=== PATIENT | female | born 1950 | race Caucasian/White ===

== ENCOUNTER → 2023-12-13 | Emergency (ER) | payer OTHER ==
[~2023-12-13] MED LIST: HYDROMORPHONE HCL 0.5 MG/0.5 ML INJ ONE; HYDROMORPHONE HCL 1 MG/ML INJ ONE; KETOROLAC 30 MG/ML INJ ONE; ONDANSETRON 4 MG/2 ML VIAL ONE
[2023-12-13 13:24] LABS: Absolute Eosinophils 0.1 K/uL (0-0.5); Absolute Monocytes 0.4 K/uL (0.1-1.3); Absolute Neutrophil 4.4 K/uL (1.8-8.0); Basophils % 0.6 % (0-1.3); Eosinophils % 1.5 % (0-4.4); Hematocrit 38.2 % (36.0-45.0); Lymphocytes % 17.2 % (15.3-44.8); MCH 30.2 pg (27.0-35.0); MCHC 33.9 g/dL (32.0-36.0); MPV 9.2 fL (7.6-11.3); Monocytes % 6.1 % (3.3-12.3); Neutrophils % 74.6 % (41.7-73.7); Platelets 170 thou/uL (152-406); Red Cell Distribution Width 15.4 % (12.1-15.2)
[2023-12-13 13:25] LABS: PT Prothrombin Time 13.9 SECONDS (9.5-12.5); Protime INR 1.27
[2023-12-13 13:34] LABS: Albumin 3.9 g/dL (3.4-5.0); Anion Gap 10.5 mEq/L (5.0-15.0); Bilirubin Direct 0.3 mg/dL (0-0.2); Bilirubin Indirect, Calculated 0.9 mg/dL (0.2-0.8); Bilirubin Total 1.2 mg/dL (0.2-1.0); Globulin 3.9 g/dL (2.3-3.5); Magnesium 1.9 mg/dL (1.6-2.4); Potassium 3.5 mEq/L (3.5-5.1); Protein, Total 7.8 g/dL (6.4-8.2); Troponin High Sensitivity 26.3 pg/mL (<58.9)
--- NOTE | 2023-12-13 14:37 | RAD REPORT ---
EXAM DESCRIPTION: USExtrem Venous W Compress Bil12/13/2023 1:42 pm CLINICAL HISTORY: Leg pain and swelling COMPARISON: none FINDINGS: The common femoral, superficial femoral, greater saphenous, popliteal and posterior tibial veins bilaterally are compressible and demonstrate augmentation. Doppler demonstrates good flow. Grayscale, color and spectral analysis performed on all vessels A 4.3 x 1.8 x 2.5 centimeter fluid collection right groin does not contain vascularity IMPRESSION: No evidence of deep venous thrombosis involving either lower extremity. 4.3 centimeter fluid collection right groin. A this may represent a subacute hematoma
--- NOTE | 2023-12-13 14:39 | RAD REPORT ---
EXAM DESCRIPTION: Teddy Single View12/13/2023 2:03 pm CLINICAL HISTORY: Chest pain COMPARISON: None FINDINGS: The lungs appear clear of acute infiltrate. The heart is mildly enlarged. Postsurgical changes involve the chest. IMPRESSION: No acute abnormalities displayed
--- NOTE | 2023-12-13 14:42 | RAD REPORT ---
EXAM DESCRIPTION: RAD - Hip Right 2 View - 12/13/2023 2:03 pm CLINICAL HISTORY: Right hip pain FINDINGS: A subcapital fracture right femur with moderate displacement. Lucencies throughout the right ischium and right pubic bone with surrounding sclerosis is of uncertai n etiology. No dislocation noted Osteoporosis
--- NOTE | 2023-12-13 14:44 | RAD REPORT ---
EXAM DESCRIPTION: RAD - Knee Right 2 View - 12/13/2023 2:03 pm CLINICAL HISTORY: Knee pain FINDINGS: No fracture or dislocation Mild to moderate joint space narrowing medial compartment. Diffuse edema within the subcutaneous tissues A small joint effusion
--- NOTE | 2023-12-13 15:03 | EDPHYS ---
Physician Documentation [facility] Name: Amy Gaming Age: 73 yrs Sex: Female : 1950 Arrival Date: 12/13/2023 Time: 12:41 Bed 4 Private MD: ED Physician Alie Rubio HPI: 12/12 13:13 This 73 yrs old Female presents to ER via EMS with complaints of leg pain and swelling. sp3 13:13 73-year-old female with history of hypertension, hypothyroidism with prior right hip sp3 flexors injury last fall for which she received physical therapy for now presents to the ED with a 9-day history of recurrent right flexor and upper leg musculature pain coupled with bilateral lower extremity swelling and calf pain. Patient denies any injury, prolonged immobilization, long travel, prior DVT or PE, chest pain, shortness of breath, back pain, fever, URI symptoms, or any other signs or symptoms on ROS at this time. Patient states that she is not having to use a cane and walker to ambulate again for the last several days. She presents to the ED for further evaluation.. Historical: - Allergies: 12:45 No Known Allergies; ko1 - PMHx: 12:45 Hypertensive disorder; Hypothyroidism; ko1 - Immunization history:: Adult Immunizations up to date. - Social history:: Smoking status: Patient denies any tobacco usage or history of. ROS: 13:15 Constitutional: Negative for fever, chills, and weight loss, Eyes: Negative for injury, sp3 pain, redness, and discharge, ENT: Negative for injury, pain, and discharge, Neck: Negative for injury, pain, and swelling, Cardiovascular: Negative for chest pain, palpitations, and edema, Respiratory: Negative for shortness of breath, cough, wheezing, and pleuritic chest pain, Abdomen/GI: Negative for abdominal pain, nausea, vomiting, diarrhea, and constipation, Back: Negative for injury and pain, : Negative for injury, bleeding, discharge, and swelling, Skin: Negative for injury, rash, and discoloration, Psych: Negative for depression, anxiety, suicide ideation, homicidal ideation, and hallucinations, Allergy/Immunology: Negative for hives, rash, and allergies, Endocrine: Negative for neck swelling, polydipsia, polyuria, polyphagia, and marked weight changes, Hematologic/Lymphatic: Negative for swollen nodes, abnormal bleeding, and unusual bruising, 13:15 All other systems are negative, Exam: 13:15 Constitutional: This is a well developed, well nourished patient who is awake, alert, sp3 and in no acute distress. Head/Face: Normocephalic, atraumatic. Eyes: Pupils equal round and reactive to light, extra-ocular motions intact. Lids and lashes normal. Conjunctiva and sclera are non-icteric and not injected. Cornea within normal limits. Periorbital areas with no swelling, redness, or edema. ENT: Nares patent. No nasal discharge, no septal abnormalities noted. External auditory canals are clear. Oropharynx with no redness, swelling, or masses, exudates, or evidence of obstruction, uvula midline. Mucous membranes moist. Neck: Trachea midline, no thyromegaly or masses palpated, and no cervical lymphadenopathy. Supple, full range of motion without nuchal rigidity, or vertebral point tenderness. No Meningismus. Chest/axilla: Normal chest wall appearance and motion. Nontender with no deformity. No lesions are appreciated. Cardiovascular: Regular rate and rhythm with a normal S1 and S2. No gallops, murmurs, or rubs. Normal PMI, no JVD. No pulse deficits. Respiratory: Lungs have equal breath sounds bilaterally, clear to auscultation and percussion. No rales, rhonchi or wheezes noted. No increased work of breathing, no retractions or nasal flaring. Abdomen/GI: Soft, non-tender, with normal bowel sounds. No distension or tympany. No guarding or rebound. No evidence of tenderness throughout. Skin: Warm, dry with normal turgor. Normal color with no rashes, no lesions, and no evidence of cellulitis. Psych: Awake, alert, with orientation to person, place and time. Behavior, mood, and affect are within normal limits. 13:15 Musculoskeletal/extremity: Patient has pain to palpation of musculature of the anterior thigh and also lateral collateral ligament extending into the calf on the right side. Patient also has pain on the left calf without upper extremity pain. Distal neurovascular exam is normal patient does have 3+ pitting edema.. 14:21 ECG was reviewed by the Attending Physician. EKG demonstrates normal sinus rhythm at 66 sp3 bpm with marked sinus arrhythmia, slightly leftward axis and nonspecific diffuse ST/T changes without evidence of acute ischemia. Vital Signs: 12:42 BP 148 / 115; Pulse 50; Resp 17; Temp 97; Pulse Ox 98% on R/A; ko1 13:24 BP 129 / 103; Pulse 49; Resp 15; Pulse Ox 100% ; ko1 13:30 BP 156 / 94; Pulse 50; Resp 16; Pulse Ox 99% ; ko1 14:21 BP 204 / 91; Pulse 48; Resp 15; Pulse Ox 97% ; ko1 15:50 Weight 84.82 kg (M); aa5 16:09 BP 193 / 58; Pulse 75; Resp 15; Pulse Ox 99% ; ko1 17:28 BP 158 / 63; Pulse 49; Resp 15; Temp 98; Pulse Ox 94% ; ko1 18:41 BP 184 / 61; Pulse 64; Resp 16; Pulse Ox 93% ; bp MDM: 12:42 Patient medically screened. sp3 13:19 Data reviewed: vital signs, nurses notes, EMS record, lab test result(s), EKG, sp3 radiologic studies. ED course: 73-year-old female with right leg pain and bilateral lower extremity swelling. Official diagnosis includes recurrence of muscular strain, peripheral edema, CHF, DVT, electrolyte abnormality, among others. Workup will include cardiac workup EKG, chest x-ray and labs along with x-rays of the right hip and right knee and bilateral ultrasound lower extremity assessing for venous clot. Disposition pending workup and patient course.. 15:00 ED course: Patient has a subcapital femoral neck fracture with displacement and sp3 hematoma on ultrasound. Also has a right knee effusion. Patient insist that she had no trauma. There is no orthopedic coverage today so we will transfer patient to patient's desired hospital of the [facility] system preferably in [place]. Patient's creatinine mildly elevated and alk phos elevated as well. I am concerned that this may be a pathologic fracture due to some other malignancy or other process. Further workup per inpatient team.. 12/12 12:45 Order name: Basic Metabolic Panel; Complete Time: 13:46 sp3 12/12 12:45 Order name: CBC with Diff; Complete Time: 13:46 sp3 12/12 12:45 Order name: LFT's; Complete Time: 13:46 sp3 12/12 12:45 Order name: Magnesium; Complete Time: 13:46 12/12 12:45 Order name: NT PRO-BNP; Complete Time: 13:46 12/12 12:45 Order name: PT-INR; Complete Time: 13:46 12/12 12:45 Order name: Troponin HS; Complete Time: 13:46 12/12 12:45 Order name: XRAY Chest (1 view); Complete Time: 14:50 12/12 12:45 Order name: Hip Right 2 View XRAY; Complete Time: 14:50 12/12 12:45 Order name: Knee Right 2 View XRAY; Complete Time: 14:50 12/12 12:45 Order name: US Extremity Venous W Compression Matheus; Complete Time: 14:50 12/12 12:45 Order name: EKG; Complete Time: 12:46 12/12 12:45 Order name: Cardiac monitoring; Complete Time: 12:48 12/12 12:45 Order name: EKG - Nurse/Tech; Complete Time: 12:54 12/12 12:45 Order name: IV Saline Lock; Complete Time: 13:10 12/12 12:45 Order name: Labs collected and sent; Complete Time: 13:11 12/12 12:45 Order name: O2 Per Protocol; Complete Time: 12:48 12/12 12:45 Order name: O2 Sat Monitoring; Complete Time: 12:48 12/12 13:23 Order name: Recheck Vital Signs; Complete Time: 13:24 3 Administered Medications: 13:24 Drug: Ketorolac IVP 15 mg IVP once Route: IVP; Site: right hand; ko1 13:40 Follow up: Response: No adverse reaction ko1 14:45 Drug: Ondansetron IVP 4 mg IVP once; over 2 minutes Route: IVP; Site: right hand; ko1 16:21 Follow up: Response: No adverse reaction bp 14:48 Drug: HYDROmorphone IVP 0.5 mg IVP once Route: IVP; Site: right hand; ko1 16:21 Follow up: Response: No adverse reaction bp 18:41 Drug: HYDROmorphone IVP 1 mg IVP once Route: IVP; Site: right hand; bp 18:41 Follow up: Response: No adverse reaction bp 18:41 Drug: Ondansetron IVP 4 mg IVP once; over 2 minutes Route: IVP; Site: right hand; bp 18:41 Follow up: Response: No adverse reaction bp Disposition Summary: 12/13/23 15:12 Transfer Ordered Notes: Transfer Location: [facility] sp3 Reason: Higher level of care sp3 Condition: Stable(12/13/23 15:12) sp3 Problem: new sp3 Symptoms: have worsened sp3 Accepting Physician: VAIBHAV hospitalist and orthopedist at [facility](12/13/23 18:42) bp Diagnosis - Right hip femoral neck fracture, right knee effusion, hypertension, possible sp3 pathologic fracture Forms: - Medication Reconciliation Form sp3 - SBAR form sp3 Signatures: Dispatcher [employer] EDMS Robert Bhandari RN RN Alie Alejo MD MD sp3 Becky Draper RN RN ko1 Corrections: (The following items were deleted from the chart) 14:22 14:21 ECG was reviewed by the Attending Physician. EKG demonstrates atrial fibrillation sp3 at 66 bpm with nonspecific diffuse ST's ST changes without evidence of acute ischemia, leftward axis. sp3 15:09 15:02 Home sp3 sp3 15:09 15:02 Stable sp3 sp3 15:09 15:02 Right knee effusion, right lower extremity pain sp3 sp3 15:11 15:00 ED course: Patient has right knee effusion. Otherwise negative workup including sp3 x-rays and ultrasounds. Patient has mild elevation in creatinine and continued high blood pressure. Upon further history she has not taken any of her blood pressure medications and has not seen her doctor since moving here 2 years ago due to not having a PCP. I have counseled her on importance of seeing a doctor. I will start her on HCTZ and discharge her home on p.o. pain meds and orthopedic follow-up.. sp3 15:29 15:00 Knee Immobilizer ordered. sp3 bp 15:29 15:00 Crutches ordered. sp3 bp 18:42 15:12 TBD hospitalist and orthopedist at [facility] sp3 bp
--- NOTE | 2023-12-13 15:03 | ER ---
Nurse's Notes [facility] Name: Amy Gaming Age: 73 yrs Sex: Female : 1950 Arrival Date: 12/13/2023 Time: 12:41 Bed 4 Private MD: Diagnosis: Right hip femoral neck fracture, right knee effusion, hypertension, possible pathologic fracture Presentation: 12/12 12:42 Chief complaint: EMS states: patient has been having pain in right leg for over a week, ko1 unable to walk today due to the pain. Coronavirus screen: At this time, the client does not indicate any symptoms associated with coronavirus-19. Ebola Screen: No symptoms or risks identified at this time. Initial Sepsis Screen: Does the patient meet any 2 criteria? No. Patient's initial sepsis screen is negative. Does the patient have a suspected source of infection? No. Patient's initial sepsis screen is negative. Risk Assessment: Do you want to hurt yourself or someone else? Patient reports no desire to harm self or others. Onset of symptoms is unknown. 12:42 Method Of Arrival: EMS: [facility] ko1 12:42 Acuity: NAM 3 ko1 Triage Assessment: 12:45 General: Appears in no apparent distress. Behavior is calm, cooperative, appropriate ko1 for age. Pain: Complains of pain in right leg. Historical: - Allergies: 12:45 No Known Allergies; ko1 - PMHx: 12:45 Hypertensive disorder; Hypothyroidism; ko1 - Immunization history:: Adult Immunizations up to date. - Social history:: Smoking status: Patient denies any tobacco usage or history of. Screenin:10 [facility] ED Fall Risk Assessment (Adult) History of falling in the last 3 months, ko1 including since admission Yes- single mechanical fall (1 pt) Confusion or Disorientation No (0 pts) Intoxicated or Sedated No (0 pts) Impaired Gait Yes (1 pt) Mobility Assist Device Used Yes (1 pt) Altered Elimination No (0 pt) Score/Fall Risk Level 3 or more points = High Risk Oriented to surroundings, Maintained a safe environment, Educated pt \T\ family on fall prevention, incl call for assistance when getting out of bed, Assessed \T\ reinforced patient's understanding of fall precautions, Provided non-skid footwear, Hourly rounding (assess needs \T\ fall precautionary measures) done, Used ambulatory aids as needed (educated on \T\ assisted with), Used gait belt as appropriate Implemented a Fall Risk Plan of Care, Apply high fall risk patient identification: yellow non skid footwear/ fall signage, Remained w/in arm's length of patient and in sight while toileting, Offered frequent toileting (1:1 observation), Remained with patient while ambulating, Utilized family, sitter, or virtual diagnostic assistant as indicated. Abuse screen: Denies threats or abuse. Denies injuries from another. Nutritional screening: No deficits noted. Tuberculosis screening: No symptoms or risk factors identified. Assessment: 13:13 General: Appears in no apparent distress. uncomfortable, Behavior is calm, cooperative, ko1 appropriate for age. Pain: Complains of pain in right leg. Neuro: No deficits noted. Cardiovascular: No deficits noted. Respiratory: No deficits noted. GI: No signs and/or symptoms were reported involving the gastrointestinal system. : No deficits noted. EENT: No deficits noted. Derm: No deficits noted. Musculoskeletal: Reports pain in right leg. 14:30 Reassessment: No changes from previously documented assessment. Patient is alert, bp oriented x 3, equal unlabored respirations, skin warm/dry/pink. 15:30 Reassessment: DISCHARGE CANCELLED 2/2 XRAY FINDINGS. bp 16:17 Reassessment: REPORT TO [facility] FOR TRANSFER. bp 18:41 Reassessment: PT LENA WITH EMS. bp Vital Signs: 12:42 BP 148 / 115; Pulse 50; Resp 17; Temp 97; Pulse Ox 98% on R/A; ko1 13:24 BP 129 / 103; Pulse 49; Resp 15; Pulse Ox 100% ; ko1 13:30 BP 156 / 94; Pulse 50; Resp 16; Pulse Ox 99% ; ko1 14:21 BP 204 / 91; Pulse 48; Resp 15; Pulse Ox 97% ; ko1 15:50 Weight 84.82 kg (M); aa5 16:09 BP 193 / 58; Pulse 75; Resp 15; Pulse Ox 99% ; ko1 17:28 BP 158 / 63; Pulse 49; Resp 15; Temp 98; Pulse Ox 94% ; ko1 18:41 BP 184 / 61; Pulse 64; Resp 16; Pulse Ox 93% ; bp ED Course: 12:42 Patient arrived in ED. ko1 12:42 Alie Rubio MD is Attending Physician. sp3 12:42 Becky Draper, RN is Primary Nurse. ko1 12:45 Triage completed. ko1 12:45 Arm band placed on right wrist. Patient placed in an exam room, on a stretcher, on ko1 gambling monitor, on pulse oximetry, Patient notified of wait time. 13:10 Inserted saline lock: 20 gauge in right hand, using aseptic technique. Blood collected. ko1 13:11 Patient has correct armband on for positive identification. Fall risk band placed. Bed ko1 in low position. Call light in reach. Side rails up X2. Client placed on continuous cardiac and pulse oximetry monitoring. NIBP monitoring applied. surveillance monitor on. Door closed. Noise minimized. Lights dimmed. Warm blanket given. Pillow given. 13:11 Basic Metabolic Panel Sent. ko1 13:11 CBC with Diff Sent. ko1 13:11 LFT's Sent. ko1 13:11 Magnesium Sent. ko1 13:11 NT PRO-BNP Sent. ko1 13:11 PT-INR Sent. ko1 13:11 Troponin HS Sent. ko1 13:44 US Extremity Venous W Compression Matheus In Process Unspecified. EDMS 14:05 XRAY Chest (1 view) In Process Unspecified. EDMS 14:05 Hip Right 2 View XRAY In Process Unspecified. EDMS 14:05 Knee Right 2 View XRAY In Process Unspecified. EDMS 15:00 Assisted with bedpan. ko1 15:02 Chris Gilbert MD is Referral Physician. sp3 15:41 initiated transfer to [facility]. bd 15:43 pt denied at [facility] due to all campus' being on saturation,per elana. bd 15:58 initiated transfer to [facility], pt accepted in transfer to [facility] er by leonel Amin admin approval given by Conchita Natarajan RN. 16:17 No provider procedures requiring assistance completed. Patient transferred, IV remains bp in place. 16:42 Provided Education on: transfer. Assisted with bedpan. Cleaned of incontinence. ko1 Administered Medications: 13:24 Drug: Ketorolac IVP 15 mg IVP once Route: IVP; Site: right hand; ko1 13:40 Follow up: Response: No adverse reaction ko1 14:45 Drug: Ondansetron IVP 4 mg IVP once; over 2 minutes Route: IVP; Site: right hand; ko1 16:21 Follow up: Response: No adverse reaction bp 14:48 Drug: HYDROmorphone IVP 0.5 mg IVP once Route: IVP; Site: right hand; ko1 16:21 Follow up: Response: No adverse reaction bp 18:41 Drug: HYDROmorphone IVP 1 mg IVP once Route: IVP; Site: right hand; bp 18:41 Follow up: Response: No adverse reaction bp 18:41 Drug: Ondansetron IVP 4 mg IVP once; over 2 minutes Route: IVP; Site: right hand; bp 18:41 Follow up: Response: No adverse reaction bp Medication: 16:42 VIS not applicable for this client. ko1 Outcome: 15:02 Discharge ordered by . sp3 15:12 ER care complete, transfer ordered by sp3 18:42 Transferred by ground EMS Note: [facility] bp 18:42 Condition: stable 18:42 Instructed on the need for transfer, 18:42 Patient left the ED. bp Signatures: Dispatcher [employer] EDMS Joleen Rios Audri RN RN aa5 Robert Bhandari RN RN bp Alie Rubio MD MD sp3 Becky Draper RN RN ko1
[2023-12-13 20:09] VITALS: BP 184/61; TEMP 98; O2SAT 93
--- NOTE | 2023-12-14 17:04 | EKG ---
Test Date: 2023-12-13 Test Time: 12:41:02 Building Pressure Washer: CARMELA MEASUREMENT RESULTS: Intervals: Rate: 66 SC: 172 QRSD: 86 QT: 416 QTc: 436 [place]: P: 81 SC: 172 QRS: -25 T: 85 INTERPRETIVE STATEMENTS: Sinus rhythm with marked sinus arrhythmia Nonspecific ST and T wave abnormality Abnormal ECG No previous ECG available for comparison Electronically Signed On 12-14-23 17:00:59 CDT by Yoan Andrews
== END ==
LOC: ER 12:41
DX: S72.001A Fracture of unspecified part of neck of right femur, initial encounter for closed fracture (principal); M25.461 Effusion, right knee; I10 Essential (primary) hypertension
CPT/HCPCS: 93005; 85025; 80048; 36415; 83735; 85610; 80076; 84484; 83880; 71045; 73502; 73560; 93970; J1170 ×2; J2405 ×2; 96374; 96375; 99285

== ENCOUNTER 2024-01-09 13:28 | Inpatient (IN) | payer OTHER ==
--- OUTSIDE RECORDS SUMMARY | 2024-01-09 13:31 | XMS REPORT | Continuity of Care Document ---
Author Name Unknown Address [address] [facility]. 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 Role Phone ALYSSA KUNZ Primary Care Physician DANIELA Hernandez Attending Clinician Unavail able ALISTAIR GARNER Attending Clinician Donna Fern Bills Attending Clinician UnaRah Castillo Attending Clinician Unavailable ADDIE AGUILERA Attending Clinician UnavailADDIE Morgan Attending Clinician UnavailHafsa Angel PTA Attending Clinician Unavail able Addie Aguilera MD Attending Clinician [phone] Po Manzanares PA-C Attending Clinician [phone] Irais Das PTA Attending Clinician Samara Coulter PT Attending Clinician UnavailPO Muhammad Attending Clinician Unavailable Unknown, Attending Attending Clinician Unavailab shahana Doctor Unassigned, [place] Attending Clinician U Daniela Naqvi MD Attending Clinician [phone] Alyssa Kunz MD Attending Clinician [phone] Pepe BERTRAND, Kailyn Shields Attending Clinician Unavailab le Nurse, [facility] Pcp Assessment Clinic Attending [place] glover Unavailable Rah Jiang MD Attending Clinician [phone] RAH JIANG Attending Clinician Unavailable Scooby Austin Attending Clinician Unavailable Pcp, Medicare Wellness [facility] Fm Attending Clinicia n Unavailable ALYSSA KUNZ Attending Clinician Unavailable Pcp-Lab Attending Clinician Unavailable Srikanth Rogers DO Attending Clinician [phone] DAYNA SINGLETON Attending Clinician Unavailable Alfonso Lucia DO Attending Clinician [phone] Dayna Singleton MD Attending Clinician [phone] Thea Unger MD Attending Clinician + [phone] Tremayne Miller MD Attending Clinician [phone] Fern Mata Admitting Clinician Rah Toney Admitting Clinician Unavailable DANIELA MCQUEEN Admitting Clinician Unavail able Payers Payer Name Policy Type Policy Number Effective Date Expirati on Date Source MEDICARE PART A \T\ B [id number] 2014 00:00:00 PHYSICIAN CAROLINE [id number] 2017 00:00:00 Problems Condition Name Condition Details Condition Category Status Onset Date Resolution Date Last Treatment Date Treating Clinician Comments Source Skin lesion of face Skin lesion of face Disease Active 05-01 00:00: 00 [facility] Liver cyst Liver cyst Disease Active 02-06 00:00: 00 [facility] Hyperbilir ubinemia Hyperbilir ubinemia Disease Active 02-06 00:00: 00 [facility] Invasive ductal carcinoma of breast, stage I, right Invasive ductal carcinoma of breast, stage I, right Disease Active 2017-09 00:00: 00 [facility] Vitamin D deficiency Vitamin D deficiency Disease Active 01-04 00:00: 00 [facility] Essential hypertensi on Essential hypertensi on Disease Active 06-10 00:00: 00 [facility] Acquired hypothyroi dism Acquired hypothyroi dism Disease Active 06-10 00:00: 00 [facility] History of condyloma acuminatum History of condyloma acuminatum Disease Active 09-25 00:00: 00 [facility] History of cervical dysplasia History of cervical dysplasia Disease Active 09-25 00:00: 00 [facility] Urinary incontinen ce, unspecifie d incontinen ce type Urinary incontinen ce, unspecifie d incontinen ce type Disease Active 09-24 00:00: 00 [facility] Cystocele, midline Cystocele, midline Disease Active 09-24 00:00: 00 [facility] Invasive ductal carcinoma of breast, stage IIIA, left Invasive ductal carcinoma of breast, stage IIIA, left Disease Active 2014-09 00:00: 00 Overview: Formattin g of this note might be different from the original. Cancer type: Breast cancer, bilateral Date of diagnosis : January 2014.Age when diagnosed : 64Patholo gy report: Invasive ductal carcinoma of left breast, invasive ductal carcinoma of right breastSta ge: Right Breast Stage I: T1, N0, M0Left Breast Stage IIIA: T2, N2, M0 Surgery: Yes. Surgery: Double partial mastectom y Surgery Date: 11/04/2015 Radiation :Radiatio n to chestLast day of radiation : 04/24/2016 (L), 04/16/2016 (R)Chemot herapy: Yes. Completed chemo?: yes.Last date of chemother apy: 02/10/2016 Chemother apy agent: [id number] tor Therapy: Anastrazo le, letrozole . Currently taking exemestan e. [facility] Allergies, Adverse Reactions, Alerts Allergy Name Allergy Type Status Severity Reaction(s) Onset Date Inactive Date Treating Clinician Comments Source codeine DA Active U NAUSEA 12-13 00:00: 00 [facility] aspirin DA Active U NAUSEA 12-13 00:00: 00 [facility] cefdinir DA Active U NAUSEA 12-13 00:00: 00 [facility] morphine DA Active U NAUSEA 12-13 00:00: 00 [facility] No Known Allergie s DA Active U 12-12 00:00: 00 [facility] MORPHINE DRUG INGREDI Active N/V 04-11 00:00: 00 [facility] Morphine Propensi ty to adverse reaction s Active Nausea and/or Vomiting 04-11 00:00: 00 [facility] ASPIRIN DRUG INGREDI Active Other-Cmnt 2016-09 00:00: 00 [facility] Aspirin Propensi ty to adverse reaction s Active Other - See comments 2016-09 00:00: 00 [facility] Iodine And Iodide Containi ng Products Propensi ty to adverse reaction s Active Unknown - See comments 05-01 00:00: 00 Upsets her stomach [facility] CEFDINIR DRUG INGREDI Active Hives 05-01 00:00: 00 [facility] CODEINE DRUG INGREDI Active Unknown-Cmnt 05-01 00:00: 00 [facility] IODINE AND IODIDE CONTAINI NG PRODUCTS Drug Class Active Unknown-Cmnt 05-01 00:00: 00 [facility] Cefdinir Propensi ty to adverse reaction s Active Hives 05-01 00:00: 00 [facility] Iodine And Iodide Containi ng Products Propensi ty to adverse reaction s Active Unknown - See comments 05-01 00:00: 00 Upsets her stomach [facility] Codeine Propensi ty to adverse reaction s Active Unknown - See comments 05-01 00:00: 00 [facility] Social History Social Habit Start Date Stop Date Quantity Comments Source History SDOH Alcohol Frequency [facility] History SDOH Alcohol Std Drinks [facility] History SDOH Alcohol Binge [facility] Gender identity [facility] Sexual orientation [facility] Alcohol intake 2023-04-30 00:00:00 2023-04-30 00:00:00 0 /d [facility] Exposure to SARS-CoV-2 (event) 2022-05-24 00:00:00 2022-06-03 13:15:00 Not sure [facility] Tobacco use and exposure 2022-04-24 00:00:00 2022-04-24 00:00:00 Smokeless tobacco non-user [facility] History of Social function 2022-04-24 00:00:00 2022-04-24 00:00:00 [facility] Alcohol Comment 2015-05-07 00:00:00 2015-05-07 00:00:00 drank for 4-5 years, quit 1987 [facility] Sex Assigned At 1950 00:00:00 1950 00:00:00 [facility] Smoking Status Start Date Stop Date Source Never smoked tobacco [facility] Medications Ordered Medication Name Filled Medication Name Start Date Stop Date Current Medication? Ordering Clinician Indication Dosage Frequency Signature (SIG) Comments Components Source albuterol (VENTOLIN) inhaler 2 Puff 2022-09 20:00: 00 07-20 19:17 :00 No [id number] 2{puff} [facility] albuterol 90 mcg/actuati on inhaler 2022-09 00:00: 00 Yes [id number] 2{puff} Inhale 2 Puffs every 6 (six) hours as needed for Shortness of Breath. [facility] HYDROCHLORO THIAZIDE 25 mg tablet 01-30 00:00: 00 Yes [id number] TAKE 1 TABLET BY MOUTH EVERY DAY [facility] LEVOTHYROXI NE 50 mcg tablet 01-30 00:00: 00 Yes [id number] 50ug TAKE 1 TABLET BY MOUTH EVERY MORNING. ON EMPTY STOMACH. [facility] multivit with iron,minera ls (MULTIVITAM IN AND MINERALS ORAL) 01-03 11:29: 15 Yes Take by mouth daily. [facility] levothyroxi ne 50 mcg tablet 12-20 00:00: 00 01-30 00:00 :00 No [id number] 50ug Take 1 tablet by mouth every morning. On empty stomach. [facility] hydroCHLORO thiazide 25 mg tablet 12-20 00:00: 00 01-30 00:00 :00 No [id number] 25mg Take 1 tablet by mouth daily. [facility] HYDROCHLORO THIAZIDE 25 mg tablet 3- 00:00: 00 12-20 00:00 :00 No [id number] TAKE 1 TABLET BY MOUTH EVERY DAY [facility] levothyroxi ne 50 mcg tablet 2019-09 2- 00:00: 00 12-11 00:00 :00 No [id number] 50ug Take 1 tablet by mouth every morning. On empty stomach. [facility] albuterol (PROAIR HFA) 90 mcg/actuati on inhaler 2019-09 00:00: 00 Yes [id number] 2{puff} Inhale 2 Puffs every 6 (six) hours as needed for Wheezing or Shortness of Breath. [facility] Cholecalcif sly, Vitamin D3, (VITAMIN D3) 2,000 unit capsule 2016-09 00:00: 00 Yes [id number] Take 1 capsule by mouth daily. [facility] Vital Signs Vital Name Observation Time Observation Value Comments S ource Systolic blood pressure 2023-07-20 19:21:00 146 mm[Hg] [facility] Diastolic blood pressure 2023-07-20 19:21:00 85 mm[Hg] [facility] Heart rate 2023-07-20 19:01:00 60 /min [facility] Body temperature 2023-07-20 19:01:00 36.72 [place] [facility] Respiratory rate 2023-07-20 19:01:00 18 /min [facility] Body height 2023-07-20 19:01:00 160 cm [facility] Body weight 2023-07-20 19:01:00 91.581 kg [facility] BMI 2023-07-20 19:01:00 35.76 kg/m2 [facility] Oxygen saturation in Arterial blood by Pulse oximetry 2023-07-20 19:01:00 95 /min [facility] Systolic blood pressure 2023-04-30 18:03:00 163 mm[Hg] [facility] Diastolic blood pressure 2023-04-30 18:03:00 79 mm[Hg] [facility] Heart rate 2023-04-30 18:03:00 61 /min [facility] Respiratory rate 2023-04-30 18:03:00 18 /min [facility] Body height 2023-04-30 18:03:00 160 cm [facility] Body weight 2023-04-30 18:03:00 92.035 kg [facility] BMI 2023-04-30 18:03:00 35.94 kg/m2 [facility] Oxygen saturation in Arterial blood by Pulse oximetry 2023-04-30 18:03:00 97 /min [facility] Systolic blood pressure 2022-04-24 19:04:00 157 mm[Hg] [facility] Diastolic blood pressure 2022-04-24 19:04:00 93 mm[Hg] [facility] Heart rate 2022-04-24 19:04:00 87 /min Unive [facility] Body temperature 2022-04-24 19:04:00 36.94 [place] [facility] Body height 2022-04-24 19:04:00 162.6 cm [facility] Body weight 2022-04-24 19:04:00 92.806 kg [facility] BMI 2022-04-24 19:04:00 35.12 kg/m2 [facility] Oxygen saturation in Arterial blood by Pulse oximetry 2022-04-24 19:04:00 95 /min [facility] Procedures Procedure Date / Time Performed Performing Clinician Source [id number] 2023-12-17 00:00:00 ROSMI [facility] [id number] 2023-12-17 00:00:00 ROSMI [facility] [id number] 2023-12-15 00:00:00 SHAJA02 [facility] XR HIPS 2 VW BILATERAL 2023-07-20 19:48:44 Janee Manzanares [facility] ASSIGNMENT OF BENEFITS 2023-07-20 18:47:56 Docto r Unassigned, [place] [facility] BI SCREENING TOMOSYNTHESIS BILATERAL 2023-04-30 17:23:27 Daniela Mcqueen [facility] Encounters Start Date/Time End Date/Time Encounter Type Admission Type Attending [facility] Facility Care Department Encounter ID Source 2023-12-16 17:55:00 2023-12-24 12:35:00 Inpatient Fern Tovar [facility] [id number] [facility] 2023-12-13 22:03:00 2023-12-16 18:08:00 Inpatient Rah Ramirez [facility] MED[facility].01 [id number] [facility] 2023-09-09 09:30:00 2023-09-09 10:14:38 Outpatient R ADDIE AGUILERA CRAIG [facility] [id number] [facility] 2023-09-09 09:30:00 2023-09-09 10:14:38 Ancillary Visit Hafsa Villa Craig L [facility] 1.2.840.114 350.1.13.10 4.2.7.2.686 [id number] [facility] 2023-09-08 11:00:00 2023-09-08 11:45:00 Ancillary Visit Hafsa Villa Craig L [facility] 1.2.840.114 350.1.13.10 4.2.7.2.686 [id number] [facility] 2023-09-02 11:00:00 2023-09-02 11:45:00 Ancillary Visit Hafsa Villa Craig L Vanaphan, Nancy [facility] 1.2.840.114 350.1.13.10 4.2.7.2.686 [id number] [facility] 2023-08-31 10:15:00 2023-08-31 11:00:00 [facility]illary [facility] 1.2.840.114 350.1.13.10 4.2.7.2.686 [id number] [facility] 2023-08-24 16:00:00 2023-08-24 16:33:59 Ancillary Visit Samara Can[facility] 1.2.840.114 350.1.13.10 4.2.7.2.686 [id number] [facility] 2023-08-20 10:15:00 2023-08-20 11:06:21 Ancillary Visit Hafsa Villa Craig L Vanaphan, [facility] BUILDING 1.2.840.114 350.1.13.10 4.2.7.2.686 [id number] [facility] 2023-08-18 11:00:00 2023-08-18 11:45:00 Ancillary [facility]sa [facility] 1.2.840.114 350.1.13.10 4.2.7.2.686 [id number] [facility] 2023-08-18 11:00:00 2023-08-18 11:00:00 Outpatient R ADDIE AGUILERA CRAIG [facility] [id number] [facility] 2023-08-16 11:00:00 2023-08-16 11:00:00 Outpatient R [facility] [id number] [facility] 2023-08-10 09:30:00 2023-08-10 10:23:34 Ancillary Visit Hafsa Villa Craig L [facility] 1.2840.114 350.1.13.10 4.2.7.2.686 [id number] [facility] 2023-08-04 09:30:00 2023-08-04 10:15:00 Ancillary Visit Allen [facility] 1.2840.114 350.1.13.10 4.2.7.2.686 [id number] [facility] 2023-07-30 10:15:00 2023-07-30 11:03:11 Ancillary Visit Samara Cano Craig L [facility] 1.2.114 350.1.13.10 4.2.7.2.686 [id number] [facility] 2023-07-20 14:12:34 2023-07-20 23:59:00 Outpatient R BILLY PO [facility] [id number] [facility] 2023-07-20 14:12:34 2023-07-20 23:59:00 Hospital Encounter Billy Po [facility] 1.2840.114 350.1.13.10 4.2.7.2.686 [id number] [facility] 2023-07-20 13:40:00 2023-07-20 15:17:33 Urgent Care Po Manzanares Unknown, Attending [facility] 1.2840.114 350.1.13.10 4.2.7.2.686 [id number] [facility] 2023-07-20 00:00:00 2023-07-20 00:00:00 Orders Only Doctor Unassigned, [place] [facility] 1.2840.114 350.1.13.10 4.2.7.2.686 [id number] [facility] 2023-04-30 11:47:52 2023-04-30 23:59:00 Hospital Encounter Daniela Mcqueen [facility] 1.2.840.114 350.1.13.10 4.2.7.2.686 [id number] [facility] 2023-04-30 13:00:00 2023-04-30 13:15:00 Office Visit Daniela Mcqueen [facility] 1.2.840.114 350.1.13.10 4.2.7.2.686 [id number] [facility] 2023-04-30 13:00:00 2023-04-30 13:00:00 Outpatient R CHARISSE DANIELA [facility] [id number] [facility] 2023-01-29 00:00:00 2023-01-29 00:00:00 Patient Secure Msg KunzAlyssa [facility] 1.2.840.114 350.1.13.10 4.2.7.2.686 [id number] [facility] 2022-06-29 00:00:00 2022-06-29 00:00:00 Patient Secure Msg Doctor Unassigned, [place] [facility] 1.2.840.114 350.1.13.10 4.2.7.2.686 [id number] [facility] 2022-04-25 00:00:00 2022-04-25 00:00:00 Patient Secure Msg Doctor Unassigned, [place] [facility] 1.2.840.114 350.1.13.10 4.2.7.2.686 [id number] [facility] 2022-04-24 13:03:42 2022-04-24 23:59:00 Outpatient R DANIELA MCQUEEN [facility] [id number] [facility] 2022-04-24 13:03:42 2022-04-24 23:59:00 Hospital Encounter Daniela Mcqueen [facility] 1.2.840.114 350.1.13.10 4.2.7.2.686 [id number] [facility] 2022-04-24 14:15:00 2022-04-24 14:30:00 [facility] 1.2.840.114 350.1.13.10 4.2.7.2.686 [id number] [facility] 2022-04-24 14:15:00 2022-04-24 14:15:00 Outpatient R DANIELA MCQUEEN [facility] [id number] [facility] 2022-03-20 00:00:00 2022-03-20 00:00:00 Refill Alyssa Kunz [facility] 1.2.840.114 350.1.13.10 4.2.7.2.686 [id number] [facility] 2022-01-30 00:00:00 2022-01-30 00:00:00 Refill Alyssa Kunz [facility] 1.2.840.114 350.1.13.10 4.2.7.2.686 [id number] [facility] 2021-05-09 00:00:00 2021-05-09 00:00:00 Patient Secure Msg Alyssa Kunz [facility] 1.2.840.114 350.1.13.10 4.2.7.2.686 [id number] [facility] 2021-05-07 00:00:00 2021-05-07 00:00:00 Patient Secure Msg Doctor Unassigned, [place] [facility] 1.2.840.114 350.1.13.10 4.2.7.2.686 [id number] [facility] 2021-04-30 00:00:00 2021-04-30 00:00:00 Letter (Out) Kailyn Cantu [facility] 1.0.114 350.1.13.10 4.2.7.2.686 [id number] [facility] 2021-04-30 00:00:00 2021-04-30 00:00:00 Telephone Alyssa Kunz [facility] 1.0.114 350.1.13.10 4.2.7.2.686 [id number] [facility] 2021-04-30 00:00:00 2021-04-30 00:00:00 Patient Secure Msg Doctor Unassigned, [place] [facility] 1.0.114 350.1.13.10 4.2.7.2.686 [id number] [facility] 2021-04-29 18:30:33 2021-04-29 18:45:33 Laboratory Only Nurse, Gal Pcp Assessment Clinic Rah Jiang [facility] 1.840.114 350.1.13.10 4.2.7.2.686 [id number] [facility] 2021-04-29 18:30:00 2021-04-29 18:30:00 Outpatient RAH CREWS [facility] [id number] [facility] 2021-04-08 13:00:00 2021-04-08 13:00:00 Outpatient DANIELA NORMAN [facility] [id number] [facility] 2021-04-01 09:17:33 2021-04-01 23:59:00 Hospital Encounter Daniela Mcqueen [facility] 1.840.114 350.1.13.10 4.2.7.2.686 [id number] [facility] 2021-04-01 00:00:00 2021-04-01 00:00:00 Outpatient DANIELA NORMAN [facility] [id number] [facility] 2021-01-18 00:00:00 2021-01-18 00:00:00 Patient Secure Msg Doctor Unassigned, [place] [facility]. 1..114 350.1.13.10 4.2.7.2.686 [id number] [facility] 2021-01-14 00:00:00 2021-01-14 00:00:00 Pre Visit Outreach Scooby Austin [facility] 1.114 350.1.13.10 4.2.7.2.686 [id number] [facility] 2021-01-03 10:55:07 2021-01-03 11:46:59 Nurse Visit Pcp, Medicare Wellness Gal Alyssa Kunz [facility] 1..114 350.1.13.10 4.2.7.2.686 [id number] [facility] 2021-01-03 11:00:00 2021-01-03 11:00:00 Outpatient R ALYSSA KUNZ [facility] [id number] [facility] 2020-12-24 00:00:00 2020-12-24 00:00:00 Pre Visit Outreach Alyssa Kunz [facility] 1..114 350.1.13.10 4.2.7.2.686 [id number] [facility] 2020-12-20 12:38:06 2020-12-20 12:53:06 Auto Service Station Attendant Visit Pcp-Lab Alyssa Kunz [facility] 1.20.114 350.1.13.10 4.2.7.2.686 [id number] [facility] 2020-12-20 11:16:56 2020-12-20 12:40:04 Office Visit Alyssa Kunz [facility] 1.2.840.114 350.1.13.10 4.2.7.2.686 [id number] [facility] 2020-12-20 11:00:00 2020-12-20 11:00:00 Outpatient R ALYSSA KUNZ [facility] [id number] [facility] 2020-12-20 00:00:00 2020-12-20 00:00:00 Orders Only Doctor Unassigned, [place] [facility] 1.2.840.114 350.1.13.10 4.2.7.2.686 [id number] [facility] 2020-12-11 00:00:00 2020-12-11 00:00:00 Refill Alyssa Kunz [facility] 1.2.840.114 350.1.13.10 4.2.7.2.686 [id number] [facility] 2020-11-27 00:00:00 2020-11-27 00:00:00 Patient Secure Msg Alyssa Kunz [facility] 1.2.840.114 350.1.13.10 4.2.7.2.686 [id number] [facility] 2020-11-25 00:00:00 2020-11-25 00:00:00 Patient Outreach Srikanth Rogers [facility] 1.2.840.114 350.1.13.10 4.2.7.2.686 [id number] [facility] 2020-11-21 00:00:00 2020-11-21 00:00:00 Refill Alyssa Kunz [facility] 1.2.840.114 350.1.13.10 4.2.7.2.686 [id number] [facility] 2020-08-27 00:00:00 2020-08-27 00:00:00 Refill Alyssa Kunz [facility] 1.2.840.114 350.1.13.10 4.2.7.2.686 [id number] [facility] 2020-08-19 00:00:00 2020-08-19 00:00:00 Refill Alyssa Kunz [facility] 1.2.840.114 350.1.13.10 4.2.7.2.686 [id number] [facility] 2020-07-23 00:00:00 2020-07-23 00:00:00 Refill Alyssa Kunz [facility] 1.2.840.114 350.1.13.10 4.2.7.2.686 [id number] [facility] 2020-07-15 00:00:00 2020-07-15 00:00:00 Refill Alyssa Kunz [facility] 1.2.840.114 350.1.13.10 4.2.7.2.686 [id number] [facility] 2020-06-21 12:08:08 2020-06-21 12:41:20 Auto Service Station Attendant Visit Pcp-Lab Alyssa Kunz [facility] 1.2.840.114 350.1.13.10 4.2.7.2.686 [id number] [facility] 2020-06-21 10:56:02 2020-06-21 12:09:31 Office Visit Alyssa Kunz [facility] 1.2.840.114 350.1.13.10 4.2.7.2.686 [id number] [facility] 2020-06-21 11:00:00 2020-06-21 11:00:00 Outpatient R ALYSSA KUNZ [facility] [id number] [facility] 2020-04-10 09:11:00 2020-04-10 23:59:00 Hospital Encounter [facility] 1.0.114 350.1.13.10 4.2.7.2.686 [id number] [facility] 2020-04-10 09:10:59 2020-04-10 09:10:59 Outpatient R [facility] [id number] [facility] 2020-04-10 09:10:00 2020-04-10 09:10:00 Hospital Encounter [facility] 1.0.114 350.1.13.10 4.2.7.2.686 [id number] [facility] 2020-03-26 09:48:37 2020-03-26 10:03:37 Office Visit Charisse Daniela [facility] 1.0.114 350.1.13.10 4.2.7.2.686 [id number] [facility] 2020-03-26 10:00:00 2020-03-26 10:00:00 Outpatient R CHARISSE DANIELA [facility] [id number] [facility] 2020-03-25 15:00:00 2020-03-25 15:00:00 Outpatient DAYNA MCCANN [facility] [id number] [facility] 2020-03-25 11:47:14 2020-03-25 12:07:14 Telemedici ne Visit Alfonso Lucia Madiha A [facility] 1..114 350.1.13.10 4.2.7.2.686 [id number] [facility] 2020-03-25 00:00:00 2020-03-25 00:00:00 Refill UngerThea [facility] 1.2.840.114 350.1.13.10 4.2.7.2.686 [id number] [facility] 2020-03-08 13:41:32 2020-03-08 23:59:00 Outpatient DANIELA NORMAN [facility] [id number] [facility] 2020-03-08 13:41:00 2020-03-08 23:59:00 Hospital Encounter Daniela Mcqueen [facility] 1.2.840.114 350.1.13.10 4.2.7.2.686 [id number] [facility] 2020-03-08 14:00:00 2020-03-08 14:00:00 Outpatient DANIELA NORMAN [facility] [id number] [facility] 2019-12-14 00:00:00 2019-12-14 00:00:00 Refpro UngerThea [facility] 1.2.840.114 350.1.13.10 4.2.7.2.686 [id number] [facility] 2019-06-09 00:00:00 2019-06-09 00:00:00 Aleah UngerThea [facility] 1.2.840.114 350.1.13.10 4.2.7.2.686 [id number] [facility] 2019-06-06 00:00:00 2019-06-06 00:00:00 Aleah UngerThea sargent Jo [facility] 1.2.840.114 350.1.13.10 4.2.7.2.686 [id number] [facility] 2019-05-29 00:00:00 2019-05-29 00:00:00 Aleah UngerRobertThea [facility] 1.2.840.114 350.1.13.10 4.2.7.2.686 [id number] [facility] 2019-05-27 00:00:00 2019-05-27 00:00:00 Tremayne Verma [facility] 1.2.840.114 350.1.13.10 4.2.7.2.686 [id number] [facility] Results Test Description Test Time Test Comments Results Result Co mments Source COMPREHENSIVE METABOLIC [id number] 06:52:00* Test Item Value Reference Range Interpretation Comme nts SODIUM (test code = NA) 133 mEq/L 134-147 L POTASSIUM (test code = K) 3.9 mEq/L 3.4-5.0 N CHLORIDE (test code = CL) 100 mEq/L 100-108 N CARBON DIOXIDE (test code = CO2) 26 mEq/l 21-33 N ANION GAP (test code = GAP) 11 0-20 N GLUCOSE (test code = GLU) 129 mg/dL 77-141 N BLOOD UREA NITROGEN (test code = BUN) 41 mg/dL 7-25 H GLOMERULAR FILTRATION RATE (test code = GFR) 59.1 70-80 L The Glomerular Filtration Rate is a calculated parameterbased on serum Creatinine, patient age and sex. GFR valuesless than 60 mL/min/1.73 square meters are indicative ofChronic Kidney Disease. Values less than 15 mL/min/1.73square meters indicate Kidney failure. The calculation forGFR is based on the CKD-EPI (202) calculation. This formulais race indifferent and is the recommended formula for GFRby the National Kidney Foundation for Adults.The GFR will not calculate if the sex is unknown or if thepatient's age is <18 years. CREATININE (test code = CREAT) 1.0 mg/dL 0.6-1.3 N TOTAL PROTEIN (test code = PROT) 5.8 g/dL 6.4-8.2 L ALBUMIN (test code = ALB) 3.00 g/dL 3.4-5.0 L CALCIUM (test code = CA) 7.6 mg/dL 8.0-10.5 L BILIRUBIN TOTAL (test code = BILT) 1.10 mg/dL 0.0-1.0 H SGOT/AST (test code = AST) 68 IUnit/L 8-34 H SGPT/ALT (test code = ALT) 80 IUnit/L 10-49 H ALKALINE PHOSPHATASE TOTAL (test code = ALKP) 157 IUnit/L 20-125 H CBC W/AUTO [id number] 06:41:00* Test Item Value Reference Range Interpretation Comme nts WHITE BLOOD CELL (test code = WBC) 10.9 x10 3/uL 4.5-11.0 N RED BLOOD CELL (test code = RBC) 3.78 x10 6/uL 3.54-5.02 N HEMOGLOBIN (test code = HGB) 11.5 g/dL 11.0-15.0 N HEMATOCRIT (test code = HCT) 33.9 % 33.0-45.0 N MEAN CELL VOLUME (test code = MCV) 89.7 fL 81.0-99.0 N MEAN CELL HGB (test code = MCH) 30.4 pg 27.0-33.0 N MEAN CELL HGB CONCETRATION (test code = MCHC) 33.9 g/dL 33.0-37.0 N RED CELL DISTRIBUTION WIDTH CV (test code = RDW) 14.3 % 11.5-14.5 N RED CELL DISTRIBUTION WIDTH SD (test code = RDW-SD) 46.6 fL 37.0-54.0 N PLATELET COUNT (test code = PLT) 245 x10 3/uL 150-400 N MEAN PLATELET VOLUME (test c ode = MPV) 11.3 fL 7.0-9.0 H NEUTROPHIL % (test code = NT%) 84.6 % 56.0-77.0 H IMMATURE GRANULOCYTE % (test code = IG%) 2.8 % 0.0-2.0 H LYMPHOCYTE % (test code = LY%) 8.0 % 14.0-32.0 L MONOCYTE % (test code = MO%) 4.3 % 4.8-9.0 L EOSINOPHIL % (test code = EO%) 0.0 % 0.3-3.7 L BASOPHIL % (test code = BA%) 0.3 % 0.0-2.0 N NUCLEATED RBC % (test code = NRBC%) 0.0 % 0-0 N NEUTROPHIL # (test code = NT#) 9.20 x10 3/uL 2.0-7.6 H IMMATURE GRANULOCYTE # (test code = IG#) 0.31 x10 3/uL 0.00-0.03 H LYMPHOCYTE # (test code = LY#) 0.87 x10 3/uL 1.0-3.8 L MONOCYTE # (test code = MO#) 0.47 x10 3/uL 0.1-0.8 N EOSINOPHIL # (test code = EO#) 0.00 x10 3/uL 0.0-0.2 N BASOPHIL # (test code = BA#) 0.03 x10 3/uL 0.0-0.2 N NUCLEATED RBC # (test code = NRBC#) 0.00 x10 3/uL 0.0-0.1 N COMPREHENSIVE METABOLIC [id number] 05:13:00* Test Item Value Reference Range Interpretation Comme nts SODIUM (test code = NA) 136 mEq/L 134-147 N POTASSIUM (test code = K) 3.7 mEq/L 3.4-5.0 N CHLORIDE (test code = CL) 104 mEq/L 100-108 N CARBON DIOXIDE (test code = CO2) 26 mEq/l 21-33 N ANION GAP (test code = GAP) 10 0-20 N GLUCOSE (test code = GLU) 117 mg/dL 77-141 N BLOOD UREA NITROGEN (test code = BUN) 38 mg/dL 7-25 H GLOMERULAR FILTRATION RATE (test code = GFR) 67.1 70-80 L The Glomerular Filtration Rate is a calculated parameterbased on serum Creatinine, patient age and sex. GFR valuesless than 60 mL/min/1.73 square meters are indicative ofChronic Kidney Disease. Values less than 15 mL/min/1.73square meters indicate Kidney failure. The calculation forGFR is based on the CKD-EPI (202) calculation. This formulais race indifferent and is the recommended formula for GFRby the National Kidney Foundation for Adults.The GFR will not calculate if the sex is unknown or if thepatient's age is <18 years. CREATININE (test code = CREAT) 0.9 mg/dL 0.6-1.3 N TOTAL PROTEIN (test code = PROT) 5.7 g/dL 6.4-8.2 L ALBUMIN (test code = ALB) 2.90 g/dL 3.4-5.0 L CALCIUM (test code = CA) 7.5 mg/dL 8.0-10.5 L BILIRUBIN TOTAL (test code = BILT) 0.90 mg/dL 0.0-1.0 N SGOT/AST (test code = AST) 73 IUnit/L 8-34 H SGPT/ALT (test code = ALT) 42 IUnit/L 10-49 N ALKALINE PHOSPHATASE TOTAL (test code = ALKP) 159 IUnit/L 20-125 H CA27-29, [id number] 05:13:00* Test Item Value Reference Range Interpretation Comme nts CA27-29, BIOMIRA (test code = QU2085) 51.4 U/mL 0.0-38.6 A Siemens Practice IgnitionauCyphoma Immunochemiluminometric Methodology (ICMA)Values obtained with different assay methods or kits cannotbe used interchangeably. Results cannot be interpreted asabsolute evidence of the presence or absence of malignantdisease.Performed At: [facility] [address] [id number] Faria MD Ph:[phone] [id number] 10:08:00* Test Item Value Reference Range Interpretation Comme [facility] CA 15-3 (test code = CA15) 35.8 U/mL 0.0-25.0 H [facility] Electrochemiluminescence Immunoassay(ECLIA)Values obtained with different assay methods or kits cannotbe used interchangeably. Results cannot be interpreted asabsolute evidence of the presence or absence of malignantdisease.Performed At: [facility] [id number] Faria MD Ph:[phone] CBC W/AUTO [id number] 07:04:00* Test Item Value Reference Range Interpretation Comme nts WHITE BLOOD CELL (test code = WBC) 9.3 x10 3/uL 4.5-11.0 N RED BLOOD CELL (test code = RBC) 3.63 x10 6/uL 3.54-5.02 N HEMOGLOBIN (test code = HGB) 11.0 g/dL 11.0-15.0 N HEMATOCRIT (test code = HCT) 32.1 % 33.0-45.0 L MEAN CELL VOLUME (test code = MCV) 88.4 fL 81.0-99.0 N MEAN CELL HGB (test code = MCH) 30.3 pg 27.0-33.0 N MEAN CELL HGB CONCETRATION (test code = MCHC) 34.3 g/dL 33.0-37.0 N RED CELL DISTRIBUTION WIDTH CV (test code = RDW) 14.3 % 11.5-14.5 N RED CELL DISTRIBUTION WIDTH SD (test code = RDW-SD) 46.5 fL 37.0-54.0 N PLATELET COUNT (test code = PLT) 192 x10 3/uL 150-400 N MEAN PLATELET VOLUME (test c ode = MPV) 11.2 fL 7.0-9.0 H NEUTROPHIL % (test code = NT%) 85.8 % 56.0-77.0 H IMMATURE GRANULOCYTE % (test code = IG%) 1.6 % 0.0-2.0 N LYMPHOCYTE % (test code = LY%) 7.0 % 14.0-32.0 L MONOCYTE % (test code = MO%) 5.4 % 4.8-9.0 N EOSINOPHIL % (test code = EO%) 0.0 % 0.3-3.7 L BASOPHIL % (test code = BA%) 0.2 % 0.0-2.0 N NUCLEATED RBC % (test code = NRBC%) 0.0 % 0-0 N NEUTROPHIL # (test code = NT#) 7.98 x10 3/uL 2.0-7.6 H IMMATURE GRANULOCYTE # (test code = IG#) 0.15 x10 3/uL 0.00-0.03 H LYMPHOCYTE # (test code = LY#) 0.65 x10 3/uL 1.0-3.8 L MONOCYTE # (test code = MO#) 0.50 x10 3/uL 0.1-0.8 N EOSINOPHIL # (test code = EO#) 0.00 x10 3/uL 0.0-0.2 N BASOPHIL # (test code = BA#) 0.02 x10 3/uL 0.0-0.2 N NUCLEATED RBC # (test code = NRBC#) 0.00 x10 3/uL 0.0-0.1 N VITAMIN [id number] 07:04:00* Test Item Value Reference Range Interpretation Comme nts VITAMIN B12 (test code = VITB12) 899 pg/mL 193-986 N Indication for Test: Osteopenia/Bone Dis RiskFOLIC [id number] 07:04:00* Test Item Value Reference Range Interpretation Comme nts FOLIC ACID (test code = FOL) 8.2 ng/mL 3.1-17.5 N Indication for Test: Osteopenia/Bone Dis RiskVITAMIN D [id number] 07:04:00* Test Item Value Reference Range Interpretation Comme nts VITAMIN D 25-HYDROXY (test c ode = VITD25) 37.7 ng/mL 30-100 N Indication for Test: Osteopenia/Bone Dis RiskTHYROID STIMULATING HORMONE 2023-12-17 07:03:00* Test Item Value Reference Range Interpretation Comme nts THYROID STIMULATING HORMONE (test code = TSH) 4.79 0.42-5.47 N Result s in sunli-International Units/mL COVID 19 Asymptomatic IH [id number] 12:47:00* Test Item Value Reference Range Interpretation Comme nts COVID 19 Asymptomatic IH AG (test code = COVNONPUIAG) Negative Negative A negative resul t is presumptive and should be confirmedwith an FDA authorized molecular assay, if necessary forpatient management.A positive result does not rule out co-infections withother pathogens.This test detects both viable (live) and non-viable,SARS-CoV, and SARS-CoV-2. Test performance depends on theamount of virus (antigen) in the sample.This test has not been FDA cleared or approved; the test hasbeen authorized by FDA under an Emergency Use Authorization(EUA) for use by laboratories certified under the CLIA thatmeet the requirements to perform moderate, high or waivedcomplexity tests. BASIC METABOLIC [id number] 07:18:00* Test Item Value Reference Range Interpretation Comme nts SODIUM (test code = NA) 137 mEq/L 134-147 N POTASSIUM (test code = K) 4.0 mEq/L 3.4-5.0 N CHLORIDE (test code = CL) 104 mEq/L 100-108 N CARBON DIOXIDE (test code = CO2) 24 mEq/l 21-33 N ANION GAP (test code = GAP) 13 0-20 N GLUCOSE (test code = GLU) 105 mg/dL 77-141 N BLOOD UREA NITROGEN (test code = BUN) 41 mg/dL 7-25 H GLOMERULAR FILTRATION RATE (test code = GFR) 39.5 70-80 L The Glomerular Filtration Rate is a calculated parameterbased on serum Creatinine, patient age and sex. GFR valuesless than 60 mL/min/1.73 square meters are indicative ofChronic Kidney Disease. Values less than 15 mL/min/1.73square meters indicate Kidney failure. The calculation forGFR is based on the CKD-EPI (202) calculation. This formulais race indifferent and is the recommended formula for GFRby the National Kidney Foundation for Adults.The GFR will not calculate if the sex is unknown or if thepatient's age is <18 years. CREATININE (test code = CREAT) 1.4 mg/dL 0.6-1.3 H CALCIUM (test code = CA) 8.3 mg/dL 8.0-10.5 N CBC W/AUTO [id number] 06:57:00* Test Item Value Reference Range Interpretation Comme nts WHITE BLOOD CELL (test code = WBC) 11.0 x10 3/uL 4.5-11.0 RED BLOOD CELL (test code = RBC) 3.43 x10 6/uL 3.54-5.02 L HEMOGLOBIN (test code = HGB) 10.4 g/dL 11.0-15.0 L HEMATOCRIT (test code = HCT) 31.2 % 33.0-45.0 L MEAN CELL VOLUME (test code = MCV) 91.0 fL 81.0-99.0 N MEAN CELL HGB (test code = MCH) 30.3 pg 27.0-33.0 N MEAN CELL HGB CONCETRATION (test code = MCHC) 33.3 g/dL 33.0-37.0 N RED CELL DISTRIBUTION WIDTH CV (test code = RDW) 14.2 % 11.5-14.5 N RED CELL DISTRIBUTION WIDTH SD (test code = RDW-SD) 47.4 fL 37.0-54.0 N PLATELET COUNT (test code = PLT) 180 x10 3/uL 150-400 N MEAN PLATELET VOLUME (test c ode = MPV) 11.2 fL 7.0-9.0 H NEUTROPHIL % (test code = NT%) 86.4 % 56.0-77.0 H IMMATURE GRANULOCYTE % (test code = IG%) 0.6 % 0.0-2.0 N LYMPHOCYTE % (test code = LY%) 5.9 % 14.0-32.0 L MONOCYTE % (test code = MO%) 7.0 % 4.8-9.0 N EOSINOPHIL % (test code = EO%) 0.0 % 0.3-3.7 L BASOPHIL % (test code = BA%) 0.1 % 0.0-2.0 N NUCLEATED RBC % (test code = NRBC%) 0.0 % 0-0 N NEUTROPHIL # (test code = NT#) 9.46 x10 3/uL 2.0-7.6 H IMMATURE GRANULOCYTE # (test code = IG#) 0.07 x10 3/uL 0.00-0.03 H LYMPHOCYTE # (test code = LY#) 0.65 x10 3/uL 1.0-3.8 L MONOCYTE # (test code = MO#) 0.77 x10 3/uL 0.1-0.8 N EOSINOPHIL # (test code = EO#) 0.00 x10 3/uL 0.0-0.2 N BASOPHIL # (test code = BA#) 0.01 x10 3/uL 0.0-0.2 N NUCLEATED RBC # (test code = NRBC#) 0.00 x10 3/uL 0.0-0.1 N COMPREHENSIVE METABOLIC [id number] 07:25:00* Test Item Value Reference Range Interpretation Comme nts SODIUM (test code = NA) 139 mEq/L 134-147 N POTASSIUM (test code = K) 3.8 mEq/L 3.4-5.0 N CHLORIDE (test code = CL) 106 mEq/L 100-108 N CARBON DIOXIDE (test code = CO2) 24 mEq/l 21-33 N ANION GAP (test code = GAP) 13 0-20 N GLUCOSE (test code = GLU) 123 mg/dL 77-141 N BLOOD UREA NITROGEN (test code = BUN) 29 mg/dL 7-25 H GLOMERULAR FILTRATION RATE (test code = GFR) 52.7 70-80 L The Glomerular Filtration Rate is a calculated parameterbased on serum Creatinine, patient age and sex. GFR valuesless than 60 mL/min/1.73 square meters are indicative ofChronic Kidney Disease. Values less than 15 mL/min/1.73square meters indicate Kidney failure. The calculation forGFR is based on the CKD-EPI (202) calculation. This formulais race indifferent and is the recommended formula for GFRby the National Kidney Foundation for Adults.The GFR will not calculate if the sex is unknown or if thepatient's age is <18 years. CREATININE (test code = CREAT) 1.1 mg/dL 0.6-1.3 N TOTAL PROTEIN (test code = PROT) 6.2 g/dL 6.4-8.2 L ALBUMIN (test code = ALB) 3.20 g/dL 3.4-5.0 L CALCIUM (test code = CA) 9.9 mg/dL 8.0-10.5 N BILIRUBIN TOTAL (test code = BILT) 1.00 mg/dL 0.0-1.0 N SGOT/AST (test code = AST) 47 IUnit/L 8-34 H SGPT/ALT (test code = ALT) 28 IUnit/L 10-49 N ALKALINE PHOSPHATASE TOTAL (test code = ALKP) 158 IUnit/L 20-125 H CBC W/AUTO [id number] 06:14:00* Test Item Value Reference Range Interpretation Comme nts WHITE BLOOD CELL (test code = WBC) 7.6 x10 3/uL 4.5-11.0 N RED BLOOD CELL (test code = RBC) 3.91 x10 6/uL 3.54-5.02 N HEMOGLOBIN (test code = HGB) 11.7 g/dL 11.0-15.0 N HEMATOCRIT (test code = HCT) 34.6 % 33.0-45.0 N MEAN CELL VOLUME (test code = MCV) 88.5 fL 81.0-99.0 N MEAN CELL HGB (test code = MCH) 29.9 pg 27.0-33.0 N MEAN CELL HGB CONCETRATION (test code = MCHC) 33.8 g/dL 33.0-37.0 N RED CELL DISTRIBUTION WIDTH CV (test code = RDW) 14.0 % 11.5-14.5 N RED CELL DISTRIBUTION WIDTH SD (test code = RDW-SD) 44.9 fL 37.0-54.0 N PLATELET COUNT (test code = PLT) 179 x10 3/uL 150-400 N MEAN PLATELET VOLUME (test c ode = MPV) 11.0 fL 7.0-9.0 H NEUTROPHIL % (test code = NT%) 87.1 % 56.0-77.0 H IMMATURE GRANULOCYTE % (test code = IG%) 1.2 % 0.0-2.0 N LYMPHOCYTE % (test code = LY%) 9.6 % 14.0-32.0 L MONOCYTE % (test code = MO%) 1.8 % 4.8-9.0 L EOSINOPHIL % (test code = EO%) 0.0 % 0.3-3.7 L BASOPHIL % (test code = BA%) 0.3 % 0.0-2.0 N NUCLEATED RBC % (test code = NRBC%) 0.0 % 0-0 N NEUTROPHIL # (test code = NT#) 6.64 x10 3/uL 2.0-7.6 N IMMATURE GRANULOCYTE # (test code = IG#) 0.09 x10 3/uL 0.00-0.03 H LYMPHOCYTE # (test code = LY#) 0.73 x10 3/uL 1.0-3.8 L MONOCYTE # (test code = MO#) 0.14 x10 3/uL 0.1-0.8 N EOSINOPHIL # (test code = EO#) 0.00 x10 3/uL 0.0-0.2 N BASOPHIL # (test code = BA#) 0.02 x10 3/uL 0.0-0.2 N NUCLEATED RBC # (test code = NRBC#) 0.00 x10 3/uL 0.0-0.1 N [id number] 14:50:00* Test Item Value Reference Range Interpretation Comme nts CREATININE (test code = CREAT) 1.2 mg/dL 0.6-1.3 N COMMENTS: Stat creatinine if not already performedPTH INTACT [id number] 04:32:00* Test Item Value Reference Range Interpretation Comme nts PARATHYROID HORMONE INTACT ( test code = PARAI) 11.5 pg/mL 14.0-72.0 L PROTHROMBIN [id number] 23:39:00* Test Item Value Reference Range Interpretation Comme nts PROTHROMBIN TIME PATIENT (test code = PTP) 13.3 SECONDS 9.3-12.9 H INTERNATIONAL NORMAL RATIO (test code = INR) 1.2 0.8-1.2 N TARGET INR BY INDICATION Indication INR1. Prophylaxis of venous thrombosis 2.0 - 3.0 (orthopedic surgery), Prophylaxis of venous thrombosis (other than high-risk surgery), Treatment of Deep Vein Thrombosis/Pulmonary Embolism, Prevention of systemic embolism - Tissue heart valves, Acute Myocardial Infarction (to prevent systemic embolism), Valvular heart disease, Atrial Fibrillation, Bileaflet mechanical valve in aortic position.2. Mechanical prosthetic valves (high risk), 2.5 - 3.5 Presence of Lupus Anticoagulant or Antiphospholipid Antibodies, Prevention of systemic embolism - Acute Myocardial Infarction (to prevent recurrent infarct). COMPREHENSIVE METABOLIC [id number] 23:38:00* Test Item Value Reference Range Interpretation Comme nts SODIUM (test code = NA) 139 mEq/L 134-147 N POTASSIUM (test code = K) 3.8 mEq/L 3.4-5.0 N CHLORIDE (test code = CL) 107 mEq/L 100-108 N CARBON DIOXIDE (test code = CO2) 24 mEq/l 21-33 N ANION GAP (test code = GAP) 12 0-20 N GLUCOSE (test code = GLU) 124 mg/dL 77-141 N BLOOD UREA NITROGEN (test code = BUN) 35 mg/dL 7-25 H GLOMERULAR FILTRATION RATE (test code = GFR) 47.5 70-80 L The Glomerular Filtration Rate is a calculated parameterbased on serum Creatinine, patient age and sex. GFR valuesless than 60 mL/min/1.73 square meters are indicative ofChronic Kidney Disease. Values less than 15 mL/min/1.73square meters indicate Kidney failure. The calculation forGFR is based on the CKD-EPI (202) calculation. This formulais race indifferent and is the recommended formula for GFRby the National Kidney Foundation for Adults.The GFR will not calculate if the sex is unknown or if thepatient's age is <18 years. CREATININE (test code = CREAT) 1.2 mg/dL 0.6-1.3 N TOTAL PROTEIN (test code = PROT) 6.5 g/dL 6.4-8.2 N ALBUMIN (test code = ALB) 3.50 g/dL 3.4-5.0 N CALCIUM (test code = CA) 11.0 mg/dL 8.0-10.5 H BILIRUBIN TOTAL (test code = BILT) 1.20 mg/dL 0.0-1.0 H SGOT/AST (test code = AST) 44 IUnit/L 8-34 H SGPT/ALT (test code = ALT) 30 IUnit/L 10-49 N ALKALINE PHOSPHATASE TOTAL (test code = ALKP) 167 IUnit/L 20-125 H CBC W/AUTO [id number] 23:15:00* Test Item Value Reference Range Interpretation Comme nts WHITE BLOOD CELL (test code = WBC) 6.0 x10 3/uL 4.5-11.0 N RED BLOOD CELL (test code = RBC) 3.76 x10 6/uL 3.54-5.02 N HEMOGLOBIN (test code = HGB) 11.3 g/dL 11.0-15.0 N HEMATOCRIT (test code = HCT) 33.3 % 33.0-45.0 N MEAN CELL VOLUME (test code = MCV) 88.6 fL 81.0-99.0 N MEAN CELL HGB (test code = MCH) 30.1 pg 27.0-33.0 N MEAN CELL HGB CONCETRATION (test code = MCHC) 33.9 g/dL 33.0-37.0 N RED CELL DISTRIBUTION WIDTH CV (test code = RDW) 14.0 % 11.5-14.5 N RED CELL DISTRIBUTION WIDTH SD (test code = RDW-SD) 45.4 fL 37.0-54.0 N PLATELET COUNT (test code = PLT) 150 x10 3/uL 150-400 N MEAN PLATELET VOLUME (test c ode = MPV) 10.5 fL 7.0-9.0 H NEUTROPHIL % (test code = NT%) 83.0 % 56.0-77.0 H IMMATURE GRANULOCYTE % (test code = IG%) 0.5 % 0.0-2.0 N LYMPHOCYTE % (test code = LY%) 10.1 % 14.0-32.0 L MONOCYTE % (test code = MO%) 5.8 % 4.8-9.0 N EOSINOPHIL % (test code = EO%) 0.3 % 0.3-3.7 N BASOPHIL % (test code = BA%) 0.3 % 0.0-2.0 N NUCLEATED RBC % (test code = NRBC%) 0.0 % 0-0 N NEUTROPHIL # (test code = NT#) 4.98 x10 3/uL 2.0-7.6 N IMMATURE GRANULOCYTE # (test code = IG#) 0.03 x10 3/uL 0.00-0.03 N LYMPHOCYTE # (test code = LY#) 0.61 x10 3/uL 1.0-3.8 L MONOCYTE # (test code = MO#) 0.35 x10 3/uL 0.1-0.8 N EOSINOPHIL # (test code = EO#) 0.02 x10 3/uL 0.0-0.2 N BASOPHIL # (test code = BA#) 0.02 x10 3/uL 0.0-0.2 N NUCLEATED RBC # (test code = NRBC#) 0.00 x10 3/uL 0.0-0.1 N Notes Date/Time Note Provider Source 2023-12-23 20:46:00 [id number] [facility]/[id number]:00 [facility])Tevin/Oncology Progress NoteREPORT#:[id number] REPORT STATUS: SignedREPORT INITIALIZATION DATE:12/23/23 TIME: 2045 PATIENT: JUSTYNA GAMING UNIT #: [id number]#: [id number] [address] [birth year] AGE: 73 SEX: F ATTEND: Fern Mata MDADM AUTHOR: Leanna Villatoro MDREPT SERVICE DT/TIME: 12/23/232045* ALL edits or amendments must be made on the electronic/computer document * SubjectiveChief Complaint:fu met breast cancer and path hip fracture transferred to rehab.doing ok.RI brain is negative.started on letrozole.path from hip fracture d/w Dr Cordero - notes ER + and consistent with breast primary Objective Physical ExamVS:Vital SignsDate Temp Pulse Resp B/P B/P Mean Pulse Ox RjQ008/03-04/04 36.5-36.9 52-84 16-18 142-169/65-76 92.5-106.4 92-97 Last Documented: Result Date Time Pulse Ox 96 12/22 1921 B/P 142/69 12/22 1921 B/P Mean 93.3 12/22 1921 O2 Delivery Room air 12/22 1921 Temp 36.8 12/22 1921 Pulse 84 12/22 1921 Resp 16 12/22 1921 General appearance: awakeHEENT: pupils reactive to lightCardiovascular: regular rate and rhythm, normal heart soundsRespiratory: aerating well, symmetric expansion, no distressAbdomen: non-tender, soft, no mass/organomegalyExtremities: moves allNeuro/PRODUCT SAFETY LEAD: alert, oriented X 3, no motor deficits, no sensory deficits Current MedicationsMedications:Active Meds + DC'd Last 24 HrsCarvedilol (COREG) 6.25 MG BID PO Amlodipine Besylate (NORVASC) 10 MG BEDTIME PO Tramadol HCl (ULTRAM) 50 MG Q4H PRN PRN PO Alprazolam (XANAX 0.25) 0.5 MG ONCE PRN PO Letrozole (FEMARA) 2.5 MG DAILY PO Losartan Potassium (COZAAR) 50 MG BID PC PO Clonidine HCl (CATAPRES) 0.1 MG BID PRN PRN PO Amlodipine Besylate (NORVASC) 5 MG BEDTIME PO (DC) Hydrochlorothiazide (hydroCHLOROthiazide) 12.5 MG DAILY PO Dexamethasone (DECADRON) 6 MG TID PO Acetaminophen (TYLENOL) 650 MG Q4H PRN PRN PO Albuterol Sulfate (ALBUTEROL SULFATE) 2.5 MG RTQ4H PRN PRN NEB Docusate Sodium (COLACE) 100 MG BID PRN PRN PO Acetaminophen (TYLENOL) 650 MG Q4H PRN PRN PO Enoxaparin Sodium (lovENOX) 30 MG Q12H SUBQ Ondansetron HCl (ZOFRAN ODT) 4 MG Q6H PRN PRN PO Polyethylene Glycol (MIRALAX) 17 GM BID PRN PRN PO Diagnosis, Assessment Plan Free Text DxA P NotesFree Text DxA P Notes:1. Breast cancer 2. Metastatic malignancy likely recurrent breast 3. Spinal stenosis due to metastaic disease 4. pathological hip fracture 5. Hypercalcemia of maligancy PLanrecommend MRI brain if not already doen due to extensive metastatic disease.s/p right hip surgery on 12/14tissue sent for path results pending for confirmation and molecular tumor profilingspoke with DR Hurtado and Dr Worrell and DR Payne to coordinate care. continue dex 4mg q 8 and will slowly taper after competion of xrt.Plan is short course of IP rehab and OP XRT as she does not have any impending neurological dysfunction and insurance not able to provide ambulance rides for XRT.s/p zometa on 12/14 - monitor calciummonitor creatinine.IVF hydraionpending ca - and path 12/19ill awaiting pathwill start letrozole whicle awaiting path from 12/15 based on prior ER positive disease. cotinue rehabneeds MRI brain to complete staging w/ucontinue dex TIDOP XRT planned for spinal epidural mass. 4/2letrozole startedMRI brain negativepath still pending. reached out to pathology today. awaiting on IHC stainscan change dex to 4mg po bid if stable. 4/4continue letrozolemay give 1 month supply at discharge 2.5 mg po daily.ok to dc home when ready from rehab from onc stand point.will start XRT to spine as soon as discharged from hospital.dex decreased to 4 mg po bid x 1 week and then will taper off once started on XRT. pepcid po daily while on dex I spoke with DR Cordero pathologist who notes consistent with ER + breast primary. DR Campos covering me this wekend. please call if questions. at 2050 RPT #:[id number] OF REPORTPRProgress [id number]:46:00G.[id number] for patient aydnXDXWRVOMJSOUTU8530-54-47P84:50:20 [facility] 2023-12-23 15:53:00 [id number] S5WmFlY3wkV5kJCKo n61ChvjhQ3jgPX6awMt7292-84-37X82:53:00 [facility] ([facility])Rehab Progress NoteREPORT#:[id number] REPORT STATUS: SignedREPORT INITIALIZATION DATE:12/23/23 TIME: 1552 PATIENT: JUSTYNA GAMING UNIT #: [id number]#: [id number] [address] [birth year] AGE: 73 SEX: F ATTEND: Fern Mata MDADM AUTHOR: Fern Mata MDREPT SERVICE DT/TIME: 12/23/23 155* ALL edits or amendments must be made on the electronic/computer document * SubjectiveChief complaint:Seen bedside. Doing well from a rehab standpoint. She is due to go home tomorrow. Blood pressure still poorly controlled. Internal medicine has been increasing her medicines. She is maxed out on losartan and Norvasc. She is also on low-dose hydrochlorothiazide. Will start Coreg. Review of SystemsConstitutional:Denies: chills, generalized weakness. Respiratory:Denies: DOBSON (dyspnea on exertion), SOB. Cardiovascular:Denies: chest pain, palpitations. GI:Denies: abdominal pain. :Denies: dysuria. Objective GeneralVS:Vital Signs: Date Time Temp Pulse Resp B/P B/P Pulse O2 O2 Flow FiO2 Mean Ox Delivery Rate 12/22 1525 98.4 62 17 162/65 97.1 96 12/22 0621 97.7 52 18 147/65 92.5 97 12/22 0005 97.9 54 17 147/76 99.7 92 12/21 2145 59 169/75 106.4 96 12/21 2046 98.4 61 18 181/72 108.6 95 PATIENT WEIGHT: Weight (lb): 187Weight (oz): 6.29Weight (kg): 85.000 Medications:Active Meds + DC'd Last 24 HrsCarvedilol (COREG) 6.25 MG BID PO Amlodipine Besylate (NORVASC) 10 MG BEDTIME PO Tramadol HCl (ULTRAM) 50 MG Q4H PRN PRN PO Alprazolam (XANAX 0.25) 0.5 MG ONCE PRN PO Letrozole (FEMARA) 2.5 MG DAILY PO Losartan Potassium (COZAAR) 50 MG BID PC PO Clonidine HCl (CATAPRES) 0.1 MG BID PRN PRN PO Amlodipine Besylate (NORVASC) 5 MG BEDTIME PO (DC) Hydrochlorothiazide (hydroCHLOROthiazide) 12.5 MG DAILY PO Dexamethasone (DECADRON) 6 MG TID PO Acetaminophen (TYLENOL) 650 MG Q4H PRN PRN PO Albuterol Sulfate (ALBUTEROL SULFATE) 2.5 MG RTQ4H PRN PRN NEB Docusate Sodium (COLACE) 100 MG BID PRN PRN PO Acetaminophen (TYLENOL) 650 MG Q4H PRN PRN PO Enoxaparin Sodium (lovENOX) 30 MG Q12H SUBQ Ondansetron HCl (ZOFRAN ODT) 4 MG Q6H PRN PRN PO Polyethylene Glycol (MIRALAX) 17 GM BID PRN PRN PO Functional ProgressFunctional progress:The data set between the solid lines has been imported from multidisciplinary team documentation. FUNCTIONAL ACTIVITY ADMISSION STATUS INTERIM STATUS Toilet hygiene Supervision/touch (4) Supervision/touch (4) Toilet transfer Supervision/touch (4) Supervision/touch (4) Eating Independent (6) Independent (6) Shower/bathing Substantial/max (2) Independent (6) Dressing upper body Partial/moderate (3) Independent (6) Dressing lower body Dependent (1) Independent (6) Transfer to/from bed to chair Supervision/touch (4) Supervision/touch (4) Wheel 50ft w/ 2 turns Supervision/touch (4) Supervision/touch (4) Wheel 150 ft Supervision/touch (4) Supervision/touch (4) Walk 50 ft w/ 2 turns Supervision/touch (4) Supervision/touch (4) Walk 150 ft Not attempted (88) Supervision/touch (4) Four steps Supervision/touch (4) Functional Assessment/ExamExtremities: edema Physical ExamGeneral appearance: alert, awake, orientedHEENT: mucosal membranes moist, pupils reactive to lightNeck: suppleCardiovascular: regular rate rhythmRespiratory: clear bilaterallyAbdomen: obese, soft, non-tenderSkin: incision, (COVERED WITH AQUACEL), dry, intactMusculoskeletal - general: Musculoskeletal - general: normal muscle mass, normal tone, range of motion normalNeuro/PRODUCT SAFETY LEAD: alert, oriented X 3, CNII-XII intact, no motor deficits, no sensory deficits Diagnosis, Assessment PlanProblem List/A P: 1. Cancer of left breast, stage 4 2. HTN (hypertension) 3. Pathologic fracture of neck of right femur Free Text A P:Advanced Care Plan for patients age > 65 *Advanced Care Plan Discussed: [ X]Yes who, living will, POA, and code status FULL[ ] No explain why] *Surrogate Decision Maker: [ ]Yes who [ ] No explain why 73-year-old female with metastatic breast cancer. She has a pathological fracture of the right femoral neck status post right hip hemiarthroplasty for which she is weightbearing as tolerated. She also has some metastatic lesions in the spine not currently causing spinal cord compromise. She is to follow-up with Dr. Worrell in 6 weeks. She has a surgical oncologist that she has been seenat [facility] in [place]. She will need to follow with Dr. Villatoro or another oncologist after discharge. Plan comprehensive rehab with PT and OT. Will manage her pain and follow incision for signs and symptoms of infection drainage or breakdown. Continue DVT prophylaxis. Will handle medical problems as they arise throughout her hospital course 12/19: Hip incision looks good. She has minimal pain. Team conference the day after tomorrow. Will try to discharge her soon as possible if she needs to get on with any treatment for her cancer. Hip incision looks good. Continue rehab.12/20: Pt seen. Making progress with therapy. Pain controlled. MRI of the brain shows skull lesion to the posterior right skull. No intracranial masses. Team Conference tomorrow.12/21: See team conference note. She is 1 week postop. MRI of the head negative thoracic MRI shows metastatic involvement throughout the thoracic spine. We aregoing to try to get her home on Wednesday the . She will need home health, rolling walker, bedside commode, and a tub transfer bench. She will follow-up with Dr. Villatoro of oncology. Continue rehab.12/22: Patient to go home tomorrow. She will follow-up with orthopedics in oncology. She does not have a primary care physician but she knows she has to get 1. Blood pressure poorly controlled we will add Coreg. Prepare discharge for tomorrow. Due to [pathological femur fracture] the patient is confined to a single room inthe home. ORDue to [] the patient is confined to one level of the home and there is not a toilet on that level. ORDue to [] the patient is confined to the home and there are no toilet facilitiesin the home. Due to [pathological femur fracture] patient has a mobility limitation that prevents him/her from performing MRADLS in the home such as [toileting]. The patient requires a walker to safely perform MRADLS in the home and a cane will not resolve the issue. The patients mobility imitations are [pain]. Rehab attestation:Face to face exam completed. Treatment plan discussed with patient. Meets continued stay criteria. Agree with interdisciplinary treatment plan. at 1555 [facility] #:[id number] OF REPORTPRProgress [id number]:53:00G.[id number] for patient zzmvFXFDTIXZDYFIDB6575-12-47L68:55:46 [facility] 2023-12-22 21:21:00 [id number] /gFzfxRLnksT5y8cx 7WI9C4iswqe24pbWV3E3187-78-52J27:21:00 [facility])Hospitalist Progress NoteREPORT#:[id number] REPORT STATUS: SignedREPORT INITIALIZATION DATE:12/22/23 TIME: 2120 PATIENT: JUSTYNA GAMING UNIT #: [id number]#: [id number] ROOM[facility]BED: [facility]DOB: [birth year] AGE: 73 SEX: F ATTEND: Fern Mata MDADM AUTHOR: Alex Grove MDREPT SERVICE DT/TIME: 12/22/232120* ALL edits or amendments must be made on the electronic/computer document * SubjectiveChief complaint:Patient feeling well today.HPI:3 WF WITH HTN, BREAST CANCER, S/P CHEMO/XRT IN 2013, NOW ADMITTED FOR RIGHT HIP PAIN, FOUND TO HAVE PATHOLOGIC FRACTURE, AND NEW DIFFUSE VERTEBRAL METS WITH EPIDURAL MASS AND PARTIAL CORD COMPRESSION. SEEN ORTHO/ONC/NS/REHAB, AND PLAN FOR IRF COURSE AND XRT DURING IRF, AND OUTPATIENT CHEMO. Orthopedics consulted, patient taken to the OR for right hemiarthroplasty on 12/15/2023. PMR was consulted and patient was transferred to rehab unit for inpatient rehab. Objective GeneralVS/I O:Vital Signs: Date Time Temp Pulse Resp B/P B/P Pulse O2 O2 Flow FiO2 Mean Ox Delivery Rate 12/21 2045 98.4 61 18 181/72 108.6 95 12/21 1539 97.7 57 16 150/69 96.4 96 Room air 12/21 1213 64 15 136/61 86.1 97 12/21 0617 97.7 56 15 161/78 105.3 96 Room air 12/20 2329 97.5 58 18 148/70 96.1 94 Room air 24 hour I O ending at 0700: 12/21 0700 12/20 1900 Intake Total 240 1130 Output Total Balance 240 1130 Intake, Oral 240 1130 Number 0 Bowel Movements Number 0 0 Incontinent Voids Number Voids 1 2 PATIENT WEIGHT: Weight (lb): 187Weight (oz): 6.29Weight (kg): 85.000 Free Text Obj NotesFree Text Obj Notes:General appearance: chronically ill appearing, obese, alert, awakeHead/Eyes: Atraumatic, normocephalicNeck: no JVDCardiovascular: normal heart sounds, regular rate rhythmRespiratory: aerating well, clear to auscultation, symmetric expansionAbdomen: obese, non-tender, normal bowel sounds, softExtremities: TRACE PRETIBIAL EDEMAMusculoskeletal: decreased ROMNeuro/PRODUCT SAFETY LEAD: alert, oriented X 3Skin: normal colorPsychiatry: normal affect Diagnosis, Assessment Plan Free Text DxA P NotesFree text DxA P notes:Right femoral PATHOLOGIC Fracture/Right hip fracture, S/P HEMIARTHROPLASTY -- ORTHO SEEN -12/15: transferred to inpatient rehab unit MET VERTEBRAL METS/Multiple lytic bone lesions/PARTIAL CORD COMPRESSION DUE TO EPIDURAL MASS - NS/ONC SEEN, PLAN FOR XRT I/P WHILE IN REHAB-Dexamethasone 6 mg 3 times daily Hypercalcemia OF MALIGNANCY - RESOLVED WITH ZOMETA X1 AND IVF BY ONC Hypertension -Likely exacerbated by steroids, consider weaning down when no longer needed-Continue home hydrochlorothiazide-Losartan increased to 50 mg twice daily Amlodipine 5 mg at bedtime-Clonidine 0.1 mg twice daily as needed for systolic blood pressure greater [id number] Asthma/pneumonia - DONE WITH ABX History of breast cancer WITN BONY METS - NEEDS O/P CHEMO BY ONC Constipation aggressive bowel regimen DVT PX - LOVENOX 30 BID PlansReviewed imaging reports, concerning for metastatic processOrthopedic consulted in the ERConsider oncology consult in the morningAnalgesia as toleratedIv zithromaxDuoneb breathing treatment q4h prnSupp O2 as neededIV fluid, monitor serum calcium. IV prn hydralazine for elevated blood pressure Further care per clinical courseCODE STATUS: full code. 12/14- s/p right hip arthroplasty for pathologic hip fracture. Multiple mets of the spine. XRT plans on going emergency radiation treatment ROSA while in the hospital for 5 treatments. 12/17 -losartan increased to 25 mg twice daily. Add amlodipine 5 mg at bedtime for hypertension. 12/18-blood pressure still elevated 170 systolic, increase losartan to 50 mg twice daily. 12/19-blood pressure is elevated 160s this morning, will need to recheck this afternoon and adjust medication accordingly 12/21 BP still elevated, Will adjust medication. at 2122 RPT #:[id number] OF REPORTPRProgress [id number]:21:00G.[id number] for patient whzvVXCWSFYQHSEMXE6560-14-99U21:27:33 [facility] 2023-12-22 14:40:00 [id number]/UL67s JwCd7F5g+0auTECUI pjskKV34nzWEQRXc/UU6024-62-61E20:40:00 [facility] ([facility])Rehab Team ConferenceREPORT#:[id number] REPORT STATUS: SignedREPORT INITIALIZATION DATE:12/22/23 TIME: 144 PATIENT: JUSTYNA GAMING UNIT #: [id number]#: [id number] [address] [birth year] AGE: 73 SEX: F ATTEND: Fern Mata MDADM AUTHOR: Fern Mata MDREPT SERVICE DT/TIME: 12/22/23 1440* ALL edits or amendments must be made on the electronic/computer document * Rehabilitation Team Conference Weekly Team ConferenceTeam conf information:Date of conference: 12/22/23Conference type: InitialConference scribe: Donna Tolbert PTA INTERDISCIPLINARY TEAM MEETING PARTICIPANTS: TITLE NAME MD ELZA Vanegas, ELZA Copeland, PT SHERRI Hopkins OT CM/SHANE Saba NO ATTENDEE [facility] Marina Clark, ARMINDA Staff (8) SNEHAL Motley Staff (9) NO ATTENDEE OTHER NAME CREDENTIALS 1 2 FUNCTIONAL CHANGE: TYPE ADMISSION TOTAL INTERIM TOTAL CHANGE Self care 19 31 12 Transfer 19 24 5 Mobility 14 26 12 Wheelchair distance: Mobility description: BOWEL AND BLADDER STATUS: Bowel continence admission rating: Bladder continence admission rating: Bowel and bladder team conference update: Pt is continent of bowel and bladder. LBM 12/19/23. INTERDISCIPLINARY TEAM UPDATES: OWEN team conference update: Pt is alert and oriented x 4, able to make needs known to staff. Appetite is fair to good, sleeps well through the night. Pt transfers with stand by assist to walker. Pain controlled by PRN Tramadol and PRN APAP.PT team conference update: PROGRESS; GOOD, TRANSFERS SBA. GAIT 200' W/ RW AND SBA. AMB UP/DOWN 8 STEPS W/ RAILS AND SBA/CUES. OT team conference update: PROGRESS- GOOD, LIMITED BY HIP PRECAUTIONS, PAIN, ANDLOW ENDURANCE ADLS ARE INDEPENDENT TO MOD A HHOTST team conference update: CM or SW team conference update: PATIENT LIVES AT HOME ALONE IN AN APARTMENT IN [place]. SHE WOULD LIKE TO MOVE TO THE FIRST FLOOR THE ELEVATOR IS FREQUENTLY OUT. SHE HAS AN ADULT DAUGHTER WHO PROVIDES COMMUNITY SUPPORT.Other discipline update 1: P.O INTAKE: 75% OF A REGULAR DIET WITH ENSURE MAX HP BID.Other discipline update 2: Other discipline update 3: REHAB DC GOALS: Patient's identified discharge goal: I WOULD LIKE TO BE ABLE TO DRESS MYSELF . PT: BE ABLE TO GET UP A FEW STEPS, GET IN/OUT OF BED ON OWN Eating discharge goal: Independent (6) Shower/bathe self discharge goal: Independent (6) Upper body dressing discharge goal: Independent (6) Lower body dressing discharge goal: Independent (6) Chair/bed to chair transfer discharge goal: Independent (6) Transfer on/off toilet or commode discharge goal: Independent (6) Walking 50 feet with two turns discharge goal: Independent (6) Walking 150 feet discharge goal: Independent (6) Four steps discharge goal: Independent (6) Twelve steps discharge goal: Partial/moderate asst (3) Harman 150 feet discharge goal: Independent (6) Goal 1 - Bowel function: NO INCONTINENT EPISODES WHILE ON REAHB UNITGoal 2 - Bladder function: NO INCONTINENT EPISODES WHILE ON REHAB UNITNursing goal 3: NO FALLS WHILE ON REHAB UNITNursing goal 4: NO PRESSURE ULCERS DEVELOPMENT WHILE REAHB UNITNursing goal 5: PAIN 0/10 WITH CURRENT PAIN MEDS. DISCHARGE PLANNING: Barriers to discharge: Endurance, Fall risk, Caregiver, PAIN, IMPAIRED SELF CARESKILLSStrategies for D/C barriers: Fall recovery training, Home evaluation, Evaluate pain control, ADL RETRAININGEstimated length of stay in days: 14Anticipated discharge date: 12/24/23Discharge date adjustment comment: Identified financial and/or community resource needs: Family/Caregiver training days: PATIENT AND FAMILY WILL BE EDUCATD ON USE OF GAIT BELT TO LOWER PT TO THE FLOOR IN THE EVENT OF LOSS OF BALANCE TO PREVENT FALL EMMY NJURY. FAMILY TRAININGSCHEDULED FOR 12/24/23Independence day (DATE): 12/23/23Expected discharge destination: HomeAnticipated services upon discharge: Home health, Occupational therapy, Physicaltherapy, NursingAnticipated discharge equipment: Tub bench, Bedside commode, RW Impairment group: orthopedic disorders NOTE Document ONLY ONE Impairment Group Orthopedic disorders: unilateral hip fractureEtiologic diagnosis:Pathological right femoral neck fractureReview of comorbidities:Hypertension, metastatic breast cancer Review/RecommendationsAttestation:This interdisciplinary team conference was led by me and I concur with all decisions made during the team conference and revisions to the individualized overall plan of care. IRF cont stay criteriaD/C HOME 12/23 at 1441 RPT #:[id number] OF REPORTCLClinical [id number]:40:00G.[id number] for patient drdxFBRYNWGUYBKJLB4664-93-68D29:41:29 [facility] 2023-12-22 13:23:00 [id number]+[id number] Qc+Tislm1kGe2FmnG XCOOWltotsAeZUdDQEx3760-01-63Q24:23:00 [facility] ([facility])Rehab Progress NoteREPORT#:[id number] REPORT STATUS: SignedREPORT INITIALIZATION DATE:12/22/23 TIME: 1322 PATIENT: JUSTYNA GAMING UNIT #: [id number]#: [id number] [facility]OM[facility]BED[facility]DOB: [birth year] AGE: 73 SEX: F ATTEND: Fern Mata MDADM AUTHOR: Fern Mata MDREPT SERVICE DT/TIME: 12/22/23 1323* ALL edits or amendments must be made on the electronic/computer document * SubjectiveChief complaint:Staffed in IDT meeting. Seen bedside. Doing fairly well. MRI of the head and T-spine noted. Review of SystemsConstitutional:Denies: chills, generalized weakness. Respiratory:Denies: SOB. Cardiovascular:Denies: chest pain, palpitations. GI:Denies: abdominal pain. :Denies: dysuria. Objective GeneralVS:Vital Signs: Date Time Temp Pulse Resp B/P B/P Pulse O2 O2 Flow FiO2 Mean Ox Delivery Rate 12/21 1213 64 15 136/61 86.1 97 12/21 0617 97.7 56 15 161/78 105.3 96 Room air 12/20 2329 97.5 58 18 148/70 96.1 94 Room air 12/20 1907 98.1 53 17 154/90 111.3 96 Room air / 1600 98.1 59 16 151/70 97.4 96 Room air PATIENT WEIGHT: Weight (lb): 187Weight (oz): 6.29Weight (kg): 85.000 Medications:Active Meds + DC'd Last 24 HrsTramadol HCl (ULTRAM) 50 MG Q4H PRN PRN PO (UNV) Alprazolam (XANAX 0.25) 0.5 MG ONCE PRN PO Letrozole (FEMARA) 2.5 MG DAILY PO Losartan Potassium (COZAAR) 50 MG BID PC PO Clonidine HCl (CATAPRES) 0.1 MG BID PRN PRN PO Amlodipine Besylate (NORVASC) 5 MG BEDTIME PO Hydrochlorothiazide (hydroCHLOROthiazide) 12.5 MG DAILY PO Dexamethasone (DECADRON) 6 MG TID PO Acetaminophen (TYLENOL) 650 MG Q4H PRN PRN PO Albuterol Sulfate (ALBUTEROL SULFATE) 2.5 MG RTQ4H PRN PRN NEB Docusate Sodium (COLACE) 100 MG BID PRN PRN PO Acetaminophen (TYLENOL) 650 MG Q4H PRN PRN PO Enoxaparin Sodium (lovENOX) 30 MG Q12H SUBQ Ondansetron HCl (ZOFRAN ODT) 4 MG Q6H PRN PRN PO Polyethylene Glycol (MIRALAX) 17 GM BID PRN PRN PO Functional ProgressFunctional progress:The data set between the solid lines has been imported from multidisciplinary team documentation. FUNCTIONAL ACTIVITY ADMISSION STATUS INTERIM STATUS Toilet hygiene Supervision/touch (4) Partial/moderate (3) Toilet transfer Supervision/touch (4) Partial/moderate (3) Eating Independent (6) Independent (6) Shower/bathing Substantial/max (2) Supervision/touch (4) Dressing upper body Partial/moderate (3) Setup or cleanup (5) Dressing lower body Dependent (1) Supervision/touch (4) Transfer to/from bed to chair Supervision/touch (4) Supervision/touch (4) Wheel 50ft w/ 2 turns Supervision/touch (4) Supervision/touch (4) Wheel 150 ft Supervision/touch (4) Supervision/touch (4) Walk 50 ft w/ 2 turns Supervision/touch (4) Supervision/touch (4) Walk 150 ft Not attempted (88) Supervision/touch (4) Four steps Supervision/touch (4) Physical ExamGeneral appearance: alert, awake, orientedHEENT: mucosal membranes moist, pupils reactive to lightNeck: suppleCardiovascular: regular rate rhythmRespiratory: clear bilaterallyAbdomen: obese, soft, non-tenderSkin: incision, (COVERED WITH AQUACEL), dry, intactMusculoskeletal - general: Musculoskeletal - general: normal muscle mass, normal tone, range of motion normalNeuro/PRODUCT SAFETY LEAD: alert, oriented X 3, CNII-XII intact, no motor deficits, no sensory deficits ResultsRadiology data:MRI of the thoracic spine and shows extensive metastatic involvement seen throughout the thoracic spine. There is significant epidural component at T8 seen left ventral to the thecal sac and left laterally with perhaps minimal cordcompression and there is a left paracentral ventral epidural component identified at T7 without definite cord compression. Multilevel spondylosis alsoseen resulting in compromise of the canal at T9-T11. Diagnosis, Assessment PlanProblem List/A P: 1. Cancer of left breast, stage 4 2. HTN (hypertension) 3. Pathologic fracture of neck of right femur Free Text A P:Advanced Care Plan for patients age > 65 *Advanced Care Plan Discussed: [ X]Yes who, living will, POA, and code status FULL[ ] No explain why] *Surrogate Decision Maker: [ ]Yes who [ ] No explain why 73-year-old female with metastatic breast cancer. She has a pathological fracture of the right femoral neck status post right hip hemiarthroplasty for which she is weightbearing as tolerated. She also has some metastatic lesions in the spine not currently causing spinal cord compromise. She is to follow-up with Dr. Worrell in 6 weeks. She has a surgical onc[facility] that [facility] been seen[facility] in [place]. She will need to follow with Dr. Villatoro or another oncologist after discharge. Plan comprehensive rehab with PT and OT. Will manage her pain and follow incision for signs and symptoms of infection drainage or breakdown. Continue DVT prophylaxis. Will handle medical problems as they arise throughout her hospital course 12/19: Hip incision looks good. She has minimal pain. Team conference the day after tomorrow. Will try to discharge her soon as possible if she needs to get on with any treatment for her cancer. Hip incision looks good. Continue rehab.12/20: Pt seen. Making progress with therapy. Pain controlled. MRI of the brain shows skull lesion to the posterior right skull. No intracranial masses. Team Conference tomorrow.12/21: See team conference note. She is 1 week postop. MRI of the head negative thoracic MRI shows metastatic involvement throughout the thoracic spine. We aregoing to try to get her home on Wednesday the . She will need home health, rolling walker, bedside commode, and a tub transfer bench. She will follow-up with Dr. Villatoro of oncology. Continue rehab. Due to [pathological femur fracture] the patient is confined to a single room inthe home. ORDue to [] the patient is confined to one level of the home and there is not a toilet on that level. ORDue to [] the patient is confined to the home and there are no toilet facilitiesin the home. Due to [pathological femur fracture] patient has a mobility limitation that prevents him/her from performing MRADLS in the home such as [toileting]. The patient requires a walker to safely perform MRADLS in the home and a cane will not resolve the issue. The patients mobility imitations are [pain]. Rehab attestation:Face to face exam completed. Treatment plan discussed with patient. Meets continued stay criteria. Agree with interdisciplinary treatment plan. at 1636 RPT #:[id number] OF REPORTPRProgress [id number]:23:00G.[id number] for patient jofcROCPTERPIXQRRE9484-11-04B85:37:02 [facility] 2023-12-21 18:35:00 [id number] V/FY5KUZVAax6azA9 n0HXY3I9eIVczyWYX7x0136-71-44P04:35:00 [facility] Progress NoteREPORT#:[id number] REPORT STATUS: SignedREPORT INITIALIZATION DATE:12/21/23 TIME: 1834 PATIENT: JUSTYNA GAMING UNIT #: [id number]#: [id number] [address] [birth year] AGE: 73 SEX: F ATTEND: Fern Mata AUTHOR: Leanna Villatoro MDREPT SERVICE DT/TIME: 12/21/231834* ALL edits or amendments must be made on the electronic/computer document * SubjectiveChief Complaint:fu met breast cancer and path hip fracture transferred to rehab.doing ok.RI brain is negative.started on letrozole.path from hip fracture still pending. Objective Physical ExamVS:Vital Signs Date Temp Pulse Resp B/P B/P Mean Pulse Ox FiO2 04/01-/ 36.7 59-62 15-17 151-159/65-74 96.6-101.6 94-97 Last Documented: Result Date Time Pulse Ox 96 04/ 1600 B/P 151/70 04/ 1600 B/P Mean 97.4 / 1600 O2 Delivery Room air 12/21 1599 Temp 36.7 12/20 1600 Pulse 59 12/20 1600 Resp 16 12/20 1600 General appearance: awakeHEENT: pupils reactive to lightCardiovascular: regular rate and rhythm, normal heart soundsRespiratory: aerating well, symmetric expansion, no distressAbdomen: non-tender, soft, no mass/organomegalyExtremities: moves allNeuro/PRODUCT SAFETY LEAD: alert, oriented X 3, no motor deficits, no sensory deficits Current MedicationsMedications:Active Meds + DC'd Last 24 HrsGadoterate Meglumine (DOTAREM) 17 ML ONCE PRN IV (DC) Alprazolam (XANAX 0.25) 0.5 MG ONCE PRN PO Letrozole (FEMARA) 2.5 MG DAILY PO Losartan Potassium (COZAAR) 50 MG BID PC PO Clonidine HCl (CATAPRES) 0.1 MG BID PRN PRN PO Amlodipine Besylate (NORVASC) 5 MG BEDTIME PO Hydrochlorothiazide (hydroCHLOROthiazide) 12.5 MG DAILY PO Bisacodyl (DULCOLAX) 10 MG BEDTIME PO (DC) Polyethylene Glycol (MIRALAX) 17 GM BID PO (DC) Dexamethasone (DECADRON) 6 MG TID PO Acetaminophen (TYLENOL) 650 MG Q4H PRN PRN PO Albuterol Sulfate (ALBUTEROL SULFATE) 2.5 MG RTQ4H PRN PRN NEB Docusate Sodium (COLACE) 100 MG BID PRN PRN PO Hydrocodone Bitart/Acetaminophen (NORCO 5/325) 1 TAB Q4H PRN PRN PO (DC) Tramadol HCl (ULTRAM) 50 MG Q4H PRN PRN PO (DC) Acetaminophen (TYLENOL) 650 MG Q4H PRN PRN PO Enoxaparin Sodium (lovENOX) 30 MG Q12H SUBQ Ondansetron HCl (ZOFRAN ODT) 4 MG Q6H PRN PRN PO Polyethylene Glycol (MIRALAX) 17 GM BID PRN PRN PO ResultsFindings/Data:Laboratory Tests 12/21/23 0511:[Embedded Image Not Available]Laboratory Tests 12/20 510 Chemistry Sodium (134 - 147 mEq/L) 133 L Potassium (3.4 - 5.0 mEq/L) 3.9 Chloride (100 - 108 mEq/L) 100 Carbon Dioxide (21 - 33 mEq/l) 26 Anion Gap (0 - 20) 11 BUN (7 - 25 mg/dL) 41 H Creatinine (0.6 - 1.3 mg/dL) 1.0 Glomerular Filtr Rate (70 - 80) 59.1 L Glucose (77 - 141 mg/dL) 129 Calcium (8.0 - 10.5 mg/dL) 7.6 L Total Bilirubin (0.0 - 1.0 mg/dL) 1.10 H AST (8 - 34 IUnit/L) 68 H ALT (10 - 49 IUnit/L) 80 H Total Alk Phosphatase (20 - 125 IUnit/L) 157 H Total Protein (6.4 - 8.2 g/dL) 5.8 L Albumin (3.4 - 5.0 g/dL) 3.00 L Laboratory Tests 12/20 510 Hematology WBC (4.5 - 11.0 x10 3/uL) 10.9 RBC (3.54 - 5.02 x10 6/uL) 3.78 Hgb (11.0 - 15.0 g/dL) 11.5 Hct (33.0 - 45.0 %) 33.9 MCV (81.0 - 99.0 fL) 89.7 MCH (27.0 - 33.0 pg) 30.4 MCHC (33.0 - 37.0 g/dL) 33.9 RDW (11.5 - 14.5 %) 14.3 Plt Count (150 - 400 x10 3/uL) 245 MPV (7.0 - 9.0 fL) 11.3 H Neut % (Auto) (56.0 - 77.0 %) 84.6 H Lymph % (Auto) (14.0 - 32.0 %) 8.0 L Barrow % (Auto) (4.8 - 9.0 %) 4.3 L Eos % (Auto) (0.3 - 3.7 %) 0.0 L Baso % (Auto) (0.0 - 2.0 %) 0.3 Neut # (Auto) (2.0 - 7.6 x10 3/uL) 9.20 H Lymph # (Auto) (1.0 - 3.8 x10 3/uL) 0.87 L Barrow # (Auto) (0.1 - 0.8 x10 3/uL) 0.47 Eos # (Auto) (0.0 - 0.2 x10 3/uL) 0.00 Baso # (Auto) (0.0 - 0.2 x10 3/uL) 0.03 Abs Immat Gran (auto) (0.00 - 0.03 x10 3/uL) 0.31 H Immature Gran % (0.0 - 2.0 %) 2.8 H Nucleated RBC % (0 - 0 %) 0.0 Nucleated RBCs # (Man) (0.0 - 0.1 x10 3/uL) 0.00 Radiology data:Recent Impressions:MAGNETIC RESONANCE IMAGING - MRI BRAIN WO/W CONT 12/20 1217 Report Impression - Status: SIGNED Entered: 12/21/2023 1307 IMPRESSION: 1. Unremarkable brain.2. Abnormal enhancement at the high right posterior skull is notedconcerning for metastatic diseaseImpression By: StephanieRRNavjot Duque M.D. Diagnosis, Assessment Plan Free Text DxA P NotesFree Text DxA P Notes:1. Breast cancer 2. Metastatic malignancy likely recurrent breast 3. Spinal stenosis due to metastaic disease 4. pathological hip fracture 5. Hypercalcemia of maligancy PLanrecommend MRI brain if not already doen due to extensive metastatic disease.s/p right hip surgery on 12/14tissue sent for path results pending for confirmation and molecular tumor profilingspoke with DR Hurtado and Dr Worrell and DR Payne to coordinate care. continue dex 4mg q 8 and will slowly taper after competion of xrt.Plan is short course of IP rehab and OP XRT as she does not have any impending neurological dysfunction and insurance not able to provide ambulance rides for XRT.s/p zometa on 12/14 - monitor calciummonitor creatinine.IVF hydraionpending ca - and path 4/1still awaiting pathwill start letrozole whicle awaiting path from 12/15 based on prior ER positive disease. cotinue rehabneeds MRI brain to complete staging w/ucontinue dex TIDOP XRT planned for spinal epidural mass. 4/2letrozole startedMRI brain negativepath still pending. reached out to pathology today. awaiting on IHC stainscan change dex to 4mg po bid if stable. at 1837 RPT #:[id number] OF REPORTPRProgress [id number]:35:00G.[id number] for patient twiqVHLPXOTJVNDMGC2477-92-66T57:37:57 [facility] 2023-12-21 13:03:00 [id number] xDWGIcscRNroKmOF5 stS+eJA+L5mqz+KnSp04985-93-04G97:03:00 [facility] ([facility])Rehab Progress NoteREPORT#:[id number] REPORT STATUS: SignedREPORT INITIALIZATION DATE:12/21/23 TIME: 1302 PATIENT: JUSTYNA GAMING UNIT #: [id number]#: [id number] [address] [birth year] AGE: 73 SEX: F ATTEND: Fern Mata [facility] AUTHOR: Haylee Hamilton-CREPT SERVICE DT/TIME: 12/21/23 1303* ALL edits or amendments must be made on the electronic/computer document * SubjectiveChief complaint:Pt seen and examined. No acute distress. SHe is seen in the bedside chair eatinglunch after coming back from a MRI. Objective GeneralVS:Vital Signs: Date Time Temp Pulse Resp B/P B/P Pulse O2 O2 Flow FiO2 Mean Ox Delivery Rate 12/20 0601 98.1 62 15 159/65 96.6 97 Room air 12/19 2318 61 17 156/74 101.6 94 Room air 12/19 1825 98.2 64 17 162/70 100.5 95 Room air 12/19 1610 98.4 56 16 145/69 94.2 94 PATIENT WEIGHT: Weight (lb): 187Weight (oz): 6.29Weight (kg): 85.000 Medications:Active Meds + DC'd Last 24 HrsGadoterate Meglumine (DOTAREM) 17 ML ONCE PRN IV (DC) Alprazolam (XANAX 0.25) 0.5 MG ONCE PRN PO Letrozole (FEMARA) 2.5 MG DAILY PO Losartan Potassium (COZAAR) 50 MG BID PC PO Clonidine HCl (CATAPRES) 0.1 MG BID PRN PRN PO Amlodipine Besylate (NORVASC) 5 MG BEDTIME PO Hydrochlorothiazide (hydroCHLOROthiazide) 12.5 MG DAILY PO Bisacodyl (DULCOLAX) 10 MG BEDTIME PO (DC) Polyethylene Glycol (MIRALAX) 17 GM BID PO (DC) Dexamethasone (DECADRON) 6 MG TID PO Acetaminophen (TYLENOL) 650 MG Q4H PRN PRN PO Albuterol Sulfate (ALBUTEROL SULFATE) 2.5 MG RTQ4H PRN PRN NEB Docusate Sodium (COLACE) 100 MG BID PRN PRN PO Hydrocodone Bitart/Acetaminophen (NORCO 5/325) 1 TAB Q4H PRN PRN PO Tramadol HCl (ULTRAM) 50 MG Q4H PRN PRN PO Acetaminophen (TYLENOL) 650 MG Q4H PRN PRN PO Enoxaparin Sodium (lovENOX) 30 MG Q12H SUBQ Ondansetron HCl (ZOFRAN ODT) 4 MG Q6H PRN PRN PO Polyethylene Glycol (MIRALAX) 17 GM BID PRN PRN PO Functional ProgressFunctional progress:The data set between the solid lines has been imported from multidisciplinary team documentation. FUNCTIONAL ACTIVITY ADMISSION STATUS INTERIM STATUS Toilet hygiene Supervision/touch (4) Partial/moderate (3) Toilet transfer Supervision/touch (4) Supervision/touch (4) Eating Independent (6) Independent (6) Shower/bathing Substantial/max (2) Supervision/touch (4) Dressing upper body Partial/moderate (3) Setup or cleanup (5) Dressing lower body Dependent (1) Supervision/touch (4) Transfer to/from bed to chair Supervision/touch (4) Supervision/touch (4) Wheel 50ft w/ 2 turns Supervision/touch (4) Supervision/touch (4) Wheel 150 ft Supervision/touch (4) Supervision/touch (4) Walk 50 ft w/ 2 turns Supervision/touch (4) Supervision/touch (4) Walk 150 ft Not attempted (88) Supervision/touch (4) Four steps - - PT DAILY NOTE - - PT daily note comment: S: PT SITTING IN W/C UPON ARRIVAL AND AGREEABLE TO 30 MIN PT TX SESSION. O: PT WAS EDUCATED ON SAFETY AWARENESS, HIP PRECAUTIONS, FALL PRECAUTION AND ENERGY CONSERVATION SKILLS. PT DEMO SIT TO STAND X SUP. PT AMB 180 FT USING RW X SUP WITH ANTALGIC GAIT PATTERN NOTED ON R LE, VAULTING NOTED A FEW TIMES. PT COMPLETED SEATED AROM ON L LE, AAROM ON R LE IN ALL PLANES. PT C/O PAIN ON R HIP PS 3/10. ASSISTED PT BACK TO ROOM AND LEFT PT SITTING IN W/C WITH ALL NEEDS MET AND WITHIN REACH. RN HAWA WAS MADE AWARE AND NOTIFIED. A: PT TOLERATED TX WELL. PT INSTRUCTED TO UTILIZEREST BREAKS AND PACING DURING ACTIVITIES TO INCREASE ENERGY CONSERVATION. P: CONTINUE POC. - - OT DAILY NOTE - - Range of motion and strength: BUE STRENGTHENING WITH 3 # DOWEL 10 X 20 YELLOW T-BAND 10 X 12 Transfers: SUPERVISION W/ TOILET TRANSFERS AND SHOWER TRANSFERS USING GRAB BAR ONTO SHOWER BENCH. Activities of daily living: COMPLETED FULL SHOWER INCLUDING SHAMPOO. PATIENTREPORTED FEELING BETTER. SHE WAS ABLE TO USE LONG HANDLE SPONGE AND WASH HER LOWER LEGS. PLEASE SEE ICT FOR UPDATED ADL LEVELS. Cognition: REPORTED HAVING PAIN OF 2/10 IN THE HIP. OT daily note comment: PATIENT WAS SEEN FOR 90 MINUTES OF SKILLED OT WITH FOCUS ON ADL RETRAINING, TRANSFER TRAINING, AND BUE STRENGTHENING. PATIENT IMPROVED ON ADLS WITH USE OF ADAPTIVE EQUIPMENT AND WAS ABLE TO OBSERVE HIP PRECAUTIONS. PATIENT HADAM TX FOR PRE BUE IN THE GYM. SHE HAD A SHOWER IN THE PM. SHE REMAINED SEATED IN W/C AFTER TX. CALL LIGHT WITHIN REACH. SHE WAS INSTRUCTED TO CALL FOR ASSIST W/ ALL TRANSFERS. PATIENT VERBALIZED UNDERSTANDING. Physical ExamGeneral appearance: , alert, awakeHEENT: mucosal membranes moist, pupils reactive to lightNeck: suppleCardiovascular: regular rate rhythmRespiratory: clear bilaterallyAbdomen: obese, soft, non-tenderSkin: incision, (COVERED WITH AQUACEL), dry, intactMusculoskeletal - general: Musculoskeletal - general: normal muscle mass, normal tone, range of motion normalNeuro/PRODUCT SAFETY LEAD: alert, oriented X 3, CNII-XII intact, no motor deficits, no sensory deficits ResultsFindings/Data:Laboratory Tests: 12/20 0511 Chemistry Sodium (134 - 147 mEq/L) 133 L Potassium (3.4 - 5.0 mEq/L) 3.9 Chloride (100 - 108 mEq/L) 100 Carbon Dioxide (21 - 33 mEq/l) 26 Anion Gap (0 - 20) 11 BUN (7 - 25 mg/dL) 41 H Creatinine (0.6 - 1.3 mg/dL) 1.0 Glomerular Filtr Rate (70 - 80) 59.1 L Glucose (77 - 141 mg/dL) 129 Calcium (8.0 - 10.5 mg/dL) 7.6 L Total Bilirubin (0.0 - 1.0 mg/dL) 1.10 H AST (8 - 34 IUnit/L) 68 H ALT (10 - 49 IUnit/L) 80 H Total Alk Phosphatase (20 - 125 IUnit/L) 157 H Total Protein (6.4 - 8.2 g/dL) 5.8 L Albumin (3.4 - 5.0 g/dL) 3.00 L Hematology WBC (4.5 - 11.0 x10 3/uL) 10.9 RBC (3.54 - 5.02 x10 6/uL) 3.78 Hgb (11.0 - 15.0 g/dL) 11.5 Hct (33.0 - 45.0 %) 33.9 MCV (81.0 - 99.0 fL) 89.7 MCH (27.0 - 33.0 pg) 30.4 MCHC (33.0 - 37.0 g/dL) 33.9 RDW (11.5 - 14.5 %) 14.3 Plt Count (150 - 400 x10 3/uL) 245 MPV (7.0 - 9.0 fL) 11.3 H Neut % (Auto) (56.0 - 77.0 %) 84.6 H Lymph % (Auto) (14.0 - 32.0 %) 8.0 L Barrow % (Auto) (4.8 - 9.0 %) 4.3 L Eos % (Auto) (0.3 - 3.7 %) 0.0 L Baso % (Auto) (0.0 - 2.0 %) 0.3 Neut # (Auto) (2.0 - 7.6 x10 3/uL) 9.20 H Lymph # (Auto) (1.0 - 3.8 x10 3/uL) 0.87 L Barrow # (Auto) (0.1 - 0.8 x10 3/uL) 0.47 Eos # (Auto) (0.0 - 0.2 x10 3/uL) 0.00 Baso # (Auto) (0.0 - 0.2 x10 3/uL) 0.03 Abs Immat Gran (auto) (0.00 - 0.03 x10 3/uL) 0.31 H Immature Gran % (0.0 - 2.0 %) 2.8 H Nucleated RBC % (0 - 0 %) 0.0 Nucleated RBCs # (Man) (0.0 - 0.1 x10 3/uL) 0.00 Radiology data:Recent Impressions:MAGNETIC RESONANCE IMAGING - MRI BRAIN WO/W CONT 12/20 1217 Report Impression - Status: SIGNED Entered: 12/21/2023 1307 IMPRESSION: 1. Unremarkable brain.2. Abnormal enhancement at the high right posterior skull is notedconcerning for metastatic diseaseImpression By: StephanieRR16 Alfredo Duque M.D. Diagnosis, Assessment PlanFree Text A P:Advanced Care Plan for patients age > 65 *Advanced Care Plan Discussed: [ X]Yes who, living will, POA, and code status FULL[ ] No explain why] *Surrogate Decision Maker: [ ]Yes who [ ] No explain why 73-year-old female with metastatic breast cancer. She has a pathological fracture of the right femoral neck status post right hip hemiarthroplasty for which she is weightbearing as tolerated. She also has some metastatic lesions in the spine not currently causing spinal cord compromise. She is to follow-up with Dr. Worrell in 6 weeks. She has [facility] [place]. She will need to follow with Dr. Villatoro or another oncologist after discharge. Plan comprehensive rehab with PT and OT. Will manage her pain and follow incision for signs and symptoms of infection drainage or breakdown. Continue DVT prophylaxis. Will handle medical problems as they arise throughout her hospital course 12/19: Hip incision looks good. She has minimal pain. Team conference the day after tomorrow. Will try to discharge her soon as possible if she needs to get on with any treatment for her cancer. Hip incision looks good. Continue rehab.12/20: Pt seen. Making progress with therapy. Pain controlled. MRI of the brain shows skull lesion to the posterior right skull. No intracranial masses. Team Conference tomorrow. Rehab attestation:Face to face exam completed. Treatment plan discussed with patient. Meets continued stay criteria. Agree with interdisciplinary treatment plan. at 1552 RPT #:[id number] OF REPORTPRProgress [id number]:03:00G.[id number] for patient bynwHYWMYIBVWPOEQU7003-89-61M91:53:07 [facility] 2023-12-20 20:36:00 [id number] Vd5ulGh7kaD/DSKcR 7ettW6OwoFpguvuGsfd9880-50-74D91:36:00 [facility] ([facility])Tevin/Oncology Progress NoteREPORT#:[id number] REPORT STATUS: SignedREPORT INITIALIZATION DATE:12/20/23 TIME: 2035 PATIENT: JUSTYNA GAMING UNIT #: [id number]#: [id number] [address] [birth year] AGE: 73 SEX: F ATTEND: Fern Mata MDADM AUTHOR: Leanna Villatoro MDREPT SERVICE DT/TIME: 12/20/232035* ALL edits or amendments must be made on the electronic/computer document * SubjectiveChief Complaint:fu met breast cancer and path hip fracture transferred to rehab Objective Physical ExamVS:Vital Signs Date Temp Pulse Resp B/P B/P Mean Pulse Ox FiO2 12/19 36.5-36.9 49-64 16-17 136-164/69-73 93.7-102.1 94-96 Last Documented: Result Date Time Pulse Ox 95 12/19 1825 B/P 162/70 12/19 1825 B/P Mean 100.5 12/19 1825 O2 Delivery Room air 12/19 1824 Temp 36.8 12/19 182 Pulse 64 12/19 1825 Resp 17 12/19 1825 General appearance: awakeHEENT: pupils reactive to lightCardiovascular: regular rate and rhythm, normal heart soundsRespiratory: aerating well, symmetric expansion, no distressAbdomen: non-tender, soft, no mass/organomegalyExtremities: moves allNeuro/PRODUCT SAFETY LEAD: alert, oriented X 3, no motor deficits, no sensory deficits Current MedicationsMedications:Active Meds + DC'd Last 24 HrsLosartan Potassium (COZAAR) 50 MG BID PC PO Clonidine HCl (CATAPRES) 0.1 MG BID PRN PRN PO Amlodipine Besylate (NORVASC) 5 MG BEDTIME PO Hydrochlorothiazide (hydroCHLOROthiazide) 12.5 MG DAILY PO Bisacodyl (DULCOLAX) 10 MG BEDTIME PO Polyethylene Glycol (MIRALAX) 17 GM BID PO Dexamethasone (DECADRON) 6 MG TID PO Acetaminophen (TYLENOL) 650 MG Q4H PRN PRN PO Albuterol Sulfate (ALBUTEROL SULFATE) 2.5 MG RTQ4H PRN PRN NEB Docusate Sodium (COLACE) 100 MG BID PRN PRN PO Hydrocodone Bitart/Acetaminophen (NORCO 5/325) 1 TAB Q4H PRN PRN PO Tramadol HCl (ULTRAM) 50 MG Q4H PRN PRN PO Acetaminophen (TYLENOL) 650 MG Q4H PRN PRN PO Enoxaparin Sodium (lovENOX) 30 MG Q12H SUBQ Ondansetron HCl (ZOFRAN ODT) 4 MG Q6H PRN PRN PO Polyethylene Glycol (MIRALAX) 17 GM BID PRN PRN PO ResultsFindings/Data:Laboratory Tests Test Result Date Time Chemistry Sodium (134 - 147 mEq/L) 136 12/17 0609 Potassium (3.4 - 5.0 mEq/L) 3.7 12/17 0609 Chloride (100 - 108 mEq/L) 104 12/17 0609 Carbon Dioxide (21 - 33 mEq/l) 26 12/17 0609 Anion Gap (0 - 20) 10 12/17 0609 BUN (7 - 25 mg/dL) 38 H 12/17 0609 Creatinine (0.6 - 1.3 mg/dL) 0.9 12/17 0609 Glomerular Filtr Rate (70 - 80) 67.1 L 12/17 0609 Glucose (77 - 141 mg/dL) 117 12/17 0609 Calcium (8.0 - 10.5 mg/dL) 7.5 L 12/17 0609 Total Bilirubin (0.0 - 1.0 mg/dL) 0.90 12/17 0609 AST (8 - 34 IUnit/L) 73 H 12/17 0609 ALT (10 - 49 IUnit/L) 42 12/17 0609 Total Alk Phosphatase (20 - 125 IUnit/L) 159 H 12/17 0609 Total Protein (6.4 - 8.2 g/dL) 5.7 L 12/17 0609 Albumin (3.4 - 5.0 g/dL) 2.90 L 12/17 0609 CA 15-3 Antigen (0.0 - 25.0 U/mL) 35.8 H 12/17 0609 Vitamin B12 (193 - 986 pg/mL) 899 12/16 0500 Vitamin D 25-Hydroxy (30 - 100 ng/mL) 37.7 12/16 0500 Folate (3.1 - 17.5 ng/mL) 8.2 12/16 0500 TSH (0.42 - 5.47) 4.79 12/160 Hematology WBC (4.5 - 11.0 x10 3/uL) 9.3 12/17 608 RBC (3.54 - 5.02 x10 6/uL) 3.63 12/17 608 Hgb (11.0 - 15.0 g/dL) 11.0 12/17 608 Hct (33.0 - 45.0 %) 32.1 L 12/17 608 MCV (81.0 - 99.0 fL) 88.4 12/17 608 MCH (27.0 - 33.0 pg) 30.3 12/17 608 MCHC (33.0 - 37.0 g/dL) 34.3 12/17 608 RDW (11.5 - 14.5 %) 14.3 12/17 608 Plt Count (150 - 400 x10 3/uL) 192 12/17 608 MPV (7.0 - 9.0 fL) 11.2 H 12/17 608 Neut % (Auto) (56.0 - 77.0 %) 85.8 H 12/17 608 Lymph % (Auto) (14.0 - 32.0 %) 7.0 L 12/17 608 Barrow % (Auto) (4.8 - 9.0 %) 5.4 12/17 608 Eos % (Auto) (0.3 - 3.7 %) 0.0 L 12/17 608 Baso % (Auto) (0.0 - 2.0 %) 0.2 12/17 608 Neut # (Auto) (2.0 - 7.6 x10 3/uL) 7.98 H 12/17 608 Lymph # (Auto) (1.0 - 3.8 x10 3/uL) 0.65 L 12/17 608 Barrow # (Auto) (0.1 - 0.8 x10 3/uL) 0.50 12/17 608 Eos # (Auto) (0.0 - 0.2 x10 3/uL) 0.00 12/17 0609 Baso # (Auto) (0.0 - 0.2 x10 3/uL) 0.02 12/17 0609 Abs Immat Gran (auto) (0.00 - 0.03 x10 3/uL) 0.15 H 12/17 0609 Immature Gran % (0.0 - 2.0 %) 1.6 12/17 0609 Nucleated RBC % (0 - 0 %) 0.0 12/17 0609 Nucleated RBCs # (Man) (0.0 - 0.1 x10 3/uL) 0.00 12/17 0609 Current Medications Sig/Fozia Start time Last Medication Dose Route Stop Time Status Admin Losartan Potassium 50 MG BID PC 12/18 1800 AC 12/19 PO 03/16 1759 1742 Clonidine HCl 0.1 MG BID PRN PRN 12/18 1630 AC 12/18 PO 03/18 1629 1650 Amlodipine Besylate 5 MG BEDTIME 12/17 2100 AC 12/18 PO 03/17 2059 2106 Hydrochlorothiazide 12.5 MG DAILY 12/16 0900 AC 12/19 PO 03/16 0859 0830 Bisacodyl 10 MG BEDTIME 12/15 2100 AC 12/18 PO 12/19 2101 2106 Polyethylene Glycol 17 GM BID 12/15 2100 AC 12/18 PO 12/20 0901 2107 Dexamethasone 6 MG TID 12/15 1500 AC 12/19 PO 03/15 1459 1600 Acetaminophen 650 MG Q4H PRN PRN 12/15 1415 AC PO 03/15 1414 Albuterol Sulfate 2.5 MG RTQ4H PRN PRN 12/15 1415 AC NEB 03/15 1414 Docusate Sodium 100 MG BID PRN PRN 12/15 1415 AC PO 03/15 1414 Hydrocodone Bitart/ 1 TAB Q4H PRN PRN 12/15 1415 AC Acetaminophen PO 12/20 1414 Tramadol HCl 50 MG Q4H PRN PRN 12/15 1415 AC 12/19 PO 12/20 1414 1336 Acetaminophen 650 MG Q4H PRN PRN 12/15 1400 AC PO 03/15 1359 Enoxaparin Sodium 30 MG Q12H 12/15 1400 AC 12/19 SUBQ 03/15 1359 1045 Ondansetron HCl 4 MG Q6H PRN PRN 12/15 1400 AC PO 03/15 1359 Polyethylene Glycol 17 GM BID PRN PRN 12/15 1400 AC PO 03/15 1359 Diagnosis, Assessment Plan Free Text DxA P NotesFree Text DxA P Notes:1. Breast cancer 2. Metastatic malignancy likely recurrent breast 3. Spinal stenosis due to metastaic disease 4. pathological hip fracture 5. Hypercalcemia of maligancy PLanrecommend MRI brain if not already doen due to extensive metastatic disease.s/p right hip surgery on 12/14tissue sent for path results pending for confirmation and molecular tumor profilingspoke with DR Hurtado and Dr Worrell and DR Payne to coordinate care. continue dex 4mg q 8 and will slowly taper after competion of xrt.Plan is short course of IP rehab and OP XRT as she does not have any impending neurological dysfunction and insurance not able to provide ambulance rides for XRT.s/p zometa on 12/14 - monitor calciummonitor creatinine.IVF hydraionpending ca and path /ill awaiting pathwill start letrozole whicle awaiting path from 12/15 based on prior ER positive disease. cotinue rehabneeds MRI brain to complete staging w/ucontinue dex TIDOP XRT planned for spinal epidural mass. at 2039 RPT #:[id number] OF REPORTPRProgress [id number]:36:00G.[id number] for patient rqxuSHFMQMTWJKPUUZ0894-27-81G53:39:39 [facility] 2023-12-20 16:05:00 [id number]+mLr5LyoTLuHzBWOgpcQh JyL/YF8UAWpxMilz/ 5SDVdtEJRUI2kI8gyHo5770-48-07C33:05:00 [facility] ([facility])Rehab Progress NoteREPORT#:[id number] REPORT STATUS: SignedREPORT INITIALIZATION DATE:12/20/23 TIME: 1605 PATIENT: CONSTANTINO GAMINGN UNIT #: [id number]#: [id number] [facility]DOB: [birth year] AGE: 73 SEX: F ATTEND: Fern Mata MDA AUTHOR: Fern Mata MDREPT SERVICE DT/TIME: 12/20/23 5681* ALL edits or amendments must be made on the electronic/computer document * SubjectiveChief complaint:Seen working with OT. She was in the shower. Hip incision is covered. There is no drainage noted. Pain okay. Review of SystemsConstitutional:Denies: chills, generalized weakness. Respiratory:Denies: DOBSON (dyspnea on exertion), SOB. Cardiovascular:Denies: chest pain, palpitations. GI:Denies: abdominal pain. :Denies: dysuria. Objective GeneralVS:Vital Signs: Date Time Temp Pulse Resp B/P B/P Pulse O2 O2 Flow FiO2 Mean Ox Delivery Rate 12/19 0627 97.7 49 16 164/71 102.1 96 12/19 0003 97.9 58 17 136/73 93.7 95 12/18 1928 98.1 61 17 151/71 98.0 94 PATIENT WEIGHT: Weight (lb): 187Weight (oz): 6.29Weight (kg): 85.000 Medications:Active Meds + DC'd Last 24 HrsLosartan Potassium (COZAAR) 50 MG BID PC PO Clonidine HCl (CATAPRES) 0.1 MG BID PRN PRN PO Amlodipine Besylate (NORVASC) 5 MG BEDTIME PO Hydrochlorothiazide (hydroCHLOROthiazide) 12.5 MG DAILY PO Bisacodyl (DULCOLAX) 10 MG BEDTIME PO Polyethylene Glycol (MIRALAX) 17 GM BID PO Dexamethasone (DECADRON) 6 MG TID PO Acetaminophen (TYLENOL) 650 MG Q4H PRN PRN PO Albuterol Sulfate (ALBUTEROL SULFATE) 2.5 MG RTQ4H PRN PRN NEB Docusate Sodium (COLACE) 100 MG BID PRN PRN PO Hydrocodone Bitart/Acetaminophen (NORCO 5/325) 1 TAB Q4H PRN PRN PO Tramadol HCl (ULTRAM) 50 MG Q4H PRN PRN PO Acetaminophen (TYLENOL) 650 MG Q4H PRN PRN PO Enoxaparin Sodium (lovENOX) 30 MG Q12H SUBQ Ondansetron HCl (ZOFRAN ODT) 4 MG Q6H PRN PRN PO Polyethylene Glycol (MIRALAX) 17 GM BID PRN PRN PO Functional ProgressFunctional progress:The data set between the solid lines has been imported from multidisciplinary team documentation. FUNCTIONAL ACTIVITY ADMISSION STATUS INTERIM STATUS Toilet hygiene Supervision/touch (4) Supervision/touch (4) Toilet transfer Supervision/touch (4) Supervision/touch (4) Eating Independent (6) Independent (6) Shower/bathing Substantial/max (2) Partial/moderate (3) Dressing upper body Partial/moderate (3) Setup or cleanup (5) Dressing lower body Dependent (1) Partial/moderate (3) Transfer to/from bed to chair Supervision/touch (4) Wheel 50ft w/ 2 turns Supervision/touch (4) Wheel 150 ft Supervision/touch (4) Walk 50 ft w/ 2 turns Supervision/touch (4) Walk 150 ft Not attempted (88) Four steps Physical ExamGeneral appearance: alert, awake, orientedHEENT: mucosal membranes moist, pupils reactive to lightNeck: suppleCardiovascular: regular rate rhythmRespiratory: clear bilaterallyAbdomen: obese, soft, non-tenderSkin: incision, (COVERED WITH AQUACEL), dry, intactMusculoskeletal - general: Musculoskeletal - general: normal muscle mass, normal tone, range of motion normalNeuro/PRODUCT SAFETY LEAD: alert, oriented X 3, CNII-XII intact, no motor deficits, no sensory deficits Diagnosis, Assessment PlanProblem List/A P: 1. Cancer of left breast, stage 4 2. HTN (hypertension) 3. Pathologic fracture of neck of right femur Free Text A P:Advanced Care Plan for patients age > 65 *Advanced Care Plan Discussed: [ X]Yes who, living will, POA, and code status FULL[ ] No explain why] *Surrogate Decision Maker: [ ]Yes who [ ] No explain why 73-year-old female with metastatic breast cancer. She has a pathological fracture of the right femoral neck status post right hip hemiarthroplasty for which she is weightbearing as tolerated. She also has some metastatic lesions in the spine not currently causing spinal cord compromise. She is to follow-up with Dr. Worrell in 6 weeks. She has a surgical oncologist that she has been seen[facility] in [place]. She will need to follow with Dr. Villatoro or another oncologist after discharge. Plan comprehensive rehab with PT and OT. Will manage her pain and follow incision for signs and symptoms of infection drainage or breakdown. Continue DVT prophylaxis. Will handle medical problems as they arise throughout her hospital course 12/19: Hip incision looks good. She has minimal pain. Team conference the day after tomorrow. Will try to discharge her soon as possible if she needs to get on with any treatment for her cancer. Hip incision looks good. Continue rehab.Rehab attestation:Face to face exam completed. Treatment plan discussed with patient. Meets continued stay criteria. Agree with interdisciplinary treatment plan. at 1607 [facility] #:[id number] OF REPORTPRProgress [id number]:05:00G.[id number] for patient nuibGUCASCCUBPFRPX7162-38-76P56:08:17 [facility] 2023-12-20 15:03:00 [id number] efkOpHM7r6UbpOaiL WaODG+XtgeR5PlBXGKP5409-33-65U28:03:00 [facility] ([facility])Hospitalist Progress NoteREPORT#:[id number] REPORT STATUS: SignedREPORT INITIALIZATION DATE:12/20/23 TIME: 150 PATIENT: JUSTYNA GAMING UNIT #: [id number]#: [id number] ROOM/BED: [facility]2DOB: [birth year] AGE: 73 SEX: F ATTEND: Fern Mata [facility] AUTHOR: Travis Chavez DOREPT SERVICE DT/TIME: 12/20/23 1503* ALL edits or amendments must be made on the electronic/computer document * SubjectiveChief complaint:Patient feeling well today, however blood pressure persistently elevatedHPI:4 WF WITH HTN, BREAST CANCER, S/P CHEMO/XRT IN 2013, NOW ADMITTED FOR RIGHT HIP PAIN, FOUND TO HAVE PATHOLOGIC FRACTURE, AND NEW DIFFUSE VERTEBRAL METS WITH EPIDURAL MASS AND PARTIAL CORD COMPRESSION. SEEN ORTHO/ONC/NS/REHAB, AND PLAN FOR IRF COURSE AND XRT DURING IRF, AND OUTPATIENT CHEMO. Orthopedics consulted, patient taken to the OR for right hemiarthroplasty on 12/15/2023. PMR was consulted and patient was transferred to rehab unit for inpatient rehab. Objective GeneralVS/I O:Vital Signs: Date Time Temp Pulse Resp B/P B/P Pulse O2 O2 Flow FiO2 Mean Ox Delivery Rate 12/19 0627 97.7 49 16 164/71 102.1 96 12/19 0003 97.9 58 17 136/73 93.7 95 12/18 1928 98.1 61 17 151/71 98.0 94 12/18 1551 98.2 58 17 186/84 118.2 91 Room air 24 hour I O ending at 0700: 12/19 0700 12/18 1900 Intake Total 240 1050 Output Total Balance 240 1050 Intake, Oral 240 814 Intake, Oral 236 Supplement Number 0 Incontinent Voids Number Voids 3 PATIENT WEIGHT: Weight (lb): 187Weight (oz): 6.29Weight (kg): 85.000 ResultsResults: labs reviewed, vital signs reviewed Free Text Obj NotesFree Text Obj Notes:General appearance: chronically ill appearing, obese, alert, awakeHead/Eyes: Atraumatic, normocephalicNeck: no JVDCardiovascular: normal heart sounds, regular rate rhythmRespiratory: aerating well, clear to auscultation, symmetric expansionAbdomen: obese, non-tender, normal bowel sounds, softExtremities: TRACE PRETIBIAL EDEMAMusculoskeletal: decreased ROMNeuro/PRODUCT SAFETY LEAD: alert, oriented X 3Skin: normal colorPsychiatry: normal affect Diagnosis, Assessment Plan Free Text DxA P NotesFree text DxA P notes:Right femoral PATHOLOGIC Fracture/Right hip fracture, S/P HEMIARTHROPLASTY -- ORTHO SEEN -12/15: transferred to inpatient rehab unit MET VERTEBRAL METS/Multiple lytic bone lesions/PARTIAL CORD COMPRESSION DUE TO EPIDURAL MASS - NS/ONC SEEN, PLAN FOR XRT I/P WHILE IN REHAB-Dexamethasone 6 mg 3 times daily Hypercalcemia OF MALIGNANCY - RESOLVED WITH ZOMETA X1 AND IVF BY ONC Hypertension -Likely exacerbated by steroids, consider weaning down when no longer needed-Continue home hydrochlorothiazide-Losartan increased to 50 mg twice daily Amlodipine 5 mg at bedtime-Clonidine 0.1 mg twice daily as needed for systolic blood pressure greater [id number] Asthma/pneumonia - DONE WITH ABX History of breast cancer WITN BONY METS - NEEDS O/P CHEMO BY ONC Constipation aggressive bowel regimen DVT PX - LOVENOX 30 BID PlansReviewed imaging reports, concerning for metastatic processOrthopedic consulted in the ERConsider oncology consult in the morningAnalgesia as toleratedIv zithromaxDuoneb breathing treatment q4h prnSupp O2 as neededIV fluid, monitor serum calcium. IV prn hydralazine for elevated blood pressure Further care per clinical courseCODE STATUS: full code. 12/14- s/p right hip arthroplasty for pathologic hip fracture. Multiple mets of the spine. XRT plans on going emergency radiation treatment ROSA while in the hospital for 5 treatments. 12/17 -losartan increased to 25 mg twice daily. Add amlodipine 5 mg at bedtime for hypertension. 12/18-blood pressure still elevated 170 systolic, increase losartan to 50 mg twice daily. 12/19-blood pressure is elevated 160s this morning, will need to recheck this afternoon and adjust medication accordingly at 1505 RPT #:[id number] OF REPORTPRProgress [id number]:03:00G.[id number] for patient xtrxCZCNYHSMZKFWME3853-82-94N20:06:09 [facility] 2023-12-19 13:31:00 [id number] HUlsigj8dvbrKNYBI Q06bAznt9PSgRhVKj/X3736-48-91Z87:31:00 [facility]Hospital[facility] Progress NoteREPORT#:[id number] REPORT STATUS: SignedREPORT INITIALIZATION DATE:12/19/23 TIME: 1330 PATIENT: JUSTYNA GAMING UNIT #: [id number]#: [id number] [address] AGE: 73 SEX: F ATTEND: Fern Mata [facility] AUTHOR: Travis Chavez SERVICE DT/TIME: 12/19/23 1331* ALL edits or amendments must be made on the electronic/computer document * SubjectiveChief complaint:Patient feeling well today, however blood pressure persistently elevatedHPI:4 WF WITH HTN, BREAST CANCER, S/P CHEMO/XRT IN 2013, NOW ADMITTED FOR RIGHT HIP PAIN, FOUND TO HAVE PATHOLOGIC FRACTURE, AND NEW DIFFUSE VERTEBRAL METS WITH EPIDURAL MASS AND PARTIAL CORD COMPRESSION. SEEN ORTHO/ONC/NS/REHAB, AND PLAN FOR IRF COURSE AND XRT DURING IRF, AND OUTPATIENT CHEMO. Orthopedics consulted, patient taken to the OR for right hemiarthroplasty on 12/15/2023. PMR was consulted and patient was transferred to rehab unit for inpatient rehab. Objective GeneralVS/I O:Vital Signs: Date Time Temp Pulse Resp B/P B/P Pulse O2 O2 Flow FiO2 Mean Ox Delivery Rate 12/18 626 97.7 61 17 173/71 105.4 97 Room air 12/17 2307 97.7 64 18 170/70 103.2 97 Room air 12/17 2126 98.4 58 17 186/77 113.7 98 Room air 12/17 1517 97.9 48 15 176/76 109.5 94 Room air 24 hour I O ending at 0700: 12/18 0700 12/17 1900 Intake Total 240 680 Output Total Balance 240 680 Intake, Oral 240 680 Number 2 Incontinent Voids Number Voids 2 PATIENT WEIGHT: Weight (lb): 187Weight (oz): 6.29Weight (kg): 85.000 ResultsResults: labs reviewed, vital signs reviewed Free Text Obj NotesFree Text Obj Notes:General appearance: chronically ill appearing, obese, alert, awakeHead/Eyes: Atraumatic, normocephalicNeck: no JVDCardiovascular: normal heart sounds, regular rate rhythmRespiratory: aerating well, clear to auscultation, symmetric expansionAbdomen: obese, non-tender, normal bowel sounds, softExtremities: TRACE PRETIBIAL EDEMAMusculoskeletal: decreased ROMNeuro/PRODUCT SAFETY LEAD: alert, oriented X 3Skin: normal colorPsychiatry: normal affect Diagnosis, Assessment Plan Free Text DxA P NotesFree text DxA P notes:Right femoral PATHOLOGIC Fracture/Right hip fracture, S/P HEMIARTHROPLASTY -- ORTHO SEEN -12/15: transferred to inpatient rehab unit MET VERTEBRAL METS/Multiple lytic bone lesions/PARTIAL CORD COMPRESSION DUE TO EPIDURAL MASS - NS/ONC SEEN, PLAN FOR XRT I/P WHILE IN REHAB-Dexamethasone 6 mg 3 times daily Hypercalcemia OF MALIGNANCY - RESOLVED WITH ZOMETA X1 AND IVF BY ONC Hypertension -Continue home hydrochlorothiazide-Losartan increased to 25 mg twice daily Amlodipine 5 mg at bedtime Asthma/pneumonia - DONE WITH ABX History of breast cancer WITN BONY METS - NEEDS O/P CHEMO BY ONC Constipation aggressive bowel regimen DVT PX - LOVENOX 30 BID PlansReviewed imaging reports, concerning for metastatic processOrthopedic consulted in the ERConsider oncology consult in the morningAnalgesia as toleratedIv zithromaxDuoneb breathing treatment q4h prnSupp O2 as neededIV fluid, monitor serum calcium. IV prn hydralazine for elevated blood pressure Further care per clinical courseCODE STATUS: full code. 12/14- s/p right hip arthroplasty for pathologic hip fracture. Multiple mets of the spine. XRT plans on going emergency radiation treatment ROSA while in the hospital for 5 treatments. 12/17 -losartan increased to 25 mg twice daily. Add amlodipine 5 mg at bedtime for hypertension. 3/31-blood pressure still elevated 170 systolic, increase losartan to 50 mg twice daily. at 1333 [facility] #:[id number] OF REPORTPRProgress [id number]:31:00G.[id number] for patient hmveNPIQKGKFTZAVIC0622-37-96R76:34:10 [facility] 2023-12-18 15:48:00 [id number]/6hzW4Mxp8B3SLs5ufK +6nldXm026OBCXHOL VeqSVGLgLeQwHqZHRte3372-44-49Q23:48:00 [facility] HospitalHospitalist Progress NoteREPORT#:[id number] REPORT STATUS: SignedREPORT INITIALIZATION DATE:12/18/23 TIME: 1547 PATIENT: JUSTYNA GAMING UNIT #: [id number]#: [id number] [address] [birth year] AGE: 73 SEX: F ATTEND: Fern Mata [facility] AUTHOR: Travis Chavez DOREPT SERVICE DT/TIME: 12/18/23 1548* ALL edits or amendments must be made on the electronic/computer document * SubjectiveChief complaint:Patient feeling well today, however blood pressure persistently elevatedHPI:4 WF WITH HTN, BREAST CANCER, S/P CHEMO/XRT IN 2013, NOW ADMITTED FOR RIGHT HIP PAIN, FOUND TO HAVE PATHOLOGIC FRACTURE, AND NEW DIFFUSE VERTEBRAL METS WITH EPIDURAL MASS AND PARTIAL CORD COMPRESSION. SEEN ORTHO/ONC/NS/REHAB, AND PLAN FOR IRF COURSE AND XRT DURING IRF, AND OUTPATIENT CHEMO. Orthopedics consulted, patient taken to the OR for right hemiarthroplasty on 12/15/2023. PMR was consulted and patient was transferred to rehab unit for inpatient rehab. Objective GeneralVS/I O:Vital Signs: Date Time Temp Pulse Resp B/P B/P Pulse O2 O2 Flow FiO2 Mean Ox Delivery Rate 12/17 1517 97.9 48 15 176/76 109.5 94 Room air 12/17 0858 57 135/61 85.8 94 12/17 0613 97.9 66 15 164/75 104.4 95 Room air 12/16 2330 97.7 62 18 177/72 106.7 94 Room air 12/16 1908 97.3 55 18 171/78 109.0 97 Room air 12/16 1648 63 16 153/74 100.2 96 12/16 1552 97.7 58 20 186/75 112.5 98 24 hour I O ending at 0700: 12/17 0700 12/16 1900 Intake Total 240 250 Output Total Balance 240 250 Intake, Oral 240 250 Number 0 Incontinent Voids Number Voids 2 PATIENT WEIGHT: Weight (lb): 187Weight (oz): 6.29Weight (kg): 85.000 ResultsFindings/Data:Laboratory Tests 12/17 608 Chemistry Sodium (134 - 147 mEq/L) 136 Potassium (3.4 - 5.0 mEq/L) 3.7 Chloride (100 - 108 mEq/L) 104 Carbon Dioxide (21 - 33 mEq/l) 26 Anion Gap (0 - 20) 10 BUN (7 - 25 mg/dL) 38 H Creatinine (0.6 - 1.3 mg/dL) 0.9 Glomerular Filtr Rate (70 - 80) 67.1 L Glucose (77 - 141 mg/dL) 117 Calcium (8.0 - 10.5 mg/dL) 7.5 L Total Bilirubin (0.0 - 1.0 mg/dL) 0.90 AST (8 - 34 IUnit/L) 73 H ALT (10 - 49 IUnit/L) 42 Total Alk Phosphatase (20 - 125 IUnit/L) 159 H Total Protein (6.4 - 8.2 g/dL) 5.7 L Albumin (3.4 - 5.0 g/dL) 2.90 L Laboratory Tests 12/17 608 Hematology WBC (4.5 - 11.0 x10 3/uL) 9.3 RBC (3.54 - 5.02 x10 6/uL) 3.63 Hgb (11.0 - 15.0 g/dL) 11.0 Hct (33.0 - 45.0 %) 32.1 L MCV (81.0 - 99.0 fL) 88.4 MCH (27.0 - 33.0 pg) 30.3 MCHC (33.0 - 37.0 g/dL) 34.3 RDW (11.5 - 14.5 %) 14.3 Plt Count (150 - 400 x10 3/uL) 192 MPV (7.0 - 9.0 fL) 11.2 H Neut % (Auto) (56.0 - 77.0 %) 85.8 H Lymph % (Auto) (14.0 - 32.0 %) 7.0 L Barrow % (Auto) (4.8 - 9.0 %) 5.4 Eos % (Auto) (0.3 - 3.7 %) 0.0 L Baso % (Auto) (0.0 - 2.0 %) 0.2 Neut # (Auto) (2.0 - 7.6 x10 3/uL) 7.98 H Lymph # (Auto) (1.0 - 3.8 x10 3/uL) 0.65 L Barrow # (Auto) (0.1 - 0.8 x10 3/uL) 0.50 Eos # (Auto) (0.0 - 0.2 x10 3/uL) 0.00 Baso # (Auto) (0.0 - 0.2 x10 3/uL) 0.02 Abs Immat Gran (auto) (0.00 - 0.03 x10 3/uL) 0.15 H Immature Gran % (0.0 - 2.0 %) 1.6 Nucleated RBC % (0 - 0 %) 0.0 Nucleated RBCs # (Man) (0.0 - 0.1 x10 3/uL) 0.00 Results: labs reviewed, vital signs reviewed Free Text Obj NotesFree Text Obj Notes:General appearance: chronically ill appearing, obese, alert, awakeHead/Eyes: Atraumatic, normocephalicNeck: no JVDCardiovascular: normal heart sounds, regular rate rhythmRespiratory: aerating well, clear to auscultation, symmetric expansionAbdomen: obese, non-tender, normal bowel sounds, softExtremities: TRACE PRETIBIAL EDEMAMusculoskeletal: decreased ROMNeuro/PRODUCT SAFETY LEAD: alert, oriented X 3Skin: normal colorPsychiatry: normal affect Diagnosis, Assessment Plan Free Text DxA P NotesFree text DxA P notes:Right femoral PATHOLOGIC Fracture/Right hip fracture, S/P HEMIARTHROPLASTY -- ORTHO SEEN -12/15: transferred to inpatient rehab unit MET VERTEBRAL METS/Multiple lytic bone lesions/PARTIAL CORD COMPRESSION DUE TO EPIDURAL MASS - NS/ONC SEEN, PLAN FOR XRT I/P WHILE IN REHAB-Dexamethasone 6 mg 3 times daily Hypercalcemia OF MALIGNANCY - RESOLVED WITH ZOMETA X1 AND IVF BY ONC Hypertension -Continue home hydrochlorothiazide-Losartan increased to 25 mg twice daily Amlodipine 5 mg at bedtime Asthma/pneumonia - DONE WITH ABX History of breast cancer WITN BNY METS - NEEDS O/P CHEMO BY ONC, PATH PENDING Constipation aggressive bowel regimen DVT PX - LOVENOX 30 BID PlansReviewed imaging reports, concerning for metastatic processOrthopedic consulted in the ERConsider oncology consult in the morningAnalgesia as toleratedIv zithromaxDuoneb breathing treatment q4h prnSupp O2 as neededIV fluid, monitor serum calcium. IV prn hydralazine for elevated blood pressure Further care per clinical courseCODE STATUS: full code. 12/14- s/p right hip arthroplasty for pathologic hip fracture. Multiple mets of the spine. XRT plans on going emergency radiation treatment ROSA while in the hospital for 5 treatments. 12/17 -losartan increased to 25 mg twice daily. Add amlodipine 5 mg at bedtime for hypertension. at 1549 RPT #:[id number] OF REPORTPRProgress [id number]:48:00G.[id number] for patient ipoyMYMMJCMJBTGMVQ2530-72-21M02:50:17 [facility] 2023-12-17 22:10:00 [id number]//umEVXM5l5/Xr4Rq +z54h58N1CJRMTh56 juToEiqLwl5vi1g3l9c7099-57-16N37:10:00 [facility] ([facility] Overall POCREPORT#:[id number] REPORT STATUS: SignedREPORT INITIALIZATION DATE:12/17/23 TIME: 2209 PATIENT: CONSTANTINO GAMINGN UNIT #: [id number]#: [id number] ROOM[facility]BED: [facility]DOB: [birth year] AGE: 73 SEX: F ATTEND: Fern Mata AUTHOR: Fern Mata MDREPT SERVICE DT/TIME: 12/17/23 2920* ALL edits or amendments must be made on the electronic/computer document * Individualized Overall POC HPIImpairment group: orthopedic disorders NOTE Document ONLY ONE Impairment Group Orthopedic disorders: unilateral hip fractureEtiologic diagnosis:Pathological right femoral neck fracture Medical Expected CourseExpected DC destination:Expected DC destination: Home Problem List/A P: 1. Cancer of left breast, stage 4 2. HTN (hypertension) 3. Pathologic fracture of neck of right femur Medical prognosis: fairMedical prognosis details: endurance, D/C plan, financial resourcesExpected course of Tx:COMPREHENSIVE REHAB. Functional Expected CourseFunctional expected course:The data set between the solid lines has been imported from multidisciplinary team documentation: ANTICIPATED SERVICES IN ACUTE INPATIENT REHAB: DISCIPLINE Physical Therapy Occupational Therapy Speech TherapyINTENSITY (minutes/day) 90 90FREQUENCY (days/week) 5 6DURATION (# of days) 15 15 EXPECTED FUNCTIONAL OUTCOMES: CARE Rolling left and Independent (6) right discharge goal: CARE Sitting to Independent (6) lying discharge goal: CARE Lying to sitting Independent (6) on side of bed discharge goal: CARE Sitting to Independent (6) standing discharge goal: CARE Chair/bed to Independent (6) chair transfer discharge goal: CARE Car transfer Independent (6) discharge goal: CARE Walking 10 Independent (6) feet discharge goal: CARE Walking 50 feet Independent (6) with two turns discharge goal: CARE Walking 150 Independent (6) feet discharge goal: CARE Walking 10 feet on Independent (6) uneven surface discharge goal: CARE 1 step (curb) Independent (6) discharge goal: CARE 4 steps Independent (6) discharge goal: CARE 12 steps Partial/moderate asst (3) discharge goal: CARE Picking up Setup/clean-up only (5) object discharge goal: CARE Harman 50 feet Independent (6) with two turns discharge goal: CARE Harman 150 Independent (6) feet discharge goal: CARE Toileting hygiene Independent (6) discharge goal: CARE Transfer on/off toilet Independent (6) or commode discharge goal: CARE Eating discharge goal: Independent (6) CARE Oral hygiene Independent (6) discharge goal: CARE Shower/bathe Independent (6) self discharge goal: CARE Upper body Independent (6) dressing discharge goal: CARE Lower body Independent (6) dressing discharge goal: CARE Putting on/taking Independent (6) off footwear discharge goal: Bowel function goal: NO INCONTINENT EPISODES WHILE ON REAHB UNITBladder function goal: NO INCONTINENT EPISODES WHILE ON REHAB UNIT ELOS Attestation:Based upon the review of clinical staff recommendations of frequency, duration and intensity and individual assessment of this patient, I estimate the following:PT/OT 3 HOURS/ DAY X 5-6 DAYS/WEEK X 2 WEEKSEstimated length of stay:2 WEEKS MD Review/RecommendationAttestation:Based upon my physical evaluation of the patient and input from the interdisciplinary team members I have developed this interdisciplinary overall plan of care and determined the admission to the IRF is reasonable and necessary.The IOPOC will be updated weekly and modified under my direction. Patient can be expected to actively participate in, and benefit from, an intensive rehab therapy program whose intensity is not provided in lower levels of care. Complex acute rehab needs: Custom therapy tx plan, Mgt of complex Co-morb, Multiple consulting MDs, New medical diagnosis, Live alone/prev independ, Postsurgery req mgt/care, Complex pain management at 4620 RPT #:[id number] OF REPORTCLClinical [id number]:10:00G.[id number] for patient tbqkFTRFWZZWAOCHBZ0033-19-88B47:11:08 [facility] 2023-12-17 15:10:00 [id number]+KqFXhtCvA gosV3vz3M81Aa0rcT 9l3WA4UK0EAJcNeRtKV7951-78-81M99:10:00 [facility] ([facility])Rehab History PhysicalREPORT#:[id number] REPORT STATUS: SignedREPORT INITIALIZATION DATE:12/17/23 TIME: 1509 PATIENT: JUSTYNA GAMING UNIT #: [id number]#: [id number] [address] [birth year] AGE: 73 SEX: F ATTEND: Fern Mata [facility] AUTHOR: Fern Mata MDREPT SERVICE DT/TIME: 12/17/231509* ALL edits or amendments must be made on the electronic/computer document * HPI HPIChief complaint:PainPCP:PCP: No Primary or Family Physician Referring physician:Referring physician: RAH MORENO-HOSPITALIST HPI:73 years old F, admitted emergently due to sudden increased right hip and leg pain for the past 10 days, no h/o fall, patient has been ambulatory with a walker and/or cane in her house for the past 3 months but could not walk in the last 10 days due to this severe hip pain which was diagnosed as a pathological hip fracture in our hospital. She has h/o breast cancer diagnosed and treated since 2013 with lumpectomy, local XRT and chempotherapy. She has been followed (last in ) at [facility] by Dr. Mcqueen (breast surgeon) since then. Patient is lying in bed with daughter by her bedside and cannot move her right hip due to severe pain but can move her distal RLE (foot) quite well. She does mention radiating pain down her leg (RLE) and is not sure about the numbness in legs. Bladder and bowel habits are normal by history. She was taken to the OR by Dr. Alirio Hurtado and for a right pathological femoral neck fracture she underwent a right hip hemiarthroplasty. She is weightbearing as tolerated. She is to be onDVT prophylaxis with Lovenox or 1 adult aspirin twice daily. Our service was consulted on her and referred her to the rehab unit she was admitted yesterday. Of note oncology is planning radiation treatment soon as possible. Dr. [facility]ne[facility]surver[facility] wants to see her in his clinic in 6 weeks to undergo thoracic x-rays to ensure no further collapse of the T7 and T9 vertebral bodies as she has extensive bony and some epidural component of the tumor from T5-T9 levels but there was minimal cord compression and no immediate neurosurgical intervention was deemed necessary at this time.Impairment group: orthopedic disorders NOTE Document ONLY ONE Impairment Group Orthopedic disorders: unilateral hip fractureEtiologic diagnosis:Pathological right femoral neck fracture HistoryPreadmit diagnostic/labs: Date: 12/16/23 12/15/23 WBC: 11.0 HGB: 10.4 HCT: 31.2 Ca: 8.3 Na: 137 K+: 4.0 Glu: 105 Mg: BUN: 41 Creat: 1.4 Tot protein: 6.2 Alb: 3.20 PTT: PT: INR: PLT: 180 Additional labs: Cultures: Imagin/27 RT HIP XR: A hip prosthesis is identified. No new fracture is identified. There is air in the soft tissues, consistent with recent surgery. Metastatic disease to the bones is again demonstrated. 12/13 MRIT-SPINE: Findings consistent with extensive metastatic involvement seen throughout the thoracic spine. There is significant epidural component at T8 seen left ventral to the thecal sac and left laterally with perhaps minimal cord compression and there is a left paracentral ventral epidural component identified at T7 without definite cord compression. Multilevel spondylosis is also seen resulting compromise of the canal at T9-T10 and jlT91-W69 12/13 CT RT LOWER EXTR: Extensive lytic osseous metastatic disease. Acute pathologic subcapital right femoral neck fracture. Subacute appearing right superior and inferior pubic rami fractures. 12/12 CT CHEST: Markedly severe diffuse predominantly lytic osseous metastatic disease. At T7-T9, there is associated mass within spinal canal resulting in severe spinal canal stenosis. Acute pathologic subcapital right femoral neck fracture. Acute appearing fracture of coracoid process of right scapula. Subacute appearing right superior and inferior pubic rami fractures. Mediastinal and right hilar lymphadenopathy. Findings consistent with mild pulmonary edema and air trapping. Atelectasis and/or pneumonia in right lower lobe. Indeterminate liver lesion suspicious for metastasis. Enhancing right renal lesion suspicious for renal cell carcinoma. Left renal lesion does not meet criteria for enhancement suggesting hyperdense cyst 12/12 XR HIP/PELVIS: Subcapital right femoral fracture.Other supporting diagnostics: Past medical history:Reports: Hypertension, Thyroid disorder. Denies: Alcoholism/subst abuse, Anemia, Arthritis, Asthma, Atrial fibrillation, Cancer, Congestive heart failure, COPD, Coronary artery disease, Dementia, Depression/mood disorder, Diabetes mellitus, GERD/gastritis, Kidney disease/stones, Seizure disorder, Transient ischemic attack, , Abdominal aortic aneurysm, ADD/ADHD, AIDS, Angina pectoris, Anticoagulant therapy, Atrial flutter, Bleeding disorder, BPH, C diff colitis, Cardiac dysrhythmias, Chronic pain, Cirrhosis, Congenital anomalies, Dyslipidemia, Gallbladder dis/stones, GI bleed, Glaucoma, Headache disorder, Hepatitis, HIV, Intracranial hemorrhage, Ischemic stroke, Motor dysfunction, Pancreatitis, Peptic ulcer disease, Periph arterial disease, Pressure ulcer, Prior OR, Schizophrenia, Sickle cell disease, Steroid use, Transfusion history, Tuberculosis, Urinary tract infection, Venous thromboembolism. Additional medical history:Matheus breast cancer. Hypertension, hypothyroidismPast surgical history:Reports: Breast biopsy/procedure. 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 Additional surgical history:Bilateral Breast lumpectomy for bilateral breast can cerFamily history:Denies: Abdominal aortic aneurysm, Anemia, Asthma, CAD < 40 yrs old, Cancer, Coagulopathy, Dementia/Alzheimer's dis, Depression/mood disorder, Diabetes, Heart disease, Hypertension, Kidney disease/stones, Seizure disorder, Stroke/TIA, Subarachnoid hemorrhage, Sudden cardiac , Thyroid disorder, , Connective tissue dis, Gallbladder disease, Hyperlipidemia, Neurofibromatosis, Sickle cell disease. Alcohol use: Denies EtOH useDrug use: Denies recreational drugsSmoking status for patients 13 years old or older: Never SmokerOther social history: Primary family support, , retired, lives alone and daughter lives 1/2 hr away and involved in her careAdditional social history:Primary family support, , retired, lives alone and daughter lives 1/2 hr away and involved in her care. She lives in a third floor apartment but the elevator is broken. Her daughter is an occupational therapist. She has a rollator which is borrowed from a friend. She has a single-point cane. She hasno PCP. She has a tub shower combination and her daughter will get her a tub transfer bench. Medications:Home Medications:ALBUTEROL (ALBUTEROL HFA 90 MCG/ACT) (Unknown Dose) ENOXAPARIN (LOVENOX) 30 MG SUBQ Q12HR LOSARTAN (COZAAR) 25 MG PO DAILY ACETAMINOPHEN (TYLENOL) 650 MG PO Q4H PRN PRN PAIN SCALE 1-3/TEMP ABOVE 100F Hydrocodone/Acetaminophen (HYDROcodone/APAP 5/325) 1 TAB PO Q4H PRN PRN PAIN SCALE 4-6, SECOND LINE traMADol (ULTRAM) 50 MG PO Q4H PRN PRN PAIN SCALE 4-6 HYDROCHLOROTHIAZIDE (HCTZ) 12.5 MG PO DAILY DOCUSATE SODIUM (COLACE) 100 MG PO BID PRN PRN CONSTIPATION dexAMETHasone 6 MG PO TID Allergies:Coded Allergies:aspirin (NAUSEA 12/14/23)cefdinir (NAUSEA 12/14/23)codeine (NAUSEA 12/14/23)morphine (NAUSEA 12/14/23) ROS ROSConstitutional:Denies: chills, generalized weakness. Respiratory:Denies: DOBSON, productive cough (sputum), SOB. Cardiovascular:Denies: chest pain, palpitations. GI:Denies: abdominal pain. :Denies: dysuria. Objective Functional Assessment/ExamExtremities: edema Physical ExamVS:Last Documented: Result Date Time Pulse Ox 98 12/16 155 B/P 186/75 12/16 1552 B/P Mean 112.5 12/16 1552 Temp 97.7 12/16 1552 Pulse 58 12/16 1552 Resp 20 12/16 1552 O2 Delivery Room air 12/16 928 PATIENT WEIGHT: Weight (lb): 187Weight (oz): 6.29Weight (kg): 85.000 General appearance: alert, awake, orientedHEENT: mucosal membranes moist, pupils reactive to lightNeck: suppleCardiovascular: regular rate rhythmRespiratory: clear bilaterallyAbdomen: obese, soft, non-tenderSkin: incision, (COVERED WITH AQUACEL), dry, intactMusculoskeletal - general: Musculoskeletal - general: normal muscle mass, normal tone, range of motion normalNeuro/PRODUCT SAFETY LEAD: alert, oriented X 3, CNII-XII intact, no motor deficits, no sensory deficits ResultsFindings/Data:Laboratory Tests: 12/16 12/16 0500 0500 Chemistry Vitamin B12 (193 - 986 pg/mL) 899 Vitamin D 25-Hydroxy (30 - 100 ng/mL) 37.7 Folate (3.1 - 17.5 ng/mL) 8.2 TSH (0.42 - 5.47) 4.79 Microbiology:12/16 0400 NASAL: MRSA DNA Surveillance Screen - RECD Diagnosis, Assessment Plan Diagnosis, Assessment PlanProblem List/A P: 1. Cancer of left breast, stage 4 2. HTN (hypertension) 3. Pathologic fracture of neck of right femur Free Text A P:Advanced Care Plan for patients age > 65 *Advanced Care Plan Discussed: [ X]Yes who, living will, POA, and code status FULL[ ] No explain why] *Surrogate Decision Maker: [ ]Yes who [ ] No explain why 73-year-old female with metastatic breast cancer. She has a pathological fracture of the right femoral neck status post right hip hemiarthroplasty for which she is weightbearing as tolerated. She also has some metastatic lesions in the spine not currently causing spinal cord compromise. She is to follow-up with Dr. Worrell in 6 weeks. She has a surgical onc[facility] that [facility] in [place]. She will need to follow with Dr. Villatoro or another oncologist after discharge. Plan comprehensive rehab with PT and OT. Will manage her pain and follow incision for signs and symptoms of infection drainage or breakdown. Continue DVT prophylaxis. Will handle medical problems as they arise throughout her hospital courseReview of comorbidities:Hypertension, metastatic breast cancerCompare to PAS:No changeEstimated length of stay:2 WEEKS Acute Rehab Attestation NOTE Attestation is for MD onlyComplex acute rehab needs: Custom therapy tx plan, Mgt of complex Co-morb, Multiple consulting MDs, New medical diagnosis, Live alone/prev independ, Postsurgery req mgt/care, Complex pain management at 1616 RPT #:[id number] OF REPORTHPHistory and physical ojywqqfwcxd2530-40-57J99:10:00G.[id number] ble for patient spjdIYULRGRLGPJNPZ4395-28-80I12:16:53 [facility] 2023-12-17 12:35:00 [id number]/4 eZ+XdSRXW1hcgp+VA sKxgHY2HjfeRYbTZOgJ5933-43-82G99:35:00 [facility]Hospital[facility] Progress NoteREPORT#:[id number] REPORT STATUS: SignedREPORT INITIALIZATION DATE:12/17/23 TIME: 1234 PATIENT: JUSTYNA GAMING UNIT #: [id number]#: [id number] [address] AGE: 73 SEX: F ATTEND: Fern Mata [facility] AUTHOR: Travis Chavez SERVICE DT/TIME: 12/17/23 1235* ALL edits or amendments must be made on the electronic/computer document * SubjectiveChief complaint:Patient complains of constipationHPI:3 WF WITH HTN, BREAST CANCER, S/P CHEMO/XRT IN 2013, NOW ADMITTED FOR RIGHT HIP PAIN, FOUND TO HAVE PATHOLOGIC FRACTURE, AND NEW DIFFUSE VERTEBRAL METS WITH EPIDURAL MASS AND PARTIAL CORD COMPRESSION. SEEN ORTHO/ONC/NS/REHAB, AND PLAN FOR IRF COURSE AND XRT DURING IRF, AND OUTPATIENT CHEMO. Orthopedics consulted, patient taken to the OR for right hemiarthroplasty on 12/15/2023. PMR was consulted and patient was transferred to rehab unit for inpatient rehab. Review of SystemsGI:Reports: constipation. All systems rev neg: except as noted Objective GeneralVS/I O:Vital Signs: Date Time Temp Pulse Resp B/P B/P Pulse O2 O2 Flow FiO2 Mean Ox Delivery Rate 12/16 0929 95 Room air 12/16 0629 97.9 56 16 155/72 99.5 95 12/16 0016 98.1 58 18 158/77 104.1 95 12/15 1956 98.1 58 18 151/68 95.7 94 24 hour I O ending at 0700: 12/16 0700 12/15 1900 Intake Total 240 Output Total Balance 240 Intake, Oral 240 Patient 85 kg Weight Weight Bed scale Measurement Method PATIENT WEIGHT: Weight (lb): 187Weight (oz): 6.29Weight (kg): 85.000 ResultsFindings/Data:Laboratory Tests 12/16 12/16 0500 0500 Chemistry Vitamin B12 (193 - 986 pg/mL) 899 Vitamin D 25-Hydroxy (30 - 100 ng/mL) 37.7 Folate (3.1 - 17.5 ng/mL) 8.2 TSH (0.42 - 5.47) 4.79 Results: labs reviewed, vital signs reviewed Free Text Obj NotesFree Text Obj Notes:General appearance: chronically ill appearing, obese, alert, awakeHead/Eyes: Atraumatic, normocephalicNeck: no JVDCardiovascular: normal heart sounds, regular rate rhythmRespiratory: aerating well, clear to auscultation, symmetric expansionAbdomen: obese, non-tender, normal bowel sounds, softExtremities: TRACE PRETIBIAL EDEMAMusculoskeletal: decreased ROMNeuro/PRODUCT SAFETY LEAD: alert, oriented X 3Skin: normal colorPsychiatry: normal affect Diagnosis, Assessment Plan Free Text DxA P NotesFree text DxA P notes:Right femoral PATHOLOGIC Fracture/Right hip fracture, S/P HEMIARTHROPLASTY -- ORTHO SEEN -3/28: transferred to inpatient rehab unit MET VERTEBRAL METS/Multiple lytic bone lesions/PARTIAL CORD COMPRESSION DUE TO EPIDURAL MASS - NS/ONC SEEN, PLAN FOR XRT I/P WHILE IN REHAB-Dexamethasone 6 mg 3 times daily Hypercalcemia OF MALIGNANCY - RESOLVED WITH ZOMETA X1 AND IVF BY ONC Hypertension - STABLE, CONT HOME MEDS (COZAAR/HCTZ) Asthma/pneumonia - DONE WITH ABX History of breast cancer WITN BNY METS - NEEDS O/P CHEMO BY ONC, PATH PENDING Constipation aggressive bowel regimen DVT PX - LOVENOX 30 BID PlansReviewed imaging reports, concerning for metastatic processOrthopedic consulted in the ERConsider oncology consult in the morningAnalgesia as toleratedIv zithromaxDuoneb breathing treatment q4h prnSupp O2 as neededIV fluid, monitor serum calcium. IV prn hydralazine for elevated blood pressure Further care per clinical courseCODE STATUS: full code. 12/14- s/p right hip arthroplasty for pathologic hip fracture. Multiple mets of the spine. XRT plans on going emergency radiation treatment ROSA while in the hospital for 5 treatments. at 1239 RPT #:[id number] OF REPORTPRProgress [id number]:35:00G.[id number] for patient gbdgECZIGMKOMXHCQB4243-70-18P21:40:15 [facility] 2023-12-17 08:57:00 [id number] xoUS151xqEjqu/A3G AxLFcxgnsiMIp5R8x2x3488-05-10Q33:57:00 [facility] ([facility])Tevin/Oncology Progress NoteREPORT#:[id number] REPORT STATUS: SignedREPORT INITIALIZATION DATE:12/17/23 TIME: 856 PATIENT: JUSTYNA GAMING UNIT #: [id number]#: [id number] [address] [birth year] AGE: 73 SEX: F ATTEND: Fern Mata [facility] AUTHOR: Leanna Villatoro MDREPT SERVICE DT/TIME: 12/17/23 0857* ALL edits or amendments must be made on the electronic/computer document * SubjectiveChief Complaint:fu met breast cancer and path hip fracture transferred to rehab Objective Physical ExamVS:Vital SignsDate Temp Pulse Resp B/P B/P Mean Pulse Ox RlJ858/-12/16 36.6-36.7 56-58 16-18 151-158/68-77 95.7-104.1 94-95 Last Documented: Result Date Time Pulse Ox 95 12/16 628 B/P 155/72 12/16 628 B/P Mean 99.5 12/16 628 Temp 36.6 12/16 628 Pulse 56 12/16 628 Resp 16 12/16 628 General appearance: alert, awake, orientedHEENT: pupils reactive to lightCardiovascular: regular rate and rhythm, normal heart soundsRespiratory: aerating well, symmetric expansion, no distressAbdomen: non-tender, soft, no mass/organomegalyExtremities: moves allNeuro/PRODUCT SAFETY LEAD: alert, oriented X 3, no motor deficits, no sensory deficits Current MedicationsMedications:Active Meds + DC'd Last 24 HrsHydrochlorothiazide (hydroCHLOROthiazide) 12.5 MG DAILY PO Losartan Potassium (COZAAR) 25 MG DAILY PO Bisacodyl (DULCOLAX) 10 MG BEDTIME PO Polyethylene Glycol (MIRALAX) 17 GM BID PO Dexamethasone (DECADRON) 6 MG TID PO Acetaminophen (TYLENOL) 650 MG Q4H PRN PRN PO Albuterol Sulfate (ALBUTEROL SULFATE) 2.5 MG RTQ4H PRN PRN NEB Docusate Sodium (COLACE) 100 MG BID PRN PRN PO Hydrocodone Bitart/Acetaminophen (NORCO 5/325) 1 TAB Q4H PRN PRN PO Tramadol HCl (ULTRAM) 50 MG Q4H PRN PRN PO Acetaminophen (TYLENOL) 650 MG Q4H PRN PRN PO Enoxaparin Sodium (lovENOX) 30 MG Q12H SUBQ Ondansetron HCl (ZOFRAN ODT) 4 MG Q6H PRN PRN PO Polyethylene Glycol (MIRALAX) 17 GM BID PRN PRN PO ResultsFindings/Data:Laboratory Tests Test Result Date Time Chemistry Vitamin B12 (193 - 986 pg/mL) 899 12/16 0500 Vitamin D 25-Hydroxy (30 - 100 ng/mL) 37.7 12/16 0500 Folate (3.1 - 17.5 ng/mL) 8.2 12/16 0500 TSH (0.42 - 5.47) 4.79 12/16 0500 Current Medications Sig/Fozia Start time Last Medication Dose Route Stop Time Status Admin Hydrochlorothiazide 12.5 MG DAILY 12/16 09 AC PO 03/16 0859 Losartan Potassium 25 MG DAILY 12/16 0900 AC PO 03/16 0859 Bisacodyl 10 MG BEDTIME 12/15 2100 AC 12/15 PO 12/19 2101 2201 Polyethylene Glycol 17 GM BID 12/15 2100 AC 12/15 PO 12/20 0901 2202 Dexamethasone 6 MG TID 12/15 1500 AC 12/15 PO 03/15 1459 2236 Acetaminophen 650 MG Q4H PRN PRN 12/15 1415 AC PO 03/15 1414 Albuterol Sulfate 2.5 MG RTQ4H PRN PRN 12/15 1415 AC NEB 03/15 1414 Docusate Sodium 100 MG BID PRN PRN 12/15 1415 AC PO 03/15 1414 Hydrocodone Bitart/ 1 TAB Q4H PRN PRN 12/15 1415 AC Acetaminophen PO 12/20 1414 Tramadol HCl 50 MG Q4H PRN PRN 12/15 1415 AC 12/15 PO 12/20 1414 2201 Acetaminophen 650 MG Q4H PRN PRN 12/15 1400 AC PO 03/15 1359 Enoxaparin Sodium 30 MG Q12H 12/15 1400 AC 12/15 SUBQ 03/15 1359 2202 Ondansetron HCl 4 MG Q6H PRN PRN 12/15 1400 AC PO 03/15 1359 Polyethylene Glycol 17 GM BID PRN PRN 12/15 1400 AC PO 03/15 1359 Laboratory Tests 12/16 12/16 0500 0500 Chemistry Vitamin B12 (193 - 986 pg/mL) 899 Vitamin D 25-Hydroxy (30 - 100 ng/mL) 37.7 Folate (3.1 - 17.5 ng/mL) 8.2 TSH (0.42 - 5.47) 4.79 Diagnosis, Assessment Plan Free Text DxA P NotesFree Text DxA P Notes:1. Breast cancer 2. Metastatic malignancy likely recurrent breast 3. Spinal stenosis due to metastaic disease 4. pathological hip fracture 5. Hypercalcemia of maligancy PLanrecommend MRI brain if not already doen due to extensive metastatic disease.s/p right hip surgery on 12/14tissue sent for path results pending for confirmation and molecular tumor profilingspoke with DR Hurtado and Dr Worrell and DR Payne to coordinate care. continue dex 4mg q 8 and will slowly taper after competion of xrt.Plan is short course of IP rehab and OP XRT as she does not have any impending neurological dysfunction and insurance not able to provide ambulance rides for XRT.s/p zometa on 12/14 - monitor calciummonitor creatinine.IVF hydraionpending ca and path at 0905 RPT #:[id number] OF REPORTPRProgress ktkw0325-87-09Y45:57:00G.[id number] for patient vpypUCEPRUEEBBXRKF4798-35-97O04:06:22 [facility] 2023-12-16 14:14:00 [id number] DbnoKLElutVXnHGlU cSphgA6+wmar71yLegm6771-84-95B03:14:00 [facility] ([facility])Orthopaedic Progress NoteREPORT#:[id number] REPORT STATUS: SignedREPORT INITIALIZATION DATE:12/16/23 TIME: 1413 PATIENT: JUSTYNA GAMING UNIT #: [id number]#: [id number] ROOM[facility]BED[facility]DOB: [birth year] AGE: 73 SEX: F ATTEND: Rah Guzman AUTHOR: Josephine Cedillo FNPREPT SERVICE DT/TIME: 03/28/24 1414* ALL edits or amendments must be made on the electronic/computer document * SubjectiveHPI:patient motivated and sitting in bedside chair visiting with daughter, all questions answered and the patient states her pain in controlled; denies SOB andCP and noted to not be wearing oxygen today. Looking to be DC to IPR today ObjectiveVS:Last Documented: Result Date Time Pulse Ox 95 12/15 09 O2 Delivery Room air 12/15 0908 B/P 127/63 12/15 0734 B/P Mean 84.1 12/15 733 Temp 36.6 12/15 07 Pulse 68 12/15 07 Resp 16 12/15 07 O2 Flow Rate 2 12/14 1604 PATIENT WEIGHT: Weight (lb): Weight (oz): Weight (kg): 85.000 Medications:Active Meds + DC'd Last 24 HrsHydrocodone Bitart/Acetaminophen (NORCO 5/325) 1 TAB Q4H PRN PRN PO Tramadol HCl (ULTRAM) 50 MG Q4H PRN PRN PO Enoxaparin Sodium (lovENOX) 30 MG Q12HR SUBQ Cefazolin Sodium (KEFZOL OR ANCEF) 1 GM Q8H IV (DC) Sodium Chloride (SODIUM CHLORIDE) 10 MLMiscellaneous Information (LOVENOX PHARMACY TO DOSE) 1 EACH ASDIR SUBQ (CKD) Diphenhydramine HCl (BENADRYL) 12.5 MG PACU ONCE PRN IV (DC) Fentanyl Citrate (SUBLIMAZE) 100 MCG PACU Q10MIN PRN PRN IV (DC) Fentanyl Citrate (SUBLIMAZE) 50 MCG PACU Q10MIN PRN PRN IV (DC) Hydralazine HCl (APRESOLINE) 5 MG PACU Q10MIN PRN PRN IV (DC) Hydromorphone HCl (DILAUDID) 1 MG PACU Q10MIN PRN PRN IV (DC) Hydromorphone HCl (DILAUDID) 0.5 MG PACU Q5MIN PRN PRN IV (DC) Labetalol HCl (labetalol) 5 MG PACU Q10MIN PRN PRN IV (DC) Lactated Ringer's (LACTATED RINGERS) 1,000 ML .Q24H IV (DC) Meperidine HCl (MEPERIDINE HCL/PF) 12.5 MG PACU ONCE PRN IV (DC) Ondansetron HCl (ZOFRAN) 4 MG PACU ONCE PRN IV (DC) Promethazine HCl (PHENERGAN) 25 MG PACU ONCE PRN PO (DC) Ropivacaine (NAROPIN 0.5% 150 MG/30mL) 150 MG ASDIR PRN LOCAL (DC) Tramadol HCl (ULTRAM) 50 MG PACU ONCE PO (DC) Vancomycin HCl (VANCOMYCIN HCL) 1,000 MG PREOP ONCALL IV (DC) Sodium Chloride (SODIUM CHLORIDE 0.9%) 250 MLMupirocin (BACTROBAN 2% 22 GM OINTMENT) 1 APPLIC BID NASAL Hydrochlorothiazide (hydroCHLOROthiazide) 12.5 MG DAILY PO Losartan Potassium (COZAAR) 25 MG DAILY PO Dexamethasone Sodium Phosphate (DECADRON) 4 MG Q6H IV Hydromorphone HCl (DILAUDID) 0.5 MG Q3H PRN PRN IV Acetaminophen (TYLENOL EXTRA STRENGTH) 1,000 MG PREOP ONCALL PO (CKD) Celecoxib (CeleBREX) 200 MG PREOP ONCALL PO (CKD) Gabapentin (NEURONTIN) 200 MG PREOP ONCALL PO (CKD) Lactated Ringer's (LACTATED RINGERS) 1,000 ML PREOP ONCALL IV Sodium Chloride (SODIUM CHLORIDE) 20 ML ASDIR IV (DC) Albuterol/Ipratropium (DUONEB) 3 ML RTQ4H PRN PRN NEB Azithromycin (ZITHROMAX) 500 MG Q24H IV Sodium Chloride (SODIUM CHLORIDE 0.9%) 250 MLHydralazine HCl (APRESOLINE) 10 MG Q6H PRN PRN IV Acetaminophen (TYLENOL) 650 MG Q4H PRN PRN PO Al Hydrox/Mg Hydrox/Simethicone (MYLANTA) 30 ML Q4H PRN PRN PO Docusate Sodium (COLACE) 100 MG BID PRN PRN PO Sodium Chloride (SODIUM CHLORIDE 0.9%) 1,000 ML .[id number] IV (DC) Free Text Obj NotesFree Text Obj Notes:The patient is alert and oriented All 4 extremities are warm and well-perfused The patient is taking bilateral equal breath efforts No petechiae, rashes, or adenopathy Right Lower extremity: Mepilex AG incisional dressing is clean, dry, and intact Patient is mildly tender to palpation around the incisions Sensation is intact to light touch throughout extremity Neurovascular intact There is a 2+ DP pulse Diagnosis, Assessment PlanFree text A P:Start date: 12/15/23 Dr. Hurtado Post-procedure diagnosis:right pathologic femoral neck fracture Procedures performed:Right hip hemiarthroplasty Post op course:-WBAT operative right lower extremity with posterior hip precautions-DVT ppx - per primary, recommend Lovenox or ASA 325mg BID-Antibiotics - SCIP-OK to d/c when cleared from PT at 1419 at 2207 RPT #:[id number] OF REPORTPRProgress oban1315-05-22Q93:14:00G.[id number] for patient hucxMXTRTRSUAYZWNW2575-64-42S83:20:11 [facility] 2023-12-16 13:53:00 [id number]+PKBaK OnsA6PitW5u0iNUHx Ur1ZqR+al69aiEPmrzH9623-37-40L67:53:00 [facility] Preadmission ScreenREPORT#: REPORT STATUS:DATE:12/16/23 TIME: 135 PATIENT: JUSTYNA GAMING UNIT #: ROOM: BED:: 49 AGE: 73 SEX: F ATTEND: Fern Mata MDPROJECTED ADM AUTHOR: Fern Mata MDREP SRV REP SRV TM: 1353* ALL edits or amendments must be made on the electronic/computer document * IRF Preadmission Screen Information From [facility] PASS PAS documentation:The data set between the solid lines has been imported from [facility] PAS documentation. PREADMISSION INFORMATION: DEMOGRAPHICS: Assessment date: 12/16/23Assessment time: 1120Patient has an Advanced Directive: NoContent of advance directive/living will/plan of care: Copy of advance directive on chart: Referring physician: [facility] provider: Consulting physician(s): FERN VARGAS-PMR LEANNA FRAZIER-TEVIN.ONC. ,BLANCO-NEUROSURGERY ALIRIO DU-ORTHOPEDICReferral contact name: KATLYN Enamorado contact number: Referring setting: Acute hospitalRoom number: 434 IMPAIRMENT GROUP: Impairment group: Unilateral hip fracture Etiologic diagnosis: SUBCAPITAL RIGHT FEMORAL FRACTURE WITH SUPERIOR DISPLACEMENT REVIEW OF MED CONDITIONS: Date of onset: 12/15/23Current surgery date and type: 12/14 Right hip hemiarthroplastyActive comorbid conditions: METASTATIC VERTEBRAL METS, PARTIAL CORD COMPRESSION,HYPERCALCEMIA, HTN, ASTHMA, PNEUMONIA, BREAST CANCER, SPINAL STENOSISPast medical and surgical history: hypertension, hypothyroidism, asthma, spinal stenosis and breast cancerHad major surgery within 100 days of admission: YesRisk for medical/clinical complications: Anemia, BP fluctuation, Cardiac instability, Constipation, DVT, Depression, Incisional dehiscence, Infection, Injury d/t falls, Nutritional compromise, Pain, Skin breakdownAcute hospital stay summary: Justyna Gaming is a 73-year-old female patient that presented to [facility] ED on 12/12 with a past medical history of hypertension, hypothyroidism, asthma, spinal stenosis and breast cancer with complaint of inability to walk of about 90 days duration with sudden episode of right hip pain. Imaging demonstrated right hip fracture and also right femoral fracture. She is now s/p right hemiarthroplasty and also with vertebral mets with multiple bone lesions, partial cord compression due to epidural mass with plan for outpatient XRT to be started post needing acute IRF recovery. She also has hypercalcemia, HTN, asthma, pneumonia pain. Patient is improving but stillneeding close medical management to monitor vital signs, labs, DVT prophylaxis, pain management, wound care, and to maintain bowel and bladder continence. She is receiving IV Decadron q 6H IV Zithromax daily. She lives home alone and prior to hospitalization was modified independent using a cane or rollator and performing all self-care. Due to onset of weakness and acute functional decline,PT, OT, and Rehab were consulted. She is currently needing minimal to moderate assistance for function mobility and ADLs. Patient will require IRF admission aswell as continued medical management by a multidisciplinary team. Patient is motivated, willing and able to participate in 3 hours of therapy per day, 5 daysper week with the goal of regaining functional independence and returning home with family. Patient's current functional status has been impacted by weakness and decreased functional mobility. The functional limitations and decline, as described above, increase burden of care for the family and raise the risk of potential falls at home, resulting in injury and subsequent re-hospitalization. PREADMIT VITALS: Date/Time 12/16/23 0734 Temp F 97.9 Temp C Pulse 68 RR 16 BP 127/63 SPO2% 95 Ht ft 5 Ht in 3 Wt lbs 187.000 BMI 33.1 SUPPORTING DIAGNOSTICS/LABS/RADIOLOGY/CARDIOLOGY: Date: 12/16/23 12/15/23 WBC: 11.0 HGB: 10.4 HCT: 31.2 Ca: 8.3 Na: 137 K+: 4.0 Glu: 105 Mg: BUN: 41 Creat: 1.4 Tot protein: 6.2 Alb: 3.20 PTT: PT: INR: PLT: 180 Additional labs: Cultures: Imagin/27 RT HIP XR: A hip prosthesis is identified. No new fracture is identified. There is air in the soft tissues, consistent with recent surgery. Metastatic disease to the bones is again demonstrated. 12/13 MRIT-SPINE: Findings consistent with extensive metastatic involvement seen throughout the thoracic spine. There is significant epidural component at T8 seen left ventral to the thecal sac and left laterally with perhaps minimal cord compression and there is a left paracentral ventral epidural component identified at T7 without definite cord compression. Multilevel spondylosis is also seen resulting compromise of the canal at T9-T10 and nfR61-A83 12/13 CT RT LOWER EXTR: Extensive lytic osseous metastatic disease. Acute pathologic subcapital right femoral neck fracture. Subacute appearing right superior and inferior pubic rami fractures. 12/12 CT CHEST: Markedly severe diffuse predominantly lytic osseous metastatic disease. At T7-T9, there is associated mass within spinal canal resulting in severe spinal canal stenosis. Acute pathologic subcapital right femoral neck fracture. Acute appearing fracture of coracoid process of right scapula. Subacute appearing right superior and inferior pubic rami fractures. Mediastinal and right hilar lymphadenopathy. Findings consistent with mild pulmonary edema and air trapping. Atelectasis and/or pneumonia in right lower lobe. Indeterminate liver lesion suspicious for metastasis. Enhancing right renal lesion suspicious for renal cell carcinoma. Left renal lesion does not meet criteria for enhancement suggesting hyperdense cyst 12/12 XR HIP/PELVIS: Subcapital right femoral fracture.Other supporting diagnostics: RESPIRATORY STATUS: Respiratory treatments: O2 liters per minute: Respiratory status: NEUROLOGIC STATUS: Neurologic status: Alert, Oriented to person, Oriented to place, Oriented to time, Oriented to situation, Follows simple commands, Follows complex commandsPatient's mood and behavior: AppropriateHand dominance: Right BOWEL/BLADDER: Continent of bladder for developmental age: YesNumber of bladder accidents in last 48 hours: Catheter type: Insertion date: Bladder aids: Bladder comment: Continent of bowel for developmental age: YesNumber of bowel accidents in last 48 hours: Date of last BM: Colostomy: NoIleostomy: NoBowel aids: Bowel comment: SKIN: Skin alteration: Present/Exists SKIN ALTERATION 1: Type: Surgical woundLocation: Hip rightStage: Description: Instance list status: Active Skin alteration details: wound base not visible Wound surrounding tissue appearance: [place] Wound surrounding tissue temperature: Warm Wound closure: Intact Wound drainage amount: None Dressing status: Intact Dressing type: silver mepilex Packing removed: No Alteration photographed: No Wound dressing change date: 12/15/23 SKIN ALTERATION 2: Type: Location: Stage: Description: SKIN ALTERATION 3: Type: Location: Stage: Description: SKIN ALTERATION 4: Type: Location: Stage: Description: EATING/NUTRITIONAL: Nutritional intake: PO regular foodEating compensatory strategies: Medication administration: IV, Subcutaneous, Topicals, Medications whole REHAB NEEDS: Special rehabilitation needs: IV/PICC/CVC, Intravenous therapy, Respiratory therapySpecial rehabilitation precautions: Hip, Safety/fallRehabilitation precaution detail: WEAKNESS FUNCTIONAL ASSESSMENT: FUNC. TASK PRIOR LOF CURRENT LOF EXPECTED LOF Bathing Independent Total assistance Setup/cleanup ONLY U.B. Dressing Independent Supervise/touch asst Independent L.B. Dressing Independent Total assistance Setup/cleanup ONLY Bed/Ch Transf. Independent Partial/moderate asst Independent Toilet Transfer Independent Partial/moderate asst Independent Stairs Independent Total assistance Setup/cleanup ONLY Locomotion Independent Partial/moderate asst Independent Locomotion prior device use: RollatorDescription of prior level of locomotion: USED ROLLATOR OR CANELocomotion current device: Standard walkerLocomotion current distance traveled without a rest break: 3 STEPSDescription of current level of locomotion: PATIENT STOOD FROM EOB WITH MIN A WITH RW AND TOOK 2-3 LATERAL STEPS WITH RW TO HEAD OF BED. Description of expected level of locomotion: Language and Cognition: Add'l functional comment: Bed Mobility: Moderate Assistance Scooting in Bed, Up: Moderate Assistance Scooting in Bed, Down: Minimal Assistance Scooting to edge of bed, Right: Minimal Assistance Supine to Sit: Moderate Assistance Sit to Supine: Moderate Assistance Sit to Stand: Minimal Assistance Prior device use: SP canePrior device use additional information: PRE-HOSPITAL: Pre-hospital services utilized: NoneOccupation/Profession: RetiredEducation history: Return to work/school plan: Marital status: WidowedHobbies/leisure activities: BOOKKEEPERPrior living situation: HomeLiving with: AloneLiving with comment: ANTICIPATED DC PLAN/POST IRF: Primary support contact: KATIUSKA GAMINGRelationship to patient: ALEXzoiemarcus number 1: [phone] number 2: Caregiver availability: 24 hours a dayCaregiver can provide: Physical assistancePatient/caregiver goals/preferences: TO DO REHAB THEN OUTPATIENT XRTExpected discharge destination: HomeExpected discharge physical layout: 3RD FLOOR APARTMENTNumber of external stairs: Number of internal stairs: Railing details: Grab bars location: Barriers to discharge: NoneOptions discussed with patient: YesOptions discussed with caregiver: YesPatient agrees with program requirements: Yes ACTIVITY TOLERANCE: Current treatment interventions: Occupational therapy, Physical therapy, Respiratory therapyPatient able to tolerate 3 hours of therapy a day: YesPatient able to tolerate 15 hours of therapy a week: Altered therapy schedule comment: ACUTE INPATIENT REHAB PLAN: Estimated length of stay in days: 15Anticipated services in acute inpatient rehab: Rehab nursing 12/04, cooperative manager,Occupational therapy, Physical therapy, Dietitian, Respiratory therapyJfk [facility] documents reviewed prior to admission decision: Acute History/Physical, Consult notes, Operative reports, Progress notes, Lab/diagnostics, Therapy notes, Vital signs, Other ancillary notes CRS ELECTRONIC SIGNATURE: CRS #1 electronic signature: BI VALDIVIA credentials: LINDARNDate: 12/16/23Time: 1158 CRS #2 electronic signature: CRS credentials: Date: Time: CRS #3 electronic signature: CRS credentials: Date: Time: Provider Pre-Admit SummaryAcute IP rehab admit: criteria metMD determinationBased upon my evaluation and review of the supporting assessment documentation and consultation with the preadmission solar site assessment specialist, I have determined, prior to admitting this patient, that there is reasonable expectation that at the time of admission to the IRF, the patient's medical management and rehabilitation needs require an inpatient stay and close physician involvement. Patient can be expected to actively participate in, and benefit from, and intensive rehab therapy program whose intensity is not provided in lower levels of care. Significant barriers that can only be addressed in an acute inpatient rehab program, including, but not limited to: Complex acute rehab needs: Custom therapy tx plan, Mgt of complex Co-morb, Multiple consulting MDs, New medical diagnosis, Live alone/prev independ, Postsurgery req mgt/care, Complex pain management at 1355 RPT #:[id number] OF REPORTCLClinical amfi5131-94-09K23:53:00G.[id number] for patient pvcdEBFRTCIGODZBQB4265-74-24Z13:55:44 [facility] 2023-12-16 11:36:00 [id number]/L+Hqq/ibuyiOpw6x+pEiYLWxvpT TMZZeyyLQPe0doCyZ J3K5cPbXFSC0sZ9Qvai5640-02-85H25:36:00 [facility] ([facility])Hospitalist Discharge SummaryREPORT#:[id number] REPORT STATUS: SignedREPORT INITIALIZATION DATE:12/16/23 TIME: 1135 PATIENT: JUSTYNA GAMING UNIT #: [id number]#: [id number] [place] [facility] [place] [birth year] AGE: 73 SEX: F ATTEND: Rah Guzman MDADM AUTHOR: Rah Guzman MDREPT SERVICE DT/TIME: 12/16/23 113* ALL edits or amendments must be made on the electronic/computer document * General Information Free Text General NotesFree Text General Notes:NO COMPLAINTS, AWAITS TRANSFER TO IRF ONCE ACCEPTED. Date of admission:Observation Start Date: Date of admission: 12/13/23 Discharge date: 12/16/23Discharge diagnosis:SEE BELOW. Hospital course:73 WF WITH HTN, BREAST CANCER, S/P CHEMO/XRT IN 2013, NOW ADMITTED FOR RIGHT HIPPAIN, FOUND TO HAVE PATHOLOGIC FRACTURE, AND NEW DIFFUSE VERTEBRAL METS WITH EPIDURAL MASS AND PARTIAL CORD COMPRESSION. SEEN ORTHO/ONC/NS/REHAB, AND PLAN FOR IRF COURSE AND XRT DURING IRF, AND OUTPATIENT CHEMO. PATH REPORT IS PENDINGAT THIS TIME BUT SUSTECTED METS FROM BREAST CANCER.Pt. condition on discharge: improved, stable Free Text DxA P NotesFree text DxA P notes:Right femoral PATHOLOGIC Fracture/Right hip fracture, S/P HEMIARTHROPLASTY - ORTHO SEEN, ASK REHAB/CM TO EVAL FOR IRF MET VERTEBRAL METS/Multiple lytic bone lesions/PARTIAL CORD COMPRESSION DUE TO EPIDURAL MASS - NS/ONC SEEN, PLAN FOR XRT I/P WHILE IN REHAB Hypercalcemia OF MALIGNANCY - RESOLVED WITH ZOMETA X1 AND IVF BY ONC Hypertension - STABLE, CONT HOME MEDS (COZAAR/HCTZ) Asthma/pneumonia - DONE WITH ABX History of breast cancer WITN BNY METS - NEEDS O/P CHEMO BY ONC, PATH PENDING DVT PX - LOVENOX 30 BID PlansReviewed imaging reports, concerning for metastatic processOrthopedic consulted in the ERConsider oncology consult in the morningAnalgesia as toleratedIv zithromaxDuoneb breathing treatment q4h prnSupp O2 as neededIV fluid, monitor serum calcium. PTH orderedIV prn hydralazine for elevated blood pressure, resume home medications when updated Further care per clinical courseCODE STATUS: full code. 12/14- s/p right hip arthroplasty for pathologic hip fracture. Multiple mets of the spine. XRT plans on going emergency radiation treatment ROSA while in the hospital for 5 treatments. Med Rec Med RecDischarge meds:Continue taking these medications:ALBUTEROL (ALBUTEROL HFA 90 MCG/ACT) (Unknown Strength) INHALER Unknown Dose Start taking the following new medications:ENOXAPARIN (LOVENOX) 30 MG/0.3 ML DISP.SYRIN 30 MILLIGRAM SUBCUTANEOUS EVERY 12 HOURS. Days = 30 No Refills LOSARTAN (COZAAR) 25 MG TAB 25 MILLIGRAM ORAL DAILY. Days = 30 Qty = 30 No Refills ACETAMINOPHEN (TYLENOL) 325 MG TAB 650 MILLIGRAM ORAL EVERY 4 HOURS NEEDED. as needed for PAIN SCALE 1-3/TEMP ABOVE 100F Days = 30 No Refills Hydrocodone/Acetaminophen (HYDROcodone/APAP 5/325) 5 MG-325 MG TAB 1 TABLET ORAL EVERY 4 HOURS NEEDED. as needed for PAIN SCALE 4-6, SECOND LINE Days = 14 No Refills traMADol (ULTRAM) 50 MG TAB 50 MILLIGRAM ORAL EVERY 4 HOURS NEEDED. as needed for PAIN SCALE 4-6 Days = 30 No Refills HYDROCHLOROTHIAZIDE (HCTZ) 12.5 MG CAP 12.5 MILLIGRAM ORAL DAILY. Days = 30 Qty = 30 No Refills DOCUSATE SODIUM (COLACE) 100 MG CAP 100 MILLIGRAM ORAL TWICE DAILY NEEDED. as needed for CONSTIPATION Days = 30 No Refills dexAMETHasone (dexAMETHasone) 6 MG TAB 6 MILLIGRAM ORAL THREE TIMES A DAY. Days = 14 Qty = 42 No Refills ObjectiveVS/I OLast Documented: Result Date Time Pulse Ox 95 12/15 733 B/P 127/63 12/15 733 B/P Mean 84.1 12/15 0634 Temp 97.9 12/15 733 Pulse 68 12/15 0734 Resp 16 12/15 07 O2 Delivery Room air 12/15 0432 O2 Flow Rate 2 12/14 1604 General appearance: chronically ill appearing, obese, alert, awakeHead/Eyes: WEARING EYEGLASSESNeck: no JVDCardiovascular: normal heart sounds, regular rate rhythmRespiratory: aerating well, clear to auscultation, symmetric expansionAbdomen: obese, non-tender, normal bowel sounds, softExtremities: TRACE PRETIBIAL EDEMAMusculoskeletal: decreased ROMNeuro/PRODUCT SAFETY LEAD: alert, oriented X 3Skin: normal colorPsychiatry: normal affect ResultsFindings/Data:Laboratory Tests: 12/15 0539 Chemistry Sodium (134 - 147 mEq/L) 137 Potassium (3.4 - 5.0 mEq/L) 4.0 Chloride (100 - 108 mEq/L) 104 Carbon Dioxide (21 - 33 mEq/l) 24 Anion Gap (0 - 20) 13 BUN (7 - 25 mg/dL) 41 H Creatinine (0.6 - 1.3 mg/dL) 1.4 H Glomerular Filtr Rate (70 - 80) 39.5 L Glucose (77 - 141 mg/dL) 105 Calcium (8.0 - 10.5 mg/dL) 8.3 Hematology WBC (4.5 - 11.0 x10 3/uL) 11.0 RBC (3.54 - 5.02 x10 6/uL) 3.43 L Hgb (11.0 - 15.0 g/dL) 10.4 L Hct (33.0 - 45.0 %) 31.2 L MCV (81.0 - 99.0 fL) 91.0 MCH (27.0 - 33.0 pg) 30.3 MCHC (33.0 - 37.0 g/dL) 33.3 RDW (11.5 - 14.5 %) 14.2 Plt Count (150 - 400 x10 3/uL) 180 MPV (7.0 - 9.0 fL) 11.2 H Neut % (Auto) (56.0 - 77.0 %) 86.4 H Lymph % (Auto) (14.0 - 32.0 %) 5.9 L B[place] % (Auto) (4.8 - 9.0 %) 7.0 Eos % (Auto) (0.3 - 3.7 %) 0.0 L Baso % (Auto) (0.0 - 2.0 %) 0.1 Neut # (Auto) (2.0 - 7.6 x10 3/uL) 9.46 H Lymph # (Auto) (1.0 - 3.8 x10 3/uL) 0.65 L [place] # (Auto) (0.1 - 0.8 x10 3/uL) 0.77 Eos # (Auto) (0.0 - 0.2 x10 3/uL) 0.00 Baso # (Auto) (0.0 - 0.2 x10 3/uL) 0.01 Abs Immat Gran (auto) (0.00 - 0.03 x10 3/uL) 0.07 H Immature Gran % (0.0 - 2.0 %) 0.6 Nucleated RBC % (0 - 0 %) 0.0 Nucleated RBCs # (Man) (0.0 - 0.1 x10 3/uL) 0.00 Free Text Obj NotesFree Text Obj Notes:General/Const Awake, Alert, orientedHENT Head atraumatic, normocephalic, ears/nose/throat airway patent, TMs clear bilaterallyMS Neck Neck Supple, no swelling, no tenderness to palpationResp/Chest CTAB, No respiratory distress, no rales, no rhonchi, no wheezingCardiovascular Normal rate, regular rhythm, heart sounds. No rubs murmurs gallopsAbdomen/GI Normal bowel sounds, soft, nontender, nondistended. No rebound or guardingMSNo bony deformity, 2+ DP pulses bilaterally. Some mild swelling to the right lower extremitySkin Skin Warm, Dry, no abrasions, rashes, lacerationsNeurologic Neurologic Oriented X3, Speech NL, no focal neuro deficits, CN 2-12 intact, 5/5 strength, sensation intact Discharge Instructions PCPPCP follow-up:PCP: No Primary or Family Physician Discharge to: Inpatient Rehab FacilityAdditional Discharge Routines: PCP Follow-UpDiet: Low SodiumActivity: As Tolerated Follow-up AppointmentsPCP follow-up: PCP: No Primary or Family Physician PCP follow up timeframe: In 2-3 weeks Special instructions:PLEASE NOTIFY THE ATTENDING ON ARRIVAL TO THE REHAB UNIT.Consulting provider 1: Provider 1: Leanna Villatoro MD Specialty: Hematology and Oncology Consult follow up timeframe: In 2-3 weeks Quality: Discharge Advanced Care Plan 65 or OlderDiscussed with: patient, HER NURSE at 1142 RPT #:[id number] OF REPORTDSDischarge geycbws2298-86-59Y37:36:00G.[id number] for patient qidyHWSVSWPMUMLPZJ0520-77-22P68:42:43 [facility] 2023-12-16 10:11:00 [id number]+kP/dx6xkTiqf8rJZflFRmlwWi YHTmfH4EKkVQS6CMi FpThWw6ij+8RFSUWrwT1536-17-76I60:11:00 [facility] ([facility])Hospitalist Progress NoteREPORT#:[id number] REPORT STATUS: SignedREPORT INITIALIZATION DATE:12/16/23 TIME: 101 PATIENT: JUSTYNA GAMING UNIT #: [id number]#: [id number] [address] [birth year] AGE: 73 SEX: F ATTEND: Rah Guzman MDADM AUTHOR: Rah Guzman MDREPT SERVICE DT/TIME: 12/16/23 1011* ALL edits or amendments must be made on the electronic/computer document * SubjectiveChief complaint:NO COMPLAINTS, SITTING IN CHAIR, LIVES ALONE, AND HAS SOME STRENGTH IN LEGS, INFORMED OF IRF EVAL, AND XRT BEFORE D/C WHILE IN REHAB.HPI:Patient is a 73 years old lady with past medical history of hypertension, hypothyroidism, asthma, spinal stenosis and breast cancer. [facility] of inability to walk of about 90 days duration. She also noted sudden episode of right hip pain. This pain is worse with walking. Pain became unbearable and it was difficult for patient to ambulate. She deniesany history of fall. Imaging demonstrated right hip fracture and also right femoral fracture. Orthopedic unit has been consulted. Patient is being admitted for further evaluation of suspected pathological fracture. She has a history of breast cancer. Her last visit to her doctor was in April 2023. Objective GeneralMedications:Active Meds + DC'd Last 24 HrsEnoxaparin Sodium (lovENOX) 30 MG Q12HR SUBQ Cefazolin Sodium (KEFZOL OR ANCEF) 1 GM Q8H IV (DC) Sodium Chloride (SODIUM CHLORIDE) 10 MLMiscellaneous Information ([facility] TO DOSE) 1 EACH ASDIR SUBQ (CKD) Sodium Chloride (SODIUM CHLORIDE 0.9%) 1,000 ML .[id number] IV (DC) Diphenhydramine HCl (BENADRYL) 12.5 MG PACU ONCE PRN IV (DC) Fentanyl Citrate (SUBLIMAZE) 100 MCG PACU Q10MIN PRN PRN IV (DC) Fentanyl Citrate (SUBLIMAZE) 50 MCG PACU Q10MIN PRN PRN IV (DC) Hydralazine HCl (APRESOLINE) 5 MG PACU Q10MIN PRN PRN IV (DC) Hydromorphone HCl (DILAUDID) 1 MG PACU Q10MIN PRN PRN IV (DC) Hydromorphone HCl (DILAUDID) 0.5 MG PACU Q5MIN PRN PRN IV (DC) Labetalol HCl (labetalol) 5 MG PACU Q10MIN PRN PRN IV (DC) Lactated Ringer's (LACTATED RINGERS) 1,000 ML .Q24H IV (DC) Meperidine HCl (MEPERIDINE HCL/PF) 12.5 MG PACU ONCE PRN IV (DC) Ondansetron HCl (ZOFRAN) 4 MG PACU ONCE PRN IV (DC) Promethazine HCl (PHENERGAN) 25 MG PACU ONCE PRN PO (DC) Ropivacaine (NAROPIN 0.5% 150 MG/30mL) 150 MG ASDIR PRN LOCAL (DC) Tramadol HCl (ULTRAM) 50 MG PACU ONCE PO (DC) Vancomycin HCl (VANCOMYCIN HCL) 1,000 MG PREOP ONCALL IV (DC) Sodium Chloride (SODIUM CHLORIDE 0.9%) 250 MLMupirocin (BACTROBAN 2% 22 GM OINTMENT) 1 APPLIC BID NASAL Cefazolin Sodium (KEFZOL OR ANCEF) 2 GM PREOP ONCALL IV (DC) Hydrochlorothiazide (hydroCHLOROthiazide) 12.5 MG DAILY PO Losartan Potassium (COZAAR) 25 MG DAILY PO Dexamethasone Sodium Phosphate (DECADRON) 4 MG Q6H IV Hydromorphone HCl (DILAUDID) 0.5 MG Q3H PRN PRN IV Acetaminophen (TYLENOL EXTRA STRENGTH) 1,000 MG PREOP ONCALL PO (CKD) Celecoxib (CeleBREX) 200 MG PREOP ONCALL PO (CKD) Gabapentin (NEURONTIN) 200 MG PREOP ONCALL PO (CKD) Lactated Ringer's (LACTATED RINGERS) 1,000 ML PREOP ONCALL IV Sodium Chloride (SODIUM CHLORIDE) 20 ML ASDIR IV (DC) Albuterol/Ipratropium (DUONEB) 3 ML RTQ4H PRN PRN NEB Azithromycin (ZITHROMAX) 500 MG Q24H IV Sodium Chloride (SODIUM CHLORIDE 0.9%) 250 MLHydralazine HCl (APRESOLINE) 10 MG Q6H PRN PRN IV Acetaminophen (TYLENOL) 650 MG Q4H PRN PRN PO Al Hydrox/Mg Hydrox/Simethicone (MYLANTA) 30 ML Q4H PRN PRN PO Docusate Sodium (COLACE) 100 MG BID PRN PRN PO Sodium Chloride (SODIUM CHLORIDE 0.9%) 1,000 ML .[id number] IV Physical ExamGeneral appearance: chronically ill appearing, obese, alert, awakeHead/Eyes: WEARING EYEGLASSESNeck: no JVDCardiovascular: regular rate rhythmRespiratory: aerating well, clear to auscultation, symmetric expansionAbdomen: obese, non-tender, normal bowel sounds, softExtremities: TRACE PRETIBIAL EDEMAMusculoskeletal: decreased ROMNeuro/PRODUCT SAFETY LEAD: alert, oriented X 3Skin: normal colorPsychiatry: normal affect ResultsFindings/Data:Laboratory Tests 12/15 0539 Chemistry Sodium (134 - 147 mEq/L) 137 Potassium (3.4 - 5.0 mEq/L) 4.0 Chloride (100 - 108 mEq/L) 104 Carbon Dioxide (21 - 33 mEq/l) 24 Anion Gap (0 - 20) 13 BUN (7 - 25 mg/dL) 41 H Creatinine (0.6 - 1.3 mg/dL) 1.4 H Glomerular Filtr Rate (70 - 80) 39.5 L Glucose (77 - 141 mg/dL) 105 Calcium (8.0 - 10.5 mg/dL) 8.3 Laboratory Tests 12/15 0539 Hematology WBC (4.5 - 11.0 x10 3/uL) 11.0 RBC (3.54 - 5.02 x10 6/uL) 3.43 L Hgb (11.0 - 15.0 g/dL) 10.4 L Hct (33.0 - 45.0 %) 31.2 L MCV (81.0 - 99.0 fL) 91.0 MCH (27.0 - 33.0 pg) 30.3 MCHC (33.0 - 37.0 g/dL) 33.3 RDW (11.5 - 14.5 %) 14.2 Plt Count (150 - 400 x10 3/uL) 180 MPV (7.0 - 9.0 fL) 11.2 H Neut % (Auto) (56.0 - 77.0 %) 86.4 H Lymph % (Auto) (14.0 - 32.0 %) 5.9 L Barrow % (Auto) (4.8 - 9.0 %) 7.0 Eos % (Auto) (0.3 - 3.7 %) 0.0 L Baso % (Auto) (0.0 - 2.0 %) 0.1 Neut # (Auto) (2.0 - 7.6 x10 3/uL) 9.46 H Lymph # (Auto) (1.0 - 3.8 x10 3/uL) 0.65 L Barrow # (Auto) (0.1 - 0.8 x10 3/uL) 0.77 Eos # (Auto) (0.0 - 0.2 x10 3/uL) 0.00 Baso # (Auto) (0.0 - 0.2 x10 3/uL) 0.01 Abs Immat Gran (auto) (0.00 - 0.03 x10 3/uL) 0.07 H Immature Gran % (0.0 - 2.0 %) 0.6 Nucleated RBC % (0 - 0 %) 0.0 Nucleated RBCs # (Man) (0.0 - 0.1 x10 3/uL) 0.00 Radiology data:Recent Impressions:RADIOLOGY - XR HIP W/PEL UNI 2+V RT 12/14 1104 Report Impression - Status: SIGNED Entered: 12/15/2023 1300 IMPRESSION: A hip prosthesis is identified. No new fracture is identified. Thereis air in the soft tissues, consistent with recent surgery. Metastatic disease to the bones is again demonstrated. Impression By: StephaniePMT - Timothy Grissom M.D. Free Text Obj NotesFree Text Obj Notes:General/Const Awake, Alert, orientedHENT Head atraumatic, normocephalic, ears/nose/throat airway patent, TMs clear bilaterallyMS Neck Neck Supple, no swelling, no tenderness to palpationResp/Chest CTAB, No respiratory distress, no rales, no rhonchi, no wheezingCardiovascular Normal rate, regular rhythm, heart sounds. No rubs murmurs gallopsAbdomen/GI Normal bowel sounds, soft, nontender, nondistended. No rebound or guardingMSNo bony deformity, 2+ DP pulses bilaterally. Some mild swelling to the right lower extremitySkin Skin Warm, Dry, no abrasions, rashes, lacerationsNeurologic Neurologic Oriented X3, Speech NL, no focal neuro deficits, CN 2-12 intact, 5/5 strength, sensation intact Diagnosis, Assessment Plan Free Text DxA P NotesFree text DxA P notes:Right femoral PATHOLOGIC Fracture/Right hip fracture, S/P HEMIARTHROPLASTY - ORTHO SEEN, ASK REHAB/CM TO EVAL FOR IRF MET VERTEBRAL METS/Multiple lytic bone lesions/PARTIAL CORD COMPRESSION DUE TO EPIDURAL MASS - NS/ONC SEEN, PLAN FOR XRT I/P WHILE IN REHAB Hypercalcemia OF MALIGNANCY - RESOLVED WITH TRT X1 BY ONC Hypertension - STABLE Asthma/pneumonia - ON ABX History of breast cancer WITN BNY METS - PATH PENDING DVT PX - LOVENOX 30 BID PlansReviewed imaging reports, concerning for metastatic processOrthopedic consulted in the ERConsider oncology consult in the morningAnalgesia as toleratedIv zithromaxDuoneb breathing treatment q4h prnSupp O2 as neededIV fluid, monitor serum calcium. PTH orderedIV prn hydralazine for elevated blood pressure, resume home medications when updated Further care per clinical courseCODE STATUS: full code. 12/14- s/p right hip arthroplasty for pathologic hip fracture. Multiple mets of the spine. XRT plans on going emergency radiation treatment ROSA while in the hospital for 5 treatments. at 1016 [facility] #:[id number] OF REPORTPRProgress vefi8816-97-59J09:11:00G.[id number] for patient suihCSLLOEMRPOSMJK1272-69-56T85:17:42 [facility] 2023-12-15 22:49:00 [id number]mKWO 94HPYdo7UBvYRvWwp sVSWoXo/3sKGhQsPylb9732-29-94O21:49:00 [facility])Tevin/Oncology Progress NoteREPORT#:[id number] REPORT STATUS: SignedREPORT INITIALIZATION DATE:12/15/23 TIME: 2248 PATIENT: JUSTYNA GAMING UNIT #: [id number]#: [id number] [address] [birth year] AGE: 73 SEX: F ATTEND: Mirna Delcid DOADM AUTHOR: Leanna Villatoro MDREPT SERVICE DT/TIME: 12/15/232248* ALL edits or amendments must be made on the electronic/computer document * See AddendumSubjectiveChief Complaint:metastatic malignancy pathological hip fracturespinal cord compression from epidural mass Objective Physical ExamVS:Vital Signs Date Temp Pulse Resp B/P B/P Mean Pulse Ox FiO2 12/14 36.3-36.9 54-85 8-20 129-213/57-88 83.5-101.9 90-100 Last Documented: Result Date Time Pulse Ox 97 12/14 2156 O2 Delivery Room air 12/14 2156 B/P 144/62 12/15 2023 B/P Mean 89.2 12/15 2023 Temp 36.6 12/15 2023 Pulse 58 12/15 2023 Resp 12 12/15 2023 O2 Flow Rate 2 12/14 1604 General appearance: alert, awake, orientedHEENT: pupils reactive to lightCardiovascular: regular rate and rhythm, normal heart sounds, normal S1/I6Dwbudadvxtv: aerating well, symmetric expansion, no distressAbdomen: non-tender, softExtremities: post right hip surgeryNeuro/PRODUCT SAFETY LEAD: alert, normal speech, no motor deficits Current MedicationsMedications:Active Meds + DC'd Last 24 HrsEnoxaparin Sodium (lovENOX) 30 MG Q12HR SUBQ Cefazolin Sodium (KEFZOL OR ANCEF) 1 GM Q8H IV Sodium Chloride (SODIUM CHLORIDE) 10 MLMiscellaneous Information ([facility]Y TO DOSE) 1 EACH ASDIR SUBQ (CKD) Sodium Chloride (SODIUM CHLORIDE 0.9%) 1,000 ML .A40V73I IV (DC) Phenylephrine HCl (Phenylephrine PF 500 mcg/5 mL Inj) 0 .STK-MED ONE .ROUTE (DC) Glycopyrrolate (GLYCOPYRROLATE) 0 .STK-MED ONE .ROUTE (DC) Diphenhydramine HCl (BENADRYL) 12.5 MG PACU ONCE PRN IV (DC) Fentanyl Citrate (SUBLIMAZE) 100 MCG PACU Q10MIN PRN PRN IV (DC) Fentanyl Citrate (SUBLIMAZE) 50 MCG PACU Q10MIN PRN PRN IV (DC) Hydralazine HCl (APRESOLINE) 5 MG PACU Q10MIN PRN PRN IV (DC) Hydromorphone HCl (DILAUDID) 1 MG PACU Q10MIN PRN PRN IV (DC) Hydromorphone HCl (DILAUDID) 0.5 MG PACU Q5MIN PRN PRN IV (DC) Labetalol HCl (labetalol) 5 MG PACU Q10MIN PRN PRN IV (DC) Lactated Ringer's (LACTATED RINGERS) 1,000 ML .Q24H IV (DC) Meperidine HCl (MEPERIDINE HCL/PF) 12.5 MG PACU ONCE PRN IV (DC) Ondansetron HCl (ZOFRAN) 4 MG PACU ONCE PRN IV (DC) Promethazine HCl (PHENERGAN) 25 MG PACU ONCE PRN PO (DC) Ropivacaine (NAROPIN 0.5% 150 MG/30mL) 150 MG ASDIR PRN LOCAL (DC) Tramadol HCl (ULTRAM) 50 MG PACU ONCE PO (DC) Hydromorphone HCl (DILAUDID) 0 .STK-MED ONE .ROUTE (DC) Fentanyl Citrate (SUBLIMAZE) 0 .STK-MED ONE .ROUTE (DC) Lidocaine HCl (XYLOCAINE) 0 .STK-MED ONE .ROUTE (DC) Propofol (DIPRIVAN 200MG/20ML INJECTION) 20 ML .STK-MED ONE IV (DC) Rocuronium [place] (ZEMURON) 0 .STK-MED ONE IV (DC) Propofol (DIPRIVAN 1,000MG/100ML) 100 ML .STK-MED ONE IV (DC) Clonidine HCl (CLONIDINE 1000 MCG/10 ML VIAL) 0 .STK-MED ONE .ROUTE (DC) Epinephrine (ADRENALIN CHLORIDE) 0 .STK-MED ONE .ROUTE (DC) Ropivacaine (NAROPIN 0.5% 150 MG/30mL) 0 .STK-MED ONE .ROUTE (DC) Tobramycin Sulfate (NEBCIN 1.2 GM POWDER) 0 .STK-MED ONE .ROUTE (DC) Tranexamic Acid (Cyklokapron) 0 .STK-MED ONE .ROUTE (DC) Vancomycin HCl (VANCOMYCIN HCL) 0 .STK-MED ONE .ROUTE (DC) Ketorolac Tromethamine (TORADOL 30 MG) 0 .STK-MED ONE .ROUTE (DC) Vancomycin HCl (VANCOMYCIN HCL) 1,000 MG PREOP ONCALL IV (CKD) Sodium Chloride (SODIUM CHLORIDE 0.9%) 250 MLAcetaminophen (TYLENOL EXTRA STRENGTH) 0 .STK-MED ONE PO (DC) Cefazolin Sodium (KEFZOL OR ANCEF) 0 .STK-MED ONE IV (DC) Celecoxib (CeleBREX) 0 .STK-MED ONE PO (DC) Gabapentin (NEURONTIN) 0 .STK-MED ONE PO (DC) Sodium Chloride (SODIUM CHLORIDE 0.9%) 250 ML .STK-MED ONE IV (DC) Vancomycin HCl (VANCOMYCIN HCL) 0 .STK-MED ONE IV (DC) Mupirocin (BACTROBAN 2% 22 GM OINTMENT) 0 .STK-MED ONE NASAL (DC) Mupirocin (BACTROBAN 2% 22 GM OINTMENT) 1 APPLIC BID NASAL Cefazolin Sodium (KEFZOL OR ANCEF) 2 GM PREOP ONCALL IV (DC) Hydrochlorothiazide (hydroCHLOROthiazide) 12.5 MG DAILY PO Losartan Potassium (COZAAR) 25 MG DAILY PO Dexamethasone Sodium Phosphate (DECADRON) 4 MG Q6H IV Hydromorphone HCl (DILAUDID) 0.5 MG Q3H PRN PRN IV Acetaminophen (TYLENOL EXTRA STRENGTH) 1,000 MG PREOP ONCALL PO (CKD) Celecoxib (CeleBREX) 200 MG PREOP ONCALL PO (CKD) Gabapentin (NEURONTIN) 200 MG PREOP ONCALL PO (CKD) Lactated Ringer's (LACTATED RINGERS) 1,000 ML PREOP ONCALL IV Sodium Chloride (SODIUM CHLORIDE) 20 ML ASDIR IV Albuterol/Ipratropium (DUONEB) 3 ML RTQ4H PRN PRN NEB Azithromycin (ZITHROMAX) 500 MG Q24H IV Sodium Chloride (SODIUM CHLORIDE 0.9%) 250 MLHydralazine HCl (APRESOLINE) 10 MG Q6H PRN PRN IV Acetaminophen (TYLENOL) 650 MG Q4H PRN PRN PO Al Hydrox/Mg Hydrox/Simethicone (MYLANTA) 30 ML Q4H PRN PRN PO Docusate Sodium (COLACE) 100 MG BID PRN PRN PO Sodium Chloride (SODIUM CHLORIDE 0.9%) 1,000 ML .[id number] IV ResultsFindings/Data:Laboratory Tests 12/15/23 0500:[Embedded Image Not Available] 12/15/23 0017:[Embedded Image Not Available]Laboratory Tests 12/14 0500 Chemistry Sodium (134 - 147 mEq/L) 139 Potassium (3.4 - 5.0 mEq/L) 3.8 Chloride (100 - 108 mEq/L) 106 Carbon Dioxide (21 - 33 mEq/l) 24 Anion Gap (0 - 20) 13 BUN (7 - 25 mg/dL) 29 H Creatinine (0.6 - 1.3 mg/dL) 1.1 Glomerular Filtr Rate (70 - 80) 52.7 L Glucose (77 - 141 mg/dL) 123 Calcium (8.0 - 10.5 mg/dL) 9.9 Total Bilirubin (0.0 - 1.0 mg/dL) 1.00 AST (8 - 34 IUnit/L) 47 H ALT (10 - 49 IUnit/L) 28 Total Alk Phosphatase (20 - 125 IUnit/L) 158 H Total Protein (6.4 - 8.2 g/dL) 6.2 L Albumin (3.4 - 5.0 g/dL) 3.20 L Laboratory Tests 03/27 0017 Hematology WBC (4.5 - 11.0 x10 3/uL) 7.6 RBC (3.54 - 5.02 x10 6/uL) 3.91 Hgb (11.0 - 15.0 g/dL) 11.7 Hct (33.0 - 45.0 %) 34.6 MCV (81.0 - 99.0 fL) 88.5 MCH (27.0 - 33.0 pg) 29.9 MCHC (33.0 - 37.0 g/dL) 33.8 RDW (11.5 - 14.5 %) 14.0 Plt Count (150 - 400 x10 3/uL) 179 MPV (7.0 - 9.0 fL) 11.0 H Neut % (Auto) (56.0 - 77.0 %) 87.1 H Lymph % (Auto) (14.0 - 32.0 %) 9.6 L Barrow % (Auto) (4.8 - 9.0 %) 1.8 L Eos % (Auto) (0.3 - 3.7 %) 0.0 L Baso % (Auto) (0.0 - 2.0 %) 0.3 Neut # (Auto) (2.0 - 7.6 x10 3/uL) 6.64 Lymph # (Auto) (1.0 - 3.8 x10 3/uL) 0.73 L Barrow # (Auto) (0.1 - 0.8 x10 3/uL) 0.14 Eos # (Auto) (0.0 - 0.2 x10 3/uL) 0.00 Baso # (Auto) (0.0 - 0.2 x10 3/uL) 0.02 Abs Immat Gran (auto) (0.00 - 0.03 x10 3/uL) 0.09 H Immature Gran % (0.0 - 2.0 %) 1.2 Nucleated RBC % (0 - 0 %) 0.0 Nucleated RBCs # (Man) (0.0 - 0.1 x10 3/uL) 0.00 Microbiology Date/Time Procedure - Status Source Growth 12/14 528 [facility] Surveillance Screen - COMP NASAL Radiology data:Recent Impressions:RADIOLOGY - XR PELVIS 1/2 VIEWS 12/14 0833 Report Impression - Status: SIGNED Entered: 12/15/2023 1153 IMPRESSION: Femoral component right hip replacement appearssatisfactory.Impression By: StephanieAGV - Quentin Soto M.D.RADIOLOGY - XR HIP W/PEL UNI 2+V RT 12/14 1104 Report Impression - Status: SIGNED Entered: 12/15/2023 1300 IMPRESSION: A hip prosthesis is identified. No new fracture is identified. Thereis air in the soft tissues, consistent with recent surgery. Metastatic disease to the bones is again demonstrated. Impression By: Lindsey - Timothy Grissom M.D. Diagnosis, Assessment Plan Free Text DxA P NotesFree Text DxA P Notes:1. Breast cancer 2. Metastatic malignancy likely recurrent breast 3. Spinal stenosis due to metastaic disease 4. pathological hip fracture I d/w patient, daughter and son at bedside.she has extensive disease I agree with initial management of her hip to help with her fracture.request tissue for path confirmationa nd molecular tumor profiling.I will obtain and review her [facility] records for initial cancer history.start dex 4mg TID IVspoke to neurosurgery DR Worrell.she has rather extensive area which will require a long surgery and recovery andpost op management will be challenging.requested MRI spineI will also d/w XRT oncology once MRI spine available to see if XRT to spine will help with disease control. I did inform patient and family prognosis with out treatment is few months. If this is breast cancer and ER / Her 2 positive she has several good treatment options that can prolong her survival in the order of years. will need to wait on path and see how her performance status is. also recommend MRI brain if not already doen due to extensive metastatic disease. 12/14s/p right hip surgerytissue sent for path results pending for confirmation and molecular tumor profilingspoke with XRT oncology and plan is to initiate inpatient XRT for spinal cord compression x [address] Gardner and Dr Worrell and DR Payne to coordinate care. continue dex4mg q 8 and will slowly taper after competion of xrt. all questions answered. at 2254 Addendum 1: 12/15/23 2255 by Leanna Villatoro MD hypercalcemi s/p zometa x 1 on 12/13calcium normalaggresive DVT prophylaxis starte don lovenox 30mg q 12. at 2256 RPT #:[id number] OF REPORTPRProgress [id number]:49:00G.[id number] for patient gegjLPXQXXHQQFJANK0085-79-69E87:54:37 [facility] 2023-12-15 14:21:00 [id number]/ [id number] /4kHDEatmwQRHGayc1j4302-91-01F01:21:00 [facility]Hospital[facility] Progress NoteREPORT#:[id number] REPORT STATUS: SignedREPORT INITIALIZATION DATE:12/15/23 TIME: 1420 PATIENT: JUSTYNA GAMING UNIT #: [id number]#: [id number] [address] [birth year] AGE: 73 SEX: F ATTEND: Mirna Delcid DOADM AUTHOR: Yoseph Floyd MDREPT SERVICE DT/TIME: 12/15/231420* ALL edits or amendments must be made on the electronic/computer document * SubjectiveChief complaint:Right hip painHPI:Patient is a 73 years old lady with past medical history of hypertension, hypothyroidism, asthma, spinal stenosis and breast cancer. [facility] on account of inability to walk of about 90 days duration. She also noted sudden episode of right hip pain. This pain is worse with walking. Pain became unbearable and it was difficult for patient to ambulate. She deniesany history of fall. Imaging demonstrated right hip fracture and also right femoral fracture. Orthopedic unit has been consulted. Patient is being admitted for further evaluation of suspected pathological fracture. She has a history of breast cancer. Her last visit to her doctor was in April 2023. Objective GeneralVS/I O:Vital Signs: Date Time Temp Pulse Resp B/P B/P Pulse O2 O2 Flow FiO2 Mean Ox Delivery Rate 12/14 1120 97.4 57 11 165/68 100 Nasal 3 cannula 12/14 1115 56 8 170/74 100 12/14 1110 57 16 177/77 100 12/14 1105 61 15 175/63 98 12/14 1100 56 10 187/79 98 12/14 1055 57 9 174/73 99 12/14 1050 56 11 185/78 97 12/14 1045 55 17 202/85 100 12/14 1040 54 9 198/73 100 12/14 1035 60 13 197/86 96 Nasal 3 cannula 12/14 1034 Nasal 3 cannula 12/14 1030 68 18 184/78 94 12/14 1025 85 18 213/88 97 12/14 1020 77 8 202/83 100 12/14 1015 77 9 182/57 100 12/14 1010 76 13 183/74 100 12/14 1005 73 11 181/77 100 12/14 1000 72 11 157/67 100 12/14 0955 62 12 142/63 100 12/14 0952 Simple 8 mask 12/14 0950 64 12 139/65 100 12/14 0948 97.5 54 13 134/63 100 Simple 8 mask 12/14 0627 97.8 57 20 181/88 98 Nasal 3 cannula 12/14 0408 98.2 73 17 174/66 101.9 97 12/14 0014 98.4 64 17 168/66 100.1 96 12/13 1529 98.4 65 17 176/69 104.7 97 PATIENT WEIGHT: Weight (lb): Weight (oz): Weight (kg): 85.000 Physical ExamGeneral appearance: alert, awakeHead/Eyes: atraumatic, normocephalicENT: normal ear left, normal ear right, normal noseNeck: full range of motion, no JVDCardiovascular: regular rate rhythmRespiratory: aerating well, clear to auscultation, symmetric expansionAbdomen: non-tender, normal bowel sounds, softExtremities: no clubbing, no cyanosis, no edemaNeuro/PRODUCT SAFETY LEAD: alert, oriented X 3 ResultsRadiology data:Laboratory Tests 12/15/23 0500:[Embedded Image Not Available] 12/15/23 0017:[Embedded Image Not Available] 12/14/23 1313:[Embedded Image Not Available] 12/13/23 2254:[Embedded Image Not Available] Current Medications Sig/Fozia Start time LastMedication Dose Route Stop Time Status AdminEnoxaparin Sodium 30 MG Q12HR 12/14 2100 AC SUBQ 03/14 2059Cefazolin Sodium 1 GM Q8H 12/14 1600 ACSodium Chloride 10 ML IV 12/15 0002Miscellaneous 1 EACH ASDIR 12/14 1015 CKDInformation SUBQ 12/21 1014Sodium Chloride 1,000 ML .[id number] 12/14 1015 DC IV 03/14 1014Phenylephrine HCl 0 .STK-MED ONE 12/14 0840 DC .ROUTEGlycopyrrolate 0 .STK-MED ONE 12/14 0820 DC .ROUTEDiphenhydramine HCl 12.5 MG PACU ONCE PRN 12/14 0815 AC IV 12/14 1803Fentanyl Citrate 100 MCG PACU Q10MIN PRN PRN 12/14 0815 AC IV 12/14 1803Fentanyl Citrate 50 MCG PACU Q10MIN PRN PRN 12/14 0815 AC IV 12/14 1803Hydralazine HCl 5 MG PACU Q10MIN PRN PRN 12/14 0815 AC 12/14 IV 12/14 1803 1039Hydromorphone HCl 1 MG PACU Q10MIN PRN PRN 12/14 0815 AC IV 12/14 1803Hydromorphone HCl 0.5 MG PACU Q5MIN PRN PRN 12/14 0815 AC IV 12/14 1803Labetalol HCl 5 MG PACU Q10MIN PRN PRN 12/14 0815 AC 12/14 IV 12/14 1803 1027Lactated Ringer's 1,000 ML .Q24H 12/14 0815 AC IV 12/14 1803Meperidine HCl 12.5 MG PACU ONCE PRN 12/14 0815 AC IV 12/14 1804Ondansetron HCl 4 MG PACU ONCE PRN 12/14 0815 AC 12/14 IV 12/14 1803 1352Promethazine HCl 25 MG PACU ONCE PRN 12/14 0815 AC PO 12/14 1803Ropivacaine 150 MG ASDIR PRN 12/14 0815 AC LOCAL 12/14 1804Tramadol HCl 50 MG PACU ONCE 12/14 0815 CKD PO 12/14 1804Hydromorphone HCl 0 .STK-MED ONE 12/14 0802 DC .ROUTEFentanyl Citrate 0 .STK-MED ONE 12/14 0703 DC .ROUTELidocaine HCl 0 .STK-MED ONE 12/14 07 DC .ROUTEPropofol 20 ML .STK-MED ONE 12/14 0702 DC IVRocuronium [place] 0 .STK-MED ONE 12/14 07 DC IVPropofol 100 ML .STK-MED ONE 12/14 0656 DC IVClonidine HCl 0 .STK-MED ONE 12/14 06 DC .ROUTEEpinephrine 0 .STK-MED ONE 12/14 06 DC .ROUTERopivacaine 0 .STK-MED ONE 12/14 630 DC .ROUTETobramycin Sulfate 0 .STK-MED ONE 12/14 630 DC .ROUTETranexamic Acid 0 .STK-MED ONE 12/14 630 DC .ROUTEVancomycin HCl 0 .STK-MED ONE 12/14 06 DC .ROUTEKetorolac 0 .STK-MED ONE 12/14 629 DCTromethamine .ROUTEVancomycin HCl 1,000 MG PREOP ONCALL 12/14 06 CKD 12/14Sodium Chloride 250 ML IV 12/14 2359 0626Acetaminophen 0 .STK-MED ONE 12/14 0532 DC POCefazolin Sodium 0 .STK-MED ONE 12/14 0532 DC IVCelecoxib 0 .STK-MED ONE 12/14 0532 DC POGabapentin 0 .STK-MED ONE 12/14 0532 DC POSodium Chloride 250 ML .STK-MED ONE 12/14 0532 DC IVVancomycin HCl 0 .STK-MED ONE 12/14 0532 DC IVMupirocin 0 .STK-MED ONE 12/14 0531 DC NASALMupirocin 1 APPLIC BID 12/14 0530 AC 12/14 NASAL 12/18 0901 0603Cefazolin Sodium 2 GM PREOP ONCALL 12/14 0500 DC IV 12/14 2359Gadoterate Meglumine 17 ML ONCE PRN 12/13 1830 DC 12/13 IV 1938Zoledronic Acid 4 MG ONCE ONE 12/13 1639 DC odium Chloride 100 ML IV 12/13 1708 2208Hydrochlorothiazide 12.5 MG DAILY 12/13 1615 AC 12/13 PO 03/13 1614 1659Losartan Potassium 25 MG DAILY 12/13 1603 AC 12/13 PO 03/14 0859 1700Dexamethasone Sodium 4 MG Q6H 12/13 1600 AC 12/14Phosphate IV 03/13 1559 0328Hydromorphone HCl 0.5 MG Q3H PRN PRN 12/13 1315 AC IV 12/18 1314Acetaminophen 1,000 MG PREOP ONCALL 12/13 1245 CKD 12/14 PO 03/13 1244 0602Celecoxib 200 MG PREOP ONCALL 12/13 1245 CKD PO 01/12 2359Gabapentin 200 MG PREOP ONCALL 12/13 1245 CKD 12/14 PO 01/12 2359 0602Lactated Ringer's 1,000 ML PREOP ONCALL 12/13 1245 AC IV 03/13 1244Sodium Chloride 20 ML ASDIR 12/13 1245 AC IV 12/14 2359Albuterol/Ipratropium 3 ML RTQ4H PRN PRN 12/13 0300 AC NEB 03/13 0259Azithromycin 500 MG Q24H 12/13 0300 AC 12/14Sodium Chloride 250 ML IV 12/16 0259 0328Hydralazine HCl 10 MG Q6H PRN PRN 12/13 0300 AC IV 03/13 0259Acetaminophen 650 MG Q4H PRN PRN 12/13 0230 AC 12/13 PO 03/13 0229 1217Al Hydrox/Mg Hydrox/ 30 ML Q4H PRN PRN 12/13 0230 ACSimethicone PO 03/13 0229Docusate Sodium 100 MG BID PRN PRN 12/13 0230 AC PO 03/13 0229Sodium Chloride 1,000 ML .[id number] 12/13 0230 AC 12/13 IV 03/13 0229 1659 Laboratory Tests: 12/14 12/14 0500 0017 Chemistry Sodium (134 - 147 mEq/L) 139 Potassium (3.4 - 5.0 mEq/L) 3.8 Chloride (100 - 108 mEq/L) 106 Carbon Dioxide (21 - 33 mEq/l) 24 Anion Gap (0 - 20) 13 BUN (7 - 25 mg/dL) 29 H Creatinine (0.6 - 1.3 mg/dL) 1.1 Glomerular Filtr Rate (70 - 80) 52.7 L Glucose (77 - 141 mg/dL) 123 Calcium (8.0 - 10.5 mg/dL) 9.9 Total Bilirubin (0.0 - 1.0 mg/dL) 1.00 AST (8 - 34 IUnit/L) 47 H ALT (10 - 49 IUnit/L) 28 Total Alk Phosphatase (20 - 125 IUnit/L) 158 H Total Protein (6.4 - 8.2 g/dL) 6.2 L Albumin (3.4 - 5.0 g/dL) 3.20 L Hematology WBC (4.5 - 11.0 x10 3/uL) 7.6 RBC (3.54 - 5.02 x10 6/uL) 3.91 Hgb (11.0 - 15.0 g/dL) 11.7 Hct (33.0 - 45.0 %) 34.6 MCV (81.0 - 99.0 fL) 88.5 MCH (27.0 - 33.0 pg) 29.9 MCHC (33.0 - 37.0 g/dL) 33.8 RDW (11.5 - 14.5 %) 14.0 Plt Count (150 - 400 x10 3/uL) 179 MPV (7.0 - 9.0 fL) 11.0 H Neut % (Auto) (56.0 - 77.0 %) 87.1 H Lymph % (Auto) (14.0 - 32.0 %) 9.6 L Barrow % (Auto) (4.8 - 9.0 %) 1.8 L Eos % (Auto) (0.3 - 3.7 %) 0.0 L Baso % (Auto) (0.0 - 2.0 %) 0.3 Neut # (Auto) (2.0 - 7.6 x10 3/uL) 6.64 Lymph # (Auto) (1.0 - 3.8 x10 3/uL) 0.73 L Barrow # (Auto) (0.1 - 0.8 x10 3/uL) 0.14 Eos # (Auto) (0.0 - 0.2 x10 3/uL) 0.00 Baso # (Auto) (0.0 - 0.2 x10 3/uL) 0.02 Abs Immat Gran (auto) (0.00 - 0.03 x10 3/uL) 0.09 H Immature Gran % (0.0 - 2.0 %) 1.2 Nucleated RBC % (0 - 0 %) 0.0 Nucleated RBCs # (Man) (0.0 - 0.1 x10 3/uL) 0.00 Microbiology:12/14 0529 NASAL: MSSA Surveillance Screen - RECD12/13 1608 NASAL: MRSA DNA Surveillance Screen - COMP Recent Impressions:MAGNETIC RESONANCE IMAGING - MRI THORACIC SPINE WO/W CON 12/13 1939 Report Impression - Status: SIGNED Entered: 12/14/20232021 IMPRESSION: Findings consistent with extensive metastatic involvement seenthroughout the thoracic spine. There is significant epiduralcomponent at T8 seen left ventral to the thecal sac and left laterallywith perhaps minimal cord compression and there is a left paracentralventral epidural component identified at T7 without definite cordcompression. Multilevel spondylosis is also seen resulting compromiseof the canal at T9-T10 and at T10-T11 Impression By: Delfina Oneill M.D.RADIOLOGY - XR PELVIS 1/2 VIEWS 12/14 0833 Report Impression - Status: SIGNED Entered: 12/15/2023 1153 IMPRESSION: Femoral component right hip replacement appearssatisfactory.Impression By: Haylee Soto M.D.RADIOLOGY - XR HIP W/PEL UNI 2+V RT 12/14 1104 Report Impression - Status: SIGNED Entered: 12/15/2023 1300 IMPRESSION: A hip prosthesis is identified. No new fracture is identified. Thereis air in the soft tissues, consistent with recent surgery. Metastatic disease to the bones is again demonstrated. Impression By: Lindsey Grissom M.D. Free Text Obj NotesFree Text Obj Notes:General/Const Awake, Alert, orientedHENT Head atraumatic, normocephalic, ears/nose/throat airway patent, TMs clear bilaterallyMS Neck Neck Supple, no swelling, no tenderness to palpationResp/Chest CTAB, No respiratory distress, no rales, no rhonchi, no wheezingCardiovascular Normal rate, regular rhythm, heart sounds. No rubs murmurs gallopsAbdomen/GI Normal bowel sounds, soft, nontender, nondistended. No rebound or guardingMSNo bony deformity, 2+ DP pulses bilaterally. Some mild swelling to the right lower extremitySkin Skin Warm, Dry, no abrasions, rashes, lacerationsNeurologic Neurologic Oriented X3, Speech NL, no focal neuro deficits, CN 2-12 intact, 5/5 strength, sensation intact Diagnosis, Assessment Plan Free Text DxA P NotesFree text DxA P notes:AssessmentRight femoral fractureRight hip fractureMultiple lytic bone lesionsHypercalcemiaHypertensionAsthmapneumoniaHistory of breast cancer PlansReviewed imaging reports, concerning for metastatic processOrthopedic consulted in the ERConsider oncology consult in the morningAnalgesia as toleratedIv zithromaxDuoneb breathing treatment q4h prnSupp O2 as neededIV fluid, monitor serum calcium. PTH orderedIV prn hydralazine for elevated blood pressure, resume home medications when updated Further care per clinical courseCODE STATUS: full code. 12/14- s/p right hip arthroplasty for pathologic hip fracture. Multiple mets of the spine. XRT plans on going emergency radiation treatment ROSA while in the hospital for 5 treatments. at 1423 RPT #:[id number] OF REPORTPRProgress [id number]:21:00G.[id number] for patient smzbNPPBUJFCSNVWVG3149-97-76A91:23:51 [facility] 2023-12-15 11:25:00 [id number]+KFcKBSGG1 URQ/kHQ6TiKvG/lFT huHXFiC4HKxz0nupoyg4263-10-06Y97:25:00 [facility] ([facility])Operative Note - FullREPORT#:[id number] REPORT STATUS: SignedREPORT INITIALIZATION DATE:12/15/23 TIME: 1125 PATIENT: JUSTYNA GAMING UNIT #: [id number]#: [id number] [place] [facility] [place]: [birth year] AGE: 73 SEX: F ATTEND: Mirna Delcid DOADM AUTHOR: Alirio Hurtado MDREPT SERVICE DT/TIME: 12/15/23 1125* ALL edits or amendments must be made on the electronic/computer document * Operative ReportORM Surgeries: Surgery Date and Time: 12/15/2023 0700 Proposed Primary Procedure: RIGHT HEMIARTHROPLASTY HIP Start date: 12/15/23Start time: 744Pre-procedure diagnosis:right pathologic femoral neck fracture S72.799VX17.451Post-procedure diagnosis:right pathologic femoral neck fracture S72.264JA04.451Procedures performed:Right hip hemiarthroplasty [id number]/Procedure:See free textPrimary Surgeon: Alirio Armendarizistant(s): Raghavendra JiangAnesthesia: general anesthesiaIndications:see free textOperative findings:Pathologic right femoral neck fractureComplications: noneEstimated blood loss in ml's: 300ccsSpecimens removed/altered: femoral head and neck sent to pathologyImplant(s): [place] Accolade C Size 3 stem, bipolar 47mm OD headFluids:See anesthesia recordsDisposition: MEDSURGCounts: Sponge count: correct Instrument count: correct Needle count: correctWound class: clean-contaminated Free Text Op NotesFree Text Op Notes: INDICATIONS:The patient is a 73-year-old female with past medical history of breast cancer who sustained a pathologic fracture of the right hip resulting in a femoral neckfracture. The patient was made aware of the risks, benefits and alternatives to the procedure. All of the patient's questions were answered to their satisfaction and informed consent was obtained. PROCEDURE IN DETAIL:The patient was met in the preoperative holding area where the informed consent was reviewed and the operative site marked. The patient was then taken back to the operating room. After induction of anesthesia, the patient was carefully placed in the lateral decubitus position with the operative extremity facing up.A bledsoe bag was used to support the patient in this position and all bony prominences were well-padded with an axillary roll placed. The operative extremity was prepped and draped in usual sterile fashion. A surgical timeout was performed where the correct patient, planned operative procedure, correct operative site was reviewed and agreed upon by all operating room staff. It was also confirmed the patient had received a dose of intravenous prophylactic antibiotics as well as tranexamic acid. The planned incision was marked along the posterolateral aspect of the hip directly over the greater trochanter. A standard posterolateral approach was used for this procedure. After the incision was made, the subcutaneous adipose tissue was dissected down sharply to the level of fascia. Ledesma elevator was usedto better visualize the fascial layer directly over the greater trochanter. Electrocautery was used to incise the fascia in line with the overlying incision. Ledesma elevator was then placed under the gluteus aram, and electrocautery was used to dissect through this tissue. The Charnley retractor was then put into place. The extremity was placed in internally rotated positionto better facilitate access to the posterior aspect of the hip. Bursa was dissected off the posterior portion of the greater trochanter using electrocautery. The external rotators and posterior capsular structures were dissected off of the base of the femoral neck. The capsular tissue was tagged with two #5 FiberWires. The hip was gently placed into a dislocated position andthe planned femoral cut was marked on the posterior aspect of the femoral neck. The femoral neck was then cut with a reciprocating saw, and the femoral head andfractured neck were extracted. The specimen was sent to pathology A series of retractors were then placed about the acetabulum to better visualize this structure. Using a pituitary rongeur and electrocautery, the ligamentum teres was resected. After adequate visualization of the acetabulum was obtained, the acetabulum was sized with the appropriate trial head component. Attention was then addressed to the femur. The piriformis fossa was cleaned of soft tissue. Rongeur was used to remove the bony prominence about the posterolateral corner of the femoral neck. Box osteotome was then used to createa bony canal at the lateral aspect of the base of the femoral neck. A canal finder was then placed down the femoral canal. A lateralizing broach was used toream the proximal femur. The femoral canal was then prepared with a series of sequential broaches. A size 3 broach appeared to have good fit. A trial neck andhead were placed atop the broach, and the hip was reduced. Leg lengths were checked and range of motion and stability tested. With the hip in full extension, there was no anterior dislocation with 45 degrees of external rotation. With the hip extended and knee flexed, the hip could be easily rotated internally to 70 degrees. With the hip flexed to 90 degrees, the hip could be internally rotated approximately 70 degrees before impingement. It was stable in this position as well as the position of sleep. Intraoperative x-rays were then takenverifying component positioning and sizing as well as leg lengths. The hip was then dislocated and the trials were removed. The wound was copiously irrigated. We then dried the canal and applied a cement plug. We then pressurized cement into the canal.A size 3 femoral stem implant was then placed onto the prepared canal and gentlyimpacted in until fully seated. The cement was then allowed to harden. A bipolar femoral head size 47 was assembled and impacted onto the taper. It was confirmed the head had been securely fit onto the stem. The hip was then reduced. After reduction of the hip, range of motion and stability were once again verified and found to be satisfactory. The posterior capsule was then re-approximated to itself with #5 FiberWire giving us a good, stable soft-tissue sling. The wound was then thoroughly irrigated with normal saline pulse lavage. Then the wound was infiltrated with multimodal anesthetic. The fascial layer was closed with Quill in a running fashion Subcutaneous adipose tissue was closed with 0-Vicryl and 2-0 Vicryl in interrupted fashion. The skin was then addressed with skin jones. A sterile dressing was then applied. The drapes were taken down. The patient tolerated theprocedure well and was transferred to the hospital bed. Patient was transported to recovery room in comfortable and stable condition. All counts were correct atthe completion of the case. ATTESTATION:I was present for the entirety of the procedure. Post op course:-WBAT operative right lower extremity with posterior hip precautions-DVT ppx - per primary, recommend Lovenox or ASA 325mg BID-Antibiotics - SCIP-OK to d/c when cleared from PT Alirio Hurtado MD at 1131 [facility] #:[id number] OF REPORTOPOperative ooqtca7034-51-36P48:25:00G.[id number] for patient ogwsVFJNZTZSIBNMKW6567-73-92A53:31:39 [facility] [facility] 2023-12-15 11:08:00 [id number]:08:00 [facility] ([facility])Clinical NoteREPORT#:[id number] REPORT STATUS: SignedREPORT INITIALIZATION DATE:12/15/23 TIME: 1107 PATIENT: JUSTYNA GAMING UNIT #: [id number]#: [id number] [address] [birth year] AGE: 73 SEX: F ATTEND: Mirna Delcid DOADM AUTHOR: Blanco Worrell MDREPT SERVICE DT/TIME: 12/15/23 1108* ALL edits or amendments must be made on the electronic/computer document * Clinical NoteNote:Patient is in OR for hip procedure during my visit, plan discussed with the daughter in the room and with RN and Dr. Villatoro. MRI reveals extensive bony and some epidural component of the tumor from T5 to T9 levels, but there is minimal spinal cord compression. No immediate neurosurgical intervention would be necessary at this time. Recommend to start XRT rosa and any other adjuvant treatment as per Dr. Villatoro. Patient should follow up with me in office in 6 weeks with plain thoracic spine X-rays to ensure no further collapse of T7/9 vertebral bodies. I have given my office info to the daughter. Will standby for now, please call prn. at 1111 RPT #:[id number] OF REPORTCLClinical [id number]:08:00G.[id number] for patient [id number]:12:02 [facility] 2023-12-15 10:15:00 [id number]/[id number]:15:00 [facility] ([facility])Orthopaedic Consult NoteREPORT#:[id number] REPORT STATUS: SignedREPORT INITIALIZATION DATE:12/15/23 TIME: 1015 PATIENT: JUSTYNA GAMING UNIT #: [id number]#: [id number] [address] [birth year] AGE: 73 SEX: F ATTEND: Mirna Delcid DOADM AUTHOR: Alirio Hurtado MDREPT SERVICE DT/TIME: 12/15/23 1015* ALL edits or amendments must be made on the electronic/computer document * History of Present IllnessRequesting clinician: Tyler for consult: fracture closed, painChief complaint:Right hip painPCP:PCP: No Primary or Family Physician HPI:Patient is a 73-year-old female with hypertension, hypothyroid who presents to the hospital with 9 days of right hip pain. She was unable to ambulate for the entire duration. She was brought to the hospital via EMS where workup revealed a right pathologic femoral neck fracture with evidence of mixed lesions throughout her pelvis and proximal femur. She was admitted to the hospitalist. Of note, the patient has had a diagnosis of breast cancer, stage III dating backto 2013. She lost her oncologist and did not find another. She was however following up with her surgeon. She was told based off mammograms that she was cancer free. She has never undergone a PET scan in the past.Hx Obtained From Patient, Daughter History - Adult longitudinalPast medical history:Reports: Hypertension, Thyroid disorder. Denies: Alcoholism/subst abuse, Anemia, Arthritis, Asthma, Atrial fibrillation, Cancer, Congestive heart failure, COPD, Coronary artery disease, Dementia, Depression/mood disorder, Diabetes mellitus, GERD/gastritis, Kidney disease/stones, Seizure disorder, Transient ischemic attack, , Abdominal aortic aneurysm, ADD/ADHD, AIDS, Angina pectoris, Anticoagulant therapy, Atrial flutter, Bleeding disorder, BPH, C diff colitis, Cardiac dysrhythmias, Chronic pain, Cirrhosis, Congenital anomalies, Dyslipidemia, Gallbladder dis/stones, GI bleed, Glaucoma, Headache disorder, Hepatitis, HIV, Intracranial hemorrhage, Ischemic stroke, Motor dysfunction, Pancreatitis, Peptic ulcer disease, Periph arterial disease, Pressure ulcer, Prior OR, Schizophrenia, Sickle cell disease, Steroid use, Transfusion history, Tuberculosis, Urinary tract infection, Venous thromboembolism. Additional medical history:Matheus breast cancer.Past surgical history:Reports: Breast biopsy/procedure. 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 Additional surgical history:Bilateral Breast lumpectomy for bilateral breast can cerFamily history:Denies: Abdominal aortic aneurysm, Anemia, Asthma, CAD < 40 yrs old, Cancer, Coagulopathy, Dementia/Alzheimer's dis, Depression/mood disorder, Diabetes, Heart disease, Hypertension, Kidney disease/stones, Seizure disorder, Stroke/TIA, Subarachnoid hemorrhage, Sudden cardiac , Thyroid disorder, , Connective tissue dis, Gallbladder disease, Hyperlipidemia, Neurofibromatosis, Sickle cell disease. Alcohol use: Denies EtOH useDrug use: Denies recreational drugsSmoking status for patients 13 years old or older: Never SmokerOther social history: Primary family support, , retired, lives alone and daughter lives 1/2 hr away and involved in her careMedications:Home Medications:Medication Dose/Rte/Freq Days Qty Entered Last Max Daily Dose Reviewed ALBUTEROL (Unknown Dose) 12/14/23 12/14/23 (ALBUTEROL HFA 90 0355 0356 MCG/ACT)Strength: (UnknownStrength) INHALER Current Hospital Medications:Anti-Infective Agents Sig/Fozia Start time Last Medication Dose Route Stop Time Status Admin Cefazolin Sodium 1 GM Q8H 12/14 1600 AC (KEFZOL OR ANCEF) IV 12/15 0002 Sodium Chloride 10 ML (SODIUM CHLORIDE) Tobramycin Sulfate 0 .STK-MED ONE 12/14 0631 DC (NEBCIN 1.2 GM .ROUTE POWDER) Vancomycin HCl 0 .STK-MED ONE 12/14 0631 DC (VANCOMYCIN HCL) .ROUTE Vancomycin HCl 1,000 MG PREOP ONCALL 12/14 0630 CKD 12/14 (VANCOMYCIN HCL) IV 12/14 2359 0626 Sodium Chloride 250 ML (SODIUM CHLORIDE 0.9%) Cefazolin Sodium 0 .STK-MED ONE 12/14 0532 DC (KEFZOL OR ANCEF) IV Vancomycin HCl 0 .STK-MED ONE 12/14 0532 DC (VANCOMYCIN HCL) IV Cefazolin Sodium 2 GM PREOP ONCALL 12/14 0500 DC (KEFZOL OR ANCEF) IV 12/14 2359 Azithromycin 500 MG Q24H 12/13 0300 AC 12/14 (ZITHROMAX) IV 12/16 0259 0328 Sodium Chloride 250 ML (SODIUM CHLORIDE 0.9%) Antihistamine Drugs Sig/Fozia Start time Last Medication Dose Route Stop Time Status Admin Diphenhydramine HCl 12.5 MG PACU ONCE PRN 12/14 0815 AC (BENADRYL) IV 12/14 1803 Promethazine HCl 25 MG PACU ONCE PRN 12/14 0815 AC (PHENERGAN) PO 12/14 1803 Autonomic Drugs Sig/Fozia Start time Last Medication Dose Route Stop Time Status Admin Phenylephrine HCl 0 .STK-MED ONE 12/14 0840 DC (Phenylephrine PF .ROUTE 500 mcg/5 mL Inj) Glycopyrrolate 0 .STK-MED ONE 12/14 0820 DC (GLYCOPYRROLATE) .ROUTE Rocuronium [place] 0 .STK-MED ONE 12/14 0702 DC (ZEMURON) IV Epinephrine 0 .STK-MED ONE 12/14 0631 DC (ADRENALIN CHLORIDE) .ROUTE Albuterol/Ipratropium 3 ML RTQ4H PRN PRN 12/13 0300 AC (DUONEB) NEB 03/13 0259 Blood Formation,Coagulation Sig/Fozia Start time Last Medication Dose Route Stop Time Status Admin Tranexamic Acid 0 .STK-MED ONE 12/14 0631 DC (Cyklokapron) .ROUTE Cardiovascular Drugs Sig/Fozia Start time Last Medication Dose Route Stop Time Status Admin Hydralazine HCl 5 MG PACU Q10MIN PRN PRN 12/14 0815 AC 12/14 (APRESOLINE) IV 12/14 1803 1039 Labetalol HCl 5 MG PACU Q10MIN PRN PRN 12/14 0815 AC 12/14 (labetalol) IV 12/14 1803 1027 Lidocaine HCl 0 .STK-MED ONE 12/14 07 DC (XYLOCAINE) .ROUTE Losartan Potassium 25 MG DAILY 12/13 1603 AC 12/13 (COZAAR) PO 03/14 0859 1700 Hydralazine HCl 10 MG Q6H PRN PRN 12/13 0300 AC (APRESOLINE) IV 03/13 0259 Central Nervous System Agents Sig/Fozia Start time LastMedication Dose Route Stop Time Status AdminFentanyl Citrate 100 MCG PACU Q10MIN PRN PRN 12/14 0815 AC (SUBLIMAZE) IV 12/14 1803Fentanyl Citrate 50 MCG PACU Q10MIN PRN PRN 12/14 0815 AC (SUBLIMAZE) IV 12/14 1803Hydromorphone HCl 1 MG PACU Q10MIN PRN PRN 12/14 0815 AC (DILAUDID) IV 12/14 1803Hydromorphone HCl 0.5 MG PACU Q5MIN PRN PRN 12/14 0815 AC (DILAUDID) IV 12/14 1803Meperidine HCl 12.5 MG PACU ONCE PRN 12/14 0815 AC (MEPERIDINE HCL/PF) IV 12/14 1804Tramadol HCl 50 MG PACU ONCE 12/14 0815 CKD (ULTRAM) PO 12/14 1804Hydromorphone HCl 0 .STK-MED ONE 12/14 0802 DC (DILAUDID) .ROUTEFentanyl Citrate 0 .STK-MED ONE 12/14 0703 DC (SUBLIMAZE) .ROUTEPropofol 20 ML .STK-MED ONE 12/14 0702 DC(DIPRIVAN 200MG/20ML IVINJECTION)Propofol 100 ML .STK-MED ONE 12/14 0656 DC (DIPRIVAN 1,000MG/ IV 100ML)Clonidine HCl 0 .STK-MED ONE 12/14 0631 DC (CLONIDINE 1000 MCG/ .ROUTE 10 ML VIAL)Ketorolac 0 .STK-MED ONE 12/14 0630 DCTromethamine .ROUTE (TORADOL 30 MG)Acetaminophen 0 .STK-MED ONE 12/14 0532 DC (TYLENOL EXTRA POSTRENGTH)Celecoxib 0 .STK-MED ONE 12/14 0532 DC (CeleBREX) POGabapentin 0 .STK-MED ONE 12/14 05 DC (NEURONTIN) POHydromorphone HCl 0.5 MG Q3H PRN PRN 12/13 1315 AC (DILAUDID) IV 12/18 1314Acetaminophen 1,000 MG PREOP ONCALL 12/13 1245 CKD 12/14 (TYLENOL EXTRA PO 03/13 1244 0602STRENGTH)Celecoxib 200 MG PREOP ONCALL 12/13 1245 CKD (CeleBREX) PO 01/12 2359Gabapentin 200 MG PREOP ONCALL 12/13 1245 CKD 12/14 (NEURONTIN) PO 01/12 2359 0602Acetaminophen 650 MG Q4H PRN PRN 12/13 0230 AC 12/13 (TYLENOL) PO 03/13 0229 1217 Diagnostic Agents Sig/Fozia Start time Last Medication Dose Route Stop Time Status Admin Gadoterate Meglumine 17 ML ONCE PRN 12/13 1830 DC 12/13 (DOTAREM) IV 1938 Electrolytic, Caloric, And Dionisio Sig/Fozia Start time Last Medication Dose Route Stop Time Status Admin Sodium Chloride 1,000 ML .[id number] 12/14 1015 DC (SODIUM CHLORIDE IV 03/14 1014 0.9%) Lactated Ringer's 1,000 ML .Q24H 12/14 0815 AC (LACTATED RINGERS) IV 12/14 1803 Sodium Chloride 250 ML .STK-MED ONE 12/14 0532 DC (SODIUM CHLORIDE IV 0.9%) Hydrochlorothiazide 12.5 MG DAILY 12/13 1615 AC 12/13 (hydroCHLOROthiazide) PO 03/13 1614 1659 Lactated Ringer's 1,000 ML PREOP ONCALL 12/13 1245 AC (LACTATED RINGERS) IV 03/13 1244 Sodium Chloride 20 ML ASDIR 12/13 1245 AC (SODIUM CHLORIDE) IV 12/14 2359 Sodium Chloride 1,000 ML .[id number] 12/13 0230 AC 12/13 (SODIUM CHLORIDE IV 03/13 0229 1659 0.9%) Eye, Ear, Nose And Throat (Een Sig/Fozia Start time Last Medication Dose Route Stop Time Status Admin Dexamethasone Sodium 4 MG Q6H 12/13 1600 AC 12/14 Phosphate IV 03/13 1559 0328 (DECADRON) Gastrointestinal Drugs Sig/Fozia Start time Last Medication Dose Route Stop Time Status Admin Ondansetron HCl 4 MG PACU ONCE PRN 12/14 0815 AC (ZOFRAN) IV 12/14 1803 Al Hydrox/Mg Hydrox/ 30 ML Q4H PRN PRN 12/13 0230 AC Simethicone PO 03/13 0229 (MYLANTA) Docusate Sodium 100 MG BID PRN PRN 12/13 0230 AC (COLACE) PO 03/13 0229 Local Anesthetics (Parenteral) Sig/Fozia Start time Last Medication Dose Route Stop Time Status Admin Ropivacaine 150 MG ASDIR PRN 12/14 0815 AC (NAROPIN 0.5% 150 MG/ LOCAL 12/14 1804 30mL) Ropivacaine 0 .STK-MED ONE 12/14 0631 DC (NAROPIN 0.5% 150 MG/ .ROUTE 30mL) Miscellaneous Therapeutic Agen Sig/Fozia Start time Last Medication Dose Route Stop Time Status Admin Zoledronic Acid 4 MG ONCE ONE 12/13 1639 DC 12/13 (Zoledronic Acid) IV 12/13 1708 2208 Sodium Chloride 100 ML (SODIUM CHLORIDE 0.9%) Skin And Mucous Membrane Agent Sig/Fozia Start time Last Medication Dose Route Stop Time Status Admin Mupirocin 0 .STK-MED ONE 12/14 0531 DC (BACTROBAN 2% 22 GM NASAL OINTMENT) Mupirocin 1 APPLIC BID 12/14 0530 AC 12/14 (BACTROBAN 2% 22 GM NASAL 12/18 0901 0603 OINTMENT) Other Sig/Fozia Start time Last Medication Dose Route Stop Time Status Admin Miscellaneous 1 EACH ASDIR 12/14 1015 PEND Information SUBQ 12/21 1014 ([facility] TO [facility]) Allergies:Coded Allergies:aspirin (NAUSEA 12/14/23)cefdinir (NAUSEA 12/14/23)codeine (NAUSEA 12/14/23)morphine (NAUSEA 12/14/23) Review of SystemsConstitutional:Denies: chills, fatigue, fever, generalized weakness, lethargy, malaise, recent wt loss, other. All systems rev neg: except as marked ObjectiveVS:Last Documented: Result Date Time Pulse Ox 100 12/14 1040 B/P 198/73 12/14 1040 Pulse 54 12/14 1040 Resp 9 12/14 1040 O2 Delivery Nasal cannula 12/14 1035 O2 Flow Rate 3 12/14 1035 Temp 97.5 12/14 0948 B/P Mean 101.9 12/14 0408 PATIENT WEIGHT: Weight (lb): Weight (oz): Weight (kg): 85.000 Medications:Active Meds + DC'd Last 24 HrsCefazolin Sodium (KEFZOL OR ANCEF) 1 GM Q8H IV Sodium Chloride (SODIUM CHLORIDE) 10 MLMiscellaneous Information ([email or web address]) 1 EACH ASDIR SUBQ (PEND) Sodium Chloride (SODIUM CHLORIDE 0.9%) 1,000 ML .[id number] IV (DC) Phenylephrine HCl (Phenylephrine PF 500 mcg/5 mL Inj) 0 .STK-MED ONE .ROUTE (DC) Glycopyrrolate (GLYCOPYRROLATE) 0 .STK-MED ONE .ROUTE (DC) Diphenhydramine HCl (BENADRYL) 12.5 MG PACU ONCE PRN IV Fentanyl Citrate (SUBLIMAZE) 100 MCG PACU Q10MIN PRN PRN IV Fentanyl Citrate (SUBLIMAZE) 50 MCG PACU Q10MIN PRN PRN IV Hydralazine HCl (APRESOLINE) 5 MG PACU Q10MIN PRN PRN IV Hydromorphone HCl (DILAUDID) 1 MG PACU Q10MIN PRN PRN IV Hydromorphone HCl (DILAUDID) 0.5 MG PACU Q5MIN PRN PRN IV Labetalol HCl (labetalol) 5 MG PACU Q10MIN PRN PRN IV Lactated Ringer's (LACTATED RINGERS) 1,000 ML .Q24H IV Meperidine HCl (MEPERIDINE HCL/PF) 12.5 MG PACU ONCE PRN IV Ondansetron HCl (ZOFRAN) 4 MG PACU ONCE PRN IV Promethazine HCl (PHENERGAN) 25 MG PACU ONCE PRN PO Ropivacaine (NAROPIN 0.5% 150 MG/30mL) 150 MG ASDIR PRN LOCAL Tramadol HCl (ULTRAM) 50 MG PACU ONCE PO (CKD) Hydromorphone HCl (DILAUDID) 0 .STK-MED ONE .ROUTE (DC) Fentanyl Citrate (SUBLIMAZE) 0 .STK-MED ONE .ROUTE (DC) Lidocaine HCl (XYLOCAINE) 0 .STK-MED ONE .ROUTE (DC) Propofol (DIPRIVAN 200MG/20ML INJECTION) 20 ML .STK-MED ONE IV (DC) Rocuronium [place] (ZEMURON) 0 .STK-MED ONE IV (DC) Propofol (DIPRIVAN 1,000MG/100ML) 100 ML .STK-MED ONE IV (DC) Clonidine HCl (CLONIDINE 1000 MCG/10 ML VIAL) 0 .STK-MED ONE .ROUTE (DC) Epinephrine (ADRENALIN CHLORIDE) 0 .STK-MED ONE .ROUTE (DC) Ropivacaine (NAROPIN 0.5% 150 MG/30mL) 0 .STK-MED ONE .ROUTE (DC) Tobramycin Sulfate (NEBCIN 1.2 GM POWDER) 0 .STK-MED ONE .ROUTE (DC) Tranexamic Acid (Cyklokapron) 0 .STK-MED ONE .ROUTE (DC) Vancomycin HCl (VANCOMYCIN HCL) 0 .STK-MED ONE .ROUTE (DC) Ketorolac Tromethamine (TORADOL 30 MG) 0 .STK-MED ONE .ROUTE (DC) Vancomycin HCl (VANCOMYCIN HCL) 1,000 MG PREOP ONCALL IV (CKD) Sodium Chloride (SODIUM CHLORIDE 0.9%) 250 MLAcetaminophen (TYLENOL EXTRA STRENGTH) 0 .STK-MED ONE PO (DC) Cefazolin Sodium (KEFZOL OR ANCEF) 0 .STK-MED ONE IV (DC) Celecoxib (CeleBREX) 0 .STK-MED ONE PO (DC) Gabapentin (NEURONTIN) 0 .STK-MED ONE PO (DC) Sodium Chloride (SODIUM CHLORIDE 0.9%) 250 ML .STK-MED ONE IV (DC) Vancomycin HCl (VANCOMYCIN HCL) 0 .STK-MED ONE IV (DC) Mupirocin (BACTROBAN 2% 22 GM OINTMENT) 0 .STK-MED ONE NASAL (DC) Mupirocin (BACTROBAN 2% 22 GM OINTMENT) 1 APPLIC BID NASAL Cefazolin Sodium (KEFZOL OR ANCEF) 2 GM PREOP ONCALL IV (DC) Gadoterate Meglumine (DOTAREM) 17 ML ONCE PRN IV (DC) Zoledronic Acid (Zoledronic Acid) 4 MG ONCE ONE IV (DC) Sodium Chloride (SODIUM CHLORIDE 0.9%) 100 MLHydrochlorothiazide (hydroCHLOROthiazide) 12.5 MG DAILY PO Losartan Potassium (COZAAR) 25 MG DAILY PO Dexamethasone Sodium Phosphate (DECADRON) 4 MG Q6H IV Hydromorphone HCl (DILAUDID) 0.5 MG Q3H PRN PRN IV Acetaminophen (TYLENOL EXTRA STRENGTH) 1,000 MG PREOP ONCALL PO (CKD) Celecoxib (CeleBREX) 200 MG PREOP ONCALL PO (CKD) Gabapentin (NEURONTIN) 200 MG PREOP ONCALL PO (CKD) Lactated Ringer's (LACTATED RINGERS) 1,000 ML PREOP ONCALL IV Sodium Chloride (SODIUM CHLORIDE) 20 ML ASDIR IV Albuterol/Ipratropium (DUONEB) 3 ML RTQ4H PRN PRN NEB Azithromycin (ZITHROMAX) 500 MG Q24H IV Sodium Chloride (SODIUM CHLORIDE 0.9%) 250 MLHydralazine HCl (APRESOLINE) 10 MG Q6H PRN PRN IV Acetaminophen (TYLENOL) 650 MG Q4H PRN PRN PO Al Hydrox/Mg Hydrox/Simethicone (MYLANTA) 30 ML Q4H PRN PRN PO Docusate Sodium (COLACE) 100 MG BID PRN PRN PO Sodium Chloride (SODIUM CHLORIDE 0.9%) 1,000 ML .[id number] IV Physical ExamGeneral appearance: alert, awake, orientedFoot-left: neurovascular intact, non-tender, normal inspection, palpable pulsesFoot-right: neurovascular intact, non-tender, normal inspection, palpable pulsesHip/thigh-right: pain with ROM, tenderness, neurovascular intactHEENT: atraumatic, normocephalicNeck: full range of motion, non-tenderCardiovascular: pedal pulses present, regular rate rhythmRespiratory: no distressAbdomen: non-tender, softNeuro/PRODUCT SAFETY LEAD: alert, oriented X 3, normal speechSkin: dry, intactLymphatics: no lymphadenopathyPsychiatry: normal affect, normal judgment/insight, normal mood ResultsFindings/data:Laboratory Tests 12/14 12/13 0500 1313 Chemistry Sodium (134 - 147 mEq/L) 139 Potassium (3.4 - 5.0 mEq/L) 3.8 Chloride (100 - 108 mEq/L) 106 Carbon Dioxide (21 - 33 mEq/l) 24 Anion Gap (0 - 20) 13 BUN (7 - 25 mg/dL) 29 H Creatinine (0.6 - 1.3 mg/dL) 1.1 1.2 Glomerular Filtr Rate (70 - 80) 52.7 L Glucose (77 - 141 mg/dL) 123 Calcium (8.0 - 10.5 mg/dL) 9.9 Total Bilirubin (0.0 - 1.0 mg/dL) 1.00 AST (8 - 34 IUnit/L) 47 H ALT (10 - 49 IUnit/L) 28 Total Alk Phosphatase (20 - 125 IUnit/L) 158 H Total Protein (6.4 - 8.2 g/dL) 6.2 L Albumin (3.4 - 5.0 g/dL) 3.20 L Laboratory Tests 12/14 0017 Hematology WBC (4.5 - 11.0 x10 3/uL) 7.6 RBC (3.54 - 5.02 x10 6/uL) 3.91 Hgb (11.0 - 15.0 g/dL) 11.7 Hct (33.0 - 45.0 %) 34.6 MCV (81.0 - 99.0 fL) 88.5 MCH (27.0 - 33.0 pg) 29.9 MCHC (33.0 - 37.0 g/dL) 33.8 RDW (11.5 - 14.5 %) 14.0 Plt Count (150 - 400 x10 3/uL) 179 MPV (7.0 - 9.0 fL) 11.0 H Neut % (Auto) (56.0 - 77.0 %) 87.1 H Lymph % (Auto) (14.0 - 32.0 %) 9.6 L Barrow % (Auto) (4.8 - 9.0 %) 1.8 L Eos % (Auto) (0.3 - 3.7 %) 0.0 L Baso % (Auto) (0.0 - 2.0 %) 0.3 Neut # (Auto) (2.0 - 7.6 x10 3/uL) 6.64 Lymph # (Auto) (1.0 - 3.8 x10 3/uL) 0.73 L Barrow # (Auto) (0.1 - 0.8 x10 3/uL) 0.14 Eos # (Auto) (0.0 - 0.2 x10 3/uL) 0.00 Baso # (Auto) (0.0 - 0.2 x10 3/uL) 0.02 Abs Immat Gran (auto) (0.00 - 0.03 x10 3/uL) 0.09 H Immature Gran % (0.0 - 2.0 %) 1.2 Nucleated RBC % (0 - 0 %) 0.0 Nucleated RBCs # (Man) (0.0 - 0.1 x10 3/uL) 0.00 Radiology data:Recent Impressions:[facility] IM[facility]ING - MRI THORACIC SPINE WO/W CON 12/13 1938 Report Impression - Status: SIGNED Entered: 12/14/20232021 IMPRESSION: Findings consistent with extensive metastatic involvement seenthroughout the thoracic spine. There is significant epiduralcomponent at T8 seen left ventral to the thecal sac and left laterallywith perhaps minimal cord compression and there is a left paracentralventral epidural component identified at T7 without definite cordcompression. Multilevel spondylosis is also seen resulting compromiseof the canal at T9-T10 and at T10-T11 Impression By: Delfina - Ann Oneill M.D. X-ray interpretation:Right pathologic femoral neck fracture with mixed lesions about the bilateral proximal femur and pelvic ring as well as thoracic spine Diagnosis, Assessment PlanProblem List/A P: 1. Right femoral fracture Free Text A P:The patient is a 73-year-old female with a complex problem. It appears that shehas metastatic disease likely from continued breast cancer. Per the patient, she has not been following up with her oncologist and no PET scans were ever obtained. She was only getting mammograms. Speaking with oncology here, and her clinical history as well as radiologic findings, it is nearly certain that she has a right pathologic femoral neck fracture from metastatic breast disease. The plan is I explained to the patient will be to proceed with right hip cemented hemiarthroplasty. We will send the tissues to the pathologist for review and for analysis for markers. Speaking with oncology, she does have a poor prognosis. Risk and benefits of operative versus nonoperative management were discussed with the patient. Risk of surgery include pain, bleeding, infection, damage to any structures, loss of function, stroke, heart attack and . Without surgical intervention, she will be bedbound. She will likely have complications associated with recumbency such as blood clots, bedsores, pneumonia, urinary tract infections, etc. With surgery she may be fully weightbearing. She has a high risk of mortality without surgery. This plan hasbeen communicated to the primary team and the patient. Plan to proceed with right hip hemiarthroplasty. NPO. at 1124 RPT #:[id number] OF [id number]:15:00G.[id number] 0528AVAvailable for patient [id number]:24:56 [facility] 2023-12-14 17:05:00 [id number] [id number] [id number]:05:00 [facility]Ne[facility] ConsultationREPORT#:[id number] REPORT STATUS: SignedREPORT INITIALIZATION DATE:12/14/23 TIME: 1704 PATIENT: JUSTYNA GAMING UNIT #: [id number]#: [id number] ROOM[facility]BED[facility] [place]DOB: [birth year] AGE: 73 SEX: F ATTEND: Mirna Delcid DOADM AUTHOR: Blanco Worrell MDREPT SERVICE DT/TIME: 12/14/231704* ALL edits or amendments must be made on the electronic/computer document * History of Present IllnessHPI:73 years old RHWF, admitted emergently due to sudden increased right hip and legpain for the past 10 days, no h/o fall, patient has been ambulatory with a walker and/or cane in her house for the past 3 months but could not walk in the last 10 days due to this severe hip pain which was diagnosed as a pathological hip fracture in our hospital. Tabitha has h/o breast cancer diagnosed and treated since 2013 with lumpectomy, local XRT and chempotherapy. She has been followed (last in ) at [facility] by Dr. Mcqueen (breast surgeon) since then. Patient is lying in bed with daughter by her bedside and cannot move her right hip due to severe pain but can move her distal RLE (foot) quite well. She does mention radiating pain down her leg (RLE) and is not sure about the numbness in legs. Bladder and bowel habits are normal by history. History - Adult longitudinalPast medical history:Reports: Hypertension, Thyroid disorder. Denies: Alcoholism/subst abuse, Anemia, Arthritis, Asthma, Atrial fibrillation, Cancer, Congestive heart failure, COPD, Coronary artery disease, Dementia, Depression/mood disorder, Diabetes mellitus, GERD/gastritis, Kidney disease/stones, Seizure disorder, Transient ischemic attack, , Abdominal aortic aneurysm, ADD/ADHD, AIDS, Angina pectoris, Anticoagulant therapy, Atrial flutter, Bleeding disorder, BPH, C diff colitis, Cardiac dysrhythmias, Chronic pain, Cirrhosis, Congenital anomalies, Dyslipidemia, Gallbladder dis/stones, GI bleed, Glaucoma, Headache disorder, Hepatitis, HIV, Intracranial hemorrhage, Ischemic stroke, Motor dysfunction, Pancreatitis, Peptic ulcer disease, Periph arterial disease, Pressure ulcer, Prior OR, Schizophrenia, Sickle cell disease, Steroid use, Transfusion history, Tuberculosis, Urinary tract infection, Venous thromboembolism. Past surgical history:Reports: Breast biopsy/procedure. 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 Additional surgical history:Bilateral Breast lumpectomy for bilateral breast can cerFamily history:Denies: Abdominal aortic aneurysm, Anemia, Asthma, CAD < 40 yrs old, Cancer, Coagulopathy, Dementia/Alzheimer's dis, Depression/mood disorder, Diabetes, Heart disease, Hypertension, Kidney disease/stones, Seizure disorder, Stroke/TIA, Subarachnoid hemorrhage, Sudden cardiac , Thyroid disorder, , Connective tissue dis, Gallbladder disease, Hyperlipidemia, Neurofibromatosis, Sickle cell disease. Alcohol use: Denies EtOH useDrug use: Denies recreational drugsSmoking status for patients 13 years old or older: Never SmokerOther social history: Primary family support, , retired, lives alone and daughter lives 1/2 hr away and involved in her careAllergies:Coded Allergies:aspirin (NAUSEA 12/14/23)cefdinir (NAUSEA 12/14/23)codeine (NAUSEA 12/14/23)morphine (NAUSEA 12/14/23) Review of Systems ROSConstitutional:Reports other (hip leg pain), Denies chills, Denies fatigue, Denies fever, Denies generalized weakness, Denies lethargy, Denies malaise, Denies recent wt loss ObjectiveVS/I O:Last Documented: Result Date Time Pulse Ox 97 12/13 152 B/P 176/69 12/13 1529 B/P Mean 104.7 12/13 1529 Temp 36.9 12/13 1529 Pulse 65 12/13 1529 Resp 17 12/13 1529 O2 Delivery Nasal cannula 12/13 0330 O2 Flow Rate 2 12/13 0058 24 hour I O ending at 0700: 12/13 0700 12/12 1900 Intake Total Output Total Balance Patient 85 kg Weight Weight Bed scale Measurement Method PATIENT WEIGHT: Weight (lb): Weight (oz): Weight (kg): 85.000 General appearance: alert, awake, pleasant, conversational, mental status normal, appear well nourished and not cachecticNeuro/PRODUCT SAFETY LEAD: alert, oriented X 3, CN II-XII intact, EOMI, PERRL, normal speech, LLE 5/5, RLE 2/5 proximally and 4+/5 distally, questionable sensory level on theright at T8/9 level with slightly decreased touch sensation. Diagnosis, Assessment PlanFree Text A P:73 years old lady with recently diagnosed (in this admission) widespread metastatic disease from breast cancer diagnosed and managed for the past 10 years. Patient has several osteolytic lesions leading to pathological fractures.As far as her spine is concerned, she has multilevel osteolytic lesions with significant epidural component but no gross collase of vertebral bodies. There is severe cord compression even seen in CT scan which greatly increases her riskof impending paraplegia.Once the MRI is performed, I shall have a much better sense about the risk-benefit ratio of palliative spinal surgical procedure (thoracic laminectomy, with or without instrumented stabilization) with the main goal of preventing dev. of paraplegia which may be important for her quality of life, unless life expectancy is less than 2 months, soecially since she still has relatively good BLE motor function. Discussed with patient, her daughter, Dr. Villatoro and RN. We shall await MRI, hopefully done by today, as per my discussion with the vibration technician. If she gets her hip fracture addressed surgically by [place] (Dr. Hurtado), it is imperative that adequate spinal precautions are being taken during positioning in the OR for her hip surgery. at 1733 [facility] #:[id number] OF REPORTUVMsysebuvmkln6976-41-69U02:05:00G.[id number] [id number] for patient bbpiVOFKJZUDZURWCX3489-18-23A30:33:53 [facility] 2023-12-14 16:36:00 [id number] wjoLyYm9MEgwSMOKl f0Gm6dLME77hGNXlkCt7914-80-27W82:36:[id number] [address] PATIENT NAME: JUSTYNA GAMING ADMIT DATE: 12/13/23ACCOUNT NO: [id number] ROOM NO: [facility] AGE: 73 REPORT TYPE: eELECTROCARDIOGRAM REPORT SEX: F ADMITTING PHYSICIAN:Marques Lim MD ATTENDING PHYSICIAN:Mirna Delcid DO Order:[id number] Reason : PRE OP PROTOCOL Test Date/Time Stamp:WedDec 14 2023 16:36:41Blood Pressure : / mmHGVent. Rate : 067 BPM Atrial Rate : 067 BPM P-R Int : 156 ms QRS Dur : 084 ms QT Int : 412 ms P-R-T Axes : 071 -31 077 degrees QTc Int : 435 ms Sinus rhythm with marked sinus arrhythmiaLeft axis deviationNonspecific ST and T wave abnormalityAbnormal ECGNo previous ECGs availableConfirmed by WILLIAM GARCIA MD ([id number]) on 12/14/2023 6:35:48 PM Referred By: Mirna Delcid Confirmed by:WILLIAM GARCIA MD at 1835 PATIENT NAME: JUSTYNA GAMING .[id number] ble for patient olfnVVSUWKVBQBKRRI2267-30-43J66:36:09 [facility] 2023-12-14 16:27:00 [id number] dlbpRjfVn7VXFUSq3 dcOhh5UHee126fnMIb62121-41-88V20:27:00 [facility] ([facility])Tevin/Oncology Consult NoteREPORT#:[id number] REPORT STATUS: SignedREPORT INITIALIZATION DATE:12/14/23 TIME: 1627 PATIENT: JUSTYNA GAMING UNIT #: [id number]#: [id number] [address] [birth year] AGE: 73 SEX: F ATTEND: Mirna Delcid DOADM AUTHOR: Leanna Villatoro MDREPT SERVICE DT/TIME: 12/14/23 4426* ALL edits or amendments must be made on the electronic/computer document * See AddendumHistory of Present IllnessRequesting clinician: Dr Schrader for consult:metastatic malignancyChief complaint:weakness and fall with pathological fracture.PCP:PCP: No Primary or Family Physician HPI:This vanita pelasant 73 yo woman with h/o bilateral breast cancer HR positive ? Her [address] positive high risk disease at presentation diagnosed in 2013. He was under care of DR Mcqueen at [facility]. she has not been on endocrine therapy due to poor tolerance. She presnets to hospital with fall and right hip pathological fracture. CT cap shows extensive lytic bone disease, renal mass, mediastinal adenopathy, spinal stenosis in T 7-10 area. She reports some back pain. unable to move her LE now due to hip fracture and prior to this was able to walk using walker. History - Adult longitudinalPast medical history:Reports: Cancer, Hypertension, Thyroid disorder. Additional medical history:Matheus breast cancer.Smoking status for patients 13 years old or older: Never SmokerMedications:Home Medications:Medication Dose/Rte/Freq Days Qty Entered Last Max Daily Dose Reviewed ALBUTEROL (Unknown Dose) 12/14/23 12/14/23 (ALBUTEROL HFA 90 0355 0356 MCG/ACT)Strength: (UnknownStrength) INHALER Current Hospital Medications:Anti-Infective Agents Sig/Fozia Start time Last Medication Dose Route Stop Time Status Admin Cefazolin Sodium 2 GM PREOP ONCALL 12/14 0500 CKD (KEFZOL OR ANCEF) IV 12/14 2359 Azithromycin 500 MG Q24H 12/13 0300 AC 12/13 (ZITHROMAX) IV 12/16 0259 0353 Sodium Chloride 250 ML (SODIUM CHLORIDE 0.9%) Autonomic Drugs Sig/Fozia Start time Last Medication Dose Route Stop Time Status Admin Albuterol/Ipratropium 3 ML RTQ4H PRN PRN 12/13 0300 AC (DUONEB) NEB 03/13 0259 Cardiovascular Drugs Sig/Fozia Start time Last Medication Dose Route Stop Time Status Admin Losartan Potassium 25 MG DAILY 12/13 1603 AC (COZAAR) PO 03/14 0859 Hydralazine HCl 10 MG Q6H PRN PRN 12/13 0300 AC (APRESOLINE) IV 03/13 0259 Hydralazine HCl 10 MG X1ED STA 12/12 2201 DC 12/12 (APRESOLINE) IV 12/12 220 2230 Central Nervous System Agents Sig/Fozia Start time Last Medication Dose Route Stop Time Status Admin Hydromorphone HCl 0.5 MG Q3H PRN PRN 12/13 1315 AC (DILAUDID) IV 12/18 1314 Acetaminophen 1,000 MG PREOP ONCALL 12/13 1245 CKD (TYLENOL EXTRA PO 03/13 1244 STRENGTH) Celecoxib 200 MG PREOP ONCALL 12/13 1245 CKD (CeleBREX) PO 01/12 2359 Gabapentin 200 MG PREOP ONCALL 12/13 1245 CKD (NEURONTIN) PO 01/12 2359 Acetaminophen 650 MG Q4H PRN PRN 12/13 0230 AC 12/13 (TYLENOL) PO 03/13 0229 1217 Hydromorphone HCl 1 MG X1ED STA 12/12 2201 DC 12/12 (DILAUDID) IV 12/12 2202 2231 Diagnostic Agents Sig/Fozia Start time Last Medication Dose Route Stop Time Status Admin Iopamidol 150 ML .STK-MED ONE 12/12 2338 DC 12/12 (ISOVUE-300 100ML) IV 12/12 2339 2338 Electrolytic, Caloric, And Dionisio Sig/Fozia Start time Last Medication Dose Route Stop Time Status Admin Hydrochlorothiazide 12.5 MG DAILY 12/13 1615 AC (hydroCHLOROthiazide) PO 03/13 1614 Lactated Ringer's 1,000 ML PREOP ONCALL 12/13 1245 AC (LACTATED RINGERS) IV 03/13 1244 Sodium Chloride 20 ML ASDIR 12/13 1245 AC (SODIUM CHLORIDE) IV 12/14 2359 Sodium Chloride 1,000 ML .[id number] 12/13 0230 AC 12/13 (SODIUM CHLORIDE IV 03/13 0229 0353 0.9%) Eye, Ear, Nose And Throat (Een Sig/Fozia Start time Last Medication Dose Route Stop Time Status Admin Dexamethasone Sodium 4 MG Q6H 12/13 1600 AC Phosphate IV 03/13 1559 (DECADRON) Dexamethasone Sodium 8 MG ONCE ONE 12/13 1045 DC 12/13 Phosphate IV 12/13 1046 1216 (DECADRON) Gastrointestinal Drugs Sig/Fozia Start time Last Medication Dose Route Stop Time Status Admin Al Hydrox/Mg Hydrox/ 30 ML Q4H PRN PRN 12/13 0230 AC Simethicone PO 03/13 229 (MYLANTA) Docusate Sodium 100 MG BID PRN PRN 12/13 023 AC (COLACE) PO 03/13 229 Ondansetron HCl 4 MG X1ED STA 12/12 2201 DC 12/12 (ZOFRAN) IV 12/12 Allergies:Coded Allergies:aspirin (NAUSEA 12/14/23)cefdinir (NAUSEA 12/14/23)codeine (NAUSEA 12/14/23)morphine (NAUSEA 12/14/23) Objective Physical ExamVS:Vital Signs Date Temp Pulse Resp B/P B/P Mean Pulse Ox FiO2 12/12-12/13 36.3-36.9 55-66 15-18 161-198/53-71 0.0-110 90-100 Last Documented: Result Date Time Pulse Ox 97 12/13 1529 B/P 176/69 12/13 1529 B/P Mean 104.7 12/13 1529 Temp 36.9 12/13 1529 Pulse 65 12/13 1529 Resp 17 12/13 1529 O2 Delivery Nasal cannula 12/13 0330 O2 Flow Rate 2 12/13 0058 PATIENT WEIGHT: Weight (lb): Weight (oz): Weight (kg): 85.000 General appearance: alert, awake, orientedHEENT: pupils reactive to lightCardiovascular: regular rate and rhythm, normal heart soundsRespiratory: aerating well, symmetric expansionAbdomen: non-tender, softExtremities: limited exam . limited movement due to paina nd fracture ResultsFindings/Data:Laboratory Tests 12/14/23 1313:[Embedded Image Not Available] 12/13/23 2254:[Embedded Image Not Available]Laboratory Tests 12/13 12/13 12/12 1313 0259 2254 Chemistry Sodium (134 - 147 mEq/L) 139 Potassium (3.4 - 5.0 mEq/L) 3.8 Chloride (100 - 108 mEq/L) 107 Carbon Dioxide (21 - 33 mEq/l) 24 Anion Gap (0 - 20) 12 BUN (7 - 25 mg/dL) 35 H Creatinine (0.6 - 1.3 mg/dL) 1.2 1.2 Glomerular Filtr Rate (70 - 80) 47.5 L Glucose (77 - 141 mg/dL) 124 Calcium (8.0 - 10.5 mg/dL) 11.0 H Total Bilirubin (0.0 - 1.0 mg/dL) 1.20 H AST (8 - 34 IUnit/L) 44 H ALT (10 - 49 IUnit/L) 30 Total Alk Phosphatase (20 - 125 IUnit/L) 167 H Total Protein (6.4 - 8.2 g/dL) 6.5 Albumin (3.4 - 5.0 g/dL) 3.50 PTH Intact (14.0 - 72.0 pg/mL) 11.5 L Laboratory Tests 12/12 2254 Coagulation INR (0.8 - 1.2) 1.2 PT Patient/Control Mix (9.3 - 12.9 SECONDS) 13.3 H Laboratory Tests 12/12 2254 Hematology WBC (4.5 - 11.0 x10 3/uL) 6.0 RBC (3.54 - 5.02 x10 6/uL) 3.76 Hgb (11.0 - 15.0 g/dL) 11.3 Hct (33.0 - 45.0 %) 33.3 MCV (81.0 - 99.0 fL) 88.6 MCH (27.0 - 33.0 pg) 30.1 MCHC (33.0 - 37.0 g/dL) 33.9 RDW (11.5 - 14.5 %) 14.0 Plt Count (150 - 400 x10 3/uL) 150 MPV (7.0 - 9.0 fL) 10.5 H Neut % (Auto) (56.0 - 77.0 %) 83.0 H Lymph % (Auto) (14.0 - 32.0 %) 10.1 L Barrow % (Auto) (4.8 - 9.0 %) 5.8 Eos % (Auto) (0.3 - 3.7 %) 0.3 Baso % (Auto) (0.0 - 2.0 %) 0.3 Neut # (Auto) (2.0 - 7.6 x10 3/uL) 4.98 Lymph # (Auto) (1.0 - 3.8 x10 3/uL) 0.61 L Barrow # (Auto) (0.1 - 0.8 x10 3/uL) 0.35 Eos # (Auto) (0.0 - 0.2 x10 3/uL) 0.02 Baso # (Auto) (0.0 - 0.2 x10 3/uL) 0.02 Abs Immat Gran (auto) (0.00 - 0.03 x10 3/uL) 0.03 Immature Gran % (0.0 - 2.0 %) 0.5 Nucleated RBC % (0 - 0 %) 0.0 Nucleated RBCs # (Man) (0.0 - 0.1 x10 3/uL) 0.00 Radiology data:Recent Impressions:RADIOLOGY - XR HIP MATHEUS W/PELVIS 2-3 VIEWS 12/12 2209 Report Impression - Status: SIGNED Entered: 12/13/20232245 IMPRESSION:Subcapital right femoral fracture.Impression By: Elizabeth Chu M.D.RADIOLOGY - XR FEMUR 2 VIEWS BI 12/12 2209 Report Impression - Status: SIGNED Entered: 12/13/20232245 IMPRESSION:Subcapital right femoral fracture.Impression By: Elizabeth Chu M.D.CAT SCAN - CT LOWER EXTRM W/CON RT 12/12 2333 Report Impression - Status: SIGNED Entered: 12/14/2023 0035 IMPRESSION: Extensive lytic osseous metastatic disease. Acute pathologic subcapital right femoral neck fracture. Subacute appearing right superior and inferior pubic rami fractures.Impression By: Leonela White M.D.CAT SCAN - CT ABD PELVIS W WO CONT 12/12 2333 Report Impression - Status: SIGNED Entered: 12/14/2023 0027 IMPRESSION: Markedly severe diffuse predominantly lytic osseous metastaticdisease. At T7-T9, there is associated mass within spinal canalresulting in severe spinal canal stenosis. Acute pathologic subcapital right femoral neck fracture. Acute appearing fracture of coracoid process of right scapula. Subacute appearing right superior and inferior pubic rami fractures. Mediastinal and right hilar lymphadenopathy. Findings consistent with mild pulmonary edema and air trapping. Atelectasis and/or pneumonia in right lower lobe. Indeterminate liver lesion suspicious for metastasis. Enhancing right renal lesion suspicious for renal cell carcinoma. Leftrenal lesion does not meet criteria for enhancement suggestinghyperdense cyst. Impression By: Leonela White M.D.CAT SCAN - CT CHEST W W/O CONT 12/124 Report Impression - Status: SIGNED Entered: 12/14/2023 0027 IMPRESSION: Markedly severe diffuse predominantly lytic osseous metastaticdisease. At T7-T9, there is associated mass within spinal canalresulting in severe spinal canal stenosis. Acute pathologic subcapital right femoral neck fracture. Acute appearing fracture of coracoid process of right scapula. Subacute appearing right superior and inferior pubic rami fractures. Mediastinal and right hilar lymphadenopathy. Findings consistent with mild pulmonary edema and air trapping. Atelectasis and/or pneumonia in right lower lobe. Indeterminate liver lesion suspicious for metastasis. Enhancing right renal lesion suspicious for renal cell carcinoma. Leftrenal lesion does not meet criteria for enhancement suggestinghyperdense cyst. Impression By: Leonela White M.D.CAT SCAN - CT LOWER EXTRM W/O C RT 12/125 Report Impression - Status: SIGNED Entered: 12/14/2023 0036 IMPRESSION: Extensive lytic osseous metastatic disease. Acute pathologic subcapital right femoral neck fracture. Subacute appearing right superior and inferior pubic rami fractures.Impression By: Leonela White M.D. Diagnosis, Assessment Plan Free Text DxA P NotesFree Text DxA P Notes:1. Breast cancer 2. Metastatic malignancy likely recurrent breast 3. Spinal stenosis due to metastaic disease 4. pathological hip fracture I d/w patient, daughter and son at bedside.she has extensive disease I agree with initial management of her hip to help with her fracture.request tissue for path confirmationa nd molecular tumor profiling.I will obtaina nd review her [facility] records for initial cancer history.start dex 4mg TID IVspoke to neurosurgery DR Worrell.she has rather extensive area which will require a long surgery and recovery andpost op management will be challenging.requested MRI spineI will also d/w XRT oncology once MRI spine available to see if XRT to spine will help with disease control. I did inform patient and family prognosis with out treatment is few months. If this is breast cancer and ER / Her 2 positive she has several good treatment options that can prolong her survival in the order of years. will need to wait on path and see how her performance status is. also recommend MRI brain if not already doen due to extensive metastatic disease. at 1638 Addendum 1: 12/14/23 1640 by Leanna Villatoro MD hypercalcemia:ordered zometa 4mg iv x 1 monitor calcium. at 1640 RPT #:[id number] OF REPORTKYFfcicaefkecm1760-92-22P01:27:00G.[id number]- 1359AVAvailable for patient fzwiKGVVASZZQXOHVF1837-53-77R33:39:13 [facility] 2023-12-14 15:57:00 [id number]//ZmwhoH7 OZDkxXcbtvvn3pQ76 wczhbtAnasraK9bijJB2910-83-04B59:57:00 [facility] ([facility])Clinical NoteREPORT#:[id number] REPORT STATUS: SignedREPORT INITIALIZATION DATE:12/14/23 TIME: 1556 PATIENT: JUSTYNA GAMING UNIT #: [id number]#: [id number] [address] [birth year] AGE: 73 SEX: F ATTEND: Mirna Delcid DOADM AUTHOR: Mirna Delcid DOREPT SERVICE DT/TIME: 12/14/231556* ALL edits or amendments must be made on the electronic/computer document * Clinical NoteNote:Patient seen and evaluated by admitting physician this AM. Radiology findings including extensive metastaic bone disease, R RCC and liver lesion discussed with patient and oncology. Ortho planning for R hip arthroplasty in AM. Neurosurgery consulted for spinal mass with severe thoracic spinal stenosis. Patient reports known severe stenosis in cervical and lumbar spine. Patient ableto move lower extremities but states she has not been walking secondary to pain.She denies bladder and bowel incontinence. Decadron started. MRI ordered per neurosurgery. Pain medication increased and Blood pressure medication added. at 1604 RPT #:[id number] OF REPORTCLClinical lanc3907-91-69J36:57:00G.[id number] for patient bjjbATHENPJSNPMWJX0896-56-92C17:06:44 [facility] 2023-12-14 02:24:00 [id number]+q O37LtDP3ZCUXfupi+ HA41XYf0X8+JA+UMVWA4299-59-63A21:24:00 [facility] PhysicalREPORT#:[id number] REPORT STATUS: SignedREPORT INITIALIZATION DATE:12/14/23 TIME: 223 PATIENT: JUSTYNA GAMING UNIT #: [id number]#: [id number] [address] [birth year] AGE: 73 SEX: F ATTEND: Maruqes Lim MDADM AUTHOR: Marques Lim MDREPT SERVICE DT/TIME: 12/14/23223* ALL edits or amendments must be made on the electronic/computer document * History of Present Illness HPIChief complaint:Right hip painHPI:Patient is a 73 years old lady with past medical history of hypertension, hypothyroidism, asthma, spinal stenosis and breast cancer. [facility] account of inability to walk of about 90 days duration. She also noted sudden episode of right hip pain. This pain is worse with walking. Pain became unbearable and it was difficult for patient to ambulate. She deniesany history of fall. Imaging demonstrated right hip fracture and also right femoral fracture. Orthopedic unit has been consulted. Patient is being admitted for further evaluation of suspected pathological fracture. She has a history of breast cancer. Her last visit to her doctor was in April 2023.Hx Obtained From Patient History Past Medical Surgical HxPatient History: 1. Right femoral fracture Social HistorySmoking status for patients 13 years old or older: Never Smoker Medication/Allergy-Vaccine HxAllergies:Coded Allergies:aspirin (NAUSEA 12/14/23)cefdinir (NAUSEA 12/14/23)codeine (NAUSEA 12/14/23)morphine (NAUSEA 12/14/23) Review of SystemsConstitutional:Reports: fatigue. Denies: chills, fever, recent wt loss. Eyes:Denies: redness, discharge, itching. Respiratory:Denies: hemoptysis, pleurisy, wheezing. Cardiovascular:Denies: chest pain, palpitations. GI:Denies: constipation, diarrhea, nausea, vomiting. Musculoskeletal:Reports: joint pain, neck pain. Neuro:Reports: dizziness, gait problem. Denies: confusion, seizure. All systems rev neg: except as noted OBJECTIVEMedications:Active Meds + DC'd Last 24 HrsAcetaminophen (TYLENOL) 650 MG Q4H PRN PRN PO Al Hydrox/Mg Hydrox/Simethicone (MYLANTA) 30 ML Q4H PRN PRN PO Docusate Sodium (COLACE) 100 MG BID PRN PRN PO Sodium Chloride (SODIUM CHLORIDE 0.9%) 1,000 ML .[id number] IV Iopamidol (ISOVUE-300 100ML) 150 ML .STK-MED ONE IV (DC) Hydralazine HCl (APRESOLINE) 10 MG X1ED STA IV (DC) Hydromorphone HCl (DILAUDID) 1 MG X1ED STA IV (DC) Ondansetron HCl (ZOFRAN) 4 MG X1ED STA IV (DC) ResultsFindings/Data:Laboratory Tests: 12/124 Chemistry Sodium (134 - 147 mEq/L) 139 Potassium (3.4 - 5.0 mEq/L) 3.8 Chloride (100 - 108 mEq/L) 107 Carbon Dioxide (21 - 33 mEq/l) 24 Anion Gap (0 - 20) 12 BUN (7 - 25 mg/dL) 35 H Creatinine (0.6 - 1.3 mg/dL) 1.2 Glomerular Filtr Rate (70 - 80) 47.5 L Glucose (77 - 141 mg/dL) 124 Calcium (8.0 - 10.5 mg/dL) 11.0 H Total Bilirubin (0.0 - 1.0 mg/dL) 1.20 H AST (8 - 34 IUnit/L) 44 H ALT (10 - 49 IUnit/L) 30 Total Alk Phosphatase (20 - 125 IUnit/L) 167 H Total Protein (6.4 - 8.2 g/dL) 6.5 Albumin (3.4 - 5.0 g/dL) 3.50 Coagulation INR (0.8 - 1.2) 1.2 PT Patient/Control Mix (9.3 - 12.9 SECONDS) 13.3 H Hematology WBC (4.5 - 11.0 x10 3/uL) 6.0 RBC (3.54 - 5.02 x10 6/uL) 3.76 Hgb (11.0 - 15.0 g/dL) 11.3 Hct (33.0 - 45.0 %) 33.3 MCV (81.0 - 99.0 fL) 88.6 MCH (27.0 - 33.0 pg) 30.1 MCHC (33.0 - 37.0 g/dL) 33.9 RDW (11.5 - 14.5 %) 14.0 Plt Count (150 - 400 x10 3/uL) 150 MPV (7.0 - 9.0 fL) 10.5 H Neut % (Auto) (56.0 - 77.0 %) 83.0 H Lymph % (Auto) (14.0 - 32.0 %) 10.1 L Barrow % (Auto) (4.8 - 9.0 %) 5.8 Eos % (Auto) (0.3 - 3.7 %) 0.3 Baso % (Auto) (0.0 - 2.0 %) 0.3 Neut # (Auto) (2.0 - 7.6 x10 3/uL) 4.98 Lymph # (Auto) (1.0 - 3.8 x10 3/uL) 0.61 L Barrow # (Auto) (0.1 - 0.8 x10 3/uL) 0.35 Eos # (Auto) (0.0 - 0.2 x10 3/uL) 0.02 Baso # (Auto) (0.0 - 0.2 x10 3/uL) 0.02 Abs Immat Gran (auto) (0.00 - 0.03 x10 3/uL) 0.03 Immature Gran % (0.0 - 2.0 %) 0.5 Nucleated RBC % (0 - 0 %) 0.0 Nucleated RBCs # (Man) (0.0 - 0.1 x10 3/uL) 0.00 Laboratory Tests 12/13/234:[Embedded Image Not Available] Radiology data:Recent Impressions:RADIOLOGY - XR HIP MATHEUS W/PELVIS 2-3 VIEWS 12/12 2209 Report Impression - Status: SIGNED Entered: 12/13/20232245 IMPRESSION:Subcapital right femoral fracture.Impression By: Elizabeth Chu M.D.RADIOLOGY - XR FEMUR 2 VIEWS BI 12/12 2209 Report Impression - Status: SIGNED Entered: 12/13/20232245 IMPRESSION:Subcapital right femoral fracture.Impression By: Elizabeth Chu M.D.CAT SCAN - CT LOWER EXTRM W/CON RT 12/12 2333 Report Impression - Status: SIGNED Entered: 12/14/2023 0035 IMPRESSION: Extensive lytic osseous metastatic disease. Acute pathologic subcapital right femoral neck fracture. Subacute appearing right superior and inferior pubic rami fractures.Impression By: Leonela White M.D.CAT SCAN - CT ABD PELVIS W WO CONT 12/12 2333 Report Impression - Status: SIGNED Entered: 12/14/2023 0027 IMPRESSION: Markedly severe diffuse predominantly lytic osseous metastaticdisease. At T7-T9, there is associated mass within spinal canalresulting in severe spinal canal stenosis. Acute pathologic subcapital right femoral neck fracture. Acute appearing fracture of coracoid process of right scapula. Subacute appearing right superior and inferior pubic rami fractures. Mediastinal and right hilar lymphadenopathy. Findings consistent with mild pulmonary edema and air trapping. Atelectasis and/or pneumonia in right lower lobe. Indeterminate liver lesion suspicious for metastasis. Enhancing right renal lesion suspicious for renal cell carcinoma. Leftrenal lesion does not meet criteria for enhancement suggestinghyperdense cyst. Impression By: Leonela White M.D.CAT SCAN - CT CHEST W W/O CONT 12/12 2333 Report Impression - Status: SIGNED Entered: 12/14/2023 0027 IMPRESSION: Markedly severe diffuse predominantly lytic osseous metastaticdisease. At T7-T9, there is associated mass within spinal canalresulting in severe spinal canal stenosis. Acute pathologic subcapital right femoral neck fracture. Acute appearing fracture of coracoid process of right scapula. Subacute appearing right superior and inferior pubic rami fractures. Mediastinal and right hilar lymphadenopathy. Findings consistent with mild pulmonary edema and air trapping. Atelectasis and/or pneumonia in right lower lobe. Indeterminate liver lesion suspicious for metastasis. Enhancing right renal lesion suspicious for renal cell carcinoma. Leftrenal lesion does not meet criteria for enhancement suggestinghyperdense cyst. Impression By: Leonela White M.D.CAT SCAN - CT LOWER EXTRM W/O C RT 12/12 2334 Report Impression - Status: SIGNED Entered: 12/14/2023 0036 IMPRESSION: Extensive lytic osseous metastatic disease. Acute pathologic subcapital right femoral neck fracture. Subacute appearing right superior and inferior pubic rami fractures.Impression By: Leonela White M.D. Free Text PE NotesFree Text PE Notes:General/Const Awake, Alert, orientedHENT Head atraumatic, normocephalic, ears/nose/throat airway patent, TMs clear bilaterallyMS Neck Neck Supple, no swelling, no tenderness to palpationResp/Chest CTAB, No respiratory distress, no rales, no rhonchi, no wheezingCardiovascular Normal rate, regular rhythm, heart sounds. No rubs murmurs gallopsAbdomen/GI Normal bowel sounds, soft, nontender, nondistended. No rebound or guardingMSNo bony deformity, 2+ DP pulses bilaterally. Some mild swelling to the right lower extremitySkin Skin Warm, Dry, no abrasions, rashes, lacerationsNeurologic Neurologic Oriented X3, Speech NL, no focal neuro deficits, CN 2-12 intact, 5/5 strength, sensation intact Diagnosis, Assessment PlanProblem List/A P: 1. Right femoral fracture Free Text A P:AssessmentRight femoral fractureRight hip fractureMultiple lytic bone lesionsHypercalcemiaHypertensionAsthmapneumoniaHistory of breast cancer PlansReviewed imaging reports, concerning for metastatic processOrthopedic consulted in the ERConsider oncology consult in the morningAnalgesia as toleratedIv zithromaxDuoneb breathing treatment q4h prnSupp O2 as neededIV fluid, monitor serum calcium. PTH orderedIV prn hydralazine for elevated blood pressure, resume home medications when updated Further care per clinical courseCODE STATUS: full code. at 0621 RPT #:[id number] OF REPORTHPHistory and physical [id number]:24:00G.[id number] ble for patient [id number]:21:56 [facility] 2023-12-13 21:43:00 [id number] +[id number]:43:00 [facility] ([facility])EMERGENCY PROVIDER REPORTREPORT#:[id number] REPORT STATUS: SignedDATE:12/13/23 TIME: 2142 PATIENT: JUSTYNA GAMING UNIT #: [id number]#: [id number] ROOM/BED: [place] [id number]: 73 SEX: F PCP PHYS: No Primary or Family PhysicianSERVICE AUTHOR: Randee Joe MD * ALL edits or amendments must be made on the electronic/computer document * HPI-Extremity Prob Lower GeneralInitial Greet Date/Time 12/13/232057 PresentationChief Complaint Hip problem R, Thigh problem R Free Text HPI NotesFree Text HPI [id number] female with a history of hypertension, hypothyroidism, breast cancercurrently in remission who presents to the emergency department with 9-day history of right leg pain. She woke up and was unable to bear weight however her daughter was out of town so she waited until today to presents to the outside facility where she was found to have a subcapital femoral neck fracture with displacement and hematoma. Prior to arrival she was given Dilaudid, Zofranand Toradol. Patient denies any trauma. Review of Systems ROS StatementsAll systems rev neg except as marked. Focused Review of SystemsMusculoskeletalReports: Extremity pain. Past Medical History - AdultStated Complaint RIGHT HIP FXAllergiesCoded Allergies:No Known Allergies (12/13/23) Past Medical History:Reports: Cancer, Hypertension, Thyroid disorder. Physical Exam Vital SignsVital SignsFirst Documented: Result Date Time Pulse Ox 93 12/12 2054 B/P 198/66 12/12 2054 B/P Mean 110 12/12 2054 O2 Delivery Room air 12/12 2054 Temp 36.3 12/12 2054 Pulse 61 12/12 2054 Resp 18 12/12 2054 Last Documented: Result Date Time Pulse Ox 93 12/12 2054 B/P 198/66 12/12 2054 B/P Mean 110 12/12 2054 O2 Delivery Room air 12/12 2054 Temp 36.3 12/12 2054 Pulse 61 12/12 2054 Resp 18 12/12 2054 Review of Vital Signs Reviewed, Vital signs normal Free Text PE NotesFree Text PE NotesGeneral/Const Awake, AlertHENT Head atraumatic, normocephalic, ears/nose/throat airway patent, TMs clear bilaterallyMS Neck Neck Supple, no swelling, no tenderness to palpationResp/Chest CTAB, No respiratory distress, no rales, no rhonchi, no wheezingCardiovascular Normal rate, regular rhythm, heart sounds. No rubs murmurs gallopsAbdomen/GI Normal bowel sounds, soft, nontender, nondistended. No rebound or guardingMSNo bony deformity, 2+ DP pulses bilaterally. Some mild swelling to the right lower extremitySkin Skin Warm, Dry, no abrasions, rashes, lacerationsNeurologic Neurologic Oriented X3, Speech NL, no focal neuro deficits, CN 2-12 intact, 5/5 strength, sensation intact Re-Evaluation MDM ED CourseMedication(s) OrderedMedication(s) Ordered:Cardiovascular Drugs Sig/Fozia Start time Last Medication Dose Route Stop Time Status Admin Hydralazine HCl 10 MG X1ED STA 12/12 2201 DC 12/12 IV 12/12 Central Nervous System Agents Sig/Fozia Start time Last Medication Dose Route Stop Time Status Admin Hydromorphone HCl 1 MG X1ED STA 12/12 2201 DC 12/12 IV 12/12 Gastrointestinal Drugs Sig/Fozia Start time Last Medication Dose Route Stop Time Status Admin Ondansetron HCl 4 MG X1ED STA 12/12 2201 DC 12/12 IV 12/12 ConsultationConsultation Referral/Consult Name Alirio Hurtado MD Requested Call Time 2199 Requested Call Date 12/13/23 Call Returned Call returned Free Text Consult NotesRecommended getting a CT with and without of the chest, abdomen, pelvis, x-ray of the femur bilateral and hip bilateral Free Text MDM NotesFree Text MDM [id number] female with a history of hypertension, hypothyroidism, breast cancercurrently in remission who presents to the emergency department with 9-day history of right leg pain. She woke up and was unable to bear weight however her daughter was out of town so she waited until today to presents to the outside facility where she was found to have a subcapital femoral neck fracture with displacement and hematoma. Prior to arrival she was given Dilaudid, Zofranand Toradol. Patient denies any trauma. Vital signs stable. No bony deformity,2+ DP pulses bilaterally. Some mild swelling to the right lower extremity. No further workup needed at this time in the emergency department will admit to hospital medicine and place a consult for orthopedic surgery who recommended getting CT imaging with and without of the chest, abdomen, pelvis, x-rays of thefemur and bilateral hips to rule out metastatic cancer. Inpatient team will follow-up on results. Patient will be admitted at this time. Will also place hematology oncology consult. Patient Discharge Departure Vital Signs/ConditionVital SignsFirst Documented: Result Date Time Pulse Ox 93 12/12 2054 B/P 198/66 12/12 2054 B/P Mean 110 12/12 2054 O2 Delivery Room air 12/12 2054 Temp 36.3 12/12 2054 Pulse 61 12/12 2054 Resp 18 12/12 2054 Last Documented: Result Date Time Pulse Ox 93 12/12 2054 B/P 198/66 12/12 2054 B/P Mean 110 12/12 2054 O2 Delivery Room air 12/12 2054 Temp 36.3 12/12 2054 Pulse 61 12/12 2054 Resp 18 12/12 2054 All vital signs available at the time of this entry have been reviewed. Condition Stable Clinical ImpressionClinical ImpressionPrimary Impression: Right femoral fracture Disposition DecisionHospitalize Hosp Physician Name Marques Lim MD )( Accepts Hospitalization Yes )( Reason for HospitalizationFEMUR FRACTURE, NO TRAUMA )( Accepted Time 2200 )( Accepted Date 12/13/23 Call Information will see patient at 0133RPT #:[id number] OF REPORTEDEmeradvanced care [facility] department [id number]:43:00G.[id number] for patient [id number]:33:38 [facility]
[2024-01-09] MEDS ORDERED: ONDANSETRON 4 MG/2 ML VIAL ONE ×2 (13:59→19:58)
[2024-01-09] MEDS ORDERED: NA CHLORIDE 0.9% 1,000 ML ONE ×2 (14:00→23:24)
[2024-01-09 14:40] LABS: Absolute Lymphocytes (CBC) 0.2 K/uL (0.7-4.9); Absolute Monocytes 0.2 K/uL (0.1-1.3); Absolute Neutrophil 7.3 K/uL (1.8-8.0); Basophils % 0.4 % (0-1.3); Hematocrit 41.2 % (36.0-45.0); Hemoglobin 13.6 g/dL (12.0-15.0); Lymphocytes % 2.9 % (15.3-44.8); MCH 30.4 pg (27.0-35.0); MCHC 33.1 g/dL (32.0-36.0); MCV 91.8 fL (80-100); Monocytes % 2.3 % (3.3-12.3); Neutrophils % 94.4 % (41.7-73.7); Platelets 84 thou/uL (152-406); RBC Red Blood Cell Count 4.48 M/uL (3.86-4.86)
[2024-01-09 14:50] LABS: Albumin 2.9 g/dL (3.4-5.0); Anion Gap 9.9 mEq/L (5.0-15.0); Bilirubin Total 1.2 mg/dL (0.2-1.0); Globulin 2.9 g/dL (2.3-3.5); Potassium 4.9 mEq/L (3.5-5.1); Protein, Total 5.8 g/dL (6.4-8.2)
[2024-01-09] MEDS ORDERED: FENTANYL CITR 100 MCG/2 ML ONE ×2 (15:38→18:41)
--- NOTE | 2024-01-09 15:40 | RAD REPORT ---
EXAM DESCRIPTION: CTAbdomen Pelvis W Contrast - 01/09/2024 3:24 pm CLINICAL HISTORY: ABD PAIN COMPARISON: No comparisons TECHNIQUE: CT of the abdomen and pelvis was performed with IV contrast. All CT scans are performed using dose optimization technique as appropriate and may include automated exposure control or mA/KV adjustment according to patient size. FINDINGS: Lower chest: Small right pleural effusion. Liver: Indeterminate lesion in the right hepatic lobe along the capsule measuring 2.1 cm Biliary: No biliary ductal dilatation. Stomach: No significant focal abnormality. Duodenum: No significant focal abnormality. Pancreas: No significant abnormality. Spleen: No significant abnormality. Adrenal: No suspicious lesions. Kidney/ureter: No hydronephrosis. No renal calculi. 18 mm indeterminate right renal mass suspicious f or neoplasm. Other lesions are likely benign. Retroperitoneum: No retroperitoneal adenopathy. Vascular: No aneurysm. Bowel: Moderate colonic stool.. There is some gas localized to the proximal sigmoid Peritoneum: Moderate free fluid as well as moderate free air. Bladder: Grossly unremarkable. Reproductive: No adnexal masses. Bones: Widespread osseous metastatic disease. Right hip arthroplasty. Remote right obturator ring fra cture. Other: n/a IMPRESSION: 1. Pneumoperitoneum consistent with perforation of a hollow viscus. Though the source is not entirely certain, some gas is localized in the region of the proximal sigmoid which could be the source. 2. Widespread osseous metastatic disease . Reportedly, the patient has a history breast cancer. 3. Small solid-appearing right renal mass concerning for a renal cell carcinoma. Nonemergent urologic referral suggested. 4. Indeterminate liver lesion. This can be further assessed with nonemergent MRI if clinically indica danielle. Regarding #1, conveyed to Charlotte Mcleod by Dr. Pearce at 1530 on 01/09/24
[2024-01-09] MEDS ORDERED: NA CHLORIDE 0.9% 100 ML ONE (15:48)
[2024-01-09] MEDS ORDERED: PIPERACIL/TAZO 3.375 GM VIAL IV ONE (15:49)
[2024-01-09] MEDS ORDERED: MORPHINE 2 MG/ML SYR ONE (17:00)
[2024-01-09] MEDS ORDERED: PROMETHAZINE INJ 25 MG/ML AMP ONE (17:00)
--- NOTE | 2024-01-09 17:12 | EDPHYS ---
Physician Documentation [facility] Name: Amy Gaming Age: 73 yrs Sex: Female : 1950 Arrival Date: 01/09/2024 Time: 13:28 Bed 15 Private MD: ED Physician Sourav Mcguire HPI: 01/08 13:43 This 73 yrs old Female presents to ER via EMS with complaints of Abdominal Pain. [facility] 13:43 The patient presents with abdominal pain right lower quadrant. Onset: The jh7 symptoms/episode began/occurred 3 day(s) ago. The symptoms do not radiate. 77-year-old female with a past medical history of hypertension and breast cancer with mets to the bone, liver, and kidneys presents to the ER for severe lower abdominal pain for the past 3 days. She denies vomiting, but reports that she has not had a bowel movement in 3 days. She reports that she took an entire bottle of mag citrate 2 hours ago with no relief. Denies chest pain, fever, and shortness of breath.. Historical: - PMHx: 13:49 Hypertensive disorder; Hypothyroidism; ph - Immunization history:: Adult Immunizations unknown. - Infectious Disease History:: Denies. - Social history:: Smoking status: Patient denies any tobacco usage or history of. ROS: 13:43 Constitutional: Per HPI jh7 Exam: 13:43 Head/Face: Normocephalic, atraumatic. Cardiovascular: Regular rate and rhythm with a jh7 normal S1 and S2. No gallops, murmurs, or rubs. Normal PMI, no JVD. No pulse deficits. Respiratory: Lungs have equal breath sounds bilaterally, clear to auscultation and percussion. No rales, rhonchi or wheezes noted. No increased work of breathing, no retractions or nasal flaring. Back: No spinal tenderness. No costovertebral tenderness. Full range of motion. Skin: Warm, dry with normal turgor. Normal color with no rashes, no lesions, and no evidence of cellulitis. MS/ Extremity: Pulses equal, no cyanosis. Neurovascular intact. Full, normal range of motion. Neuro: Awake and alert, GCS 15, oriented to person, place, time, and situation. Motor strength 5/5 in all extremities. Sensory grossly intact. Normal gait. 13:43 Constitutional: The patient appears lethargic, obviously ill, in obvious pain, 13:43 Abdomen/GI: Inspection: abdomen appears normal, Palpation: severe abdominal tenderness, in all quadrants, involuntary guarding, is elicited in the right upper quadrant and left upper quadrant, Vital Signs: 13:43 BP 146 / 52; Pulse 42; Resp 24; Temp 97.1(TE); Pulse Ox 96% on R/A; Weight 81.65 kg; ph Height 5 ft. 3 in. ; 13:57 BP 146 / 78; Pulse 41; Resp 16; Pulse Ox 100% on R/A; Pain 8/10; ld2 14:39 BP 167 / 61; Pulse 39; Resp 18; Pulse Ox 97% ; cp4 15:30 BP 188 / 68; Pulse 38; Resp 18; Pulse Ox 96% ; cp4 16:30 BP 159 / 58; Pulse 37; Resp 18; Pulse Ox 95% ; cp4 17:30 BP 146 / 59; Pulse 38; Resp 18; Pulse Ox 95% ; cp4 13:43 Body Mass Index 31.89 (81.65 kg, 160.02 cm) ph 13:57 Pain Scale: Adult ld2 MDM: 13:29 Patient medically screened. [facility] 15:40 Management of patient was discussed with the following: Disease Education Specialist: Dr. Winn, [facility] surgery. He stated that he was on the way to the hospital and would see the patient and reviewed the CT.. 16:20 Differential diagnosis: bowel obstruction, cholecystitis, Cholelithiasis, [facility] diverticulitis, Mesenteric ischemia or infarction, Peritonitis. Data reviewed: vital signs, nurses notes, lab test result(s), radiologic studies, CT scan. Consideration of Admission/Observation Patient was admitted/placed on observation. I considered the following discharge prescriptions or medication management in the emergency department Medications were administered in the Emergency Department. See MAR. Historians other than the Patient: Daughter/Son: daughter. Counseling: I had a detailed discussion with the patient and/or guardian regarding the historical points, exam findings, and any diagnostic results supporting the discharge/admit diagnosis, the need for further work-up and treatment in the hospital. Response to treatment: the patient's symptoms have mildly improved after treatment. ED course: Dr. Winn requested admission to medicine and to consult him. The patient will be transported to the OR shortly.. 01/08 13:30 Order name: CBC with Diff [facility] 01/08 13:30 Order name: CMP; Complete Time: 14:54 [facility] 01/08 13:30 Order name: Lipase; Complete Time: 14:54 [facility] 01/08 17:40 Order name: Basic Metabolic Panel EDMS 01/08 17:40 Order name: Basic Metabolic Panel EDMS 01/08 17:40 Order name: Basic Metabolic Panel EDMS 01/08 17:40 Order name: Basic Metabolic Panel EDMS 01/08 17:40 Order name: Basic Metabolic Panel EDMS 01/08 17:40 Order name: Basic Metabolic Panel EDMS 01/08 17:40 Order name: Comprehensive Metabolic Panel EDMS 01/08 17:40 Order name: Comprehensive Metabolic Panel EDMS 01/08 17:40 Order name: Comprehensive Metabolic Panel EDMS 01/08 17:40 Order name: Comprehensive Metabolic Panel EDMS 01/08 17:40 Order name: Comprehensive Metabolic Panel EDMS 01/08 17:40 Order name: Comprehensive Metabolic Panel EDMS 01/08 17:40 Order name: Magnesium EDMS 01/08 17:40 Order name: Magnesium EDMS 01/08 17:40 Order name: Magnesium EDMS 01/08 17:40 Order name: Magnesium EDMS 01/08 17:40 Order name: Magnesium EDMS 01/08 17:40 Order name: Magnesium EDMS 01/08 17:40 Order name: Phosphorus EDMS 01/08 17:40 Order name: Phosphorus EDMS 01/08 17:40 Order name: Phosphorus EDMS 01/08 17:40 Order name: Phosphorus EDMS 01/08 17:40 Order name: Phosphorus EDMS 01/08 17:40 Order name: Phosphorus EDMS 01/08 13:30 Order name: CT Abd/Pelvis - IV Contrast Only; Complete Time: 15:42 [facility] 01/08 17:39 Order name: CONS Physician Consult [facility] 01/08 13:30 Order name: IV Saline Lock; Complete Time: 13:57 [facility] 01/08 13:30 Order name: Labs collected and sent; Complete Time: 13:57 [facility] 01/08 14:03 Order name: Labs - recollect needed: recollect all the blood hemolyzed per Chantelle; eb Complete Time: 14:17 01/08 15:54 Order name: EKG - Nurse/Tech; Complete Time: 16:05 jh7 EC:48 Rate is 37 beats/min. Rhythm is regular. Left axis deviation noted. NE interval is jh7 normal at 144 msec. QRS interval is normal. QT interval is prolonged at 510 msec. No Q waves. T waves are Normal. Clinical impression: Sinus bradycardia. Administered Medications: 14:03 Drug: NS 0.9% IV 1000 ml IV at 1 bolus Per protocol; 1000 mL bolus Route: IV; Rate: 1 ld2 bolus; Infused Over: 1 hrs; Site: right forearm; Delivery: Primary tubing; 18:09 Follow up: Response: No adverse reaction; IV Status: Completed infusion cp4 14:03 Drug: Ondansetron IVP 4 mg IVP once; over 2 minutes Route: IVP; Infused Over: 2 mins; ld2 Site: right forearm; 16:12 Follow up: Response: No adverse reaction cp4 14:15 Not Given (Hemodynamic Parameters; Pt's HR is 40. Denies need for further pain meds at ld2 this time.): fentanyl (pf)50 mcg IVP once 15:47 Drug: fentaNYL (PF) IVP 50 mcg IVP once Route: IVP; Site: right antecubital; cp4 16:12 Follow up: Response: No adverse reaction; Pain is decreased cp4 16:11 Drug: Piperacillin-Tazobactam IVPB 3.375 grams IVPB once over 60 mins; (mix in NS 100 cp4 mL) Route: IVPB; Infused Over: 60 mins; Site: right antecubital; 17:15 Follow up: Response: No adverse reaction; IV Status: Completed infusion cp4 17:03 Drug: Promethazine IVP 12.5 mg IVP once Route: IVP; Site: right antecubital; cp4 18:08 Follow up: Response: No adverse reaction cp4 17:03 Drug: morphine IVP or IV 2 mg IVP once over 4 mins Route: IVP; Infused Over: 4 mins; cp4 Site: right antecubital; 18:08 Follow up: Response: No adverse reaction cp4 Disposition: 19:39 Co-signature as Attending Physician, Sourav Mcguire MD I reviewed the patient's care rt provided by the Advanced Practice Provider and agree with the diagnosis and treatment plan. Disposition Summary: 01/09/24 17:12 Hospitalization Ordered Notes: Hospitalization Status: Inpatient Admission [facility] Provider: Aj Bliss [facility] Location: Telemetry/MedSurg (Inpatient) [facility] Condition: Serious [facility] Problem: new [facility] Symptoms: have worsened [facility] Bed/Room Type: [place] [id number] Room Assignment: [facility] Diagnosis - Pneumoperitoneum with peritonitis [facility] Forms: - Medication Reconciliation Form [facility] - SBAR form [facility] - Leadership Thank You Letter [facility] Signatures: Dispatcher [employer] Suze Chris, RN RN Daniella, Conchita Alba, WEIGHT TESTER WEIGHT TESTER [facility] Sourav Mcguire MD MD rt Potter, Christina cp4 Mackenzie Madison RN RN ld2
--- NOTE | 2024-01-09 17:12 | ER ---
Nurse's Notes [facility] Name: Amy Gaming Age: 73 yrs Sex: Female : 1950 Arrival Date: 01/09/2024 Time: 13:28 Bed 15 Private MD: Diagnosis: Pneumoperitoneum with peritonitis Presentation: 01/08 13:43 Chief complaint: EMS states: RLQ pain x a few days, no BM for 3 days, low blood ph pressure at home, did not take BP medication today, did take magnesium citrate for constipation but has not had a bowel movement. Coronavirus screen: Vaccine status: Patient reports receiving the 2nd dose of the covid vaccine. Ebola Screen: No symptoms or risks identified at this time. Initial Sepsis Screen: Does the patient meet any 2 criteria? No. Patient's initial sepsis screen is negative. Does the patient have a suspected source of infection? No. Patient's initial sepsis screen is negative. Risk Assessment: Do you want to hurt yourself or someone else? Patient reports no desire to harm self or others. Onset of symptoms was January 09, 2024. 13:43 Method Of Arrival: EMS: [facility] 13:43 Acuity: NAM 2 ph Triage Assessment: 18:09 General: Appears distressed, Behavior is calm, cooperative, appropriate for age. GI: cp4 Reports Pain is 10 out of 10 on a pain scale. Historical: - PMHx: 13:49 Hypertensive disorder; Hypothyroidism; ph - Immunization history:: Adult Immunizations unknown. - Infectious Disease History:: Denies. - Social history:: Smoking status: Patient denies any tobacco usage or history of. Screenin:38 [facility] ED Fall Risk Assessment (Adult) History of falling in the last 3 months, ph including since admission No falls in past 3 months (0 pts) Confusion or Disorientation No (0 pts) Intoxicated or Sedated No (0 pts) Impaired Gait No (0 pts) Mobility Assist Device Used No (0 pt) Altered Elimination No (0 pt) Score/Fall Risk Level 0 - 2 = Low Risk Oriented to surroundings, Maintained a safe environment, Hourly rounding (assess needs \T\ fall precautionary measures) done. Abuse screen: Denies threats or abuse. Denies injuries from another. Abuse screen: Denies threats or abuse. Nutritional screening: No deficits noted. Tuberculosis screening: No symptoms or risk factors identified. Assessment: 13:53 Pain: Complains of pain in abdomen Pain currently is 9 out of 10 on a pain scale. ld2 Quality of pain is described as crampy, Is continuous. Neuro: No deficits noted. Level of Consciousness is awake, alert, obeys commands, Oriented to person, place, time, situation. Cardiovascular: Reports fatigue, Heart tones S1 S2 present Capillary refill < 3 seconds in bilateral fingers Rhythm is sinus bradycardia Chest pain is denied. Respiratory: Reports shortness of breath at rest on exertion Airway is patent is compromised Trachea midline Respiratory effort is even, unlabored, Respiratory pattern is regular, symmetrical. GI: Abdomen is flat, non-distended, Last BM was January 03, 2024. Last meal Bowel sounds present X 4 quads. Abdomen is tender to palpation X 4 quads. Abd is rigid X 4 quads. Reports lower abdominal pain, upper abdominal pain, constipation, cramping, Pt states having constipation x6 days, taking magnesium citrate this AM without a BM present. +abdominal cramping on all 4 quadrants. Pt denies nausea, vomiting, diarrhea, or fever. : No deficits noted. No signs and/or symptoms were reported regarding the genitourinary system. Musculoskeletal: No deficits noted. No signs and/or symptoms reported regarding the musculoskeletal system. 14:07 Reassessment: Report given to Nicole BERTRAND. ld2 17:12 Reassessment: Dr. Alba at bedside. cp4 Vital Signs: 13:43 BP 146 / 52; Pulse 42; Resp 24; Temp 97.1(TE); Pulse Ox 96% on R/A; Weight 81.65 kg; ph Height 5 ft. 3 in. ; 13:57 BP 146 / 78; Pulse 41; Resp 16; Pulse Ox 100% on R/A; Pain 8/10; ld2 14:39 BP 167 / 61; Pulse 39; Resp 18; Pulse Ox 97% ; cp4 15:30 BP 188 / 68; Pulse 38; Resp 18; Pulse Ox 96% ; cp4 16:30 BP 159 / 58; Pulse 37; Resp 18; Pulse Ox 95% ; cp4 17:30 BP 146 / 59; Pulse 38; Resp 18; Pulse Ox 95% ; cp4 13:43 Body Mass Index 31.89 (81.65 kg, 160.02 cm) ph 13:57 Pain Scale: Adult ld2 ED Course: 13:29 Patient arrived in ED. 7 13:29 [facility]ita Carias [facility] jh7 13:29 Sourav Mcguire MD is Attending Physician. jh7 13:35 Mackenzie Madison, RN is Primary Nurse. ld2 13:49 Triage completed. ph 13:56 No apparent distress. Resting quietly. Awaiting ED provider evaluation. ld2 13:56 Patient has correct armband on for positive identification. Allergy band placed. Fall ld2 risk band placed. Placed in gown. Bed in low position. Call light in reach. Side rails up X 1. Door closed. Warm blanket given. Verbal reassurance given. 13:56 Inserted saline lock: 20 gauge in right antecubital area, using aseptic technique. ld2 Blood collected. 13:57 CBC with Diff Sent. ld2 13:57 CMP Sent. ld2 13:57 Lipase Sent. ld2 15:26 CT Abd/Pelvis - IV Contrast Only In Process Unspecified. EDAL 17:11 Aj Bliss is Hospitalizing Provider. [facility] 18:07 Provided Education on: admission. 4 18:07 No provider procedures requiring assistance completed. Patient admitted, IV remains in cp4 place. Administered Medications: 14:03 Drug: NS 0.9% IV 1000 ml IV at 1 bolus Per protocol; 1000 mL bolus Route: IV; Rate: 1 ld2 bolus; Infused Over: 1 hrs; Site: right forearm; Delivery: Primary tubing; 18:09 Follow up: Response: No adverse reaction; IV Status: Completed infusion cp4 14:03 Drug: Ondansetron IVP 4 mg IVP once; over 2 minutes Route: IVP; Infused Over: 2 mins; ld2 Site: right forearm; 16:12 Follow up: Response: No adverse reaction cp4 14:15 Not Given (Hemodynamic Parameters; Pt's HR is 40. Denies need for further pain meds at ld2 this time.): fentanyl (pf)50 mcg IVP once 15:47 Drug: fentaNYL (PF) IVP 50 mcg IVP once Route: IVP; Site: right antecubital; cp4 16:12 Follow up: Response: No adverse reaction; Pain is decreased cp4 16:11 Drug: Piperacillin-Tazobactam IVPB 3.375 grams IVPB once over 60 mins; (mix in NS 100 cp4 mL) Route: IVPB; Infused Over: 60 mins; Site: right antecubital; 17:15 Follow up: Response: No adverse reaction; IV Status: Completed infusion cp4 17:03 Drug: Promethazine IVP 12.5 mg IVP once Route: IVP; Site: right antecubital; cp4 18:08 Follow up: Response: No adverse reaction cp4 17:03 Drug: morphine IVP or IV 2 mg IVP once over 4 mins Route: IVP; Infused Over: 4 mins; cp4 Site: right antecubital; 18:08 Follow up: Response: No adverse reaction cp4 Medication: 18:10 VIS not applicable for this client. cp4 Outcome: 17:12 Decision to Hospitalize by Provider. [facility] 18:07 Admitted to ICU accompanied by nurse, via stretcher, 4 18:07 Condition: stable 18:07 Instructed on the need for admit, Demonstrated understanding of instructions, follow-up care, 18:10 Patient left the ED. cp4 Signatures: Dispatcher [employer] Suze Chris, RN RN ph Conchita Carias, MILLER FIRST MILLER FIRST Nicole Rivera cp4 Mackenzie Madison, RN RN ld2 Corrections: (The following items were deleted from the chart) 18:00 16:30 BP 112 / 65; Pulse 45bpm; Resp 18bpm; Pulse Ox 95%; cp4 cp4
--- NOTE | 2024-01-09 17:38 | P.HP ---
Certification for Inpatient Patient admitted to: Inpatient With expected LOS: >2 Midnights Patient will require the following post-hospital care: None Practitioner: I am a practitioner with admitting privileges, knowledge of patient current condition, hospital course, and medical plan of care. Services: Services provided to patient in accordance with Admission requirements found in Title 42 Section 412.3 of the Code of Federal Regulations Patient History Date of Service: 01/09/24 Reason for admission: Acute abdomen History of Present Illness: Amy Gaming is a 73 year old female with Pmhx hypertension, hypothyroidism, breast cancer with mets to bones, kidneys, and liver who presents to the ED chief complaint of severe lower abdominal pain that began 3 days ago. Family reports her taking mag citrate 2 hours prior to arrival due to not having a bowel movement for 3 days. Upon arrival to the ED CT scan was performed revealing pneumoperitoneum. Dr. Winn consulted and decided on surgery immediately. On examination, Amy reports no relief to the severe lower abdominal pain, skin is hewitt in color, dry mucous membranes, expiratory wheezes to bilateral lung rosas. Family reports a recent bipolar hip surgery which required her to go to the inpatient rehab and then returned home where she was independent. Initial vitals BP 146 / 52; Pulse 42; Resp 24; Temp 97.1(TE); Pulse Ox 96% on R/A; Laboratory evaluation platelets 84, BUN/creatinine 95/1.26, GFR 45, serum glucose 207, lipase 324, ALT 166. CT abdomen pelvis reports "1. Pneumoperitoneum consistent with perforation of a hollow viscus. Though the source is not entirely certain, some gas is localized in the region of the proximal sigmoid which could be the source. 2. Widespread osseous metastatic disease . Reportedly, the patient has a history breast cancer. 3. Small solid-appearing right renal mass concerning for a renal cell carcinoma. Nonemergent urologic referral suggested." Amy will be admitted to hospitalist service for further treatment status post exploratory laparotomy. Allergies aspirin Allergy (Verified 01/09/24 18:35) unsure, just told to not take banana Allergy (Verified 01/09/24 18:35) Itching of throat melon Allergy (Verified 01/09/24 18:35) Itching of throat shellfish derived Allergy (Verified 01/09/24 18:35) Itching/Hives/Rash - Past Medical/Surgical History -: Hypertension -: Hypothyroidism -: Breast cancer with mets to kidney liver and bone -: Bipolar hip surgery - Family History Family History: Reviewed- Non-Contributory - Social History Smoking Status: Never smoker Alcohol use: No CD- Drugs: No Review of Systems Gastrointestinal: Nausea, Vomiting, Abdominal Pain, Constipation Physical Examination - Physical Exam General: Alert, Oriented x3, Mild distress, Other (hewitt skin color) HEENT: Atraumatic, Normocephalic Neck: Supple, 2+ carotid pulse no bruit Respiratory: Normal air movement, Expiratory wheezes Cardiovascular: Normal pulses, Regular rate/rhythm, Normal S1 S2 Capillary refill: <2 Seconds Gastrointestinal: Hypoactive, Rigidity, Distended, Tenderness Musculoskeletal: No swelling Neurological: Normal speech - Studies Laboratory Data (last 24 hrs) 01/09/24 01/09/24 14:20 14:20 WBC 7.80 Hgb 13.6 Hct 41.2 Plt Count 84 L Sodium 136 Potassium 4.9 BUN 95 H Creatinine 1.26 H Glucose 207 H Total Bilirubin 1.2 H AST 28 ALT 166 H Alkaline Phosphatase 93 Lipase 324 H Assessment and Plan - Plan Assessment and plan Acute abdomen s/s Pneumoperitoneum -CT abdomen pelvis reports "1. Pneumoperitoneum consistent with perforation of a hollow viscus. Though the source is not entirely certain, some gas is localized in the region of the proximal sigmoid which could be the source. 2. Widespread osseous metastatic disease . Reportedly, the patient has a history breast cancer. 3. Small solid-appearing right renal mass concerning for a renal cell carcinoma. Nonemergent urologic referral suggested." -Dr. Winn consulted, immediate surgery -Admit to ICU -Pain control -Gentle IV fluid -Zosyn -Protonix Thrombocytopenia -Platelets 84 -Was taking Lovenox at home status post bipolar hip Hyperglycemic -serum glucose 204 -monitor in AM labs History of breast cancer with metastasis to liver, kidneys, bones -Chemo medication will be provided by family in the morning History of hypertension History of hypothyroidism -Continue home medication when appropriate MOISE -BUN/creatinine 95/1.26, GFR 45 -IVF DVT PPx SCDs Full code LOS 3 days Discharge Plan: Home Plan to discharge in: 72 Hours - Advance Directives Does patient have a Living Will: No Does patient have a Durable POA for Healthcare: No
--- NOTE | 2024-01-09 18:26 | P.HP ---
Date of Service: 01/09/24 PC: This patient presented the emergency room with severe abdominal pain for diagnosis and treatment. HPC: This patient, who has metastatic breast carcinoma, has been having abdominal pain for about the last 4 to 5 days. Has not felt well. Pain is intensified today, and now she could hardly move. PSHx: Hysterectomy and oophorectomy, bilateral breast cancer surgery with reconstruction. Arthroplasty for her hip. Was scheduled for radiation therapy tomorrow or the next day due to back pain and metastatic disease PMHx: Hypertension, history of bradycardia, is supposed to be on blood pressure medication, but has been noncompliant for the last 2 years. Takes Lovenox Social Hx: No known allergies Sys R: No cough, wheeze, shortness of breath. Has been having a lot of pain in her hip, for which she recently had an arthroplasty O/E: Awake alert very uncomfortable at the moment HEENT: Not jaundiced Chest: Chest movement equal bilaterally Abd: Tenderness with guarding and rebound all over the abdomen Foster: Intact Data: CT scan demonstrates free air seen on the CT scan, consistent with perforated viscus Impression: Perforated bowel. Acute abdomen. Plan: I will take this lady to the operating room for exploratory laparotomy and repair of perforated viscus. The risks of this procedure have been discussed wi th the patient and her family. She has numerous medical issues however due to the severity of her clinical status at the moment, I feel she needs to go to the operating room. The high risk of this procedure has been explained both to the patient and her daughter. They understand and want to proceed.
[2024-01-09] MEDS ORDERED: SODIUM CHLORIDE 0.9% 10ML INJ IV PRN (18:28)
[2024-01-09 18:37] LABS: Blood Morphology Comment NOT SEEN (NOT SEEN); Platelet Estimate DECR; White Blood Cell Scan OK (OK)
[2024-01-09] MEDS: SUCCINYLCHOLINE 20 MG/ML (10 ML) IV ONE (18:38)
[2024-01-09] MEDS ORDERED: ROCURONIUM 50 MG/5 ML VIAL IV ONE (18:41)
[2024-01-09] MEDS ORDERED: propofoL 200 MG/20 ML VIAL IV ONE (18:41)
[2024-01-09] MEDS: Ringers Lactate 1,000 ML IV ONE ×2 (18:50→21:27)
[2024-01-09] MEDS ORDERED: dexAMETHasone 4 MG/ML VIAL ONE (19:59)
[2024-01-09] MEDS: INSULIN REGULAR (HUMAN) 100 UNIT/ML SQ SCH (21:00)
--- NOTE | 2024-01-09 21:04 | P.OP ---
Preoperative diagnosis: Perforated viscus Postoperative diagnosis: Perforated gastric ulcer Primary procedure: Exploratory laparotomy Secondary procedure: Ted patch perforated gastric ulcer Other procedure(s): Lysis of adhesions Anesthesia: General Estimated blood loss: Less than 20 cc Specimen: None was sent Operative Technique: The patient brought the operating room and placed supine on the table. After the induction of adequate general endotracheal anesthesia, a Lambert catheter was placed. The abdomen was then prepped with a Betadine solution, and she was draped in the usual aseptic manner. Attention was turned towards the abdomen. A incision was made in the supraumbilical area. This is brought down through the skin and subcutaneous tissue. The fascia was opened in the midline. Our incision was now extended both superiorly and inferiorly to allow us asked to do the peritoneal cavity. On entering the peritoneal cavity, we did have a small gush of air. There was less fluid than I expected to see. I hand out of the pelvis just reviewed a small amount. There were some adhesions of the omentum to the anterior abdominal wall. Attention was turned towards the upper abdomen. We could see that there was greenish-black fluid coming from just underneath the liver. Gentle traction on the stomach allowed us to expose the gastroduode nal junction. In this area we found a ulceration that was actively leaking. The area was irrigated with a copious amount of a saline solution until the effluent was clear. Attention was turned count now turned towards the perforation. After mobilizing a piece of omentum that would easily extend up and cover over this area, for 2-0 silk sutures were placed. The mesh was laid down and the omentum was tied over this hole to effectively complete a Ted patch. The tip of the omentum was also tacked superiorly with a chromic suture. At this point the abdomen was irrigated with a copious amount of a saline solution. The nasogastric tube was checked for positioning. The rest of the abdomen was now run from the ligament of Treitz down to the pelvis. Marked amount of adhesions to the posterior portion of the bladder which were freed up. The rest of the bowel was essentially loose apart from some mild tacks attachments to the previous hysterectomy the patient has had in the past. Ot herwise no other gross pathology was noted, but she is so full of stool it is difficult to specifically tell. However we could establish that there was continuity of the bowel from the stomach down to the rectum. No other holes or perforations were noted. At this point the abdomen was once again irrigated with a copious amount of a saline solution. A Iron-Morales drain was placed up in Morison's pouch and along the right Colic gutter. It was brought out through a right-sided separate stab wound incision. The midline incision was now closed with a running suture of 2 oh looped nylon. The subcutaneous tissue was irrigated with a saline solution and loosely approximated with jones. At the end of the procedure anesthesia kindly placed a right IJ line for us so the patient has IV access during the postoperative period and any medication she may require due to her bradycardia can easily be given. Estimated blood loss was approximately 20 cc. 1 GERALDO drain was placed. She was stable was sent to the recovery room. Complications: None Drain(s): GERALDO drain Transferred to: Recovery Room
--- NOTE | 2024-01-09 21:59 | RAD REPORT ---
EXAM DESCRIPTION: RAD - Abdomen 1 View (KUB) - 01/09/2024 9:50 pm CLINICAL HISTORY: Placement of NGT and CENTRAL LINE COMPARISON: No comparisons FINDINGS: Nonobstructive bowel gas pattern. No acute osseous abnormality. NG tube overlies the stomach in satisfactory position.No abnormal calcifications. Right IJ approach central line with tip overlying the expected location of the right innominate vein/ proximal SVC. No pneumothorax. Likely basilar atelectasis. Surgical drains in the right upper quadrant. IMPRESSION: 1. NG tube tip in the stomach in satisfactory position. 2. Right IJ approach central line overlying the distal right innominate vein/proximal SVC. No pneumot horax.
[2024-01-09 23:22] VITALS: BMI 31.0
[2024-01-09] MEDS ORDERED: PANTOPRAZOLE 40 MG INJ ONE (23:24)
[2024-01-09] MEDS: PANTOPRAZOLE 40 MG INJ IVP SCH (23:39)
[2024-01-09] MEDS: NA CHLORIDE 0.9% 1,000 ML IV SCH (23:39)
[2024-01-10] MEDS: PIPER TAZO 3.375 GM in NA CHLORIDE 0.9% 100 ML IV SCH (01:05)
[2024-01-10 05:05] LABS: Absolute Lymphocytes (CBC) 0.2 K/uL (0.7-4.9); Absolute Monocytes 0.1 K/uL (0.1-1.3); Absolute Neutrophil 4.9 K/uL (1.8-8.0); Basophils % 0.1 % (0-1.3); Hematocrit 35.3 % (36.0-45.0); Hemoglobin 11.6 g/dL (12.0-15.0); Lymphocytes % 3.2 % (15.3-44.8); MCH 30.8 pg (27.0-35.0); MCV 93.2 fL (80-100); MPV 9.8 fL (7.6-11.3); Monocytes % 1.9 % (3.3-12.3); Platelets 53 thou/uL (152-406); RBC Red Blood Cell Count 3.79 M/uL (3.86-4.86)
[2024-01-10 05:06] LABS: Neutrophils % 94.8 % (41.7-73.7)
[2024-01-10 05:18] LABS: Albumin 2.2 g/dL (3.4-5.0); Albumin/Globulin Ratio 0.9 (1.1-1.8); Bilirubin Total 1.2 mg/dL (0.2-1.0); Globulin 2.5 g/dL (2.3-3.5); Magnesium 4.2 mg/dL (1.6-2.4); Phosphorus 3.9 mg/dL (2.5-4.9); Protein, Total 4.7 g/dL (6.4-8.2)
[2024-01-10] MEDS ORDERED: D50W 25 GM/50 ML SYRINGE IV PRN (07:10)
[2024-01-10] MEDS ORDERED: GLUCAGON 1 MG/VIAL IM PRN (07:10)
[2024-01-10] MEDS ORDERED: D10W 125 ML IV PRN (07:15)
[2024-01-10] MEDS ORDERED: PIPERACIL/TAZO 3.375 GM VIAL IV ONE (07:55)
[2024-01-10] MEDS ORDERED: NA CHLORIDE 0.9% 100 ML ONE (07:55)
[2024-01-10] MEDS ORDERED: NA CHLORIDE 0.9% 1,000 ML ONE (07:55)
[2024-01-10] MEDS ORDERED: PANTOPRAZOLE 40 MG INJ ONE (07:55)
[2024-01-10] MEDS: INSULIN REGULAR (HUMAN) 100 UNIT/ML SQ SCH (12:00)
[2024-01-10] MEDS ORDERED: MORPHINE 4 MG/ML SYR ONE (12:19)
[2024-01-10] MEDS: MORPHINE 4 MG/ML SYR IV PRN (12:28)
[2024-01-10] MEDS ORDERED: ONDANSETRON 4 MG/2 ML VIAL ONE (12:32)
[2024-01-10] MEDS: ONDANSETRON 4 MG/2 ML VIAL IV PRN (12:35)
--- NOTE | 2024-01-10 13:37 | P.PN ---
Date of Service: 01/10/24 Subjective Feeling better this morning Reports pain is much better She has been chronically bradycardic ROS 10 point ROS as noted above, otherwise negative Physical Exam General: Awake, alert, Oriented x3,comfortable HEENT: Atraumatic, Normocephalic Neck: Supple, 2+ carotid pulse no bruit Respiratory: symmetrical chest wall movement, nonlabored breathing, on room air Cardiovascular: Normal pulses, Regular rhythm, bradycardic, Normal S1 S2 Capillary refill: <2 Seconds Gastrointestinal: Hypoactive, Tenderness, GERALDO drain Musculoskeletal: No swelling Neurological: Normal speech Vitals Reviewed Problem list Acute abdomen 2/2 Pneumoperitoneum Gastroduodenal junction ulcer Thrombocytopenia Hyperglycemic History of breast cancer with metastasis to liver, kidneys, bones History of hypertension History of hypothyroidism MOISE Assessment and Plan Acute abdomen 2/2 Pneumoperitoneum Gastroduodenal junction ulcer Left shift -CT abdomen pelvis reports "1. Pneumoperitoneum consistent with perforation of a hollow viscus. Though the source is not entirely certain, some gas is localized in the region of the proximal sigmoid which could be the source. 2. Widespread osseous metastatic disease . Reportedly, the patient has a history breast cancer. 3. Small solid-appearing right renal mass concerning for a renal cell carcinoma. Nonemergent urologic referral suggested." -Dr. Winn consulted, immediate surgery -Lipase 324, neutrophils 94.8 -Admit to ICU -Pain control -Gentle IV fluid -Zosyn -Protonix Thrombocytopenia -Platelets 53 -Was taking Lovenox at home status post bipolar hip -SCD Hyperglycemic -serum glucose 171 -Accu-Chek with sliding scale insulin -monitor in AM labs -A1C pending History of breast cancer with metastasis to liver, kidneys, bones -Chemo medication will be provided by family in the morning History of hypertension History of hypothyroidism -Continue home medication when appropriate MOISE -BUN/creatinine 73/1.10, GFR 53- improved -IVF DVT PPx SCDs Full code LOS 3 days <Maris Mckoy - Last Filed: 01/10/24 16:54> Patient seen and examined. Plan of care discussed with Ms. Mckoy Gastric perforation History of breast cancer with distant metastasis. Plan: IV Protonix Empiric IV Zosyn Start PPN General surgery Dr. Winn is following <swapnil miller - Last Filed: 01/10/24 20:14>
--- NOTE | 2024-01-10 18:53 | P.PN ---
Date of Service: 01/10/24 S: Patient feels 100% better today she states. Still having some abdominal discomfort, but nothing like it was yesterday. O: Awake alert vital signs are stable, adequate urine output. Incisions are clean. Labs and vital signs are stable. A: Surgically stable status post exploratory laparotomy and Ted patch for perforated gastric ulcer. P: Continue current therapy, if still stable tomorrow, may be transferred to the floor.
[2024-01-11 05:32] LABS: Hematocrit 28.3 % (36.0-45.0); Hemoglobin 9.1 g/dL (12.0-15.0); MCH 30.3 pg (27.0-35.0); MCV 94.4 fL (80-100); MPV 9.1 fL (7.6-11.3); Platelets 41 thou/uL (152-406); RBC Red Blood Cell Count 2.99 M/uL (3.86-4.86); Red Cell Distribution Width 16.5 % (12.1-15.2)
[2024-01-11 05:55] LABS: Albumin 1.8 g/dL (3.4-5.0); Albumin/Globulin Ratio 0.7 (1.1-1.8); Anion Gap 6.4 mEq/L (5.0-15.0); Globulin 2.6 g/dL (2.3-3.5); Magnesium 3.6 mg/dL (1.6-2.4); Phosphorus 2.4 mg/dL (2.5-4.9); Potassium 4.4 mEq/L (3.5-5.1); Protein, Total 4.4 g/dL (6.4-8.2)
[2024-01-11] MEDS: AMINO ACIDS 4.25 %/DEXTROSE 5% 2,000 ML IV SCH (08:19)
[2024-01-11] MEDS ORDERED: AA 4.25 %/D5W/ELECTROLYTES 2,000 ML, Lipids 20% 250 ML with MULTIVITAMINS INJ 10 ML IV SCH (09:00)
--- NOTE | 2024-01-11 11:40 | P.PN ---
Date of Service: 01/11/24 Subjective Abdominal pain improving Denies flatus or BM yet ROS 10 point ROS as noted above, otherwise negative Physical Exam General: Awake, alert, Oriented x3,comfortable HEENT: Atraumatic, Normocephalic Neck: Supple, 2+ carotid pulse no bruit Respiratory: symmetrical chest wall movement, nonlabored breathing, on room air Cardiovascular: Normal pulses, Regular rhythm, bradycardic, Normal S1 S2 Capillary refill: <2 Seconds Gastrointestinal: Hypoactive, minimal tenderness, GERALDO drain in place, abd binder in place Musculoskeletal: No swelling Neurological: Normal speech Vitals Reviewed Problem list Perforated gastric ulcer S/P repair with Ted patch 01/08 Gastroduodenal ulceration Thrombocytopenia History of breast cancer with metastasis to liver, kidneys, bones History of hypertension History of hypothyroidism MOISE Assessment and Plan Perforated gastric ulcer S/P repair with Ted patch 01/08 Gastroduodenal ulceration Had surgery with Ted patch repair 01/08 N.p.o., NGT still in place Initiated nutrition with PPN 01/[address] in [address] Likely downgrade to floor today Continue PPI Continue empiric Zosyn Thrombocytopenia Platelets trending down Hold Lovenox, continue with SCDs Patient recently on outpatient Lovenox after hip surgery as well as oral chemotherapy which may be contributing Monitor platelet count daily History of breast cancer with metastasis to liver, kidneys, bones Hold oral chemotherapy History of hypertension History of hypothyroidism Continue medications when tolerating p.o./cleared by surgery MOISE Improved, continue gentle IVF DVT PPx SCDs Full code LOS 3 days <Alfonso Higuera - Last Filed: 01/11/24 11:43> Patient seen and examined on rounds this morning with RETAIL SHIFT MANAGER Davida. I performed a substantial part of the MDM during this patient's care today as noted above in the plan of care. I agree with plan of care as noted above with the following additions / corrections: Improving no new/worsening symptoms plt downtrending - started low to begin with suspect secondary to bone marrow suppression from acute illness and chemo hold lovenox, monitor for signs of bleeding hold PO chemo in immediate post-op period <Juan Olmedo - Last Filed: 01/11/24 19:49>
--- NOTE | 2024-01-11 17:15 | P.PN ---
Date of Service: 01/11/24 S: Patient feels well, getting more comfortable. Asking better NG tube. No rumblings yet, no gas per rectum. O: Minimal out through the nasogastric tube. Vital signs remained stable. A: Surgically stable P: Anticipate removing nasogastric tube tomorrow. Will give full liquids tonight however despite NG tube. Patient may require rehab to get back to independent living. Will have her discussed with social sciences professor.
[2024-01-12 05:34] LABS: Hematocrit 25.9 % (36.0-45.0); Hemoglobin 8.7 g/dL (12.0-15.0); MCH 31.1 pg (27.0-35.0); MCHC 33.7 g/dL (32.0-36.0); MCV 92.4 fL (80-100); MPV 8.2 fL (7.6-11.3); Platelets 37 thou/uL (152-406); RBC Red Blood Cell Count 2.81 M/uL (3.86-4.86); Red Cell Distribution Width 16.1 % (12.1-15.2)
[2024-01-12 05:50] LABS: Albumin 1.8 g/dL (3.4-5.0); Albumin/Globulin Ratio 0.6 (1.1-1.8); Anion Gap 6.7 mEq/L (5.0-15.0); Bilirubin Total 0.9 mg/dL (0.2-1.0); Globulin 2.8 g/dL (2.3-3.5); Potassium 3.7 mEq/L (3.5-5.1); Prealbumin 13.7 mg/dL (20-40); Protein, Total 4.6 g/dL (6.4-8.2)
[2024-01-12 06:01] LABS: Phosphorus 1.1 mg/dL (2.5-4.9)
[2024-01-12] MEDS: POTASSIUM PHOS IN 0.9 % NACL 15 MMOL/250 ML BAG IV ONE (06:30)
--- NOTE | 2024-01-12 15:52 | P.PN ---
Date of Service: 01/12/24 S: Patient feels a whole lot better today, no specific complaints. O: Minimal through the nasogastric tube. Dressing taken down, surgical incision is clean. Minimal out through the GERALDO drain. A: Surgically stable status post exploratory laparotomy with Ted patch for perforated gastric ulcer. P: I will DC the NG tube. Started on some clear liquids. Anticipate removal of GERALDO drain in the a.m.
[2024-01-12] MEDS: MINERAL OIL 30 ML UCUP PO ONE (16:10)
[2024-01-12] MEDS: MINERAL OIL 30 ML UCUP FT ONE (16:13)
--- NOTE | 2024-01-12 16:27 | P.PN ---
Date of Service: 01/12/24 Subjective Abdominal pain improving Denies flatus or BM yet no acute events overnight working with PT ROS 10 point ROS as noted above, otherwise negative Physical Exam General: Awake, alert, Oriented x3,comfortable HEENT: Atraumatic, Normocephalic Neck: Supple, 2+ carotid pulse no bruit Respiratory: symmetrical chest wall movement, nonlabored breathing, on room air Cardiovascular: Normal pulses, Regular rhythm, bradycardic, Normal S1 S2 Capillary refill: <2 Seconds Gastrointestinal: Hypoactive, minimal tenderness, GERALDO drain in place, abd binder in place Musculoskeletal: No swelling Neurological: Normal speech Vitals Reviewed Problem list Perforated gastric ulcer S/P repair with Ted patch 01/08 Gastroduodenal ulceration Thrombocytopenia Sinus bradycardia History of breast cancer with metastasis to liver, kidneys, bones History of hypertension History of hypothyroidism MOISE Assessment and Plan Perforated gastric ulcer S/P repair with Ted patch 01/08 Gastroduodenal ulceration Had surgery with Ted patch repair 01/[address], plan for DC today and starting clear liquids per general surgeon Initiated nutrition with PPN 01/[address]-possible discontinuation of GERALDO drain tomorrow Continue PPI Continue empiric Zosyn Thrombocytopenia Platelets trending down Hold Lovenox, continue with SCDs Patient recently on outpatient Lovenox after hip surgery as well as oral caryn motherapy which may be contributing Monitor platelet count daily Sinus bradycardia Reports her heart rate is been low since initiating 3 new blood pressure medications a few weeks ago EKG shows sinus bradycardia Asymptomatic currently Heart rate persistently in the high 30s to low 40s-will consult cardiology History of breast cancer with metastasis to liver, kidneys, bones Hold oral chemotherapy History of hypertension History of hypothyroidism Continue medications when tolerating p.o./cleared by surgery MOISE Improved, continue gentle IVF DVT PPx SCDs Full code LOS 3 days <Alfonso Higuera - Last Filed: 01/12/24 16:25> Patient seen and examined on rounds this morning with DIE STAMPING PRESS OPERATOR Davida. I performed a substantial part of the MDM during this patient's care today as noted above in the plan of care. I agree with plan of care as noted above with the following additions / corrections: improving, no new/worsening symptoms tolerated ice chips/sips bradycardia - cardio consulted plts remain low, no bleeding noted NGT to be removed per surgery today GERALDO drain remains overall improving <Juan Olmedo - Last Filed: 01/12/24 21:07>
[2024-01-12] MEDS ORDERED: AA 4.25 %/D5W/ELECTROLYTES 2,000 ML, Lipids 20% 250 ML with MULTIVITAMINS INJ 10 ML IV SCH (17:00)
[2024-01-12] MEDS: AMINO ACIDS 4.25 %/DEXTROSE 5% 2,000 ML, Lipids 20% 250 ML with MULTIVITAMINS INJ 10 ML IV SCH (19:21)
[2024-01-13 05:23] LABS: Hematocrit 24.8 % (36.0-45.0); Hemoglobin 8.5 g/dL (12.0-15.0); MCH 31.1 pg (27.0-35.0); MCHC 34.1 g/dL (32.0-36.0); MCV 91.1 fL (80-100); MPV 8.3 fL (7.6-11.3); Platelets 36 thou/uL (152-406); RBC Red Blood Cell Count 2.72 M/uL (3.86-4.86); Red Cell Distribution Width 15.8 % (12.1-15.2)
[2024-01-13 05:34] LABS: Albumin 1.7 g/dL (3.4-5.0); Albumin/Globulin Ratio 0.6 (1.1-1.8); Anion Gap 7.4 mEq/L (5.0-15.0); Bilirubin Total 0.9 mg/dL (0.2-1.0); Globulin 2.7 g/dL (2.3-3.5); Magnesium 2.3 mg/dL (1.6-2.4); Potassium 3.4 mEq/L (3.5-5.1); Protein, Total 4.4 g/dL (6.4-8.2)
[2024-01-13 05:35] LABS: Phosphorus 1.1 mg/dL (2.5-4.9)
[2024-01-13] MEDS ORDERED: AA 4.25 %/D5W/ELECTROLYTES 2,000 ML IV SCH (09:00)
[2024-01-13] MEDS: POTASS/SODIUM PHOSPHATE 1 PKT POWD.PACK PO SCH (10:53)
[2024-01-13] MEDS: POTASSIUM 25 MEQ EFFERV TAB PO ONE (10:53)
--- NOTE | 2024-01-13 14:19 | P.PN ---
Date of Service: 01/13/24 Subjective NGT removed Tolerating clears Denies abd pain no acute events overnight ROS 10 point ROS as noted above, otherwise negative Physical Exam General: Awake, alert, Oriented x3,comfortable HEENT: Atraumatic, Normocephalic Neck: Supple, 2+ carotid pulse no bruit Respiratory: symmetrical chest wall movement, nonlabored breathing, on room air Cardiovascular: Normal pulses, Regular rhythm, bradycardic, Normal S1 S2 Capillary refill: <2 Seconds Gastrointestinal: Hypoactive, minimal tenderness, GERALDO drain in place, abd binder in place Musculoskeletal: No swelling Neurological: Normal speech Vitals Reviewed Problem list Perforated gastric ulcer S/P repair with Ted patch 01/08 Gastroduodenal ulceration Thrombocytopenia Sinus bradycardia History of breast cancer with metastasis to liver, kidneys, bones History of hypertension History of hypothyroidism MOISE Assessment and Plan Perforated gastric ulcer S/P repair with Ted patch 01/08 Gastroduodenal ulceration Had surgery with Ted patch repair 01/08 NGT DC'd 01/11 Initiated nutrition with PPN 01/[address]-possible discontinuation of GERALDO drain later today Continue PPI Continue empiric Zosyn Still no flatus or BM given mineral oil PO by general surgery Thrombocytopenia Platelets trending down but slowing Hold Lovenox, continue with SCDs Patient recently on outpatient Lovenox after hip surgery as well as oral chemotherapy which may be contributing Monitor platelet count daily Sinus bradycardia Reports her heart rate is been low since initiating 3 new blood pressure medications a few weeks ago EKG shows sinus bradycardia Asymptomatic currently Heart rate persistently in the high 30s to low 40s-will consult cardiology History of breast cancer with metastasis to liver, kidneys, bones Hold oral chemotherapy History of hypertension History of hypothyroidism Continue medications when tolerating p.o./cleared by surgery MOISE Improved, continue gentle IVF DVT PPx SCDs Full code LOS 2-3 days
--- NOTE | 2024-01-13 15:17 | P.PN ---
Date of Service: 01/13/24 S: Patient has no specific complaints today, feels a whole lot better than when she was admitted. Glad that the tube is out of her nares. O: Abdomen is soft, wounds are clean, still has some drainage in the GERALDO drain. A: Surgically stable P: GERALDO drain can be removed tomorrow. Advance diet as tolerated. She is going to be going to rehab apparently for recuperation. She can follow-up with me in my office next Wednesday or . If she is still inpatient please consult me and I will see her in the hospital for possible staple removal.
--- NOTE | 2024-01-13 16:24 | P.CNS ---
Date of Consult: 01/13/24 Chief Complaint: Bradycardia History of Present Illness: Patient with PMH og hypertension, presented with perfoerated gastric ulcer s/p surgery, cardiology was consulted for bradycardia, patient denies having any history of bradycardia, no dizzy spells, no syncope, no chest pain, no SOB, no history of CAD. Allergies aspirin Allergy (Verified 01/09/24 18:35) unsure, just told to not take banana Allergy (Verified 01/09/24 18:35) Itching of throat melon Allergy (Verified 01/09/24 18:35) Itching of throat shellfish derived Allergy (Verified 01/09/24 18:35) Itching/Hives/Rash Home Medications: Amlodipine [Norvasc] 10 mg PO BEDTIME 01/09/24 Carvedilol [Coreg] 6.25 mg PO BIDWM 01/09/24 Enoxaparin Sodium [Lovenox 30 MG INJ] 30 mg SQ BID 01/09/24 Letrozole [Femara] 2.5 mg PO DAILY 01/09/24 Losartan Potassium [Cozaar] 50 mg PO BID 01/09/24 dexAMETHasone [Dexamethasone] 6 mg PO TID 01/09/24 hydroCHLOROthiazide [Hydrochlorothiazide*] 12.5 mg PO DAILY 01/09/24 - Past Medical/Surgical History Diabetic: No -: HTN -: Hypothyroid -: Breast cancer with mets to kidney liver and bone -: R Bipolar hip -: Breast CA with mets to bone, kidney, liver -: Bilateral breast lumpectomy -: Hyst - Family History Father Medical History: Heart disease Mother Notes: on HD Sister Notes: Cirrhosis - Social History Alcohol use: No CD- Drugs: No Caffeine use: No Place of Residence: Home Review of Systems 10-point ROS is otherwise unremarkable Physical Examination Temp Pulse Resp BP Pulse Ox 97.0 F 51 16 133/60 96 01/13/24 12:00 01/13/24 12:00 01/13/24 12:00 01/13/24 12:00 01/13/24 12:00 General: Alert, Oriented x3 HEENT: Atraumatic Neck: Supple Respiratory: Clear to auscultation bilaterally Cardiovascular: No edema, Normal S1 S2 Gastrointestinal: Normal bowel sounds - Problems (1) Bradycardia Current Visit: Yes Status: Acute Plan: Patient Telemtery was reviewed and it is all sinus bradycardia with no signs of advanced heart block. Continue to monitor on tele avoid AV marco antonio blocking agents. Get Echo (2) HTN (hypertension) Current Visit: Yes Status: Acute Plan: Continue Norvasc and losartan.
--- NOTE | 2024-01-13 17:02 | EKG ---
Test Date: 2024-01-09 Test Time: 15:48:31 [place]: ARLET MEASUREMENT RESULTS: Intervals: Rate: 37 VA: 144 QRSD: 94 QT: 510 QTc: 400 [place]: P: 55 VA: 144 QRS: -31 T: 61 INTERPRETIVE STATEMENTS: Marked sinus bradycardia Left axis deviation Left ventricular hypertrophy with repolarization abnormality Abnormal ECG Compared to ECG 12/13/2023 12:41:02 Left-axis deviation now present Left ventricular hypertrophy now present Early repolarization now present Sinus rhythm no longer present Sinus arrhythmia no longer present ST (T wave) deviation no longer present Electronically Signed On 01-13-24 16:47:15 CDT by Yoan Andrews
[2024-01-13] MEDS: AMINO ACIDS 4.25 %/DEXTROSE 5% 2,000 ML IV SCH (17:52)
[2024-01-14 04:46] LABS: Hematocrit 24.4 % (36.0-45.0); Hemoglobin 8.2 g/dL (12.0-15.0); MCH 30.3 pg (27.0-35.0); MCHC 33.7 g/dL (32.0-36.0); MCV 90.1 fL (80-100); MPV 8.2 fL (7.6-11.3); Platelets 32 thou/uL (152-406); RBC Red Blood Cell Count 2.71 M/uL (3.86-4.86); Red Cell Distribution Width 15.9 % (12.1-15.2)
[2024-01-14 05:05] LABS: Albumin 1.7 g/dL (3.4-5.0); Albumin/Globulin Ratio 0.6 (1.1-1.8); Anion Gap 7.8 mEq/L (5.0-15.0); Globulin 2.7 g/dL (2.3-3.5); Magnesium 1.9 mg/dL (1.6-2.4); Potassium 3.8 mEq/L (3.5-5.1); Protein, Total 4.4 g/dL (6.4-8.2)
[2024-01-14 05:32] LABS: Phosphorus 1.1 mg/dL (2.5-4.9)
[2024-01-14] MEDS: POTASSIUM 25 MEQ EFFERV TAB PO ONE (09:10)
[2024-01-14] MEDS: POTASS/SODIUM PHOSPHATE 1 PKT POWD.PACK PO SCH (09:10)
--- NOTE | 2024-01-14 14:03 | ECHO ---
HEIGHT: 5 ft 3 in WEIGHT: 175 lb 4.8 oz DATE OF STUDY: 01/14/[address]: Juan Olmedo MD 2-DIMENSIONAL: YES M.MODE: YES DOPPLER: YES COLOR FLOW: YES TDS: PORTABLE: DEFINITY: BUBBLE STUDY: DIAGNOSIS: BRADYCARDIA CARDIAC HISTORY: CATHERIZATION: SURGERY: PROSTHETIC VALVE: PACEMAKER: MEASUREMENTS (cm) DIASTOLIC (NORMALS) SYSTOLIC (NORMALS) IVSd 1.0 (0.6-1.2) LA Diam 3.5 (1.9-4.0) LVEF 77% LVIDd 4.3 (3.5-5.7) LVIDs 2.3 (2.0-3.5) %FS 46% LVPWd 1.1 (0.6-1.2) Ao Diam 2.7 (2.0-3.7) 2 DIMENSIONAL ASSESSMENT: RIGHT ATRIUM: NORMAL LEFT ATRIUM: NORMAL RIGHT VENTRICLE: NORMAL LEFT VENTRICLE: NORMAL TRICUSPID VALVE: TRACE TRICUSPID REGURGITATION MITRAL VALVE: TRACE MITRAL REGURGITATION PULMONIC VALVE: NORMAL AORTIC VALVE: NORMAL PERICARDIAL EFFUSION: NONE AORTIC ROOT: NORMAL LEFT VENTRICULAR WALL MOTION: NORMAL DOPPLER/COLOR FLOW: NORMAL COMMENTS: 1. NORMAL LEFT VENTRICULAR SYSTOLIC FUNCTION, EJECTION FRACTION 55-60%, NORMAL WALL MOTION TECHNOLOGIST: MIRIAM GRANDE
--- NOTE | 2024-01-15 00:51 | P.PN ---
Date of Service: 01/14/24 Subjective: In no apparent distress. GERALDO drain removed today (01/13) No new/worsening complaints at this time. Plan of care discussed with patient and daughter at bedside. ROS 10 point ROS as noted above, otherwise negative Physical Exam General: Awake, alert, Oriented x3. in no apparent distress. HEENT: Atraumatic, Normocephalic. neck supple Respiratory: unlabored respirations on room air. Cardiovascular: Normal pulses, Regular rhythm, bradycardic. No edema. Gastrointestinal: Hypoactive, minimal tenderness. GERALDO drain noted with minimal serosanguinous output. Musculoskeletal: No swelling Neurological: Normal speech Vitals Reviewed labs reviewed Assessment and Plan Problem List Perforated gastric ulcer S/P repair with Ted patch 01/08 Gastroduodenal ulceration Thrombocytopenia Sinus bradycardia History of hypertension History of hypothyroidism History of breast cancer with metastasis to liver, kidneys, bones Perforated gastric ulcer S/P repair with Ted patch 01/08 Gastroduodenal ulceration - Had surgery with Ted patch repair 01/08 - NGT Discontinued 01/11 - Initiated nutrition with PPN 01/10. Discontinued 01/13 - GERALDO drain discontinued 01/13 Continue PPI Continue empiric Zosyn - no BM. + passing flatus. Thrombocytopenia Platelets trending down but slowing Hold Lovenox, continue with SCDs Patient recently on outpatient Lovenox after hip surgery as well as oral chemotherapy which may be contributing Monitor platelet count daily Sinus bradycardia Reports her heart rate has been low since initiating 3 new blood pressure medications a few weeks ago EKG shows sinus bradycardia Asymptomatic currently. Heart rate persistently in the high 30s to low 40s - cardiology consulted; avoid AV marco antonio blocking agents; continue norvasc and losartan. - echo 01/13: normal LV systolic function, EF 55-60%; normal wall motion. History of breast cancer with metastasis to liver, kidneys, bones - Hold oral chemotherapy History of hypertension History of hypothyroidism Continue medications when tolerating p.o./cleared by surgery MOISE Improved, continue gentle IVF DVT PPx SCDs Full code Dispo: inpatient rehab
[2024-01-15] MEDS: IPRATROPIUM BROM 0.5MG/2.5ML NEB PRN (01:45)
[2024-01-15] MEDS: ALBUTEROL 2.5 MG/3 ML NEB SOL NEB PRN (01:45)
[2024-01-15 05:56] LABS: Anion Gap 6.8 mEq/L (5.0-15.0); Magnesium 1.8 mg/dL (1.6-2.4); Phosphorus 1.7 mg/dL (2.5-4.9); Potassium 3.8 mEq/L (3.5-5.1)
[2024-01-15 09:36] VITALS: O2SAT 97
[2024-01-15] MEDS: POTASS/SODIUM PHOSPHATE 1 PKT POWD.PACK PO SCH (10:32)
[2024-01-15] MEDS: MAGNESIUM SULFATE 1 gm IVPB 1 GM/100 ML BAG IV ONE (10:33)
[2024-01-15] MEDS: POTASSIUM CL SA 10 MEQ TAB PO ONE (10:33)
--- NOTE | 2024-01-15 18:57 | P.PN ---
Date of Service: 01/15/24 Subjective: In no apparent distress. No new/worsening complaints at this time. Tolerating diet. Physical Exam General: Awake, alert, Oriented x3. in no apparent distress. HEENT: Atraumatic, Normocephalic. neck supple. Respiratory: unlabored respirations on room air. Cardiovascular: Normal pulses. Regular rhythm. No edema. Gastrointestinal: Normoactive. Mild tenderness on palpation. Musculoskeletal/Skin: right hip/thigh surgical incision site. Abdominal incision site with staple intact. No rashes. Neurological: Normal speech Vitals Reviewed Assessment and Plan Problem List Perforated gastric ulcer S/P repair with Ted patch 01/08 Gastroduodenal ulceration Thrombocytopenia Sinus bradycardia History of hypertension History of hypothyroidism History of breast cancer with metastasis to liver, kidneys, bones Perforated gastric ulcer S/P repair with Ted patch 01/08 Gastroduodenal ulceration - Had surgery with Ted patch repair 01/08 - NGT Discontinued 01/11 - Initiated nutrition with PPN 01/10; Discontinued 01/13 - GERALDO drain discontinued 01/13 Continue PPI Continue zosyn - BM reported 01/14. Thrombocytopenia Platelets trending down Hold Lovenox, continue with SCDs Patient recently on outpatient Lovenox after hip surgery as well as oral chemotherapy which may be contributing Monitor platelet count daily Sinus bradycardia Reports her heart rate has been low since initiating 3 new blood pressure medications a few weeks ago EKG shows sinus bradycardia Asymptomatic currently. Heart rate in the high 40s to low 50s - cardiology consulted; avoid AV marco antonio blocking agents; continue norvasc and losartan. - echo 01/13: normal LV systolic function, EF 55-60%; normal wall motion. Hypertension - Continue home norvasc and losartan per cardiology recommendations - monitor vitals History of breast cancer with metastasis to liver, kidneys, bones - Hold oral chemotherapy DVT PPx SCDs; lovenox on hold given thrombocytopenia Full code Dispo: inpatient rehab
[2024-01-15] MEDS: AMLODIPINE 10 MG TAB PO SCH (21:00)
[2024-01-15] MEDS: LOSARTAN POTASSIUM 50 MG TABLET PO SCH (21:01)
[2024-01-16 06:54] LABS: Hematocrit 25.6 % (36.0-45.0); Hemoglobin 8.8 g/dL (12.0-15.0); MCH 30.7 pg (27.0-35.0); MCHC 34.5 g/dL (32.0-36.0); Platelets 36 thou/uL (152-406); RBC Red Blood Cell Count 2.87 M/uL (3.86-4.86); Red Cell Distribution Width 15.8 % (12.1-15.2)
[2024-01-16 06:56] VITALS: BP 126/54; TEMP 97.2
[2024-01-16 07:02] LABS: Anion Gap 5.8 mEq/L (5.0-15.0); Potassium 3.8 mEq/L (3.5-5.1)
[2024-01-16 08:13] LABS: Blood Morphology Comment NOT SEEN (NOT SEEN); Platelet Estimate DECR; White Blood Cell Scan OK (OK)
--- NOTE | 2024-01-16 09:01 | P.DS ---
Admission Date: 01/09/24 Discharge Date: 01/16/24 Disposition: TRANSFER TO INPATIENT REHAB Discharge Condition: GOOD Reason for Admission: Bradycardia Brief History of Present Illness: 73 yo F with Pmhx hypertension, hypothyroidism, breast cancer with mets to bones, kidneys, and liver who presented to the ED 01/09/24 with complaint of severe lower abdominal pain that began 3 days prior. Upon arrival to the ED, patient reports no relief to the severe lower abdominal pain, skin [place] in color, dry mucous membranes, expiratory wheezes to bilateral lung rosas. Family reports a recent right hip surgery which required her to go to inpatient rehab and then returned home thereafter. CT scan revealing pneumoperitoneum. Surgery Dr. Winn consulted and took patient to OR for exploratory laparotomy. Hospital Course: Problem List Perforated gastric ulcer S/P repair with Ted patch 01/08 Gastroduodenal ulceration Thrombocytopenia Sinus bradycardia History of hypertension History of hypothyroidism History of breast cancer with metastasis to liver, kidneys, bones Presented with severe abdominal pain which began 3 days prior to ED arrival. Found to have perforated gastric ulcer, underwent exploratory laparotomy with Ted patch perforated gastric ulcer and lysis of adhesions on 01/09/[address] Winn. PPN was initiated on 01/10, discontinued on 01/13. Tolerating soft diet, bowel movement 01/14. Completed 7 days of Zosyn postoperatively (01/08- 01/15). Patient with new onset bradycardia, asymptomatic; cardiology was consulted, sinus bradycardia with no signs of advanced heart block. She denies any pain or abdominal tenderness, no chest pain, no nausea/vomiting. Deemed stable for inpatient rehab. Continue Protonix. Nebulizer treatments as needed Advance diet as tolerated Incentive spirometry Follow-ups: - Dr. Winn within 1 week. If still in inpatient rehab, consult Dr. Winn to have jones removed. Consults: - Cardiology: Dr. Fairchild - Surgery: Dr. Winn Physical Exam General: Awake, alert, Oriented x3. in no apparent distress. HEENT: Atraumatic, Normocephalic. neck supple. Respiratory: unlabored respirations on room air. Cardiovascular: Normal pulses. Regular rhythm. No edema. Abdomen: Normoactive bowel sounds. Soft, nontender. Surgical incision sites without surrounding erythema or purulent drainage. Musculoskeletal/Skin: right hip/thigh surgical incision site without surrounding erythema or abnormal drainage.. Abdominal incision site with staple intact. No rashes. Skin warm and dry. Neurological: Normal speech Vital Signs/Physical Exam: Temp Pulse Resp BP Pulse Ox 97.2 F 51 16 126/54 L 94 01/16/24 04:00 01/16/24 04:00 01/16/24 04:00 01/16/24 04:00 01/16/24 04:00 Laboratory Data at Discharge: WBC 1.80 thou/uL (4.3-10.9) L 01/16/24 06:00 Hgb 8.8 g/dL (12.0-15.0) L 01/16/24 06:00 Hct 25.6 % (36.0-45.0) L 01/16/24 06:00 Plt Count 36 thou/uL (152-406) L 01/16/24 06:00 Sodium 136 mEq/L (136-145) 01/16/24 06:00 Potassium 3.8 mEq/L (3.5-5.1) 01/16/24 06:00 BUN 26 mg/dL (7-18) H 01/16/24 06:00 Creatinine 0.62 mg/dL (0.55-1.02) 01/16/24 06:00 Glucose 84 mg/dL (74-106) 01/16/24 06:00 Phosphorus 2.0 mg/dL (2.5-4.9) L 01/16/24 06:00 Magnesium 2.0 mg/dL (1.6-2.4) 01/16/24 06:00 Total Bilirubin 1.0 mg/dL (0.2-1.0) 01/14/24 04:32 AST 23 U/L (15-37) 01/14/24 04:32 ALT 67 U/L (13-56) H 01/14/24 04:32 Alkaline Phosphatase 82 U/L (45-117) 01/14/24 04:32 Triglycerides 111 mg/dL (<150) 01/12/24 05:00 Triglycerides 113 mg/dL (<150) 01/12/24 05:00 Cholesterol 144 mg/dL (<200) 01/12/24 05:00 HDL Cholesterol 44 mg/dL (40-60) 01/12/24 05:00 Cholesterol/HDL Ratio 3.27 01/12/24 05:00 Lipase 324 U/L (13-75) H 01/09/24 14:20 Home Medications: Amlodipine [Norvasc] 10 mg PO BEDTIME 01/09/24 Carvedilol [Coreg] 6.25 mg PO BIDWM 01/09/24 Enoxaparin Sodium [Lovenox 30 MG INJ] 30 mg SQ BID 01/09/24 Letrozole [Femara] 2.5 mg PO DAILY 01/09/24 Losartan Potassium [Cozaar] 50 mg PO BID 01/09/24 dexAMETHasone [Dexamethasone] 6 mg PO TID 01/09/24 hydroCHLOROthiazide [Hydrochlorothiazide*] 12.5 mg PO DAILY 01/09/24 Physician Discharge Instructions: PROBLEM: Gastric Ulcer, Pneumoperitoneum GOAL: Clear understanding of disease process INSTRUCTIONS: Presented with severe abdominal pain which began 3 days prior to ED arrival. Found to have perforated gastric ulcer, underwent exploratory laparotomy with G raham patch perforated gastric ulcer and lysis of adhesions on 01/09/[address] Winn. PPN was initiated on 01/10, discontinued on 01/13. Tolerating soft diet, bowel movement 01/14. Completed 7 days of Zosyn postoperatively (01/08- 01/15). Patient with new onset bradycardia, asymptomatic; cardiology was consulted, sinus bradycardia with no signs of advanced heart block. She denies any pain or abdominal tenderness, no chest pain, no nausea/vomiting. Deemed stable for inpatient rehab. Continue Protonix. Nebulizer treatments as needed Advance diet as tolerated Incentive spirometry Follow-ups: - Dr. Winn within 1 week. If still in inpatient rehab, consult Dr. Winn to have jones removed. Consults: - Cardiology: Dr. Fairchild Diet: Regular Activity: Fall precautions [facility]ITY [facility] Services Needed: Name of Company: [facility] Date or Referral: 01/14/24 Diet: Regular Activity: Fall precautions Followup: Carter Winn MD [ACTIVE - CAN ADMIT] - Pina Franklin MD [Primary Care Provider] -
== END 2024-01-16 10:40 | DRG 326 ==
LOC: ER 13:28 → ERHOLD 17:33 → 3RD-ICU 17:55 → 4TH 01-12 08:51
PROVIDERS: ADMIT Internal Medicine; ATTEND Hospitalist
PROC: 0DNU0ZZ Release Omentum, Open Approach (ICD-10-PCS; 2024-01-09)
PROC: 0DH67UZ Insertion of Feeding Device into Stomach, Via Natural or Artificial Opening (ICD-10-PCS; 2024-01-09)
PROC: 02HV33Z Insertion of Infusion Device into Superior Vena Cava, Percutaneous Approach (ICD-10-PCS; 2024-01-09)
PROC: 0DU607Z Supplement Stomach with Autologous Tissue Substitute, Open Approach (ICD-10-PCS; principal; 2024-01-09 18:30)
DX: K25.5 Chronic or unspecified gastric ulcer with perforation (principal); K65.9 Peritonitis, unspecified; C78.7 Secondary malignant neoplasm of liver and intrahepatic bile duct; C79.51 Secondary malignant neoplasm of bone; C79.00 Secondary malignant neoplasm of unspecified kidney and renal pelvis; N17.9 Acute kidney failure, unspecified; I10 Essential (primary) hypertension; E03.9 Hypothyroidism, unspecified; K59.00 Constipation, unspecified; N28.89 Other specified disorders of kidney and ureter; D69.6 Thrombocytopenia, unspecified; R00.1 Bradycardia, unspecified; R73.9 Hyperglycemia, unspecified; Z85.3 Personal history of malignant neoplasm of breast; Z79.02 Long term (current) use of antithrombotics/antiplatelets; Z96.641 Presence of right artificial hip joint; Z90.710 Acquired absence of both cervix and uterus; Z79.899 Other long term (current) drug therapy
CPT/HCPCS: 36415; 74018; 74177; 80048; 80053; 80061; 82947; 83036; 83690; 83735; 84100; 84132; 84134; 84478; 85025; 85027; 93005; 93306; 94010; 94640; 97110; 97116; 97161; 97530; 99285; C9113; J1100; J2270; J2405; J2543; J2550; J2704; J3010; J3475; J7030; J7120; Q9967

== ENCOUNTER 2024-01-16 10:44 | Inpatient (IN) | payer OTHER ==
--- OUTSIDE RECORDS SUMMARY | 2024-01-16 10:47 | XMS REPORT | Continuity of Care Document ---
Author Name Unknown Address [address] [facility] [place] [address] [facility] Address [address] [facility] [address] [place] [address] Care Team Providers Care Change Coordinator Name Role Phone ALYSSA KUNZ Primary Care Physician DANIELA Hernandez Attending Clinician Unavail able ALISTAIR GARNER Attending Clinician Donna Fern Bills Attending Clinician UnaRah Castillo Attending Clinician Unavailable ADDIE AGUILERA Attending Clinician UnavailADDIE Morgan Attending Clinician UnavailHafsa Angel PTA Attending Clinician Unavail able Addie Aguilera MD Attending Clinician [phone] Po Manzanares PA-C Attending Clinician [phone] Irais Das PTA Attending Clinician Samara Coulter PT Attending Clinician UnavailPO Muhammad Attending Clinician Unavailable Unknown, Attending Attending Clinician Unavailab shahana Doctor Unassigned, [place] Attending Clinician U Daniela Naqvi MD Attending Clinician Alyssa Kunz MD Attending Clinician [phone] Pepe BERTRAND, Kailyn Shields Attending Clinician Unavailab le Nurse, [facility] Pcp Assessment Clinic Attending Aston glover Unavailable Rah Jiang MD Attending Clinician [phone] RAH JIANG Attending Clinician Unavailable Scooby Austin Attending Clinician Unavailable Pcp, Medicare Wellness [facility] Fm Attending Clinicia n Unavailable ALYSSA KUNZ Attending Clinician Unavailable Pcp-Lab Attending Clinician Unavailable Srikanth Rogers DO Attending Clinician [phone] DAYNA SINGLETON Attending Clinician Unavailable Alfonso Lucia DO Attending Clinician [phone] Dayna Singleton MD Attending Clinician [phone] Thea Unger MD Attending Clinician [phone] Tremayne Miller MD Attending Clinician [phone] Fern Mata Admitting Clinician Rah Toney Admitting Clinician Unavailable DANIELA MCQUEEN Admitting Clinician Unavail able Payers Payer Name Policy Type Policy Number Effective Date Expirati on Date Source MEDICARE PART A \T\ B [id number] 2014 00:00:00 PHYSICIAN CAROLINE [id number] 2017 00:00:00 Problems Condition Name Condition Details Condition Category Status Onset Date Resolution Date Last Treatment Date Treating Clinician Comments Source Skin lesion of face Skin lesion of face Disease Active 05-01 00:00: 00 [facility] Liver cyst Liver cyst Disease Active 02-06 00:00: 00 [facility] Hyperbilir ubinemia Hyperbilir ubinemia Disease Active 02-06 00:00: 00 [facility] Invasive ductal carcinoma of breast, stage I, right Invasive ductal carcinoma of breast, stage I, right Disease Active 2017-09 00:00: 00 [facility] Vitamin D deficiency Vitamin D deficiency Disease Active 01-04 00:00: 00 [facility] Essential hypertensi on Essential hypertensi on Disease Active 06-10 00:00: 00 [facility] Acquired hypothyroi dism Acquired hypothyroi dism Disease Active 06-10 00:00: 00 [facility] History of condyloma acuminatum History of condyloma acuminatum Disease Active 09-25 00:00: 00 [facility] History of cervical dysplasia History of cervical dysplasia Disease Active 09-25 00:00: 00 [facility] Urinary incontinen ce, unspecifie d incontinen ce type Urinary incontinen ce, unspecifie d incontinen ce type Disease Active 09-24 00:00: 00 [facility] Cystocele, midline Cystocele, midline Disease Active 09-24 00:00: 00 [facility] Invasive ductal carcinoma of breast, stage [...] of chemother apy: 02/10/2016 Chemother apy agent: [id number] tor Therapy: Anastrazo le, letrozole . Currently taking exemestan e. [facility] Allergies, Adverse Reactions, Alerts Allergy Name Allergy Type Status Severity Reaction(s) Onset Date Inactive Date Treating Clinician Comments Source codeine DA Active U NAUSEA 12-13 00:00: 00 [facility] aspirin DA Active U NAUSEA 12-13 00:00: 00 [facility] cefdinir DA Active U NAUSEA 12-13 00:00: 00 [facility] morphine DA Active U NAUSEA 12-13 00:00: 00 [facility] No Known Allergie s DA Active U 12-12 00:00: 00 [facility] MORPHINE DRUG INGREDI Active N/V 04-11 00:00: 00 [facility] Morphine Propensi ty to adverse reaction s Active Nausea and/or Vomiting 04-11 00:00: 00 [facility] ASPIRIN DRUG INGREDI Active Other-Cmnt 2016-09 00:00: 00 [facility] Aspirin Propensi ty to adverse reaction s Active Other - See comments 2016-09 00:00: 00 [facility] Iodine And Iodide Containi ng Products Propensi ty to adverse reaction s Active Unknown - See comments 05-01 00:00: 00 Upsets her stomach [facility] CEFDINIR DRUG INGREDI Active Hives 05-01 00:00: 00 [facility] CODEINE DRUG INGREDI Active Unknown-Cmnt 05-01 00:00: 00 [facility] IODINE AND IODIDE CONTAINI NG PRODUCTS Drug Class Active Unknown-Cmnt 05-01 00:00: 00 [facility] Cefdinir Propensi ty to adverse reaction s Active Hives 05-01 00:00: 00 [facility] Iodine And Iodide Containi ng Products Propensi ty to adverse reaction s Active Unknown - See comments 05-01 00:00: 00 Upsets her stomach [facility] Codeine Propensi ty to adverse reaction s Active Unknown - See comments 05-01 00:00: 00 [facility] Social History Social Habit Start Date Stop Date Quantity Comments Source History SDOH Alcohol Frequency [facility] History SDOH Alcohol Std Drinks [facility] History SDOH Alcohol Binge [facility] Gender identity [facility] Sexual orientation [facility] Alcohol intake 2023-04-30 00:00:00 2023-04-30 00:00:00 0 /d [facility] Exposure to SARS-CoV-2 (event) 2022-05-24 00:00:00 2022-06-03 13:15:00 Not sure [facility] Tobacco use and exposure 2022-04-24 00:00:00 2022-04-24 00:00:00 Smokeless tobacco non-user [facility] History of Social function 2022-04-24 00:00:00 2022-04-24 00:00:00 [facility] Alcohol Comment 2015-05-07 00:00:00 2015-05-07 00:00:00 drank for 4-5 years, quit 1987 [facility] Sex Assigned At 1950 00:00:00 1950 00:00:00 [facility] Smoking Status Start Date Stop Date Source Never smoked tobacco [facility] Medications Ordered Medication Name Filled Medication Name Start Date Stop Date Current Medication? Ordering Clinician Indication Dosage Frequency Signature (SIG) Comments Components Source albuterol (VENTOLIN) inhaler 2 Puff 2022-09 20:00: 00 07-20 19:17 :00 No [id number] 2{puff} [facility] albuterol 90 mcg/actuati on inhaler 2022-09 00:00: 00 Yes [id number] 2{puff} Inhale 2 Puffs every 6 (six) hours as needed for Shortness of Breath. [facility] HYDROCHLORO THIAZIDE 25 mg tablet 01-30 00:00: 00 Yes [id number] TAKE 1 TABLET BY MOUTH EVERY DAY [facility] LEVOTHYROXI NE 50 mcg tablet 01-30 00:00: 00 Yes [id number] 50ug TAKE 1 TABLET BY MOUTH EVERY MORNING. ON EMPTY STOMACH. [facility] multivit with iron,minera ls (MULTIVITAM IN AND MINERALS ORAL) 01-03 11:29: 15 Yes Take by mouth daily. [facility] levothyroxi ne 50 mcg tablet 12-20 00:00: 00 01-30 00:00 :00 No [id number] 50ug Take 1 tablet by mouth every morning. On empty stomach. [facility] hydroCHLORO thiazide 25 mg tablet 12-20 00:00: 00 01-30 00:00 :00 No [id number] 25mg Take 1 tablet by mouth daily. [facility] HYDROCHLORO THIAZIDE 25 mg tablet 3- 00:00: 00 12-20 00:00 :00 No [id number] TAKE 1 TABLET BY MOUTH EVERY DAY [facility] levothyroxi ne 50 mcg tablet 2019-09 2- 00:00: 00 12-11 00:00 :00 No [id number] 50ug Take 1 tablet by mouth every morning. On empty stomach. [facility] albuterol (PROAIR HFA) 90 mcg/actuati on inhaler 2019-09 00:00: 00 Yes [id number] 2{puff} Inhale 2 Puffs every 6 (six) hours as needed for Wheezing or Shortness of Breath. [facility] Cholecalcif sly, Vitamin D3, (VITAMIN D3) 2,000 unit capsule 2016-09 00:00: 00 Yes [id number] 1999U Take 1 capsule by mouth daily. [facility] Vital Signs Vital Name Observation Time Observation Value Comments S ource Systolic blood pressure 2023-07-20 19:21:00 146 mm[Hg] [facility] Diastolic blood pressure 2023-07-20 19:21:00 85 mm[Hg] [facility] Heart rate 2023-07-20 19:01:00 60 /min [facility] Body temperature 2023-07-20 19:01:00 36.72 [place] [facility] Respiratory rate 2023-07-20 19:01:00 18 /min [facility] Body height 2023-07-20 19:01:00 160 cm [facility] Body weight 2023-07-20 19:01:00 91.581 kg [facility] BMI 2023-07-20 19:01:00 35.76 kg/m2 [facility] Oxygen saturation in Arterial blood by Pulse oximetry 2023-07-20 19:01:00 95 /min [facility] Systolic blood pressure 2023-04-30 18:03:00 163 mm[Hg] [facility] Diastolic blood pressure 2023-04-30 18:03:00 79 mm[Hg] [facility] Heart rate 2023-04-30 18:03:00 61 /min [facility] Respiratory rate 2023-04-30 18:03:00 18 /min [facility] Body height 2023-04-30 18:03:00 160 cm [facility] Body weight 2023-04-30 18:03:00 92.035 kg [facility] BMI 2023-04-30 18:03:00 35.94 kg/m2 [facility] Oxygen saturation in Arterial blood by Pulse oximetry 2023-04-30 18:03:00 97 /min [facility] Systolic blood pressure 2022-04-24 19:04:00 157 mm[Hg] [facility] Diastolic blood pressure 2022-04-24 19:04:00 93 mm[Hg] [facility] Heart rate 2022-04-24 19:04:00 87 /min [facility] Body temperature 2022-04-24 19:04:00 36.94 [place] [facility] Body height 2022-04-24 19:04:00 162.6 cm [facility] Body weight 2022-04-24 19:04:00 92.806 kg [facility] BMI 2022-04-24 19:04:00 35.12 kg/m2 [facility] Oxygen saturation in Arterial blood by Pulse oximetry 2022-04-24 19:04:00 95 /min [facility] Procedures Procedure Date / Time Performed Performing Clinician Source [id number] 2023-12-17 00:00:00 ROSMI [facility] [id number] 2023-12-17 00:00:00 ROSMI [facility] [id number] 2023-12-15 00:00:00 SHAJA02 [facility] XR HIPS 2 VW BILATERAL 2023-07-20 19:48:44 Janee Manzanares [facility] ASSIGNMENT OF BENEFITS 2023-07-20 18:47:56 Docto r Unassigned, [place] [facility] BI SCREENING TOMOSYNTHESIS BILATERAL 2023-04-30 17:23:27 Daniela Mcqueen [facility] Encounters Start Date/Time End Date/Time Encounter Type Admission Type Attending [facility] Facility Care Department Encounter ID Source 2023-12-16 17:55:00 2023-12-24 12:35:00 Inpatient Fern Tovar [facility] REHA [id number] [facility] 2023-12-13 22:03:00 2023-12-16 18:08:00 Inpatient Rah Ramirez [facility] MEDI.01 [id number] 91 [facility] 2023-09-09 09:30:00 2023-09-09 10:14:38 Outpatient R ADDIE AGUILERA CRAIG [facility] [id number] [facility] 2023-09-09 09:30:00 2023-09-09 10:14:38 Ancillary Visit Hafsa Villa Craig L [facility] 1.2.840.114 350.1.13.10 4.2.7.2.686 [id number] [facility] 2023-09-08 11:00:00 2023-09-08 11:45:00 Ancillary Visit Hafsa Villa Craig L [facility] 1.2.840.114 350.1.13.10 4.2.7.2.686 [id number] [facility] 2023-09-02 11:00:00 2023-09-02 11:45:00 Ancillary Visit Hafsa Villa Craig L Vanaphan, Nancy [facility] 1.2.840.114 350.1.13.10 4.2.7.2.686 [id number] [facility] 2023-08-31 10:15:00 2023-08-31 11:00:00 Ancillary Visit Irais Das [facility] 1.2.840.114 350.1.13.10 4.2.7.2.686 [id number] [facility] 2023-08-24 16:00:00 2023-08-24 16:33:59 Ancillary Visit Samara Cano [facility] L [facility] 1.2.840.114 350.1.13.10 4.2.7.2.686 [id number] [facility] 2023-08-20 10:15:00 2023-08-20 11:06:21 Ancillary Visit Hafsa Villa Craig L Vanaphan, [facility] BUILDING 1.2.840.114 350.1.13.10 4.2.7.2.686 [id number] [facility] 2023-08-18 11:00:00 2023-08-18 11:45:00 [facility]illary [facility] 1.2.840.114 350.1.13.10 4.2.7.2.686 [id number] [facility] 2023-08-18 11:00:00 2023-08-18 11:00:00 Outpatient R ADDIE AGUILERA [facility]IG [facility] [id number] [facility] 2023-08-16 11:00:00 2023-08-16 11:00:00 Outpatient R [facility] [id number] [facility] 2023-08-10 09:30:00 2023-08-10 10:23:34 Ancillary Visit Hafsa Villa Craig L [facility] 1.2840.114 350.1.13.10 4.2.7.2.686 [id number] [facility] 2023-08-04 09:30:00 2023-08-04 10:15:00 Ancillary Visit Allen Hafsa Addie Ver[facility] 1.2840.114 350.1.13.10 4.2.7.2.686 [id number] [facility] 2023-07-30 10:15:00 2023-07-30 11:03:11 Ancillary Visit Samara Cano Craig L [facility] 1.2.114 350.1.13.10 4.2.7.2.686 [id number] [facility] 2023-07-20 14:12:34 2023-07-20 23:59:00 Outpatient R BILLY PO [facility] [id number] [facility] 2023-07-20 14:12:34 2023-07-20 23:59:00 Hospital Encounter Billy Po [facility] 1.2840.114 350.1.13.10 4.2.7.2.686 [id number] [facility] 2023-07-20 13:40:00 2023-07-20 15:17:33 Urgent Care Po Manzanares Unknown, Attending [facility] 1.2840.114 350.1.13.10 4.2.7.2.686 [id number] [facility] 2023-07-20 00:00:00 2023-07-20 00:00:00 Orders Only Doctor Unassigned, [place] [facility] 1.2840.114 350.1.13.10 4.2.7.2.686 [id number] [facility] 2023-04-30 11:47:52 2023-04-30 23:59:00 Hospital Encounter Daniela Mcqueen [facility] 1.2.840.114 350.1.13.10 4.2.7.2.686 [id number] [facility] 2023-04-30 13:00:00 2023-04-30 13:15:00 Office Visit Daniela Mcqueen [facility] 1.2.840.114 350.1.13.10 4.2.7.2.686 [id number] [facility] 2023-04-30 13:00:00 2023-04-30 13:00:00 Outpatient R CHARISSE DANIELA [facility] [id number] [facility] 2023-01-29 00:00:00 2023-01-29 00:00:00 Patient Secure Msg KunzAlyssa [facility] 1.2.840.114 350.1.13.10 4.2.7.2.686 [id number] [facility] 2022-06-29 00:00:00 2022-06-29 00:00:00 Patient Secure Msg Doctor Unassigned, [place] [facility] 1.2.840.114 350.1.13.10 4.2.7.2.686 [id number] [facility] 2022-04-25 00:00:00 2022-04-25 00:00:00 Patient Secure Msg Doctor Unassigned, [place] [facility] 1.2.840.114 350.1.13.10 4.2.7.2.686 [id number] [facility] 2022-04-24 13:03:42 2022-04-24 23:59:00 Outpatient R DANIELA MCQUEEN [facility] [id number] [facility] 2022-04-24 13:03:42 2022-04-24 23:59:00 Hospital Encounter Daniela Mcqueen [facility] 1.2.840.114 350.1.13.10 4.2.7.2.686 [id number] [facility] 2022-04-24 14:15:00 2022-04-24 14:30:00 [facility] 1.2.840.114 350.1.13.10 4.2.7.2.686 [id number] [facility] 2022-04-24 14:15:00 2022-04-24 14:15:00 Outpatient R DANIELA MCQUEEN [facility] [id number] [facility] 2022-03-20 00:00:00 2022-03-20 00:00:00 Refill Alyssa Kunz [facility] 1.2.840.114 350.1.13.10 4.2.7.2.686 [id number] [facility] 2022-01-30 00:00:00 2022-01-30 00:00:00 Refill Alyssa Kunz [facility] 1.2.840.114 350.1.13.10 4.2.7.2.686 [id number] [facility] 2021-05-09 00:00:00 2021-05-09 00:00:00 Patient Secure Msg Alyssa Kunz [facility] 1.2.840.114 350.1.13.10 4.2.7.2.686 [id number] [facility] 2021-05-07 00:00:00 2021-05-07 00:00:00 Patient Secure Msg Doctor Unassigned, [place] [facility] 1.2.840.114 350.1.13.10 4.2.7.2.686 [id number] [facility] 2021-04-30 00:00:00 2021-04-30 00:00:00 Letter (Out) Kailyn Cantu [facility] 1.0.114 350.1.13.10 4.2.7.2.686 [id number] [facility] 2021-04-30 00:00:00 2021-04-30 00:00:00 Telephone Alyssa Kunz [facility] 1.0.114 350.1.13.10 4.2.7.2.686 [id number] [facility] 2021-04-30 00:00:00 2021-04-30 00:00:00 Patient Secure Msg Doctor Unassigned, [place] [facility] 1.0.114 350.1.13.10 4.2.7.2.686 [id number] [facility] 2021-04-29 18:30:33 2021-04-29 18:45:33 Laboratory Only Nurse, Gal Pcp Assessment Clinic Rah Jiang [facility] 1.840.114 350.1.13.10 4.2.7.2.686 [id number] [facility] 2021-04-29 18:30:00 2021-04-29 18:30:00 Outpatient RAH CREWS [facility] [id number] [facility] 2021-04-08 13:00:00 2021-04-08 13:00:00 Outpatient DANIELA NORMAN [facility] [id number] [facility] 2021-04-01 09:17:33 2021-04-01 23:59:00 Hospital Encounter Daniela Mcqueen [facility] 1.840.114 350.1.13.10 4.2.7.2.686 [id number] [facility] 2021-04-01 00:00:00 2021-04-01 00:00:00 Outpatient DANIELA NORMAN [facility] [id number] [facility] 2021-01-18 00:00:00 2021-01-18 00:00:00 Patient Secure Msg Doctor Unassigned, [place] [facility] 1..114 350.1.13.10 4.2.7.2.686 [id number] [facility] 2021-01-14 00:00:00 2021-01-14 00:00:00 Pre Visit Outreach Scooby Austin [facility] 1.114 350.1.13.10 4.2.7.2.686 [id number] [facility] 2021-01-03 10:55:07 2021-01-03 11:46:59 Nurse Visit Pcp, Medicare Wellness Gal Alyssa Kunz [facility] 1..114 350.1.13.10 4.2.7.2.686 [id number] [facility] 2021-01-03 11:00:00 2021-01-03 11:00:00 Outpatient R ALYSSA KUNZ [facility] [id number] [facility] 2020-12-24 00:00:00 2020-12-24 00:00:00 Pre Visit Outreach Alyssa Kunz [facility] 1..114 350.1.13.10 4.2.7.2.686 [id number] [facility] 2020-12-20 12:38:06 2020-12-20 12:53:06 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 Alyssa Kunz [facility] 1.20.114 350.1.13.10 4.2.7.2.686 [id number] [facility] 2020-12-20 11:16:56 2020-12-20 12:40:04 Office Visit Alyssa Kunz [facility] 1.2.840.114 350.1.13.10 4.2.7.2.686 [id number] [facility] 2020-12-20 11:00:00 2020-12-20 11:00:00 Outpatient R ALYSSA KUNZ [facility] [id number] [facility] 2020-12-20 00:00:00 2020-12-20 00:00:00 Orders Only Doctor Unassigned, [place] [facility] 1.2.840.114 350.1.13.10 4.2.7.2.686 [id number] [facility] 2020-12-11 00:00:00 2020-12-11 00:00:00 Refill Alyssa Kunz [facility] 1.2.840.114 350.1.13.10 4.2.7.2.686 [id number] [facility] 2020-11-27 00:00:00 2020-11-27 00:00:00 Patient Secure Msg Alyssa Kunz [facility] 1.2.840.114 350.1.13.10 4.2.7.2.686 [id number] [facility] 2020-11-25 00:00:00 2020-11-25 00:00:00 Patient Outreach Srikanth Rogers [facility] 1.2.840.114 350.1.13.10 4.2.7.2.686 [id number] [facility] 2020-11-21 00:00:00 2020-11-21 00:00:00 Refill Alyssa Kunz [facility] 1.2.840.114 350.1.13.10 4.2.7.2.686 [id number] [facility] 2020-08-27 00:00:00 2020-08-27 00:00:00 Refill Alyssa Kunz [facility] 1.2.840.114 350.1.13.10 4.2.7.2.686 [id number] [facility] 2020-08-19 00:00:00 2020-08-19 00:00:00 Refill Alyssa Kunz [facility] 1.2.840.114 350.1.13.10 4.2.7.2.686 [id number] [facility] 2020-07-23 00:00:00 2020-07-23 00:00:00 Refill Alyssa Kunz [facility] 1.2.840.114 350.1.13.10 4.2.7.2.686 [id number] [facility] 2020-07-15 00:00:00 2020-07-15 00:00:00 Refill Alyssa Kunz [facility] 1.2.840.114 350.1.13.10 4.2.7.2.686 [id number] [facility] 2020-06-21 12:08:08 2020-06-21 12:41:20 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 Alyssa Kunz [facility] 1.2.840.114 350.1.13.10 4.2.7.2.686 [id number] [facility] 2020-06-21 10:56:02 2020-06-21 12:09:31 Office Visit Alyssa Kunz [facility] 1.2.840.114 350.1.13.10 4.2.7.2.686 [id number] [facility] 2020-06-21 11:00:00 2020-06-21 11:00:00 Outpatient R ALYSSA KUNZ [facility] [id number] [facility] 2020-04-10 09:11:00 2020-04-10 23:59:00 Hospital Encounter [facility] 1.0.114 350.1.13.10 4.2.7.2.686 [id number] [facility] 2020-04-10 09:10:59 2020-04-10 09:10:59 Outpatient R [facility] [id number] [facility] 2020-04-10 09:10:00 2020-04-10 09:10:00 Hospital Encounter [facility] 1.0.114 350.1.13.10 4.2.7.2.686 [id number] [facility] 2020-03-26 09:48:37 2020-03-26 10:03:37 Office Visit Charisse Daniela [facility] [facility] 1.0.114 350.1.13.10 4.2.7.2.686 [id number] [facility] 2020-03-26 10:00:00 2020-03-26 10:00:00 Outpatient R CHARISSE DANIELA [facility] [id number] [facility] 2020-03-25 15:00:00 2020-03-25 15:00:00 Outpatient DAYNA MCCANN [facility] [id number] [facility] 2020-03-25 11:47:14 2020-03-25 12:07:14 Telemedici ne Visit Alfonso Lucia Madiha A [facility] 1..114 350.1.13.10 4.2.7.2.686 [id number] [facility] 2020-03-25 00:00:00 2020-03-25 00:00:00 Refill UngerThea [facility] 1.2.840.114 350.1.13.10 4.2.7.2.686 [id number] [facility] 2020-03-08 13:41:32 2020-03-08 23:59:00 Outpatient DANIELA NORMAN [facility] [id number] [facility] 2020-03-08 13:41:00 2020-03-08 23:59:00 Hospital Encounter Daniela Mcqueen [facility] 1.2.840.114 350.1.13.10 4.2.7.2.686 [id number] [facility] 2020-03-08 14:00:00 2020-03-08 14:00:00 Outpatient DANIELA NORMAN [facility] [id number] [facility] 2019-12-14 00:00:00 2019-12-14 00:00:00 Refpro UngerThea [facility] 1.2.840.114 350.1.13.10 4.2.7.2.686 [id number] [facility] 2019-06-09 00:00:00 2019-06-09 00:00:00 Aleah [facility] 1.2.840.114 350.1.13.10 4.2.7.2.686 [id number] [facility] 2019-06-06 00:00:00 2019-06-06 00:00:00 Aleah UngerThea sargent Jo [facility] 1.2.840.114 350.1.13.10 4.2.7.2.686 [id number] [facility] 2019-05-29 00:00:00 2019-05-29 00:00:00 Aleah UngerRobertThea [facility] 1.2.840.114 350.1.13.10 4.2.7.2.686 [id number] [facility] 2019-05-27 00:00:00 2019-05-27 00:00:00 Tremayne Verma [facility] 1.2.840.114 350.1.13.10 4.2.7.2.686 [id number] [facility] Results Test Description Test Time Test Comments Results Result Co mments Source COMPREHENSIVE METABOLIC KNMLX0396-43-58 06:52:00* Test Item Value Reference Range Interpretation [...] ALKP) 157 IUnit/L 20-125 H CBC W/AUTO DRWG8366-11-57 06:41:00* Test Item Value Reference Range Interpretation [...] 0.00 x10 3/uL 0.0-0.1 N COMPREHENSIVE METABOLIC YDGIL5041-37-37 05:13:00* Test Item Value Reference Range Interpretation [...] = ALKP) 159 IUnit/L 20-125 H CA27-29, AMRMSET2319-22-04 05:13:00* Test Item Value Reference Range Interpretation Comme nts CA27-29, BIOMIRA (test code = PK3676) 51.4 U/mL 0.0-38.6 A Siemens HudlauOcean Seed Immunochemiluminometric Methodology (ICMA)Values obtained with different assay methods or kits cannotbe used interchangeably. Results cannot be interpreted asabsolute evidence of the presence or absence of malignantdisease.Performed At: [facility] [address] [id number] Faria MD Ph:[phone] CA 28-15923-91-31 10:08:00* Test Item Value Reference Range Interpretation Comme [facility] CA 15-3 (test code = CA15) 35.8 U/mL 0.0-25.0 H [facility] Electrochemiluminescence Immunoassay(ECLIA)Values obtained with different assay methods or kits cannotbe used interchangeably. Results cannot be interpreted asabsolute evidence of the presence or absence of malignantdisease.Performed At: [facility] [id number] Faria MD Ph:[phone] CBC W/AUTO GDHV9467-41-22 07:04:00* Test Item Value Reference Range Interpretation [...] NRBC#) 0.00 x10 3/uL 0.0-0.1 N VITAMIN [id number] 07:04:00* Test Item Value Reference Range Interpretation Comme nts VITAMIN B12 (test code = VITB12) 899 pg/mL 193-986 N Indication for Test: Osteopenia/Bone Dis RiskFOLIC QQBZ1148-24-39 07:04:00* Test Item Value Reference Range Interpretation Comme nts FOLIC ACID (test code = FOL) 8.2 ng/mL 3.1-17.5 N Indication for Test: Osteopenia/Bone Dis RiskVITAMIN D 13-KLDPEDB9667-42-29 07:04:00* Test Item Value Reference Range Interpretation Comme nts VITAMIN D 25-HYDROXY (test c ode = VITD25) 37.7 ng/mL 30-100 N Indication for Test: Osteopenia/Bone Dis RiskTHYROID STIMULATING HORMONE 2023-12-17 07:03:00* Test Item Value Reference Range Interpretation Comme nts THYROID STIMULATING HORMONE (test code = TSH) 4.79 0.42-5.47 N Result s in sunil-International Units/mL COVID 19 Asymptomatic IH AZ5014-28-46 12:47:00* Test Item Value Reference Range Interpretation [...] moderate, high or waivedcomplexity tests. BASIC METABOLIC MKXTV5754-76-79 07:18:00* Test Item Value Reference Range Interpretation [...] CA) 8.3 mg/dL 8.0-10.5 N CBC W/AUTO UBLV6708-27-65 06:57:00* Test Item Value Reference Range Interpretation [...] 0.00 x10 3/uL 0.0-0.1 N COMPREHENSIVE METABOLIC QEKMN9197-89-50 07:25:00* Test Item Value Reference Range Interpretation [...] ALKP) 158 IUnit/L 20-125 H CBC W/AUTO NJKJ0039-29-81 06:14:00* Test Item Value Reference Range Interpretation [...] = NRBC#) 0.00 x10 3/uL 0.0-0.1 N TOJUSFJIJX1406-32-74 14:50:00* Test Item Value Reference Range Interpretation Comme nts CREATININE (test code = CREAT) 1.2 mg/dL 0.6-1.3 N COMMENTS: Stat creatinine if not already performedPTH INTACT QZHWYCH1969-57-12 04:32:00* Test Item Value Reference Range Interpretation Comme nts PARATHYROID HORMONE INTACT ( test code = PARAI) 11.5 pg/mL 14.0-72.0 L PROTHROMBIN QJCG7329-79-42 23:39:00* Test Item Value Reference Range Interpretation [...] Infarction (to prevent recurrent infarct). COMPREHENSIVE METABOLIC IHKMZ0771-10-20 23:38:00* Test Item Value Reference Range Interpretation [...] ALKP) 167 IUnit/L 20-125 H CBC W/AUTO PAVC5737-90-67 23:15:00* Test Item Value Reference Range Interpretation [...] Notes Date/Time Note Provider Source 2023-12-23 20:46:00 [id number]+ynw 9Zo3gk2x4ogjX8cS1 [facility]/u16270-73-39Z35:46:00 [facility])Tevin/Oncology Progress NoteREPORT#:[id number] REPORT STATUS: SignedREPORT INITIALIZATION DATE:12/23/23 TIME: 2045 PATIENT: JUSTYNA GAMING UNIT #: [id number]#: [id number] [address] [birth year] AGE: 73 SEX: F ATTEND: [...] Pulse Resp B/P B/P Mean Pulse Ox GvS499/03-04/04 36.5-36.9 52-84 16-18 142-169/65-76 92.5-106.4 92-97 Last [...] no distressAbdomen: non-tender, soft, no mass/organomegalyExtremities: moves allNeuro/PROMOTIONS SPECIALIST: alert, oriented X 3, no motor deficits, [...] please call if questions. at 2050 RPT #:[id number] OF REPORTPRProgress gmrj2423-94-32P59:46:00G.LMIH55944465-4808IXYkeutvkdm for patient shodTXNUFQNQANBXQN9329-50-32C79:50:20 [facility]-23 15:53:00 [id number]Sh3a M0VyDkH7stK2pXIQq g21EkykcA0qeDV4odBu8545-02-97L16:53:00 [facility] ([facility])Rehab Progress NoteREPORT#:[id number] REPORT STATUS: SignedREPORT INITIALIZATION DATE:12/23/23 TIME: 1552 PATIENT: JUSTYNA GAMING UNIT #: [id number]#: [id number] [address] [birth year] AGE: 73 SEX: F ATTEND: [...] muscle mass, normal tone, range of motion normalNeuro/PROMOTIONS SPECIALIST: alert, oriented X 3, CNII-XII intact, no [...] surgical oncologist that she has been seen[facility] in [place]. She will need to follow with Dr. [...] Agree with interdisciplinary treatment plan. at 1555 [facility] #:[id number] OF REPORTPRProgress xxxs8675-95-91Y78:53:00G.CECD16589049-8319TXJlrjcnemq for patient lyrdQKUVSHFNHKQWRP6348-35-03V47:55:46 [facility] 2023-12-22 21:21:00 [id number]+cIRuG6oBQBZGsNAB9dodFgx /nUhhdQElfcR1y2aa 8NI9Q0iucwk15htXD8S9356-37-88U80:21:00 [facility])Hospitalist Progress NoteREPORT#:[id number] REPORT STATUS: SignedREPORT INITIALIZATION DATE:12/22/23 TIME: 2120 PATIENT: JUSTYNA GAMING UNIT #: [id number]#: [id number] ROOM/BED: [facility]-2DOB: [birth year] AGE: 73 SEX: F ATTEND: Fern [...] bowel sounds, softExtremities: TRACE PRETIBIAL EDEMAMusculoskeletal: decreased ROMNeuro/PROMOTIONS SPECIALIST: alert, oriented X 3Skin: normal colorPsychiatry: normal [...] as needed for systolic blood pressure greater pitb934 Asthma/pneumonia - DONE WITH ABX History of [...] elevated, Will adjust medication. at 2122 RPT #:[id number] OF REPORTPRProgress rvrl6836-72-51W20:21:00G.RBES47706128-8258ELZqlshdggi for patient srcpOQGRXFKTWDTBRA1903-08-47C32:27:33 [facility] 2023-12-22 14:40:00 [id number]4g/UL67s NsSe5R7w+0auTECUI yifgPW33edSGPBKq/LS0424-02-18K97:40:00 [facility] ([facility])Rehab Team ConferenceREPORT#:[id number] REPORT STATUS: SignedREPORT INITIALIZATION DATE:12/22/23 TIME: 144 PATIENT: JUSTYNA GAMING UNIT #: [id number]#: [id number] [address] [birth year] AGE: 73 SEX: F ATTEND: [...] SHERRI Hopkins OT CM/SHANE Saba NO [facility] Marina Clark, ARMINDA Staff (8) SNEHAL [...] AT HOME ALONE IN AN APARTMENT IN [place]. SHE WOULD LIKE TO MOVE TO [...] Twelve steps discharge goal: Partial/moderate asst (3) [place] 150 feet discharge goal: Independent (6) Goal [...] stay criteriaD/C HOME 12/23 at 1441 RPT #:[id number] OF REPORTCLClinical hzse1350-39-37Z87:40:00G.GQLJ71956467-6446SQNytyxifor for patient pausYPXNIIWTLAJNCH0370-19-08X47:41:29 [facility] 2023-12-22 13:23:00 [id number]+Rdjsp9X1J5j Qc+Vpggf8gGz4DguG YHQZWqkezoZtGHbXCId5988-15-50V87:23:00 [facility] ([facility])Rehab Progress NoteREPORT#:[id number] REPORT STATUS: SignedREPORT INITIALIZATION DATE:12/22/23 TIME: 1322 PATIENT: JUSTYNA GAMING UNIT #: [id number]#: [id number] ROOM/BED: [facility]2DOB: [birth year] AGE: 73 SEX: F ATTEND: [...] muscle mass, normal tone, range of motion normalNeuro/PROMOTIONS SPECIALIST: alert, oriented X 3, CNII-XII intact, no [...] surgical oncologist that she has been seenat [facility] in [place]. She will need to follow with Dr. [...] with interdisciplinary treatment plan. at 1636 RPT #:[id number] OF REPORTPRProgress vcdz1902-41-23B06:23:00G.BXND99004367-9278KNJdmmzfvqo for patient jbelWAZBSXORVDPQAN1580-80-76Q65:37:02 [facility] 2023-12-21 18:35:00 [id number]LyU V/UA7UIQNAqz7xhK3 k0LMM7M1qECvwcZFK6g6196-07-42P72:35:00 [facility] Progress NoteREPORT#:[id number] REPORT STATUS: SignedREPORT INITIALIZATION DATE:12/21/23 TIME: 1834 PATIENT: JUSTYNA GAMING UNIT #: [id number]#: [id number] [address] [birth year] AGE: 73 SEX: F ATTEND: [...] no distressAbdomen: non-tender, soft, no mass/organomegalyExtremities: moves allNeuro/PROMOTIONS SPECIALIST: alert, oriented X 3, no motor deficits, [...] (Auto) (14.0 - 32.0 %) 8.0 L [place] % (Auto) (4.8 - 9.0 %) 4.3 L Eos % (Auto) (0.3 - 3.7 %) 0.0 L Baso % (Auto) (0.0 - 2.0 %) 0.3 Neut # (Auto) (2.0 - 7.6 x10 3/uL) 9.20 H Lymph # (Auto) (1.0 - 3.8 x10 3/uL) 0.87 L [place] # (Auto) (0.1 - 0.8 x10 3/uL) [...] po bid if stable. at 1837 RPT #:[id number] OF REPORTPRProgress vxqk4138-82-79X24:35:00G.PGND33293923-3583SZVacwgjafs for patient gfuiZRORVXDQJDIVFE2060-07-49B07:37:57 [facility] 2023-12-21 13:03:00 [id number]/5/Uz4I8zOSx5RzH9Y9Axdb1ei xDWGIcscRNroKmOF5 stS+eJA+L5mqz+CiNc95325-88-26Q37:03:00 [facility] ([facility])Rehab Progress NoteREPORT#:[id number] REPORT STATUS: SignedREPORT INITIALIZATION DATE:12/21/23 TIME: 1302 PATIENT: JUSTYNA GAMING UNIT #: [id number]#: [id number] [address] [birth year] AGE: 73 SEX: F ATTEND: Fern Mata [facility] AUTHOR: Haylee Hamilton-CREPT SERVICE DT/TIME: 12/21/23 [...] muscle mass, normal tone, range of motion normalNeuro/PROMOTIONS SPECIALIST: alert, oriented X 3, CNII-XII intact, no [...] (Auto) (14.0 - 32.0 %) 8.0 L [place] % (Auto) (4.8 - 9.0 %) 4.3 L Eos % (Auto) (0.3 - 3.7 %) 0.0 L Baso % (Auto) (0.0 - 2.0 %) 0.3 Neut # (Auto) (2.0 - 7.6 x10 3/uL) 9.20 H Lymph # (Auto) (1.0 - 3.8 x10 3/uL) 0.87 L [place] # (Auto) (0.1 - 0.8 x10 3/uL) [...] surgical oncologist that she has been seenat [facility] in [place]. She will need to follow with Dr. [...] with interdisciplinary treatment plan. at 1552 RPT #:[id number] OF REPORTPRProgress wkvz1158-71-99R53:03:00G.PZII59264804-6933ESUdzggmxzp for patient mxotUYNFIESOMINFXE2368-04-84H15:53:07 [facility] 2023-12-20 20:36:00 [id number]NCM9 Cz2yzIc8weF/DSKcR 7wmdW9AgdCuefeoKroq7647-85-08Q00:36:00 [facility] ([facility])Tevin/Oncology Progress NoteREPORT#:[id number] REPORT STATUS: SignedREPORT INITIALIZATION DATE:12/20/23 TIME: 2035 PATIENT: JUSTYNA GAMING UNIT #: [id number]#: [id number] [address] [birth year] AGE: 73 SEX: F ATTEND: [...] no distressAbdomen: non-tender, soft, no mass/organomegalyExtremities: moves allNeuro/PROMOTIONS SPECIALIST: alert, oriented X 3, no motor deficits, [...] - 32.0 %) 7.0 L 12/17 608 [place] % (Auto) (4.8 - 9.0 %) 5.4 12/17 608 Eos % (Auto) (0.3 - 3.7 %) 0.0 L 12/17 608 Baso % (Auto) (0.0 - 2.0 %) 0.2 12/17 608 Neut # (Auto) (2.0 - 7.6 x10 3/uL) 7.98 H 12/17 608 Lymph # (Auto) (1.0 - 3.8 x10 3/uL) 0.65 L 12/17 608 [place] # (Auto) (0.1 - 0.8 x10 3/uL) [...] for spinal epidural mass. at 2039 RPT #:[id number] OF REPORTPRProgress pyje9158-51-54L13:36:00G.JGNY62989108-3408BXLxokzrkqr for patient cxeiVLTCYPYYEOLGRJ1103-69-76I51:39:39 [facility] 2023-12-20 16:05:00 [id number]+qcUQJA+yHe0MmjZYrRkGMYxuyXg JyL/FN1YPEhxNnpy/ 2ZCJetTEAIH4jU6zuUu2733-51-91R51:05:00 [facility] ([facility])Rehab Progress NoteREPORT#:[id number] REPORT STATUS: SignedREPORT INITIALIZATION DATE:12/20/23 TIME: 1605 PATIENT: CONSTANTINO GAMINGN UNIT #: [id number]#: [id number] ROOM/BED: [facility]2DOB: [birth year] AGE: 73 SEX: F ATTEND: Fern Mata MDA AUTHOR: Fern Mata MDREPT SERVICE DT/TIME: 12/20/23 1528* ALL edits or amendments must be made [...] muscle mass, normal tone, range of motion normalNeuro/PROMOTIONS SPECIALIST: alert, oriented X 3, CNII-XII intact, no [...] surgical oncologist that she has been seen[facility] in [place]. She will need to follow with Dr. [...] Agree with interdisciplinary treatment plan. at 1607 [facility] #:[id number] OF REPORTPRProgress qgfa9611-68-93P80:05:00G.FJWU21824963-3381EUVxopcpwgw for patient zvvnNXJWQDJYIXKEWL3839-04-96D97:08:17 [facility] 2023-12-20 15:03:00 [id number]J4VgyEKQ djnKxCV9y9IfcKgwC WaODG+UlsrP3IgLHXGW5098-98-98J65:03:00 [facility] ([facility])Hospitalist Progress NoteREPORT#:[id number] REPORT STATUS: SignedREPORT INITIALIZATION DATE:12/20/23 TIME: 150 PATIENT: JUSTYNA GAMING UNIT #: [id number]#: [id number] ROOM/BED: [facility]2DOB: [birth year] AGE: 73 SEX: F ATTEND: Fern Mata [facility] AUTHOR: Travis Chavez DOREPT SERVICE DT/TIME: [...] bowel sounds, softExtremities: TRACE PRETIBIAL EDEMAMusculoskeletal: decreased ROMNeuro/PROMOTIONS SPECIALIST: alert, oriented X 3Skin: normal colorPsychiatry: normal [...] as needed for systolic blood pressure greater uhwi966 Asthma/pneumonia - DONE WITH ABX History of [...] and adjust medication accordingly at 1505 RPT #:[id number] OF REPORTPRProgress fyso5826-96-03N92:03:00G.ZCOT63298330-0088GRTwmzswero for patient gtrsQUPPMNLCPRWIRL0307-65-96U48:06:09 [facility] 2023-12-19 13:31:00 [id number]JBUBv1uo OJgmemc4wsidGJDNL E86zWijk5CDwAmHNy/J4045-13-52T80:31:00 [facility]Hospital[facility] Progress NoteREPORT#:[id number] REPORT STATUS: SignedREPORT INITIALIZATION DATE:12/19/23 TIME: 1330 PATIENT: JUSTYNA GAMING UNIT #: [id number]#: [id number] [address] [birth year] AGE: 73 SEX: F ATTEND: Fern Mata [facility] AUTHOR: Travis Chavez SERVICE DT/TIME: 12/19/23 [...] bowel sounds, softExtremities: TRACE PRETIBIAL EDEMAMusculoskeletal: decreased ROMNeuro/PROMOTIONS SPECIALIST: alert, oriented X 3Skin: normal colorPsychiatry: normal [...] to 50 mg twice daily. at 1333 [facility] #:[id number] OF REPORTPRProgress ipcx8581-04-40G44:31:00G.YOAZ88087728-6894TXYcaqttbkz for patient ngcjTKAJHIZCCZPIUZ6889-96-10K78:34:10 [facility] 2023-12-18 15:48:00 [id number]+WIs/3sdV5Ddi6Y3EDv0xcV +8azrOj631KWBWPFO YsyGXHIhGjSyIqNPUmr2989-73-30J02:48:00 [facility] HospitalHospitalist Progress NoteREPORT#:[id number] REPORT STATUS: SignedREPORT INITIALIZATION DATE:12/18/23 TIME: 1547 PATIENT: JUSTYNA GAMING UNIT #: [id number]#: [id number] [address] [birth year] AGE: 73 SEX: F ATTEND: Fern Mata [facility] AUTHOR: Travis Chavez DOREPT SERVICE DT/TIME: [...] (Auto) (14.0 - 32.0 %) 7.0 L Haywood % (Auto) (4.8 - 9.0 %) 5.4 Eos % (Auto) (0.3 - 3.7 %) 0.0 L Baso % (Auto) (0.0 - 2.0 %) 0.2 Neut # (Auto) (2.0 - 7.6 x10 3/uL) 7.98 H Lymph # (Auto) (1.0 - 3.8 x10 3/uL) 0.65 L [place] # (Auto) (0.1 - 0.8 x10 3/uL) [...] bowel sounds, softExtremities: TRACE PRETIBIAL EDEMAMusculoskeletal: decreased ROMNeuro/PROMOTIONS SPECIALIST: alert, oriented X 3Skin: normal colorPsychiatry: normal [...] at bedtime for hypertension. at 1549 RPT #:[id number] OF REPORTPRProgress fvtl8712-14-85C16:48:00G.PZHB49022274-6921EESykcbzgnd for patient kpoxBHTDUJGYBGFTJN3284-03-95W24:50:17 [facility] 2023-12-17 22:10:00 [id number]//sfJPRA9x5/Xr4Rq +x81n57D4LNHPTi29 uwAwUqxNzm9ye4t3e6f6623-43-50O83:10:00 [facility] ([facility] Indiv Overall POCREPORT#:[id number] REPORT STATUS: SignedREPORT INITIALIZATION DATE:12/17/23 TIME: 2209 PATIENT: CONSTANTINO GAMINGN UNIT #: [id number]#: [id number] ROOM/BED: [facility]2DOB: [birth year] AGE: 73 SEX: F ATTEND: Fern Mata AUTHOR: Fern Mata MDREPT SERVICE DT/TIME: 12/17/23 0427* ALL edits or amendments must be made [...] Setup/clean-up only (5) object discharge goal: CARE [place] 50 feet Independent (6) with two turns discharge goal: CARE [place] 150 Independent (6) feet discharge goal: CARE [...] Postsurgery req mgt/care, Complex pain management at 7760 RPT #:[id number] OF REPORTCLClinical leea8912-95-63S23:10:00G.LOHJ69530446-2574WZObofyrnkj for patient kihnZGJWNUIMYQFHCA7794-03-08G21:11:08 [facility] 2023-12-17 15:10:00 [id number]+KqFXhtCvA dsiK8qb4D17Hn6zkQ 3c5GK4JK9BLFaBvPcQG1717-36-43H35:10:00 [facility] ([facility])Rehab History PhysicalREPORT#:[id number] REPORT STATUS: SignedREPORT INITIALIZATION DATE:12/17/23 TIME: 1509 PATIENT: JUSTYNA GAMING UNIT #: [id number]#: [id number] [address] [birth year] AGE: 73 SEX: F ATTEND: [...] has been followed (last in ) at [facility] by Dr. Mcqueen (breast surgeon) since then. [...] planning radiation treatment soon as possible. Dr. 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 Additional surgical history:Bilateral Breast lumpectomy for [...] muscle mass, normal tone, range of motion normalNeuro/PROMOTIONS SPECIALIST: alert, oriented X 3, CNII-XII intact, no [...] surgical oncologist that [facility] been [facility] in [place]. She will need to follow with Dr. [...] mgt/care, Complex pain management at 1616 RPT #:[id number] OF REPORTHPHistory and physical smwfgigaudx6049-41-34Q45:10:00G.RWUP34816249-1855ESPmwdjj ble for patient lxdgBADCHJRXFINJOF3261-97-93U58:16:53 [facility] 2023-12-17 12:35:00 [id number]bZ/4 eZ+RmROQS5uqga+VA eYekPA7VlcyZKsSMXwF0704-55-58V23:35:00 [facility] HospitalHospital[facility] Progress NoteREPORT#:[id number] REPORT STATUS: SignedREPORT INITIALIZATION DATE:12/17/23 TIME: 1234 PATIENT: JUSTYNA GAMING UNIT #: [id number]#: [id number] [address] [birth year] AGE: 73 SEX: F ATTEND: Fern Mata [facility] AUTHOR: Travis Chavez SERVICE DT/TIME: 12/17/23 [...] bowel sounds, softExtremities: TRACE PRETIBIAL EDEMAMusculoskeletal: decreased ROMNeuro/PROMOTIONS SPECIALIST: alert, oriented X 3Skin: normal colorPsychiatry: normal [...] hospital for 5 treatments. at 1239 RPT #:[id number] OF REPORTPRProgress zfir3289-34-70N86:35:00G.ZPLD82325490-2878JMMgnffnnqg for patient sxevNMVLHPFQWUABWV7990-98-92S38:40:15 [facility] 2023-12-17 08:57:00 [id number]4jwj baYP199zlEqpc/A3G UdPBmgqhofXTg1G3i2b3541-96-47Q06:57:00 [facility] ([facility])Tevin/Oncology Progress NoteREPORT#:[id number] REPORT STATUS: SignedREPORT INITIALIZATION DATE:12/17/23 TIME: 856 PATIENT: JUSTYNA GAMING UNIT #: [id number]#: [id number] [address] [birth year] AGE: 73 SEX: F ATTEND: Fern Mata [facility] AUTHOR: Leanna Villatoro MDREPT SERVICE DT/TIME: 12/17/23 0857* ALL edits or amendments must be made on the electronic/computer document * SubjectiveChief Complaint:fu met breast cancer and path hip fracture transferred to rehab Objective Physical ExamVS:Vital SignsDate Temp Pulse Resp B/P B/P Mean Pulse Ox JaG546/-12/16 36.6-36.7 56-58 16-18 151-158/68-77 95.7-104.1 94-95 Last [...] no distressAbdomen: non-tender, soft, no mass/organomegalyExtremities: moves allNeuro/PROMOTIONS SPECIALIST: alert, oriented X 3, no motor deficits, [...] hydraionpending ca and path at 0905 RPT #:[id number] OF REPORTPRProgress yiwn7419-25-75Y26:57:00G.IRYY81248933-0370ILNudmsneyp for patient qjhlRSINPEBDLLMXSJ1917-66-34W99:06:22 [facility] 2023-12-16 14:14:00 [id number]BNzr DbnoKLElutVXnHGlU cSphgA6+lwqm09vCczp4920-54-22X11:14:00 [facility] ([facility])Orthopaedic Progress NoteREPORT#:[id number] REPORT STATUS: SignedREPORT INITIALIZATION DATE:12/16/23 TIME: 1413 PATIENT: JUSTYNA GAMING UNIT #: [id number]#: [id number] ROOM/BED: [facility]DOB: [birth year] AGE: 73 SEX: F ATTEND: Rah [...] Sodium Chloride (SODIUM CHLORIDE 0.9%) 1,000 ML .K66S08M IV (DC) Free Text Obj NotesFree Text [...] from PT at 1419 at 2207 RPT #:[id number] OF REPORTPRProgress nqiq2269-50-89M39:14:00G.ORUL87282493-0793RGXenpwzmrk for patient jgkrTVAVPDKNVOXPMA6203-10-28E26:20:11 [facility] 2023-12-16 13:53:00 [id number]+PKBaK FkaV0XzkZ4g1wFHHa Ur1ZqR+ej24bqAFevzQ2657-50-64W74:53:00 [facility]Re[facility] Preadmission ScreenREPORT#: REPORT STATUS:DATE:12/16/23 TIME: 135 PATIENT: JUSTYNA GAMING UNIT #: ROOM: BED:: 49 AGE: 73 SEX: F ATTEND: Fern Mata MDPROJECTED ADM AUTHOR: Fern Mata MDREP SRV REP SRV TM: 1353* ALL edits or amendments must be made on the electronic/computer document * IRF Preadmission Screen Information From [facility] [[email or web address]] PASS PAS documentation:The data set between the solid lines has been imported from [facility] [[email or web address]] PAS documentation. 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 and bjN94-D70 12/13 CT RT LOWER EXTR: Extensive lytic [...] base not visible Wound surrounding tissue appearance: [place] Wound surrounding tissue temperature: Warm Wound closure: [...] KATIUSKA GAMINGRelationship to patient: ALEXzoiemarcus number 1: [id number] number 2: Caregiver availability: 24 hours a [...] in acute inpatient rehab: Rehab nursing 12/04, manager quality,Occupational therapy, Physical therapy, Dietitian, [facility] reviewed prior to admission decision: [...] assessment documentation and consultation with the preadmission urologic nurse, I have determined, prior to admitting this [...] mgt/care, Complex pain management at 1355 RPT #:[id number] OF REPORTCLClinical kzkn6896-16-24K18:53:00G.IXGH94043340-9027WXJkrbvgxgh for patient liquYUJDLCMKGRQHMI9823-20-41C67:55:44 [facility] 2023-12-16 11:36:00 [id number]/L+Hqq/egqhhCuu4x+pEiYLWxvpT ZWIGvpgWGFx8mvHtC Y9O5cRuCVCQ0iG8Sxdy7019-24-09S39:36:00 [facility] ([facility])Hospitalist Discharge SummaryREPORT#:[id number] REPORT STATUS: SignedREPORT INITIALIZATION DATE:12/16/23 TIME: 1135 PATIENT: JUSTYNA GAMING UNIT #: [id number]#: [id number] [facility]DOB: [birth year] AGE: 73 SEX: F ATTEND: Rah [...] bowel sounds, softExtremities: TRACE PRETIBIAL EDEMAMusculoskeletal: decreased ROMNeuro/PROMOTIONS SPECIALIST: alert, oriented X 3Skin: normal colorPsychiatry: normal [...] (Auto) (14.0 - 32.0 %) 5.9 L Haywood % (Auto) (4.8 - 9.0 %) 7.0 Eos % (Auto) (0.3 - 3.7 %) 0.0 L Baso % (Auto) (0.0 - 2.0 %) 0.1 Neut # (Auto) (2.0 - 7.6 x10 3/uL) 9.46 H Lymph # (Auto) (1.0 - 3.8 x10 3/uL) 0.65 L Haywood # (Auto) (0.1 - 0.8 x10 3/uL) [...] with: patient, HER NURSE at 1142 RPT #:[id number] OF REPORTDSDischarge gmnlvep1474-48-04V58:36:00G.GODN69617600-7542MMOwpautteu for patient vnkjHAQPVKUUNMVHMQ0633-53-44T70:42:43 [facility] 2023-12-16 10:11:00 [id number]+kP/az0tgUeva5iIMaqTCxaxOz HFBjiE9UKyUHB9GAp MnPsPu0go+9GPIOTobP1816-79-27E64:11:00 [facility] ([facility])Hospitalist Progress NoteREPORT#:[id number] REPORT STATUS: SignedREPORT INITIALIZATION DATE:12/16/23 TIME: 101 PATIENT: JUSTYNA GAMING UNIT #: [id number]#: [id number] [address] [birth year] AGE: 73 SEX: F ATTEND: [...] stenosis and breast cancer. [facility] on account of inability to walk [...] Sodium Chloride (SODIUM CHLORIDE) 10 MLMiscellaneous Information ([facility] TO DOSE) 1 EACH ASDIR SUBQ (CKD) Sodium Chloride (SODIUM CHLORIDE 0.9%) 1,000 ML .Z42C43E IV (DC) Diphenhydramine HCl (BENADRYL) 12.5 MG [...] Sodium Chloride (SODIUM CHLORIDE 0.9%) 1,000 ML .U55N68T IV Physical ExamGeneral appearance: chronically ill appearing, obese, alert, awakeHead/Eyes: WEARING EYEGLASSESNeck: no JVDCardiovascular: regular rate rhythmRespiratory: aerating well, clear to auscultation, symmetric expansionAbdomen: obese, non-tender, normal bowel sounds, softExtremities: TRACE PRETIBIAL EDEMAMusculoskeletal: decreased ROMNeuro/PROMOTIONS SPECIALIST: alert, oriented X 3Skin: normal colorPsychiatry: normal [...] (Auto) (14.0 - 32.0 %) 5.9 L Haywood % (Auto) (4.8 - 9.0 %) 7.0 Eos % (Auto) (0.3 - 3.7 %) 0.0 L Baso % (Auto) (0.0 - 2.0 %) 0.1 Neut # (Auto) (2.0 - 7.6 x10 3/uL) 9.46 H Lymph # (Auto) (1.0 - 3.8 x10 3/uL) 0.65 L Haywood # (Auto) (0.1 - 0.8 x10 3/uL) [...] the hospital for 5 treatments. at 1016 [facility] #:[id number] OF REPORTPRProgress awwl5819-79-27V45:11:00G.VAWZ25373913-0560IYAotmyjeax for patient esmhPGNNADFUQKCEEX2622-93-33Y49:17:42 [facility] 2023-12-15 22:49:00 [id number]uLbMNH 24POTil5YZeTExNit sVSWoXo/0pQIbMrCkyt4581-65-36V36:49:00 [facility])Tevin/Oncology Progress NoteREPORT#:[id number] REPORT STATUS: SignedREPORT INITIALIZATION DATE:12/15/23 TIME: 2248 PATIENT: JUSTYNA GAMING UNIT #: [id number]#: [id number] [address] [birth year] AGE: 73 SEX: F ATTEND: [...] rate and rhythm, normal heart sounds, normal S1/K0Ougwddkowaz: aerating well, symmetric expansion, no distressAbdomen: non-tender, softExtremities: post right hip surgeryNeuro/PROMOTIONS SPECIALIST: alert, normal speech, no motor deficits Current MedicationsMedications:Active Meds + DC'd Last 24 HrsEnoxaparin Sodium (lovENOX) 30 MG Q12HR SUBQ Cefazolin Sodium (KEFZOL OR ANCEF) 1 GM Q8H IV Sodium Chloride (SODIUM CHLORIDE) 10 MLMiscellaneous Information ([facility] TO DOSE) 1 EACH ASDIR SUBQ (CKD) Sodium Chloride (SODIUM CHLORIDE 0.9%) 1,000 ML .R50L89M IV (DC) Phenylephrine HCl (Phenylephrine PF 500 [...] 20 ML .STK-MED ONE IV (DC) Rocuronium [place] (ZEMURON) 0 .STK-MED ONE IV (DC) Propofol [...] Sodium Chloride (SODIUM CHLORIDE 0.9%) 1,000 ML .R92T94I IV ResultsFindings/Data:Laboratory Tests 12/15/23 0500:[Embedded Image Not [...] (Auto) (14.0 - 32.0 %) 9.6 L [place]wood % (Auto) (4.8 - 9.0 %) 1.8 L Eos % (Auto) (0.3 - 3.7 %) 0.0 L Baso % (Auto) (0.0 - 2.0 %) 0.3 Neut # (Auto) (2.0 - 7.6 x10 3/uL) 6.64 Lymph # (Auto) (1.0 - 3.8 x10 3/uL) 0.73 L [place] # (Auto) (0.1 - 0.8 x10 3/uL) [...] Procedure - Status Source Growth 12/14 528 [facility] Surveillance Screen - COMP NASAL Radiology data:Recent [...] tumor profiling.I will obtain and review her [facility] records for initial cancer history.start dex 4mg [...] lovenox 30mg q 12. at 2256 RPT #:[id number] OF REPORTPRProgress vcqu9503-90-55D11:49:00G.SBPB75913398-6055XNSmjzwicee for patient hkykCJCQUFXYANAUBQ2294-26-84U76:54:37 [facility] 2023-12-15 14:21:00 L67687508539rU6HRfvh+Gc14W8ARC2dkR81VFl/ 1rATnQqSjkKP709SX /8kGHZscqiNPFLnrl3u2010-86-27X97:21:00 [facility]Hospital[facility] Progress NoteREPORT#:[id number] REPORT STATUS: SignedREPORT INITIALIZATION DATE:12/15/23 TIME: 1420 PATIENT: JUSTYNA GAMING UNIT #: [id number]#: [id number] [address] [birth year] AGE: 73 SEX: F ATTEND: Mirna Delcid DOADM AUTHOR: Yoseph Floyd MDREPT SERVICE DT/TIME: 12/15/231420* ALL edits or amendments must be made on the electronic/computer document * SubjectiveChief complaint:Right hip painHPI:Patient is a 73 years old lady with past medical history of hypertension, hypothyroidism, asthma, spinal stenosis and breast cancer. [facility] on [facility] of [facility] to [...] sounds, softExtremities: no clubbing, no cyanosis, no edemaNeuro/PROMOTIONS SPECIALIST: alert, oriented X 3 ResultsRadiology data:Laboratory Tests [...] CKDInformation SUBQ 12/21 1014Sodium Chloride 1,000 ML .L48F62J 12/14 1015 DC IV 03/14 1014Phenylephrine HCl [...] ML .STK-MED ONE 12/14 0702 DC IVRocuronium [place] 0 .STK-MED ONE 12/14 07 DC IVPropofol [...] AC PO 03/13 0229Sodium Chloride 1,000 ML .A95V45U 12/13 0230 AC 12/13 IV 03/13 0229 [...] (Auto) (14.0 - 32.0 %) 9.6 L [place] % (Auto) (4.8 - 9.0 %) 1.8 L Eos % (Auto) (0.3 - 3.7 %) 0.0 L Baso % (Auto) (0.0 - 2.0 %) 0.3 Neut # (Auto) (2.0 - 7.6 x10 3/uL) 6.64 Lymph # (Auto) (1.0 - 3.8 x10 3/uL) 0.73 L [place] # (Auto) (0.1 - 0.8 x10 3/uL) [...] hospital for 5 treatments. at 1423 RPT #:[id number] OF REPORTPRProgress oxva2787-42-66Q53:21:00G.DYBO35930428-8627SGFyzitskhq for patient xpbzHCSTFKQMAIBNDB0189-67-60V67:23:51 [facility] 2023-12-15 11:25:00 [id number]+KFcKBSGG1 URQ/jBB9RyFlF/lFT suWOUmC6AGow6vdcmhh8973-70-52S42:25:00 [facility] ([facility])Operative Note - FullREPORT#:[id number] REPORT STATUS: SignedREPORT INITIALIZATION DATE:12/15/23 TIME: 1125 PATIENT: JUSTYNA GAMING UNIT #: [id number]#: [id number] [facility]OM[facility]ED[facility] [place]DOB: [birth year] AGE: 73 SEX: F ATTEND: Mirna Delcid DOADM AUTHOR: Alirio Hurtado MDREPT SERVICE DT/TIME: 12/15/23 1125* ALL edits or amendments must be made on the electronic/computer document * Operative ReportORM Surgeries: Surgery Date and Time: 12/15/2023 0700 Proposed Primary Procedure: RIGHT HEMIARTHROPLASTY HIP Start date: 12/15/23Start time: 744Pre-procedure diagnosis:right pathologic femoral neck fracture S72.449YI23.451Post-procedure diagnosis:right pathologic femoral neck fracture S72.436ST34.451Procedures performed:Right hip hemiarthroplasty 75117Vosnpxvbo/Procedure:See free textPrimary Surgeon: Alirio Armendarizistant(s): Raghavendra JiangAnesthesia: general anesthesiaIndications:see free textOperative findings:Pathologic right femoral neck fractureComplications: noneEstimated blood loss in ml's: 300ccsSpecimens removed/altered: femoral head and neck sent to pathologyImplant(s): Alvord Accolade C Size 3 stem, bipolar 47mm [...] from PT Alirio Hurtado MD at 1131 [facility] #:[id number] OF REPORTOPOperative hnywae0390-78-81L85:25:00G.FNOT28501137-2540IKTlfqbsazf for patient kkzfQIRDCGNGGMDSRM6421-89-48N84:31:39 [facility] 2023-12-15 11:08:00 [id number]5SlLmdtSWFa zRTBjAjJ3iTudX2fx tn350QDaBhM34Qp0h452949-47-21J90:08:00 [facility] ([facility])Clinical NoteREPORT#:[id number] REPORT STATUS: SignedREPORT INITIALIZATION DATE:12/15/23 TIME: 1107 PATIENT: JUSTYNA GAMING UNIT #: [id number]#: [id number] [address] [birth year] AGE: 73 SEX: F ATTEND: [...] now, please call prn. at 1111 RPT #:[id number] OF REPORTCLClinical ieqa1281-28-48M26:08:00G.EXPD19470937-2948ATBkomwsenk for patient phslZCUCGZIGNKEBBG6870-61-55Z72:12:02 [facility] 2023-12-15 10:15:00 [id number]+AeE74wfHas3N8h 9Azhe2hg1MUCrZS/9 a5Qpf6zFaGp/dZzTz6b8196-79-36E20:15:00 [facility] ([facility])Orthopaedic Consult NoteREPORT#:[id number] REPORT STATUS: SignedREPORT INITIALIZATION DATE:12/15/23 TIME: 1015 PATIENT: JUSTYNA GAMING UNIT #: [id number]#: [id number] [address] [birth year] AGE: 73 SEX: F ATTEND: [...] disease, Periph arterial disease, Pressure ulcer, Prior [place], Schizophrenia, Sickle cell disease, Steroid use, Transfusion [...] surgery, Nephrectomy, PCI, Prostate surgery, Thyroidectomy, Tracheotomy, SOUS CHEF KITCHEN MANAGER shunt. Additional surgical history:Bilateral Breast lumpectomy for [...] ONE 12/14 0820 DC (GLYCOPYRROLATE) .ROUTE Rocuronium [place] 0 .STK-MED ONE 12/14 0702 DC (ZEMURON) [...] Time Status Admin Sodium Chloride 1,000 ML .E20U37I 12/14 1015 DC (SODIUM CHLORIDE IV 03/14 [...] IV 12/14 2359 Sodium Chloride 1,000 ML .E14G28N 12/13 0230 AC 12/13 (SODIUM CHLORIDE IV [...] Sodium Chloride (SODIUM CHLORIDE) 10 MLMiscellaneous Information ([facility]) 1 EACH ASDIR SUBQ (PEND) Sodium Chloride (SODIUM CHLORIDE 0.9%) 1,000 ML .R91V92A IV (DC) Phenylephrine HCl (Phenylephrine PF 500 [...] 20 ML .STK-MED ONE IV (DC) Rocuronium [place] (ZEMURON) 0 .STK-MED ONE IV (DC) Propofol [...] Sodium Chloride (SODIUM CHLORIDE 0.9%) 1,000 ML .W79H07A IV Physical ExamGeneral appearance: alert, awake, orientedFoot-left: neurovascular intact, non-tender, normal inspection, palpable pulsesFoot-right: neurovascular intact, non-tender, normal inspection, palpable pulsesHip/thigh-right: pain with ROM, tenderness, neurovascular intactHEENT: atraumatic, normocephalicNeck: full range of motion, non-tenderCardiovascular: pedal pulses present, regular rate rhythmRespiratory: no distressAbdomen: non-tender, softNeuro/PROMOTIONS SPECIALIST: alert, oriented X 3, normal speechSkin: dry, [...] (Auto) (14.0 - 32.0 %) 9.6 L [place] % (Auto) (4.8 - 9.0 %) 1.8 L Eos % (Auto) (0.3 - 3.7 %) 0.0 L Baso % (Auto) (0.0 - 2.0 %) 0.3 Neut # (Auto) (2.0 - 7.6 x10 3/uL) 6.64 Lymph # (Auto) (1.0 - 3.8 x10 3/uL) 0.73 L [place] # (Auto) (0.1 - 0.8 x10 3/uL) [...] right hip hemiarthroplasty. NPO. at 1124 RPT #:[id number] OF REPORTXIIhmeyareybna0066-86-95K67:15:00G.DMIO08202967- 0528AVAvailable for patient sjnnTLZVVVDABYQVYS1815-60-57H75:24:56 [facility] 2023-12-14 17:05:00 [id number]+H5ZYUS+7QWPsQ WBCN1ypOa27qt0Gtq qcX3jlwAf8f9QcRRqTt1441-37-97N82:05:00 [facility] HospitalNeurosurgical ConsultationREPORT#:[id number] REPORT STATUS: SignedREPORT INITIALIZATION DATE:12/14/23 TIME: 1704 PATIENT: JUSTYNA GAMING UNIT #: [id number]#: [id number] ROOM[facility]BED: [facility]DOB: [birth year] AGE: 73 SEX: F ATTEND: Mirna [...] has been followed (last in ) at [facility] by Dr. Mcqueen (breast surgeon) since then. [...] disease, Periph arterial disease, Pressure ulcer, Prior [place], Schizophrenia, Sickle cell disease, Steroid use, Transfusion [...] surgery, Nephrectomy, PCI, Prostate surgery, Thyroidectomy, Tracheotomy, SOUS CHEF KITCHEN MANAGER shunt. Additional surgical history:Bilateral Breast lumpectomy for [...] status normal, appear well nourished and not cachecticNeuro/PROMOTIONS SPECIALIST: alert, oriented X 3, CN II-XII intact, [...] today, as per my discussion with the cytotechnologist. If she gets her hip fracture addressed surgically by [place] (Dr. Hurtado), it is imperative that adequate spinal precautions are being taken during positioning in the OR for her hip surgery. at 1733 [facility] #:[id number] OF REPORTVSPjsgckkbpobv0460-31-73J16:05:00G.HKZN87874736- 1436AVAvailable for patient aikxRRTHVDQMQWDEHM6619-90-88D30:33:53 [facility] 2023-12-14 16:36:00 [id number]qTGh yftKjQm9DDkrIWVTx x8Bk7iMSM63oOAWgtIw6274-02-21B94:36:947968-[address] [address] PATIENT NAME: JUSTYNA GAMING ADMIT DATE: 12/13/23ACCOUNT NO: [id number] ROOM NO: [facility] AGE: 73 REPORT TYPE: eELECTROCARDIOGRAM REPORT SEX: F ADMITTING PHYSICIAN:Marques Lim MD ATTENDING PHYSICIAN:Mirna Delcid DO Order:[id number] Reason : PRE OP PROTOCOL Test Date/Time [...] MD at 1835 PATIENT NAME: JUSTYNA GAMING .[id number] ble for patient ermtCYDGVGULCVKMSZ5601-87-36N82:36:09 [facility] 2023-12-14 16:27:00 [id number]HOrMk fbzyCuxUk1FFYMIp2 utJao1ERuk358ppRGg39680-06-14V39:27:00 [facility])Tevin/Oncology Consult NoteREPORT#:[id number] REPORT STATUS: SignedREPORT INITIALIZATION DATE:12/14/23 TIME: 1627 PATIENT: JUSTYNA GAMING UNIT #: [id number]#: [id number] [address] [birth year] AGE: 73 SEX: F ATTEND: Mirna Delcid DOADM AUTHOR: Leanna Villatoro MDREPT SERVICE DT/TIME: 12/14/23 4346* ALL edits or amendments must be made [...] was under care of DR Mcqueen at [facility]. she has not been on endocrine therapy [...] IV 12/14 2359 Sodium Chloride 1,000 ML .U54C72E 12/13 0230 AC 12/13 (SODIUM CHLORIDE IV [...] (Auto) (14.0 - 32.0 %) 10.1 L [place] % (Auto) (4.8 - 9.0 %) 5.8 Eos % (Auto) (0.3 - 3.7 %) 0.3 Baso % (Auto) (0.0 - 2.0 %) 0.3 Neut # (Auto) (2.0 - 7.6 x10 3/uL) 4.98 Lymph # (Auto) (1.0 - 3.8 x10 3/uL) 0.61 L [place] # (Auto) (0.1 - 0.8 x10 3/uL) [...] tumor profiling.I will obtaina nd review her [facility] records for initial cancer history.start dex 4mg [...] x 1 monitor calcium. at 1640 RPT #:[id number] OF REPORTFZQasohfxktkft6585-36-66Q29:27:00G.EJHO68801874- 1359AVAvailable for patient nyuxLXPNVXHKZDMWQB4968-24-69V15:39:13 [facility] 2023-12-14 15:57:00 [id number]//ZmwhoH7 VHGtgKqyljpv0mP16 odxwzsPlonjoQ3rogBN9737-06-22C34:57:00 [facility] ([facility])Clinical NoteREPORT#:[id number] REPORT STATUS: SignedREPORT INITIALIZATION DATE:12/14/23 TIME: 1556 PATIENT: JUSTYNA GAMING UNIT #: [id number]#: [id number] [address] [birth year] AGE: 73 SEX: F ATTEND: [...] Blood pressure medication added. at 1604 RPT #:[id number] OF REPORTCLClinical adrz8692-19-00M27:57:00G.OIJA00836166-7900CFZdederock for patient pncjSRMNSWSOWZTFXY1630-53-02O93:06:44 [facility] 2023-12-14 02:24:00 [id number]r2+q M40NeZB9EWBRklyl+ UB81CVl8Q5+JA+YNFYF0449-45-57Q54:24:00 [facility] HospitalHospitalist History PhysicalREPORT#:[id number] REPORT STATUS: SignedREPORT INITIALIZATION DATE:12/14/23 TIME: 223 PATIENT: JUSTYNA GAMING UNIT #: [id number]#: [id number] [address] [birth year] AGE: 73 SEX: F ATTEND: Marques Lim MDADM AUTHOR: Marques Lim MDREPT SERVICE DT/TIME: 12/14/23223* ALL edits or amendments must be made on the electronic/computer document * History of Present Illness HPIChief complaint:Right hip painHPI:Patient is a 73 years old lady with past medical history of hypertension, hypothyroidism, asthma, spinal stenosis and breast cancer. [facility] to [facility] [...] Sodium Chloride (SODIUM CHLORIDE 0.9%) 1,000 ML .K97W53V IV Iopamidol (ISOVUE-300 100ML) 150 ML .STK-MED [...] (Auto) (14.0 - 32.0 %) 10.1 L [place] % (Auto) (4.8 - 9.0 %) 5.8 Eos % (Auto) (0.3 - 3.7 %) 0.3 Baso % (Auto) (0.0 - 2.0 %) 0.3 Neut # (Auto) (2.0 - 7.6 x10 3/uL) 4.98 Lymph # (Auto) (1.0 - 3.8 x10 3/uL) 0.61 L [place] # (Auto) (0.1 - 0.8 x10 3/uL) [...] courseCODE STATUS: full code. at 0621 RPT #:[id number] OF REPORTHPHistory and physical yylrvncnssk4283-63-85V73:24:00G.RXOG97273376-3477CWCyjkci ble for patient ajtaENWYPYLECIURKE8950-27-66F77:21:56 [facility] 2023-12-13 21:43:00 [id number]jRa3 OyESrCuzVODXvGqHw +w5ZkFsBUM7nuRH+rq97996-87-13G40:43:00 [facility] ([facility])EMERGENCY PROVIDER REPORTREPORT#:[id number] REPORT STATUS: SignedDATE:12/13/23 TIME: 2142 PATIENT: JUSTYNA GAMING UNIT #: [id number]#: [id number] ROOM/BED: [place] [address]AGE: 73 SEX: F PCP PHYS: No Primary or Family PhysicianSERVICE AUTHOR: Randee Joe MD * ALL edits or amendments must be made on the electronic/computer document * HPI-Extremity Prob Lower GeneralInitial Greet Date/Time 12/13/232057 PresentationChief Complaint Hip problem R, Thigh problem R Free Text HPI NotesFree Text HPI Dxojl08-rmxa-ujx female with a history of hypertension, hypothyroidism, [...] bilateral Free Text MDM NotesFree Text MDM Gopbr79-ussq-zlj female with a history of hypertension, hypothyroidism, [...] Call Information will see patient at 0133RPT #:[id number] OF REPORTEDEmerpinnacle pointe [facility] department wzjwjk3548-20-98M92:43:00G.XGGT17483614-2174SVZgifkhkmu for patient ppglMBNDWPVUEJBKTI1445-78-39V72:33:38 [facility] L
[2024-01-16] MEDS: dexAMETHasone 4 MG TAB PO SCH (13:15)
[2024-01-16 13:39] VITALS: BMI 31.8
[2024-01-16] MEDS ORDERED: carvediloL 6.25 MG TAB PO SCH (17:00)
[2024-01-16] MEDS ORDERED: LOSARTAN POTASSIUM 50 MG TABLET PO SCH (20:00)
[2024-01-16] MEDS ORDERED: ENOXAPARIN 30 MG/0.3 ML SQ SCH (20:00)
[2024-01-16] MEDS: APIXABAN 2.5 MG TABLET PO SCH (20:57)
[2024-01-16] MEDS ORDERED: AMLODIPINE 10 MG TAB PO SCH (21:00)
[2024-01-16 23:39] LABS: Specific Gravity 1.019 (1.005-1.030); Sqamous Epithelial <5 /HPF (None Seen); Urine Bacteria 20-50 /HPF (<20); Urine Bilirubin NEGATIVE (Negative); Urine Blood 3+ (Negative); Urine Clarity Extremely Turbid (Clear); Urine Color Yellow (Yellow); Urine Culture Reflex Order REFLEXED; Urine Glucose NEGATIVE (Negative); Urine Ketones NEGATIVE (Negative); Urine Micro Reflex YN NO BILL MICROSCOPIC; Urine Mucus Slight /HPF (None Seen); Urine Nitrite NEGATIVE (Negative); Urine Protein TRACE (Negative); Urine Urobilinogen Normal (Normal); Urine WBC 20-50 /HPF (<5); Urine WBC Clump Rare /HPF (None Seen); Urine Yeast (Budding) Occasional /HPF (None Seen); Urine Yeast with Hyphae Trace /HPF (None Seen); Urine pH 5.5 (5.0-7.0)
[2024-01-17 07:44] LABS: Albumin 1.8 g/dL (3.4-5.0); Anion Gap 5.2 mEq/L (5.0-15.0); Prealbumin 13.8 mg/dL (20-40)
[2024-01-17 07:45] LABS: Potassium 4.2 mEq/L (3.5-5.1)
[2024-01-17] MEDS ORDERED: LETROZOLE 2.5 MG TAB PO SCH (08:00)
[2024-01-17] MEDS: CRANBERRY FRUIT EXTRACT 200 MG CAP PO SCH ×2 (08:00→11:15)
[2024-01-17] MEDS ORDERED: hydroCHLOROthiazide 25 MG TAB PO SCH (08:00)
[2024-01-17] MEDS ORDERED: AMLODIPINE 10 MG TAB PO SCH (08:00)
[2024-01-17 09:39] LABS: Absolute Lymphocytes (CBC) 0.4 K/uL (0.7-4.9); Absolute Monocytes 0.1 K/uL (0.1-1.3); Basophils % 0.9 % (0-1.3); Hematocrit 27.7 % (36.0-45.0); Hemoglobin 9.3 g/dL (12.0-15.0); Lymphocytes % 14.5 % (15.3-44.8); MCH 30.2 pg (27.0-35.0); MCHC 33.7 g/dL (32.0-36.0); MCV 89.7 fL (80-100); MPV 9.2 fL (7.6-11.3); Monocytes % 4.8 % (3.3-12.3); Neutrophils % 78.8 % (41.7-73.7); Nucleated Red Blood Cells % 0.4 % (0-0); Platelets 49 thou/uL (152-406); RBC Red Blood Cell Count 3.08 M/uL (3.86-4.86); Red Cell Distribution Width 15.7 % (12.1-15.2)
[2024-01-17] MEDS ORDERED: MELATONIN 3 MG TABLET PO PRN (09:43)
[2024-01-17] MEDS ORDERED: ACETAMINOPHEN 500 MG TAB PO PRN (09:44)
[2024-01-17 10:45] LABS: Blood Morphology Comment NOT SEEN (NOT SEEN); Platelet Estimate DECR; White Blood Cell Scan OK (OK)
[2024-01-17] MEDS: APIXABAN 2.5 MG TABLET PO SCH (11:16)
[2024-01-17] MEDS: ENSURE MAX PROTEIN 330 ML LIQUID PO SCH (15:00)
--- NOTE | 2024-01-17 20:50 | HP ---
Date of Admission: 01/16/2024 Time Of Service: 9 a.m. Chief Complaint: "I have stomach surgery and here for therapy." History Of Present Illness: Ms. Gaming is a 73-year-old patient with hypertension, bradycardia, hyp othyroidism, breast cancer with mets to the bone and stage IV including in addition to bones, kidneys , and liver, who is awaiting radiation and chemo. She came to [facility] on 01/11 with severe lower abdominal pain that began 3 days prior to coming to the hospital. She had taken magnesium citrate 2 hours prior to the emergency department and had not had a bowel movement in over [address] scan rev ealed pneumoperitoneum with perforated gastric ulcer and General Surgery was consulted, Dr. Winn. She was immediately taken to surgery and had a Ted patch placed during exploratory laparotomy. S he was admitted to the ICU following surgery, had NG tube placed, and GERALDO drain in position. She did receive parenteral nutrition on 12/21 and Zosyn to cover antibiotic need. Course of hospitalization was complicated by thrombocytopenia, sinus bradycardia, and Cardiology was involved. Echocardiogram showed ejection fraction 60% with normal wall motion and Cardiology recommended avoiding AV marco antonio blo cking agents, continuing Norvasc and losartan for hypertension. She was given gentle IV fluids for a cute renal insufficiency. Her chemotherapy and radiation are to begin by a physician in [place] and he will be contacted to determine the next course of treatment as she is now ready for inpatient reha bilitation to get stronger and to have chemo done. In terms of her diet, she is on bite size diet an d being advanced as tolerated. She recently had a right total hip arthroplasty that requires a rolli ng walker for ambulation, but she was independent at home prior to her bowel issues. She has her son with her, who is here to assist after surgery. However, the plan is for her to go back and live [place] ne. At this point, she requires moderate assistance for bed mobilization, [id number] and transfers . She ambulated 160 feet on the with minimum assistance, but she did fall according to the nurs ing staff and very apprehensive to ambulate when she tried on January 13. She is motivated to become s tronger and go back home, and as noted, she is supposed to start radiation therapy for her cancer as soon as possible. However, due to her having a broken hip, the radiation was pushed back as it is jordan garcia to interrupt healing. She is now in the inpatient unit for physical and occupational therapy. Past Medical History: Hypertension, hypothyroidism, breast cancer with mets to kidney, liver, and berna ne, stage IV. She has right bipolar hip arthroplasty, bilateral breast lumpectomy, and hysterectomy. Allergies: ASPIRIN, BANANA, MELON, SHELLFISH. Current Medications: She is taking Eliquis 2.5 mg twice daily, melatonin 3 at bedtime, extra-strengt h Tylenol 500 mg every 4 hours as needed, hydrochlorothiazide 12.5 mg daily, dexamethasone 6 mg 3 josé es daily, Cozaar 50 mg twice daily, Femara 2.5 mg daily, Coreg 6.25 mg twice daily, Norvasc 10 mg at bedtime. Family History: Noncontributory. Social History: No alcohol, tobacco, or drug use. Laboratory Studies: White blood cell count is down to 2.5, hemoglobin 9.3. Platelets are low at 49 as she has a thrombocytopenia. Sodium low at 134, potassium 4.2, chloride 110, carbon dioxide 23, BU N 24, creatinine 0.64, glucose 94, calcium 7.9, magnesium 2.0, albumin 1.9, prealbumin 13.8. Urinaly sis; extreme turbidity, 3+ blood, 500 esterase, 11-20 red blood cells, white blood cells 20-50, bacte marcell 20-50, trace hyphae and yeast, occasional budding yeast, and trace total protein. X-ray/imaging: She has a CT of abdomen and pelvis with contrast on 01/08, showing pneumoperitoneum c onsistent with perforation of a hollow viscus. Though the source is not entirely certain, some gas i s localized to the region of the proximal sigmoid, which could be the source. Also, there is widespr ead osseous metastatic disease with likely breast cancer. Small solid-appearing right renal mass con cerning for renal cell carcinoma present. Nonemergent urological referral is suggested. There is an indeterminate liver lesion noted. Further assessment with MRI was recommended. On 01/08/2023, an E KG shows marked sinus bradycardia, left axis deviation, left ventricular hypertrophy with repolarizat ion abnormality. KUB on 01/08 shows NG tube tip in the stomach in satisfactory position. Right IJ a pproach central line overlying the distal right innominate vein and proximal superior vena cava. The re is no pneumothorax. Echo from 01/09/2024 showed normal left ventricular systolic function. Eject ion fraction 55%. Normal wall motion. Current Level Of Functioning: Supervision for eating, oral hygiene. Moderate assistance for toilet hygiene. Maximal assistance for showering. Moderate assist for upper body dressing. Maximal assist for lower body dressing. Moderate assistance for donning and doffing footwear, rolling left to righ t, and sit to stand and lying to sitting in a sliding board, all moderate assistance. Transfers from bed to chair to wheelchair to shower, moderate assistance. Ambulation, moderate assistance, covered 2 feet with a rolling walker. Physical Examination: Vital Signs: Blood pressure 118/50, pulse 54, respiratory rate 18, temperature 97.4, oxygen saturati on 96%. General: Ms. Gaming is lying in the bed, getting ready for therapy sessions. HEENT: She is normocephalic, atraumatic. Sclerae are anicteric. Oropharynx is pink and moist. Neck: Supple. Chest: Clear. Heart: Regular. Extremities: No significant edema, cyanosis, or clubbing. Neurological: Alert and oriented to person, place, situation, time. In terms of strength; in upper extremities, at least 4/5. Lower extremity on the left 5/5, on the right 4/5 proximally and distally . Sensation mild stocking glove loss to light touch, temperature. Reflexes symmetric. Coordination intact and she will be ambulated with the therapist. Rehabilitation And Medial Assessment And Plan: Ms. Gaming is admitted to the inpatient rehabilitati on unit with impairment category 20 miscellaneous. Her impairment group code is 16, debility, noncar diac, nonpulmonary. Etiologic diagnosis, perforated gastric ulcer. Comorbidities are renal insuffic iency, bradycardia, decreased mobility, decreased physical function, diabetes mellitus, multiple fall s, hypertension, hypocalcemia, hypotension, hypothyroidism, thrombocytopenia, anemia, stage IV metast atic breast cancer to the liver, kidney, bones. Plan: 1.She will have physical and occupational therapy for 3 hours a day, 5 of 7 days. 2.She will continue Eliquis for DVT prophylaxis, melatonin for insomnia, Tylenol for pain, Norvasc f or hypertension, Coreg as well for hypertension. We will have hydrochlorothiazide for fluid manageme nt and may replace potassium and sodium as appropriate. Comorbidities That Are Impacting Rehabilitation: Currently, she has stage IV breast cancer and is sl ated to start chemotherapy and radiation. The radiation oncologist in [place] will be contacted to joana vuong if a delay is required as she had surgery on the and today is the and that may ret viraj healing, but stage IV cancer does mean aggressive treatment is required, so he will be contacted for recommendation and means of administering the chemotherapy which if possible, we will get started . Rehab Specific Plan: Ms. Gaming will have physical and occupational therapy for 3 hours a day, 5 of 7 days to improve her ability to transfer from bed to shower chair to toilet and to be able to dress upper and lower body, to ambulate 250 feet with modified independence, up and down 10 steps with mod ified independence, and propel a wheelchair 250 feet with modified independence. Ms. Gaming has a good understanding of the process of admission to the inpatient [facility] and how she will benefit from physical and occupational therapy. If need be, additional service s from the orthopedic service, infectious disease service, the renal service and hospitalist service will be contacted. She will have [facility] 24 hours day, a 7 days a week, physician evaluation and management on a daily basis. Business Analysis Specialist are planning for discharging home equipment and co ntinuing therapy. Given her complex medical condition and risk of further complications, rehabilitat ion cannot be safely or affectively performed at a lower level facility such as [facility]. Barriers To Discharge: At this point given the stage IV cancer, she may pose a challenge if there ar e broken bones, if she has metastatic cancer to the bone, so precautions at all times in terms of the risk of falling and broken bones, which will be high. She is also at risk of clots given the hyperc oagulable state of her cancer and she will have the Eliquis continued and she is to be discharged rubén e with family. Length Of Stay: About 10 days. Disposition: Home with family and continue Home Health and to continue chemo. Prognosis: Fair. Rehab Goals: 1.Become independent with upper and lower body dressing, donning and doffing footwear, independent w ith transferring bed to chair to toilet, independent with showering and toileting. 2.Independently ambulate 250 feet with a rolling walker. 3.Independently propel a wheelchair 250 feet. 4.Independently go up and down 10 steps with bilateral handrails. 5.Independently perform all cognitive functioning. The goals were reviewed with Ms. Gaming and she is in agreement. By signing this document, I acknowledge that I personally performed a full physical examination on Ms Willian Gaming no later than 24 hours after her admission to the inpatient rehabilitation facility and det ermined that she is able to tolerate the above course of treatment at an intensive level for reasonab le period of time. A detailed individualized plan of care for her will be completed by hospital day 4 based on the preadmission screen, history and physical, and therapy evaluations. ISAIAS Voice ID: [id number]
--- NOTE | 2024-01-18 11:57 | RAD REPORT ---
EXAM DESCRIPTION: Teddy Single View01/18/2024 11:44 am CLINICAL HISTORY: Shortness of breath COMPARISON: January 09, 2024 FINDINGS: Elevation right hemidiaphragm is again demonstrated Small right pleural effusion Lungs appear clear of acute infiltrate. The heart is mildly enlarged
[2024-01-18] MEDS ORDERED: LOPERAMIDE HCL 2 MG CAPSULE PO PRN (18:23)
[2024-01-18] MEDS: MELATONIN 3 MG TABLET PO SCH (18:52)
[2024-01-18] MEDS ORDERED: ALBUTEROL 2.5 MG/3 ML NEB SOL NEB SCH (19:00)
--- NOTE | 2024-01-18 23:45 | PN ---
Date of Progress Note: 01/18/2024 Time Of Service: 1:35 p.m. Subjective: Ms. Gaming is doing well. There are some issues of ongoing loose stools, which she yuli d does not slow down significantly since her abdominal surgery. Otherwise, she denies any new compla ints. Objective: Again, mild abdominal pain. No fevers or chills. Mild myalgias, arthralgias. No rash. No psychiatric complaints. No other positives on the systems review. Physical Examination: Vital Signs: Blood pressure 122/59, pulse 58, respiratory rate 20, temperature 97.0, oxygen saturati on 96%. General: Ms. Gaming is again lying in bed in between therapy sessions. HEENT: She is normocephalic, atraumatic. Sclerae anicteric. Oropharynx pink and moist. Neck: Supple. Chest: Clear. Extremities: No significant edema in the lower extremities. Abdomen: Nondistended. Laboratory Studies: White blood cell count 2.5, hemoglobin 9.3, platelets 49. Sodium 134, potassium 4.2, chloride 110, carbon dioxide 23, BUN 24, creatinine 0.64, glucose 94, calcium 7.9, magnesium 2. 0, albumin 1.8, prealbumin 13.8. X-ray/imaging: Today, chest x-ray was done. The study showed no evidence of pneumonia. Lungs were clear of acute infiltrate. However, there was elevation of the right hemidiaphragm. Again demonstra danielle, there was a small right pleural effusion noted. It is noted she is on incentive spirometry. Medications: Tylenol 500 mg every 4 hours as needed, Eliquis 2.5 mg twice daily, melatonin 3 mg at b edtime, Ensure Max 330 mL daily. Progress Made With Physical And Occupational Therapy: Today with physical therapy, she was able to p erform [id number] transfers with minimum assistance, [id number] transfer with minimum assistance , ubfey-or-musvv transfer with minimum assistance. She ambulated with a rolling walker 50 feet twice , 120 feet once with contact guard assistance. Emphasis placed on upright posture. Mobilized a whee lchair 175 feet with standby assistance and verbal cues. With occupational therapy, she did attempt to stand for toileting and showering, but was too fatigued and weak to perform those tasks. She will do the shower in the morning. Ms. Gaming showed a fair progress with physical and occupational therapy so far and her pain is ther e. She does have the loose stools as noted. Assessment: Ms. Gaming is a 73-year-old patient in the rehabilitation unit with debility, noncardia c, nonpulmonary. She has a perforated gastric ulcer, status post surgical treatment. She has renal insufficiency, bradycardia, decreased mobility, decreased physical functioning, diabetes mellitus, hy pocalcemia, hypotension, hypothyroidism, thrombocytopenia, stage IV metastatic breast cancer to the l iver, kidney, and bone. Plan: 1.She will continue with physical, occupational, and if need be speech therapy with 3 becky rs a day, 5 of 7 days a week. 2.She will continue with management for DVT prophylaxis, for insomnia, for her pain, for her loose s tools with Imodium, hydrochlorothiazide for fluid management. Electrolytes will be replaced as appro priate. Her fall risk adhered to at all times and electrolyte abnormalities again addressed. Comorbidities That Are Impacting Rehabilitation: As noted, she does have stage IV breast cancer and is set to begin treatment with radiation and chemotherapy in [place]. She will have that followup on ce she leaves the rehabilitation unit. YUSUF/BENI Voice ID: [id number] Report ID: [id number]
[2024-01-19] MEDS: LETROZOLE 2.5 MG TAB PO SCH (08:44)
[2024-01-19] MEDS: ALBUTEROL 2.5 MG/3 ML NEB SOL NEB PRN (10:14)
--- NOTE | 2024-01-19 13:28 | P.RH.PN ---
Estimated Length of Stay: 13 Expected Discharge Date: 01/28/24 Discharge Disposition Plan: Home Family Support: Yes [facility] Goal: Mobility, Transfers, Self Care Vital Signs: Last Vital Signs Temp 97.7 F 01/19/24 06:30 Pulse 61 01/19/24 06:30 Resp 17 01/19/24 06:30 BP 120/58 L 01/19/24 06:30 Pulse Ox 96 01/19/24 06:30 Laboratory: Laboratory Last Values WBC 2.50 thou/uL (4.3-10.9) L 01/17/24 09:25 RBC 3.08 M/uL (3.86-4.86) L 01/17/24 09:25 Hgb 9.3 g/dL (12.0-15.0) L 01/17/24 09:25 Hct 27.7 % (36.0-45.0) L 01/17/24 09:25 MCV 89.7 fL (80-100) 01/17/24 09:25 MCH 30.2 pg (27.0-35.0) 01/17/24 09:25 MCHC 33.7 g/dL (32.0-36.0) 01/17/24 09:25 RDW 15.7 % (12.1-15.2) H 01/17/24 09:25 Plt Count 49 thou/uL (152-406) L D 01/17/24 09:25 MPV 9.2 fL (7.6-11.3) 01/17/24 09:25 Neutrophils % 78.8 % (41.7-73.7) H 01/17/24 09:25 Lymphocytes % 14.5 % (15.3-44.8) L 01/17/24 09:25 Monocytes % 4.8 % (3.3-12.3) 01/17/24 09:25 Eosinophils % 1.0 % (0-4.4) 01/17/24 09:25 Basophils % 0.9 % (0-1.3) 01/17/24 09:25 Absolute Neutrophils 2.0 K/uL (1.8-8.0) 01/17/24 09:25 Absolute Lymphocytes 0.4 K/uL (0.7-4.9) L 01/17/24 09:25 Absolute Monocytes 0.1 K/uL (0.1-1.3) 01/17/24 09:25 Absolute Eosinophils 0.0 K/uL (0-0.5) 01/17/24 09:25 Absolute Basophils 0.0 K/uL (0-0.5) 01/17/24 09:25 Platelet Estimate Decr 01/17/24 09:25 Morphology Comment Not seen (NOT SEEN) 01/17/24 09:25 Sodium 134 mEq/L (136-145) L 01/17/24 06:46 Potassium 4.2 mEq/L (3.5-5.1) 01/17/24 06:46 Chloride 110 mEq/L (98-107) H 01/17/24 06:46 Carbon Dioxide 23 mEq/L (21-32) 01/17/24 06:46 Anion Gap 5.2 mEq/L (5.0-15.0) 01/17/24 06:46 BUN 24 mg/dL (7-18) H 01/17/24 06:46 Creatinine 0.64 mg/dL (0.55-1.02) 01/17/24 06:46 Est GFR (CKD-EPI) 93 ml/min (=/>90) 01/17/24 06:46 Glucose 94 mg/dL (74-106) 01/17/24 06:46 Calcium 7.9 mg/dL (8.5-10.1) L 01/17/24 06:46 Magnesium 2.0 mg/dL (1.6-2.4) 01/17/24 06:46 Albumin 1.8 g/dL (3.4-5.0) L 01/17/24 06:46 Prealbumin 13.8 mg/dL (20-40) L 01/17/24 06:46 Urine Color Yellow (Yellow) 01/16/24 23:00 Urine Clarity Extremely turbid (Clear) H 01/16/24 23:00 Urine pH 5.5 (5.0-7.0) 01/16/24 23:00 Ur Specific Yoder 1.019 (1.005-1.030) 01/16/24 23:00 Glucose (UA)(Auto) Negative (Negative) 01/16/24 23:00 Urine Ketones Negative (Negative) 01/16/24 23:00 Urine Blood 3+ (Negative) H 01/16/24 23:00 Urine Nitrite Negative (Negative) 01/16/24 23:00 Urine Bilirubin Negative (Negative) 01/16/24 23:00 Urine Urobilinogen Normal (Normal) 01/16/24 23:00 Ur Leukocyte Esterase 500 Alicia/uL (Negative) H 01/16/24 23:00 Urine RBC 11-20 /HPF (None Seen) H 01/16/24 23:00 Urine WBC 20-50 /HPF (<5) H 01/16/24 23:00 Urine WBC Clumps Rare /HPF (None Seen) 01/16/24 23:00 Ur Squamous Epith Cells <5 /HPF (None Seen) 01/16/24 23:00 U Non-Squamous Epi Cells <5 /HPF (None Seen) 01/16/24 23:00 Urine Bacteria 20-50 /HPF (<20) H 01/16/24 23:00 Urine Mucus Slight /HPF (None Seen) 01/16/24 23:00 Ur Yeast w Hyphae Trace /HPF (None Seen) H 01/16/24 23:00 Urine Yeast (Budding) Occasional /HPF (None Seen) H 01/16/24 23:00 Urine Culture Reflexed Reflexed 01/16/24 23:00 Urine Total Protein Trace (Negative) H 01/16/24 23:00 Smear Scan Ok (OK) 01/17/24 09:25 Weight: 180 lb Wound Present: No Closed Surgical Incision Present: Yes Negative Pressure Wound Therapy Present: No Physician Update: Labs reviewed and she is mildy anemic. BIMS 15. Mild fatigue. 4/4 STG, 120' with CGA, WC 175' with SBA. Poor ADLs. Mild difficulty with ADLs. Summary: Patient's care plan and alf goals have been reviewed and revised as necessary. Please see the Rehabilitation Signature page for all necessary signatures.
[2024-01-19] MEDS ORDERED: ONDANSETRON 4 MG (ODT) TAB PO PRN (14:41)
--- NOTE | 2024-01-19 15:14 | P.PN ---
Date of Service: 01/19/24 S: Patient has a specific complaints, was having some diarrhea, says her HR was going to come out. Has been sleeping well. Appetite she says is okay. Not getting too depressed, but would like to be out of the hospital soon. O: Clinically patient looks surprisingly well. Vital signs are stable. Moderate effort on incentive spirometry. Wounds are clean, but slow to heal. Jones intact. Minimal out through the drain site. A: Surgically stable, tolerating rehab P: Stable status post exploratory laparotomy for perforated gastric ulcer. Will leave the jones in probably for another week. Patient encouraged as far as incentive spirometry, appetite, and to exercise.
[2024-01-19] MEDS: NA CHLORIDE 0.9% 1,000 ML IV SCH (15:22)
[2024-01-19] MEDS: SIMETHICONE 80 MG CHEWABLE TAB PO SCH (17:03)
[2024-01-19] MEDS: CYANOCOBALAMIN 1000MCG/ML INJ SQ ONE (18:00)
[2024-01-19] MEDS ORDERED: ALBUTEROL 2.5 MG/3 ML NEB SOL NEB SCH (19:00)
[2024-01-19] MEDS: DULOXETINE 20 MG CAP PO SCH (20:08)
[2024-01-19] MEDS: CYANOCOBALAMIN 1000MCG/ML INJ IM ONE (20:08)
[2024-01-20] MEDS: ALBUTEROL 2.5 MG/3 ML NEB SOL NEB PRN (04:45)
[2024-01-20] MEDS: FERROUS SULFATE 325 MG TAB PO SCH (08:12)
--- NOTE | 2024-01-20 16:15 | P.PN ---
Subjective Date of Service: 01/20/24 Patient reports intermittent shortness of breath and wheeze She is tolerating diet. Physical Examination - Vital Signs Temperature: 97.3 F Blood Pressure: 116/58 Pulse: 51 Respirations: 17 Pulse Ox (%): 96 Assessment And Plan - Plan Physical examination General: Alert and oriented x3, NAD, HEENT: Anicteric sclera Neck: Supple, no elevated JVD Heart: Heart sounds 1 and 2 normal, regular rhythm, normal rate, no pedal edema Lungs: Clear to auscultation bilaterally, adequate breath sounds bilaterally, no rhonchi or crackles. Abdomen: Soft, nondistended, nontender, normal bowel sounds. Extremities: No tenderness, no deformity Skin: Normal skin turgor, no rash. Neuro: No focal motor deficit. Normal speech. Psychiatry: Normal mood, no agitation. X-ray/imaging: No new imaging studies. Medications: Her medications have been reviewed today. Progress Made With Physical And Occupational Therapy: Today with her physical therapy: Supine to sit:Patient completed multiple sit<>stand transfers with CGA. Sit to stand: Patient completed multiple sit<>stand transfers with minimal assist. Ambulation: Patient completed gait training for 20 with Min A Wheelchair mobility: Patient propelled her wheelchair for 50 with CGA to Min A. Assessment: Diagnosis: History of perforated peptic ulcer status post Ted patch Diabetes mellitus type 2 Hypothyroidism Thrombocytopenia Stage IV metastatic breast cancer Metastasis to the liver, kidney and bone Decreased performance status with decreased mobility Plan: 1. Continue with physical, occupational, and speech therapy for 3.5 hours, 5 of 7 days. 2. Comorbidities: History of perforated peptic ulcer Surgery Dr. Winn input appreciated Leave sutures in for another [address] Winn. Continue Protonix. Diabetes mellitus type 2 Accu-Cheks and insulin sliding scale. Hypothyroidism Continue home dose Synthroid Acute bronchitis Bronchodilators as needed. Metastatic breast cancer Continue letrozole Comorbidities That Are Impacting Her Rehabilitation: Patient has stage IV metastatic breast cancer with decreased performance status and fatigue which is limiting her mobility.
[2024-01-21] MEDS: NA CHLORIDE 0.9% 1,000 ML IV ONE (14:45)
[2024-01-21] MEDS: NA CHLORIDE 0.9% 1,000 ML IV SCH (15:00)
--- NOTE | 2024-01-21 19:22 | P.PN ---
Subjective Date of Service: 01/21/24 Patient reports fatigue, no other complaint. She is tolerating diet. Physical Examination - Vital Signs Temperature: 97.3 F Blood Pressure: 116/58 Pulse: 51 Respirations: 17 Pulse Ox (%): 96 Assessment And Plan - Plan Physical examination General: Alert and oriented x3, NAD, Heart: Heart sounds 1 and 2 normal, regular rhythm, normal rate, no pedal edema Lungs: Clear to auscultation bilaterally, adequate breath sounds bilaterally, no rhonchi or crackles. Abdomen: Soft, nondistended, nontender, normal bowel sounds. Extremities: No deformity Skin: Normal skin turgor, no rash. Neuro: No focal motor deficit. Psychiatry: Normal mood, no agitation. X-ray/imaging: No new imaging studies. Medications: Her medications have been reviewed today. Progress Made With Physical And Occupational Therapy: Today with her physical therapy: Supine to sit:Patient completed multiple sit<>stand transfers with CGA. Sit to stand: Patient completed multiple sit<>stand transfers with minimal assist. Ambulation: Patient completed gait training for 20 with Min A Wheelchair mobility: Patient propelled her wheelchair for 50 with CGA to Min A. Assessment: Diagnosis: History of perforated peptic ulcer status post Ted patch Diabetes mellitus type 2 Hypothyroidism Thrombocytopenia Stage IV metastatic breast cancer Metastasis to the liver, kidney and bone Decreased performance status with decreased mobility Plan: 1. Continue with physical, occupational, and speech therapy for 3.5 hours, 5 of 7 days. 2. Comorbidities: History of perforated peptic ulcer Surgery Dr. Winn is following. Sutures removal per Dr. Winn. Continue Protonix. Diabetes mellitus type 2 Accu-Cheks and insulin sliding scale. Hypothyroidism Continue home dose Synthroid Acute bronchitis Bronchodilators as needed. Metastatic breast cancer Continue letrozole Comorbidities That Are Impacting Her Rehabilitation: Patient has stage IV metastatic breast cancer with decreased performance status and fatigue which is limiting her mobility. She is progressing slowly with therapy.
[2024-01-23 07:52] LABS: Absolute Lymphocytes (CBC) 0.6 K/uL (0.7-4.9); Absolute Monocytes 0.2 K/uL (0.1-1.3); Absolute Neutrophil 1.6 K/uL (1.8-8.0); Basophils % 0.7 % (0-1.3); Eosinophils % 0.7 % (0-4.4); Hematocrit 22.5 % (36.0-45.0); Hemoglobin 7.7 g/dL (12.0-15.0); Lymphocytes % 26.4 % (15.3-44.8); MCH 30.9 pg (27.0-35.0); MCHC 34.1 g/dL (32.0-36.0); MCV 90.7 fL (80-100); MPV 7.8 fL (7.6-11.3); Monocytes % 8.3 % (3.3-12.3); Neutrophils % 63.9 % (41.7-73.7); Nucleated Red Blood Cells % 0.8 % (0-0); Platelets 187 thou/uL (152-406); RBC Red Blood Cell Count 2.49 M/uL (3.86-4.86); Red Cell Distribution Width 17.2 % (12.1-15.2)
[2024-01-23 07:57] LABS: Anion Gap 7.3 mEq/L (5.0-15.0); Potassium 3.3 mEq/L (3.5-5.1)
[2024-01-23 09:24] LABS: Anisocytosis 1+; Band Neutrophils 6 % (0-1); Blood Morphology Comment NOTED (NOT SEEN); Differential Total Cells Count 100; Eosinophils 1 % (0-3); Lymphocytes 28 % (15-42); Metamyelocytes 1 % (0-0); Monocytes 7 % (0-10); Segmented Neutrophils 57 % (40-80); Toxic Granulation 1+
[2024-01-23 09:25] LABS: Nucleated Red Blood Cells 2 /100WBC; Platelet Estimate ADEQ; Polychromasia 2+
[2024-01-23] MEDS: POTASSIUM CL SA 10 MEQ TAB PO ONE (12:09)
[2024-01-24] MEDS: POTASSIUM CL SA 10 MEQ TAB PO SCH (08:01)
[2024-01-24] MEDS: FE SULF/FA/VIT B COMP & C TAB PO SCH (08:02)
--- NOTE | 2024-01-24 23:45 | PN ---
Date of Progress Note: 01/24/2024 Time Of Service: 1:25 p.m. Subjective: Ms. Gaming is resting in the room. Her daughter is at bedside. She has no new complai nts. She does report some better progress today with her therapy. She is happier about how she is d oing and that she will be ready for discharge in 2 days that will be on Wednesday. She is having mor e solid bowel movements today and however is still having significant episodes of hypotension and not hydrating as well as she should. Her daughter and the patient were encouraged that she should drink 64 to 70 ounces of water daily and she agrees to work on drinking water. Review of Systems: No significant fevers or chills. Mild abdominal pain. No other positives on the systems review. Physical Examination: Vital Signs: Blood pressure 115/67, pulse 62, respiratory rate 16, temperature 97.2, oxygen saturati on 97%. General: Ms. Gaming is sitting in bed. HEENT: She is normocephalic, atraumatic. Sclerae anicteric. Oropharynx pink and moist. Neck: Supple. Chest: Clear. Extremities: No significant clubbing, cyanosis, or edema. Surgical site in the abdominal area has g ood hemostasis. Laboratory Studies: White blood cell count 2.4, hemoglobin 7.7, that was a drop from 9.3, platelets are improved from 49 to 187. Sodium 139, potassium 3.3, chloride 109, carbon dioxide 26, BUN 25, cre atinine 0.57, calcium 7.8. X-ray/imaging: No new x-rays or imaging. Medications: Medications have been reviewed and she has potassium replacement 10 mEq daily, simethic one for gas. Medications again are unchanged. Progress Made With Physical And Occupational Therapy: Today with physical therapy, bhykna-db-vgf tra nsfers with standby assistance. Guo-yx-hcpvm transfers with minimum to contact guard assistance. Sh e ambulated 35 feet, 60 feet twice, 175 feet with contact guard assist using a rolling walker. She p ropelled a wheelchair 175 feet with standby assistance. With occupational therapy, minimum assistanc e for sit to stand, maximum assistance for toilet hygiene, floating management while standing. Ms. Gaming is making fair progress overall with physical and occupational therapy, but she still nee ds significant help to be able to return home and be independent. Assessment: Ms. Gaming is a 73-year-old patient in the rehabilitation unit with a perforated gastri c ulcer, who has had surgery. She has renal insufficiency, bradycardia, decreased mobility, decrease d physical functioning, diabetes mellitus, hypocalcemia, hypotension, hypothyroidism, thrombocytopeni a, stage IV metastatic breast cancer to liver, kidney, and bone. Today with discussion with the alessia ent and her daughter, she indicated that she did not want to continue with her chemotherapy as that d oes cause significant upset stomach and nausea and that wish will be respected. Plan: 1.Continue the patient's ongoing chemotherapy as per her strong request. 2.Continue with physical and occupational therapy for 3 hours a day, 5 of 7 days. 3.Continue with all comorbid condition medications including for DVT prophylaxis, managing her blood pressure and fluid levels, which will include encouraging water intake as she is significantly dehyd rated with low blood pressures. Continue with pain issues, GE reflux issues, hypothyroid medications , and other comorbidities as noted. Comorbidities That Are Impacting Rehabilitation: As noted, she does have stage IV breast cancer, whi ch has been she wants with chemotherapy on hold and continue with rehabilitation and be able to be di scharged home, which is coming up on Wednesday. She will follow up with the oncologist for further plans in terms of her cancer treatment. YUSUF/BENI Voice ID: [id number] Report ID: [id number]
[2024-01-25 04:22] LABS: Absolute Lymphocytes (CBC) 1.2 K/uL (0.7-4.9); Absolute Monocytes 0.3 K/uL (0.1-1.3); Absolute Neutrophil 2.1 K/uL (1.8-8.0); Basophils % 0.6 % (0-1.3); Eosinophils % 0.2 % (0-4.4); Hematocrit 21.9 % (36.0-45.0); Hemoglobin 7.6 g/dL (12.0-15.0); Lymphocytes % 32.3 % (15.3-44.8); MCH 31.6 pg (27.0-35.0); MCHC 34.5 g/dL (32.0-36.0); MCV 91.5 fL (80-100); MPV 7.8 fL (7.6-11.3); Monocytes % 9.1 % (3.3-12.3); Nucleated Red Blood Cells % 0.8 % (0-0); Platelets 235 thou/uL (152-406); Red Cell Distribution Width 17.5 % (12.1-15.2)
[2024-01-25 04:26] LABS: Neutrophils % 57.8 % (41.7-73.7)
[2024-01-25 04:52] LABS: Albumin 1.8 g/dL (3.4-5.0); Anion Gap 1.7 mEq/L (5.0-15.0); Magnesium 1.7 mg/dL (1.6-2.4); Potassium 3.7 mEq/L (3.5-5.1); Prealbumin 12.7 mg/dL (20-40)
--- NOTE | 2024-01-26 00:39 | PN ---
Date of Progress Note: 01/25/2024 Time Of Service: 1:20 p.m. Subjective: Ms. Gaming is in bed in between therapy sessions. Does have an abdominal binder on. S he is in no acute distress. Her daughter is not in the room at this time. She has no new complaints . She is happy with her therapy, ready for discharge in the morning and continue therapy once discha rged. Objective: No fevers, chills, nausea, vomiting. She is having more solid bowel movements. No other complaints in the GI system, where she has had a perforated gastric ulcer and treated by Dr. Winn . Physical Examination: Vital Signs: Blood pressure 112/66. She did have orthostatics and was slightly positive. She had w hile lying down 149/65, pulse of 53; while sitting 97/54, pulse of 52; and while standing 93/50 with pulse of 80. She is to have abdominal binders and KRISTIN hose when ambulating. HEENT: Otherwise, she is normocephalic, atraumatic. Sclerae anicteric. Oropharynx pink and moist. Neck: Supple. Chest: Clear. Extremities: No clubbing, cyanosis, or edema noted. Laboratory Studies: White blood cell count is 3.7, hemoglobin is 7.6, two days ago was 7.7, platelet s 235. Sodium 136, potassium 3.7, chloride 112, carbon dioxide 26, BUN 28, creatinine 0.64, glucose 96, calcium 7.9, magnesium 1.7, albumin 1.8, prealbumin 12.7, slightly decreased from 30.8 a week ago . X-ray/imaging: No new x-rays or imaging. Medications: Medications have been reviewed and are unchanged. Progress Made With Physical And Occupational Therapy: In terms of physical therapy today, she did navas pine-to-sit transfers with standby assistance, dhj-ms-[id number] transfers minimum assistance. She ambul ated 75 feet 3 times, 60 feet twice, and 170 feet once with standby assistance. She attempted, but w as unable to complete stairs. With occupational therapy, standby assistance for segjqs-ml-qfk transf ers, qly-lq-kqsoc and wheelchair with elevated bed with a rolling walker, minimal assistance. Toilet hygiene, standby assistance. She had a solid bowel movement, required supervision and extra time fo r bathing due to fatigue and shortness of breath, donning and doffing of socks independent. It is no kristin of course the patient will be discharged where she will go to [facility] to continue with th bijupy in a safe environment. Assessment: Ms. Gaming is a 73-year-old patient in the rehabilitation unit with a perforated gastri c ulcer and has had surgical treatment by Dr. Winn. She has renal insufficiency, bradycardia, dec reased mobility, decreased physical functioning, diabetes mellitus, hypocalcemia, hypotension, hypoth yroidism, orthostatic hypotension, thrombocytopenia, stage IV breast cancer, which is to the liver, k idney, and bone and she is to hold any chemotherapy and that is being done per patient's request. Plan: She will be continuing physical and occupational therapy today, she will be ready for discharg e to [facility] tomorrow, and all medications to be continued while she is discharged. Recommen ded to continue with physical and occupational therapy there. Comorbidities That Are Impacting Rehabilitation: At this point, the chemo has been held for stage IV breast cancer and she has less nausea and vomiting and the patient does realize the issues of holdin g chemotherapy and she will plan to follow up with her oncologist. YUSUF/BENI Voice ID: [id number] Report ID: [id number]
[2024-01-26 07:17] VITALS: BP 142/63; TEMP 98
== END 2024-01-26 11:05 | DRG 947 ==
LOC: UNDOADMIN 10:44 → 5TH 10:44 → 5TH-TC 10:44 → 5TH 10:53
PROVIDERS: ADMIT Psychiatry & Neurology Neurology with Special Qualifications in Child Neurology; ATTEND Psychiatry & Neurology Neurology with Special Qualifications in Child Neurology
DX: R53.81 Other malaise (principal); K25.5 Chronic or unspecified gastric ulcer with perforation; C78.7 Secondary malignant neoplasm of liver and intrahepatic bile duct; C79.51 Secondary malignant neoplasm of bone; C79.00 Secondary malignant neoplasm of unspecified kidney and renal pelvis; J20.9 Acute bronchitis, unspecified; R00.1 Bradycardia, unspecified; E11.9 Type 2 diabetes mellitus without complications; I10 Essential (primary) hypertension; E83.51 Hypocalcemia; I95.9 Hypotension, unspecified; E03.9 Hypothyroidism, unspecified; D69.6 Thrombocytopenia, unspecified; C50.919 Malignant neoplasm of unspecified site of unspecified female breast; G47.00 Insomnia, unspecified
CPT/HCPCS: 36415; 71045; 80048; 81001; 82040; 83735; 84134; 85025; 87077; 87086; 87088; 87186; 94640; 97110; 97116; 97163; 97165; 97530; 97542; J3420; J7030; J7613

== ENCOUNTER 2024-11-14 16:32 | Emergency (ER) | payer OTHER ==
--- OUTSIDE RECORDS SUMMARY | 2024-11-14 16:38 | XMS REPORT | Continuity of Care Document ---
Author Name Unknown Address [address] [facility] [place] [address] [facility] [address] [facility] [address] [place] [address] Care Team Providers Care Piano Builder Name Role Phone Nicolle Bethea Primary Care Physician [phone] NICOLLE RONDON Attending Clinician Unavailable STELLA KEITA Attending Clinician Unavailable Lab, Ang - Db Attending Clinician Unavailable Nicolle Bethea Attending Clinician [phone] Doctor Unassigned, [place] Attending Clinician U Stella Reyna MD Attending Clinician [phone], [facility] Attending Clinician Unavailable DANIELA MCQUEEN Attending Clinician Unavail able Stella Keita MD Attending Clinician [phone] Nicolle Bethea Attending Clinician [phone] CICI LYNCH Attending Clinician Unavailable Doctor Unassigned, [place] Attending Clinician U navhayley Lab, Ang - Db Attending Clinician Unavailable ALISTAIR GARNER Attending Clinician Donna Fern Bills Attending Clinician UnaRah Castillo Attending Clinician Unavailable ADDIE AGUILERA Attending Clinician UnavailADDIE Morgan Attending Clinician Unavailrobin Villa FLOAT TENDER, Hafsa Patel Attending Clinician Unavail able Addie Aguilera MD Attending Clinician [phone] Po Cervantes PA-C Attending Clinician [phone] Thiago REECE, Irais Cervantes Attending Clinician Unav hayley Cano PT, Samara Attending Clinician UnavailPO Muhammad Attending Clinician Unavailable Unknown, Attending Attending Clinician Unavailab shahana Mcqueen MD, Daniela Orlando Attending Clinician Alyssa Kunz MD Attending Clinician [phone] Pepe RN, Kailyn Shields Attending Clinician Unavailab shahana Santacruz, [facility] P[facility] Assessment Clinic Attending Rah Rodríguez MD Attending Clinician [phone] RAH JIANG Attending Clinician Unavailable Scooby Austin Attending Clinician Unavailable Pcp, [facility] Attending Clinicia n Unavailable ALYSSA KUNZ Attending Clinician Unavailable Pcp-Lab Attending Clinician Unavailable Srikanth Rogers DO Attending Clinician DAYNA SINGLETON Attending Clinician Unavailable Alfonso Lucia DO Attending Clinician [phone] Dayna Singleton MD Attending Clinician [phone] Thea Unger MD Attending Clinician Tremayne Miller MD Attending Clinician [phone] Fern Mata Admitting Clinician Rah Toney Admitting Clinician Unavailable DANIELA MCQUEEN Admitting Clinician Unavail able Payers Payer Name Policy Type Policy Number Effective Date Expirati on Date Source MEDICARE PART A \\T\\ [id number] 2014 00:00:00 PHYSICIAN CAROLINE [id number] 2017 00:00:00 Problems Condition Name Condition Details Condition Category Status Onset Date Resolution Date Last Treatment Date Treating Clinician Comments Source Glossitis Glossitis Disease Active 11-14 00:00: 00 [facility] Nausea Nausea Disease Active 11-14 00:00: 00 [facility] Left arm pain Left arm pain Disease Active 11-14 00:00: 00 [facility] Anemia, unspecifie d type Anemia, unspecifie d type Disease Active 2023-09 00:00: 00 [facility] Acute nonintract able headache, unspecifie d headache type Acute nonintract able headache, unspecifie d headache type Disease Active 2023-09 00:00: 00 [facility] 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 Disease Active 03-14 00:00: 00 [facility] Elevated brain natriureti c peptide (BNP) level Elevated brain natriureti c peptide (BNP) level Disease Active 03-07 00:00: 00 [facility] Primary hypertensi on Primary hypertensi on Disease Active 03-07 00:00: 00 [facility] Leg edema Leg edema Disease Active 03-07 00:00: 00 [facility] Hypervolem ia, unspecifie d hypervolem ia type Hypervolem ia, unspecifie d hypervolem ia type Disease Active 03-07 00:00: 00 [facility] Albuminuri a Albuminuri a Disease Active 03-07 00:00: 00 [facility] Abnormal albumin Abnormal albumin Disease Active 03-07 00:00: 00 [facility] Iron deficiency anemia, unspecifie d iron deficiency anemia type Iron deficiency anemia, unspecifie d iron deficiency anemia type Disease Active 03-07 00:00: 00 [facility] Obesity (BMI 30-39.9) Obesity (BMI 30-39.9) Disease Active 03-07 00:00: 00 [facility] Breast cancer metastasiz ed to bone, unspecifie d laterality Breast cancer metastasiz ed to bone, unspecifie d laterality Disease Active 02-21 00:00: 00 [facility] Acute gastric ulcer with perforatio n Acute gastric ulcer with perforatio n Disease Active 2024-0 6-04 00:00: 00 [facility] Lower leg edema Lower leg edema Disease Active 604 00:00: 00 [facility] Skin lesion of face Skin lesion of face Disease Active 12 00:00: 00 [facility] Liver cyst Liver cyst Disease Active 02-06 00:00: 00 [facility] Hyperbilir ubinemia Hyperbilir ubinemia Disease Active 02-06 00:00: 00 [facility] Invasive ductal carcinoma of breast, stage I, right Invasive ductal carcinoma of breast, stage I, right Disease Active 2017-09 00:00: 00 [facility] Vitamin D deficiency Vitamin D deficiency Disease Active 01-04 00:00: 00 [facility] Essential hypertensi on Essential hypertensi on Disease Active 06-10 00:00: 00 [facility] Acquired hypothyroi dism Acquired hypothyroi dism Disease Active 06-10 00:00: 00 [facility] History of condyloma acuminatum History of condyloma acuminatum Disease Active 09-25 00:00: 00 [facility] History of cervical dysplasia History of cervical dysplasia Disease Active 09-25 00:00: 00 [facility] Urinary incontinen ce, unspecifie d incontinen ce type Urinary incontinen ce, unspecifie d incontinen ce type Disease Active 09-24 00:00: 00 [facility] Cystocele, midline Cystocele, midline Disease Active 09-24 00:00: 00 [facility] Invasive ductal carcinoma of breast, stage IIIA, left Invasive ductal carcinoma of breast, stage IIIA, left Disease Active 2014-09 0 00:00: 00 Overview: Formattin g of this [...] of chemother apy: 02/10/2016 Chemother apy agent: [id number] tor Therapy: Anastrazo le, letrozole . Currently taking exemestan e. [facility] Observatio n after surgery Observatio n after surgery Disease Resolve d 2-15 00:00: 00 2017-06-10 00:00:00 2017-06-10 17:02:14 [facility] Screening for HPV (human papillomav irus) Screening for HPV (human papillomav irus) Disease Resolve d 09-25 00:00: 00 2017-06-10 00:00:00 2017-06-10 17:02:23 [facility] Elevated blood pressure reading without diagnosis of hypertensi on Elevated blood pressure reading without diagnosis of hypertensi on Disease Resolve d 09-25 00:00: 00 2017-06-10 00:00:00 2017-06-10 17:02:04 [facility] Encounter for routine gynecologi hallie examinatio n Encounter for routine gynecologi hallie examinatio n Disease Resolve d 09-24 00:00: 00 2017-06-10 00:00:00 2017-06-10 17:01:55 [facility] Thickened endometriu m Thickened endometriu m Disease Resolve d 09-24 00:00: 00 2017-06-10 00:00:00 2017-06-10 17:04:08 [facility] Postmenopa usal bleeding Postmenopa usal bleeding Disease Resolve d 09-24 00:00: 00 2017-06-10 00:00:00 2017-06-10 17:04:20 [facility] Endocervic al polyp Endocervic al polyp Disease Resolve d 09-24 00:00: 00 2017-06-10 00:00:00 2017-06-10 17:04:16 [facility] Allergies, Adverse Reactions, Alerts Allergy Name Allergy Type Status Severity Reaction(s) Onset Date Inactive Date Treating Clinician Comments Source codeine DA Active U NAUSEA 12-13 00:00: 00 [facility] aspirin DA Active U NAUSEA 12-13 00:00: 00 [facility] cefdinir DA Active U NAUSEA 12-13 00:00: 00 [facility] morphine DA Active U NAUSEA 12-13 00:00: 00 [facility] No Known Allergie s DA Active U 12-12 00:00: 00 [facility] MORPHINE DRUG INGREDI Active N/V 04-11 00:00: 00 [facility] Morphine Propensi ty to adverse reaction s Active Nausea and/or Vomiting 04-11 00:00: 00 [facility] ASPIRIN DRUG INGREDI Active Other-Cmnt 2016-09 00:00: 00 [facility] Aspirin Propensi ty to adverse reaction s Active Other - See comments 2016-09 00:00: 00 [facility] Iodine And Iodide Containi ng Products Propensi ty to adverse reaction s Active Unknown - See comments 05-01 00:00: 00 Upsets her stomach [facility] CEFDINIR DRUG INGREDI Active Hives 05-01 00:00: 00 [facility] CODEINE DRUG INGREDI Active Unknown-Cmnt 05-01 00:00: 00 [facility] IODINE AND IODIDE CONTAINI NG PRODUCTS Drug Class Active Unknown-Cmnt 05-01 00:00: 00 [facility] Cefdinir Propensi ty to adverse reaction s Active Hives 05-01 00:00: 00 [facility] Iodine And Iodide Containi ng Products Propensi ty to adverse reaction s Active Unknown - See comments 05-01 00:00: 00 Upsets her stomach [facility] Codeine Propensi ty to adverse reaction s Active Unknown - See comments 05-01 00:00: 00 [facility] Social History Social Habit Start Date Stop Date Quantity Comments Source History SDOH Alcohol Frequency [facility] History SDOH Alcohol Std Drinks [facility] History SDOH Alcohol Binge [facility] Gender identity [facility] Alcoholic beverage intake 2024-11-14 00:00:00 2024-11-14 00:00:00 0 /d [facility] History of Social function 2024-02-22 00:00:00 2024-02-22 00:00:00 [facility] Alcohol intake 2023-04-30 00:00:00 2023-04-30 00:00:00 0 /d [facility] Exposure to SARS-CoV-2 (event) 2022-05-24 00:00:00 2022-06-03 13:15:00 Not sure [facility] Tobacco use and exposure 2022-04-24 00:00:00 2022-04-24 00:00:00 Smokeless tobacco non-user [facility] Alcohol Comment 2015-05-07 00:00:00 2015-05-07 00:00:00 drank for 4-5 years, quit 1987 [facility] Sex assigned at 1950 00:00:00 1950 00:00:00 [facility] Smoking Status Start Date Stop Date Source Never smoked tobacco [facility] Medications Ordered Medication Name Filled Medication Name Start Date Stop Date Current Medication? Ordering Clinician Indication Dosage Frequency Signature (SIG) Comments Components Source ondansetron 4 mg disintegrat ing tablet 11-14 00:00: 00 Yes [id number] 4mg Take 1 tablet by mouth every 8 (eight) hours as needed for Nausea and Vomiting (N/V). [facility] gabapentin 100 mg capsule 11-09 00:00: 00 Yes [id number] 100mg Take 1 capsule by mouth 2 (two) times daily as needed for Pain (scale 4-6). [facility] furosemide (LASIX) 20 mg tablet 2023-09 00:00: 00 Yes [id number] 4101 20mg Take 1 tablet by mouth in the morning. [facility] levothyroxi ne 75 mcg tablet 2023-09 2- 00:00: 00 Yes [id number] 75ug Take 1 tablet by mouth every morning. [facility] gabapentin 100 mg capsule 2023-09 1 00:00: 00 11-09 00:00 :00 No [id number] 100mg Take 1 capsule by mouth 2 (two) times daily as needed for Pain (scale 4-6). [facility] LEVOTHYROXI NE 50 mcg tablet 2023-09 00:00: 00 Yes [id number] 50ug TAKE 1 TABLET BY MOUTH EVERY MORNING. ON EMPTY STOMACH. [facility] levothyroxi ne 50 mcg tablet 2023-09 018 00:00: 00 08-04 00:00 :00 No [id number] 50ug Take 1 tablet by mouth every morning. On empty stomach. [facility] furosemide (LASIX) 20 mg tablet 2023-09 0 00:00: 00 08-22 00:00 :00 No [id number] 20mg Take 1 tablet by mouth every morning and evening. [facility] spironolact one 25 mg tablet 2023-09 0 00:00: 00 08-22 00:00 :00 No [id number] 25mg Take 1 tablet by mouth in the morning. [facility] spironolact one 25 mg tablet 04-13 00:00: 00 07-06 00:00 :00 No [id number] 4101 25mg Take 1 tablet by mouth in the morning. [facility] DULOXETINE 20 mg capsule 04-07 00:00: 00 08-14 00:00 :00 No [id number] 20mg TAKE 1 CAPSULE BY MOUTH EVERYDAY AT BEDTIME [facility] furosemide (LASIX) 20 mg tablet - 00:00: 00 07-06 00:00 :00 No [id number] 20mg Take 1 tablet by mouth every morning and evening. [facility] spironolact one 25 mg tablet 03-22 00:00: 00 04-13 00:00 :00 No [id number] 4101 25mg Take 1 tablet by mouth in the morning. [facility] albuterol (PROAIR HFA) 90 mcg/actuati on inhaler 03-14 00:00: 00 Yes [id number] 2{puff} Inhale 2 Puffs every 6 (six) hours as needed for Wheezing or Shortness of Breath. [facility] LORazepam (ATIVAN) 0.5 mg tablet 03-14 00:00: 00 Yes [id number] .5mg Take 1 tablet by mouth as needed for Anxiety. [facility] DULoxetine 20 mg capsule 03-14 00:00: 00 04-07 00:00 :00 No [id number] 20mg Take 1 capsule by mouth at bedtime. [facility] losartan 25 mg tablet 03-07 15:59: 09 03-07 00:00 :00 No [facility] hydrALAZINE 10 mg tablet 03-07 15:59: 03 03-07 00:00 :00 No [facility] melatonin 3 mg Cap 03-07 15:44: 35 Yes 3mg Take 3 mg by mouth in the morning. [facility] ferrous sulfate (IRON) 325 mg (65 mg iron) tablet 03-07 15:41: 25 Yes 325mg Take 1 tablet by mouth in the morning and 1 tablet at noon and 1 tablet in the evening. Take with meals. [facility] multivit with iron,minera ls (MULTIVITAM IN AND MINERALS ORAL) 03-07 15:40: 55 Yes Take by mouth daily. [facility] Cranberry 500 mg Cap 03-07 15:40: 55 Yes 500mg Take 500 mg by mouth in the morning. [facility] spironolact one 25 mg tablet 03-07 00:00: 00 03-22 00:00 :00 No [id number] 25mg Take 1 tablet by mouth in the morning. [facility] furosemide (LASIX) 20 mg tablet 03-07 00:00: 00 03-22 00:00 :00 No [id number] 20mg Take 1 tablet by mouth every morning and evening. [facility] losartan 25 mg tablet 02-21 13:17: 57 Yes [facility] hydrALAZINE 10 mg tablet 02-21 13:17: 56 Yes [facility] inhalat.spa cing dev,large mask (PURE COMFORT SPACER-ADUL T MASK) Spcr 02-21 00:00: 00 Yes [id number] 1U 1 Units every 4 (four) hours as needed (wheezing) . Inhaler spacer [facility] mupirocin 2 % ointment 02-21 00:00: 00 03-08 04:59 :00 No [id number] Apply to area(s) 3 (three) times daily for 14 days. [facility] furosemide (LASIX) 20 mg tablet 02-21 00:00: 00 03-07 00:00 :00 No [id number] 20mg Take 1 tablet by mouth in the morning. [facility] ondansetron 4 mg tablet 02-14 00:00: 00 Yes [facility] ELIQUIS 2.5 mg tablet 02-14 00:00: 00 08-14 00:00 :00 No 2.5mg Take 1 tablet by mouth in the morning and 1 tablet in the evening. [facility] DULoxetine 20 mg capsule 02-14 00:00: 00 03-14 00:00 :00 No 20mg Take 1 capsule by mouth at bedtime. [facility] amLODIPine 10 mg tablet 01-08 00:00: 00 03-07 00:00 :00 No AT BEDTIME [facility] carvediloL 3.125 mg tablet 01-08 00:00: 00 03-07 00:00 :00 No TWICE DAILY WITH MEALS [facility] albuterol (VENTOLIN) inhaler 2 Puff 2022-09 0 20:00: 00 07-20 19:17 :00 No [id number] 2{puff} [facility] albuterol 90 mcg/actuati on inhaler 2022-09 0 00:00: 00 Yes [id number] 2{puff} Inhale 2 Puffs every 6 (six) hours as needed for Shortness of Breath. [facility] LEVOTHYROXI NE 50 mcg tablet - 00:00: 00 07-07 00:00 :00 No [id number] 50ug TAKE 1 TABLET BY MOUTH EVERY MORNING. ON EMPTY STOMACH. [facility] HYDROCHLORO THIAZIDE 25 mg tablet - 00:00: 00 03-07 00:00 :00 No [id number] TAKE 1 TABLET BY MOUTH EVERY DAY [facility] multivit with iron,minera ls (MULTIVITAM IN AND MINERALS ORAL) 4-16 11:29: 15 Yes Take by mouth daily. [facility] levothyroxi ne 50 mcg tablet 4-02 00:00: 00 01-30 00:00 :00 No [id number] 50ug Take 1 tablet by mouth every morning. On empty stomach. [facility] hydroCHLORO thiazide 25 mg tablet 4-02 00:00: 00 01-30 00:00 :00 No [id number] 25mg Take 1 tablet by mouth daily. [facility] HYDROCHLORO THIAZIDE 25 mg tablet 3-04 00:00: 00 12-20 00:00 :00 No [id number] TAKE 1 TABLET BY MOUTH EVERY DAY [facility] levothyroxi ne 50 mcg tablet 2019-09 2-10 00:00: 00 12-11 00:00 :00 No [id number] 50ug Take 1 tablet by mouth every morning. On empty stomach. [facility] albuterol (PROAIR HFA) 90 mcg/actuati on inhaler 2019-09 00:00: 00 03-14 00:00 :00 No [id number] 2{puff} Inhale 2 Puffs every 6 (six) hours as needed for Wheezing or Shortness of Breath. [facility] Cholecalcif sly, Vitamin D3, (VITAMIN D3) 2,000 unit capsule 2016-09 00:00: 00 Yes [id number] 2000U Take 1 capsule by mouth in the morning. [facility] Vital Signs Vital Name Observation Time Observation Value Comments S ource Systolic blood pressure 2024-11-14 19:37:00 154 mm[Hg] [facility] Diastolic blood pressure 2024-11-14 19:37:00 82 mm[Hg] [facility] Heart rate 2024-11-14 19:36:00 109 /min [facility] Body temperature 2024-11-14 19:36:00 36.94 [facility] Respiratory rate 2024-11-14 19:36:00 18 /min [facility] Body height 2024-11-14 19:36:00 160 cm [facility] Body weight 2024-11-14 19:36:00 69.582 kg [facility] BMI 2024-11-14 19:36:00 27.17 kg/m2 [facility] Oxygen saturation in Arterial blood by Pulse oximetry 2024-11-14 19:36:00 96 /min [facility] Systolic blood pressure 2024-08-22 19:17:00 147 mm[Hg] [facility] Diastolic blood pressure 2024-08-22 19:17:00 57 mm[Hg] [facility] Heart rate 2024-08-22 19:17:00 57 /min [facility] Body temperature 2024-08-22 19:17:00 36.67 [facility] Respiratory rate 2024-08-22 19:17:00 15 /min [facility] Body height 2024-08-22 19:17:00 160 cm per pt [facility] Body weight 2024-08-22 19:17:[address] [facility] BMI 2024-08-22 19:17:00 28.09 kg/m2 [facility] Oxygen saturation in Arterial blood by Pulse oximetry 2024-08-22 19:17:00 95 /min [facility] Systolic blood pressure 2024-08-14 19:32:00 134 mm[Hg] [facility] Diastolic blood pressure 2024-08-14 19:32:00 68 mm[Hg] [facility] Heart rate 2024-08-14 19:22:00 66 /min [facility] Body temperature 2024-08-14 19:22:00 37.06 [facility] Body height 2024-08-14 19:22:00 160 cm [facility] Body weight 2024-08-14 19:22:00 70.534 kg [facility] BMI 2024-08-14 19:22:00 27.55 kg/m2 [facility] Oxygen saturation in Arterial blood by Pulse oximetry 2024-08-14 19:22:00 96 /min [facility] Systolic blood pressure 2024-05-23 18:27:00 130 mm[Hg] [facility] Diastolic blood pressure 2024-05-23 18:27:00 75 mm[Hg] [facility] Heart rate 2024-05-23 18:27:00 73 /min [facility] Oxygen saturation in Arterial blood by Pulse oximetry 2024-05-23 18:27:00 99 /min [facility] Body height 2024-05-23 18:22:00 160 cm [facility] weight 2024-05-23 18:22:00 70.988 kg [facility] BMI 2024-05-23 18:22:00 27.72 kg/m2 [facility] Systolic blood pressure 2024-05-12 18:13:00 134 mm[Hg] [facility] Diastolic blood pressure 2024-05-12 18:13:00 79 mm[Hg] [facility] Heart rate 2024-05-12 18:13:00 75 /min [facility] Body temperature 2024-05-12 18:13:00 36.83 [facility] Respiratory rate 2024-05-12 18:13:00 18 /min [facility] Body height 2024-05-12 18:13:[address] [facility] Body weight 2024-05-12 18:13:[address] [facility] BMI 2024-05-12 18:13:00 27.72 kg/m2 [facility] Oxygen saturation in Arterial blood by Pulse oximetry 2024-05-12 18:13:00 95 /min [facility] Systolic blood pressure 2024-03-22 19:31:00 136 mm[Hg] [facility] Diastolic blood pressure 2024-03-22 19:31:00 61 mm[Hg] [facility] Heart rate 2024-03-22 19:31:00 68 /min [facility] Body temperature 2024-03-22 19:31:00 37.11 [facility] Respiratory rate 2024-03-22 19:31:00 19 /min [facility] Body height 2024-03-22 19:31:[address] [facility] Body weight 2024-03-22 19:31:00 73.936 kg [facility] BMI 2024-03-22 19:31:00 28.87 kg/m2 [facility] Oxygen saturation in Arterial blood by Pulse oximetry 2024-03-22 19:31:00 94 /min [facility] Systolic blood pressure 2024-03-14 18:04:00 159 mm[Hg] [facility] Diastolic blood pressure 2024-03-14 18:04:00 89 mm[Hg] [facility] Heart rate 2024-03-14 18:03:00 74 /min [facility] Body height 2024-03-14 18:03:[address] [facility] Body weight 2024-03-14 18:03:00 73.12 kg [facility] BMI 2024-03-14 18:03:00 28.56 kg/m2 [facility] Oxygen saturation in Arterial blood by Pulse oximetry 2024-03-14 18:03:00 98 /min [facility] Systolic blood pressure 2024-03-07 20:44:00 159 mm[Hg] [facility] Diastolic blood pressure 2024-03-07 20:44:00 89 mm[Hg] [facility] Heart rate 2024-03-07 20:44:00 94 /min [facility] Oxygen saturation in Arterial blood by Pulse oximetry 2024-03-07 20:44:00 96 /min [facility] Respiratory rate 2024-03-07 20:38:00 18 /min [facility] Body height 2024-03-07 20:38:00 160 cm [facility] Body weight 2024-03-07 20:38:00 83.235 kg [facility] BMI 2024-03-07 20:38:00 32.51 kg/m2 [facility] Systolic blood pressure 2024-02-22 18:19:00 155 mm[Hg] [facility] Diastolic blood pressure 2024-02-22 18:19:00 77 mm[Hg] [facility] Heart rate 2024-02-22 18:18:00 83 /min [facility] Body temperature 2024-02-22 18:18:00 36.83 [facility] Respiratory rate 2024-02-22 18:18:00 18 /min [facility] Body height 2024-02-22 18:18:00 160 cm [facility] Body weight 2024-02-22 18:18:00 88.905 kg [facility] BMI 2024-02-22 18:18:00 34.72 kg/m2 [facility] Oxygen saturation in Arterial blood by Pulse oximetry 2024-02-22 18:18:00 95 /min [facility] Systolic blood pressure 2023-07-20 19:21:00 146 mm[Hg] [facility] Diastolic blood pressure 2023-07-20 19:21:00 85 mm[Hg] [facility] Heart rate 2023-07-20 19:01:00 60 /min [facility] Body temperature 2023-07-20 19:01:00 36.72 [facility] Respiratory rate 2023-07-20 19:01:00 18 /min [facility] Body height 2023-07-20 19:01:[address] [facility] Body weight 2023-07-20 19:01:00 91.581 kg [facility] BMI 2023-07-20 19:01:00 35.76 kg/m2 [facility] Oxygen saturation in Arterial blood by Pulse oximetry 2023-07-20 19:01:00 95 /min [facility] Systolic blood pressure 2023-04-30 18:03:00 163 mm[Hg] [facility] Diastolic blood pressure 2023-04-30 18:03:00 79 mm[Hg] [facility] Heart rate 2023-04-30 18:03:00 61 /min Un[facility] Respiratory rate 2023-04-30 18:03:00 18 /min [facility] Body height 2023-04-30 18:03:00 160 cm [facility] Body weight 2023-04-30 18:03:00 92.035 kg [facility] BMI 2023-04-30 18:03:00 35.94 kg/m2 [facility] Oxygen saturation in Arterial blood by Pulse oximetry 2023-04-30 18:03:00 97 /min [facility] Systolic blood pressure 2022-04-24 19:04:00 157 mm[Hg] [facility] Diastolic blood pressure 2022-04-24 19:04:00 93 mm[Hg] [facility] Heart rate 2022-04-24 19:04:00 87 /min Unive [facility] Body temperature 2022-04-24 19:04:00 36.94 Savanna [facility] Body height 2022-04-24 19:04:[address] [facility] Body weight 2022-04-24 19:04:00 92.806 kg [facility] BMI 2022-04-24 19:04:00 35.12 kg/m2 [facility] Oxygen saturation in Arterial blood by Pulse oximetry 2022-04-24 19:04:00 95 /min [facility] Procedures Procedure Date / Time Performed Performing Clinician Source TRANSTHORACIC ECHO (TTE) COMPLETE 2024-03-22 16:49:44 Stella Keita [facility] CBC WITH DIFF 2024-02-22 19:12:00 Nicolle Rondon [facility] [id number] 2023-12-17 00:00:00 ROSMI [facility] [id number] 2023-12-17 00:00:00 ROSMI [facility] [id number] 2023-12-15 00:00:00 SHAJA02 [facility] XR HIPS 2 VW BILATERAL 2023-07-20 19:48:44 Jnaee Cervantes [facility] ASSIGNMENT OF BENEFITS 2023-07-20 18:47:56 Docto r Unassigned, [place] [facility] BI SCREENING TOMOSYNTHESIS BILATERAL 2023-04-30 17:23:27 Daniela Mcqueen [facility] MAMMO GUIDED WIRE LOCALIZATION 2015-11-04 14:00:00 Daniela Mcqueen [facility] OPERATIVE NOTES 2015-11-04 06:01:00 Doctor Unass igned, [place] [facility] HOSPITAL ADMISSION 2015-11-04 06:01:00 Doctor Un assigned, [place] [facility] CONSENT/REFUSAL FOR DIAGNOSIS AND TREATMENT 2015-05-15 20:18:07 Doctor Unassigned, [place] [facility] CONSENT/REFUSAL FOR DIAGNOSIS AND TREATMENT 2015-05-15 20:14:42 Doctor Unassigned, [place] [facility] BI DIAGNOSTIC MAMMOGRAM BILATERAL 2015-05-15 15:10:00 Demetra Mancera [facility] PATIENT QUESTIONNAIRE 2015-05-15 05:01:00 Doctor Unassigned, [place] [facility] Plan of Care Planned Activity Planned Date Details Comments Source Encounters Start Date/Time End Date/Time Encounter Type Admission Type Attending [facility] Facility Care Department Encounter ID Source 2024-12-26 14:30:00 2024-12-26 14:30:00 Outpatient R NICOLLE RONDON [facility] [id number] [facility] 2024-11-14 16:00:00 2024-11-14 16:15:00 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 Lab, Ang - Db Nicolle Rondon Lab, Ang - Db [facility] 1..840.114 350.1.13.10 4.2.7.2.686 [id number] [facility] 2024-11-14 13:30:00 2024-11-14 14:19:18 Outpatient R LORETTA NICOLLE [facility] [id number] [facility] 2024-11-14 13:30:00 2024-11-14 14:19:18 Office Visit Nicolle Rondon [facility] 1..840.114 350.1.13.10 4.2.7.2.686 [id number] [facility] 2024-11-09 00:00:00 2024-11-09 16:19:18 Refill Nicolle Rondon [facility] J[facility]NY[facility] 1..840.114 350.1.13.10 4.2.7.2.686 [id number] 044 [id number] [facility] 2015-05-15 00:00:00 2024-11-04 04:25:58 Orders Only Doctor Unassigned, [place] Doctor Unassigned, [place] [facility] 1..840.114 350.1.13.10 4.2.7.2.686 [id number] [facility] 2015-05-15 00:00:00 2024-11-04 04:25:57 Orders Only Doctor Unassigned, [place] Doctor Unassigned, [place] [facility] ([place] 1.2.840.114 350.1.13.10 4.2.7.2.686 [id number] [facility] 2015-05-15 00:00:00 2024-11-04 04:25:57 Orders Only Doctor Unassigned, [place] Doctor Unassigned, [place] [facility] ([place]) 1.2.840.114 350.1.13.10 4.2.7.2.686 [id number] [id number] [facility] 2015-05-15 00:00:00 2024-11-04 04:25:56 Orders Only Doctor Unassigned, [place] Doctor Unassigned, [place] [facility] ([place] 1.2.840.114 350.1.13.10 4.2.7.2.686 [id number] [id number] [facility] 2015-05-15 00:00:00 2024-11-04 04:25:56 Orders Only Doctor Unassigned, [place] Doctor Unassigned, [place] [facility] ([place]) 1.2.840.114 350.1.13.10 4.2.7.2.686 [id number] [id number] [facility] 2015-05-15 00:00:00 2024-11-04 04:25:56 Orders Only Doctor Unassigned, [place] Doctor Unassigned, [place] [facility] ([place]) 1.2.840.114 350.1.13.10 4.2.7.2.686 [id number] [facility] 2015-11-04 00:00:00 2024-11-04 04:19:47 Orders Only Doctor Unassigned, [place] Doctor Unassigned, [place] [facility] ([place]) 1.2.840.114 350.1.13.10 4.2.7.2.686 [id number] [facility] 2024-10-04 00:00:00 2024-10-04 08:20:[address] [facility] BU[facility] 1.840.114 350.1.13.10 4.2.7.2.686 [id number] [facility] 2024-08-30 00:00:00 2024-08-30 15:53:21 Patient Secure Msg Doctor Unassigned, [place] Doctor Unassigned, [place] [facility] 1.84.114 350.1.13.10 4.2.7.2.686 [id number] 044 [id number] [facility] 2024-08-22 13:30:00 2024-08-22 13:45:00 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 2, Adc Lab Stella Keita 2, Adc Lab [facility] BUILD[facility] 1..840.114 350.1.13.10 4.2.7.2.686 [id number] [facility] 2024-08-22 13:00:00 2024-08-22 13:32:09 Outpatient R NANDA KEITAFORMERLY [facility] [id number] [facility] 2024-08-22 13:00:00 2024-08-22 13:32:09 [facility] 1..840.114 350.1.13.10 4.2.7.2.686 [id number] [facility] 2024-08-21 00:00:00 2024-08-21 17:16:11 Telephone [facility] 1..840.114 350.1.13.10 4.2.7.2.686 [id number] 044 [id number] [facility] 2024-08-14 14:00:00 2024-08-14 14:15:00 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 Lab, Nicolle Chilel Lab, Juan Gallego [facility] 1.84.114 350.1.13.10 4.2.7.2.686 [id number] [facility] 2024-08-14 13:30:00 2024-08-14 13:57:43 Outpatient R NICOLLE RONDON [facility] [id number] [facility] 2024-08-14 13:30:00 2024-08-14 13:57:43 Office Visit Nicolle Rondon [facility] 1.84.114 350.1.13.10 4.2.7.2.686 [id number] [id number] [facility] 2024-07-06 00:00:00 2024-08-11 14:38:[address] [facility] 1.840.114 350.1.13.10 4.2.7.2.686 [id number] [facility] 2024-08-03 00:00:00 2024-08-04 07:07:34 Refill Nicolle Rondon [facility] J[facility]NY[facility] 1..114 350.1.13.10 4.2.7.2.686 [id number] 044 [id number] [facility] 2024-07-07 00:00:00 2024-07-07 11:20:00 Refill Nicolle Rondon [facility]NY[facility] 1.84.114 350.1.13.10 4.2.7.2.686 [id number] [id number] [facility] 2024-05-23 13:00:00 2024-05-23 13:20:00 Office Visit Bossman Nandacanelo [facility] BUILD[facility] 1.2840.114 350.1.13.10 4.2.7.2.686 [id number] [facility] 2024-05-23 13:00:00 2024-05-23 13:00:00 Outpatient R NANDA KEITAFORMERLY [facility] [id number] [facility] 2024-05-18 00:00:00 2024-05-18 13:28:40 Letter (Out) [facility] 1.20.114 350.1.13.10 4.2.7.2.686 [id number] [facility] 2024-05-12 14:15:00 2024-05-12 14:30:00 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 Lab, Nicolle Chilel, Juan Gallego [facility] JONNY?[facility] BU[facility] 1..114 350.1.13.10 4.2.7.2.686 [id number] [facility] 2024-05-12 13:00:00 2024-05-12 13:32:39 Outpatient R NICOLLE RONDON [facility] [id number] [facility] 2024-05-12 13:00:00 2024-05-12 13:32:39 Office Visit Nicolle Rondon [facility] JONNY?[facility] 1.84.114 350.1.13.10 4.2.7.2.686 [id number] [facility] 2024-04-13 00:00:00 2024-04-13 11:14:44 [facility] 1.114 350.1.13.10 4.2.7.2.686 [id number] 059 [id number] [facility] 2024-04-06 00:00:00 2024-04-07 18:57:49 Refill Nicolle Rondon [facility] JONNY?[facility] 1.114 350.1.13.10 4.2.7.2.686 [id number] [facility] 2024-03-10 00:00:00 2024-03-30 09:06:18 Patient [facility] 1.2.840.114 350.1.13.10 4.2.7.2.686 [id number] [facility] 2024-03-29 15:00:00 2024-03-29 15:00:00 Outpatient R CICI LYNCH [facility] [id number] [facility] 2024-02-23 00:00:00 2024-03-25 18:20:02 Patient Secure Msg Doctor Unassigned, [place] [facility] BU[facility] 1.2.840.114 350.1.13.10 4.2.7.2.686 [id number] [facility] 2024-02-23 00:00:00 2024-03-25 18:15:58 Patient Secure Msg Doctor Unassigned, [place] [facility]NY[facility] 1.2.840.114 350.1.13.10 4.2.7.2.686 [id number] [facility] 2024-03-22 10:57:23 2024-03-22 23:59:00 Outpatient R NANDA KEITAFORMERLY [facility] [id number] [facility] 2024-03-22 10:57:23 2024-03-22 23:59:00 Hospital Encounter Bossman [facility] BUILDING 1.2.840.114 350.1.13.10 4.2.7.2.686 [id number] [facility] 2024-03-22 14:40:00 2024-03-22 14:45:28 Office Visit Bossman [facility] BUILDING 1.2.840.114 350.1.13.10 4.2.7.2.686 [id number] [facility] 2024-03-14 13:00:00 2024-03-14 13:32:08 Outpatient R NICOLLE RONDON [facility] [id number] [facility] 2024-03-14 13:00:00 2024-03-14 13:32:08 Office Visit Nicolle Rondon [facility] JONNY?[facility] BU[facility] 1.84.114 350.1.13.10 4.2.7.2.686 [id number] [facility] 2024-03-10 00:00:00 2024-03-13 08:03:36 Telephone Nicolle Rondon [facility] JONNY?[facility] BU[facility] 1.840.114 350.1.13.10 4.2.7.2.686 [id number] [facility] 2024-03-10 13:15:00 2024-03-10 13:30:00 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 Lab, Juan Gallego [facility] 1.84.114 350.1.13.10 4.2.7.2.686 [id number] [facility] 2024-03-10 13:15:00 2024-03-10 13:25:45 Outpatient R BOSSMAN [facility]LY [facility] [id number] [facility] 2024-03-07 15:40:00 2024-03-07 16:09:24 Outpatient R BOSSMAN [facility] [id number] [facility] 2024-03-07 15:40:00 2024-03-07 16:09:24 Office Visit Bossman [facility] BUILDING 1.840.114 350.1.13.10 4.2.7.2.686 [id number] [facility] 2024-02-24 00:00:00 2024-02-25 08:12:14 Telephone [facility] BU[facility] 1.2.840.114 350.1.13.10 4.2.7.2.686 [id number] [facility] 2024-02-23 00:00:00 2024-02-23 11:12:56 Telephone Nicolle Rondon [facility] BU[facility] 1.2.840.114 350.1.13.10 4.2.7.2.686 [id number] [facility] 2024-02-22 00:00:00 2024-02-23 10:43:52 Patient Secure Msg Nicolle Rondon [facility] BUILD[facility] 1.2.840.114 350.1.13.10 4.2.7.2.686 [id number] [facility] 2024-02-23 00:00:00 2024-02-23 08:57:07 Letter (Out) [facility] 1.2.840.114 350.1.13.10 4.2.7.2.686 [id number] [facility] 2024-02-22 00:00:00 2024-02-22 17:00:47 Refill Nicolle Rondon [facility] BUILD[facility] 1.2840.114 350.1.13.10 4.2.7.2.686 [id number] [facility] 2024-02-22 14:00:00 2024-02-22 14:15:00 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 Lab, Juan - Julián Nicolle Rondon [facility] BU[facility] 1.2840.114 350.1.13.10 4.2.7.2.686 [id number] [facility] 2024-02-22 13:00:00 2024-02-22 13:54:34 Outpatient R NICOLLE RONDON [facility] [id number] [facility] 2024-02-22 13:00:00 2024-02-22 13:54:34 Office Visit Nicolle Rondon [facility] 1.2.840.114 350.1.13.10 4.2.7.2.686 [id number] [facility] 2023-12-16 17:55:00 2023-12-24 12:35:00 Inpatient Fern Tovar [facility] REHA [id number] [facility] 2023-12-13 22:03:00 2023-12-16 18:08:00 Inpatient Rah Ramirez HCACL MEDI.01 [id number] [facility] 2023-09-09 09:30:00 2023-09-09 10:14:38 Outpatient R ADDIE AGUILERA CRAIG [facility] [id number] [facility] 2023-09-09 09:30:00 2023-09-09 10:14:38 Ancillary Visit Hafsa Villa Craig L [facility] 1.2.840.114 350.1.13.10 4.2.7.2.686 [id number] [facility] 2023-09-08 11:00:00 2023-09-08 11:45:00 Ancillary Visit Hafsa Villa Craig L [facility] 1.2.840.114 350.1.13.10 4.2.7.2.686 [id number] [facility] 2023-09-02 11:00:00 2023-09-02 11:45:00 Ancillary Visit Hafsa Villa Craig L [place], [facility] 1.2.840.114 350.1.13.10 4.2.7.2.686 [id number] [facility] 2023-08-31 10:15:00 2023-08-31 11:00:00 Ancillary Visit Irais Das [facility] [place] 1.2.840.114 350.1.13.10 4.2.7.2.686 [id number] [facility] 2023-08-24 16:00:00 2023-08-24 16:33:59 Ancillary Visit Samara Cano Craig L [place], [facility] 1.2.840.114 350.1.13.10 4.2.7.2.686 [id number] [facility] 2023-08-20 10:15:00 2023-08-20 11:06:21 Ancillary Visit Hafsa Villa Craig L [place], [facility] 1.2.840.114 350.1.13.10 4.2.7.2.686 [id number] [facility] 2023-08-18 11:00:00 2023-08-18 11:45:00 Ancillary Visit Hafsa Villa Craig [facility] 1.2.840.114 350.1.13.10 4.2.7.2.686 [id number] [facility] 2023-08-18 11:00:00 2023-08-18 11:00:00 Outpatient R ADDIE AGUILERA CRAIG [facility] [id number] [facility] 2023-08-16 11:00:00 2023-08-16 11:00:00 Outpatient R [facility] [id number] [facility] 2023-08-10 09:30:00 2023-08-10 10:23:34 Ancillary Visit Hafsa Villa AguileraAddie leon [facility] BUILDING 1.2840.114 350.1.13.10 4.2.7.2.686 [id number] [facility] 2023-08-04 09:30:00 2023-08-04 10:15:00 Ancillary Visit Hafsa Villa AguileraAddie [facility] BUILD[facility] 1.20.114 350.1.13.10 4.2.7.2.686 [id number] [facility] 2023-07-30 10:15:00 2023-07-30 11:03:11 Ancillary Visit Samara Cano Craig Bienvenido [facility] BUILD[facility] 1.2.114 350.1.13.10 4.2.7.2.686 [id number] [facility] 2023-07-20 14:12:34 2023-07-20 23:59:00 Outpatient R PO CERVANTES [facility] [id number] [facility] 2023-07-20 14:12:34 2023-07-20 23:59:00 Hospital En[facility] Po [facility] 1.2.114 350.1.13.10 4.2.7.2.686 [id number] [facility] 2023-07-20 13:40:00 2023-07-20 15:17:33 Urgent Care Po Cervantes Unknown, Attending [facility]PER[facility] 1.20.114 350.1.13.10 4.2.7.2.686 [id number] [facility] 2023-07-20 00:00:00 2023-07-20 00:00:00 Orders Only Doctor Unassigned, [place] [facility] 1.0.114 350.1.13.10 4.2.7.2.686 [id number] [facility] 2023-04-30 11:47:52 2023-04-30 23:59:00 Hospital Encounter Daniela Mcqueen Johanny [facility] 1..114 350.1.13.10 4.2.7.2.686 [id number] [facility] 2023-04-30 13:00:00 2023-04-30 13:15:00 [facility] 1.114 350.1.13.10 4.2.7.2.686 [id number] [facility] 2023-04-30 13:00:00 2023-04-30 13:00:00 Outpatient R DANIELA MCQUEEN [facility] [id number] [facility] 2023-01-29 00:00:00 2023-01-29 00:00:00 Patient Secure Msg Alyssa Kunz [facility] 1..114 350.1.13.10 4.2.7.2.686 [id number] [facility] 2022-06-29 00:00:00 2022-06-29 00:00:00 Patient Secure Msg Doctor Unassigned, [place] [facility] 1..114 350.1.13.10 4.2.7.2.686 [id number] [facility] 2022-04-25 00:00:00 2022-04-25 00:00:00 Patient Secure Msg Doctor Unassigned, [place] [facility] 1.2.840.114 350.1.13.10 4.2.7.2.686 [id number] [facility] 2022-04-24 13:03:42 2022-04-24 23:59:00 Outpatient R DANIELA MCQUEEN [facility] [id number] [facility] 2022-04-24 13:03:42 2022-04-24 23:59:00 Hospital Encounter Daniela Mcqueen [facility] 1.2.840.114 350.1.13.10 4.2.7.2.686 [id number] [facility] 2022-04-24 14:15:00 2022-04-24 14:30:00 [facility] 1.2.840.114 350.1.13.10 4.2.7.2.686 [id number] [facility] 2022-04-24 14:15:00 2022-04-24 14:15:00 Outpatient R DANIELA MCQUEEN [facility] [id number] [facility] 2022-03-20 00:00:00 2022-03-20 00:00:00 Refill Alyssa Kunz [facility] 1.2.840.114 350.1.13.10 4.2.7.2.686 [id number] [facility] 2022-01-30 00:00:00 2022-01-30 00:00:00 Refill Alyssa Kunz [facility] 1.2.840.114 350.1.13.10 4.2.7.2.686 [id number] [facility] 2021-05-09 00:00:00 2021-05-09 00:00:00 Patient Secure Msg Alyssa Kunz [facility] 1.2.840.114 350.1.13.10 4.2.7.2.686 [id number] [facility] 2021-05-07 00:00:00 2021-05-07 00:00:00 Patient Secure Msg Doctor Unassigned, [place] [facility] 1.2.840.114 350.1.13.10 4.2.7.2.686 [id number] [facility] 2021-04-30 00:00:00 2021-04-30 00:00:00 Letter (Out) Kailyn Cantu [facility] 1.2.840.114 350.1.13.10 4.2.7.2.686 [id number] [facility] 2021-04-30 00:00:00 2021-04-30 00:00:00 Telephone Alyssa Kunz [facility] 1.2.840.114 350.1.13.10 4.2.7.2.686 [id number] [facility] 2021-04-30 00:00:00 2021-04-30 00:00:00 Patient Secure Msg Doctor Unassigned, [place] [facility] 1.2.840.114 350.1.13.10 4.2.7.2.686 [id number] [facility] 2021-04-29 18:30:33 2021-04-29 18:45:33 Laboratory Only Nurse, [facility] P[facility] Assessment [facility] Rah Jiang [facility] 1.2.840.114 350.1.13.10 4.2.7.2.686 [id number] [facility] 2021-04-29 18:30:00 2021-04-29 18:30:00 Outpatient RAH CREWS [facility] [id number] [facility] 2021-04-08 13:00:00 2021-04-08 13:00:00 Outpatient DANIELA NORMAN [facility] [id number] [facility] 2021-04-01 09:17:33 2021-04-01 23:59:00 [facility] 1..114 350.1.13.10 4.2.7.2.686 [id number] [facility] 2021-04-01 00:00:00 2021-04-01 00:00:00 Outpatient R DANIELA MCQUEEN [facility] [id number] [facility] 2021-01-18 00:00:00 2021-01-18 00:00:00 Patient Secure Msg Doctor Unassigned, [place] [facility] [employer] [facility]..114 350.1.13.10 4.2.7.2.686 [id number] [facility] 2021-01-14 00:00:00 2021-01-14 00:00:00 Pre Visit Outreach Scooby Austin [facility] 1.114 350.1.13.10 4.2.7.2.686 [id number] [facility] 2021-01-03 10:55:07 2021-01-03 11:46:59 Nurse Visit Pcp, Medicare Wellness [facility] Alyssa Kunz [facility] 1..114 350.1.13.10 4.2.7.2.686 [id number] [facility] 2021-01-03 11:00:00 2021-01-03 11:00:00 Outpatient R ALYSSA KUNZ [facility] [id number] [facility] 2020-12-24 00:00:00 2020-12-24 00:00:00 Pre Visit Outreach Alyssa Kunz [facility] 1..114 350.1.13.10 4.2.7.2.686 [id number] [facility] 2020-12-20 12:38:06 2020-12-20 12:53:06 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 Pcp-Lab Kunz Alyssa Meeta [facility] 1.2.840.114 350.1.13.10 4.2.7.2.686 [id number] [facility] 2020-12-20 11:16:56 2020-12-20 12:40:04 Office Visit Eric Kunzuel Meeta [facility] 1.2840.114 350.1.13.10 4.2.7.2.686 [id number] [facility] 2020-12-20 11:00:00 2020-12-20 11:00:00 Outpatient R ALYSSA KUNZ [facility] [id number] [facility] 2020-12-20 00:00:00 2020-12-20 00:00:00 Orders Only Doctor Unassigned, [place] [facility] 1.2.840.114 350.1.13.10 4.2.7.2.686 [id number] [facility] 2020-12-11 00:00:00 2020-12-11 00:00:00 Refill Alyssa Kunz [facility] 1.2.840.114 350.1.13.10 4.2.7.2.686 [id number] [facility] 2020-11-27 00:00:00 2020-11-27 00:00:00 Patient Secure Msg Alyssa Kunz [facility] 1.2.840.114 350.1.13.10 4.2.7.2.686 [id number] 044 [id number] [facility] 2020-11-25 00:00:00 2020-11-25 00:00:00 Patient Outreach Srikanth Rogers [facility] 1.2.840.114 350.1.13.10 4.2.7.2.686 [id number] [facility] 2020-11-21 00:00:00 2020-11-21 00:00:00 Refill Alyssa Kunz [facility] 1.2.840.114 350.1.13.10 4.2.7.2.686 [id number] [facility] 2020-08-27 00:00:00 2020-08-27 00:00:00 Refill Alyssa Kunz [facility] 1.2.840.114 350.1.13.10 4.2.7.2.686 [id number] 044 [id number] [facility] 2020-08-19 00:00:00 2020-08-19 00:00:00 Refill Alyssa Kunz [facility] 1.2.840.114 350.1.13.10 4.2.7.2.686 [id number] 044 [id number] [facility] 2020-07-23 00:00:00 2020-07-23 00:00:00 Refill Alyssa Kunz [facility] 1.2.840.114 350.1.13.10 4.2.7.2.686 [id number] 044 [id number] [facility] 2020-07-15 00:00:00 2020-07-15 00:00:00 Refill Alyssa Kunz [facility] 1.2.840.114 350.1.13.10 4.2.7.2.686 [id number] 044 [id number] [facility] 2020-06-21 12:08:08 2020-06-21 12:41:20 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 Pcp-Lab Alyssa Kunz [facility] 1.2.840.114 350.1.13.10 4.2.7.2.686 [id number] [facility] 2020-06-21 10:56:02 2020-06-21 12:09:31 Office Visit Alyssa Kunz E [facility] 1.2.840.114 350.1.13.10 4.2.7.2.686 [id number] 044 [id number] [facility] 2020-06-21 11:00:00 2020-06-21 11:00:00 Outpatient R ALYSSA KUNZ [facility] [id number] [facility] 2020-04-10 09:11:00 2020-04-10 23:59:00 Hospital Encounter [facility] 1.840.114 350.1.13.10 4.2.7.2.686 [id number] [facility] 2020-04-10 09:10:59 2020-04-10 09:10:59 Outpatient R DANIELA MCQUEEN [facility] [id number] [facility] 2020-04-10 09:10:00 2020-04-10 09:10:00 Hospital Encounter [facility] 1..840.114 350.1.13.10 4.2.7.2.686 [id number] [facility] 2020-03-26 09:48:37 2020-03-26 10:03:37 Office Visit Daniela Mcqueen [facility] 1..840.114 350.1.13.10 4.2.7.2.686 [id number] [facility] 2020-03-26 10:00:00 2020-03-26 10:00:00 Outpatient R DANIELA MCQUEEN [facility] [id number] [facility] 2020-03-25 15:00:00 2020-03-25 15:00:00 Outpatient R DAYNA SINGLETON [facility] [id number] [facility] 2020-03-25 11:47:14 2020-03-25 12:07:14 Telemedici ne Visit Alfonso Lucia Madiha A [facility] 1.2840.114 350.1.13.10 4.2.7.2.686 [id number] [id number] [facility] 2020-03-25 00:00:00 2020-03-25 00:00:00 Robert Patiet Jo [facility] 1.2840.114 350.1.13.10 4.2.7.2.686 [id number] [facility] 2020-03-08 13:41:32 2020-03-08 23:59:00 Outpatient DANIELA NORMAN [facility] [id number] [facility] 2020-03-08 13:41:00 2020-03-08 23:59:00 Hospital Encounter Daniela Mcqueen Johanny [facility] 1.840.114 350.1.13.10 4.2.7.2.686 [id number] [facility] 2020-03-08 14:00:00 2020-03-08 14:00:00 Outpatient DANIELA NORMAN [facility] [id number] [facility] 2019-12-14 00:00:00 2019-12-14 00:00:00 Aleah Unger Thea [facility] 1.840.114 350.1.13.10 4.2.7.2.686 [id number] [facility] 2019-06-09 00:00:00 2019-06-09 00:00:00 Thea Pat Jo [facility] 1.2840.114 350.1.13.10 4.2.7.2.686 [id number] [facility] 2019-06-06 00:00:00 2019-06-06 00:00:00 Thea Pat Jo [facility] 1.2840.114 350.1.13.10 4.2.7.2.686 [id number] [facility] 2019-05-29 00:00:00 2019-05-29 00:00:00 Thea Pat [facility] 1.2.840.114 350.1.13.10 4.2.7.2.686 [id number] [facility] 2019-05-27 00:00:00 2019-05-27 00:00:00 Tremayne Verma [facility] 1.2.840.114 350.1.13.10 4.2.7.2.686 [id number] [facility] Results Test Description Test Time Test Comments Results Result Co mments Source [facility] with [id number] 20:44:18* Test Item Value Reference Range Interpretation Comme nts WBC (test code = 6690-2) 6.22 4.30-11.10 RBC (test code = 789-8) 2.71 3.93-5.25 L HGB (test code = 718-7) 8.7 g/dL 11.6-15.0 L HCT (test code = 4544-3) 28.6 % 35.7-45.2 L MCV (test code = 787-2) 105.5 fL 80.6-95.5 H MCH (test code = 785-6) 32.1 pg 25.9-32.8 MCHC (test code = 786-4) 30.4 g/dL 31.6-35.1 L RDW-SD (test code = 23756-4) 69.5 fL 39.0-49.9 H RDW-CV (test code = 788-0) 18.1 % 12.0-15.5 H PLT (test code = 777-3) 208 166-358 MPV (test code = 60308-2) 10.5 fL 9.5-12.9 NRBC/100 WBC (test code = 5929839969) 0.5 0.0-10.0 NRBC x10^3 (test code = 9851892069) 0.03 See_Comment [Automated messa ge] The system which generated this result transmitted reference range: 10*3/?L. The reference range was not used to interpret this result as normal/abnormal. GRAN MAT (NEUT) % (test code = 770-8) 66.5 % IMM GRAN % (test code = 0656388040) 0.50 % LYMPH % (test code = 736-9) 24.0 % MONO % (test code = 5905-5) 6.9 % EOS % (test code = 713-8) 1.6 % BASO % (test code = 706-2) 0.5 % GRAN MAT x10^3(ANC) (test code = 6433072813) 4.14 10*3/uL 1.88-7.09 IMM GRAN x10^3 (test code = 4871347452) 0.03 10*3/uL 0.00-0.06 LYMPH x10^3 (test code = 731-0) 1.49 10*3/uL 1.32-3.29 MONO x10^3 (test code = 742-7) 0.43 10*3/uL 0.33-0.92 EOS x10^3 (test code = 711-2) 0.10 10*3/uL 0.03-0.39 BASO x10^3 (test code = 704-7) 0.03 10*3/uL 0.01-0.07 Lab Interpretation (test code = 60617-3) Abnormal [facility] with [id number] 20:44:18* Test Item Value Reference Range Interpretation Comme nts WBC (test code = 6690-2) 6.22 4.30-11.10 RBC (test code = 789-8) 2.71 3.93-5.25 L HGB (test code = 718-7) 8.7 g/dL 11.6-15.0 L HCT (test code = 4544-3) 28.6 % 35.7-45.2 L MCV (test code = 787-2) 105.5 fL 80.6-95.5 H MCH (test code = 785-6) 32.1 pg 25.9-32.8 MCHC (test code = 786-4) 30.4 g/dL 31.6-35.1 L RDW-SD (test code = 67823-7) 69.5 fL 39.0-49.9 H RDW-CV (test code = 788-0) 18.1 % 12.0-15.5 H PLT (test code = 777-3) 208 166-358 MPV (test code = 21552-5) 10.5 fL 9.5-12.9 NRBC/100 WBC (test code = 7845350138) 0.5 0.0-10.0 NRBC x10^3 (test code = 9758239562) 0.03 See_Comment [Automated messa ge] The system which generated this result transmitted reference range: 10*3/?L. The reference range was not used to interpret this result as normal/abnormal. GRAN MAT (NEUT) % (test code = 770-8) 66.5 % IMM GRAN % (test code = 7064465374) 0.50 % LYMPH % (test code = 736-9) 24.0 % MONO % (test code = 5905-5) 6.9 % EOS % (test code = 713-8) 1.6 % BASO % (test code = 706-2) 0.5 % GRAN MAT x10^3(ANC) (test code = 0354369199) 4.14 10*3/uL 1.88-7.09 IMM GRAN x10^3 (test code = 6443155653) 0.03 10*3/uL 0.00-0.06 LYMPH x10^3 (test code = 731-0) 1.49 10*3/uL 1.32-3.29 MONO x10^3 (test code = 742-7) 0.43 10*3/uL 0.33-0.92 EOS x10^3 (test code = 711-2) 0.10 10*3/uL 0.03-0.39 BASO x10^3 (test code = 704-7) 0.03 10*3/uL 0.01-0.07 Lab Interpretation (test code = 02714-4) [facility] Test Item Value Reference Range Interpretation Comments SURGICAL (test code = SR) RUN DATE: 01/03/24 [place] - LAB PAGE 1 RUN TIME: 1325 Specimen Inquiry RUN USER: INTERFACE PATIENT: JUSTYNA GAMING LOC: [facility] U #: [id number] AGE/SX: 73/F ROOM: [facility] [place] RE12/13/23REG DR: Rah Guzman MD : 49 BED: 1 DIS: 12/16/23 STATUS: DIS IN TLOC: SPEC #: [id number] RECD: 12/16/23-1057 STATUS: DEBBI REQ #: [id number] [place]: 12/15/23- SUBM DR: Rah Guzman MD ENTERED: 12/16/23-1099 SP TYPE: SURGICAL OTHR DR: No Primary or Family Physician Self Referred Blanco Worrell MD,Dhatri Fern Gray MD, James C MDORDERED: 22694/2, 67550, 48930, 66973, IHC ADD 60753/6, ANATOMIC SPEC COPIES TO: No Primary or Family Physician Self Referred Blanco oWrrell MD [address] [facility] [address] [place] [address] Leanna Mosher MD [address] [place] [address] Fern Mata MD [address] [place] [address] Alirio Hurtado MD [address] [facility] [place] [address] Rah Guzman MD [address] [place] [address] PROCEDURES: 78892 (12/16/23-1099) 74598 (12/16/23-1099) 47155 (12/16/23-1099) 71617 (12/23/23-1218) IHC ADD 09550 (12/23/23) CONTINUED ON NEXT PAGE RUN DATE: 01/03/24 [place] - LAB PAGE 2 RUN TIME: 1325 Specimen Inquiry RUN USER: INTERFACE SPEC #: [id number] PATIENT: JUSTYNA GAMING #[id number] (Continued) - TISSUES: A. FEMORAL HEAD FRACTURE - RIGHT B. NECK - RIGHT FEMORAL ADDENDUM FINDINGS Addendum #3 Entered: 12/31/23 ADDENDUM TO REPORT HER2 FISH TESTING PERFORMED ENTIRELY BY [employer]: HER2 BY FISH: NEGATIVE. 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 THEIMMUNOPROFILE IS CONSISTENT WITH BREAST PRIMARY. THE DIAGNOSIS IS AMENDED BELOW, THEFINDINGS ARE DISCUSSED WITH DR MOSHER ON 12/27/23: 1. Femoral head, right, submitted: Tumor present with extensive necrosis. 2. Femoral neck, right, submitted: Metastatic adenocarcinoma, immunoprofile consistentwith breast primary, ancillary studies to follow. PLEASE SEE ORIGINAL REFERENCE LAB REPORT FOR DETAILS Addendum Signed SIGNATURE ON FILE Lyndon Cordero 12/27/2319 Addendum #1 Entered: 12/24/231148 Breast Biomarker Reporting Template 2020 Version 1.4.1.1 Test(s) Performed (select all that apply) Estrogen Receptor (ER) Status: POSITIVETumor Stained: 97%Intensity: 3+Sallie Score: 8Internal Control: Present,PositiveVendor: [employer]. CONTINUED ON NEXT PAGE RUN DATE: 01/03/24 [facility] PAGE 3 RUN TIME: 1325 Specimen Inquiry RUN USER: INTERFACE SPEC #: [id number] PATIENT: JUSTYNA GAMING #[id number] (Continued) - ADDENDUM FINDINGS (Continued) Clone: 6F11. Progesterone Receptor (PgR) Status: POSITIVETumor Stained: 92%Intensity: 3+Sallie Score: 8Internal Control: Present,PositiveVendor: [employer].Clone: PgR 1294. Predictive marker ER/NH technical [facility] [address] [facility], [address], [place] [address]. HER2 by Immunohistochemistry: HER2 Breast:EQUIVOCAL/LOWScore: 2+performed professional and technical by [facility], see outside reports. HER2 by FISH: Pending HER2 technical and professional Interpretation performed by [facility] [address], [address], [place] [address], see outside reports. PLEASE SEE ORIGINAL REFERENCE LAB REPORT FOR DETAILS Addendum Signed SIGNATURE ON FILE Lyndon Cordero 12/27/[address] CORDERO discussed the case with DR MOSHER on 12/22/23 at 1219. CLINICAL HISTORY SAME FINAL DIAGNOSIS 1. Femoral head, right, submitted: Tumor present with extensive necrosis. 2. Femoral neck, right, submitted: Metastatic adenocarcinoma, immunoprofile consistentwith lung primary, ancillary studies to follow. CONTINUED ON NEXT PAGE RUN DATE: 01/03/24 [place] - LAB PAGE 4 RUN TIME: 1325 Specimen Inquiry RUN USER: INTERFACE SPEC #: [id number] PATIENT: JUSTYNA GAMING #[id number] (Continued) - GROSS DESCRIPTION 1. Received in formalin labeled right femoral head is a 3.5 x 3.5 x 3 cm right femoralhead, submitted for decalcification. Tissue is submitted (A) post decalcification. 2. Received in formalin labeled right femoral neck is a 4.2 cm aggregate of fragmentedbone tissue, portions of the tissue are submitted (B) for decalcification. Technical component performed at [facility],[address] [place] [address], [place] [address] Unless gross only, the diagnosis is based upon microscopic examination.Immunohistochemistry: This test was developed and its performance characteristicsdetermined by this laboratory. It has not been approved nor does it need approvalby the [place] FDA. Appropriate positive and negative controls are reviewed and judgedto be acceptable for performedimmunohistochemistry and/or special stains. This laboratoryis certified under the Clinical Laboratory Improvement Amendments (CLIA-88) as qualified toperform high complexity clinical laboratory testing. MICROSCOPIC DESCRIPTION Sections of the femoral head resection show an atypical proliferation of epithelioid cellswith extensive necrosis seen within the femoral head. The additional fragment fracturetissue also shows atypical epithelioid cells forming nests. The additional fracturefragments are stained, the initial H E stains raise a differential requiring supportingspecial stains and/or immunostains, the controls are appropriate. The cells are positivefor CK7, GATA3, and ER; negative for CK20, GCDFP, TTF-1, and CDX2. CLINICAL INFORMATION RIGHT FEMUR FRACTURE Signed yLndon Cordero 12/23/23 1239 END OF REPORT COMPREHENSIVE METABOLIC [id number] 06:52:00* Test Item Value Reference Range Interpretation [...] calculation forGFR is based on the CKD-EPI (2020) calculation. This formulais race indifferent and is [...] ALKP) 157 IUnit/L 20-125 H CBC W/AUTO [id number] 06:41:00* Test Item Value Reference Range Interpretation [...] 0.00 x10 3/uL 0.0-0.1 N COMPREHENSIVE METABOLIC [id number] 05:13:00* Test Item Value Reference Range Interpretation [...] = ALKP) 159 IUnit/L 20-125 H CA27-29, [id number] 05:13:00* Test Item Value Reference Range Interpretation Comme nts CA27-29, BIOMIRA (test code = AU8906) 51.4 U/mL 0.0-38.6 A Siemens OneTouchEMRauZapproved Immunochemiluminometric Methodology (ICMA)Values obtained with different assay methods or kits cannotbe used interchangeably. Results cannot be interpreted asabsolute evidence of the presence or absence of malignantdisease.Performed At: [facility] [id number] Faria MD Ph:[phone] CA [id number] 10:08:00* Test Item Value Reference Range Interpretation Comme [facility] CA 15-3 (test code = CA15) 35.8 U/mL 0.0-25.0 H [facility] Electrochemiluminescence Immunoassay(ECLIA)Values obtained with different assay methods or kits cannotbe used interchangeably. Results cannot be interpreted asabsolute evidence of the presence or absence of malignantdisease.Performed At: [facility] [id number] Faria MD Ph:[phone] CBC W/AUTO [id number] 07:04:00* Test Item Value Reference Range Interpretation [...] NRBC#) 0.00 x10 3/uL 0.0-0.1 N VITAMIN [id number] 07:04:00* Test Item Value Reference Range Interpretation Comme nts VITAMIN B12 (test code = VITB12) 899 pg/mL 193-986 N Indication for Test: Osteopenia/Bone Dis RiskFOLIC [id number] 07:04:00* Test Item Value Reference Range Interpretation Comme nts FOLIC ACID (test code = FOL) 8.2 ng/mL 3.1-17.5 N Indication for Test: Osteopenia/Bone Dis RiskVITAMIN D 94-[id number] 07:04:00* Test Item Value Reference Range Interpretation Comme nts VITAMIN D 25-HYDROXY (test c ode = VITD25) 37.7 ng/mL 30-100 N Indication for Test: Osteopenia/Bone Dis RiskTHYROID STIMULATING HORMONE 2023-12-17 07:03:00* Test Item Value Reference Range Interpretation Comme nts THYROID STIMULATING HORMONE (test code = TSH) 4.79 0.42-5.47 N Result s in sunil-International Units/mL COVID 19 Asymptomatic IH [id number] 12:47:00* Test Item Value Reference Range Interpretation [...] moderate, high or waivedcomplexity tests. BASIC METABOLIC [id number] 07:18:00* Test Item Value Reference Range Interpretation [...] calculation forGFR is based on the CKD-EPI (2021) calculation. This formulais race indifferent and is the recommended formula for GFRby the National Kidney Foundation for Adults.The GFR will not calculate if the sex is unknown or if thepatient's age is <18 years. CREATININE (test code = CREAT) 1.4 mg/dL 0.6-1.3 H CALCIUM (test code = CA) 8.3 mg/dL 8.0-10.5 N CBC W/AUTO [id number] 06:57:00* Test Item Value Reference Range Interpretation [...] 0.00 x10 3/uL 0.0-0.1 N COMPREHENSIVE METABOLIC [id number] 07:25:00* Test Item Value Reference Range Interpretation [...] ALKP) 158 IUnit/L 20-125 H CBC W/AUTO [id number] 06:14:00* Test Item Value Reference Range Interpretation [...] = NRBC#) 0.00 x10 3/uL 0.0-0.1 N [id number] 14:50:00* Test Item Value Reference Range Interpretation Comme nts CREATININE (test code = CREAT) 1.2 mg/dL 0.6-1.3 N COMMENTS: Stat creatinine if not already performedPTH INTACT [id number] 04:32:00* Test Item Value Reference Range Interpretation Comme nts PARATHYROID HORMONE INTACT ( test code = PARAI) 11.5 pg/mL 14.0-72.0 L PROTHROMBIN [id number] 23:39:00* Test Item Value Reference Range Interpretation [...] Infarction (to prevent recurrent infarct). COMPREHENSIVE METABOLIC [id number] 23:38:00* Test Item Value Reference Range Interpretation [...] ALKP) 167 IUnit/L 20-125 H CBC W/AUTO [id number] 23:15:00* Test Item Value Reference Range Interpretation [...] = NRBC#) 0.00 x10 3/uL 0.0-0.1 N MAMMO GUIDED WIRE [id number] 18:11:00 *.*.*.*.*.*.*.*.*.*.*.*.*.*FINAL*.*.*.*.*.*.*.*.*.*.*.*.*.*.*History: RIGHT BREAST: Focal asymmetrycentrally at a distance of 7 cm from the nipple, with biopsy marker clip displaced 1.5 cm inferiorly from the focal asymmetry, compatible with biopsy proven tubular carcinoma. The focal asymmetry hasonly increased by 4 mm mammographically in comparison with prior mammogram dated 02/16/2014. Findings are consistent with the known malignancy. BI-RADS category 6. Take appropriate action.These findings and recommendations were discussed in detail with the patient at the conclusion of today's examination. The procedure was explained to the patient including benefits and alternatives. The risks, in cluding but not limited to infection and bleeding, were reviewed and the patient agreed to undergo the procedure, signing the consent form. Right mammographic (crosshair) localization for surgical excision:The patient's right breast was positioned and images of the focal asymmetry in the central region at a middle depth at a distance of 7 cm from the nipple were obtained. The breast was prepped for the procedure and a 19.5 cm wire was placed in the focal asymmetry with 10 cm OUT of the breast and 9.5 cm IN the breast. ?The tip of the wire was 1.5 cm beyond the tip of the asymmetry and post procedure films showed the wire to be in appropriate position. The patient experienced no complications during the procedure.Specimen radiograph shows the wire, clip, and focal asymmetry within the specimen. ?Personally interpreted by: LISA ROMAN MD /Signed/ LISA ROMAN MDHendrick Medical Center BrownwoodDIGITAL DIAGNOSTIC [id number] 14:16:00 *.*.*.*.*.*.*.*.*.*.*.*.*.*FINAL*.*.*.*.*.*.*.*.*.*.*.*.*.*.*History: Patient has known bilateral biopsy proven cancers in 2013 (left: infiltrative ductal carcinoma (IDC), right: invasive tubular carcinoma).Computer-aided detection(CAD)utilized.Comparison: Outside institution mammogram and breast ul trasound 02/16/2014. Left Breast Findings:There are scattered fibroglandular densities (25% - 50% fibroglandular). A high density irregular mass with spiculated margins is present at 1 o'clock at a distance of 3 cm from the nipple consistent with the known biopsy proven IDC. The mammographic mass demonstrates interval increase in density and now measures 47 x 40 x 22 mm (AP x SI x ML) with the anterior aspect only 8 mm from the nipple, previously 37 x 39 x 20 (AP x SI x ML).Right Breast Findings:There are scattered fibroglandular densities (25% - 50% fibroglandular). A focal asymmetry is present centrally at a distance of 7 cm from the nipple with adjacent biopsy marker clip consistent withthe known biopsy proven tubular carcinoma. The focal asymmetry demonstrates interval increase in density and now measures 18 mm, previously 9 mm. The biopsy marker clip is displaced 1.5 cm inferiorlyfrom the focal asymmetry. PEPE NORMAN MD ?Personally interpreted by: NATALIA MAURICE MD /Signed/ NATALIA MAURICE MD [facility] Notes Date/Time Note Provider Source 2024-11-14 16:00:00 Images from the original note were not included. Venipuncture collection performed by clean technique on the right wrist. Total of 2 attempts were made. Slight pressure and a bandage/dressing were applied to the site(s). The patient experienced no complications. The following specimens were processed according to instructions and sent to [facility] laboratories per lab order on 11/14/2024 : LT BLUE SST 2RST 2LT GREEN RED LAV 1 PPT DK GREEN (LiHep) 1 DK GREEN (SodH) ZHANG DK BLUE (K2) DK BLUE (S) ACD Blood Culture NIPT/NTD T [facility] 2024-11-09 16:18:39 Images from the original note were not included. Notes: 08/14/24 Last Refilled: [id number] - [place], [place] - [address] AT [address] Recent Visits Date Type Provider Dept 08/14/24 Office Visit Nicolle Rondon FNP [facility] 05/12/24 Office Visit Nicolle Rondon FNP [facility] 03/14/24 Office Visit Nicolle Rondon FNP [facility] 02/22/24 Office Visit Nicolle Rondon FNP [facility] Showing recent visits within past 540 days with a meds authorizing provider and meeting all other requirements Future Appointments Date Type Provider Dept 11/14/24 Appointment Nicolle Rondon FNP [facility] Showing future appointments within next 150 days with a meds authorizing provider and meeting all other requirements gabapentin 100 mg capsule Sig: Take 1 capsule by mouth 2 (two) times daily as needed for Pain (scale 4-6). Disp: 180 capsule Refills: 0 Start: 11/09/2024 Class: eRX For: Pain of right hip Last ordered: 2 months ago (08/14/2024) by JOSHUA Rodas [facility]2011/09/2024 03:31 PM Protocol Details Manual Review: Verify no changes in dose in the last 3 months Valid encounter within last 12 months To be filled at: [id number] - [place], [place] - [address] AT [address] [facility] 2024-10-04 08:16:29 Refill requested for spironolactone 25 mg JORDAN 08/22/2024 "Due to rising BUN, creatinine and potassium, stop spironolactone." [facility] Haylee Cook RN [facility] 2024-10-04 07:54:41 Images from the original note were not included. Patients pharmacy is requesting for this medication to be refilled but I do not see this In their chart. Please advise, thank you. [facility] Felicitas Go [facility] 2024-08-22 13:30:00 Images from the original note were not included. Venipuncture collection performed by clean technique on the left anticubitus. Total of 1 attempts were made. Slight pressure and a bandage/dressing were applied to the site(s). The patient experienced no complications. The following specimens were processed according to instructions and sent to [facility] laboratories per lab order on 08/22/2024 : LT BLUE SST 2 RED LAV 1 PPT DK GREEN (LiHep) DK GREEN (SodH) ZHANG DK BLUE (K2) DK BLUE (S) ACD Blood Culture NIPT/NTD [facility] 2024-08-21 17:15:01 I sent increased dosage of levothyroxine let recheck in [address] the orders. Just have her come in for labs [facility] 2024-08-14 14:00:00 Images from the original note were not included. Venipuncture collection performed by clean technique on the right anticubitus. Total of 1 attempts were made. Slight pressure and a bandage/dressing were applied to the site(s). The patient experienced no complications. The following specimens were processed according to instructions and sent to [facility] laboratories per lab order on 08/14/2024 : LT BLUE SST 2 RED LAV 1 PPT DK GREEN (LiHep) DK GREEN (SodH) ZHANG DK BLUE (K2) DK BLUE (S) ACD Blood Culture NIPT/NTD [facility] 2024-08-03 14:46:25 Last Refilled: Disp Refills Start End ALAN levothyroxine 50 mcg tablet 30 tablet 0 07/07/2024 -- -- Sig: Take 1 tablet by mouth every morning. On empty stomach. Sent to pharmacy as: levothyroxine 50 mcg tablet (SYNTHROID) Class: eRX Route: Oral Order: [id number] Date/Time Signed: 07/07/2024 11:19 E-Prescribing Status: Receipt confirmed by pharmacy (07/07/2024 11:20 AM CDT) Notes: Please review and fill if appropriate Recent Visits Date Type Provider Dept 05/12/24 Office Visit Nicolle Rondon FNP [facility] 03/14/24 Office Visit Nicolle Rondon FNP [facility] 02/22/24 Office Visit Nicolle Rondon FNP [facility] Showing recent visits within past 540 days with a meds authorizing provider and meeting all other requirements Future Appointments Date Type Provider Dept 08/14/24 Appointment Nicolle Rondon FNP [facility] Showing future appointments within next 150 days with a meds authorizing provider and meeting all other requirements 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 on 05/12/2024 Component Date Value FOLATE SER 05/12/2024 7.9 IRON 05/12/2024 99 TSH 05/12/2024 6.00 (H) NT-proBNP 05/12/2024 202 TOTAL BILI 05/12/2024 1.2 (H) BILI UNCON 05/12/2024 0.5 BILI CONJ 05/12/2024 0.0 T PROTEIN 05/12/2024 7.5 ALBUMIN 05/12/2024 4.2 ALK PHOS 05/12/2024 166 (H) ALTv 05/12/2024 29 AST(SGOT) 05/12/2024 59 (H) T3 05/12/2024 122.0 FREE T4 05/12/2024 0.85 Hospital Outpatient Visit on 03/22/2024 Component Date Value Height 03/22/2024 63 Weight 03/22/2024 161 Systolic BP 03/22/2024 151 Diastolic BP 03/22/2024 77 Heart Rate 03/22/2024 64 EF(Teich) 03/22/2024 53.70 LVIDD 03/22/2024 4.60 LVIDS 03/22/2024 3.30 Left Ventricular End Sys* 03/22/2024 45.1 Left Ventricular End Donna* 03/22/2024 97.3 IVS 03/22/2024 1.10 LVPWD 03/22/2024 1.10 LVOT diameter 03/22/2024 1.93 LVOT area 03/22/2024 2.90 FS 03/22/2024 28 LA size 03/22/2024 4.6 RVOT Proximal Diameter 03/22/2024 3.20 ACS 03/22/2024 2.11 Ao root diam 03/22/2024 2.90 Aortic root 03/22/2024 2.9 Ao root annulus 03/22/2024 2.9 PW 03/22/2024 1.10 EF - 2D 03/22/2024 53.70 Interventricular Septum * 03/22/2024 1.10 BSA 03/22/2024 1.76 TR Peak Aria 03/22/2024 290.4 Triscuspid Valve Regurgi* 03/22/2024 33.7 E wave decelartion time 03/22/2024 0.39 MV Peak E Aria 03/22/2024 71.3 MV Peak A Aria 03/22/2024 105.9 E/A ratio 03/22/2024 0.67 MV Prop V 03/22/2024 27.90 LVOT stroke volume 03/22/2024 86.30 LVOT peak aria 03/22/2024 127.9 LVOT mn grad 03/22/2024 3.5 AV LVOT peak gradient 03/22/2024 6.5 LVOT peak VTI 03/22/2024 29.6 LV V1 mean 03/22/2024 88.50 MR max PG 03/22/2024 63.00 MR max aria 03/22/2024 396.90 Mr max aria 03/22/2024 396.9 Aortic valve mean veloci* 03/22/2024 106.9 Ao peak aria 03/22/2024 173.2 Ao VTI 03/22/2024 38.4 AV area by cont VTI 03/22/2024 2.3 AV area peak aria 03/22/2024 2.2 Ao max PG 03/22/2024 12.00 AV peak gradient 03/22/2024 12.0 AV valve area 03/22/2024 2.25 AV mean gradient 03/22/2024 5.3 Office Visit on 03/14/2024 Component Date Value WBC 05/12/2024 4.56 RBC 05/12/2024 3.86 (L) HGB 05/12/2024 11.2 (L) HCT 05/12/2024 35.3 (L) MCV 05/12/2024 91.5 MCH 05/12/2024 29.0 MCHC 05/12/2024 31.7 RDW-SD 05/12/2024 50.6 (H) RDW-CV 05/12/2024 15.2 PLT 05/12/2024 182 MPV 05/12/2024 10.9 NRBC/100 WBC 05/12/2024 0.0 NRBC x10 3 05/12/2024 <0.01 GRAN MAT (NEUT) % 05/12/2024 74.4 IMM GRAN % 05/12/2024 0.40 LYMPH % 05/12/2024 14.3 MONO % 05/12/2024 8.3 EOS % 05/12/2024 2.2 BASO % 05/12/2024 0.4 GRAN MAT x10 3 (ANC) 05/12/2024 3.39 IMM GRAN x10 3 05/12/2024 <0.03 LYMPH x10 3 05/12/2024 0.65 (L) MONO x10 3 05/12/2024 0.38 EOS x10 3 05/12/2024 0.10 BASO x10 3 05/12/2024 <0.03 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 on 03/10/2024 Component Date Value NT-proBNP 03/10/2024 1,590 (H) NA 03/10/2024 137 K 03/10/2024 3.8 CL 03/10/2024 100 CO2 TOTAL 03/10/2024 27 AGAP 03/10/2024 10 BUN 03/10/2024 27 (H) GLUCOSE 03/10/2024 94 CREATININE 03/10/2024 0.67 CALCIUM 03/10/2024 9.7 eGFR 03/10/2024 91.8 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 on 02/22/2024 Component Date Value NA 02/22/2024 138 K 02/22/2024 3.5 CL 02/22/2024 105 CO2 TOTAL 02/22/2024 29 AGAP 02/22/2024 4 BUN 02/22/2024 21 GLUCOSE 02/22/2024 96 CREATININE 02/22/2024 0.71 TOTAL BILI 02/22/2024 1.0 CALCIUM 02/22/2024 9.1 T PROTEIN 02/22/2024 5.9 (L) ALBUMIN 02/22/2024 3.2 (L) ALK PHOS 02/22/2024 230 (H) ALTv 02/22/2024 18 AST(SGOT) 02/22/2024 37 eGFR 02/22/2024 89.4 HGB A1C 02/22/2024 4.4 TSH 02/22/2024 7.64 (H) T3 02/22/2024 118.0 FREE T4 02/22/2024 0.84 NT-proBNP 02/22/2024 2,420 (H) Office Visit on 02/22/2024 Component Date Value WBC 02/22/2024 6.22 RBC 02/22/2024 2.71 (L) HGB 02/22/2024 8.7 (L) HCT 02/22/2024 28.6 (L) MCV 02/22/2024 105.5 (H) MCH 02/22/2024 32.1 MCHC 02/22/2024 30.4 (L) RDW-SD 02/22/2024 69.5 (H) RDW-CV 02/22/2024 18.1 (H) PLT 02/22/2024 208 MPV 02/22/2024 10.5 NRBC/100 WBC 02/22/2024 0.5 NRBC x10 3 02/22/2024 0.03 GRAN MAT (NEUT) % 02/22/2024 66.5 IMM GRAN % 02/22/2024 0.50 LYMPH % 02/22/2024 24.0 MONO % 02/22/2024 6.9 EOS % 02/22/2024 1.6 BASO % 02/22/2024 0.5 GRAN MAT x10 3 (ANC) 02/22/2024 4.14 IMM GRAN x10 3 02/22/2024 0.03 LYMPH x10 3 02/22/2024 1.49 MONO x10 3 02/22/2024 0.43 EOS x10 3 02/22/2024 0.10 BASO x10 3 02/22/[address] [facility] Amber Ewing RN [facility] 2024-07-07 10:51:46 Patient requesting a refill of: Medication: LEVOTHYROXINE Dose: 50 mg Route: refill Quantity: 30 Pharmacy: [facility]/pharmacy #[id number] AT [address] [address] Last appt.: 05/12 Next appt.: 08/14 [facility] 2024-07-06 08:49:54 Images from the original note were not included. [facility] 2024-07-06 08:47:40 Images from the original note were not included. Chiquis Gaming is a 74 year old female Received refill request from pharmacy . Please advise . [facility] 2024-05-12 14:15:00 Images from the original note were not included. Venipuncture collection performed by clean technique on the right anticubitus. Total of 1 attempts were made. Slight pressure and a bandage/dressing were applied to the site(s). The patient experienced no complications. The following specimens were processed according to instructions and sent to [facility] laboratories per lab order on 05/12/2024 : LT BLUE SST 2 RED LAV 1 PPT DK GREEN (LiHep) DK GREEN (SodH) ZHANG DK BLUE (K2) DK BLUE (S) ACD Blood Culture NIPT/NTD [facility] 2024-04-13 11:12:50 Received 90 day request for Spironolactone, meets ambulatory guidelines, sent to [place] [address] [place] [address] [facility] [address] [facility] 2024-04-11 09:45:00 Pharmacy sent a fax requesting a 90 day prescription request for Spironolactone 25 MG Tablet and Furosemide 20 MG Tablet. Please advise. Kristen Cornell [facility] 2024-04-06 15:36:29 Please review and sign if appropriate: *Requesting 90 day refill Last office visit: 03/14/24 Next office visit: 05/05/24 Requested Prescriptions Pending Prescriptions Disp Refills DULOXETINE 20 mg capsule [Pharmacy Med Name: DULOXETINE HCL DR 20 MG CAP] 90 capsule 1 Sig: TAKE 1 CAPSULE BY MOUTH EVERYDAY AT BEDTIME Last refill date: 03/14/24 Notes: Anxiety and depression (primary encounter diagnosis) Comment: chronic stable Plan: DULoxetine 20 mg capsule Juliann Rascon LVN [facility] 2024-03-30 09:06:08 Results discussed during office visit Haylee Cook RN [facility] 2024-03-13 08:25:59 Patient notified via private, detailed voicemail to keep her upcoming appt 03/14/24 with Nicolle Rondon NP per the provider. Advised to call back if she has any questions or concerns. Ilsa Rosales LVN 03/13/2024 8:26 AM Ilsa Rosales SHOTWELD OPERATOR [facility] 2024-03-13 08:02:34 Yes I recommend keeping follow up apt, I want to make sure she has everything set up that is needed [facility] 2024-03-10 15:41:54 Chiquis Gaming is a 73 year old female Pt is calling stating that she has an appointment on 03/14 with Nicolle Rondon. Pt states her cardiologists is going to be monitoring her medication Lasix. Pt is asking if she still needs this appointment on 03/14. Please advise. [phone] (home) Anjelica Talbot [facility] 2024-03-10 13:15:00 Images from the original note were not included. Only here for Dr Keita's labs per patient request. Venipuncture collection performed by clean technique on the right anticubitus. Total of 1 attempts were made. Slight pressure and a bandage/dressing were applied to the site(s). The patient experienced no complications. The following specimens were processed according to instructions and sent to [facility] laboratories per lab order on 03/10/2024 : LT BLUE SST 1 RED LAV PPT DK GREEN (LiHep) DK GREEN (SodH) ZHANG DK BLUE (K2) DK BLUE (S) ACD Blood Culture NIPT/NTD [facility] 2024-02-29 10:24:03 Followed up with patient. She reports that she is not having headaches. I relayed the recommendations to her per JOSHUA Rodas. She voiced understanding. Amber Ewing RN [facility] 2024-02-25 08:10:22 Pt has apt with Dr. Pompa on 03/07 please keep apt, We need to try to continue with lasix , can break in half and take the second half around noon. The lasix is going help pull of fluids [facility] 2024-02-24 15:16:22 Please call and schedule follow up with Nicolle Rondon per Dr. Payne note. Ml Rosado RN [facility] 2024-02-24 15:00:45 Good ER precautions, Follow uo with Ms Rondon in the nest few days. FM-FAMILY MEDICINE STAFF [facility] 2024-02-24 14:53:12 Patient states she took lasix at 0900 this AM and has had a headache ever since. Patient states she isn't sure if that is what is the cause but the only thing different. Patient rates the pain with COHEN at 4/10 and states it is getting better. Home health nurse took BP about an hour ago 176/89 HR 57. Patient rechecked pressure 172/92 HR 100. Patient denies dizziness, changes in vision, chest pain, palpitations or shortness of breath. Patient states she has asthma and had to use inhaler but no current concerns with breathing. ER precautions given for worsening headache, changes in vision, CP or SOB. Patient verbalizes understanding. Please review and advise. T [facility] 2024-02-24 14:33:47 Please advise or ask provider in clinic today. [facility] 2024-02-24 14:30:14 Chiquis Gaming is a 73 year old female Pt's Nurse with [facility] is calling stating pt has been experiencing a headache since taking her Furosemide medication this morning, 02/24/24, and nurse also stated pt's latest blood pressure reading being 176/89 with a heart rate of 57 BPM. Please contact pt at [phone] (home) Sheldon Real [facility] 2024-02-23 11:25:30 Patient viewed on My Chart. A my chart message has been sent to patient with the results/recommendations per the provider. T [facility] 2024-02-23 11:11:40 Repeat CBC in 6 weeks Increase iron to bid if pt is able to tolerate and see Oncology/hematology as planned [facility] 2024-02-23 10:36:57 Contacted patients daughter to clarify. Pts daughter stated she would purchase inhaler spacer herself and owuld follow up with cardio and gi. Pt schedule on for f/u visit. T [facility] 2024-02-22 16:58:14 What does insurance perfer ? We will start lasix 20mg daily Needs to see Cardio ROSA please give ER precautions for SOB or chest pain. RTO in 2 weeks. T [facility] 2024-02-22 14:58:24 Pharmacy comment: Alternative Requested:NOT COVERED BY HER INSURANCE. PLEASE SEND AN ALTERNATIVE OR DO A PRIOR AUTHORIZATION. Ilsa Rosales LVN [facility] 2024-02-22 14:00:00 Images from the original note were not included. Venipuncture collection performed by clean technique on the right anticubitus. Total of 1 attempts were made. Slight pressure and a bandage/dressing were applied to the site(s). The patient experienced no complications. The following specimens were processed according to instructions and sent to [facility] laboratories per lab order on 02/22/2024 : LT BLUE SST 2 RED LAV 2 PPT DK GREEN (LiHep) DK GREEN (SodH) ZHANG DK BLUE (K2) DK BLUE (S) ACD Blood Culture NIPT/NTD [facility] 2023-12-24 13:48:00 [facility] ([facility]) Rehab Discharge Summary REPORT#:[id number] REPORT STATUS: Signed REPORT INITIALIZATION DATE:12/24/23 TIME: 1348 PATIENT: JUSTYNA GAMING UNIT #: [id number] ROOM/BED: [place] [address] : 49 AGE: 73 SEX: F ATTEND: Fern Mata MD ADM AUTHOR: Haylee Hamilton PA-C REPT SERVICE DT/TIME: 12/24/23 9898 * ALL edits or amendments must be made on the electronic/computer document * Med Rec Med Rec Discharge meds: Stop taking the following medications: ENOXAPARIN (LOVENOX) 30 MG/0.3 ML DISP.SYRIN 30 MILLIGRAM SUBCUTANEOUS EVERY 12 HOURS. Days = 30 LOSARTAN (LOSARTAN) 25 MG TAB 25 MILLIGRAM ORAL DAILY. Days = 30 Qty = 30 Hydrocodone/Acetaminophen (HYDROcodone/APAP 5/325) 5 MG-325 MG TAB 1 TABLET ORAL EVERY 4 HOURS NEEDED. as needed for PAIN SCALE 4-6, SECOND LINE Days = 14 traMADol (ULTRAM) 50 MG TAB 50 MILLIGRAM ORAL EVERY 4 HOURS NEEDED. as needed for PAIN SCALE 4-6 Days = 30 Continue taking these medications: ALBUTEROL (ALBUTEROL HFA 90 MCG/ACT) (Unknown Strength) INHALER Unknown Dose ACETAMINOPHEN (TYLENOL) 325 MG TAB 650 MILLIGRAM ORAL EVERY 4 HOURS NEEDED. as needed for PAIN SCALE 1-3/ TEMP ABOVE 100F Days = 30 DOCUSATE SODIUM (COLACE) 100 MG CAP 100 MILLIGRAM ORAL TWICE DAILY NEEDED. as needed for CONSTIPATION Days = 30 HYDROCHLOROTHIAZIDE (HCTZ) 12.5 MG CAP 12.5 MILLIGRAM ORAL DAILY. Days = 30 Qty = 30 This prescription has been renewed dexAMETHasone (dexAMETHasone) 6 MG TAB 6 MILLIGRAM ORAL THREE TIMES A DAY. Days = 14 Qty = 42 This prescription has been renewed Start taking the following new medications: LETROZOLE (FEMARA) 2.5 MG TAB 2.5 MILLIGRAM ORAL DAILY. Qty = 30 No Refills ENOXAPARIN (LOVENOX) 30 MG/0.3 ML DISP.SYRIN 30 MILLIGRAM SUBCUTANEOUS EVERY 12 HOURS. Qty = 42 No Refills LOSARTAN (COZAAR) 50 MG TAB 50 MILLIGRAM ORAL TWICE DAILY AFTER MEALS. Qty = 60 No Refills amLODIPine (NORVASC) 10 MG TAB 10 MILLIGRAM ORAL BEDTIME. Qty = 30 No Refills carvediloL (carvediloL) 3.125 MG TAB 6.25 MILLIGRAM ORAL TWICE DAILY. Qty = 60 No Refills Objective Physical Exam VS: Last Documented: Result Date Time Pulse Ox 99 12/23 725 Pulse 50 12/23 725 B/P 138/64 12/23 617 B/P Mean 88.6 12/23 617 O2 Delivery Room air 12/23 617 Temp 97.7 12/23 617 Resp 17 12/23 617 PATIENT WEIGHT: Weight (lb): 187 Weight (oz): 6.29 Weight (kg): 85.000 General appearance: alert, awake, oriented HEENT: mucosal membranes moist, pupils reactive to light Neck: supple Cardiovascular: regular rate rhythm Respiratory: clear bilaterally Abdomen: obese, soft, non-tender Skin: incision, (COVERED WITH AQUACEL), dry, intact Musculoskeletal - general: Musculoskeletal - general: normal muscle mass, normal tone, range of motion normal Neuro/SINKER PULLER: alert, oriented X 3, CNII-XII intact, no motor deficits, no sensory deficits Functional Progress Functional progress: The data set between the solid lines has been imported from multidisciplinary team documentation. __ FUNCTIONAL ACTIVITY ADMISSION STATUS DISCHARGE STATUS Toilet hygiene Supervision/touch (4) Independent (6) Toilet transfer Supervision/touch (4) Independent (6) Eating Independent (6) Independent (6) Shower/bathing Substantial/max (2) Independent (6) Dressing upper body Partial/moderate (3) Independent (6) Dressing lower body Dependent (1) Independent (6) Transfer to/from bed to chair Supervision/touch (4) Wheel 50ft w/ 2 turns Supervision/touch (4) Wheel 150 ft Supervision/touch (4) Walk 50 ft w/ 2 turns Supervision/touch (4) Walk 150 ft Not attempted (88) Four steps __ General Information General Information Problem List/A P: 1. Right femoral fracture 2. HTN (hypertension) 3. Cancer of left breast, stage 4 4. Pathologic fracture of neck of right femur Date of admission: Date of admission: 12/16/23 Discharge date: 12/24/23 Discharge diagnosis: see problem list Hospital course: 73-year-old female with metastatic breast cancer. She has a pathological fracture of the right femoral neck status post right hip hemiarthroplasty for which she is weightbearing as tolerated. She also has some metastatic lesions in the spine not currently causing spinal cord compromise. She is to follow-up with Dr. Worrell in 6 weeks. She has a surgical oncologist that she has been seen at [facility] in [place]. She will need to follow with Dr. Mosher or another oncologist after discharge. Plan comprehensive [...] her cancer. Hip incision looks good. Continue rehab. 12/20: Pt seen. Making progress with therapy. Pain controlled. MRI of the brain shows skull lesion to the posterior right skull. No intracranial masses. Team Conference tomorrow. 12/21: See team conference note. She is 1 week postop. MRI of the head negative thoracic MRI shows metastatic involvement throughout the thoracic spine. We are going to try to get her home on Wednesday the . She will need home health, rolling walker, bedside commode, and a tub transfer bench. She will follow-up with Dr. Mosher of oncology. Continue rehab. 12/22: Patient to go home tomorrow. She will follow-up with orthopedics in oncology. She does not have a primary care physician but she knows she has to get 1. Blood pressure poorly controlled we will add Coreg. Prepare discharge for tomorrow. 12/23: DC to home. FU with PCP, Oncology and surgery Due to [pathological femur fracture] the patient is confined to a single room in the home. OR Due to [] the patient is confined to one level of the home and there is not a toilet on that level. OR Due to [] the patient is confined to the home and there are no toilet facilities in the home. Due to [pathological femur fracture] patient has a mobility limitation that prevents him/her from performing MRADLS in the home such as [toileting]. The patient requires a walker to safely perform MRADLS in the home and a cane will not resolve the issue. The patients mobility imitations are [pain]. Pt. condition on discharge: stable Discharge Instructions Discharge Instructions Discharge to: Home Health wPlan of Care Additional Discharge Routines: PCP Follow-Up, Director [employer] Follow-Up Diet: Regular Prescriptions: e-prescribe Discharge management: greater than 30 mins Follow-up Appointments PCP: PCP: No Primary or Family Physician PCP follow up timeframe: In 2-3 weeks Consulting provider 1: Provider 1: Alirio Hurtado MD Specialty: Orthopaedic Surgery Consult follow up timeframe: In 1-2 weeks Consulting provider 2: Provider 2: Leanna Mosher MD Specialty: Hematology and Oncology Follow up timeframe: In 1-2 weeks at 2234 RPT #:[id number] END OF REPORT [facility] 2023-12-23 20:46:00 [facility] ([facility]) Tevin/Oncology Progress Note REPORT#:[id number] REPORT STATUS: Signed REPORT INITIALIZATION DATE:12/23/23 TIME: 2045 PATIENT: JUSTYNA GAMING UNIT #: [id number] ROOM/BED: [facility]-2 : 49 AGE: 73 SEX: F ATTEND: Fern Mata MD ADM AUTHOR: Leanna Mosher MD REPT SERVICE DT/TIME: 12/23/232045 * ALL edits or amendments must be made on the electronic/computer document * Subjective Chief Complaint: fu met breast cancer and path hip fracture transferred to rehab. doing ok. RI brain is negative. started on letrozole. path from hip fracture d/w Dr Cordero - notes ER + and consistent with breast primary Objective Physical Exam VS: Vital Signs Date Temp Pulse Resp B/P B/P Mean Pulse Ox FiO2 04/-12/22 36.5-36.9 52-84 16-18 142-169/65-76 92.5-106.4 92-97 Last Documented: Result Date Time Pulse Ox 96 12/22 1921 B/P 142/69 12/22 1921 B/P Mean 93.3 12/22 1921 O2 Delivery Room air 12/22 1921 Temp 36.8 12/22 1921 Pulse 84 12/22 1921 Resp 16 12/22 1921 General appearance: awake HEENT: pupils reactive to light Cardiovascular: regular rate and rhythm, normal heart sounds Respiratory: aerating well, symmetric expansion, no distress Abdomen: non-tender, soft, no mass/organomegaly Extremities: moves all Neuro/SINKER PULLER: alert, oriented X 3, no motor deficits, no sensory deficits Current Medications Medications: Active Meds + DC'd Last 24 Hrs Carvedilol (COREG) 6.25 MG BID PO Amlodipine Besylate [...] Diagnosis, Assessment Plan Free Text DxA P Notes Free Text DxA P Notes: 1. Breast cancer 2. Metastatic malignancy likely recurrent breast 3. Spinal stenosis due to metastaic disease 4. pathological hip fracture 5. Hypercalcemia of maligancy PLan recommend MRI brain if not already doen due to extensive metastatic disease. s/p right hip surgery on 12/14 tissue sent for path results pending for confirmation and molecular tumor profiling spoke with DR Hurtado and Dr Worrell and DR Payne to coordinate care. continue dex 4mg q 8 and will slowly taper after competion of xrt. Plan is short course of IP rehab and OP XRT as she does not have any impending neurological dysfunction and insurance not able to provide ambulance rides for XRT. s/p zometa on 12/14 - monitor calcium monitor creatinine. IVF hydraion pending ca and path 12/19 still awaiting path will start letrozole whicle awaiting path from 12/15 based on prior ER positive disease. cotinue rehab needs MRI brain to complete staging w/u continue dex TID OP XRT planned for spinal epidural mass. 12/20 letrozole started MRI brain negative path still pending. reached out to pathology today. awaiting on IHC stains can change dex to 4mg po bid if stable. 12/22 continue letrozole may give 1 month supply at discharge 2.5 mg po daily. ok to dc home when ready from rehab from onc stand point. will start XRT to spine as soon as discharged from hospital. dex decreased to 4 mg po bid x 1 week and then will taper off once started on XRT. pepcid po daily while on dex I spoke with DR Cordero pathologist who notes consistent with ER + breast primary. DR Campos covering me this wekend. please call if questions. at 2050 RPT #:[id number] END OF REPORT [facility] 2023-12-23 15:53:00 [facility]) Rehab Progress Note REPORT#:[id number] REPORT STATUS: Signed REPORT INITIALIZATION DATE:12/23/23 TIME: 1552 PATIENT: JUSTYNA GAMING UNIT #: [id number] ROOM/BED: [place] [address] : 49 AGE: 73 SEX: F ATTEND: Fern Mata MD ADM AUTHOR: Fern Mata MD REPT SERVICE DT/TIME: 12/23/23 5763 * ALL edits or amendments must be made on the electronic/computer document * Subjective Chief complaint: Seen bedside. Doing well from a rehab standpoint. She is due to go home tomorrow. Blood pressure still poorly controlled. Internal medicine has been increasing her medicines. She is maxed out on losartan and Norvasc. She is also on low-dose hydrochlorothiazide. Will start Coreg. Review of Systems Constitutional: Denies: chills, generalized weakness. Respiratory: Denies: DOBSON (dyspnea on exertion), SOB. Cardiovascular: Denies: chest pain, palpitations. GI: Denies: abdominal pain. : Denies: dysuria. Objective General VS: Vital Signs: Date Time Temp Pulse Resp B/P B/P Pulse O2 O2 Flow FiO2 Mean Ox Delivery Rate 12/22 1525 98.4 62 17 162/65 97.1 96 12/22 0621 97.7 52 18 147/65 92.5 97 12/22 0005 97.9 54 17 147/76 99.7 92 12/21 2145 59 169/75 106.4 96 12/21 2046 98.4 61 18 181/72 108.6 95 PATIENT WEIGHT: Weight (lb): 187 Weight (oz): 6.29 Weight (kg): 85.000 Medications: Active Meds + DC'd Last 24 Hrs Carvedilol (COREG) 6.25 MG BID PO Amlodipine Besylate [...] 17 GM BID PRN PRN PO Functional Progress Functional progress: The data set between the solid lines has been imported from multidisciplinary team documentation. __ FUNCTIONAL ACTIVITY ADMISSION STATUS INTERIM STATUS Toilet [...] (88) Supervision/touch (4) Four steps Supervision/touch (4) __ Functional Assessment/Exam Extremities: edema Physical Exam General appearance: alert, awake, oriented HEENT: mucosal membranes moist, pupils reactive to light Neck: supple Cardiovascular: regular rate rhythm Respiratory: clear bilaterally Abdomen: obese, soft, non-tender Skin: incision, (COVERED WITH AQUACEL), dry, intact Musculoskeletal - general: Musculoskeletal - general: normal muscle mass, normal tone, range of motion normal Neuro/SINKER PULLER: alert, oriented X 3, CNII-XII intact, no motor deficits, no sensory deficits Diagnosis, Assessment Plan Problem List/A P: 1. Cancer of left breast, stage 4 2. HTN (hypertension) 3. Pathologic fracture of neck of right femur Free Text A P: Advanced Care Plan for patients age > 65 *Advanced Care Plan Discussed: [ X]Yes who, living will, POA, and code status FULL [ ] No explain why] *Surrogate Decision Maker: [...] a surgical oncologist that she has been seen at [facility] in [place]. She will need to follow with Dr. Mosher or another oncologist after discharge. Plan comprehensive [...] her cancer. Hip incision looks good. Continue rehab. 12/20: Pt seen. Making progress with therapy. Pain controlled. MRI of the brain shows skull lesion to the posterior right skull. No intracranial masses. Team Conference tomorrow. 12/21: See team conference note. She is 1 week postop. MRI of the head negative thoracic MRI shows metastatic involvement throughout the thoracic spine. We are going to try to get her home on Wednesday the . She will need home health, rolling walker, bedside commode, and a tub transfer bench. She will follow-up with Dr. Mosher of oncology. Continue rehab. 12/22: Patient to go home tomorrow. She will follow-up with orthopedics in oncology. She does not have a primary care physician but she knows she has to get 1. Blood pressure poorly controlled we will add Coreg. Prepare discharge for tomorrow. Due to [pathological femur fracture] the patient is confined to a single room in the home. OR Due to [] the patient is confined to one level of the home and there is not a toilet on that level. OR Due to [] the patient is confined to the home and there are no toilet facilities in the home. Due to [pathological femur fracture] patient has a mobility limitation that prevents him/her from performing MRADLS in the home such as [toileting]. The patient requires a walker to safely perform MRADLS in the home and a cane will not resolve the issue. The patients mobility imitations are [pain]. Rehab attestation: Face to face exam completed. Treatment plan discussed with patient. Meets continued stay criteria. Agree with interdisciplinary treatment plan. at 1555 RPT #:[id number] END OF REPORT [facility] 2023-12-22 21:21:00 [facility] Hospitalist Progress Note REPORT#:[id number] REPORT STATUS: Signed REPORT INITIALIZATION DATE:12/22/23 TIME: 2120 PATIENT: JUSTYNA GAMING UNIT #: [id number] ROOM/BED: [place] [id number] : 49 AGE: 73 SEX: F ATTEND: Fern Mata MD ADM AUTHOR: Alex Grove MD REPT SERVICE DT/TIME: 12/22/232120 * ALL edits or amendments must be made on the electronic/computer document * Subjective Chief complaint: Patient feeling well today. HPI: 3 WF WITH HTN, BREAST CANCER, S/P CHEMO/XRT IN 2013, NOW ADMITTED FOR RIGHT HIP PAIN, FOUND TO HAVE PATHOLOGIC FRACTURE, AND NEW DIFFUSE VERTEBRAL METS WITH EPIDURAL MASS AND PARTIAL CORD COMPRESSION. SEEN ORTHO/ONC/NS/REHAB, AND PLAN FOR IRF COURSE AND XRT DURING IRF, AND OUTPATIENT CHEMO. Orthopedics consulted, patient taken to the OR for right hemiarthroplasty on . PMR was consulted and patient was transferred to rehab unit for inpatient rehab. Objective General VS/I O: Vital Signs: Date Time Temp Pulse Resp B/P B/P Pulse O2 O2 Flow FiO2 Mean Ox Delivery Rate 12/21 2045 98.4 61 18 181/72 108.6 95 / 1539 97.7 57 16 150/69 96.4 96 [...] Voids 1 2 PATIENT WEIGHT: Weight (lb): 187 Weight (oz): 6.29 Weight (kg): 85.000 Free Text Obj Notes Free Text Obj Notes: General appearance: chronically ill appearing, obese, alert, awake Head/Eyes: Atraumatic, normocephalic Neck: no JVD Cardiovascular: normal heart sounds, regular rate rhythm Respiratory: aerating well, clear to auscultation, symmetric expansion Abdomen: obese, non-tender, normal bowel sounds, soft Extremities: TRACE PRETIBIAL EDEMA Musculoskeletal: decreased ROM Neuro/SINKER PULLER: alert, oriented X 3 Skin: normal color Psychiatry: normal affect Diagnosis, Assessment Plan Free Text DxA P Notes Free text DxA P notes: Right femoral PATHOLOGIC Fracture/Right hip fracture, S/P HEMIARTHROPLASTY - - ORTHO SEEN -12/15: transferred to inpatient rehab unit MET VERTEBRAL METS/Multiple lytic bone lesions/PARTIAL CORD COMPRESSION DUE TO EPIDURAL MASS - NS/ONC SEEN, PLAN FOR XRT I/P WHILE IN REHAB -Dexamethasone 6 mg 3 times daily Hypercalcemia OF MALIGNANCY - RESOLVED WITH ZOMETA X1 AND IVF BY ONC Hypertension -Likely exacerbated by steroids, consider weaning down when no longer needed -Continue home hydrochlorothiazide -Losartan increased to 50 mg twice daily Amlodipine 5 mg at bedtime -Clonidine 0.1 mg twice daily as needed for systolic blood pressure greater than 180 Asthma/pneumonia - DONE WITH ABX History of breast cancer WITN BONY METS - NEEDS O/P CHEMO BY ONC Constipation aggressive bowel regimen DVT PX - LOVENOX 30 BID Plans Reviewed imaging reports, concerning for metastatic process Orthopedic consulted in the ER Consider oncology consult in the morning Analgesia as tolerated Iv zithromax Duoneb breathing treatment q4h prn Supp O2 as needed IV fluid, monitor serum calcium. IV prn hydralazine for elevated blood pressure Further care per clinical course CODE STATUS: full code. 12/14- s/p right hip [...] recheck this afternoon and adjust medication accordingly 4/ BP still elevated, Will adjust medication. at 2122 RPT #:[id number] END OF REPORT [facility] 2023-12-22 14:40:00 [facility] ([facility]) Rehab Team Conference REPORT#:[id number] REPORT STATUS: Signed REPORT INITIALIZATION DATE:12/22/23 TIME: 1439 PATIENT: JUSTYNA GAMING UNIT #: [id number] ROOM/BED: [place] [id number] : 49 AGE: 73 SEX: F ATTEND: Fern Mata MD ADM AUTHOR: Fern Mata MD REPT SERVICE DT/TIME: 12/22/23 1440 * ALL edits or amendments must be made on the electronic/computer document * Rehabilitation Team Conference Weekly Team Conference Team conf information: Date of conference: 12/22/23 Conference type: Initial Conference scribe: Michelle. Tolbert, FLOAT TENDER INTERDISCIPLINARY TEAM MEETING PARTICIPANTS: TITLE NAME MD ELZA Vanegas, RN PT Hui Copeland, PT OT Rimma Hopkins OT CM/SHANE Saba NO ATTEN[facility]E [facility] Marina Clark, STEREOTYPER Staff (8) SNEHAL Motley Staff (9) NO [...] Pain controlled by PRN Tramadol and PRN APAP. PT team conference update: PROGRESS; GOOD, TRANSFERS SBA. GAIT 200' W/ RW AND SBA. AMB UP/DOWN 8 STEPS W/ RAILS AND SBA/CUES. OT team conference update: PROGRESS- GOOD, LIMITED BY HIP PRECAUTIONS, PAIN, AND LOW ENDURANCE ADLS ARE INDEPENDENT TO MOD A HHOT ST team conference update: CM or NABEEL team conference update: PATIENT LIVES AT HOME ALONE IN AN APARTMENT IN [place]. SHE WOULD LIKE TO MOVE TO THE FIRST FLOOR THE ELEVATOR IS FREQUENTLY OUT. SHE HAS AN ADULT DAUGHTER WHO PROVIDES COMMUNITY SUPPORT. Other discipline update 1: P.O INTAKE: 75% OF A REGULAR DIET WITH ENSURE MAX HP BID. Other discipline update 2: Other discipline update 3: [...] Twelve steps discharge goal: Partial/moderate asst (3) [place] 150 feet discharge goal: Independent (6) Goal 1 - Bowel function: NO INCONTINENT EPISODES WHILE ON REAHB UNIT Goal 2 - Bladder function: NO INCONTINENT EPISODES WHILE ON REHAB UNIT Nursing goal 3: NO FALLS WHILE ON REHAB UNIT Nursing goal 4: NO PRESSURE ULCERS DEVELOPMENT WHILE REAHB UNIT Nursing goal 5: PAIN 0/10 WITH CURRENT PAIN MEDS. DISCHARGE PLANNING: Barriers to discharge: Endurance, Fall risk, Caregiver, PAIN, IMPAIRED SELF CARE SKILLS Strategies for D/C barriers: Fall recovery training, Home evaluation, Evaluate pain control, ADL RETRAINING Estimated length of stay in days: 14 Anticipated discharge date: 12/24/23 Discharge date adjustment comment: Identified financial and/or community resource needs: Family/Caregiver training days: PATIENT AND FAMILY WILL BE EDUCATD ON USE OF GAIT BELT TO LOWER PT TO THE FLOOR IN THE EVENT OF LOSS OF BALANCE TO PREVENT FALL EMMY NJURY. FAMILY TRAININGSCHEDULED FOR 12/24/23 [place] day (DATE): 12/23/23 Expected discharge destination: Home Anticipated services upon discharge: Home health, Occupational therapy, Physical therapy, Nursing Anticipated discharge equipment: Tub bench, Bedside commode, RW Impairment group: orthopedic disorders NOTE Document ONLY ONE Impairment Group Orthopedic disorders: unilateral hip fracture Etiologic diagnosis: Pathological right femoral neck fracture Review of comorbidities: Hypertension, metastatic breast cancer Review/Recommendations Attestation: This interdisciplinary team conference was led by me and I concur with all decisions made during the team conference and revisions to the individualized overall plan of care. IRF cont stay criteria D/C HOME 12/23 at 1441 RPT #:[id number] END OF REPORT [facility] 2023-12-22 13:23:00 [facility] ([facility]) Rehab Progress Note REPORT#:[id number] REPORT STATUS: Signed REPORT INITIALIZATION DATE:12/22/23 TIME: 1323 PATIENT: JUSTYNA GAMING UNIT #: [id number] ROOM/BED: [place] [id number] : 49 AGE: 73 SEX: F ATTEND: Fern Mata MD ADM AUTHOR: Fern Mata MD REPT SERVICE DT/TIME: 12/22/23 1323 * ALL edits or amendments must be made on the electronic/computer document * Subjective Chief complaint: Staffed in IDT meeting. Seen bedside. Doing fairly well. MRI of the head and T-spine noted. Review of Systems Constitutional: Denies: chills, generalized weakness. Respiratory: Denies: SOB. Cardiovascular: Denies: chest pain, palpitations. GI: Denies: abdominal pain. : Denies: dysuria. Objective General VS: Vital Signs: Date Time Temp Pulse Resp B/P B/P Pulse O2 O2 Flow FiO2 Mean Ox Delivery Rate 12/21 1213 64 15 136/61 86.1 97 12/21 0617 97.7 56 15 161/78 105.3 96 Room air 12/20 2329 97.5 58 18 148/70 96.1 94 Room air 12/20 1907 98.1 53 17 154/90 111.3 96 Room air 12/20 1600 98.1 59 16 151/70 97.4 96 Room air PATIENT WEIGHT: Weight (lb): 187 Weight (oz): 6.29 Weight (kg): 85.000 Medications: Active Meds + DC'd Last 24 Hrs Tramadol HCl (ULTRAM) 50 MG Q4H PRN [...] 17 GM BID PRN PRN PO Functional Progress Functional progress: The data set between the solid lines has been imported from multidisciplinary team documentation. __ FUNCTIONAL ACTIVITY ADMISSION STATUS INTERIM STATUS Toilet [...] (88) Supervision/touch (4) Four steps Supervision/touch (4) __ Physical Exam General appearance: alert, awake, oriented HEENT: mucosal membranes moist, pupils reactive to light Neck: supple Cardiovascular: regular rate rhythm Respiratory: clear bilaterally Abdomen: obese, soft, non-tender Skin: incision, (COVERED WITH AQUACEL), dry, intact Musculoskeletal - general: Musculoskeletal - general: normal muscle mass, normal tone, range of motion normal Neuro/SINKER PULLER: alert, oriented X 3, CNII-XII intact, no motor deficits, no sensory deficits Results Radiology data: MRI of the thoracic spine and shows extensive metastatic involvement seen throughout the thoracic spine. There is significant epidural component at T8 seen left ventral to the thecal sac and left laterally with perhaps minimal cord compression and there is a left paracentral ventral epidural component identified at T7 without definite cord compression. Multilevel spondylosis also seen resulting in compromise of the canal at T9-T11. Diagnosis, Assessment Plan Problem List/A P: 1. Cancer of left breast, stage 4 2. HTN (hypertension) 3. Pathologic fracture of neck of right femur Free Text A P: Advanced Care Plan for patients age > 65 *Advanced Care Plan Discussed: [ X]Yes who, living will, POA, and code status FULL [ ] No explain why] *Surrogate Decision Maker: [...] a surgical oncologist that she has been seen at [facility] in [place]. She will need to follow with Dr. Mosher or another oncologist after discharge. Plan comprehensive [...] her cancer. Hip incision looks good. Continue rehab. 12/20: Pt seen. Making progress with therapy. Pain controlled. MRI of the brain shows skull lesion to the posterior right skull. No intracranial masses. Team Conference tomorrow. 12/21: See team conference note. She is 1 week postop. MRI of the head negative thoracic MRI shows metastatic involvement throughout the thoracic spine. We are going to try to get her home on Wednesday the . She will need home health, rolling walker, bedside commode, and a tub transfer bench. She will follow-up with Dr. Mosher of oncology. Continue rehab. Due to [pathological femur fracture] the patient is confined to a single room in the home. OR Due to [] the patient is confined to one level of the home and there is not a toilet on that level. OR Due to [] the patient is confined to the home and there are no toilet facilities in the home. Due to [pathological femur fracture] patient has a mobility limitation that prevents him/her from performing MRADLS in the home such as [toileting]. The patient requires a walker to safely perform MRADLS in the home and a cane will not resolve the issue. The patients mobility imitations are [pain]. Rehab attestation: Face to face exam completed. Treatment plan discussed with patient. Meets continued stay criteria. Agree with interdisciplinary treatment plan. at 1636 RPT #:[id number] END OF REPORT [facility] 2023-12-21 18:35:00 [facility] Tevin/Oncology Progress Note REPORT#:[id number] REPORT STATUS: Signed REPORT INITIALIZATION DATE:12/21/23 TIME: 1834 PATIENT: JUSTYNA GAMING UNIT #: [id number] ROOM/BED: [place] [id number] : 49 AGE: 73 SEX: F ATTEND: Fern Mata MD ADM AUTHOR: Leanna Mosher MD REPT SERVICE DT/TIME: 12/21/231834 * ALL edits or amendments must be made on the electronic/computer document * Subjective Chief Complaint: fu met breast cancer and path hip fracture transferred to rehab. doing ok. RI brain is negative. started on letrozole. path from hip fracture still pending. Objective Physical Exam VS: Vital Signs Date Temp Pulse Resp B/P B/P Mean Pulse Ox FiO2 04/-12/20 36.7 59-62 15-17 151-159/65-74 96.6-101.6 94-97 Last Documented: Result Date Time Pulse Ox 96 / 1600 B/P 151/70 12/20 1600 B/P Mean 97.4 / 1600 O2 Delivery Room air 12/20 1600 Temp 36.7 12/20 1600 Pulse 59 04/02 1600 Resp 16 12/20 1600 General appearance: awake HEENT: pupils reactive to light Cardiovascular: regular rate and rhythm, normal heart sounds Respiratory: aerating well, symmetric expansion, no distress Abdomen: non-tender, soft, no mass/organomegaly Extremities: moves all Neuro/SINKER PULLER: alert, oriented X 3, no motor deficits, no sensory deficits Current Medications Medications: Active Meds + DC'd Last 24 Hrs Gadoterate Meglumine (DOTAREM) 17 ML ONCE PRN [...] (MIRALAX) 17 GM BID PRN PRN PO Results Findings/Data: Laboratory Tests 12/21/23 05: [Embedded Image Not Available] Laboratory Tests 12/20 510 Chemistry Sodium (134 - [...] 5.0 g/dL) 3.00 L Laboratory Tests 12/20 0511 Hematology WBC (4.5 - 11.0 x10 3/uL) [...] (Auto) (14.0 - 32.0 %) 8.[address] [place] % (Auto) (4.8 - 9.0 %) 4.3 L Eos % (Auto) (0.3 - 3.7 %) 0.0 L Baso % (Auto) (0.0 - 2.0 %) 0.3 Neut # (Auto) (2.0 - 7.6 x10 3/uL) 9.20 H Lymph # (Auto) (1.0 - 3.8 x10 3/uL) 0.[address] [place] # (Auto) (0.1 - 0.8 x10 3/uL) [...] (0.0 - 0.1 x10 3/uL) 0.00 Radiology data: Recent Impressions: [facility]NET[facility] IMAGING - MRI BRAIN WO/W CONT 12/20 1217 Report Impression - Status: SIGNED Entered: 12/21/2023 1307 IMPRESSION: 1. Unremarkable brain. 2. Abnormal enhancement at the high right posterior skull is noted concerning for metastatic disease Impression By: StephanieRRNavjot Duque M.D. Diagnosis, Assessment Plan Free Text DxA P Notes Free Text DxA P Notes: 1. Breast cancer 2. Metastatic malignancy likely recurrent breast 3. Spinal stenosis due to metastaic disease 4. pathological hip fracture 5. Hypercalcemia of maligancy PLan recommend MRI brain if not already doen due to extensive metastatic disease. s/p right hip surgery on 12/14 tissue sent for path results pending for confirmation and molecular tumor profiling spoke with DR Hurtado and Dr Worrell and DR Payne to coordinate care. continue dex 4mg q 8 and will slowly taper after competion of xrt. Plan is short course of IP rehab and OP XRT as she does not have any impending neurological dysfunction and insurance not able to provide ambulance rides for XRT. s/p zometa on 12/14 - monitor calcium monitor creatinine. IVF hydraion pending ca 27-29 and path 12/19 still awaiting path will start letrozole whicle awaiting path from 12/15 based on prior ER positive disease. cotinue rehab needs MRI brain to complete staging w/u continue dex TID OP XRT planned for spinal epidural mass. 12/20 letrozole started MRI brain negative path still pending. reached out to pathology today. awaiting on IHC stains can change dex to 4mg po bid if stable. at 1838 RPT #:[id number] END OF REPORT [facility] 2023-12-21 13:03:00 [facility] ([facility]) Rehab Progress Note REPORT#:[id number] REPORT STATUS: Signed REPORT INITIALIZATION DATE:12/21/23 TIME: 130 PATIENT: JUSTYNA GAMING UNIT #: [id number] ROOM/BED: [place] [id number] : 49 AGE: 73 SEX: F ATTEND: Fern Mata MD ADM AUTHOR: Haylee Hamilton PA-C REPT SERVICE DT/TIME: 12/21/23 1303 * ALL edits or amendments must be made on the electronic/computer document * Subjective Chief complaint: Pt seen and examined. No acute distress. SHe is seen in the bedside chair eating lunch after coming back from a MRI. Objective General VS: Vital Signs: Date Time Temp Pulse Resp B/P B/P Pulse O2 O2 Flow FiO2 Mean Ox Delivery Rate 12/20 0601 98.1 62 15 159/65 96.6 97 Room air 12/19 2318 61 17 156/74 101.6 94 Room air 12/19 1825 98.2 64 17 162/70 100.5 95 Room air 12/19 1610 98.4 56 16 145/69 94.2 94 PATIENT WEIGHT: Weight (lb): 187 Weight (oz): 6.29 Weight (kg): 85.000 Medications: Active Meds + DC'd Last 24 Hrs Gadoterate Meglumine (DOTAREM) 17 ML ONCE PRN [...] 17 GM BID PRN PRN PO Functional Progress Functional progress: The data set between the solid lines has been imported from multidisciplinary team documentation. __ FUNCTIONAL ACTIVITY ADMISSION STATUS INTERIM STATUS Toilet [...] Not attempted (88) Supervision/touch (4) Four steps __ - - PT DAILY NOTE - - [...] WITH ALL NEEDS MET AND WITHIN REACH. ELZA SHAIKH WAS MADE AWARE AND NOTIFIED. A: PT TOLERATED TX WELL. PT INSTRUCTED TO UTILIZE REST BREAKS AND PACING DURING ACTIVITIES TO INCREASE ENERGY CONSERVATION. P: CONTINUE POC. - - OT DAILY NOTE - - Range of motion and strength: BUE STRENGTHENING WITH 3 # DOWEL 10 X 20 YELLOW T-BAND 10 X 12 Transfers: SUPERVISION W/ TOILET TRANSFERS AND SHOWER TRANSFERS USING GRAB BAR ONTO SHOWER BENCH. Activities of daily living: COMPLETED FULL SHOWER INCLUDING SHAMPOO. PATIENT REPORTED FEELING BETTER. SHE WAS ABLE TO USE [...] WAS ABLE TO OBSERVE HIP PRECAUTIONS. PATIENT HAD AM TX FOR PRE BUE IN THE GYM. SHE HAD A SHOWER IN THE PM. SHE REMAINED SEATED IN W/C AFTER TX. CALL LIGHT WITHIN REACH. SHE WAS INSTRUCTED TO CALL FOR ASSIST W/ ALL TRANSFERS. PATIENT VERBALIZED UNDERSTANDING. Physical Exam General appearance: , alert, awake HEENT: mucosal membranes moist, pupils reactive to light Neck: supple Cardiovascular: regular rate rhythm Respiratory: clear bilaterally Abdomen: obese, soft, non-tender Skin: incision, (COVERED WITH AQUACEL), dry, intact Musculoskeletal - general: Musculoskeletal - general: normal muscle mass, normal tone, range of motion normal Neuro/SINKER PULLER: alert, oriented X 3, CNII-XII intact, no motor deficits, no sensory deficits Results Findings/Data: Laboratory Tests: 12/20 0511 Chemistry Sodium (134 - [...] (Auto) (14.0 - 32.0 %) 8.[address] [place] % (Auto) (4.8 - 9.0 %) 4.3 L Eos % (Auto) (0.3 - 3.7 %) 0.0 L Baso % (Auto) (0.0 - 2.0 %) 0.3 Neut # (Auto) (2.0 - 7.6 x10 3/uL) 9.20 H Lymph # (Auto) (1.0 - 3.8 x10 3/uL) 0.[address] [place] # (Auto) (0.1 - 0.8 x10 3/uL) [...] (0.0 - 0.1 x10 3/uL) 0.00 Radiology data: Recent Impressions: MAGNETIC RESONANCE IMAGING - MRI BRAIN WO/W CONT 12/20 1217 Report Impression - Status: SIGNED Entered: 12/21/2023 1307 IMPRESSION: 1. Unremarkable brain. 2. Abnormal enhancement at the high right posterior skull is noted concerning for metastatic disease Impression By: [email or web address] Alfredo Duque M.D. Diagnosis, Assessment Plan Free Text A P: Advanced Care Plan for patients age > 65 *Advanced Care Plan Discussed: [ X]Yes who, living will, POA, and code status FULL [ ] No explain why] *Surrogate Decision Maker: [...] a surgical oncologist that she has been seen at [facility] in [place]. She will need to follow with Dr. Mosher or another oncologist after discharge. Plan comprehensive [...] her cancer. Hip incision looks good. Continue rehab. 12/20: Pt seen. Making progress with therapy. Pain controlled. MRI of the brain shows skull lesion to the posterior right skull. No intracranial masses. Team Conference tomorrow. Rehab attestation: Face to face exam completed. Treatment plan discussed with patient. Meets continued stay criteria. Agree with interdisciplinary treatment plan. at 1552 RPT #:[id number] END OF REPORT [facility] 2023-12-20 20:36:00 [facility] ([facility]) Tevin/Oncology Progress Note REPORT#:[id number] REPORT STATUS: Signed REPORT INITIALIZATION DATE:12/20/23 TIME: 2035 PATIENT: JUSTYNA GAMING UNIT #: [id number] ROOM/BED: [place] [address] : 49 AGE: 73 SEX: F ATTEND: Fern Mata MD ADM AUTHOR: Leanna Mosher MD REPT SERVICE DT/TIME: 12/20/232035 * ALL edits or amendments must be made on the electronic/computer document * Subjective Chief Complaint: fu met breast cancer and path hip fracture transferred to rehab Objective Physical Exam VS: Vital Signs Date Temp Pulse Resp B/P B/P Mean Pulse Ox FiO2 12/19 36.5-36.9 49-64 16-17 136-164/69-73 93.7-102.1 94-96 Last Documented: Result Date Time Pulse Ox 95 12/19 1824 B/P 162/70 12/19 1824 B/P Mean 100.5 12/19 1824 O2 Delivery Room air 12/19 1824 Temp 36.8 12/19 1824 Pulse 64 12/19 1824 Resp 17 12/19 1824 General appearance: awake HEENT: pupils reactive to light Cardiovascular: regular rate and rhythm, normal heart sounds Respiratory: aerating well, symmetric expansion, no distress Abdomen: non-tender, soft, no mass/organomegaly Extremities: moves all Neuro/SINKER PULLER: alert, oriented X 3, no motor deficits, no sensory deficits Current Medications Medications: Active Meds + DC'd Last 24 Hrs Losartan Potassium (COZAAR) 50 MG BID PC [...] (MIRALAX) 17 GM BID PRN PRN PO Results Findings/Data: Laboratory Tests Test Result Date Time Chemistry Sodium [...] (20 - 125 IUnit/L) 159 H 12/17 0509 Total Protein (6.4 - 8.2 g/dL) 5.7 L 12/17 0509 Albumin (3.4 - 5.0 g/dL) 2.90 L 12/17 0509 CA 15-3 Antigen (0.0 - 25.0 U/mL) 35.8 H 12/17 0509 Vitamin B12 (193 - 986 pg/mL) 899 12/16 0500 Vitamin D 25-Hydroxy (30 - 100 ng/mL) 37.7 12/16 0500 Folate (3.1 - 17.5 ng/mL) 8.2 12/16 0500 TSH (0.42 - 5.47) 4.79 12/16 0500 Hematology WBC (4.5 - 11.0 x10 3/uL) 9.3 12/17 608 RBC (3.54 - 5.02 x10 6/uL) 3.63 12/17 0509 Hgb (11.0 - 15.0 g/dL) 11.0 12/17 0509 Hct (33.0 - 45.0 %) 32.1 L 12/17 608 MCV (81.0 - 99.0 fL) 88.4 12/17 0509 MCH (27.0 - 33.0 pg) 30.3 12/17 0509 MCHC (33.0 - 37.0 g/dL) 34.3 12/17 0509 RDW (11.5 - 14.5 %) 14.3 12/17 608 Plt Count (150 - 400 x10 3/uL) 192 12/17 0509 MPV (7.0 - 9.0 fL) 11.2 H 12/17 0509 Neut % (Auto) (56.0 - 77.0 %) 85.8 H 12/17 0509 Lymph % (Auto) (14.0 - 32.0 %) 7.0 L 12/[address] % (Auto) (4.8 - 9.0 %) 5.4 12/17 608 Eos % (Auto) (0.3 - 3.7 %) 0.0 L 12/17 608 Baso % (Auto) (0.0 - 2.0 %) 0.2 12/17 0609 Neut # (Auto) (2.0 - 7.6 x10 3/uL) 7.98 H 12/17 06 Lymph # (Auto) (1.0 - 3.8 x10 3/uL) 0.65 L 12/[address] [place] # (Auto) (0.1 - 0.8 x10 3/uL) 0.50 12/17 0609 Eos # (Auto) (0.0 - 0.2 x10 3/uL) 0.00 12/17 0609 Baso # (Auto) (0.0 - 0.2 x10 3/uL) 0.02 12/17 0609 Abs Immat Gran (auto) (0.00 - 0.03 x10 3/uL) 0.15 H 12/17 0509 Immature Gran % (0.0 - 2.0 %) 1.6 12/17 0609 Nucleated RBC % (0 - 0 %) 0.0 12/17 608 Nucleated RBCs # (Man) (0.0 - 0.1 [...] MG Q4H PRN PRN 12/15 1415 AC 04/01 PO 12/20 1414 1336 Acetaminophen 650 MG Q4H PRN PRN 12/15 1400 AC PO 03/15 1359 Enoxaparin Sodium 30 MG Q12H 12/15 1400 AC 12/19 SUBQ 03/15 1359 1045 Ondansetron HCl 4 MG Q6H PRN PRN 12/15 1400 AC PO 03/15 1359 Polyethylene Glycol 17 GM BID PRN PRN 12/15 1400 AC PO 03/15 1359 Diagnosis, Assessment Plan Free Text DxA P Notes Free Text DxA P Notes: 1. Breast cancer 2. Metastatic malignancy likely recurrent breast 3. Spinal stenosis due to metastaic disease 4. pathological hip fracture 5. Hypercalcemia of maligancy PLan recommend MRI brain if not already doen due to extensive metastatic disease. s/p right hip surgery on 12/14 tissue sent for path results pending for confirmation and molecular tumor profiling spoke with DR Hurtado and Dr Worrell and DR Payne to coordinate care. continue dex 4mg q 8 and will slowly taper after competion of xrt. Plan is short course of IP rehab and OP XRT as she does not have any impending neurological dysfunction and insurance not able to provide ambulance rides for XRT. s/p zometa on 12/14 - monitor calcium monitor creatinine. IVF hydraion pending ca 27-29 and path 12/19 still awaiting path will start letrozole whicle awaiting path from 12/15 based on prior ER positive disease. cotinue rehab needs MRI brain to complete staging w/u continue dex TID OP XRT planned for spinal epidural mass. at 2039 RPT #:[id number] END OF REPORT [facility] 2023-12-20 16:05:00 [facility] ([facility]) Rehab Progress Note REPORT#:[id number] REPORT STATUS: Signed REPORT INITIALIZATION DATE:12/20/23 TIME: 1605 PATIENT: JUSTYNA GAMING UNIT #: [id number] ROOM/BED: [facility] : 49 AGE: 73 SEX: F ATTEND: Fern Mata MD ADM AUTHOR: Fern Mata MD REPT SERVICE DT/TIME: 12/20/23 1605 * ALL edits or amendments must be made on the electronic/computer document * Subjective Chief complaint: Seen working with OT. She was in the shower. Hip incision is covered. There is no drainage noted. Pain okay. Review of Systems Constitutional: Denies: chills, generalized weakness. Respiratory: Denies: DOBSON (dyspnea on exertion), SOB. Cardiovascular: Denies: chest pain, palpitations. GI: Denies: abdominal pain. : Denies: dysuria. Objective General VS: Vital Signs: Date Time Temp Pulse Resp B/P B/P Pulse O2 O2 Flow FiO2 Mean Ox Delivery Rate 12/19 0627 97.7 49 16 164/71 102.1 96 12/19 0003 97.9 58 17 136/73 93.7 95 12/18 1928 98.1 61 17 151/71 98.0 94 PATIENT WEIGHT: Weight (lb): 187 Weight (oz): 6.29 Weight (kg): 85.000 Medications: Active Meds + DC'd Last 24 Hrs Losartan Potassium (COZAAR) 50 MG BID PC [...] 17 GM BID PRN PRN PO Functional Progress Functional progress: The data set between the solid lines has been imported from multidisciplinary team documentation. __ FUNCTIONAL ACTIVITY ADMISSION STATUS INTERIM STATUS Toilet [...] 150 ft Not attempted (88) Four steps __ Physical Exam General appearance: alert, awake, oriented HEENT: mucosal membranes moist, pupils reactive to light Neck: supple Cardiovascular: regular rate rhythm Respiratory: clear bilaterally Abdomen: obese, soft, non-tender Skin: incision, (COVERED WITH AQUACEL), dry, intact Musculoskeletal - general: Musculoskeletal - general: normal muscle mass, normal tone, range of motion normal Neuro/SINKER PULLER: alert, oriented X 3, CNII-XII intact, no motor deficits, no sensory deficits Diagnosis, Assessment Plan Problem List/A P: 1. Cancer of left breast, stage 4 2. HTN (hypertension) 3. Pathologic fracture of neck of right femur Free Text A P: Advanced Care Plan for patients age > 65 *Advanced Care Plan Discussed: [ X]Yes who, living will, POA, and code status FULL [ ] No explain why] *Surrogate Decision Maker: [...] a surgical oncologist that she has been seen at [facility] in [place]. She will need to follow with Dr. Mosher or another oncologist after discharge. Plan comprehensive [...] her cancer. Hip incision looks good. Continue rehab. Rehab attestation: Face to face exam completed. Treatment plan discussed with patient. Meets continued stay criteria. Agree with interdisciplinary treatment plan. at 1607 RPT #:[id number] END OF REPORT [facility] 2023-12-20 15:03:00 [facility] ([facility]) Hospitalist Progress Note REPORT#:[id number] REPORT STATUS: Signed REPORT INITIALIZATION DATE:12/20/23 TIME: 150 PATIENT: JUSTYNA GAMING UNIT #: [id number] ROOM/BED: [place] [id number] : 49 AGE: 73 SEX: F ATTEND: Fern Mata MD ADM AUTHOR: Travis Chavez DO REPT SERVICE DT/TIME: 12/20/23 1503 * ALL edits or amendments must be made on the electronic/computer document * Subjective Chief complaint: Patient feeling well today, however blood pressure persistently elevated HPI: 3 WF WITH HTN, BREAST CANCER, S/P CHEMO/XRT IN 2013, NOW ADMITTED FOR RIGHT HIP PAIN, FOUND TO HAVE PATHOLOGIC FRACTURE, AND NEW DIFFUSE VERTEBRAL METS WITH EPIDURAL MASS AND PARTIAL CORD COMPRESSION. SEEN ORTHO/ONC/NS/REHAB, AND PLAN FOR IRF COURSE AND XRT DURING IRF, AND OUTPATIENT CHEMO. Orthopedics consulted, patient taken to the OR for right hemiarthroplasty on . PMR was consulted and patient was transferred to rehab unit for inpatient rehab. Objective General VS/I O: Vital Signs: Date Time Temp Pulse Resp B/P [...] Number Voids 3 PATIENT WEIGHT: Weight (lb): 187 Weight (oz): 6.29 Weight (kg): 85.000 Results Results: labs reviewed, vital signs reviewed Free Text Obj Notes Free Text Obj Notes: General appearance: chronically ill appearing, obese, alert, awake Head/Eyes: Atraumatic, normocephalic Neck: no JVD Cardiovascular: normal heart sounds, regular rate rhythm Respiratory: aerating well, clear to auscultation, symmetric expansion Abdomen: obese, non-tender, normal bowel sounds, soft Extremities: TRACE PRETIBIAL EDEMA Musculoskeletal: decreased ROM Neuro/SINKER PULLER: alert, oriented X 3 Skin: normal color Psychiatry: normal affect Diagnosis, Assessment Plan Free Text DxA P Notes Free text DxA P notes: Right femoral PATHOLOGIC Fracture/Right hip fracture, S/P HEMIARTHROPLASTY - - ORTHO SEEN -12/15: transferred to inpatient rehab unit MET VERTEBRAL METS/Multiple lytic bone lesions/PARTIAL CORD COMPRESSION DUE TO EPIDURAL MASS - NS/ONC SEEN, PLAN FOR XRT I/P WHILE IN REHAB -Dexamethasone 6 mg 3 times daily Hypercalcemia OF MALIGNANCY - RESOLVED WITH ZOMETA X1 AND IVF BY ONC Hypertension -Likely exacerbated by steroids, consider weaning down when no longer needed -Continue home hydrochlorothiazide -Losartan increased to 50 mg twice daily Amlodipine 5 mg at bedtime -Clonidine 0.1 mg twice daily as needed for systolic blood pressure greater than 180 Asthma/pneumonia - DONE WITH ABX History of breast cancer WITN BONY METS - NEEDS O/P CHEMO BY ONC Constipation aggressive bowel regimen DVT PX - LOVENOX 30 BID Plans Reviewed imaging reports, concerning for metastatic process Orthopedic consulted in the ER Consider oncology consult in the morning Analgesia as tolerated Iv zithromax Duoneb breathing treatment q4h prn Supp O2 as needed IV fluid, monitor serum calcium. IV prn hydralazine for elevated blood pressure Further care per clinical course CODE STATUS: full code. 12/14- s/p right hip [...] and adjust medication accordingly at 1505 RPT #:[id number] END OF REPORT [facility] 2023-12-19 13:31:00 [facility] Hospitalist Progress Note REPORT#:[id number] REPORT STATUS: Signed REPORT INITIALIZATION DATE:12/19/23 TIME: 133 PATIENT: JUSTYNA GAMING UNIT #: [id number] ROOM/BED: [place] [id number] : 49 AGE: 73 SEX: F ATTEND: Fern Mata MD ADM AUTHOR: Travis Chavez DO REPT SERVICE DT/TIME: 12/19/23 1331 * ALL edits or amendments must be made on the electronic/computer document * Subjective Chief complaint: Patient feeling well today, however blood pressure persistently elevated HPI: 3 WF WITH HTN, BREAST CANCER, S/P CHEMO/XRT IN 2013, NOW ADMITTED FOR RIGHT HIP PAIN, FOUND TO HAVE PATHOLOGIC FRACTURE, AND NEW DIFFUSE VERTEBRAL METS WITH EPIDURAL MASS AND PARTIAL CORD COMPRESSION. SEEN ORTHO/ONC/NS/REHAB, AND PLAN FOR IRF COURSE AND XRT DURING IRF, AND OUTPATIENT CHEMO. Orthopedics consulted, patient taken to the OR for right hemiarthroplasty on . PMR was consulted and patient was transferred to rehab unit for inpatient rehab. Objective General VS/I O: Vital Signs: Date Time Temp Pulse Resp B/P B/P Pulse O2 O2 Flow FiO2 Mean Ox Delivery Rate 12/18 0627 97.7 61 17 173/71 105.4 97 Room [...] Number Voids 2 PATIENT WEIGHT: Weight (lb): 187 Weight (oz): 6.29 Weight (kg): 85.000 Results Results: labs reviewed, vital signs reviewed Free Text Obj Notes Free Text Obj Notes: General appearance: chronically ill appearing, obese, alert, awake Head/Eyes: Atraumatic, normocephalic Neck: no JVD Cardiovascular: normal heart sounds, regular rate rhythm Respiratory: aerating well, clear to auscultation, symmetric expansion Abdomen: obese, non-tender, normal bowel sounds, soft Extremities: TRACE PRETIBIAL EDEMA Musculoskeletal: decreased ROM Neuro/SINKER PULLER: alert, oriented X 3 Skin: normal color Psychiatry: normal affect Diagnosis, Assessment Plan Free Text DxA P Notes Free text DxA P notes: Right femoral PATHOLOGIC Fracture/Right hip fracture, S/P HEMIARTHROPLASTY - - ORTHO SEEN -12/15: transferred to inpatient rehab unit MET VERTEBRAL METS/Multiple lytic bone lesions/PARTIAL CORD COMPRESSION DUE TO EPIDURAL MASS - NS/ONC SEEN, PLAN FOR XRT I/P WHILE IN REHAB -Dexamethasone 6 mg 3 times daily Hypercalcemia OF MALIGNANCY - RESOLVED WITH ZOMETA X1 AND IVF BY ONC Hypertension -Continue home hydrochlorothiazide -Losartan increased to 25 mg twice daily Amlodipine 5 mg at bedtime Asthma/pneumonia - DONE WITH ABX History of breast cancer WITN BONY METS - NEEDS O/P CHEMO BY ONC Constipation aggressive bowel regimen DVT PX - LOVENOX 30 BID Plans Reviewed imaging reports, concerning for metastatic process Orthopedic consulted in the ER Consider oncology consult in the morning Analgesia as tolerated Iv zithromax Duoneb breathing treatment q4h prn Supp O2 as needed IV fluid, monitor serum calcium. IV prn hydralazine for elevated blood pressure Further care per clinical course CODE STATUS: full code. 12/14- s/p right hip arthroplasty for pathologic hip fracture. Multiple mets of the spine. XRT plans on going emergency radiation treatment ROSA while in the hospital for 5 treatments. 12/17 -losartan increased to 25 mg twice daily. Add amlodipine 5 mg at bedtime for hypertension. 12/18-blood pressure still elevated 170 systolic, increase losartan to 50 mg twice daily. at 1333 RPT #:[id number] END OF REPORT [facility] 2023-12-18 15:48:00 [facility] Hospitalist Progress Note REPORT#:[id number] REPORT STATUS: Signed REPORT INITIALIZATION DATE:12/18/23 TIME: 1547 PATIENT: JUSTYNA GAMING UNIT #: [id number] ROOM/BED: [place] [id number] : 49 AGE: 73 SEX: F ATTEND: Fern Mata MD ADM AUTHOR: Travis Chavez DO REPT SERVICE DT/TIME: 12/18/231547 * ALL edits or amendments must be made on the electronic/computer document * Subjective Chief complaint: Patient feeling well today, however blood pressure persistently elevated HPI: 3 WF WITH HTN, BREAST CANCER, S/P CHEMO/XRT IN 2013, NOW ADMITTED FOR RIGHT HIP PAIN, FOUND TO HAVE PATHOLOGIC FRACTURE, AND NEW DIFFUSE VERTEBRAL METS WITH EPIDURAL MASS AND PARTIAL CORD COMPRESSION. SEEN ORTHO/ONC/NS/REHAB, AND PLAN FOR IRF COURSE AND XRT DURING IRF, AND OUTPATIENT CHEMO. Orthopedics consulted, patient taken to the OR for right hemiarthroplasty on . PMR was consulted and patient was transferred to rehab unit for inpatient rehab. Objective General VS/I O: Vital Signs: Date Time Temp Pulse Resp B/P [...] Number Voids 2 PATIENT WEIGHT: Weight (lb): 187 Weight (oz): 6.29 Weight (kg): 85.000 Results Findings/Data: Laboratory Tests 12/17 608 Chemistry Sodium (134 - [...] (Auto) (14.0 - 32.0 %) 7.[address] [place] % (Auto) (4.8 - 9.0 %) 5.4 Eos % (Auto) (0.3 - 3.7 %) 0.0 L Baso % (Auto) (0.0 - 2.0 %) 0.2 Neut # (Auto) (2.0 - 7.6 x10 3/uL) 7.98 H Lymph # (Auto) (1.0 - 3.8 x10 3/uL) 0.[address] [place] # (Auto) (0.1 - 0.8 x10 3/uL) [...] reviewed, vital signs reviewed Free Text Obj Notes Free Text Obj Notes: General appearance: chronically ill appearing, obese, alert, awake Head/Eyes: Atraumatic, normocephalic Neck: no JVD Cardiovascular: normal heart sounds, regular rate rhythm Respiratory: aerating well, clear to auscultation, symmetric expansion Abdomen: obese, non-tender, normal bowel sounds, soft Extremities: TRACE PRETIBIAL EDEMA Musculoskeletal: decreased ROM Neuro/SINKER PULLER: alert, oriented X 3 Skin: normal color Psychiatry: normal affect Diagnosis, Assessment Plan Free Text DxA P Notes Free text DxA P notes: Right femoral PATHOLOGIC Fracture/Right hip fracture, S/P HEMIARTHROPLASTY - - ORTHO SEEN -12/15: transferred to inpatient rehab unit MET VERTEBRAL METS/Multiple lytic bone lesions/PARTIAL CORD COMPRESSION DUE TO EPIDURAL MASS - NS/ONC SEEN, PLAN FOR XRT I/P WHILE IN REHAB -Dexamethasone 6 mg 3 times daily Hypercalcemia OF MALIGNANCY - RESOLVED WITH ZOMETA X1 AND IVF BY ONC Hypertension -Continue home hydrochlorothiazide -Losartan increased to 25 mg twice daily Amlodipine 5 mg at bedtime Asthma/pneumonia - DONE WITH ABX History of breast cancer WITN BNY METS - NEEDS O/P CHEMO BY ONC, PATH PENDING Constipation aggressive bowel regimen DVT PX - LOVENOX 30 BID Plans Reviewed imaging reports, concerning for metastatic process Orthopedic consulted in the ER Consider oncology consult in the morning Analgesia as tolerated Iv zithromax Duoneb breathing treatment q4h prn Supp O2 as needed IV fluid, monitor serum calcium. IV prn hydralazine for elevated blood pressure Further care per clinical course CODE STATUS: full code. 12/14- s/p right hip arthroplasty for pathologic hip fracture. Multiple mets of the spine. XRT plans on going emergency radiation treatment ROSA while in the hospital for 5 treatments. 12/17 -losartan increased to 25 mg twice daily. Add amlodipine 5 mg at bedtime for hypertension. at 1549 RPT #:[id number] END OF REPORT [facility] 2023-12-17 22:10:00 [facility] ([facility] Rehab Indiv Overall POC REPORT#:[id number] REPORT STATUS: Signed REPORT INITIALIZATION DATE:12/17/23 TIME: 2209 PATIENT: JUSTYNA GAMING UNIT #: [id number] ROOM/BED: [facility] : 49 AGE: 73 SEX: F ATTEND: Fern Mata MD ADM AUTHOR: Fern Mata MD REPT SERVICE DT/TIME: 12/17/23 3950 * ALL edits or amendments must be made on the electronic/computer document * Individualized Overall POC HPI Impairment group: orthopedic disorders NOTE Document ONLY ONE Impairment Group Orthopedic disorders: unilateral hip fracture Etiologic diagnosis: Pathological right femoral neck fracture Medical Expected Course Expected DC destination: Expected DC destination: Home Problem List/A P: 1. Cancer of left breast, stage 4 2. HTN (hypertension) 3. Pathologic fracture of neck of right femur Medical prognosis: fair Medical prognosis details: endurance, D/C plan, financial resources Expected course of Tx: COMPREHENSIVE REHAB. Functional Expected Course Functional expected course: The data set between the solid lines has been imported from multidisciplinary team documentation: __ ANTICIPATED SERVICES IN ACUTE INPATIENT REHAB: DISCIPLINE Physical Therapy Occupational Therapy Speech Therapy INTENSITY (minutes/day) 90 90 FREQUENCY (days/week) 5 6 DURATION (# of days) 15 15 EXPECTED FUNCTIONAL [...] Setup/clean-up only (5) object discharge goal: CARE [place] 50 feet Independent (6) with two turns discharge goal: CARE [place] 150 Independent (6) feet discharge goal: CARE [...] goal: NO INCONTINENT EPISODES WHILE ON REAHB UNIT Bladder function goal: NO INCONTINENT EPISODES WHILE ON REHAB UNIT _ ELOS Attestation: Based upon the review of clinical staff recommendations of frequency, duration and intensity and individual assessment of this patient, I estimate the following: PT/OT 3 HOURS/ DAY X 5-6 DAYS/WEEK X 2 WEEKS Estimated length of stay: 2 WEEKS MD Review/Recommendation Attestation: Based upon my physical evaluation of the patient [...] Postsurgery req mgt/care, Complex pain management at 2210 RPT #:[id number] END OF REPORT [facility] 2023-12-17 15:10:00 [facility] ([facility] Rehab History Physical REPORT#:[id number] REPORT STATUS: Signed REPORT INITIALIZATION DATE:12/17/23 TIME: 1510 PATIENT: JUSTYNA GAMING UNIT #: [id number] ROOM/BED: [place] [address] : 49 AGE: 73 SEX: F ATTEND: Fern Mata MD ADM AUTHOR: Fern Mata MD REPT SERVICE DT/TIME: 12/17/23 1510 * ALL edits or amendments must be made on the electronic/computer document * HPI HPI Chief complaint: Pain PCP: PCP: No Primary or Family Physician Referring physician: Referring physician: RAH MORENO-HOSPITALIST HPI: 73 years old F, admitted emergently due to [...] XRT and chempotherapy. She has been followed ( last in ) at [facility] by Dr. Mcqueen (breast surgeon) since then. [...] weightbearing as tolerated. She is to be on DVT prophylaxis with Lovenox or 1 adult aspirin twice daily. Our service was consulted on her and referred her to the rehab unit she was admitted yesterday. Of note oncology is planning radiation treatment soon as possible. Dr. Worrell of neurosurgery wants to see her in his clinic in 6 weeks to undergo thoracic x- rays to ensure no further collapse of the T7 and T9 vertebral bodies as she has extensive bony and some epidural component of the tumor from T5-T9 levels but there was minimal cord compression and no immediate neurosurgical intervention was deemed necessary at this time. Impairment group: orthopedic disorders NOTE Document ONLY ONE Impairment Group Orthopedic disorders: unilateral hip fracture Etiologic diagnosis: Pathological right femoral neck fracture History Preadmit diagnostic/labs: Date: 12/16/23 12/15/23 WBC: 11.0 HGB: [...] to the bones is again demonstrated. 12/13 MRI T-SPINE: Findings consistent with extensive metastatic involvement seen throughout the thoracic spine. There is significant epidural component at T8 seen left ventral to the thecal sac and left laterally with perhaps minimal cord compression and there is a left paracentral ventral epidural component identified at T7 without definite cord compression. Multilevel spondylosis is also seen resulting compromise of the canal at T9-T10 and at T10-T11 12/13 CT RT LOWER EXTR: Extensive lytic [...] cyst 12/12 XR HIP/PELVIS: Subcapital right femoral fracture. Other supporting diagnostics: Past medical history: Reports: Hypertension, Thyroid disorder. Denies: Alcoholism/subst abuse, Anemia , Arthritis, Asthma, Atrial fibrillation, Cancer, Congestive heart failure, COPD , Coronary artery disease, Dementia, Depression/mood disorder, Diabetes mellitus , GERD/gastritis, Kidney disease/stones, Seizure disorder, Transient ischemic attack, , Abdominal aortic aneurysm, ADD/ADHD, AIDS, Angina pectoris, Anticoagulant therapy, Atrial flutter, Bleeding disorder, BPH, C diff colitis, Cardiac dysrhythmias, Chronic pain, Cirrhosis, Congenital anomalies, Dyslipidemia, Gallbladder dis/stones, GI bleed, Glaucoma, Headache disorder, Hepatitis, HIV, Intracranial hemorrhage, Ischemic stroke, Motor dysfunction, Pancreatitis, Peptic ulcer disease, Periph arterial disease, Pressure ulcer, Prior AR, Schizophrenia, Sickle cell disease, Steroid use, Transfusion history, Tuberculosis, Urinary tract infection, Venous thromboembolism. Additional medical history: Matheus breast cancer. Hypertension, hypothyroidism Past surgical history: Reports: Breast biopsy/procedure. Denies: Abdominal surgery, Appendectomy, Bariatric procedure, CABG, Carotid endarterectomy, Cholecystectomy, , Dialysis shunt/AV fistula, Heart valve procedure, Hernia repair, Hysterectomy, Pacemaker, Spine surgery, Splenectomy, Tonsillectomy, Transplant recipient, Vascular procedure, , Amputation, Anesthesia complications, Bilateral tubal ligation, Bladder surgery, Carpal tunnel release, Cranial procedure, D C, Eye surgery, Feeding tube, Hip procedure, ICD, Indwelling IV catheter, Knee procedure, Lithotripsy, Lung surgery, Nephrectomy, PCI, Prostate surgery, Thyroidectomy, Tracheotomy, CIT[employer] shunt. Additional surgical history: Bilateral Breast lumpectomy for bilateral breast can cer Family history: Denies: Abdominal aortic aneurysm, Anemia, Asthma, CAD < 40 yrs old, Cancer, Coagulopathy, Dementia/Alzheimer's dis, Depression/mood disorder, Diabetes, Heart disease, Hypertension, Kidney disease/stones, Seizure disorder, Stroke/TIA , Subarachnoid hemorrhage, Sudden cardiac , Thyroid disorder, , Connective tissue dis, Gallbladder disease, Hyperlipidemia, Neurofibromatosis, Sickle cell disease. Alcohol use: Denies EtOH use Drug use: Denies recreational drugs Smoking status for patients 13 years old or older: Never Smoker Other social history: Primary family support, , retired, lives alone and daughter lives 1/2 hr away and involved in her care Additional social history: Primary family support, , retired, lives alone and daughter lives 1/2 hr away and involved in her care. She lives in a third floor apartment but the elevator is broken. Her daughter is an occupational therapist. She has a rollator which is borrowed from a friend. She has a single-point cane. She has no PCP. She has a tub shower combination and her daughter will get her a tub transfer bench. Medications: Home Medications: ALBUTEROL (ALBUTEROL HFA 90 MCG/ACT) (Unknown Dose) ENOXAPARIN [...] PRN CONSTIPATION dexAMETHasone 6 MG PO TID Allergies: Coded Allergies: aspirin (NAUSEA 12/14/23) cefdinir (NAUSEA 12/14/23) codeine (NAUSEA 12/14/23) morphine (NAUSEA 12/14/23) ROS ROS Constitutional: Denies: chills, generalized weakness. Respiratory: Denies: DOBSON, productive cough (sputum), SOB. Cardiovascular: Denies: chest pain, palpitations. GI: Denies: abdominal pain. : Denies: dysuria. Objective Functional Assessment/Exam Extremities: edema Physical Exam VS: Last Documented: Result Date Time Pulse Ox 98 12/16 1552 B/P 186/75 12/16 1552 B/P Mean 112.5 12/16 1552 Temp 97.7 12/16 1552 Pulse 58 12/16 1552 Resp 20 12/16 1552 O2 Delivery Room air 12/16 0929 PATIENT WEIGHT: Weight (lb): 187 Weight (oz): 6.29 Weight (kg): 85.000 General appearance: alert, awake, oriented HEENT: mucosal membranes moist, pupils reactive to light Neck: supple Cardiovascular: regular rate rhythm Respiratory: clear bilaterally Abdomen: obese, soft, non-tender Skin: incision, (COVERED WITH AQUACEL), dry, intact Musculoskeletal - general: Musculoskeletal - general: normal muscle mass, normal tone, range of motion normal Neuro/SINKER PULLER: alert, oriented X 3, CNII-XII intact, no motor deficits, no sensory deficits Results Findings/Data: Laboratory Tests: 12/16 12/16 0500 0500 Chemistry Vitamin B12 (193 - 986 pg/mL) 899 Vitamin D 25-Hydroxy (30 - 100 ng/mL) 37.7 Folate (3.1 - 17.5 ng/mL) 8.2 TSH (0.42 - 5.47) 4.79 Microbiology: 12/16 0400 NASAL: MRSA DNA Surveillance Screen - RECD Diagnosis, Assessment Plan Diagnosis, Assessment Plan Problem List/A P: 1. Cancer of left breast, stage 4 2. HTN (hypertension) 3. Pathologic fracture of neck of right femur Free Text A P: Advanced Care Plan for patients age > 65 *Advanced Care Plan Discussed: [ X]Yes who, living will, POA, and code status FULL [ ] No explain why] *Surrogate Decision Maker: [...] a surgical oncologist that she has been seen at [facility] in [place]. She will need to follow with Dr. Mosher or another oncologist after discharge. Plan comprehensive rehab with PT and OT. Will manage her pain and follow incision for signs and symptoms of infection drainage or breakdown. Continue DVT prophylaxis. Will handle medical problems as they arise throughout her hospital course Review of comorbidities: Hypertension, metastatic breast cancer Compare to PAS: No change Estimated length of stay: 2 WEEKS Acute Rehab Attestation NOTE Attestation is for MD only Complex acute rehab needs: Custom therapy tx plan, Mgt of complex Co-morb, Multiple consulting MDs, New medical diagnosis, Live alone/prev independ, Postsurgery req mgt/care, Complex pain management at 1616 RPT #:[id number] END OF REPORT [facility] 2023-12-17 12:35:00 [facility] ([facility]) Hospitalist Progress Note REPORT#:[id number] REPORT STATUS: Signed REPORT INITIALIZATION DATE:12/17/23 TIME: 123 PATIENT: JUSTYNA GAMING UNIT #: [id number] ROOM/BED: [place] [address] : 49 AGE: 73 SEX: F ATTEND: Fern Mata MD ADM AUTHOR: Travis Chavez DO REPT SERVICE DT/TIME: 12/17/23 1235 * ALL edits or amendments must be made on the electronic/computer document * Subjective Chief complaint: Patient complains of constipation HPI: 3 WF WITH HTN, BREAST CANCER, S/P CHEMO/XRT IN 2013, NOW ADMITTED FOR RIGHT HIP PAIN, FOUND TO HAVE PATHOLOGIC FRACTURE, AND NEW DIFFUSE VERTEBRAL METS WITH EPIDURAL MASS AND PARTIAL CORD COMPRESSION. SEEN ORTHO/ONC/NS/REHAB, AND PLAN FOR IRF COURSE AND XRT DURING IRF, AND OUTPATIENT CHEMO. Orthopedics consulted, patient taken to the OR for right hemiarthroplasty on . PMR was consulted and patient was transferred to rehab unit for inpatient rehab. Review of Systems GI: Reports: constipation. All systems rev neg: except as noted Objective General VS/I O: Vital Signs: Date Time Temp Pulse Resp B/P [...] scale Measurement Method PATIENT WEIGHT: Weight (lb): 187 Weight (oz): 6.29 Weight (kg): 85.000 Results Findings/Data: Laboratory Tests 12/16 12/16 0500 0500 Chemistry Vitamin B12 (193 - 986 pg/mL) 899 Vitamin D 25-Hydroxy (30 - 100 ng/mL) 37.7 Folate (3.1 - 17.5 ng/mL) 8.2 TSH (0.42 - 5.47) 4.79 Results: labs reviewed, vital signs reviewed Free Text Obj Notes Free Text Obj Notes: General appearance: chronically ill appearing, obese, alert, awake Head/Eyes: Atraumatic, normocephalic Neck: no JVD Cardiovascular: normal heart sounds, regular rate rhythm Respiratory: aerating well, clear to auscultation, symmetric expansion Abdomen: obese, non-tender, normal bowel sounds, soft Extremities: TRACE PRETIBIAL EDEMA Musculoskeletal: decreased ROM Neuro/SINKER PULLER: alert, oriented X 3 Skin: normal color Psychiatry: normal affect Diagnosis, Assessment Plan Free Text DxA P Notes Free text DxA P notes: Right femoral PATHOLOGIC Fracture/Right hip fracture, S/P HEMIARTHROPLASTY - - ORTHO SEEN -12/15: transferred to inpatient rehab unit MET VERTEBRAL METS/Multiple lytic bone lesions/PARTIAL CORD COMPRESSION DUE TO EPIDURAL MASS - NS/ONC SEEN, PLAN FOR XRT I/P WHILE IN REHAB -Dexamethasone 6 mg 3 times daily Hypercalcemia OF MALIGNANCY - RESOLVED WITH ZOMETA X1 AND IVF BY ONC Hypertension - STABLE, CONT HOME MEDS (COZAAR/HCTZ) Asthma/pneumonia - DONE WITH ABX History of breast cancer WITN BNY METS - NEEDS O/P CHEMO BY ONC, PATH PENDING Constipation aggressive bowel regimen DVT PX - LOVENOX 30 BID Plans Reviewed imaging reports, concerning for metastatic process Orthopedic consulted in the ER Consider oncology consult in the morning Analgesia as tolerated Iv zithromax Duoneb breathing treatment q4h prn Supp O2 as needed IV fluid, monitor serum calcium. IV prn hydralazine for elevated blood pressure Further care per clinical course CODE STATUS: full code. 12/14- s/p right hip arthroplasty for pathologic hip fracture. Multiple mets of the spine. XRT plans on going emergency radiation treatment ROSA while in the hospital for 5 treatments. at 1239 RPT #:[id number] END OF REPORT [facility] 2023-12-17 08:57:00 [facility] ([facility]) Tevin/Oncology Progress Note REPORT#:[id number] REPORT STATUS: Signed REPORT INITIALIZATION DATE:12/17/23 TIME: 856 PATIENT: JUSTYNA GAMING UNIT #: [id number] ROOM/BED: [place] [address] : 49 AGE: 73 SEX: F ATTEND: Fern Mata MD ADM AUTHOR: Leanna Mosher MD REPT SERVICE DT/TIME: 12/17/23 0857 * ALL edits or amendments must be made on the electronic/computer document * Subjective Chief Complaint: fu met breast cancer and path hip fracture transferred to rehab Objective Physical Exam VS: Vital Signs Date Temp Pulse Resp B/P B/P Mean Pulse Ox FiO2 12/15-12/16 36.6-36.7 56-58 16-18 151-158/68-77 95.7-104.1 94-95 Last Documented: Result Date Time Pulse Ox 95 12/16 628 B/P 155/72 12/16 628 B/P Mean 99.5 12/16 628 Temp 36.6 12/16 628 Pulse 56 12/16 06 Resp 16 12/16 628 General appearance: alert, awake, oriented HEENT: pupils reactive to light Cardiovascular: regular rate and rhythm, normal heart sounds Respiratory: aerating well, symmetric expansion, no distress Abdomen: non-tender, soft, no mass/organomegaly Extremities: moves all Neuro/SINKER PULLER: alert, oriented X 3, no motor deficits, no sensory deficits Current Medications Medications: Active Meds + DC'd Last 24 Hrs Hydrochlorothiazide (hydroCHLOROthiazide) 12.5 MG DAILY PO Losartan [...] (MIRALAX) 17 GM BID PRN PRN PO Results Findings/Data: Laboratory Tests Test Result Date Time Chemistry Vitamin [...] 0859 Losartan Potassium 25 MG DAILY 12/16 09 AC PO 03/16 0859 Bisacodyl 10 MG [...] Diagnosis, Assessment Plan Free Text DxA P Notes Free Text DxA P Notes: 1. Breast cancer 2. Metastatic malignancy likely recurrent breast 3. Spinal stenosis due to metastaic disease 4. pathological hip fracture 5. Hypercalcemia of maligancy PLan recommend MRI brain if not already doen due to extensive metastatic disease. s/p right hip surgery on 12/14 tissue sent for path results pending for confirmation and molecular tumor profiling spoke with DR Hurtado and Dr Worrell and DR Payne to coordinate care. continue dex 4mg q 8 and will slowly taper after competion of xrt. Plan is short course of IP rehab and OP XRT as she does not have any impending neurological dysfunction and insurance not able to provide ambulance rides for XRT. s/p zometa on 12/14 - monitor calcium monitor creatinine. IVF hydraion pending ca and path at 0905 RPT #:[id number] END OF REPORT [facility] 2023-12-16 14:14:00 [facility] ([facility]) Orthopaedic Progress Note REPORT#:[id number] REPORT STATUS: Signed REPORT INITIALIZATION DATE:12/16/23 TIME: 1413 PATIENT: JUSTYNA GAMING UNIT #: [id number] ROOM/BED: [place] [address] : 49 AGE: 73 SEX: F ATTEND: Rah Guzman MD ADM AUTHOR: Josephine Cedillo REPT SERVICE DT/TIME: 12/16/231413 * ALL edits or amendments must be made on the electronic/computer document * Subjective HPI: patient motivated and sitting in bedside chair visiting with daughter, all questions answered and the patient states her pain in controlled; denies SOB and CP and noted to not be wearing oxygen today. Looking to be DC to IPR today Objective VS: Last Documented: Result Date Time Pulse Ox 95 12/15 0908 O2 Delivery Room air 12/15 0908 B/P 127/63 12/15 0734 B/P Mean 84.1 03/28 0734 Temp 36.6 12/15 0734 Pulse 68 12/15 0734 Resp 16 12/15 0734 O2 Flow Rate 2 12/14 1604 PATIENT WEIGHT: Weight (lb): Weight (oz): Weight (kg): 85.000 Medications: Active Meds + DC'd Last 24 Hrs Hydrocodone Bitart/Acetaminophen (NORCO 5/325) 1 TAB Q4H PRN PRN PO Tramadol HCl (ULTRAM) 50 MG Q4H PRN PRN PO Enoxaparin Sodium (lovENOX) 30 MG Q12HR SUBQ Cefazolin Sodium (KEFZOL OR ANCEF) 1 GM Q8H IV (DC) Sodium Chloride (SODIUM CHLORIDE) 10 ML Miscellaneous Information (LOVENOX PHARMACY TO DOSE) 1 EACH ASDIR SUBQ ( CKD) Diphenhydramine HCl (BENADRYL) 12.5 MG PACU ONCE [...] Sodium Chloride (SODIUM CHLORIDE 0.9%) 250 ML Mupirocin (BACTROBAN 2% 22 GM OINTMENT) 1 [...] IV Sodium Chloride (SODIUM CHLORIDE 0.9%) 250 ML Hydralazine HCl (APRESOLINE) 10 MG Q6H PRN PRN IV Acetaminophen (TYLENOL) 650 MG Q4H PRN PRN PO Al Hydrox/Mg Hydrox/Simethicone (MYLANTA) 30 ML Q4H PRN PRN PO Docusate Sodium (COLACE) 100 MG BID PRN PRN PO Sodium Chloride (SODIUM CHLORIDE 0.9%) 1,000 ML .[id number] IV (DC) Free Text Obj Notes Free Text Obj Notes: The patient is alert and oriented All 4 [...] is a 2+ DP pulse Diagnosis, Assessment Plan Free text A P: Start date: 12/15/23 Dr. Hurtado Post-procedure diagnosis: right pathologic femoral neck fracture Procedures performed: Right hip hemiarthroplasty Post op course: -WBAT operative right lower extremity with posterior hip precautions -DVT ppx - per primary, recommend Lovenox or ASA 325mg BID -Antibiotics - SCIP -OK to d/c when cleared from PT at 1419 at 3436 RPT #:[id number] END OF REPORT [facility] 2023-12-16 13:53:00 [facility] ([facility]) Rehab Preadmission Screen REPORT#: REPORT STATUS: DATE:12/16/23 TIME: 1353 PATIENT: JUSTYNA GAMING UNIT #: ROOM: BED: : 49 AGE: 73 SEX: F ATTEND: Fern Mata MD PROJECTED ADM AUTHOR: Fern Mata MD REP SRV REP SRV TM: 1353 * ALL edits or amendments must be made on the electronic/computer document * IRF Preadmission Screen Information From CRS PAS CRS PAS documentation: The data set between the solid lines has been imported from CRS PAS documentation. PREADMISSION INFORMATION: DEMOGRAPHICS: Assessment date: 12/16/23 Assessment time: 1120 Patient has an Advanced Directive: No Content of advance directive/living will/plan of care: Copy of advance directive on chart: Referring physician: RAH MORENO-HOSPITALIST Primary care provider: Consulting physician(s): FERN VARGAS-PMR LEANNA FRAZIER-TEVIN.ONC. ,[facility]-NEUROSURGERY ALIRIO DU-ORTHOPEDIC Referral contact name: [facility] Referral contact number: Referring setting: Acute hospital Room number: 434 IMPAIRMENT GROUP: Impairment group: Unilateral hip fracture Etiologic diagnosis: SUBCAPITAL RIGHT FEMORAL FRACTURE WITH SUPERIOR DISPLACEMENT REVIEW OF MED CONDITIONS: Date of onset: 12/15/23 Current surgery date and type: 12/14 Right hip hemiarthroplasty Active comorbid conditions: METASTATIC VERTEBRAL METS, PARTIAL CORD COMPRESSION, HYPERCALCEMIA, HTN, ASTHMA, PNEUMONIA, BREAST CANCER, SPINAL STENOSIS Past medical and surgical history: hypertension, hypothyroidism, asthma, spinal stenosis and breast cancer Had major surgery within 100 days of admission: Yes Risk for medical/clinical complications: Anemia, BP fluctuation, Cardiac instability, Constipation, DVT, Depression, Incisional dehiscence, Infection, Injury d/t falls, Nutritional compromise, Pain, Skin breakdown Acute hospital stay summary: Justyna Gaming is a 73-year-old female patient that presented to [facility] ED on 12/12 with a [...] asthma, pneumonia pain. Patient is improving but still needing close medical management to monitor vital signs, labs, DVT prophylaxis, pain management, wound care, and to maintain bowel and bladder continence. She is receiving IV Decadron q 6H IV Zithromax daily. She lives home alone and prior to hospitalization was modified independent using a cane or rollator and performing all self-care. Due to onset of weakness and acute functional decline, PT, OT, and Rehab were consulted. She is currently needing minimal to moderate assistance for function mobility and ADLs. Patient will require IRF admission as well as continued medical management by a multidisciplinary team. Patient is motivated, willing and able to participate in 3 hours of therapy per day, 5 days per week with the goal of regaining functional [...] 3 Wt lbs 187.000 BMI 33.1 SUPPORTING DIAGNOSTICS/LABS/RADIOLOGY/CARD IOLOGY: Date: 12/16/23 12/15/23 WBC: 11.0 HGB: 10.4 [...] to the bones is again demonstrated. 12/13 MRI T-SPINE: Findings consistent with extensive metastatic involvement seen throughout the thoracic spine. There is significant epidural component at T8 seen left ventral to the thecal sac and left laterally with perhaps minimal cord compression and there is a left paracentral ventral epidural component identified at T7 without definite cord compression. Multilevel spondylosis is also seen resulting compromise of the canal at T9-T10 and at T10-T11 12/13 CT RT LOWER EXTR: Extensive lytic [...] cyst 12/12 XR HIP/PELVIS: Subcapital right femoral fracture. Other supporting diagnostics: RESPIRATORY STATUS: Respiratory treatments: O2 liters per minute: Respiratory status: NEUROLOGIC STATUS: Neurologic status: Alert, Oriented to person, Oriented to place, Oriented to time, Oriented to situation, Follows simple commands, Follows complex commands Patient's mood and behavior: Appropriate Hand dominance: Right BOWEL/BLADDER: Continent of bladder for developmental age: Yes Number of bladder accidents in last 48 hours: Catheter type: Insertion date: Bladder aids: Bladder comment: Continent of bowel for developmental age: Yes Number of bowel accidents in last 48 hours: Date of last BM: Colostomy: No Ileostomy: No Bowel aids: Bowel comment: SKIN: Skin alteration: Present/Exists SKIN ALTERATION 1: Type: Surgical wound Location: Hip right Stage: Description: Instance list status: Active Skin alteration details: wound base not visible Wound surrounding tissue appearance: [place] Wound surrounding tissue temperature: Warm Wound closure: Intact Wound drainage amount: None Dressing status: Intact Dressing type: silver mepilex Packing removed: No Alteration photographed: No Wound dressing change date: 12/15/23 SKIN ALTERATION 2: Type: Location: Stage: Description: SKIN ALTERATION 3: Type: Location: Stage: Description: SKIN ALTERATION 4: Type: Location: Stage: Description: EATING/NUTRITIONAL: Nutritional intake: PO regular food Eating compensatory strategies: Medication administration: IV, Subcutaneous, Topicals, Medications whole REHAB NEEDS: Special rehabilitation needs: IV/PICC/CVC, Intravenous therapy, Respiratory therapy Special rehabilitation precautions: Hip, Safety/fall Rehabilitation precaution detail: WEAKNESS FUNCTIONAL ASSESSMENT: FUNC. TASK PRIOR LOF CURRENT LOF EXPECTED LOF Bathing Independent Total assistance Setup/cleanup ONLY U.B. Dressing Independent Supervise/touch asst Independent L.B. Dressing Independent Total assistance Setup/cleanup ONLY Bed/Ch Transf. Independent Partial/moderate asst Independent Toilet Transfer Independent Partial/moderate asst Independent Stairs Independent Total assistance Setup/cleanup ONLY Locomotion Independent Partial/moderate asst Independent Locomotion prior device use: Rollator Description of prior level of locomotion: USED ROLLATOR OR CANE Locomotion current device: Standard walker Locomotion current distance traveled without a rest break: 3 STEPS Description of current level of locomotion: PATIENT STOOD FROM EOB WITH MIN A WITH RW AND TOOK 2-3 LATERAL STEPS WITH RW TO HEAD OF BED. 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 Prior living situation: Home Living with: Alone Living with comment: ANTICIPATED DC PLAN/POST IRF: Primary support contact: KATIUSKA TULLOUS Relationship to patient: CR Phone number 1: [phone] Phone number 2: Caregiver availability: 24 hours a day Caregiver can provide: Physical assistance Patient/caregiver goals/preferences: TO DO REHAB THEN OUTPATIENT XRT Expected discharge destination: Home Expected discharge physical layout: 3RD FLOOR APARTMENT Number of external stairs: Number of internal stairs: Railing details: Grab bars location: Barriers to discharge: None Options discussed with patient: Yes Options discussed with caregiver: Yes Patient agrees with program requirements: Yes ACTIVITY TOLERANCE: Current treatment interventions: Occupational therapy, Physical therapy, Respiratory therapy Patient able to tolerate 3 hours of therapy a day: Yes Patient able to tolerate 15 hours of therapy a week: Altered therapy schedule comment: ACUTE INPATIENT REHAB PLAN: Estimated length of stay in days: 15 Anticipated services in acute inpatient rehab: Rehab nursing 12/04, construction manager, Occupational therapy, Physical therapy, Dietitian, Respiratory therapy Acute hospital documents reviewed prior to admission decision: Acute History/ Physical, Consult notes, Operative reports, Progress notes, Lab/diagnostics, Therapy notes, Vital signs, Other ancillary notes CRS ELECTRONIC SIGNATURE: CRS #1 electronic signature: ANJELICA CROWE CRS credentials: LINDARN Date: 12/16/23 Time: 1158 CRS #2 electronic signature: ROBER credentials: Date: Time: CRS #3 electronic signature: CRS credentials: Date: Time: Provider Pre-Admit Summary Acute IP rehab admit: criteria met MD determination Based upon my evaluation and review of the supporting assessment documentation and consultation with the preadmission mission assessment specialist, I have determined, prior to [...] mgt/care, Complex pain management at 1355 RPT #:[id number] END OF REPORT [facility] 2023-12-16 11:36:00 [facility] ([facility]) Hospitalist Discharge Summary REPORT#:[id number] REPORT STATUS: Signed REPORT INITIALIZATION DATE:12/16/23 TIME: 1135 PATIENT: JUSTYNA GAMING UNIT #: [id number] ROOM/BED: [place] [id number] : 49 AGE: 73 SEX: F ATTEND: Rah Guzman MD ADM AUTHOR: Rah Guzman MD REPT SERVICE DT/TIME: 12/16/23 1136 * ALL edits or amendments must be made on the electronic/computer document * General Information Free Text General Notes Free Text General Notes: NO COMPLAINTS, AWAITS TRANSFER TO IRF ONCE ACCEPTED. Date of admission: Observation Start Date: Date of admission: 12/13/23 Discharge date: 12/16/23 Discharge diagnosis: SEE BELOW. Hospital course: 73 WF WITH HTN, BREAST CANCER, S/P CHEMO/XRT IN 2013, NOW ADMITTED FOR RIGHT HIP PAIN, FOUND TO HAVE PATHOLOGIC FRACTURE, AND NEW DIFFUSE VERTEBRAL METS WITH EPIDURAL MASS AND PARTIAL CORD COMPRESSION. SEEN ORTHO/ONC/NS/REHAB, AND PLAN FOR IRF COURSE AND XRT DURING IRF, AND OUTPATIENT CHEMO. PATH REPORT IS PENDING AT THIS TIME BUT SUSTECTED METS FROM BREAST CANCER. Pt. condition on discharge: improved, stable Free Text DxA P Notes Free text DxA P notes: Right femoral PATHOLOGIC Fracture/Right hip fracture, S/P HEMIARTHROPLASTY [...] PENDING DVT PX - LOVENOX 30 BID Plans Reviewed imaging reports, concerning for metastatic process Orthopedic consulted in the ER Consider oncology consult in the morning Analgesia as tolerated Iv zithromax Duoneb breathing treatment q4h prn Supp O2 as needed IV fluid, monitor serum calcium. PTH ordered IV prn hydralazine for elevated blood pressure, resume home medications when updated Further care per clinical course CODE STATUS: full code. 12/14- s/p right hip arthroplasty for pathologic hip fracture. Multiple mets of the spine. XRT plans on going emergency radiation treatment ROSA while in the hospital for 5 treatments. Med Rec Med Rec Discharge meds: Continue taking these medications: ALBUTEROL (ALBUTEROL HFA 90 MCG/ACT) (Unknown Strength) INHALER Unknown Dose Start taking the following new medications: ENOXAPARIN (LOVENOX) 30 MG/0.3 ML DISP.SYRIN 30 MILLIGRAM SUBCUTANEOUS EVERY 12 HOURS. Days = 30 No Refills LOSARTAN (COZAAR) 25 MG TAB 25 MILLIGRAM ORAL DAILY. Days = 30 Qty = 30 No Refills ACETAMINOPHEN (TYLENOL) 325 MG TAB 650 MILLIGRAM ORAL EVERY 4 HOURS NEEDED. as needed for PAIN SCALE 1-3/ TEMP ABOVE 100F Days = 30 No Refills [...] = 14 Qty = 42 No Refills Objective VS/I O Last Documented: Result Date Time Pulse Ox 95 12/15 0734 B/P 127/63 12/15 0734 B/P Mean 84.1 12/15 0734 Temp 97.9 12/15 0734 Pulse 68 12/15 0734 Resp 16 12/15 0734 O2 Delivery Room air 12/15 0432 O2 Flow Rate 2 12/14 1604 General appearance: chronically ill appearing, obese, alert, awake Head/Eyes: WEARING EYEGLASSES Neck: no JVD Cardiovascular: normal heart sounds, regular rate rhythm Respiratory: aerating well, clear to auscultation, symmetric expansion Abdomen: obese, non-tender, normal bowel sounds, soft Extremities: TRACE PRETIBIAL EDEMA Musculoskeletal: decreased ROM Neuro/SINKER PULLER: alert, oriented X 3 Skin: normal color Psychiatry: normal affect Results Findings/Data: Laboratory Tests: 12/15 0539 Chemistry Sodium (134 - [...] (Auto) (14.0 - 32.0 %) 5.[address] [place] % (Auto) (4.8 - 9.0 %) 7.0 Eos % (Auto) (0.3 - 3.7 %) 0.0 L Baso % (Auto) (0.0 - 2.0 %) 0.1 Neut # (Auto) (2.0 - 7.6 x10 3/uL) 9.46 H Lymph # (Auto) (1.0 - 3.8 x10 3/uL) 0.[address] [place] # (Auto) (0.1 - 0.8 x10 3/uL) [...] 0.1 x10 3/uL) 0.00 Free Text Obj Notes Free Text Obj Notes: General/Const Awake, Alert, oriented HENT Head atraumatic, normocephalic, ears/nose/throat airway patent, TMs clear bilaterally MS Neck Neck Supple, no swelling, no tenderness to palpation Resp/Chest CTAB, No respiratory distress, no rales, no rhonchi, no wheezing Cardiovascular Normal rate, regular rhythm, heart sounds. No rubs murmurs gallops Abdomen/GI Normal bowel sounds, soft, nontender, nondistended. No rebound or guarding MS No bony deformity, 2+ DP pulses bilaterally. Some mild swelling to the right lower extremity Skin Skin Warm, Dry, no abrasions, rashes, lacerations Neurologic Neurologic Oriented X3, Speech NL, no focal neuro deficits, CN 2-12 intact, 5 /5 strength, sensation intact Discharge Instructions PCP PCP follow-up: PCP: No Primary or Family Physician Discharge to: Inpatient Rehab Facility Additional Discharge Routines: PCP Follow-Up Diet: Low Sodium Activity: As Tolerated Follow-up Appointments PCP follow-up: PCP: No Primary or Family Physician PCP follow up timeframe: In 2-3 weeks Special instructions: PLEASE NOTIFY THE ATTENDING ON ARRIVAL TO THE REHAB UNIT. Consulting provider 1: Provider 1: Leanna Mosher MD Specialty: Hematology and Oncology Consult follow up timeframe: In 2-3 weeks Quality: Discharge Advanced Care Plan 65 or Older Discussed with: patient, HER NURSE at 1142 RPT #:[id number] END OF REPORT [facility] 2023-12-16 10:46:00 [facility] ([facility]) Acute Rehab Consult REPORT#:[id number] REPORT STATUS: Signed REPORT INITIALIZATION DATE:12/16/23 TIME: 1045 PATIENT: JUSTYNA GAMING UNIT #: [id number] ROOM/BED: [place] [address] : 49 AGE: 73 SEX: F ATTEND: Rah Guzman MD ADM AUTHOR: Haylee Hamilton PA-C REPT SERVICE DT/TIME: 12/16/23 1046 * ALL edits or amendments must be made on the electronic/computer document * History of Present Illness HPI Reason for consult: evaluation of Rehab needs PCP: PCP: No Primary or Family Physician Requesting clinician: Trauma Etiologic diagnosis: R Hip fracture HPI: 73 years old RHWF, admitted emergently due to [...] XRT and chempotherapy. She has been followed ( last in ) at [facility] by Dr. Mcqueen (breast surgeon) since then. Patient is lying in bed with daughter by her bedside and cannot move her right hip due to severe pain but can move her distal RLE (foot) quite well. She does mention radiating pain down her leg (RLE) and is not sure about the numbness in legs. Bladder and bowel habits are normal by history. Functional Status OT evaluation: Pertinent Medical History: PATIENT IS A 73 Y/O FEMALE WITH PMHX OF HTN, HYPOTHYROIDISM, ASTHMA, SPINAL STENOSIS AND BREAST CANCER. SHE PRESENTED TO ER ON ACCOUNT OF INABLILITY TO WALK OF ABOUT 90 DAYS DURATION. SHE ALSO NOTED SUDDEN EPISODE OF R HIP PAIN. THE PAIN IS WORSE WITH WALKING. PATIENT BECAME UNBEARABLE AND IT WAS DIFFICULT FOR PATIENT TO AMBULATE. SHE DENIES ANY HX OF FALL. IMAGING DEMONSTRATED RIGHT HIP FX AND ALSO RIGHT FEMORAL FX. ORTHOPEDIC UNIT HAS BEEN CONSULTED. PATIENT IS BEING ADMITTED FOR FURTHER EVALUATION OF SUSPECTED PATHOLOGICAL FX. SHE HAS A HX OF BREAST CANCER. HER LAST VISIT TO HER DOCTOR WAS 2022. MRI THORACIC SPINE W/O CON 12/14/23: IMPRESSION: FINDINGS CONSISTENT WITH EXTENSIVE METASTATIC INVOLVEMENT SEEN THROUGHOUT THORACIC SPINE. THERE IS SIGNIFICANT EPIDURAL COMPONENET AT T8 SEEN LEFT VENTRAL TO THE THECAL SAC AND LEFT LATERALLY WITH PERHAPS MINIMAL CORD COMPRESSION AND THERE IS A LEFT PARACENTRAL VENTRAL EPIDURAL COMPONENT IDENTIFIED AT T7 WITHOUT DEFINITE CORD COMPRESSION. MULTILEVEL SPONDYLOSIS IS ALSO SEEN RESULTING COMPROMISE OF THE CANAL AT T9-T10 AND T10-T11. Language Spoken: Mosotho Depalletizer Operator Provided: No Hand Preference: Right Hand Prior Level of Function: LIVING ALONE IN 3FLR APT AND PERFORMING ALL SELF CARE AND MOBILITY MOD INDEP. 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 Patient/Family Goals: TO GO TO RADIATION, DO REHAB AND THEN DC HOME System Evaluation/Within Functional Limits Assessment Data: UPPER EXTREMITY FUNCTION WFL: No FUNCTIONAL MOBILITY WFL: No ACTIVITIES OF DAILY LIVING WFL: No NEUROLOGICAL WFL: Yes SENSATION WFL: Yes COGNITION WFL: No VISUAL/PERCEPTION WFL: Yes COMMUNICATION WFL: Yes CARDIORESPIRATORY WFL: Yes EDEMA Y/N: Yes INTEGUMENTARY WFL: Not tested SKIN ALTERATION CMT: SEE NURSING ASSESSMENT Plan of Care Type: Occupational Therapy Review Plan of Care: Yes Plan of Care - LT ST Goals: Yes Treatment Details: Yes Enter OT Clarification Orders: Yes Patient/Caregiver informed of Risks of not participating in Occupational Therapy: Y Patient/Caregiver informed of Benefits of participating in Occupational Therapy: Y Therapist recommended discharge needs: PostAcute Rehabilitation Potential: Good for Goals Recommendations: Case Management PT REFERRAL Modified [place] Score: No MR Screening Performed: Pre-Morbid Screening Document Pain/Education: No Post Treatment Precautions In Bed, Rails Up Call Light in Reach Family at Bedside Nursing Notified Pulse OX in Place Telephone in Reach Evaluation Type: High Complexity Reason for Eval Complexity: Impaired balance Impaired Strength Impaired Endurance Impaired Funct. Mobility Increased Pain Impaired Self Care Skills Impaired Gait Multiple Comorbidities Medically Complex Document OT charges: EVAL OT HIGH COMP [id number] FT/THERAP. ACTIVITY [id number] SELF/HOME MGT/ADL [id number] Comments: SKILLED OT EVALUATION COMPLETED FOR PATIENT WITH PLOF AND PERFORMANCE DEFICITS PREVIOUSLY NOTED. PATIENT WILL BENEFIT FROM CONTINUED SKILLED OT SERVICES TO FACILITATE MAXIMAL SAFETY AND INDEP WITH ADLS. PRATIMA IS REPORTING SLIGHT DISCOMFORT WITH STANDING AT EOB WITH RW DURING EVAL/TREAT. PATIENT HAS ABDUCTOR WEDGE IN PLACE IN BED IN HIGH MEDINA POSITION WHEN OT ARRIVES. DAUGHTER IS AT BEDSIDE. OT REVIEWS POSTERIOR HIP PRECAUTIONS WITH PATIENT AND DAUGHTER. BEGINNING TRAINING WITH USE OF DIRECTOR OF SALES MARKETING, SOCK AIDE, DRESSING STICK, LONG HANDLE BATH SPONGE ISSUED TO PATIENT. PATIENT VERBALIZED UNDERSTANDING. DAUGHTER IS A RETIRED OCCUPATIONAL THERAPIST AND WILL ASSIST TEMOETJanee UPON DC HOME. PATIENT MOVED WITH MOD A SLOW TO SIT EOB, MIN A WITH SLIGHT BED ELEVATION TO STAND WITH RW WITH VERBAL CUES FOR HAND PLACEMENT TO PUSH UP FROM BED AND USE OF BEDRAIL. PATIENT WAS ABLE TO MAKE 2-3 LATERAL STEPS WITH RW AT BEDSIDE TO MOVE UP TO HEAD OF BED WHILE BED LINENS ARE CHANGED. PATIENT WAS TRAINED IN USE OF BED CONTROLS AND HAND PLACEMENT WITH BED RAIL AND USE OF HER L LE TO SCOOT UP IN BED. PATIENT DEMONSTRATED GOOD UNDERSTANDING AND ASSISTED WITH BED MOBILITY. ABDUCTION WEDGE WAS REPOSITIONED BACK AND PATIENT POSITIONED WITH PILLOWS FOR COMFORT. ALL QUESTIONS ANSWERED AND ALL NEEDS MET. PATIENT IN SEMI- MEDINA WITH DAUGHTER AT BEDSIDE. CALL LIGHT WITHIN REACH. If this is the patient's last treatment, this entry serves as the discharge summary: Y Start Time: 1345 Stop Time: 1400 Eval Time ( minutes): 0:15 Treatment Time (minutes): 75 Completed by: Yareli Welch UPPER EXTREMETY FUNCTION UPPER BODY FUNCTION Items determined to be outside Functional Limits are as follows: RANGE OF MOTION (Degrees): Active unless otherwise noted RIGHT UPPER EXTREMITY ROM: Yes RUE ROM Measurements and Cmts: WFL LEFT UPPER EXTREMITY ROM: Yes LUE ROM Measurements and Cmts: WFL MANUAL MUSCLE TEST RIGHT UPPER EXTREMITY: Yes Right Upper Extremity Measurements and Cmts: 4-/5 LEFT UPPER EXTREMITY: Yes Left Upper Extremity Measurements and Cmt: 4-/5 Fine Motor Coordination: Normal Gross Motor Coordination: Normal Right Hand Sand Digger Strength: Good Left Hand Sand Digger Strength: Good FUNCTIONAL MOBILITY FUNCTIONAL MOBILITY Items determined to be outside Functional Limits are as follows: Bed Mobility: Moderate Assistance Scooting in Bed, Up: Moderate Assistance Scooting in Bed, Down: Minimal Assistance Scooting to edge of bed, Right: Minimal Assistance Supine to Sit: Moderate Assistance Sit to Supine: Moderate Assistance Sit to Stand: Minimal Assistance Functional Activity Tolerance Sitting Unsupported: 10-20 minutes Sitting Supported: Greater than 30 minutes Standing Unsupported: 0-10 minutes Standing Supported: 0-10 minutes Comments: PATIENT STOOD FROM EOB WITH MIN A WITH RW AND TOOK 2-3 LATERAL STEPS WITH RW TO HEAD OF BED. TRANSFERS BALANCE Static Sitting: Good Dynamic Sitting: Fair Static Standing: Fair Dynamic Standing: Fair ACTIVITIES OF DAILY LIVING Activity: How much help from another person does the patient currently need: Putting on and taking off regular lower body clothing? 1 Bathing including washing, rinsing, drying? 1 Toileting which includes using toilet, bedpan, or urinal? 1 Putting on and taking off regular upper body clothing? 2 Taking care of personal grooming, such as brushing teeth? 4 Eating meals? 4 [facility] Activity Score: 13 ACTIVITIES OF DAILY LIVING Items determined to be outside Functional Limits are as follows: Upper Body Dressing: Minimal Assistance Lower Body Dressing: Dependent Hygiene/Grooming: Supervision or Set-up Feeding: Modified [place] Toileting: Dependent Comments: PURWICK IN PLACE, POSTERIOR HIP PRECAUTIONS, INTRODUCED USE OF DIRECTOR OF SALES MARKETING, SOCK AIDE, LONG HANDLE BATH SPONGE AND DRESSING STICK COGNITION COGNITION Items determined to be outside Functional Limits are as follows: Orientation: OX4 - P/PL/T/Situation Follows Commands: 3 Steps Motivation: Good History Past medical history: Reports: Hypertension, Thyroid disorder. Denies: Alcoholism/subst abuse, Anemia , Arthritis, Asthma, Atrial fibrillation, Cancer, Congestive heart failure, COPD , Coronary artery disease, Dementia, Depression/mood disorder, Diabetes mellitus , GERD/gastritis, Kidney disease/stones, Seizure disorder, Transient ischemic attack, , Abdominal aortic aneurysm, ADD/ADHD, AIDS, Angina pectoris, Anticoagulant therapy, Atrial flutter, Bleeding disorder, BPH, C diff colitis, Cardiac dysrhythmias, Chronic pain, Cirrhosis, Congenital anomalies, Dyslipidemia, Gallbladder dis/stones, GI bleed, Glaucoma, Headache disorder, Hepatitis, HIV, Intracranial hemorrhage, Ischemic stroke, Motor dysfunction, Pancreatitis, Peptic ulcer disease, Periph arterial disease, Pressure ulcer, Prior AR, Schizophrenia, Sickle cell disease, Steroid use, Transfusion history, Tuberculosis, Urinary tract infection, Venous thromboembolism. Additional medical history: Matheus breast cancer. Past surgical history: Reports: Breast biopsy/procedure. Denies: Abdominal surgery, Appendectomy, Bariatric procedure, CABG, Carotid endarterectomy, Cholecystectomy, , Dialysis shunt/AV fistula, Heart valve procedure, Hernia repair, Hysterectomy, Pacemaker, Spine surgery, Splenectomy, Tonsillectomy, Transplant recipient, Vascular procedure, , Amputation, Anesthesia complications, Bilateral tubal ligation, Bladder surgery, Carpal tunnel release, Cranial procedure, D C, Eye surgery, Feeding tube, Hip procedure, ICD, Indwelling IV catheter, Knee procedure, Lithotripsy, Lung surgery, Nephrectomy, PCI, Prostate surgery, Thyroidectomy, Tracheotomy, CITIZENSHIP INSTRUCTOR shunt. Additional surgical history: Bilateral Breast lumpectomy for bilateral breast can cer Family history: Denies: Abdominal aortic aneurysm, Anemia, Asthma, CAD < 40 yrs old, Cancer, Coagulopathy, Dementia/Alzheimer's dis, Depression/mood disorder, Diabetes, Heart disease, Hypertension, Kidney disease/stones, Seizure disorder, Stroke/TIA , Subarachnoid hemorrhage, Sudden cardiac , Thyroid disorder, , Connective tissue dis, Gallbladder disease, Hyperlipidemia, Neurofibromatosis, Sickle cell disease. Alcohol use: Denies EtOH use Drug use: Denies recreational drugs Smoking status for patients 13 years old or older: Never Smoker Other social history: Primary family support, , retired, lives alone and daughter lives 1/2 hr away and involved in her care Medications: Home Medications: Medication Dose/Rte/Freq Days Qty Entered Last Max Daily Dose Reviewed ALBUTEROL (Unknown Dose) 12/14/23 12/14/23 (ALBUTEROL HFA 90 0355 0356 MCG/ACT) Strength: (Unknown Strength) INHALER LETROZOLE (FEMARA) 2.5 MG PO DAILY 30 12/23/23 Strength: 2.5 MG TAB 1555 ENOXAPARIN (LOVENOX) 30 MG SUBQ Q12H 42 12/23/23 Strength: 30 MG/0.3 ML 1558 DISP.SYRIN LOSARTAN (COZAAR) 50 MG PO BID PC 60 12/23/23 Strength: 50 MG TAB 1559 amLODIPine (NORVASC) 10 MG PO BEDTIME 30 12/23/23 Strength: 10 MG TAB 1559 carvediloL 6.25 MG PO BID 60 12/23/23 Strength: 3.125 MG TAB 1559 HYDROCHLOROTHIAZIDE 12.5 MG PO DAILY 30 30 12/23/23 (HCTZ) 1601 Strength: 12.5 MG CAP dexAMETHasone 6 MG PO TID 14 42 12/23/23 Strength: 6 MG TAB 1601 ACETAMINOPHEN (TYLENOL) 650 MG PO 30 12/16/23 Strength: 325 MG TAB Q4H PRN PRN PAIN 1129 SCALE 1-3/TEMP ABOVE 100F DOCUSATE SODIUM 100 MG PO 30 12/16/23 (COLACE) BID PRN PRN 1130 Strength: 100 MG CAP CONSTIPATION Allergies: Coded Allergies: aspirin (NAUSEA 12/14/23) cefdinir (NAUSEA 12/14/23) codeine (NAUSEA 12/14/23) morphine (NAUSEA 12/14/23) Objective Physical Exam VS: Last Documented: Result Date Time Pulse Ox 95 12/15 0734 B/P 127/63 12/15 0734 B/P Mean 84.1 12/15 0734 Temp 97.9 12/15 0734 Pulse 68 12/15 0734 Resp 16 12/15 0734 O2 Delivery Room air 12/15 0432 O2 Flow Rate 2 12/14 1604 PATIENT WEIGHT: Weight (lb): Weight (oz): Weight (kg): 85.000 General appearance: alert, awake HEENT: anicteric, mucosal membranes moist, sclera clear Neck: supple Cardiovascular: regular rate rhythm, S1/S2, no murmur Respiratory: aerating well, clear bilaterally Abdomen: bowel sounds present, non-distended, soft, non-tender, no mass palpable Skin: dry, intact, no rash Musculoskeletal - general: Musculoskeletal - general: joints normal, range of motion normal, no atrophy Neuro/SINKER PULLER: alert, oriented X 3, normal speech, no sensory deficits Results Findings/Data: Laboratory Tests: 12/15 0439 Chemistry Sodium (134 - 147 mEq/L) 137 [...] (Auto) (14.0 - 32.0 %) 5.[address] [place] % (Auto) (4.8 - 9.0 %) 7.0 Eos % (Auto) (0.3 - 3.7 %) 0.0 L Baso % (Auto) (0.0 - 2.0 %) 0.1 Neut # (Auto) (2.0 - 7.6 x10 3/uL) 9.46 H Lymph # (Auto) (1.0 - 3.8 x10 3/uL) 0.[address] [place] # (Auto) (0.1 - 0.8 x10 3/uL) [...] (0.0 - 0.1 x10 3/uL) 0.00 Radiology data: Recent Impressions: RADIOLOGY - XR HIP W/PEL UNI 2+V RT 12/14 1104 Report Impression - Status: SIGNED Entered: 12/15/2023 1300 IMPRESSION: A hip prosthesis is identified. No new fracture is identified. There is air in the soft tissues, consistent with recent surgery. Metastatic disease to the bones is again demonstrated. Impression By: Lindsey Grissom M.D. Diagnosis, Assessment Plan Problem List/A P: 1. Right femoral fracture 2. HTN (hypertension) 3. Cancer of left breast, stage 4 4. Pathologic fracture of neck of right femur Free Text A P: Plan: PT/OT consulted. She is s/p right hip hemiarthroplasty. She is DIONISIO to the right hip. She will benefit from IRF once medically cleared for IRF. Will submit referral. Oncology following. She will ultimetaly need work up as an outpt. Will follow and make recommendations based on medical and rehab progress. Advanced Care Plan for patients age > 65 *Advanced Care Plan Discussed: [X ]Yes who, living will, POA, and code status , Full Code. [ ] No explain why] *Surrogate Decision Maker: [ ]Yes who [ ] No explain why at 2241 RPT #:[id number] END OF REPORT [facility] 2023-12-16 10:11:00 [facility] ([facility]) Hospitalist Progress Note REPORT#:[id number] REPORT STATUS: Signed REPORT INITIALIZATION DATE:12/16/23 TIME: 101 PATIENT: JUSTYNA GAMING UNIT #: [id number] ROOM/BED: [place] [address] : 49 AGE: 73 SEX: F ATTEND: Rah Guzman MD ADM AUTHOR: Rah Guzman MD REPT SERVICE DT/TIME: 12/16/23 1011 * ALL edits or amendments must be made on the electronic/computer document * Subjective Chief complaint: NO COMPLAINTS, SITTING IN CHAIR, LIVES ALONE, AND HAS SOME STRENGTH IN LEGS, INFORMED OF IRF EVAL, AND XRT BEFORE D/C WHILE IN REHAB. HPI: Patient is a 73 years old lady with past medical history of hypertension, hypothyroidism, asthma, spinal stenosis and breast cancer. She presented to the emergency room on account of inability to walk of about 90 days duration. She also noted sudden episode of right hip pain. This pain is worse with walking. Pain became unbearable and it was difficult for patient to ambulate. She denies any history of fall. Imaging demonstrated right hip fracture and also right femoral fracture. Orthopedic unit has been consulted. Patient is being admitted for further evaluation of suspected pathological fracture. She has a history of breast cancer. Her last visit to her doctor was in April 2023. Objective General Medications: Active Meds + DC'd Last 24 Hrs Enoxaparin Sodium (lovENOX) 30 MG Q12HR SUBQ Cefazolin Sodium (KEFZOL OR ANCEF) 1 GM Q8H IV (DC) Sodium Chloride (SODIUM CHLORIDE) 10 ML Miscellaneous Information (LOVENOX PHARMACY TO DOSE) 1 EACH ASDIR SUBQ ( CKD) Sodium Chloride (SODIUM CHLORIDE 0.9%) 1,000 ML .[id number] IV (DC) Diphenhydramine HCl (BENADRYL) 12.5 MG [...] Sodium Chloride (SODIUM CHLORIDE 0.9%) 250 ML Mupirocin (BACTROBAN 2% 22 GM OINTMENT) 1 [...] IV Sodium Chloride (SODIUM CHLORIDE 0.9%) 250 ML Hydralazine HCl (APRESOLINE) 10 MG Q6H PRN PRN IV Acetaminophen (TYLENOL) 650 MG Q4H PRN PRN PO Al Hydrox/Mg Hydrox/Simethicone (MYLANTA) 30 ML Q4H PRN PRN PO Docusate Sodium (COLACE) 100 MG BID PRN PRN PO Sodium Chloride (SODIUM CHLORIDE 0.9%) 1,000 ML .[id number] IV Physical Exam General appearance: chronically ill appearing, obese, alert, awake Head/Eyes: WEARING EYEGLASSES Neck: no JVD Cardiovascular: regular rate rhythm Respiratory: aerating well, clear to auscultation, symmetric expansion Abdomen: obese, non-tender, normal bowel sounds, soft Extremities: TRACE PRETIBIAL EDEMA Musculoskeletal: decreased ROM Neuro/SINKER PULLER: alert, oriented X 3 Skin: normal color Psychiatry: normal affect Results Findings/Data: Laboratory Tests 12/15 0539 Chemistry Sodium (134 - [...] (Auto) (14.0 - 32.0 %) 5.[address] [place] % (Auto) (4.8 - 9.0 %) 7.0 Eos % (Auto) (0.3 - 3.7 %) 0.0 L Baso % (Auto) (0.0 - 2.0 %) 0.1 Neut # (Auto) (2.0 - 7.6 x10 3/uL) 9.46 H Lymph # (Auto) (1.0 - 3.8 x10 3/uL) 0.[address] [place] # (Auto) (0.1 - 0.8 x10 3/uL) [...] (0.0 - 0.1 x10 3/uL) 0.00 Radiology data: Recent Impressions: RADIOLOGY - XR HIP W/PEL UNI 2+V RT 12/14 1104 Report Impression - Status: SIGNED Entered: 12/15/2023 1300 IMPRESSION: A hip prosthesis is identified. No new fracture is identified. There is air in the soft tissues, consistent with recent surgery. Metastatic disease to the bones is again demonstrated. Impression By: Lindsey - Timothy Grissom M.D. Free Text Obj Notes Free Text Obj Notes: General/Const Awake, Alert, oriented HENT Head atraumatic, normocephalic, ears/nose/throat airway patent, TMs clear bilaterally MS Neck Neck Supple, no swelling, no tenderness to palpation Resp/Chest CTAB, No respiratory distress, no rales, no rhonchi, no wheezing Cardiovascular Normal rate, regular rhythm, heart sounds. No rubs murmurs gallops Abdomen/GI Normal bowel sounds, soft, nontender, nondistended. No rebound or guarding MS No bony deformity, 2+ DP pulses bilaterally. Some mild swelling to the right lower extremity Skin Skin Warm, Dry, no abrasions, rashes, lacerations Neurologic Neurologic Oriented X3, Speech NL, no focal neuro deficits, CN 2-12 intact, 5 /5 strength, sensation intact Diagnosis, Assessment Plan Free Text DxA P Notes Free text DxA P notes: Right femoral PATHOLOGIC Fracture/Right hip fracture, S/P HEMIARTHROPLASTY [...] PENDING DVT PX - LOVENOX 30 BID Plans Reviewed imaging reports, concerning for metastatic process Orthopedic consulted in the ER Consider oncology consult in the morning Analgesia as tolerated Iv zithromax Duoneb breathing treatment q4h prn Supp O2 as needed IV fluid, monitor serum calcium. PTH ordered IV prn hydralazine for elevated blood pressure, resume home medications when updated Further care per clinical course CODE STATUS: full code. 12/14- s/p right hip arthroplasty for pathologic hip fracture. Multiple mets of the spine. XRT plans on going emergency radiation treatment ROSA while in the hospital for 5 treatments. at [address] [place] [address] #:[id number] END OF REPORT [facility] 2023-12-15 22:49:00 [facility] ([facility] Tevin/Oncology Progress Note REPORT#:[id number] REPORT STATUS: Signed REPORT INITIALIZATION DATE:12/15/23 TIME: 2248 PATIENT: JUSTYNA GAMING UNIT #: [id number] ROOM/BED: [place] [address] : 49 AGE: 73 SEX: F ATTEND: Mirna Delcid DO ADM AUTHOR: Leanna Mosher MD REPT SERVICE DT/TIME: 12/15/232248 * ALL edits or amendments must be made on the electronic/computer document * See Addendum Subjective Chief Complaint: metastatic malignancy pathological hip fracture spinal cord compression from epidural mass Objective Physical Exam VS: Vital Signs Date Temp Pulse Resp B/P B/P [...] 2 12/14 1604 General appearance: alert, awake, oriented HEENT: pupils reactive to light Cardiovascular: regular rate and rhythm, normal heart sounds, normal S1/S2 Respiratory: aerating well, symmetric expansion, no distress Abdomen: non-tender, soft Extremities: post right hip surgery Neuro/SINKER PULLER: alert, normal speech, no motor deficits Current Medications Medications: Active Meds + DC'd Last 24 Hrs Enoxaparin Sodium (lovENOX) 30 MG Q12HR SUBQ Cefazolin Sodium (KEFZOL OR ANCEF) 1 GM Q8H IV Sodium Chloride (SODIUM CHLORIDE) 10 ML Miscellaneous Information (LOVENOX PHARMACY TO DOSE) 1 EACH ASDIR SUBQ ( CKD) Sodium Chloride (SODIUM CHLORIDE 0.9%) 1,000 ML .[id number] IV (DC) Phenylephrine HCl (Phenylephrine PF 500 [...] 20 ML .STK-MED ONE IV (DC) Rocuronium Kemp (ZEMURON) 0 .STK-MED ONE IV (DC) Propofol [...] (CKD) Sodium Chloride (SODIUM CHLORIDE 0.9%) 250 ML Acetaminophen (TYLENOL EXTRA STRENGTH) 0 .STK-MED ONE PO [...] IV Sodium Chloride (SODIUM CHLORIDE 0.9%) 250 ML Hydralazine HCl (APRESOLINE) 10 MG Q6H PRN PRN IV Acetaminophen (TYLENOL) 650 MG Q4H PRN PRN PO Al Hydrox/Mg Hydrox/Simethicone (MYLANTA) 30 ML Q4H PRN PRN PO Docusate Sodium (COLACE) 100 MG BID PRN PRN PO Sodium Chloride (SODIUM CHLORIDE 0.9%) 1,000 ML .[id number] IV Results Findings/Data: Laboratory Tests 12/15/23 0500: [Embedded Image Not Available] 12/15/23 0017: [Embedded Image Not Available] Laboratory Tests 12/14 0500 Chemistry Sodium (134 - [...] (Auto) (14.0 - 32.0 %) 9.[address] [place] % (Auto) (4.8 - 9.0 %) 1.8 L Eos % (Auto) (0.3 - 3.7 %) 0.0 L Baso % (Auto) (0.0 - 2.0 %) 0.3 Neut # (Auto) (2.0 - 7.6 x10 3/uL) 6.64 Lymph # (Auto) (1.0 - 3.8 x10 3/uL) 0.[address] [place] # (Auto) (0.1 - 0.8 x10 3/uL) [...] Date/Time Procedure - Status Source Growth 12/14 0529 [facility] Surveillance Screen - COMP NASAL Radiology data: Recent Impressions: RADIOLOGY - XR PELVIS 1/2 VIEWS 12/14 0833 Report Impression - Status: SIGNED Entered: 12/15/2023 1153 IMPRESSION: Femoral component right hip replacement appears satisfactory. Impression By: Haylee Soto M.D. RADIOLOGY - XR HIP W/PEL UNI 2+V RT 12/14 1104 Report Impression - Status: SIGNED Entered: 12/15/2023 1300 IMPRESSION: A hip prosthesis is identified. No new fracture is identified. There is air in the soft tissues, consistent with recent surgery. Metastatic disease to the bones is again demonstrated. Impression By: Lindsey Grissom M.D. Diagnosis, Assessment Plan Free Text DxA P Notes Free Text DxA P Notes: 1. Breast cancer 2. Metastatic malignancy likely recurrent breast 3. Spinal stenosis due to metastaic disease 4. pathological hip fracture I d/w patient, daughter and son at bedside. she has extensive disease I agree with initial management of her hip to help with her fracture. request tissue for path confirmationa nd molecular tumor profiling. I will obtain and review her [facility] records for initial cancer history. start dex 4mg TID IV spoke to neurosurgery DR Worrell. she has rather extensive area which will require a long surgery and recovery and post op management will be challenging. requested MRI spine I will also d/w XRT oncology once MRI [...] already doen due to extensive metastatic disease. 12/14 s/p right hip surgery tissue sent for path results pending for confirmation and molecular tumor profiling spoke with XRT oncology and plan is to initiate inpatient XRT for spinal cord compression x [address] Gardner and Dr Worrell and DR Payne to coordinate care. continue dex 4mg q 8 and will slowly taper after competion of xrt. all questions answered. at 2254 Addendum 1: 12/15/232254 by Leanna Mosher MD hypercalcemi s/p zometa x 1 on 12/13 calcium normal aggresive DVT prophylaxis starte don lovenox 30mg q 12. at 2256 RPT #:[id number] END OF REPORT [facility] 2023-12-15 14:21:00 [facility] Hospitalist Progress Note REPORT#:[id number] REPORT STATUS: Signed REPORT INITIALIZATION DATE:12/15/23 TIME: 1420 PATIENT: JUSTYNA GAMING UNIT #: [id number] ROOM/BED: [place] [address] : 49 AGE: 73 SEX: F ATTEND: Mirna Delcid DO ADM AUTHOR: Yoseph Floyd MD REPT SERVICE DT/TIME: 12/15/23 142 * ALL edits or amendments must be made on the electronic/computer document * Subjective Chief complaint: Right hip pain HPI: Patient is a 73 years old lady with past medical history of hypertension, hypothyroidism, asthma, spinal stenosis and breast cancer. She presented to the emergency room on account of inability to walk of about 90 days duration. She also noted sudden episode of right hip pain. This pain is worse with walking. Pain became unbearable and it was difficult for patient to ambulate. She denies any history of fall. Imaging demonstrated right hip fracture and also right femoral fracture. Orthopedic unit has been consulted. Patient is being admitted for further evaluation of suspected pathological fracture. She has a history of breast cancer. Her last visit to her doctor was in April 2023. Objective General VS/I O: Vital Signs: Date Time Temp Pulse Resp B/P [...] (lb): Weight (oz): Weight (kg): 85.000 Physical Exam General appearance: alert, awake Head/Eyes: atraumatic, normocephalic ENT: normal ear left, normal ear right, normal nose Neck: full range of motion, no JVD Cardiovascular: regular rate rhythm Respiratory: aerating well, clear to auscultation, symmetric expansion Abdomen: non-tender, normal bowel sounds, soft Extremities: no clubbing, no cyanosis, no edema Neuro/SINKER PULLER: alert, oriented X 3 Results Radiology data: Laboratory Tests 12/15/23 0500: [Embedded Image Not Available] 12/15/23 0017: [Embedded Image Not Available] 12/14/23 1313: [Embedded Image Not Available] 12/13/23 2254: [Embedded Image Not Available] Current Medications Sig/Fozia Start time Last Medication Dose Route Stop Time Status Admin Enoxaparin Sodium 30 MG Q12HR 12/14 2100 AC SUBQ 03/14 205 Cefazolin Sodium 1 GM Q8H 12/14 1600 AC Sodium Chloride 10 ML IV 12/15 0002 Miscellaneous 1 EACH ASDIR 12/14 1015 CKD Information SUBQ 12/21 1014 Sodium Chloride 1,000 ML .[id number] 12/14 1015 DC IV 03/14 1014 Phenylephrine HCl 0 .STK-MED ONE 12/14 0840 DC .ROUTE Glycopyrrolate 0 .STK-MED ONE 12/14 0820 DC .ROUTE Diphenhydramine HCl 12.5 MG PACU ONCE PRN 12/14 0815 AC IV 12/14 1803 Fentanyl Citrate 100 MCG PACU Q10MIN PRN PRN 12/14 0815 AC IV 12/14 1803 Fentanyl Citrate 50 MCG PACU Q10MIN PRN PRN 12/14 0815 AC IV 12/14 1803 Hydralazine HCl 5 MG PACU Q10MIN PRN PRN 12/14 0815 AC 12/14 IV 12/14 1803 1039 Hydromorphone HCl 1 MG PACU Q10MIN PRN PRN 12/14 0815 AC IV 12/14 1803 Hydromorphone HCl 0.5 MG PACU Q5MIN PRN PRN 12/14 0815 AC IV 12/14 1803 Labetalol HCl 5 MG PACU Q10MIN PRN PRN 12/14 0815 AC 12/14 IV 12/14 1803 1027 Lactated Ringer's 1,000 ML .Q24H 12/14 0815 AC IV 12/14 1803 Meperidine HCl 12.5 MG PACU ONCE PRN 12/14 0815 AC IV 12/14 1804 Ondansetron HCl 4 MG PACU ONCE PRN 12/14 0815 AC 12/14 IV 12/14 1803 1352 Promethazine HCl 25 MG PACU ONCE PRN 12/14 0815 AC PO 12/14 1803 Ropivacaine 150 MG ASDIR PRN 12/14 0815 AC LOCAL 12/14 1804 Tramadol HCl 50 MG PACU ONCE 12/14 0815 CKD PO 12/14 1804 Hydromorphone HCl 0 .STK-MED ONE 12/14 08 DC .ROUTE Fentanyl Citrate 0 .STK-MED ONE 12/14 0703 DC .ROUTE Lidocaine HCl 0 .STK-MED ONE 12/14 07 DC .ROUTE Propofol 20 ML .STK-MED ONE 12/14 07 DC IV Rocuronium Kemp 0 .STK-MED ONE 12/14 0702 DC IV Propofol 100 ML .STK-MED ONE 12/14 0656 DC IV Clonidine HCl 0 .STK-MED ONE 12/14 06 DC .ROUTE Epinephrine 0 .STK-MED ONE 12/14 06 DC .ROUTE Ropivacaine 0 .STK-MED ONE 12/14 06 DC .ROUTE Tobramycin Sulfate 0 .STK-MED ONE 12/14 0631 DC .ROUTE Tranexamic Acid 0 .STK-MED ONE 12/14 06 DC .ROUTE Vancomycin HCl 0 .STK-MED ONE 12/14 0631 DC .ROUTE Ketorolac 0 .STK-MED ONE 12/14 0630 DC Tromethamine .ROUTE Vancomycin HCl 1,000 MG PREOP ONCALL 12/14 0630 CKD 12/14 Sodium Chloride 250 ML IV 12/14 2359 0626 Acetaminophen 0 .STK-MED ONE 12/14 0532 DC PO Cefazolin Sodium 0 .STK-MED ONE 12/14 0532 DC IV Celecoxib 0 .STK-MED ONE 12/14 0532 DC PO Gabapentin 0 .STK-MED ONE 12/14 0532 DC PO Sodium Chloride 250 ML .STK-MED ONE 12/14 0532 DC IV Vancomycin HCl 0 .STK-MED ONE 12/14 0532 DC IV Mupirocin 0 .STK-MED ONE 12/14 0531 DC NASAL Mupirocin 1 APPLIC BID 12/14 0530 AC 12/14 NASAL 12/18 0901 0603 Cefazolin Sodium 2 GM PREOP ONCALL 12/14 0500 DC IV 12/14 2359 Gadoterate Meglumine 17 ML ONCE PRN 12/13 1830 DC 12/13 IV 1938 Zoledronic Acid 4 MG ONCE ONE 12/13 1639 DC 12/13 Sodium Chloride 100 ML IV 12/13 1708 2208 Hydrochlorothiazide 12.5 MG DAILY 12/13 1615 AC 12/13 PO 03/13 1614 1659 Losartan Potassium 25 MG DAILY 12/13 1603 AC 12/13 PO 03/14 0859 1700 Dexamethasone Sodium 4 MG Q6H 12/13 1600 AC 12/14 Phosphate IV 03/13 1559 0328 Hydromorphone HCl 0.5 MG Q3H PRN PRN 12/13 1315 AC IV 12/18 1314 Acetaminophen 1,000 MG PREOP ONCALL 12/13 1245 CKD 12/14 PO 03/13 1244 0602 Celecoxib 200 MG PREOP ONCALL 12/13 1245 CKD PO 01/12 2359 Gabapentin 200 MG PREOP ONCALL 12/13 1245 CKD 12/14 PO 01/12 235 0602 Lactated Ringer's 1,000 ML PREOP ONCALL 12/13 1245 AC IV 03/13 1244 Sodium Chloride 20 ML ASDIR 12/13 1245 AC IV 12/14 235 Albuterol/Ipratropium 3 ML RTQ4H PRN PRN 12/13 0300 AC NEB 03/13 0259 Azithromycin 500 MG Q24H 12/13 0300 AC 12/14 Sodium Chloride 250 ML IV 12/16 025 0328 Hydralazine HCl 10 MG Q6H PRN PRN 12/13 0300 AC IV 03/13 0259 Acetaminophen 650 MG Q4H PRN PRN 12/13 0230 AC 12/13 PO 03/13 022 1217 Al Hydrox/Mg Hydrox/ 30 ML Q4H PRN PRN 12/13 023 AC Simethicone PO 03/13 0229 Docusate Sodium 100 MG BID PRN PRN 12/13 0230 AC PO 03/13 0229 Sodium Chloride 1,000 ML .[id number] 12/13 023 AC 12/13 IV 03/13 0229 1659 Laboratory [...] (Auto) (14.0 - 32.0 %) 9.[address] [place] % (Auto) (4.8 - 9.0 %) 1.8 L Eos % (Auto) (0.3 - 3.7 %) 0.0 L Baso % (Auto) (0.0 - 2.0 %) 0.3 Neut # (Auto) (2.0 - 7.6 x10 3/uL) 6.64 Lymph # (Auto) (1.0 - 3.8 x10 3/uL) 0.[address] [place] # (Auto) (0.1 - 0.8 x10 3/uL) 0.14 Eos # (Auto) (0.0 - 0.2 x10 3/uL) 0.00 Baso # (Auto) (0.0 - 0.2 x10 3/uL) 0.02 Abs Immat Gran (auto) (0.00 - 0.03 x10 3/uL) 0.09 H Immature Gran % (0.0 - 2.0 %) 1.2 Nucleated RBC % (0 - 0 %) 0.0 Nucleated RBCs # (Man) (0.0 - 0.1 x10 3/uL) 0.00 Microbiology: 12/14 0529 NASAL: MSSA Surveillance Screen - RECD 12/13 1608 NASAL: MRSA DNA Surveillance Screen - COMP Recent Impressions: MAGNETIC RESONANCE IMAGING - MRI THORACIC SPINE WO/W CON 12/13 1938 Report Impression - Status: SIGNED Entered: 12/14/20232021 IMPRESSION: Findings consistent with extensive metastatic involvement seen throughout the thoracic spine. There is significant epidural component at T8 seen left ventral to the thecal sac and left laterally with perhaps minimal cord compression and there is a left paracentral ventral epidural component identified at T7 without definite cord compression. Multilevel spondylosis is also seen resulting compromise of the canal at T9-T10 and at T10-T11 Impression By: StephanieDASEduardo - Ann Oneill M.D. RADIOLOGY - XR PELVIS 1/2 VIEWS 12/14 0833 Report Impression - Status: SIGNED Entered: 12/15/2023 1153 IMPRESSION: Femoral component right hip replacement appears satisfactory. Impression By: Haylee Soto M.D. RADIOLOGY - XR HIP W/PEL UNI 2+V RT 12/14 1104 Report Impression - Status: SIGNED Entered: 12/15/2023 1300 IMPRESSION: A hip prosthesis is identified. No new fracture is identified. There is air in the soft tissues, consistent with recent surgery. Metastatic disease to the bones is again demonstrated. Impression By: Lindsey - Timothy Grissom M.D. Free Text Obj Notes Free Text Obj Notes: General/Const Awake, Alert, oriented HENT Head atraumatic, normocephalic, ears/nose/throat airway patent, TMs clear bilaterally MS Neck Neck Supple, no swelling, no tenderness to palpation Resp/Chest CTAB, No respiratory distress, no rales, no rhonchi, no wheezing Cardiovascular Normal rate, regular rhythm, heart sounds. No rubs murmurs gallops Abdomen/GI Normal bowel sounds, soft, nontender, nondistended. No rebound or guarding MS No bony deformity, 2+ DP pulses bilaterally. Some mild swelling to the right lower extremity Skin Skin Warm, Dry, no abrasions, rashes, lacerations Neurologic Neurologic Oriented X3, Speech NL, no focal neuro deficits, CN 2-12 intact, 5 /5 strength, sensation intact Diagnosis, Assessment Plan Free Text DxA P Notes Free text DxA P notes: Assessment Right femoral fracture Right hip fracture Multiple lytic bone lesions Hypercalcemia Hypertension Asthma pneumonia History of breast cancer Plans Reviewed imaging reports, concerning for metastatic process Orthopedic consulted in the ER Consider oncology consult in the morning Analgesia as tolerated Iv zithromax Duoneb breathing treatment q4h prn Supp O2 as needed IV fluid, monitor serum calcium. PTH ordered IV prn hydralazine for elevated blood pressure, resume home medications when updated Further care per clinical course CODE STATUS: full code. 12/14- s/p right hip arthroplasty for pathologic hip fracture. Multiple mets of the spine. XRT plans on going emergency radiation treatment ROSA while in the hospital for 5 treatments. at 1423 RPT #:[id number] END OF REPORT [facility] 2023-12-15 11:25:00 [facility] ([facility]) Operative Note - Full REPORT#:[id number] REPORT STATUS: Signed REPORT INITIALIZATION DATE:12/15/23 TIME: 1124 PATIENT: JUSTYNA GAMING UNIT #: [id number] ROOM/BED: [place] [address] : 49 AGE: 73 SEX: F ATTEND: Mirna Delcid DO ADM AUTHOR: Alirio Hurtado MD REPT SERVICE DT/TIME: 12/15/23 1125 * ALL edits or amendments must be made on the electronic/computer document * Operative Report ORM Surgeries: Surgery Date and Time: 12/15/2023 0700 Proposed Primary Procedure: RIGHT HEMIARTHROPLASTY HIP Start date: 12/15/23 Start time: 744 Pre-procedure diagnosis: right pathologic femoral neck fracture S72.031A M84.451 Post-procedure diagnosis: right pathologic femoral neck fracture S72.031A M84.451 Procedures performed: Right hip hemiarthroplasty 24339 Technique/Procedure: See free text Primary Surgeon: Alirio Hurtado Director Biologics(s): Raghavendra Jiang Anesthesia: general anesthesia Indications: see free text Operative findings: Pathologic right femoral neck fracture Complications: none Estimated blood loss in ml's: 300ccs Specimens removed/altered: femoral head and neck sent to pathology Implant(s): [place] Accolade C Size 3 stem, bipolar 47mm OD head Fluids: See anesthesia records Disposition: MEDSURG Counts: Sponge count: correct Instrument count: correct Needle count: correct Wound class: clean-contaminated Free Text Op Notes Free Text Op Notes: INDICATIONS: The patient is a 73-year-old female with past medical history of breast cancer who sustained a pathologic fracture of the right hip resulting in a femoral neck fracture. The patient was made aware of the risks, benefits and alternatives to the procedure. All of the patient's questions were answered to their satisfaction and informed consent was obtained. PROCEDURE IN DETAIL: The patient was met in the preoperative holding area where the informed consent was reviewed and the operative site marked. The patient was then taken back to the operating room. After induction of anesthesia, the patient was carefully placed in the lateral decubitus position with the operative extremity facing up. A bledsoe bag was used to support the [...] the level of fascia. Ledesma elevator was used to better visualize the fascial layer directly over the greater trochanter. Electrocautery was used to incise the fascia in line with the overlying incision. Ledesma elevator was then placed under the gluteus aram, and electrocautery was used to dissect through this tissue. The Charnley retractor was then put into place. The extremity was placed in internally rotated position to better facilitate access to the posterior aspect of the hip. Bursa was dissected off the posterior portion of the greater trochanter using electrocautery. The external rotators and posterior capsular structures were dissected off of the base of the femoral neck. The capsular tissue was tagged with two #5 FiberWires. The hip was gently placed into a dislocated position and the planned femoral cut was marked on the posterior aspect of the femoral neck. The femoral neck was then cut with a reciprocating saw, and the femoral head and fractured neck were extracted. The specimen was sent [...] neck. Box osteotome was then used to create a bony canal at the lateral aspect of the base of the femoral neck. A canal finder was then placed down the femoral canal. A lateralizing broach was used to ream the proximal femur. The femoral canal was then prepared with a series of sequential broaches. A size 3 broach appeared to have good fit. A trial neck and head were placed atop the broach, and the hip was reduced. Leg lengths were checked and range of motion and stability tested. With the hip in full extension , there was no anterior dislocation with 45 degrees of external rotation. With the hip extended and knee flexed, the hip could be easily rotated internally to 70 degrees. With the hip flexed to 90 degrees, the hip could be internally rotated approximately 70 degrees before impingement. It was stable in this position as well as the position of sleep. Intraoperative x-rays were then taken verifying component positioning and sizing as well as leg lengths. The hip was then dislocated and the trials were removed. The wound was copiously irrigated. We then dried the canal and applied a cement plug. We then pressurized cement into the canal. A size 3 femoral stem implant was then placed onto the prepared canal and gently impacted in until fully seated. The cement was [...] drapes were taken down. The patient tolerated the procedure well and was transferred to the hospital bed. Patient was transported to recovery room in comfortable and stable condition. All counts were correct at the completion of the case. ATTESTATION: I was present for the entirety of the procedure. Post op course: -WBAT operative right lower extremity with posterior hip precautions -DVT ppx - per primary, recommend Lovenox or ASA 325mg BID -Antibiotics - SCIP -OK to d/c when cleared from PT Alirio Hurtado MD at 1131 RPT #:[id number] END OF REPORT [facility] 2023-12-15 11:08:00 [facility] ([facility]) Clinical Note REPORT#:[id number] REPORT STATUS: Signed REPORT INITIALIZATION DATE:12/15/23 TIME: 1107 PATIENT: JUSTYNA GAMING UNIT #: [id number] ROOM/BED: [place] [address] : 49 AGE: 73 SEX: F ATTEND: Mirna Delcid DO ADM AUTHOR: Blanco Worrell MD REPT SERVICE DT/TIME: 12/15/23 1108 * ALL edits or amendments must be made on the electronic/computer document * Clinical Note Note: Patient is in OR for hip procedure during my visit, plan discussed with the daughter in the room and with RN and Dr. Mosher. MRI reveals extensive bony and some epidural component of the tumor from T5 to T9 levels, but there is minimal spinal cord compression. No immediate neurosurgical intervention would be necessary at this time. Recommend to start XRT rosa and any other adjuvant treatment as per Dr. Mosher. Patient should follow up with me in office in 6 weeks with plain thoracic spine X-rays to ensure no further collapse of T7/9 vertebral bodies. I have given my office info to the daughter. Will standby for now, please call prn. at 1111 RPT #:[id number] END OF REPORT [facility] 2023-12-15 10:15:00 [facility] ([facility]) Orthopaedic Consult Note REPORT#:[id number] REPORT STATUS: Signed REPORT INITIALIZATION DATE:12/15/23 TIME: 1014 PATIENT: JUSTYNA GAMING UNIT #: [id number] ROOM/BED: [place] [address] : 49 AGE: 73 SEX: F ATTEND: Mirna Delcid DO ADM AUTHOR: Alirio Hurtado MD REPT SERVICE DT/TIME: 12/15/23 1015 * ALL edits or amendments must be made on the electronic/computer document * History of Present Illness Requesting clinician: Heath Reason for consult: fracture closed, pain Chief complaint: Right hip pain PCP: PCP: No Primary or Family Physician HPI: Patient is a 73-year-old female with hypertension, hypothyroid [...] diagnosis of breast cancer, stage III dating back to 2013. She lost her oncologist and did not find another. She was however following up with her surgeon. She was told based off mammograms that she was cancer free. She has never undergone a PET scan in the past. Hx Obtained From Patient, Daughter History - Adult longitudinal Past medical history: Reports: Hypertension, Thyroid disorder. Denies: Alcoholism/subst abuse, Anemia , Arthritis, Asthma, Atrial fibrillation, Cancer, Congestive heart failure, COPD , Coronary artery disease, Dementia, Depression/mood disorder, Diabetes mellitus , GERD/gastritis, Kidney disease/stones, Seizure disorder, Transient ischemic attack, , Abdominal aortic aneurysm, ADD/ADHD, AIDS, Angina pectoris, Anticoagulant therapy, Atrial flutter, Bleeding disorder, BPH, C diff colitis, Cardiac dysrhythmias, Chronic pain, Cirrhosis, Congenital anomalies, Dyslipidemia, Gallbladder dis/stones, GI bleed, Glaucoma, Headache disorder, Hepatitis, HIV, Intracranial hemorrhage, Ischemic stroke, Motor dysfunction, Pancreatitis, Peptic ulcer disease, Periph arterial disease, Pressure ulcer, Prior AR, Schizophrenia, Sickle cell disease, Steroid use, Transfusion history, Tuberculosis, Urinary tract infection, Venous thromboembolism. Additional medical history: Matheus breast cancer. Past surgical history: Reports: Breast biopsy/procedure. Denies: Abdominal surgery, Appendectomy, Bariatric procedure, CABG, Carotid endarterectomy, Cholecystectomy, , Dialysis shunt/AV fistula, Heart valve procedure, Hernia repair, Hysterectomy, Pacemaker, Spine surgery, Splenectomy, Tonsillectomy, Transplant recipient, Vascular procedure, , Amputation, Anesthesia complications, Bilateral tubal ligation, Bladder surgery, Carpal tunnel release, Cranial procedure, D C, Eye surgery, Feeding tube, Hip procedure, ICD, Indwelling IV catheter, Knee procedure, Lithotripsy, Lung surgery, Nephrectomy, PCI, Prostate surgery, Thyroidectomy, Tracheotomy, CITIZEN[employer] shunt. Additional surgical history: Bilateral Breast lumpectomy for bilateral breast can cer Family history: Denies: Abdominal aortic aneurysm, Anemia, Asthma, CAD < 40 yrs old, Cancer, Coagulopathy, Dementia/Alzheimer's dis, Depression/mood disorder, Diabetes, Heart disease, Hypertension, Kidney disease/stones, Seizure disorder, Stroke/TIA , Subarachnoid hemorrhage, Sudden cardiac , Thyroid disorder, , Connective tissue dis, Gallbladder disease, Hyperlipidemia, Neurofibromatosis, Sickle cell disease. Alcohol use: Denies EtOH use Drug use: Denies recreational drugs Smoking status for patients 13 years old or older: Never Smoker Other social history: Primary family support, , retired, lives alone and daughter lives 1/2 hr away and involved in her care Medications: Home Medications: Medication Dose/Rte/Freq Days Qty Entered Last Max Daily Dose Reviewed ALBUTEROL (Unknown Dose) 12/14/23 12/14/23 (ALBUTEROL HFA 90 0355 0356 MCG/ACT) Strength: (Unknown Strength) INHALER Current Hospital Medications: Anti-Infective Agents Sig/Fozia Start time Last Medication Dose Route Stop Time Status Admin Cefazolin Sodium 1 GM Q8H 12/14 1600 AC (KEFZOL OR ANCEF) IV 12/15 0002 Sodium Chloride 10 ML (SODIUM CHLORIDE) Tobramycin Sulfate 0 .STK-MED ONE 12/14 06 DC (NEBCIN 1.2 GM .ROUTE POWDER) Vancomycin HCl 0 .STK-MED ONE 12/14 630 DC (VANCOMYCIN HCL) .ROUTE Vancomycin HCl 1,000 [...] ONE 12/14 0820 DC (GLYCOPYRROLATE) .ROUTE Rocuronium Kemp 0 .STK-MED ONE 12/14 0702 DC (ZEMURON) IV Epinephrine 0 .STK-MED ONE 12/14 0631 DC (ADRENALIN CHLORIDE) .ROUTE Albuterol/Ipratropium 3 ML RTQ4H PRN PRN 12/13 0300 AC (DUONEB) NEB 03/13 0259 Blood Formation,Coagulation Sig/Fozia Start time Last Medication Dose Route Stop Time Status Admin Tranexamic Acid 0 .K-MED ONE 12/14 0631 DC (Cyklokapron) .ROUTE Cardiovascular Drugs Sig/Fozia Start time Last Medication Dose Route Stop Time Status Admin Hydralazine HCl 5 MG PACU Q10MIN PRN PRN 12/14 0815 AC 12/14 (APRESOLINE) IV 12/14 1803 1039 Labetalol HCl 5 MG PACU Q10MIN PRN PRN 12/14 0815 AC 12/14 (labetalol) IV 12/14 1803 1027 Lidocaine HCl 0 .STK-MED ONE 12/14 0702 DC (XYLOCAINE) .ROUTE Losartan Potassium 25 MG DAILY 12/13 1603 AC 12/13 (COZAAR) PO 03/14 0859 1700 Hydralazine HCl 10 MG Q6H PRN PRN 12/13 0300 AC (APRESOLINE) IV 03/13 0259 Central Nervous System Agents Sig/Fozia Start time Last Medication Dose Route Stop Time Status Admin Fentanyl Citrate 100 MCG PACU Q10MIN PRN PRN 12/14 0815 AC (SUBLIMAZE) IV 12/14 1803 Fentanyl Citrate 50 MCG PACU Q10MIN PRN PRN 12/14 0815 AC (SUBLIMAZE) IV 12/14 1803 Hydromorphone HCl 1 MG PACU Q10MIN PRN PRN 12/14 0815 AC (DILAUDID) IV 12/14 1803 Hydromorphone HCl 0.5 MG PACU Q5MIN PRN PRN 12/14 0815 AC (DILAUDID) IV 12/14 1803 Meperidine HCl 12.5 MG PACU ONCE PRN 12/14 0815 AC (MEPERIDINE HCL/PF) IV 12/14 1804 Tramadol HCl 50 MG PACU ONCE 12/14 0815 CKD (ULTRAM) PO 12/14 1804 Hydromorphone HCl 0 .STK-MED ONE 12/14 0802 DC (DILAUDID) .ROUTE Fentanyl Citrate 0 .STK-MED ONE 12/14 0703 DC (SUBLIMAZE) .ROUTE Propofol 20 ML .STK-MED ONE 12/14 07 DC (DIPRIVAN 200MG/20ML IV INJECTION) Propofol 100 ML .STK-MED ONE 12/14 0656 DC (DIPRIVAN 1,000MG/ IV 100ML) Clonidine HCl 0 .STK-MED ONE 12/14 0631 DC (CLONIDINE 1000 MCG/ .ROUTE 10 ML VIAL) Ketorolac 0 .STK-MED ONE 12/14 0630 DC Tromethamine .ROUTE (TORADOL 30 MG) Acetaminophen 0 .STK-MED ONE 12/14 0532 DC (TYLENOL EXTRA PO STRENGTH) Celecoxib 0 .STK-MED ONE 12/14 0532 DC (CeleBREX) PO Gabapentin 0 .STK-MED ONE 12/14 0532 DC (NEURONTIN) PO Hydromorphone HCl 0.5 MG Q3H PRN PRN 12/13 1315 AC (DILAUDID) IV 12/18 1314 Acetaminophen 1,000 MG PREOP ONCALL 12/13 1245 CKD 12/14 (TYLENOL EXTRA PO 03/13 1244 0602 STRENGTH) Celecoxib 200 MG PREOP ONCALL 12/13 1245 CKD (CeleBREX) PO 01/12 2359 Gabapentin 200 MG PREOP ONCALL 12/13 1245 CKD 12/14 (NEURONTIN) PO 01/12 2359 0602 Acetaminophen 650 MG Q4H PRN PRN 12/13 0230 AC 12/13 (TYLENOL) PO 03/13 0229 1217 Diagnostic Agents Sig/Fozia Start time Last Medication Dose Route Stop Time Status Admin Gadoterate Meglumine 17 ML ONCE PRN 12/13 1830 DC 12/13 (DOTAREM) IV 1938 Electrolytic, Caloric, And Dionisio Sig/Fozia Start time Last Medication Dose Route Stop Time Status Admin Sodium Chloride 1,000 ML .[id number] 12/14 1015 DC (SODIUM CHLORIDE IV 03/14 [...] IV 12/14 2359 Sodium Chloride 1,000 ML .[id number] 12/13 0230 AC 12/13 (SODIUM CHLORIDE IV [...] SUBQ 12/21 1014 ([facility] TO DOSE) Allergies: Coded Allergies: aspirin (NAUSEA 12/14/23) cefdinir (NAUSEA 12/14/23) codeine (NAUSEA 12/14/23) morphine (NAUSEA 12/14/23) Review of Systems Constitutional: Denies: chills, fatigue, fever, generalized weakness, lethargy, malaise, recent wt loss, other. All systems rev neg: except as marked Objective VS: Last Documented: Result Date Time Pulse Ox 100 12/14 1040 B/P 198/73 12/14 1040 Pulse 54 12/14 1040 Resp 9 12/14 1040 O2 Delivery Nasal cannula 12/14 1035 O2 Flow Rate 3 12/14 1035 Temp 97.5 12/14 0948 B/P Mean 101.9 12/14 0408 PATIENT WEIGHT: Weight (lb): Weight (oz): Weight (kg): 85.000 Medications: Active Meds + DC'd Last 24 Hrs Cefazolin Sodium (KEFZOL OR ANCEF) 1 GM Q8H IV Sodium Chloride (SODIUM CHLORIDE) 10 ML Miscellaneous Information ([facility] TO DOSE) 1 EACH ASDIR SUBQ ( PEND) Sodium Chloride (SODIUM CHLORIDE 0.9%) 1,000 ML .[id number] IV (DC) Phenylephrine HCl (Phenylephrine PF 500 [...] 20 ML .STK-MED ONE IV (DC) Rocuronium Kemp (ZEMURON) 0 .STK-MED ONE IV (DC) Propofol [...] (CKD) Sodium Chloride (SODIUM CHLORIDE 0.9%) 250 ML Acetaminophen (TYLENOL EXTRA STRENGTH) 0 .STK-MED ONE PO [...] (DC) Sodium Chloride (SODIUM CHLORIDE 0.9%) 100 ML Hydrochlorothiazide (hydroCHLOROthiazide) 12.5 MG DAILY PO Losartan [...] IV Sodium Chloride (SODIUM CHLORIDE 0.9%) 250 ML Hydralazine HCl (APRESOLINE) 10 MG Q6H PRN PRN IV Acetaminophen (TYLENOL) 650 MG Q4H PRN PRN PO Al Hydrox/Mg Hydrox/Simethicone (MYLANTA) 30 ML Q4H PRN PRN PO Docusate Sodium (COLACE) 100 MG BID PRN PRN PO Sodium Chloride (SODIUM CHLORIDE 0.9%) 1,000 ML .[id number] IV Physical Exam General appearance: alert, awake, oriented Foot-left: neurovascular intact, non-tender, normal inspection, palpable pulses Foot-right: neurovascular intact, non-tender, normal inspection, palpable pulses Hip/thigh-right: pain with ROM, tenderness, neurovascular intact HEENT: atraumatic, normocephalic Neck: full range of motion, non-tender Cardiovascular: pedal pulses present, regular rate rhythm Respiratory: no distress Abdomen: non-tender, soft Neuro/SINKER PULLER: alert, oriented X 3, normal speech Skin: dry, intact Lymphatics: no lymphadenopathy Psychiatry: normal affect, normal judgment/insight, normal mood Results Findings/data: Laboratory Tests 12/14 12/13 0500 1313 Chemistry Sodium [...] (Auto) (14.0 - 32.0 %) 9.[address] [place] % (Auto) (4.8 - 9.0 %) 1.8 L Eos % (Auto) (0.3 - 3.7 %) 0.0 L Baso % (Auto) (0.0 - 2.0 %) 0.3 Neut # (Auto) (2.0 - 7.6 x10 3/uL) 6.64 Lymph # (Auto) (1.0 - 3.8 x10 3/uL) 0.[address] [place] # (Auto) (0.1 - 0.8 x10 3/uL) [...] (0.0 - 0.1 x10 3/uL) 0.00 Radiology data: Recent Impressions: [facility] - MRI THORACIC SPINE WO/W CON 12/13 1938 Report Impression - Status: SIGNED Entered: 12/14/20232021 IMPRESSION: Findings consistent with extensive metastatic involvement seen throughout the thoracic spine. There is significant epidural component at T8 seen left ventral to the thecal sac and left laterally with perhaps minimal cord compression and there is a left paracentral ventral epidural component identified at T7 without definite cord compression. Multilevel spondylosis is also seen resulting compromise of the canal at T9-T10 and at T10-T11 Impression By: Delfina - Ann Oneill M.D. X-ray interpretation: Right pathologic femoral neck fracture with mixed lesions about the bilateral proximal femur and pelvic ring as well as thoracic spine Diagnosis, Assessment Plan Problem List/A P: 1. Right femoral fracture Free Text A P: The patient is a 73-year-old female with a complex problem. It appears that she has metastatic disease likely from continued breast cancer. [...] risk of mortality without surgery. This plan has been communicated to the primary team and the patient. Plan to proceed with right hip hemiarthroplasty. NPO. at 1124 RPT #:[id number] END OF REPORT [facility] 2023-12-14 17:05:00 [facility] ([facility]) Neurosurgical Consultation REPORT#:[id number] REPORT STATUS: Signed REPORT INITIALIZATION DATE:12/14/23 TIME: 1704 PATIENT: JUSTYNA GAMING UNIT #: [id number] ROOM/BED: [place] [address] : 49 AGE: 73 SEX: F ATTEND: Mirna Delcid DO ADM AUTHOR: Blanco Worrell MD REPT SERVICE DT/TIME: 12/14/231704 * ALL edits or amendments must be made on the electronic/computer document * History of Present Illness HPI: 73 years old RHWF, admitted emergently due to [...] XRT and chempotherapy. She has been followed ( last in ) at [facility] by Dr. Mcqueen (breast surgeon) since then. [...] are normal by history. History - Adult longitudinal Past medical history: Reports: Hypertension, Thyroid disorder. Denies: Alcoholism/subst abuse, Anemia , Arthritis, Asthma, Atrial fibrillation, Cancer, Congestive heart failure, COPD , Coronary artery disease, Dementia, Depression/mood disorder, Diabetes mellitus , GERD/gastritis, Kidney disease/stones, Seizure disorder, Transient ischemic attack, , Abdominal aortic aneurysm, ADD/ADHD, AIDS, Angina pectoris, Anticoagulant therapy, Atrial flutter, Bleeding disorder, BPH, C diff colitis, Cardiac dysrhythmias, Chronic pain, Cirrhosis, Congenital anomalies, Dyslipidemia, Gallbladder dis/stones, GI bleed, Glaucoma, Headache disorder, Hepatitis, HIV, Intracranial hemorrhage, Ischemic stroke, Motor dysfunction, Pancreatitis, Peptic ulcer disease, Periph arterial disease, Pressure ulcer, Prior AR, Schizophrenia, Sickle cell disease, Steroid use, Transfusion history, Tuberculosis, Urinary tract infection, Venous thromboembolism. Past surgical history: Reports: Breast biopsy/procedure. Denies: Abdominal surgery, Appendectomy, Bariatric procedure, CABG, Carotid endarterectomy, Cholecystectomy, , Dialysis shunt/AV fistula, Heart valve procedure, Hernia repair, Hysterectomy, Pacemaker, Spine surgery, Splenectomy, Tonsillectomy, Transplant recipient, Vascular procedure, , Amputation, Anesthesia complications, Bilateral tubal ligation, Bladder surgery, Carpal tunnel release, Cranial procedure, D C, Eye surgery, Feeding tube, Hip procedure, ICD, Indwelling IV catheter, Knee procedure, Lithotripsy, Lung surgery, Nephrectomy, PCI, Prostate surgery, Thyroidectomy, Tracheotomy, [employer] shunt. Additional surgical history: Bilateral Breast lumpectomy for bilateral breast can cer Family history: Denies: Abdominal aortic aneurysm, Anemia, Asthma, CAD < 40 yrs old, Cancer, Coagulopathy, Dementia/Alzheimer's dis, Depression/mood disorder, Diabetes, Heart disease, Hypertension, Kidney disease/stones, Seizure disorder, Stroke/TIA , Subarachnoid hemorrhage, Sudden cardiac , Thyroid disorder, , Connective tissue dis, Gallbladder disease, Hyperlipidemia, Neurofibromatosis, Sickle cell disease. Alcohol use: Denies EtOH use Drug use: Denies recreational drugs Smoking status for patients 13 years old or older: Never Smoker Other social history: Primary family support, , retired, lives alone and daughter lives 1/2 hr away and involved in her care Allergies: Coded Allergies: aspirin (NAUSEA 12/14/23) cefdinir (NAUSEA 12/14/23) codeine (NAUSEA 12/14/23) morphine (NAUSEA 12/14/23) Review of Systems ROS Constitutional: Reports other (hip leg pain), Denies chills, Denies fatigue, Denies fever, Denies generalized weakness, Denies lethargy, Denies malaise, Denies recent wt loss Objective VS/I O: Last Documented: Result Date Time Pulse Ox [...] appearance: alert, awake, pleasant, conversational, mental status normal , appear well nourished and not cachectic Neuro/SINKER PULLER: alert, oriented X 3, CN II-XII intact, EOMI, PERRL, normal speech, LLE 5/5, RLE 2/5 proximally and 4+/5 distally, questionable sensory level on the right at T8/9 level with slightly decreased touch sensation. Diagnosis, Assessment Plan Free Text A P: 73 years old lady with recently diagnosed (in this admission) widespread metastatic disease from breast cancer diagnosed and managed for the past 10 years. Patient has several osteolytic lesions leading to pathological fractures. As far as her spine is concerned, she has multilevel osteolytic lesions with significant epidural component but no gross collase of vertebral bodies. There is severe cord compression even seen in CT scan which greatly increases her risk of impending paraplegia.Once the MRI is performed, I shall have a much better sense about the risk-benefit ratio of palliative spinal surgical procedure ( thoracic laminectomy, with or without instrumented stabilization) with the main goal of preventing dev. of paraplegia which may be important for her quality of life, unless life expectancy is less than 2 months, soecially since she still has relatively good BLE motor function. Discussed with patient, her daughter, Dr. Mosher and RN. We shall await MRI, hopefully done by today, as per my discussion with the sleep technician. If she gets her hip fracture addressed surgically by [facility] (Dr. Hurtado), it is imperative that adequate spinal precautions are being taken during positioning in the OR for her hip surgery. at 9523 RPT #:[id number] END OF REPORT [facility] 2023-12-14 16:36:00 [id number] [place] [address] PATIENT NAME: JUSTYNA GAMING ADMIT DATE: 12/13/23 ACCOUNT NO: [id number] ROOM NO: [facility] [place] AGE: 73 REPORT TYPE: eELECTROCARDIOGRAM REPORT SEX: F ADMITTING PHYSICIAN:Marques Lim MD ATTENDING PHYSICIAN:Mirna Delcid DO Order: [id number] Test Reason : PRE OP PROTOCOL Test Date/Time Stamp: WedDec 14 2023 16:36:41 Blood Pressure : / mmHG Vent. Rate : 067 BPM Atrial Rate : 067 BPM P-R Int : 156 ms QRS Dur : 084 ms QT Int : 412 ms P-R-T Axes : 071 -31 077 degrees QTc Int : 435 ms Sinus rhythm with marked sinus arrhythmia Left axis deviation Nonspecific ST and T wave abnormality Abnormal ECG No previous ECGs available Confirmed by WILLIAM GARCIA MD ([id number]) on 12/14/2023 6:35:48 PM Referred By: Mirna Delcid Confirmed by:WILLIAM GARCIA MD at 6460 PATIENT NAME: JUSTYNA GAMING [facility] 2023-12-14 16:27:00 [facility] ([facility]) Tevin/Oncology Consult Note REPORT#:[id number] REPORT STATUS: Signed REPORT INITIALIZATION DATE:12/14/23 TIME: 1626 PATIENT: JUSTYNA GAMING UNIT #: [id number] ROOM/BED: [facility] [place] : 49 AGE: 73 SEX: F ATTEND: Mirna Delcid DO ADM AUTHOR: Leanna Mosher MD REPT SERVICE DT/TIME: 12/14/231626 * ALL edits or amendments must be made on the electronic/computer document * See Addendum History of Present Illness Requesting clinician: Dr Delcid Reason for consult: metastatic malignancy Chief complaint: weakness and fall with pathological fracture. PCP: PCP: No Primary or Family Physician HPI: This vanita pelasant 73 yo woman with h/o bilateral breast cancer HR positive ? Her [address] positive high risk disease at presentation diagnosed in 2013. He was under care of DR Mcqueen at [facility]. she has not been on endocrine therapy [...] to walk using walker. History - Adult longitudinal Past medical history: Reports: Cancer, Hypertension, Thyroid disorder. Additional medical history: Matheus breast cancer. Smoking status for patients 13 years old or older: Never Smoker Medications: Home Medications: Medication Dose/Rte/Freq Days Qty Entered Last Max Daily Dose Reviewed ALBUTEROL (Unknown Dose) 12/14/23 12/14/23 (ALBUTEROL HFA 90 0355 0356 MCG/ACT) Strength: (Unknown Strength) INHALER Current Hospital Medications: Anti-Infective Agents Sig/Fozia Start time Last Medication Dose [...] 12/12 2201 DC 12/12 (APRESOLINE) IV 12/12 2203 2230 Central Nervous System Agents Sig/Fozia Start [...] IV 12/14 2359 Sodium Chloride 1,000 ML .[id number] 12/13 0230 AC 12/13 (SODIUM CHLORIDE IV [...] 12/12 2201 DC 12/12 (ZOFRAN) IV 12/12 2202 2231 Allergies: Coded Allergies: aspirin (NAUSEA 12/14/23) cefdinir (NAUSEA 12/14/23) codeine (NAUSEA 12/14/23) morphine (NAUSEA 12/14/23) Objective Physical Exam VS: Vital Signs Date Temp Pulse Resp B/P B/P [...] Weight (kg): 85.000 General appearance: alert, awake, oriented HEENT: pupils reactive to light Cardiovascular: regular rate and rhythm, normal heart sounds Respiratory: aerating well, symmetric expansion Abdomen: non-tender, soft Extremities: limited exam . limited movement due to paina nd fracture Results Findings/Data: Laboratory Tests 12/14/23 1313: [Embedded Image Not Available] 12/13/23 2254: [Embedded Image Not Available] Laboratory Tests 12/13 12/13 12/12 1313 0259 2254 [...] - 72.0 pg/mL) 11.5 L Laboratory Tests 12/124 Coagulation INR (0.8 - 1.2) 1.2 PT [...] (Auto) (14.0 - 32.0 %) 10.[address] [place] % (Auto) (4.8 - 9.0 %) 5.8 Eos % (Auto) (0.3 - 3.7 %) 0.3 Baso % (Auto) (0.0 - 2.0 %) 0.3 Neut # (Auto) (2.0 - 7.6 x10 3/uL) 4.98 Lymph # (Auto) (1.0 - 3.8 x10 3/uL) 0.[address] [place] # (Auto) (0.1 - 0.8 x10 3/uL) 0.35 Eos # (Auto) (0.0 - 0.2 x10 3/uL) 0.02 Baso # (Auto) (0.0 - 0.2 x10 3/uL) 0.02 Abs Immat Gran (auto) (0.00 - 0.03 x10 3/uL) 0.03 Immature Gran % (0.0 - 2.0 %) 0.5 Nucleated RBC % (0 - 0 %) 0.0 Nucleated RBCs # (Man) (0.0 - 0.1 x10 3/uL) 0.00 Radiology data: Recent Impressions: RADIOLOGY - XR HIP MATHEUS W/PELVIS 2-3 VIEWS 12/12 2209 Report Impression - Status: SIGNED Entered: 12/13/20232245 IMPRESSION: Subcapital right femoral fracture. Impression By: Elizabeth Chu M.D. RADIOLOGY - XR FEMUR 2 VIEWS BI 12/12 2209 Report Impression - Status: SIGNED Entered: 12/13/20232245 IMPRESSION: Subcapital right femoral fracture. Impression By: Elizabeth Chu M.D. CAT SCAN - CT LOWER EXTRM W/CON RT 12/12 2333 Report Impression - Status: SIGNED Entered: 12/14/2023 0035 IMPRESSION: Extensive lytic osseous metastatic disease. Acute pathologic subcapital right femoral neck fracture. Subacute appearing right superior and inferior pubic rami fractures. Impression By: Leonela White M.D. CAT SCAN - CT ABD PELVIS W WO CONT 12/12 2333 Report Impression - Status: SIGNED Entered: 12/14/2023 0027 IMPRESSION: Markedly severe diffuse predominantly lytic osseous metastatic [...] not meet criteria for enhancement suggesting hyperdense cyst. Impression By: Leonela White M.D. CAT SCAN - CT CHEST W W/O CONT 12/12 2334 Report Impression - Status: SIGNED Entered: 12/14/2023 0027 IMPRESSION: Markedly severe diffuse predominantly lytic osseous metastatic [...] not meet criteria for enhancement suggesting hyperdense cyst. Impression By: Leonela White M.D. CAT SCAN - CT LOWER EXTRM W/O C RT 12/12 2335 Report Impression - Status: SIGNED Entered: 12/14/2023 0036 IMPRESSION: Extensive lytic osseous metastatic disease. Acute pathologic subcapital right femoral neck fracture. Subacute appearing right superior and inferior pubic rami fractures. Impression By: Leonela White M.D. Diagnosis, Assessment Plan Free Text DxA P Notes Free Text DxA P Notes: 1. Breast cancer 2. Metastatic malignancy likely recurrent breast 3. Spinal stenosis due to metastaic disease 4. pathological hip fracture I d/w patient, daughter and son at bedside. she has extensive disease I agree with initial management of her hip to help with her fracture. request tissue for path confirmationa nd molecular tumor profiling. I will obtaina nd review her [facility] records for initial cancer history. start dex 4mg TID IV spoke to neurosurgery DR Worrell. she has rather extensive area which will require a long surgery and recovery and post op management will be challenging. requested MRI spine I will also d/w XRT oncology once MRI [...] 1638 Addendum 1: 12/14/23 1640 by Leanna Mosher MD hypercalcemia: ordered zometa 4mg iv x 1 monitor calcium. at 1640 RPT #:[id number] END OF REPORT [facility] 2023-12-14 15:57:00 [facility] Clinical Note REPORT#:[id number] REPORT STATUS: Signed REPORT INITIALIZATION DATE:12/14/23 TIME: 1556 PATIENT: JUSTYNA GAMING UNIT #: [id number] ROOM/BED: [place] [address] : 49 AGE: 73 SEX: F ATTEND: Mirna Delcid DO ADM AUTHOR: Mirna Delcid DO REPT SERVICE DT/TIME: 12/14/231556 * ALL edits or amendments must be made on the electronic/computer document * Clinical Note Note: Patient seen and evaluated by admitting physician this AM. Radiology findings including extensive metastaic bone disease, R RCC and liver lesion discussed with patient and oncology. Ortho planning for R hip arthroplasty in AM. Neurosurgery consulted for spinal mass with severe thoracic spinal stenosis. Patient reports known severe stenosis in cervical and lumbar spine. Patient able to move lower extremities but states she has not been walking secondary to pain. She denies bladder and bowel incontinence. Decadron started. MRI ordered per neurosurgery. Pain medication increased and Blood pressure medication added. at 1604 RPT #:[id number] END OF REPORT [facility] 2023-12-14 02:24:00 [facility] ([facility]) Hospitalist History Physical REPORT#:[id number] REPORT STATUS: Signed REPORT INITIALIZATION DATE:12/14/23 TIME: 223 PATIENT: JUSTYNA GAMING UNIT #: [id number] ROOM/BED: [place] [address] : 49 AGE: 73 SEX: F ATTEND: Marques Lim MD ADM AUTHOR: Marques Lim MD REPT SERVICE DT/TIME: 12/14/23223 * ALL edits or amendments must be made on the electronic/computer document * History of Present Illness HPI Chief complaint: Right hip pain HPI: Patient is a 73 years old lady with past medical history of hypertension, hypothyroidism, asthma, spinal stenosis and breast cancer. She presented to the emergency room on account of inability to walk of about 90 days duration. She also noted sudden episode of right hip pain. This pain is worse with walking. Pain became unbearable and it was difficult for patient to ambulate. She denies any history of fall. Imaging demonstrated right hip fracture and also right femoral fracture. Orthopedic unit has been consulted. Patient is being admitted for further evaluation of suspected pathological fracture. She has a history of breast cancer. Her last visit to her doctor was in April 2023. Hx Obtained From Patient History Past Medical Surgical Hx Patient History: 1. Right femoral fracture Social History Smoking status for patients 13 years old or older: Never Smoker Medication/Allergy-Vaccine Hx Allergies: Coded Allergies: aspirin (NAUSEA 12/14/23) cefdinir (NAUSEA 12/14/23) codeine (NAUSEA 12/14/23) morphine (NAUSEA 12/14/23) Review of Systems Constitutional: Reports: fatigue. Denies: chills, fever, recent wt loss. Eyes: Denies: redness, discharge, itching. Respiratory: Denies: hemoptysis, pleurisy, wheezing. Cardiovascular: Denies: chest pain, palpitations. GI: Denies: constipation, diarrhea, nausea, vomiting. Musculoskeletal: Reports: joint pain, neck pain. Neuro: Reports: dizziness, gait problem. Denies: confusion, seizure. All systems rev neg: except as noted OBJECTIVE Medications: Active Meds + DC'd Last 24 Hrs Acetaminophen (TYLENOL) 650 MG Q4H PRN PRN PO Al Hydrox/Mg Hydrox/Simethicone (MYLANTA) 30 ML Q4H PRN PRN PO Docusate Sodium (COLACE) 100 MG BID PRN PRN PO Sodium Chloride (SODIUM CHLORIDE 0.9%) 1,000 ML .[id number] IV Iopamidol (ISOVUE-300 100ML) 150 ML .STK-MED ONE IV (DC) Hydralazine HCl (APRESOLINE) 10 MG X1ED STA IV (DC) Hydromorphone HCl (DILAUDID) 1 MG X1ED STA IV (DC) Ondansetron HCl (ZOFRAN) 4 MG X1ED STA IV (DC) Results Findings/Data: Laboratory Tests: 12/12 2254 Chemistry Sodium (134 - 147 mEq/L) [...] (Auto) (14.0 - 32.0 %) 10.[address] [place] % (Auto) (4.8 - 9.0 %) 5.8 Eos % (Auto) (0.3 - 3.7 %) 0.3 Baso % (Auto) (0.0 - 2.0 %) 0.3 Neut # (Auto) (2.0 - 7.6 x10 3/uL) 4.98 Lymph # (Auto) (1.0 - 3.8 x10 3/uL) 0.[address] [place] # (Auto) (0.1 - 0.8 x10 3/uL) [...] - 0.1 x10 3/uL) 0.00 Laboratory Tests 12/13/23 2254: [Embedded Image Not Available] Radiology data: Recent Impressions: RADIOLOGY - XR HIP MATHEUS W/PELVIS 2-3 VIEWS 12/12 2209 Report Impression - Status: SIGNED Entered: 12/13/20232245 IMPRESSION: Subcapital right femoral fracture. Impression By: Elizabeth Chu M.D. RADIOLOGY - XR FEMUR 2 VIEWS BI 12/12 2209 Report Impression - Status: SIGNED Entered: 12/13/20232245 IMPRESSION: Subcapital right femoral fracture. Impression By: StephanieHVShayla Chu M.D. CAT SCAN - CT LOWER EXTRM W/CON RT 12/12 2333 Report Impression - Status: SIGNED Entered: 12/14/2023 0035 IMPRESSION: Extensive lytic osseous metastatic disease. Acute pathologic subcapital right femoral neck fracture. Subacute appearing right superior and inferior pubic rami fractures. Impression By: Leonela White M.D. CAT SCAN - CT ABD PELVIS W WO CONT 12/12 2333 Report Impression - Status: SIGNED Entered: 12/14/202326 IMPRESSION: Markedly severe diffuse predominantly lytic osseous metastatic [...] not meet criteria for enhancement suggesting hyperdense cyst. Impression By: Leonela White M.D. CAT SCAN - CT CHEST W W/O CONT 12/12 2333 Report Impression - Status: SIGNED Entered: 12/14/202326 IMPRESSION: Markedly severe diffuse predominantly lytic osseous metastatic [...] not meet criteria for enhancement suggesting hyperdense cyst. Impression By: Leonela White M.D. CAT SCAN - CT LOWER EXTRM W/O C RT 12/12 2334 Report Impression - Status: SIGNED Entered: 12/14/2023 0036 IMPRESSION: Extensive lytic osseous metastatic disease. Acute pathologic subcapital right femoral neck fracture. Subacute appearing right superior and inferior pubic rami fractures. Impression By: [email or web address] - Timothy White M.D. Free Text PE Notes Free Text PE Notes: General/Const Awake, Alert, oriented HENT Head atraumatic, normocephalic, ears/nose/throat airway patent, TMs clear bilaterally MS Neck Neck Supple, no swelling, no tenderness to palpation Resp/Chest CTAB, No respiratory distress, no rales, no rhonchi, no wheezing Cardiovascular Normal rate, regular rhythm, heart sounds. No rubs murmurs gallops Abdomen/GI Normal bowel sounds, soft, nontender, nondistended. No rebound or guarding MS No bony deformity, 2+ DP pulses bilaterally. Some mild swelling to the right lower extremity Skin Skin Warm, Dry, no abrasions, rashes, lacerations Neurologic Neurologic Oriented X3, Speech NL, no focal neuro deficits, CN 2-12 intact, 5 /5 strength, sensation intact Diagnosis, Assessment Plan Problem List/A P: 1. Right femoral fracture Free Text A P: Assessment Right femoral fracture Right hip fracture Multiple lytic bone lesions Hypercalcemia Hypertension Asthma pneumonia History of breast cancer Plans Reviewed imaging reports, concerning for metastatic process Orthopedic consulted in the ER Consider oncology consult in the morning Analgesia as tolerated Iv zithromax Duoneb breathing treatment q4h prn Supp O2 as needed IV fluid, monitor serum calcium. PTH ordered IV prn hydralazine for elevated blood pressure, resume home medications when updated Further care per clinical course CODE STATUS: full code. at 0621 [facility] #:[id number] END OF REPORT [facility] 2023-12-13 21:43:00 [facility] ([facility]) EMERGENCY PROVIDER REPORT REPORT#:[id number] REPORT STATUS: Signed DATE:12/13/23 TIME: 2142 PATIENT: JUSTYNA GAMING UNIT #: [id number] ROOM/BED: [place] [address] AGE: 73 SEX: F PCP PHYS: No Primary or Family Physician SERVICE AUTHOR: Randee Joe MD * ALL edits or amendments must be made on the electronic/computer document * HPI-Extremity Prob Lower General Initial Greet Date/Time 12/13/232057 Presentation Chief Complaint Hip problem R, Thigh problem R Free Text HPI Notes Free Text HPI Notes 73-year-old female with a history of hypertension, hypothyroidism, breast cancer currently in remission who presents to the emergency [...] Prior to arrival she was given Dilaudid, Zofran and Toradol. Patient denies any trauma. Review of Systems ROS Statements All systems rev neg except as marked. Focused Review of Systems Musculoskeletal Reports: Extremity pain. Past Medical History - Adult Stated Complaint RIGHT HIP FX Allergies Coded Allergies: No Known Allergies (12/13/23) Past Medical History: Reports: Cancer, Hypertension, Thyroid disorder. Physical Exam Vital Signs Vital Signs First Documented: Result Date Time Pulse Ox 93 [...] Reviewed, Vital signs normal Free Text PE Notes Free Text PE Notes General/Const Awake, Alert HENT Head atraumatic, normocephalic, ears/nose/throat airway patent, TMs clear bilaterally MS Neck Neck Supple, no swelling, no tenderness to palpation Resp/Chest CTAB, No respiratory distress, no rales, no rhonchi, no wheezing Cardiovascular Normal rate, regular rhythm, heart sounds. No rubs murmurs gallops Abdomen/GI Normal bowel sounds, soft, nontender, nondistended. No rebound or guarding MS No bony deformity, 2+ DP pulses bilaterally. Some mild swelling to the right lower extremity Skin Skin Warm, Dry, no abrasions, rashes, lacerations Neurologic Neurologic Oriented X3, Speech NL, no focal neuro deficits, CN 2-12 intact, 5 /5 strength, sensation intact Re-Evaluation [facility] ED Course Medication(s) Ordered Medication(s) Ordered: Cardiovascular Drugs Sig/Fozia Start time Last Medication [...] STA 12/12 2201 DC 12/12 IV 12/12 Consultation Consultation Referral/Consult Name Alirio Hurtado MD Requested Call Time 2199 Requested Call Date 12/13/23 Call Returned Call returned Free Text Consult Notes Recommended getting a CT with and without of the chest, abdomen, pelvis, x-ray of the femur bilateral and hip bilateral Free Text MDM Notes Free Text MDM Notes 73-year-old female with a history of hypertension, hypothyroidism, breast cancer currently in remission who presents to the emergency [...] Prior to arrival she was given Dilaudid, Zofran and Toradol. Patient denies any trauma. Vital signs stable. No bony deformity, 2+ DP pulses bilaterally. Some mild swelling to the right lower extremity. No further workup needed at this time in the emergency department will admit to hospital medicine and place a consult for orthopedic surgery who recommended getting CT imaging with and without of the chest, abdomen, pelvis, x-rays of the femur and bilateral hips to rule out metastatic cancer. Inpatient team will follow-up on results. Patient will be admitted at this time. Will also place hematology oncology consult. Patient Discharge Departure Vital Signs/Condition Vital Signs First Documented: Result Date Time Pulse Ox 93 [...] entry have been reviewed. Condition Stable Clinical Impression Clinical Impression Primary Impression: Right femoral fracture Disposition Decision Hospitalize Hosp Physician Name Marques Lim MD )( Accepts Hospitalization Yes )( Reason for Hospitalization FEMUR FRACTURE, NO TRAUMA )( Accepted Time 2200 )( Accepted Date 12/13/23 Call Information will see patient at [address] [facility] #:[id number] END OF REPORT [facility]
--- NOTE | 2024-11-14 18:19 | RAD REPORT ---
EXAMINATION: XR LEFT HUMERUS HISTORY: PAIN TECHNIQUE: Multiple views of the left humerus were obtained. COMPARISON: None FINDINGS: Mildly displaced fracture involving the head and proximal shaft of the humerus, with mild v olar apex angulation seen on the lateral view. Moderate AC joint and glenohumeral joint degenerative changes. No dislocation.
[2024-11-14] MEDS ORDERED: TRAMADOL HCL 50 MG TAB ONE (19:08)
--- NOTE | 2024-11-14 19:29 | ER ---
Nurse's Notes [facility] Name: Amy Gaming Age: 74 yrs Sex: Female : 1950 Arrival Date: 11/14/2024 Time: 16:32 Bed 23 Private MD: Diagnosis: Pathologic fracture of left humerus Presentation: 11/14 16:55 Chief complaint: EMS states: Left arm pain x2 weeks, saw her PCP today. Has stage 4 jb4 bone cancer and breast cancer. She was walking her dog and the dog took off running and felt her mid left upper arm pop. 8/10 pain with movement. Pulses present and strong in the left wrist. 16:56 Coronavirus screen: At this time, the client does not indicate any symptoms associated jb4 with coronavirus-19. Ebola Screen: No symptoms or risks identified at this time. Initial Sepsis Screen: Does the patient meet any 2 criteria? No. Patient's initial sepsis screen is negative. Does the patient have a suspected source of infection? No. Patient's initial sepsis screen is negative. Risk Assessment: Do you want to hurt yourself or someone else? Patient reports no desire to harm self or others. Onset of symptoms was November 14, 2024. Transition of care: patient was not received from another setting of care. 16:56 Method Of Arrival: EMS: [facility] jb4 16:56 Acuity: NAM 3 jb4 Historical: - Allergies: 16:56 Aspirin; jb4 16:56 Morphine; jb4 16:56 Codeine; jb4 16:56 SHELLFISH; jb4 - Home Meds: 16:56 gabapentin oral [Active]; Lasix Oral [Active]; levothyroxine oral [Active]; Tramadol jb4 Oral [Active]; - PMHx: 16:56 Hypertensive disorder; Hypothyroidism; Stage 4 bone cancer (Hypothyroidism); stage 4 jb4 breast cancer (Hypothyroidism); hip fracture (Hypothyroidism); - PSHx: 16:56 Hip surgery (Hypothyroidism); jb4 - Family history:: not pertinent. Screenin:06 [facility] ED Fall Risk Assessment (Adult) History of falling in the last 3 months, jb4 including since admission No falls in past 3 months (0 pts) Confusion or Disorientation No (0 pts) Intoxicated or Sedated No (0 pts) Impaired Gait No (0 pts) Mobility Assist Device Used No (0 pt) Altered Elimination No (0 pt) Score/Fall Risk Level 0 - 2 = Low Risk Oriented to surroundings, Maintained a safe environment. Abuse screen: Denies threats or abuse. Nutritional screening: No deficits noted. Tuberculosis screening: No symptoms or risk factors identified. Assessment: 17:06 General: Appears in no apparent distress. comfortable, Behavior is calm, cooperative, jb4 appropriate for age. Pain: Complains of pain in left bicep Pain does not radiate. Pain currently is 4 out of 10 on a pain scale. Neuro: Level of Consciousness is awake, alert, obeys commands, Oriented to person, place, time, situation. Cardiovascular: Patient's skin is warm and dry. Respiratory: Airway is patent Respiratory effort is even, unlabored, Respiratory pattern is regular, symmetrical. Derm: Skin is intact, Skin is pink, warm \T\ dry. 18:22 Reassessment: Patient appears in no apparent distress at this time. Patient and/or jb4 family updated on plan of care and expected duration. Pain level reassessed. Patient is alert, oriented x 3, equal unlabored respirations, skin warm/dry/pink. Vital Signs: 16:56 BP 176 / 75; Pulse 76; Resp 16; Temp 97.6(O); Pulse Ox 100% on R/A; Weight 69.4 kg; jb4 Height 5 ft. 3 in. ; 18:22 BP 160 / 71; Pulse 77; Resp 16; Pulse Ox 94% on R/A; jb4 19:23 BP 177 / 75; Pulse 92; Resp 16; Pulse Ox 97% on R/A; jb4 16:56 Body Mass Index 27.10 (69.40 kg, 160.02 cm) jb4 ED Course: 16:54 Patient arrived in ED. jb4 16:54 Carter Donnelly, ELZA is Primary Nurse. jb4 16:57 Sourav Mcguire MD is Attending Physician. rt 17:04 Triage completed. jb4 17:05 Arm band placed on right wrist. jb4 17:06 Patient has correct armband on for positive identification. Bed in low position. Call jb4 light in reach. Side rails up X 1. Provided Education on: plan of care. 17:36 Humerus Left XRAY In Process Unspecified. EDMS 19:28 Chris Gilbert MD is Referral Physician. rt 19:28 Monty Vazquez MD is Referral Physician. rt 19:28 Wilson Shaw MD is Referral Physician. rt 19:53 No provider procedures requiring assistance completed. Patient did not have IV access jb4 during this emergency room visit. Administered Medications: 19:16 Drug: traMADol PO 50 mg PO once Route: PO; jb4 19:53 Follow up: Response: No adverse reaction; Marked relief of symptoms jb4 Medication: 17:06 VIS not applicable for this client. jb4 Outcome: 19:29 Discharge ordered by . rt 19:53 Discharged to home via wheelchair, with family, jb4 19:53 Condition: stable 19:53 Discharge instructions given to patient, Instructed on discharge instructions, follow up and referral plans. medication usage, Demonstrated understanding of instructions, follow-up care, medications, Prescriptions given X 1, 19:54 Patient left the ED. jb4 Signatures: Dispatcher [employer] EDMS Carter Donnelly RN RN jb4 Sourav Mcguire MD MD rt
--- NOTE | 2024-11-14 19:29 | EDPHYS ---
Physician Documentation [facility] Name: Amy Gaming Age: 74 yrs Sex: Female : 1950 Arrival Date: 11/14/2024 Time: 16:32 Bed 23 Private MD: ED Physician Sourav Mcguire HPI: 11/14 20:11 This 74 yrs old Female presents to ER via EMS with complaints of Left arm pain. rt 20:11 Patient with known metastatic breast cancer with mets to both of the humerus bones rt presents to the ED with a pain to the left arm that occurred when she was walking her dog. States that her dog pulled, she felt a pop and pain to that arm. She denies other injury, acute complaints, symptoms are moderate severity, aching nature, nonradiating, no other aggravating alleviating factors.. Historical: - Allergies: 16:56 Aspirin; jb4 16:56 Morphine; jb4 16:56 Codeine; jb4 16:56 SHELLFISH; jb4 - Home Meds: 16:56 gabapentin oral [Active]; Lasix Oral [Active]; levothyroxine oral [Active]; Tramadol jb4 Oral [Active]; - PMHx: 16:56 Hypertensive disorder; Hypothyroidism; Stage 4 bone cancer (Hypothyroidism); stage 4 jb4 breast cancer (Hypothyroidism); hip fracture (Hypothyroidism); - PSHx: 16:56 Hip surgery (Hypothyroidism); jb4 - Family history:: not pertinent. ROS: 20:11 Constitutional: Negative for fever, chills, and weight loss, Cardiovascular: Negative rt for chest pain, palpitations, and edema, Respiratory: Negative for shortness of breath, cough, wheezing, and pleuritic chest pain, Abdomen/GI: Negative for abdominal pain, nausea, vomiting, diarrhea, and constipation, Skin: Negative for injury, rash, and discoloration, Neuro: Negative for headache, weakness, numbness, tingling, and seizure, 20:11 MS/extremity: Positive for pain, Negative for deformity, Exam: 20:11 Constitutional: This is a well developed, well nourished patient who is awake, alert, rt and in no acute distress. Head/Face: Normocephalic, atraumatic. Chest/axilla: Normal chest wall appearance and motion. Nontender with no deformity. No lesions are appreciated. Cardiovascular: Regular rate and rhythm with a normal S1 and S2. No gallops, murmurs, or rubs. Normal PMI, no JVD. No pulse deficits. Respiratory: Lungs have equal breath sounds bilaterally, clear to auscultation and percussion. No rales, rhonchi or wheezes noted. No increased work of breathing, no retractions or nasal flaring. Abdomen/GI: Soft, non-tender, with normal bowel sounds. No distension or tympany. No guarding or rebound. No evidence of tenderness throughout. Skin: Warm, dry with normal turgor. Normal color with no rashes, no lesions, and no evidence of cellulitis. 20:11 Musculoskeletal/extremity: Tenderness to the mid left humerus, no deformities noted, no tenderness of the elbow, shoulder. Pulses, motor, sensation are intact.. Vital Signs: 16:56 BP 176 / 75; Pulse 76; Resp 16; Temp 97.6(O); Pulse Ox 100% on R/A; Weight 69.4 kg; jb4 Height 5 ft. 3 in. ; 18:22 BP 160 / 71; Pulse 77; Resp 16; Pulse Ox 94% on R/A; jb4 19:23 BP 177 / 75; Pulse 92; Resp 16; Pulse Ox 97% on R/A; jb4 16:56 Body Mass Index 27.10 (69.40 kg, 160.02 cm) jb4 MDM: 17:10 Medical Screening Exam initiated rt 20:11 Differential Diagnosis Fracture, pathologic fracture. Data reviewed: vital signs, rt nurses notes, radiologic studies. I considered the following discharge prescriptions or medication management in the emergency department Medications were administered in the Emergency Department. See MAR. Independent interpretation of the following test(s) in the Emergency Department X-Ray: My interpretation is Humeral fracture seen on interpretation of x-ray images. Care significantly affected by the following chronic conditions: Metastatic breast cancer. Counseling: I had a detailed discussion with the patient and/or guardian regarding the historical points, exam findings, and any diagnostic results supporting the discharge/admit diagnosis, radiology results, the need for outpatient follow up, to return to the emergency department if symptoms worsen or persist or if there are any questions or concerns that arise at home. Response to treatment: the patient's symptoms have mildly improved after treatment. 11/14 17:18 Order name: Humerus Left XRAY; Complete Time: 18:20 rt 11/14 19:28 Order name: Sling; Complete Time: 19:53 rt Administered Medications: 19:16 Drug: traMADol PO 50 mg PO once Route: PO; jb4 19:53 Follow up: Response: No adverse reaction; Marked relief of symptoms jb4 Disposition Summary: 11/14/24 19:29 Discharge Ordered Notes: Location: Home rt Problem: new rt Symptoms: are unchanged rt Condition: Stable rt Diagnosis - Pathologic fracture of left humerus rt Followup: rt - With: Chris Gilbert MD - When: 2 - 3 days - Reason: Followup: rt - With: Monty Vazquez MD - When: 2 - 3 days - Reason: Followup: rt - With: Wilson Shaw MD - When: 2 - 3 days - Reason: Discharge Instructions: - Discharge Summary Sheet rt - Humerus Fracture Treated With Immobilization rt Forms: - Medication Reconciliation Form rt - Antibiotic Education rt - Prescription Opioid Use rt - Patient Portal Instructions rt - Leadership Thank You Letter rt Prescriptions: - Tramadol 50 mg Oral tablet - take 1 tablet ORAL route every 8 hours as needed; 21 tablet; Refills: 0, rt Product Selection Permitted Signatures: Dispatcher [employer] Carter Paulson RN RN jb4 Sourav Mcguire MD MD rt Corrections: (The following items were deleted from the chart) 17:18 17:18 Humerus Left+RAD.RAD.[email or web address] ordered. EDMS EDMS
[2024-11-14 20:21] VITALS: TEMP 97.6
[2024-11-14 20:27] VITALS: BP 177/75; O2SAT 97
== END 2024-11-14 19:54 | disposition home or self-care (01) ==
LOC: ER 16:32
DX: M84.422A Pathological fracture, left humerus, initial encounter for fracture (principal); Z85.3 Personal history of malignant neoplasm of breast; Z85.830 Personal history of malignant neoplasm of bone
CPT/HCPCS: 99284

== ENCOUNTER 2025-01-11 09:56 | Emergency (ER) | payer OTHER ==
--- OUTSIDE RECORDS SUMMARY | 2025-01-11 10:05 | XMS REPORT | Continuity of Care Document ---
Author Name Unknown Address [address] [facility]. [address] [place] [address] [facility] Address [address] [facility] [address] [place] [address] Care Team Providers Care Window Glazier Helper Name Role Phone Nicolle Bethea Primary Care Physician [phone] Josephine Levine MD Attending Clinician [phone] Nicolle Bethea Attending Clinician [phone] NICOLLE RONDON Attending Clinician Unavailable Doctor Unassigned, Hargill Attending Clinician U STELLA Oshea Attending Clinician Unavailable ADDIE AGUILERA Attending Clinician UnavailADDIE Rivas Attending Clinician UnavailAddie Rivas MD Attending Clinician [phone] Aston BERTRAND, Sandra Etienne Attending Clinician Unavail able STONE BRITT Attending Clinician Unavailable Pricila Davis MD Attending Clinician [phone] Emmanuel AL, Malick Attending Clinician Unavailable Chinyere Ascencio MD Attending Clinician [phone] Josafat Scott MD Attending Clinician [phone] Roland Nieves MD Attending Clinician [phone] Fern Moran MD Attending Clinician [phone] Mitchel AL, Stone Attending Clinician [phone] Radha AL, Jaida A Attending Clinician [phone] Rafael Crowder CRNA Attending Clinician [phone] Marbella Vale MD Attending Clinician [phone] Unknown, Attending Attending Clinician Unavailab shahana Patrick GRAPHIC DESIGN INTERNGregory Rojo Attending Clinician [phone] Nurse, [facility] Attending Clinician Un available GREGORY PATRICK Attending Clinician Unavailable Margaret AL, Casper Attending Clinician [phone] Robert Hernández CRNA Attending Clinician [phone] Visit, [facility] Nurse Attending Clinician Unavailable Pob, [facility] Main Attending Clinician Unavailabl e Lab, Ang - Db Attending Clinician Unavailable Bossman AL, Stella Attending Clinician [phone], [facility] Attending Clinician Unavailable DANIELA MCQUEEN Attending Clinician Unavail able Bossman AL, Stella Attending Clinician [phone] Nicolle Bethea Attending Clinician [phone] CICI LYNCH Attending Clinician Unavailable Doctor Unassigned, Hargill Attending Clinician U navailable Lab, Ang - Db Attending Clinician Unavailable ALISTAIR GARNER Attending Clinician Donna vailable Fern Mata Attending Clinician UnaRah Castillo Attending Clinician Unavailable [place] PTA Attending Clinician Unavail able Addie Aguilera MD Attending Clinician [phone] Po Cervantes PA-C Attending Clinician [phone] Irais Das PTA Attending Clinician Unav ailable Samara Cano PT Attending Clinician UnavailPO Muhammad Attending Clinician Unavailable Unknown, Attending Attending Clinician Unavailab Daniela Rm MD Attending Clinician Alyssa Kunz MD Attending Clinician [phone] Pepe BERTRAND, Kailyn Shields Attending Clinician Unavailab Felipe Del [facility]le P[facility] Assessment [facility] Attending ClinRah Carter MD Attending Clinician [phone] RAH JIANG Attending Clinician Unavailable Scooby Austin Attending Clinician Unavailable Pcp, Medicare Wellness [facility] Attending Clinicia jared Unavailable ALYSSA KUNZ Attending Clinician Unavailable Pcp-Lab Attending Clinician Unavailable Srikanth Rogers DO Attending Clinician DAYNA SINGLETON Attending Clinician Unavailable Alfonso Lucia DO Attending Clinician [phone] Dayna Singleton MD Attending Clinician [phone] Thea Unger MD Attending Clinician Tremayne Miller MD Attending Clinician [phone] JOSAFAT SCOTT Admitting Clinician Unavailable Josafat Scott MD Admitting Clinician [phone] ADDIE AGUILERA Admitting Clinician UnavailAddie Rivas MD Admitting Clinician [phone] Fern Mata Admitting Clinician Rah Toney Admitting Clinician Unavailable DANIELA MCQUEEN Admitting Clinician Unavail able Payers Payer Name Policy Type Policy Number Effective Date Expirati on Date Source Problems Condition Name Condition Details Condition Category Status Onset Date Resolution Date Last Treatment Date Treating Clinician Comments Source Obstructiv e lung disease Obstructiv e lung disease Disease Active 12-12 00:00: 00 [facility] Dyspnea, unspecifie d type Dyspnea, unspecifie d type Disease Active - 00:00: 00 [facility] Pathologic al fracture of left humerus due to neoplastic disease, initial encounter Pathologic al fracture of left humerus due to neoplastic disease, initial encounter Disease Active 11-17 00:00: 00 [facility] Preoperati ve testing Preoperati ve testing Disease Active 11-17 00:00: 00 [facility] Glossitis Glossitis Disease Active 11-14 00:00: 00 [facility] Nausea Nausea Disease Active 11-14 00:00: 00 [facility] Left arm pain Left arm pain Disease Active 11-14 00:00: 00 [facility] Anemia, unspecifie d type Anemia, unspecifie d type Disease Active 2023-09 00:00: 00 [facility] Acute nonintract able headache, unspecifie d headache type Acute nonintract able headache, unspecifie d headache type Disease Active 2023-09 00:00: 00 [facility] 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 Disease Active 03-14 00:00: 00 [facility] Elevated brain natriureti c peptide (BNP) level Elevated brain natriureti c peptide (BNP) level Disease Active 03-07 00:00: 00 [facility] Primary hypertensi on Primary hypertensi on Disease Active 03-07 00:00: 00 [facility] Leg edema Leg edema Disease Active 03-07 00:00: 00 [facility] Hypervolem ia, unspecifie d hypervolem ia type Hypervolem ia, unspecifie d hypervolem ia type Disease Active 03-07 00:00: 00 [facility] Albuminuri a Albuminuri a Disease Active 03-07 00:00: 00 [facility] Abnormal albumin Abnormal albumin Disease Active 03-07 00:00: 00 [facility] Iron deficiency anemia, unspecifie d iron deficiency anemia type Iron deficiency anemia, unspecifie d iron deficiency anemia type Disease Active 03-07 00:00: 00 [facility] Obesity (BMI 30-39.9) Obesity (BMI 30-39.9) Disease Active 03-07 00:00: 00 [facility] Breast cancer metastasiz ed to bone, unspecifie d laterality Breast cancer metastasiz ed to bone, unspecifie d laterality Disease Active 02-21 00:00: 00 [facility] Acute gastric ulcer with perforatio n Acute gastric ulcer with perforatio n Disease Active 2024-0 6-04 00:00: 00 [facility] Lower leg edema Lower leg edema Disease Active 6-04 00:00: 00 [facility] Skin lesion of face Skin lesion of face Disease Active 812 00:00: 00 [facility] Liver cyst Liver cyst Disease Active 02-06 00:00: 00 [facility] Hyperbilir ubinemia Hyperbilir ubinemia Disease Active 02-06 00:00: 00 [facility] Invasive ductal carcinoma of breast, stage I, right Invasive ductal carcinoma of breast, stage I, right Disease Active 2017-09 00:00: 00 [facility] Vitamin D deficiency Vitamin D deficiency Disease Active 01-04 00:00: 00 [facility] Essential hypertensi on Essential hypertensi on Disease Active 06-10 00:00: 00 [facility] Acquired hypothyroi dism Acquired hypothyroi dism Disease Active 06-10 00:00: 00 [facility] History of condyloma acuminatum History of condyloma acuminatum Disease Active 09-25 00:00: 00 [facility] History of cervical dysplasia History of cervical dysplasia Disease Active 09-25 00:00: 00 [facility] Urinary incontinen ce, unspecifie d incontinen ce type Urinary incontinen ce, unspecifie d incontinen ce type Disease Active 09-24 00:00: 00 [facility] Cystocele, midline Cystocele, midline Disease Active 09-24 00:00: 00 [facility] Invasive ductal carcinoma of breast, [...] of chemother apy: 02/10/2016 Chemother apy agent: [id number] tor Therapy: Anastrazo le, letrozole . Currently taking exemestan e. [facility] Observatio n after surgery Observatio n after surgery Disease Resolve d 215 00:00: 00 2017-06-10 00:00:00 2017-06-10 17:02:14 [facility] Screening for HPV (human papillomav irus) Screening for HPV (human papillomav irus) Disease Resolve d 09-25 00:00: 00 2017-06-10 00:00:00 2017-06-10 17:02:23 [facility] Elevated blood pressure reading without diagnosis of hypertensi on Elevated blood pressure reading without diagnosis of hypertensi on Disease Resolve d 09-25 00:00: 00 2017-06-10 00:00:00 2017-06-10 17:02:04 [facility] Encounter for routine gynecologi hallie examinatio n Encounter for routine gynecologi hallie examinatio n Disease Resolve d 09-24 00:00: 00 2017-06-10 00:00:00 2017-06-10 17:01:55 [facility] Thickened endometriu m Thickened endometriu m Disease Resolve d 09-24 00:00: 00 2017-06-10 00:00:00 2017-06-10 17:04:08 [facility] Postmenopa usal bleeding Postmenopa usal bleeding Disease Resolve d 09-24 00:00: 00 2017-06-10 00:00:00 2017-06-10 17:04:20 [facility] Endocervic al polyp Endocervic al polyp Disease Resolve d 09-24 00:00: 00 2017-06-10 00:00:00 2017-06-10 17:04:16 [facility] Allergies, Adverse Reactions, Alerts Allergy Name Allergy Type Status Severity Reaction(s) Onset Date Inactive Date Treating Clinician Comments Source TREE NUTS Food Active High ITCHING 3- 00:00: 00 [facility] Tree Nuts Food Allergy Active Itching 3 00:00: 00 Especiall y walnuts [facility] MELON DRUG INGREDI Active Other-Cmnt 4- 00:00: 00 [facility] Melon Drug Allergy Active Other - See comments 01-08 00:00: 00 "Itchy throat" [facility] codeine DA Active U NAUSEA 0 3- 00:00: 00 [facility] aspirin DA Active U NAUSEA 0 - 00:00: 00 [facility] cefdinir DA Active U NAUSEA 0 - 00:00: 00 [facility] morphine DA Active U NAUSEA 0 - 00:00: 00 [facility] No Known Allergie s DA Active U 0 - 00:00: 00 [facility] MORPHINE DRUG INGREDI Active N/V 04-11 00:00: 00 [facility] Morphine Propensi ty to adverse reaction s Active Nausea and/or Vomiting 04-11 00:00: 00 [facility] ASPIRIN DRUG INGREDI Active Other-Cmnt 2016-09 00:00: 00 [facility] Aspirin Propensi ty to adverse reaction s Active Other - See comments 2016-09 00:00: 00 [facility] Iodine And Iodide Containi ng Products Propensi ty to adverse reaction s Active Unknown - See comments 05-01 00:00: 00 Upsets her stomach [facility] CEFDINIR DRUG INGREDI Active Hives 05-01 00:00: 00 [facility] CODEINE DRUG INGREDI Active Unknown-Cmnt 05-01 00:00: 00 [facility] IODINE AND IODIDE CONTAINI NG PRODUCTS Drug Class Active Unknown-Cmnt 05-01 00:00: [address] [facility] Cefdinir Propensi ty to adverse reaction s Active Hives 05-01 00:00: [address] [facility] Iodine And Iodide Containi ng Products Propensi ty to adverse reaction s Active Unknown - See comments 05-01 00:00: 00 Upsets her stomach [facility] Codeine Propensi ty to adverse reaction s Active Unknown - See comments 05-01 00:00: [address] [facility] Family History Family Member Diagnosis Comments Start Date Stop Date Sourc e Natural father Heart Unive [facility] Maternal grandfather Heart [facility] Natural mother Kidney disease [facility] Other Breast Cancer Un[facility] Paternal aunt [facility] Paternal grandmother Breast Cancer [facility] Paternal grandmother Cancer [facility] Natural sister Other - see comments [facility] Natural sister Cancer Unive [facility] Social History Social Habit Start Date Stop Date Quantity Comments Source ASSERTION Not [facility] History of Occupation [facility] History SDOH Alcohol Frequency [facility] History SDOH Alcohol Std Drinks [facility] History SDOH Alcohol Binge [facility] Gender identity [facility] History of Social function 2024-12-19 00:00:00 2024-12-19 00:00:00 [facility] Alcoholic beverage intake 2024-12-19 00:00:00 2024-12-19 00:00:00 0 /d [facility] Tobacco use and exposure 2024-12-03 00:00:00 2024-12-03 00:00:00 Smokeless tobacco non-user [facility] Alcohol intake 2023-04-30 00:00:00 2023-04-30 00:00:00 0 /d [facility] Exposure to SARS-CoV-2 (event) 2022-05-24 00:00:00 2022-06-03 13:15:00 Not sure [facility] Alcohol Comment 2015-05-07 00:00:00 2015-05-07 00:00:00 drank for 4-5 years, quit 1987 [facility] Sex assigned at 1950 00:00:00 1950 00:00:00 [facility] Smoking Status Start Date Stop Date Source Never smoked tobacco [facility] Medications Ordered Medication Name Filled Medication Name Start Date Stop Date Current Medication? Ordering Clinician Indication Dosage Frequency Signature (SIG) Comments Components Source gabapentin 100 mg capsule 12-22 00:00: 00 Yes [id number] 200mg Take 2 capsules by mouth 3 (three) times daily as needed for Pain (scale 4-6). [facility] traMADoL (ULTRAM) tablet 50 mg 12-12 05:00: 00 12-12 21:08 :48 No 50mg 50 mg, Oral, Q6H, First dose (after last modificati on) on Wed12/12/24 at 0000, Until Discontinu ed, Routine [facility] gabapentin (NEURONTIN) capsule 200 mg 12-12 01:00: 00 12-12 21:08 :48 No 200mg 200 mg, Oral, BID, First dose (after last modificati on) on Wed12/11/24 at 2000, Until Discontinu ed, Routine [facility] Nebulizer & Compressor For Neb Hazel 12-12 00:00: 00 Yes [id number] Use as directed [facility] budesonide 0.5 mg/2 mL nebulizer solution 12-12 00:00: 00 01-12 04:59 :00 Yes [id number] .5mg Inhale 2 mL in the morning for 30 days. [facility] ipratropium 0.02 % nebulizer solution 12-12 00:00: 00 01-12 04:59 :00 Yes [id number] .5mg Inhale 2.5 mL every 6 (six) hours as needed for Wheezing or Shortness of Breath for up to 30 days. [facility] albuterol 2.5 mg /3 mL (0.083 %) nebulizer solution 12-12 00:00: 00 01-12 04:59 :00 Yes [id number] 2.5mg Inhale 3 mL every 4 (four) hours as needed for Wheezing or Shortness of Breath for up to 30 days. [facility] naloxone (NARCAN) injection 0.4 mg 12-11 15:43: 59 12-12 21:08 :48 No .4mg 0.4 mg, Slow IV Push, PRN, Starting on 12/11/24 at 1043, Until 12/12/24 at 1608, Routine, Sedation/R espiratory Depression [facility] furosemide 40 mg tablet 12-11 00:00: 00 01-11 04:59 :00 Yes [id number] 40mg Take 1 tablet by mouth in the morning for 30 days. [facility] pantoprazol e 40 mg EC tablet 12-11 00:00: 00 01-11 04:59 :00 Yes [id number] 40mg Take 1 tablet by mouth in the morning and 1 tablet in the evening. Do all this for 30 days. [facility] traMADoL (ULTRAM) tablet 50 mg 12-10 15:47: 15 12-11 23:58 :26 No 50mg 50 mg, Oral, Q6HPRN, Starting on Wed12/10/24 at 1047, Until 12/11/24 at 1858, Routine, pain scale 4-10 [facility] Lidocaine (LIDOCARE) 4 % patch 1 Patch 12-10 14:00: 00 12-12 21:08 :48 No 1{patch } 1 Patch, Topical, Administer over 12 Hours, DAILY, First dose on Wed12/10/24 at 0900, Until Discontinu ed, Routine [facility] KCL (KLOR-CON M20) tablet 40 mEq 12-09 15:00: 00 12-09 18:25 :00 No 40meq 40 mEq, Oral, ONCE, 1 dose, On 12/09/24 at 1000, Routine [facility] lidocaine-e pinephrine (XYLOCAINE W/EPINEPHRI NE) 2 %-1:200,000 injection 12-08 17:50: 00 12-08 17:50 :00 No PRN, Starting on Wed12/08/24 at 1250, Until Wed12/08/24 at 1250, Routine, Intra-op [facility] ondansetron (ZOFRAN (PF)) injection 12-08 17:30: 00 12-08 17:30 :00 No Slow IV Push, PRN, Starting on Wed12/08/24 at 1230, Until Wed12/08/24 at 1230, Administer over 2-5 Minutes, Intra-op [facility] fentanyl PF (SUBLIMAZE (PF)) injection 12-08 17:22: 00 12-08 18:09 :23 No Slow IV Push, PRN, Starting on Wed12/08/24 at 1222, Until Wed12/08/24 at 1309, Routine, Intra-op [facility] pantoprazol e (PROTONIX) injection 40 mg 12-07 19:00: 00 12-12 21:08 :48 No 40mg 40 mg, Slow IV Push, Q12H, First dose on Wed12/07/24 at 1400, Until Discontinu ed, Routine [facility] furosemide (LASIX) tablet 40 mg 12-06 15:15: 00 Yes 40mg 40 mg, Oral, DAILY, First dose on Wed12/06/24 at 1015, Until Discontinu ed, Routine [facility] levoFLOXaci n (LEVAQUIN) tablet 750 mg 12-06 14:00: 00 12-08 16:37 :00 No 750mg 750 mg, Oral, Q24H ABX, 3 doses, First dose on Wed12/06/24 at 0900, Last dose on Wed12/08/24 at 0900, ROSA, Reason for Anti-Infec tive: Documented Infection, Documented Infection Site: Respirator y, Duration of Therapy: Other (see Comments) [facility] ipratropium -albuteroL (DUONEB) 0.5 mg-3 mg(2.5 mg base)/3 mL nebulizer solution 3 mL 12-06 01:00: 00 12-12 21:08 :48 No 3mL 3 mL, Inhalation , BID, First dose (after last modificati on) on Wed12/05/24 at 1999, Until Discontinu ed, Routine [facility] pantoprazol e (PROTONIX) EC tablet 40 mg 12-06 01:00: 00 12-07 18:49 :55 No 40mg 40 mg, Oral, BID, First dose on Wed12/05/24 at 1999, Until Discontinu ed, Routine [facility] iopamidol (ISOVUE 370-500 mL) injection 100 mL 12-05 15:00: 00 12-05 13:50 :00 No [id number] 100mL 100 mL, Intravenou s, ONCE, 1 dose, On Wed12/05/24 at 1000, Routine [facility] furosemide (LASIX) injection 40 mg 12-05 14:00: 00 12-05 18:11 :27 No 40mg 40 mg, Slow IV Push, DAILY, First dose (after last modificati on) on Wed12/05/24 at 0900, Until Discontinu ed, Routine [facility] budesonide (PULMICORT RESPULE) nebulizer solution 0.5 mg 12-05 01:00: 00 12-12 21:08 :48 No .5mg 0.5 mg, Inhalation , BID, First dose on Wed12/04/24 at 2000, Until Discontinu ed, Routine [facility] pantoprazol e (PROTONIX) injection 40 mg 12-04 20:30: 00 12-05 16:17 :15 No 40mg 40 mg, Slow IV Push, Q12H, First dose on Wed12/04/24 at 1530, Until Discontinu ed, Routine [facility] lidocaine-e pinephrine (XYLOCAINE W/EPINEPHRI NE) 1 %-1:200,000 injection 12-04 19:05: 22 12-04 19:05 :22 No PRN, Starting on Wed12/04/24 at 1405, Until Wed12/04/24 at 1405, Routine, Intra-op [facility] cholecalcif sly (vitamin D3) tablet 1,000 Units 12-04 14:00: 00 12-12 21:08 :48 No 1000U 1,000 Units, Oral, DAILY, First dose on Wed12/04/24 at 0900, Until Discontinu ed [facility] sennosides- docusate sodium (SENOKOT-S) 8.6-50 mg per tablet 1 tablet 12-04 14:00: 00 12-12 21:08 :48 No 1{tbl} 1 tablet, Oral, DAILY, First dose on Wed12/04/24 at 0900, Until Discontinu ed, Routine [facility] methylPREDN ISolone sod succ (SOLU-MEDRO L (PF)) injection 80 mg 12-04 13:15: 00 12-04 16:27 :18 No 80mg 80 mg, Intravenou s, Q8H, First dose on Wed12/04/24 at 0815, Until Discontinu ed, Routine [facility] furosemide (LASIX) injection 40 mg 12-04 13:15: 00 12-04 20:50 :21 No 40mg 40 mg, Slow IV Push, Q12H, First dose on Wed12/04/24 at 0815, Until Discontinu ed, Routine [facility] ferrous sulfate tablet 325 mg 12-04 13:00: 00 12-04 20:49 :36 No 325mg 325 mg, Oral, TID MEALS, First dose on Wed12/04/24 at 0800, Until Discontinu ed, Routine [facility] heparin (porcine) injection 5,000 Units 12-04 13:00: 00 12-04 20:22 :56 No 5000U 5,000 Units, Subcutaneo us, Q12H, First dose on Wed12/04/24 at 0800, Until Discontinu ed, Routine [facility] levothyroxi ne (SYNTHROID) tablet 75 mcg 12-04 11:00: 00 12-12 21:08 :48 No 75ug 75 mcg, Oral, QAM-0600, First dose on Wed12/04/24 at 0600, Until Discontinu ed, Routine [facility] ipratropium -albuteroL (DUONEB) 0.5 mg-3 mg(2.5 mg base)/3 mL nebulizer solution 3 mL 12-04 09:00: 00 12-05 14:27 :45 No 3mL 3 mL, Inhalation , Q4H, First dose on Wed12/04/24 at 0400, Until Discontinu ed, Routine [facility] labetaloL (NORMODYNE) 5 mg/mL injection 10 mg 12-04 06:00: 37 12-12 21:08 :48 No 10mg 10 mg, Slow IV Push, Q6HPRN, Starting on Wed12/04/24 at 0100, Until Wed12/12/24 at 1608, Routine, SBP >160, Hold for HR <60 [facility] hydralAZINE (APRESOLINE ) injection 10 mg 12-04 06:00: 32 12-12 21:08 :48 No 10mg 10 mg, Slow IV Push, Q6HPRN, Starting on Wed12/04/24 at 0100, Until Wed12/12/24 at 1608, Routine, DBP=>100; SBP=>160 [facility] traMADoL (ULTRAM) tablet 50 mg 12-04 05:54: 25 12-10 15:47 :44 No 50mg 50 mg, Oral, Q6HPRN, Starting on Wed12/04/24 at 0054, Until Wed12/10/24 at 1047, Routine, Pain (scale 7-10) [facility] NaCl 0.9% (NS) IV infusion 1,000 mL 12-04 05:45: 00 12-04 13:07 :22 No 1000mL at 125 mL/hr, IV Infusion, CONTINUOUS , Starting on Wed12/04/24 at 0045, Until Wed12/04/24 at 0807, Routine [facility] melatonin (MELATIN) tablet 6 mg 12-04 05:37: 12 12-12 21:08 :48 No 6mg 6 mg, Oral, QHSPRN, Starting on Wed12/04/24 at 0037, Until Wed12/12/24 at 1608, Routine, Insomnia [facility] LORazepam (ATIVAN) tablet 0.5 mg 12-04 05:36: 38 12-12 21:08 :48 No .5mg 0.5 mg, Oral, PRN, Starting on Wed12/04/24 at 0036, Until Wed12/12/24 at 1608, Routine, Anxiety [facility] gabapentin (NEURONTIN) capsule 100 mg 12-04 05:35: 56 12-11 23:58 :26 No 100mg 100 mg, Oral, BIDPRN, Starting on Wed12/04/24 at 0035, Until Wed12/11/24 at 1858, Routine, Pain (scale 4-6) [facility] albuterol (VENTOLIN) inhaler 2 Puff 12-04 05:35: 33 12-12 21:08 :48 No 2{puff} [facility] levoFLOXaci n in D5W (LEVAQUIN) 750 mg/150 mL Piggyback 750 mg 12-04 05:30: 00 12-05 16:17 :15 No 750mg 750 mg, IV Piggyback, at 100 mL/hr Administer over 90 Minutes, Q24H ABX, 5 doses, First dose on Wed12/04/24 at 0045, Last dose on Wed12/08/24 at 0045, ROSA, Reason for Anti-Infec tive: Documented Infection, Documented Infection Site: Respirator y, Duration of Therapy: Other (see Comments) [facility] ondansetron (ZOFRAN (PF)) injection 4 mg 12-04 05:27: 09 12-12 21:08 :48 No 4mg 4 mg, Slow IV Push, Q6HPRN, Starting on Wed12/04/24 at 0027, Until Wed12/12/24 at 1608, Administer over 2-5 Minutes, 2 mL [facility] acetaminoph en (TYLENOL) tablet 650 mg 12-04 05:26: 52 12-12 21:08 :48 No 650mg 650 mg, Oral, Q6HPRN, Starting on Wed12/04/24 at 0026, Until Wed12/12/24 at 1608, Routine, Pain (scale 1-3) [facility] pantoprazol e (PROTONIX) injection 40 mg 12-04 03:15: 00 12-04 02:34 :00 No 40mg 40 mg, Slow IV Push, ONCE, 1 dose, On Wed12/03/24 at 2215, [facility] isolone sod succ (SOLU-MEDRO L) injection 125 mg 12-03 23:30: 00 12-04 00:08 :00 No 125mg 125 mg, Slow IV Push, ONCE NOW, 1 dose, On Wed12/03/24 at 1830, [facility] ipratropium -albuteroL (DUONEB) 0.5 mg-3 mg(2.5 mg base)/3 mL nebulizer solution 3 mL 12-03 23:30: 00 12-03 22:44 :00 No 3mL 3 mL, Inhalation , ONCE, 1 dose, On Wed12/03/24 at 1830, ROSA [facility] traMADoL (ULTRAM) tablet 50 mg 12-03 22:30: 00 12-03 22:27 :00 No 50mg 50 mg, Oral, Once, 1 dose, On Wed12/03/24 at 1730, Routine [facility] gabapentin (NEURONTIN) capsule 200 mg 12-03 22:30: 00 12-03 22:27 :00 No 200mg 200 mg, Oral, ONCE, 1 dose, On Wed12/03/24 at 1730, Routine [facility] ipratropium -albuteroL (DUONEB) 0.5 mg-3 mg(2.5 mg base)/3 mL nebulizer solution 3 mL 11-21 22:00: 00 11-22 00:16 :55 No 3mL 3 mL, Inhalation , QID, First dose on Wed11/21/24 at 1600, Until Discontinu ed, Routine [facility] racEPINEPHr ine (S2 RACEMIC) 2.25 % nebulizer solution 0.5 mL 11-21 21:30: 00 11-21 20:40 :00 No .5mL 0.5 mL, Inhalation , ONCE, 1 dose, On Wed11/21/24 at 1530, [facility] 11-21 18:37: 00 11-21 18:50 :11 No IV Push, ONCE INTRA PROCEDURE, Starting on Wed11/21/24 at 1237, Until Wed11/21/24 at 1250, Routine, [facility] tranexamic [facility] (CYKLOKAPRO N) 1,000 mg/10 mL (100 mg/mL) injection 11-21 18:35: 00 11-21 18:50 :11 No Inhalation , Administer over 15 Minutes, ONCE INTRA PROCEDURE, Starting on Wed11/21/24 at 1235, Until Wed11/21/24 at 1250, Routine, Intra-op [facility] ketorolac (TORADOL) injection 11-21 18:32: 00 11-21 18:50 :11 No Slow IV Push, ONCE INTRA PROCEDURE, Starting on Wed11/21/24 at 1232, Until Wed11/21/24 at 1250, Routine, [facility] sodium chloride 0.9 % irrigation solution 11-21 17:59: 00 11-21 18:54 :47 No PRN, Starting on 3/4/25 at 1159, Until 11/21/24 at 1254, Intra-op [facility] ondansetron (ZOFRAN (PF)) injection 11-21 17:49: 00 11-21 18:50 :11 No Slow IV Push, ONCE INTRA PROCEDURE, Starting on 11/21/24 at 1149, Until 11/21/24 at 1250, Administer over 2-5 Minutes, Intra-op [facility] dexamethaso ne (DECADRON PHOSPHATE) 4 mg/mL injection 11-21 17:37: 00 11-21 18:50 :11 No IV Push, ONCE INTRA PROCEDURE, Starting on 11/21/24 at 1137, Until 11/21/24 at 1250, Routine, Intra-op [facility] ceFAZolin (ANCEF) injection 11-21 17:34: 00 11-21 18:50 :11 No Intravenou s, ONCE INTRA PROCEDURE, Starting on 11/21/24 at 1134, Until 11/21/24 at 1250, ROS[facility], [facility] rocur[facility] (ZEMURON) injection 11-21 17:27: 00 11-21 18:50 :11 No IV Push, ONCE INTRA PROCEDURE, Starting on 11/21/24 at 1127, Until 11/21/24 at 1250, Routine, Intra-op [facility] propofoL IV infusion 11-21 17:27: 00 11-21 18:50 :11 No Intravenou s, ONCE INTRA PROCEDURE, Starting on 11/21/24 at 1127, Intra-op Univers [facility] lidocaine 1% (XYLOCAINE) 100 mg/10 mL (1 %) injection 11-21 17:27: 00 11-21 18:50 :11 No Intravenou s, ONCE INTRA PROCEDURE, Starting on 11/21/24 at 1127, Until 11/21/24 at 1250, Routine, Intra-op [facility] FENTanyl (PF) (SUBLIMAZE) injection 11-21 17:27: 00 11-21 18:50 :11 No Intravenou s, ONCE INTRA PROCEDURE, Starting on Wed11/21/24 at 1127, Until Wed11/21/24 at 1250, Routine, Intra-op Univers [facility] bupivacaine (preserv free) (SENSORCAIN E MPF) 0.25 % (2.5 mg/mL) injection 11-21 17:18: 00 11-21 18:50 :11 No Caudal Block, ONCE INTRA PROCEDURE, Starting on Wed11/21/24 at 1118, Until Wed11/21/24 at 1250, Routine, Intra-op [facility] lactated ringers IV infusion 11-21 17:18: 00 11-21 18:50 :11 No IV Infusion, CONTINUOUS PRN, Starting on Wed11/21/24 at 1118, Until Wed11/21/24 at 1250, Routine, Intra-op [facility] traMADoL 50 mg tablet 11-21 10:10: 48 Yes 50mg Take 1 tablet by mouth every 8 (eight) hours as needed. [facility] naproxen sodium (ALEVE) 220 mg tablet 11-21 10:10: 48 12-10 00:00 :00 No 220mg Take 1 tablet by mouth in the morning and 1 tablet in the evening. Take with meals. [facility] vancomycin placeholder : dosing by provider 11-21 06:00: 00 12-12 14:50 :11 No [facility] HYDROcodone -acetaminop hen 10-325 mg tablet 11-21 00:00: 00 11-29 04:59 :00 No [id number] 1{tbl} Take 1 tablet by mouth every 6 (six) hours as needed for Pain (scale 4-6) or Pain (scale 7-10) for up to 7 days. Indication s: acute pain [facility] traMADoL 50 mg tablet 11-21 00:00: 00 11-29 04:59 :00 No [id number] 50mg Take 1 tablet by mouth every 6 (six) hours as needed for Pain (scale 1-3) for up to 7 days. Indication s: acute pain [facility] levothyroxi ne 75 mcg tablet 11-15 00:00: 00 Yes [id number] 75ug Take 1 tablet by mouth every morning. [facility] ondansetron 4 mg disintegrat ing tablet 11-14 00:00: 00 Yes [id number] 4mg Take 1 tablet by mouth every 8 (eight) hours as needed for Nausea and Vomiting (N/V). [facility] gabapentin 100 mg capsule 11-09 00:00: 00 12-22 00:00 :00 No [id number] 100mg Take 1 capsule by mouth 2 (two) times daily as needed for Pain (scale 4-6). [facility] furosemide (LASIX) 20 mg tablet 2023-09 00:00: 00 12-10 00:00 :00 No [id number] 4101 20mg Take 1 tablet by mouth in the morning. [facility] levothyroxi ne 75 mcg tablet 2023-09 00:00: 00 11-15 00:00 :00 No [id number] 75ug Take 1 tablet by mouth every morning. [facility] gabapentin 100 mg capsule 2023-09 00:00: 00 11-09 00:00 :00 No [id number] 100mg Take 1 capsule by mouth 2 (two) times daily as needed for Pain (scale 4-6). [facility] LEVOTHYROXI NE 50 mcg tablet 2023-09 1- 00:00: 00 11-15 00:00 :00 No [id number] 50ug TAKE 1 TABLET BY MOUTH EVERY MORNING. ON EMPTY STOMACH. [facility] levothyroxi ne 50 mcg tablet 2023-09 0-18 00:00: 00 08-04 00:00 :00 No [id number] 50ug Take 1 tablet by mouth every morning. On empty stomach. [facility] furosemide (LASIX) 20 mg tablet 2023-09 00:00: 00 08-22 00:00 :00 No [id number] 20mg Take 1 tablet by mouth every morning and evening. [facility] spironolact one 25 mg tablet 2023-09 00:00: 00 08-22 00:00 :00 No [id number] 25mg Take 1 tablet by mouth in the morning. [facility] spironolact one 25 mg tablet 04-13 00:00: 00 07-06 00:00 :00 No [id number] 4101 25mg Take 1 tablet by mouth in the morning. [facility] DULOXETINE 20 mg capsule 04-07 00:00: 00 08-14 00:00 :00 No [id number] 20mg TAKE 1 CAPSULE BY MOUTH EVERYDAY AT BEDTIME [facility] furosemide (LASIX) 20 mg tablet 03-22 00:00: 00 07-06 00:00 :00 No [id number] 20mg Take 1 tablet by mouth every morning and evening. [facility] spironolact one 25 mg tablet 03-22 00:00: 00 04-13 00:00 :00 No [id number] 4101 25mg Take 1 tablet by mouth in the morning. [facility] albuterol (PROAIR HFA) 90 mcg/actuati on inhaler 03-14 00:00: 00 Yes [id number] 2{puff} Inhale 2 Puffs every 6 (six) hours as needed for Wheezing or Shortness of Breath. [facility] LORazepam (ATIVAN) 0.5 mg tablet 03-14 00:00: 00 Yes [id number] .5mg Take 1 tablet by mouth as needed for Anxiety. [facility] DULoxetine 20 mg capsule 03-14 00:00: 00 04-07 00:00 :00 No [id number] 20mg Take 1 capsule by mouth at bedtime. [facility] losartan 25 mg tablet 03-07 15:59: 09 03-07 00:00 :00 No [facility] hydrALAZINE 10 mg tablet 03-07 15:59: 03 03-07 00:00 :00 No [facility] melatonin 3 mg Cap 03-07 15:44: 35 Yes 3mg Take 3 mg by mouth in the morning. [facility] ferrous sulfate (IRON) 325 mg (65 mg iron) tablet 03-07 15:41: 25 Yes 325mg Take 1 tablet by mouth in the morning and 1 tablet at noon and 1 tablet in the evening. Take with meals. [facility] multivit with iron,minera ls (MULTIVITAM IN AND MINERALS ORAL) 03-07 15:40: 55 Yes Take by mouth daily. [facility] Cranberry 500 mg Cap 03-07 15:40: 55 Yes 500mg Take 500 mg by mouth in the morning. [facility] furosemide (LASIX) 20 mg tablet 03-07 00:00: 00 03-22 00:00 :00 No [id number] 20mg Take 1 tablet by mouth every morning and evening. [facility] spironolact one 25 mg tablet 03-07 00:00: 00 03-22 00:00 :00 No [id number] 25mg Take 1 tablet by mouth in the morning. [facility] losartan 25 mg tablet 02-21 13:17: 57 Yes [facility] hydrALAZINE 10 mg tablet 02-21 13:17: 56 Yes [facility] inhalat.spa cing dev,large mask (PURE COMFORT SPACER-ADUL T MASK) [facility] 02-21 00:00: 00 Yes [id number] 1U 1 Units every 4 (four) hours as needed (wheezing) . Inhaler spacer [facility] inhalat.spa cing dev,large mask (PURE COMFORT SPACER-ADUL T MASK) [facility] 02-21 00:00: 00 Yes [id number] 1U 1 Units every 4 (four) hours as needed (wheezing) . Inhaler spacer [facility] mupirocin 2 % ointment 02-21 00:00: 00 03-08 04:59 :00 No [id number] Apply to area(s) 3 (three) times daily for 14 days. [facility] furosemide (LASIX) 20 mg tablet 02-21 00:00: 00 03-07 00:00 :00 No [id number] 20mg Take 1 tablet by mouth in the morning. [facility] ondansetron 4 mg tablet 02-14 00:00: 00 Yes [facility] ELIQUIS 2.5 mg tablet 02-14 00:00: 00 08-14 00:00 :00 No 2.5mg Take 1 tablet by mouth in the morning and 1 tablet in the evening. [facility] DULoxetine 20 mg capsule 02-14 00:00: 00 03-14 00:00 :00 No 20mg Take 1 capsule by mouth at bedtime. [facility] amLODIPine 10 mg tablet 01-08 00:00: 00 03-07 00:00 :00 No AT BEDTIME [facility] carvediloL 3.125 mg tablet 01-08 00:00: 00 03-07 00:00 :00 No TWICE DAILY WITH MEALS [facility] albuterol (VENTOLIN) inhaler 2 Puff 2022-09 20:00: 00 07-20 19:17 :00 No [id number] 2{puff} [facility] albuterol 90 mcg/actuati on inhaler 2022-09 00:00: 00 Yes [id number] 2{puff} Inhale 2 Puffs every 6 (six) hours as needed for Shortness of Breath. [facility] LEVOTHYROXI NE 50 mcg tablet 01-30 00:00: 00 07-07 00:00 :00 No [id number] 50ug TAKE 1 TABLET BY MOUTH EVERY MORNING. ON EMPTY STOMACH. [facility] HYDROCHLORO THIAZIDE 25 mg tablet 5-13 00:00: 00 03-07 00:00 :00 No [id number] TAKE 1 TABLET BY MOUTH EVERY DAY [facility] multivit with iron,minera ls (MULTIVITAM IN AND MINERALS ORAL) 01-03 11:29: 15 Yes Take by mouth daily. [facility] levothyroxi ne 50 mcg tablet 4- 00:00: 00 01-30 00:00 :00 No [id number] 50ug Take 1 tablet by mouth every morning. On empty stomach. [facility] hydroCHLORO thiazide 25 mg tablet 12-20 00:00: 00 01-30 00:00 :00 No [id number] 25mg Take 1 tablet by mouth daily. [facility] HYDROCHLORO THIAZIDE 25 mg tablet 3-04 00:00: 00 12-20 00:00 :00 No [id number] TAKE 1 TABLET BY MOUTH EVERY DAY [facility] levothyroxi ne 50 mcg tablet 2019-09 2-10 00:00: 00 12-11 00:00 :00 No [id number] 50ug Take 1 tablet by mouth every morning. On empty stomach. [facility] albuterol (PROAIR HFA) 90 mcg/actuati on inhaler 2019-09 0 00:00: 00 03-14 00:00 :00 No [id number] 2{puff} Inhale 2 Puffs every 6 (six) hours as needed for Wheezing or Shortness of Breath. [facility] Cholecalcif sly, Vitamin D3, (VITAMIN D3) 2,000 unit capsule 2016-09 0 00:00: 00 Yes [id number] 2000U Take 1 capsule by mouth in the morning. [facility] Vital Signs Vital Name Observation Time Observation Value Comments Kadi elkins Systolic blood pressure 2024-12-19 16:41:00 103 mm[Hg] [facility] Diastolic blood pressure 2024-12-19 16:41:00 68 mm[Hg] [facility] Heart rate 2024-12-19 16:41:00 78 /min [facility] Body temperature 2024-12-19 16:41:00 36.5 [place] [facility] Body height 2024-12-19 16:41:00 160 cm [facility] Body weight 2024-12-19 16:41:00 69.4 kg [facility] BMI 2024-12-19 16:41:00 27.10 kg/m2 [facility] Oxygen saturation in Arterial blood by Pulse oximetry 2024-12-19 16:41:00 96 /min [facility] Systolic blood pressure 2024-12-12 16:14:00 133 mm[Hg] [facility] Diastolic blood pressure 2024-12-12 16:14:00 77 mm[Hg] [facility] Heart rate 2024-12-12 16:14:00 110 /min [facility] Body temperature 2024-12-12 16:14:00 36.61 [place] [facility] Respiratory rate 2024-12-12 16:14:00 18 /min [facility] Oxygen saturation in Arterial blood by Pulse oximetry 2024-12-12 16:14:00 94 /min [facility] Body weight 2024-12-12 09:00:00 65 kg [facility] BMI 2024-12-12 09:00:00 25.38 kg/m2 [facility] Body height 2024-12-08 17:18:00 160 cm [facility] Heart rate 2024-11-21 21:07:00 98 /min [facility] Respiratory rate 2024-11-21 21:07:00 16 /min [facility] Oxygen saturation in Arterial blood by Pulse oximetry 2024-11-21 21:07:00 90 /min [facility] Systolic blood pressure 2024-11-21 21:05:00 136 mm[Hg] [facility] Diastolic blood pressure 2024-11-21 21:05:00 61 mm[Hg] [facility] Body temperature 2024-11-21 18:56:00 36.56 [place] [facility] Systolic blood pressure 2024-11-21 21:05:00 136 mm[Hg] [facility] Diastolic blood pressure 2024-11-21 21:05:00 61 mm[Hg] [facility] Heart rate 2024-11-21 21:05:00 97 /min [facility] Respiratory rate 2024-11-21 21:05:00 17 /min [facility] Oxygen saturation in Arterial blood by Pulse oximetry 2024-11-21 21:05:00 90 /min [facility] Body temperature 2024-11-21 18:56:00 36.56 [place] [facility] Respiratory rate 2024-11-21 18:41:00 25 /min [facility] Systolic blood pressure 2024-11-17 14:25:00 149 mm[Hg] pt reports that she did not take BP med this morning [facility] Diastolic blood pressure 2024-11-17 14:25:00 74 mm[Hg] pt reports that she did not take BP med this morning [facility] Heart rate 2024-11-17 14:24:00 91 /min [facility] Body temperature 2024-11-17 14:24:00 36.78 [place] [facility] Body height 2024-11-17 14:24:00 160 cm [facility] Body weight 2024-11-17 14:24:00 69.4 kg [facility] BMI 2024-11-17 14:24:00 27.10 kg/m2 [facility] Oxygen saturation in Arterial blood by Pulse oximetry 2024-11-17 14:24:00 92 /min [facility] Systolic blood pressure 2024-11-14 19:37:00 154 mm[Hg] [facility] Diastolic blood pressure 2024-11-14 19:37:00 82 mm[Hg] [facility] Heart rate 2024-11-14 19:36:00 109 /min [facility] Body temperature 2024-11-14 19:36:00 36.94 [place] [facility] Respiratory rate 2024-11-14 19:36:00 18 /min [facility] Body height 2024-11-14 19:36:00 160 cm [facility] Body weight 2024-11-14 19:36:00 69.582 kg [facility] BMI 2024-11-14 19:36:00 27.17 kg/m2 [facility] Oxygen saturation in Arterial blood by Pulse oximetry 2024-11-14 19:36:00 96 /min [facility] Systolic blood pressure 2024-08-22 19:17:00 147 mm[Hg] [facility] Diastolic blood pressure 2024-08-22 19:17:00 57 mm[Hg] [facility] Heart rate 2024-08-22 19:17:00 57 /min [facility] Body temperature 2024-08-22 19:17:00 36.67 [place] [facility] Respiratory rate 2024-08-22 19:17:00 15 /min [facility] Body height 2024-08-22 19:17:00 160 cm per pt [facility] Body weight 2024-08-22 19:17:00 71.94 kg [facility] BMI 2024-08-22 19:17:00 28.09 kg/m2 [facility] Oxygen saturation in Arterial blood by Pulse oximetry 2024-08-22 19:17:00 95 /min [facility] Systolic blood pressure 2024-08-14 19:32:00 134 mm[Hg] [facility] Diastolic blood pressure 2024-08-14 19:32:00 68 mm[Hg] [facility] Heart rate 2024-08-14 19:22:00 66 /min [facility] Body temperature 2024-08-14 19:22:00 37.06 [place] [facility] Body height 2024-08-14 19:22:00 160 cm [facility] Body weight 2024-08-14 19:22:00 70.534 kg [facility] BMI 2024-08-14 19:22:00 27.55 kg/m2 [facility] Oxygen saturation in Arterial blood by Pulse oximetry 2024-08-14 19:22:00 96 /min [facility] Systolic blood pressure 2024-05-23 18:27:00 130 mm[Hg] [facility] Diastolic blood pressure 2024-05-23 18:27:00 75 mm[Hg] [facility] Heart rate 2024-05-23 18:27:00 73 /min [facility] Oxygen saturation in Arterial blood by Pulse oximetry 2024-05-23 18:27:00 99 /min [facility] Body height 2024-05-23 18:22:00 160 cm [facility] Body weight 2024-05-23 18:22:00 70.988 kg [facility] BMI 2024-05-23 18:22:00 27.72 kg/m2 [facility] Systolic blood pressure 2024-05-12 18:13:00 134 mm[Hg] [facility] Diastolic blood pressure 2024-05-12 18:13:00 79 mm[Hg] [facility] Heart rate 2024-05-12 18:13:00 75 /min [facility] Body temperature 2024-05-12 18:13:00 36.83 [place] [facility] Respiratory rate 2024-05-12 18:13:00 18 /min [facility] Body height 2024-05-12 18:13:00 160 cm [facility] Body weight 2024-05-12 18:13:00 70.988 kg [facility] BMI 2024-05-12 18:13:00 27.72 kg/m2 [facility] Oxygen saturation in Arterial blood by Pulse oximetry 2024-05-12 18:13:00 95 /min [facility] Systolic blood pressure 2024-03-22 19:31:00 136 mm[Hg] [facility] Diastolic blood pressure 2024-03-22 19:31:00 61 mm[Hg] [facility] Heart rate 2024-03-22 19:31:00 68 /min [facility] Body temperature 2024-03-22 19:31:00 37.11 [place] [facility] Respiratory rate 2024-03-22 19:31:00 19 /min [facility] Body height 2024-03-22 19:31:00 160 cm [facility] Body weight 2024-03-22 19:31:00 73.936 kg [facility] BMI 2024-03-22 19:31:00 28.87 kg/m2 [facility] Oxygen saturation in Arterial blood by Pulse oximetry 2024-03-22 19:31:00 94 /min [facility] Systolic blood pressure 2024-03-14 18:04:00 159 mm[Hg] [facility] Diastolic blood pressure 2024-03-14 18:04:00 89 mm[Hg] [facility] Heart rate 2024-03-14 18:03:00 74 /min [facility] Body height 2024-03-14 18:03:00 160 cm [facility] Body weight 2024-03-14 18:03:00 73.12 kg [facility] BMI 2024-03-14 18:03:00 28.56 kg/m2 [facility] Oxygen saturation in Arterial blood by Pulse oximetry 2024-03-14 18:03:00 98 /min [facility] Systolic blood pressure 2024-03-07 20:44:00 159 mm[Hg] [facility] Diastolic blood pressure 2024-03-07 20:44:00 89 mm[Hg] [facility] Heart rate 2024-03-07 20:44:00 94 /min [facility] Oxygen saturation in Arterial blood by Pulse oximetry 2024-03-07 20:44:00 96 /min [facility] Respiratory rate 2024-03-07 20:38:00 18 /min [facility] Body height 2024-03-07 20:38:00 160 cm [facility] Body weight 2024-03-07 20:38:00 83.235 kg [facility] BMI 2024-03-07 20:38:00 32.51 kg/m2 [facility] Systolic blood pressure 2024-02-22 18:19:00 155 mm[Hg] [facility] Diastolic blood pressure 2024-02-22 18:19:00 77 mm[Hg] [facility] Heart rate 2024-02-22 18:18:00 83 /min [facility] Body temperature 2024-02-22 18:18:00 36.83 [place] [facility] Respiratory rate 2024-02-22 18:18:00 18 /min [facility] Body height 2024-02-22 18:18:00 160 cm [facility] Body weight 2024-02-22 18:18:00 88.905 kg [facility] BMI 2024-02-22 18:18:00 34.72 kg/m2 [facility] Oxygen saturation in Arterial blood by Pulse oximetry 2024-02-22 18:18:00 95 /min [facility] Systolic blood pressure 2023-07-20 19:21:00 146 mm[Hg] [facility] Diastolic blood pressure 2023-07-20 19:21:00 85 mm[Hg] [facility] Heart rate 2023-07-20 19:01:00 60 /min [facility] Body temperature 2023-07-20 19:01:00 36.72 [place] [facility] Respiratory rate 2023-07-20 19:01:00 18 /min [facility] Body height 2023-07-20 19:01:00 160 cm [facility] Body weight 2023-07-20 19:01:00 91.581 kg [facility] BMI 2023-07-20 19:01:00 35.76 kg/m2 [facility] Oxygen saturation in Arterial blood by Pulse oximetry 2023-07-20 19:01:00 95 /min [facility] Systolic blood pressure 2023-04-30 18:03:00 163 mm[Hg] [facility] Diastolic blood pressure 2023-04-30 18:03:00 79 mm[Hg] [facility] Heart rate 2023-04-30 18:03:00 61 /min [facility] Respiratory rate 2023-04-30 18:03:00 18 /min [facility] Body height 2023-04-30 18:03:00 160 cm [facility] Body weight 2023-04-30 18:03:00 92.035 kg [facility] BMI 2023-04-30 18:03:00 35.94 kg/m2 [facility] Oxygen saturation in Arterial blood by Pulse oximetry 2023-04-30 18:03:00 97 /min [facility] Systolic blood pressure 2022-04-24 19:04:00 157 mm[Hg] [facility] Diastolic blood pressure 2022-04-24 19:04:00 93 mm[Hg] [facility] Heart rate 2022-04-24 19:04:00 87 /min [facility] Body temperature 2022-04-24 19:04:00 36.94 [place] [facility] Body height 2022-04-24 19:04:00 162.6 cm [facility] Body weight 2022-04-24 19:04:00 92.806 kg [facility] BMI 2022-04-24 19:04:00 35.12 kg/m2 [facility] Oxygen saturation in Arterial blood by Pulse oximetry 2022-04-24 19:04:00 95 /min [facility] Systolic blood pressure 2024-12-19 16:41:00 103 mm[Hg] [facility] Diastolic blood pressure 2024-12-19 16:41:00 68 mm[Hg] [facility] Heart rate 2024-12-19 16:41:00 78 /min [facility] Body temperature 2024-12-19 16:41:00 36.5 Savanna [facility] Body height 2024-12-19 16:41:00 160 cm [facility] Body weight 2024-12-19 16:41:00 69.4 kg [facility] BMI 2024-12-19 16:41:00 27.10 kg/m2 [facility] Oxygen saturation in Arterial blood by Pulse oximetry 2024-12-19 16:41:00 96 /min [facility] Respiratory rate 2024-12-12 16:14:00 18 /min [facility] Systolic blood pressure 2024-12-10 16:57:00 129 mm[Hg] [facility] Diastolic blood pressure 2024-12-10 16:57:00 77 mm[Hg] [facility] Heart rate 2024-12-10 16:57:00 108 /min [facility] Body temperature 2024-12-10 16:57:00 36.5 Savanna [facility] Respiratory rate 2024-12-10 16:57:00 18 /min [facility] Oxygen saturation in Arterial blood by Pulse oximetry 2024-12-10 16:57:00 94 /min [facility] Body weight 2024-12-10 09:00:00 61.5 kg [facility] BMI 2024-12-10 09:00:00 24.02 kg/m2 [facility] Body height 2024-12-08 17:18:00 160 cm [facility] Procedures Procedure Date / Time Performed Performing Clinician Source CBC WITH DIFF 2024-12-12 17:15:00 Malathi Garcia [facility] CBC WITH DIFF 2024-12-12 17:15:00 Malathi Garcia [facility] BASIC METABOLIC PANEL (NA, K , CL, CO2, GLUCOSE, BUN, CREATININE, CA) 2024-12-12 17:14:00 Malathi Garcia [facility] BASIC METABOLIC PANEL (NA, K , CL, CO2, GLUCOSE, BUN, CREATININE, CA) 2024-12-12 17:14:00 Malathi Garcia [facility] PHOSPHORUS 2024-12-12 10:31:00 Gageidacaroline [facility] MAGNESIUM 2024-12-12 10:31:00 Heidari [facility] PHOSPHORUS 2024-12-12 10:31:00 Heidari [facility] MAGNESIUM 2024-12-12 10:31:00 Heidari [facility] PHOSPHORUS 2024-12-11 09:21:00 Ezequiel [facility] MAGNESIUM 2024-12-11 09:21:00 Ezequiel [facility] BASIC METABOLIC PANEL (NA, K , CL, CO2, GLUCOSE, BUN, CREATININE, CA) 2024-12-11 09:21:00 Ezequiel [facility] CBC WITH DIFF 2024-12-11 09:21:00 Heidari [facility] PHOSPHORUS 2024-12-11 09:21:00 Heidari [facility] MAGNESIUM 2024-12-11 09:21:00 Gageidari [facility] CBC WITH DIFF 2024-12-11 09:21:00 Gageidacaroline [facility] BASIC METABOLIC PANEL (NA, K , CL, CO2, GLUCOSE, BUN, CREATININE, CA) 2024-12-11 09:21:00 Heidacaroline [facility] PHOSPHORUS 2024-12-10 09:49:00 Heidari [facility] MAGNESIUM 2024-12-10 09:49:00 Heidacaroline [facility] CBC WITH DIFF 2024-12-10 09:49:00 Gageidacaroline [facility] BASIC METABOLIC PANEL (NA, K , CL, CO2, GLUCOSE, BUN, CREATININE, CA) 2024-12-10 09:49:00 Heidari [facility] PHOSPHORUS 2024-12-10 09:49:00 Heidacaroline [facility] MAGNESIUM 2024-12-10 09:49:00 Gageidacaroilne [facility] BASIC METABOLIC PANEL (NA, K , CL, CO2, GLUCOSE, BUN, CREATININE, CA) 2024-12-10 09:49:00 Gageidacaroline [facility] CBC WITH DIFF 2024-12-10 09:49:00 Heidari [facility] PHOSPHORUS 2024-12-09 10:15:00 Heidari [facility] MAGNESIUM 2024-12-09 10:15:00 Gageidacaroline [facility] CBC WITH DIFF 2024-12-09 10:15:00 Gageidacaroline [facility] BASIC METABOLIC PANEL (NA, K , CL, CO2, GLUCOSE, BUN, CREATININE, CA) 2024-12-09 10:15:00 Heidari [facility] PHOSPHORUS 2024-12-09 10:15:00 Heidari, [facility] MAGNESIUM 2024-12-09 10:15:00 Heidari [facility] BASIC METABOLIC PANEL (NA, K , CL, CO2, GLUCOSE, BUN, CREATININE, CA) 2024-12-09 10:15:00 Gageidacaroline [facility] CBC WITH DIFF 2024-12-09 [facility] TUNNELE D PLEURAL 2024-12-08 18:32:00 Dede [facility] IR INSERT INDWELLING TUNNELE D PLEURAL 2024-12-08 18:32:00 Dede [facility] PHOSPHORUS 2024-12-08 16:35:00 Ezequiel [facility] MAGNESIUM 2024-12-08 16:35:00 Ezequiel [facility] CBC WITH DIFF 2024-12-08 16:35:00 Ezequiel [facility] BASIC METABOLIC PANEL (NA, K , CL, CO2, GLUCOSE, BUN, CREATININE, CA) 2024-12-08 16:35:00 Ezequiel [facility] PHOSPHORUS 2024-12-08 16:35:00 Ezequiel [facility] MAGNESIUM 2024-12-08 16:35:00 Ezequiel [facility] BASIC METABOLIC PANEL (NA, K , CL, CO2, GLUCOSE, BUN, CREATININE, CA) 2024-12-08 16:35:00 Ezequiel [facility] CBC WITH DIFF 2024-12-08 16:35:00 Ezequiel [facility] PROTHROMBIN TIME / INR 2024-12-08 16:30:00 Dede [facility] PROTHROMBIN TIME / INR 2024-12-08 16:30:00 Dede, [facility] XR CHEST 1 VW 2024-12-07 17:02:16 Dede [facility] XR CHEST 1 VW 2024-12-07 17:02:16 Dede [facility] EGD (ENDO) 2024-12-07 14:20:43 Ezequiel [facility] EGD (ENDO) 2024-12-07 14:20:43 Ezequiel [facility] SURGICAL PATHOLOGY EXAM 2024-12-07 13:57:00 Marbella Vale [facility] SURGICAL PATHOLOGY EXAM 2024-12-07 13:57:00 Marbella Vale [facility] ESOPHAGOGASTRODUODENOSCOPY 2024-12-07 13:26:00 [facility] 2024-12-07 13:26:00 [facility] 2024-12-07 10:38:00 Heidari [facility] MAGNESIUM 2024-12-07 10:38:00 Ezequiel [facility] CBC WITH DIFF 2024-12-07 10:38:00 Gageidari [facility] BASIC METABOLIC PANEL (NA, K , CL, CO2, GLUCOSE, BUN, CREATININE, CA) 2024-12-07 10:38:00 Heidari [facility] PHOSPHORUS 2024-12-07 10:38:00 Heidari [facility] MAGNESIUM 2024-12-07 10:38:00 Gageidacaroline [facility] BASIC METABOLIC PANEL (NA, K , CL, CO2, GLUCOSE, BUN, CREATININE, CA) 2024-12-07 10:38:00 Gageidari [facility] CBC WITH DIFF 2024-12-07 10:38:00 Heidari [facility] PHOSPHORUS 2024-12-06 10:20:00 Heidari [facility] MAGNESIUM 2024-12-06 10:20:00 Heidari, [facility] CBC WITH DIFF 2024-12-06 10:20:00 idari [facility] BASIC METABOLIC PANEL (NA, K , CL, CO2, GLUCOSE, BUN, CREATININE, CA) 2024-12-06 10:20:00 Heidari [facility] FOLATE 2024-12-06 [facility] 2024-12-06 10:20:00 Heidari, [facility] PHOSPHORUS 2024-12-06 10:20:00 Heidari, [facility] MAGNESIUM 2024-12-06 10:20:00 Heidari [facility] FOLATE 2024-12-06 10:20:00 Heidari [facility] BASIC METABOLIC PANEL (NA, K , CL, CO2, GLUCOSE, BUN, CREATININE, CA) 2024-12-06 10:20:00 Ezequiel [facility] CBC WITH DIFF 2024-12-06 10:20:00 Ezequiel [facility] N-TERMINAL PRO-BNP 2024-12-06 10:20:00 Ezequiel [facility] IRON PANEL 2024-12-05 23:48:00 Ezequiel [facility] RETICULOCYTES AUTOMATED 2024-12-05 23:48:00 Ezequiel [facility] IRON PANEL 2024-12-05 23:48:00 Ezequiel [facility] RETICULOCYTES AUTOMATED 2024-12-05 23:48:00 Ezequiel [facility] PREPARE PACKED RBC 2024-12-05 16:17:27 Dhaval [facility] PREPARE PACKED RBC 2024-12-05 16:17:27 Dhaval [facility] XR HUMERUS 2 VW LEFT 2024-12-05 15:55:00 Jarrod [facility] XR HUMERUS 2 VW LEFT 2024-12-05 15:55:00 [facility]PELVIS 2024-12-05 14:08:[address] [facility] [address] ANGIOGRAM ABDOMEN/PELVIS 2024-12-05 14:08:31 Edd [facility] ABORH CONFIRMATION (LAB ONLY) 2024-12-05 13:15:00 Richard [facility] ABORH CONFIRMATION (LAB ONLY) 2024-12-05 13:15:00 [facility] 2024-12-05 12:52:00 Dhaval [facility] HB ABO GROUPING 2024-12-05 12:52:00 Dhaval [facility] CBC WITHOUT DIFF 2024-12-05 11:11:00 Edd [facility] BASIC METABOLIC PANEL (NA, K , CL, CO2, GLUCOSE, BUN, CREATININE, CA) 2024-12-05 11:11:00 Edd [facility] MAGNESIUM 2024-12-05 11:11:00 Edd [facility] MAGNESIUM 2024-12-05 11:11:00 Edd [facility] BASIC METABOLIC PANEL (NA, K , CL, CO2, GLUCOSE, BUN, CREATININE, CA) 2024-12-05 11:11:00 Edd [facility] CBC WITHOUT DIFF 2024-12-05 11:11:00 Edd [facility] LACTATE DEHYDROGENASE 2024-12-04 21:27:00 Dede [facility] CBC WITHOUT DIFF 2024-12-04 21:27:00 Edd [facility] LACTATE DEHYDROGENASE 2024-12-04 21:27:00 Dede [facility] CBC WITHOUT DIFF 2024-12-04 21:27:00 Edd [facility] XR CHEST 1 VW 2024-12-04 20:11:14 Kaylee Oakes [facility] XR CHEST 1 VW 2024-12-04 20:11:14 Kaylee Oakes [facility] IR THORACENTESIS WITH IMAGING 2024-12-04 19:25:18 Dede [facility] IR THORACENTESIS WITH IMAGING 2024-12-04 19:25:18 Dede [facility] LDH TOTAL BODY FLUID 2024-12-04 19:11:00 Dede [facility] T.PROTEIN BODY FLUID 2024-12-04 19:11:00 Dede [facility] GLUCOSE BODY FLUID 2024-12-04 19:11:00 Dede [facility] BODY FLUID CULTURE(AEROBIC/ANAEROBIC) 2024-12-04 19:11:00 Dede [facility] PH, BODY FLUID 2024-12-04 19:11:00 Dede [facility] CYTO PLEURAL FLUID 2024-12-04 19:11:00 Dede, [facility] GLUCOSE BODY FLUID 2024-12-04 19:11:00 Dede [facility] PH, BODY FLUID 2024-12-04 19:11:00 Dede, [facility] T.PROTEIN BODY FLUID 2024-12-04 19:11:00 Dede [facility] LDH TOTAL BODY FLUID 2024-12-04 19:11:00 [facility] BODY FLUID CULTURE(AEROBIC/ANAEROBIC) 2024-12-04 19:11:00 Dede, [facility] CYTO PLEURAL FLUID 2024-12-04 19:11:00 Dede, [facility] PROTHROMBIN TIME / INR 2024-12-04 16:25:00 [facility] PROTHROMBIN TIME / INR 2024-12-04 16:25:00 Kaylee Oakes [facility] LEGIONELLA AND STREPTOCOCCUS PNEUMONIAE URINARY ANTIGENS 2024-12-04 12:37:00 Pedrito Silverman [facility] LEGIONELLA AND STREPTOCOCCUS PNEUMONIAE URINARY ANTIGENS 2024-12-04 12:37:00 Pedrito Silverman [facility] PROCALCITONIN 2024-12-04 06:16:00 Pedrito Silverman [facility] CBC WITH DIFF 2024-12-04 06:16:00 Pedrito Silverman [facility] BASIC METABOLIC PANEL (NA, K , CL, CO2, GLUCOSE, BUN, CREATININE, CA) 2024-12-04 06:16:00 Pedrito Silverman [facility] IRON PANEL 2024-12-04 06:16:00 Edd [facility] FERRITIN SERUM 2024-12-04 06:16:00 Edd [facility] FERRITIN SERUM 2024-12-04 06:16:00 Edd [facility] BASIC METABOLIC PANEL (NA, K , CL, CO2, GLUCOSE, BUN, CREATININE, CA) 2024-12-04 06:16:00 Pedrito Silverman [facility] IRON PANEL 2024-12-04 06:16:00 Antonio Puga [facility] CBC WITH DIFF 2024-12-04 06:16:00 Pedrito Silverman [facility] PROCALCITONIN 2024-12-04 06:16:00 Pedrito Silverman [facility] HB ECG ROUTINE & RHYTHM STRIP 2024-12-04 00:14:44 Pricila Davis [facility] HB ECG ROUTINE & RHYTHM STRIP 2024-12-04 00:14:44 Ryan [facility] CBC WITH DIFF 2024-12-04 00:06:00 Ryan [facility] COMP. METABOLIC PANEL (76484) 2024-12-04 00:06:00 Ryan [facility] TROPONIN I 2024-12-04 00:06:00 Ryan [facility] N-TERMINAL PRO-BNP 2024-12-04 00:06[facility]-12-04 00:06[facility]00 [facility] COMP. METABOLIC PANEL (64423) 2024-12-04 00:06:00 [facility] WITH DIFF 2024-12-04 00:06:00 Ryan [facility] N-TERMINAL PRO-BNP 2024-12-04 00:06:00 Ryan [facility] AC PANEL 20 + LACTIC ACID 2024-12-03 22:40:00 [facility] + LACTIC ACID 2024-12-03 22:40:00 [facility]W 2024-12-03 22:24:49 [facility]W 2024-12-03 22:24:49 [facility] 2024-12-03 21:51:00 [facility] 2024-12-03 21:51:00 Pricila Davis [facility] FL TIME OR (NON-REPORTABLE) 2024-11-21 18:45:00 Addie Aguilera [facility] FL TIME OR (NON-REPORTABLE) 2024-11-21 18:45:00 Addie Aguilera [facility] FL TIME OR (NON-REPORTABLE) 2024-11-21 18:45:00 Addie Aguilera [facility] INTUBATION 2024-11-21 17:29:00 Robert Hernández [facility] INTUBATION 2024-11-21 17:29:00 Robert Hernández [facility] NERVE BLOCK 2024-11-21 17:23:28 Jaida Garcia [facility] NERVE BLOCK 2024-11-21 17:23:28 Jaida Garcia [facility] [id number] - [place] HUMRAL SHAFT F X W/INSJ IMED IMPLT W/W CERCLGE 2024-11-21 17:04:00 Addie Aguilera [facility] [id number] - [place] HUMRAL SHAFT F X W/INSJ IMED IMPLT W/W CERCLGE 2024-11-21 17:04:00 Addie Aguilera [facility] CT HUMERUS LEFT WO CONTRAST 2024-11-17 17:43:00 Addie Aguilera [facility] CT HUMERUS LEFT WO CONTRAST 2024-11-17 17:43:00 Addie Aguilera [facility] HB ECG ROUTINE & RHYTHM STRIP 2024-11-17 16:59:46 Addie Aguilera [facility] URINALYSIS 2024-11-17 16:22:00 Addie Aguilera [facility] XR CHEST 1 VW 2024-11-17 14:54:41 Addie Aguilera [facility] XR CHEST 1 VW 2024-11-17 14:54:41 Addie Aguilera [facility] CBC WITH DIFF 2024-11-14 20:35:00 Nicolle Rondon [facility] THYROID STIMULATING HORMONE 2024-11-14 20:35:00 Nicolle Rondon [facility] FREE T4 2024-11-14 20:35:00 Nicolle Rondon [facility] COMP. METABOLIC PANEL ([id number]) 2024-11-14 20:35:00 Nicolle Rondon [facility] VITAMIN D, 25-OH 2024-11-14 20:35:00 Nicolle Rondon [facility] VITAMIN B6, PLASMA 2024-11-14 20:35:00 Nicolle Rondon [facility] VITAMIN B12, LEVEL 2024-11-14 20:35:00 Nicolle Rondon [facility] VITAMIN B1 (THIAMINE), WHOLE BLOOD 11-14 20:35:00 Nicolle Rondon [facility] TRANSTHORACIC ECHO (TTE) COMPLETE 03-22 16:49:44 Stella Keita [facility] CBC WITH DIFF 2024-02-22 19:12:00 Nicolle Rondon [facility] [id number] 2023-12-17 00:00:00 ROSMI [facility] [id number] 2023-12-17 00:00:00 ROSMI [facility] [id number] 2023-12-15 00:00:00 SHAJA02 [facility] XR HIPS 2 VW BILATERAL 2023-07-20 19:48:44 Po Cervantes [facility] ASSIGNMENT OF BENEFITS 2023-07-20 18:47:56 Doctor Unassigned, Hargill [facility] BI SCREENING TOMOSYNTHESIS BILATERAL 2023-04-30 17:23:27 Daniela Mcqueen [facility] COLONOSCOPY (ENDO) 2017-11-15 17:17:59 Gibran Mena [facility] DEXA AXIAL (HIP AND SPINE) 2016-12-22 19:01:00 Norma Benson [facility] HCV ANTIBODY 2016-03-04 17:17:00 Demetra Giraldo [facility] MAMMO GUIDED WIRE LOCALIZATION 2015-10-21 5 14:00:00 Daniela Mcqueen [facility] OPERATIVE NOTES 2015-11-04 06:01:00 Doctor Unassigned, Hargill [facility] HOSPITAL ADMISSION 2015-11-04 06:01:00 Doctor Unassigned, Hargill [facility] CONSENT/REFUSAL FOR DIAGNOSI S AND TREATMENT 2015-05-15 20:18:07 Doctor Unassigned, Hargill [facility] CONSENT/REFUSAL FOR DIAGNOSI S AND TREATMENT 2015-05-15 20:14:42 Doctor Unassigned, Hargill [facility] BI DIAGNOSTIC MAMMOGRAM BILATERAL 05-15 15:10:00 Demetra Giraldo [facility] PATIENT QUESTIONNAIRE 2015-05-15 05:01:00 Doctor Unassigned, Hargill [facility] Encounters Start Date/Time End Date/Time Encounter Type Admission Type Attending Clinicians Care Facility Care Department Encounter ID Source 2025-01-08 00:00:00 2025-01-08 03:39:05 Josephine Friend [facility] 1.2.840.114 350.1.13.10 4.2.7.2.686 [id number] [facility] 2025-01-08 00:00:00 2025-01-08 03:38:34 RefJosephine Cardenas AT [facility] 1.2.840.114 350.1.13.10 4.2.7.2.686 [id number] [facility] 2025-01-02 00:00:00 2025-01-03 08:08:06 Telephone Nicolle Rondon [facility] 1..840.114 350.1.13.10 4.2.7.2.686 [id number] [facility] 2024-12-26 14:30:00 2024-12-26 14:30:00 Outpatient R [facility]ICOLLE [facility] [id number] [facility] 2024-11-16 00:00:00 2024-12-23 18:20:15 Patient Secure Msg Alcon [facility] 1..840.114 350.1.13.10 4.2.7.2.686 [id number] [facility] 2024-11-21 00:00:00 2024-12-23 18:15:45 Patient Secure Msg Doctor Unassigned, Hargill Doctor Unassigned, [facility]argill [facility] 1.2.840.114 350.1.13.10 4.2.7.2.686 [id number] [facility] 2024-12-21 00:00:00 2024-12-22 08:09:33 Telephone Nicolle Rondon [facility] 1..840.114 350.1.13.10 4.2.7.2.686 [id number] [facility] 2024-12-21 13:00:00 2024-12-21 13:00:00 Outpatient [facility] [id number] [facility] 2024-12-19 00:00:00 2024-12-20 14:54:21 Refill Alcon Nicolle [facility] JONNY?[facility] 1..840.114 350.1.13.10 4.2.7.2.686 [id number] [facility] 2024-12-19 00:00:00 2024-12-20 14:29:38 Patient Secure Msg Alcon Nicolle [facility] 1..840.114 350.1.13.10 4.2.7.2.686 [id number] [facility] 2024-12-19 11:41:20 2024-12-19 23:59:00 Outpatient R ADDIE AGUILERA [facility] [id number] [facility] 2024-12-19 11:45:00 2024-12-19 12:10:52 Office Visit Aguilera, Addie L 1.2.840.1 83729.1.1 3.104.2.7 .3.527298 .8 [id number] [facility] 2024-12-19 00:00:00 2024-12-19 00:00:00 Patient Secure Msg Nicolle Rondon 1.2.840.1 35018.1.1 3.104.2.7 .3.478068 .8 [id number] [facility] 2024-12-18 00:00:00 2024-12-18 00:00:00 Travel 1.2.840.1 70812.1.1 3.104.2.7 .3.856736 .8 1.2.840.114 350.1.13.10 4.2.7.3.698 [id number] [facility] 2024-12-12 00:00:00 2024-12-13 12:41:37 Telephone Nicolle Rondon 1.2.840.1 30634.1.1 3.104.2.7 .3.552484 .8 [id number] [facility] 2024-12-13 00:00:00 2024-12-13 11:54:49 Transition of Care Sandra Clancy 1.2.840.1 55215.1.1 3.104.2.7 .3.142843 .8 [id number] [facility] 2024-12-03 17:03:00 2024-12-12 16:08:00 Inpatient X [facility] [id number] [facility] 2024-12-03 17:03:00 2024-12-12 16:08:00 Hospital Encounter Pricila Davis, Malick Ascencio, Chinyere Scott, Josafat Nieves, Roland Moran, Fern Levine, Stone Oh 1.2.840.1 36016.1.1 3.104.2.7 .3.327962 .8 [id number] [facility] 2024-12-07 08:36:00 2024-12-07 09:06:00 Anesthesia Event Jaida Garcia Leroy 1.2.840.1 03902.1.1 3.104.2.7 .3.024981 .8 [id number] [facility] 2024-12-07 08:19:00 2024-12-07 09:03:00 Surgery Marbella Vale 1.2.840.1 48102.1.1 3.104.2.7 .3.644034 .8 [id number] [facility] 2024-12-04 00:00:00 2024-12-04 13:39:01 Telephone Addie Aguilera 1.2.840.1 56557.1.1 3.104.2.7 .3.458189 .8 [id number] [facility] 2024-12-03 16:45:00 2024-12-03 17:51:30 Nurse Visit Unknown, Attending Gregory Patrick Nurse, [facility] 1.2.840.1 11631.1.1 3.104.2.7 .3.781690 .8 [id number] [facility] 2024-12-03 16:46:42 2024-12-03 16:49:00 Emergency [facility] [id number] [facility] 2024-12-03 00:00:00 2024-12-03 16:49:00 Emergency 1.2.840.1 [id number] 3.104.2.7 .3.829621 .8 [id number] [facility] 2024-12-03 16:45:00 2024-12-03 16:45:00 Outpatient R [facility]REGORY [facility] [id number] [facility] 2024-12-03 00:00:00 2024-12-03 00:00:00 Travel 1.2.840.1 [id number] 3.104.2.7 .3.052816 .8 1.2.840.114 350.1.13.10 4.2.7.3.698 [id number] [facility] 2024-11-21 09:56:00 2024-11-21 15:26:00 Outpatient R ADDIE AGUILERA [facility] [id number] [facility] 2024-11-21 09:56:00 2024-11-21 15:26:00 Hospital Encounter Addie Aguilera 1.2.840.1 52423.1.1 3.104.2.7 .3.326170 .8 [id number] [facility] 2024-11-21 11:15:00 2024-11-21 15:05:00 Surgery Addie Aguilera 1.2.840.1 42413.1.1 3.104.2.7 .3.528566 .8 [id number] [facility] 2024-11-21 11:18:00 2024-11-21 12:50:00 Anesthesia Event Casper Robles Brian 1.2.840.1 75489.1.1 3.104.2.7 .3.509141 .8 [id number] [facility] 2024-11-21 00:00:00 2024-11-21 10:37:07 Patient Secure Msg Doctor Unassigned, [place] 1.2.840.1 89822.1.1 3.104.2.7 .3.056350 .8 [id number] [facility] 2024-11-16 00:00:00 2024-11-21 08:24:09 Patient Secure Msg Nicolle Rondon 1.2.840.1 00754.1.1 3.104.2.7 .3.608406 .8 [id number] [facility] 2024-11-20 00:00:00 2024-11-20 00:00:00 Travel 1.2.840.1 71069.1.1 3.104.2.7 .3.088930 .8 1.2.840.114 350.1.13.10 4.2.7.3.698 084.8 [id number] [facility] 2024-11-17 10:12:24 2024-11-17 23:59:00 Hospital Encounter Addie Aguilera 1.2.840.1 31376.1.1 3.104.2.7 .3.870721 .8 [id number] [facility] 2024-11-17 08:30:00 2024-11-17 12:47:29 Outpatient R ADDIE AGUILERA [facility] [id number] [facility] 2024-11-17 08:30:00 2024-11-17 12:47:29 Office Visit Addie Aguilera 1.2.840.1 64801.1.1 3.104.2.7 .3.142545 .8 [id number] [facility] 2024-11-17 10:30:00 2024-11-17 11:43:37 Nurse Visit Addie Aguilera Visit, [facility] Nurse 1.2.840.1 49964.1.1 3.104.2.7 .3.394894 .8 [id number] [facility] 2024-11-17 11:00:00 2024-11-17 11:15:00 Hammer Smith Visit Addie Aguilera Pob, [facility] Lab Main 1.2.840.1 40019.1.1 3.104.2.7 .3.069273 .8 [id number] [facility] 2024-11-17 08:39:17 2024-11-17 10:11:00 Hospital Encounter Addie Aguilera 1.2.840.1 16077.1.1 3.104.2.7 .3.344373 .8 [id number] [facility] 2024-11-17 00:00:00 2024-11-17 09:30:53 Prep For Surgery Addie Aguilera 1.2.840.1 36712.1.1 3.104.2.7 .3.077678 .8 [id number] [facility] 2024-11-17 00:00:00 2024-11-17 00:00:00 Scanned Documents Doctor Unassigned, Hargill 1.2.840.1 99172.1.1 3.104.2.7 .3.103023 .8 [id number] [facility] 2024-11-17 00:00:00 2024-11-17 00:00:00 Scanned Documents Doctor Unassigned, Hargill 1.2.840.1 73340.1.1 3.104.2.7 .3.373570 .8 [id number] [facility] 2024-11-16 00:00:00 2024-11-16 00:00:00 Travel 1.2.840.1 56746.1.1 3.104.2.7 .3.960360 .8 1.2.840.114 350.1.13.10 4.2.7.3.698 084.8 [id number] [facility] 2024-11-15 00:00:00 2024-11-15 11:56:39 Patient Secure Msg Nicolle Rondon 1.2.840.1 77968.1.1 3.104.2.7 .3.743664 .8 [id number] [facility] 2024-11-14 16:00:00 2024-11-14 16:00:00 Hammer Smith Visit Nicolle Rondon Lab, Ang - Db 1.2.840.1 99541.1.1 3.104.2.7 .3.350147 .8 [id number] [facility] 2024-11-14 13:30:00 2024-11-14 14:19:18 Outpatient [facility] [id number] [facility] 2024-11-14 13:30:00 2024-11-14 14:19:18 Office Visit Nicolle Rondon 1.2.840.1 18814.1.1 3.104.2.7 .3.381275 .8 [id number] [facility] 2024-11-14 00:00:00 2024-11-14 00:00:00 Travel 1.2.840.1 39122.1.1 3.104.2.7 .3.150896 .8 1.2.840.114 350.1.13.10 4.2.7.3.698 084.8 [id number] [facility] 2024-11-09 00:00:00 2024-11-09 16:19:18 Refill Nicolle Rondon 1.2.840.1 16996.1.1 3.104.2.7 .3.098449 .8 [id number] [facility] 2015-05-15 00:00:00 2024-11-04 04:25:58 Orders Only Doctor Unassigned, Hargill Doctor Unassigned, Hargill [facility] ([place]) 1.2.840.114 350.1.13.10 4.2.7.2.686 [id number] 009 [id number] [facility] 2015-05-15 00:00:00 2024-11-04 04:25:57 Orders Only Doctor Unassigned, Hargill Doctor Unassigned, Hargill [facility] ([place]) 1.2.840.114 350.1.13.10 4.2.7.2.686 [id number] 009 [id number] [facility] 2015-05-15 00:00:00 2024-11-04 04:25:57 Orders Only Doctor Unassigned, Hargill Doctor Unassigned, Hargill [facility] ([place]) 1.2.840.114 350.1.13.10 4.2.7.2.686 [id number] 009 [id number] [facility] 2015-05-15 00:00:00 2024-11-04 04:25:56 Orders Only Doctor Unassigned, Hargill Doctor Unassigned, Hargill [facility] ([place]) 1.2.840.114 350.1.13.10 4.2.7.2.686 [id number] 009 [id number] [facility] 2015-05-15 00:00:00 2024-11-04 04:25:56 Orders Only Doctor Unassigned, Hargill Doctor Unassigned, Hargill [facility] ([place]) 1.2.840.114 350.1.13.10 4.2.7.2.686 [id number] 009 [id number] [facility] 2015-05-15 00:00:00 2024-11-04 04:25:56 Orders Only Doctor Unassigned, Hargill Doctor Unassigned, Hargill [facility] ([place]) 1.2.840.114 350.1.13.10 4.2.7.2.686 [id number] 009 [id number] [facility] 2015-11-04 00:00:00 2024-11-04 04:19:47 Orders Only Doctor Unassigned, Hargill Doctor Unassigned, Hargill [facility] ([place]) 1.2.840.114 350.1.13.10 4.2.7.2.686 [id number] 009 [id number] [facility] 2024-10-04 00:00:00 2024-10-04 08:20:35 Telephone Bossman Nandacanelo 1.2.840.1 66334.1.1 3.104.2.7 .3.911747 .8 [id number] [facility] 2024-08-30 00:00:00 2024-08-30 15:53:21 Patient Secure Msg Doctor Unassigned, Hargill Doctor Unassigned, Hargill [facility] 1.2.840.114 350.1.13.10 4.2.7.2.686 [id number] 044 [id number] [facility] 2024-08-22 13:30:00 2024-08-22 13:45:00 Hammer Smith Visit 2, Adc Lab Stella Keita 2, Adc Lab [facility] BUILDING 1.2.840.114 350.1.13.10 4.2.7.2.686 [id number] [facility] 2024-08-22 13:00:00 2024-08-22 13:32:09 [facility] [id number] [facility] 2024-08-22 13:00:00 2024-08-22 13:32:09 Office Visit Stella Keita [facility] BUILDING 1..840.114 350.1.13.10 4.2.7.2.686 [id number] 059 [id number] [facility] 2024-08-21 00:00:00 2024-08-21 17:16:11 Telephone Nicolle Rondon [facility] OFF[facility] BUILD[facility] 1.2.840.114 350.1.13.10 4.2.7.2.686 [id number] 044 [id number] [facility] 2024-08-14 14:00:00 2024-08-14 14:15:00 Hammer Smith Visit Lab, Nicolle Chilel Lab, Ang - Julián [facility] 1.2.840.114 350.1.13.10 4.2.7.2.686 [id number] 353 [id number] [facility] 2024-08-14 13:30:00 2024-08-14 13:57:43 Outpatient [facility] [id number] [facility] 2024-08-14 13:30:00 2024-08-14 13:57:43 Office Visit Nicolle Rondon [facility] 1.2840.114 350.1.13.10 4.2.7.2.686 [id number] 044 [id number] [facility] 2024-07-06 00:00:00 2024-08-11 14:38:52 Refill [facility] 1.2.840.114 350.1.13.10 4.2.7.2.686 [id number] 059 [id number] [facility] 2024-08-03 00:00:00 2024-08-04 07:07:34 Refill Nicolle Rondon [facility] J[facility]NY?[facility] BU[facility] 1.2840.114 350.1.13.10 4.2.7.2.686 [id number] 044 [id number] [facility] 2024-07-07 00:00:00 2024-07-07 11:20:00 Refill Nicolle Rondon [facility] JONNY?[facility] MED[facility] OFF[facility] BUILDING 1.2840.114 350.1.13.10 4.2.7.2.686 [id number] 044 [id number] [facility] 2024-05-23 13:00:00 2024-05-23 13:20:00 Office Visit Stella Keita [facility] BUILDING 1.2840.114 350.1.13.10 4.2.7.2.686 [id number] 059 [id number] [facility] 2024-05-23 13:00:00 2024-05-23 13:00:00 Outpatient R [facility]A [facility] [id number] [facility] 2024-05-18 00:00:00 2024-05-18 13:28:40 Letter (Out) [facility] 1.2840.114 350.1.13.10 4.2.7.2.686 [id number] 019 [id number] [facility] 2024-05-12 14:15:00 2024-05-12 14:30:00 Hammer Smith Visit Lab, Nicolle Chilel, Juan Gallego [facility] JONNY?[facility] MEDICAL OFFICE BUILDING 1.2.840.114 350.1.13.10 4.2.7.2.686 [id number] [facility] 2024-05-12 13:00:00 2024-05-12 13:32:39 Outpatient [facility] [id number] [facility] 2024-05-12 13:00:00 2024-05-12 13:32:39 Office Visit Nicolle Rondon [facility] JONNY?PERLABilly [facility] MEDICAL OFFICE BUILDING 1..840.114 350.1.13.10 4.2.7.2.686 [id number] 044 [id number] [facility] 2024-04-13 00:00:00 2024-04-13 11:14:44 Telephone [facility] 1..840.114 350.1.13.10 4.2.7.2.686 [id number] 059 [id number] [facility] 2024-04-06 00:00:00 2024-04-07 18:57:49 Refill Nicolle Rondon [facility] MEDICAL OFFICE BUILDING 1.2.840.114 350.1.13.10 4.2.7.2.686 [id number] 044 [id number] [facility] 2024-03-10 00:00:00 2024-03-30 09:06:18 Patient Secure Msg Nanda [facility] 1.2.840.114 350.1.13.10 4.2.7.2.686 [id number] 059 [id number] [facility] 2024-03-29 15:00:00 2024-03-29 15:00:00 Outpatient R CICI [facility] [id number] [facility] 2024-02-23 00:00:00 2024-03-25 18:20:02 Patient Secure Msg Doctor Unassigned, Hargill [facility] MED[facility] OFFICE BUILDING 1.2.840.114 350.1.13.10 4.2.7.2.686 [id number] 059 [id number] [facility] 2024-02-23 00:00:00 2024-03-25 18:15:58 Patient Secure Msg Doctor Unassigned, Hargill [facility] 1.2.840.114 350.1.13.10 4.2.7.2.686 [id number] 044 [id number] [facility] 2024-03-22 10:57:23 2024-03-22 23:59:00 [facility] [id number] [facility] 2024-03-22 10:57:23 2024-03-22 23:59:00 Hospital Encounter [facility] 1.2.840.114 350.1.13.10 4.2.7.2.686 [id number] [id number] [facility] 2024-03-22 14:40:00 2024-03-22 14:45:28 Office Visit Nanda [facility] 1.2.840.114 350.1.13.10 4.2.7.2.686 [id number] 059 [id number] [facility] 2024-03-14 13:00:00 2024-03-14 13:32:08 Outpatient R [facility] [id number] [facility] 2024-03-14 13:00:00 2024-03-14 13:32:08 Office Visit Nicol[facility] Rondon [facility] MED[facility] OFFICE BUILDING 1.840.114 350.1.13.10 4.2.7.2.686 [id number] 044 [id number] [facility] 2024-03-10 00:00:00 2024-03-13 08:03:36 Telephone Nicolle Rondon [facility] JONNY?[facility] MEDICAL OFFICE BUILDING 1.840.114 350.1.13.10 4.2.7.2.686 [id number] 044 [id number] [facility] 2024-03-10 13:15:00 2024-03-10 13:30:00 Hammer Smith Visit Lab, Juan Keita [facility] OFFICE BUILDING 1.840.114 350.1.13.10 4.2.7.2.686 [id number] [facility] 2024-03-10 13:15:00 2024-03-10 13:25:45 Outpatient R [facility]OSSMAN [facility] [id number] [facility] 2024-03-07 15:40:00 2024-03-07 16:09:24 Outpatient R BOSSMAN [facility] [id number] [facility] 2024-03-07 15:40:00 2024-03-07 16:09:24 Office Visit Bossman [facility] 1.840.114 350.1.13.10 4.2.7.2.686 [id number] 059 [id number] [facility] 2024-02-24 00:00:00 2024-02-25 08:12:14 Telephone Nicolle Rondon [facility] JONNY?[facility] MEDICAL OFFICE BUILDING 1.840.114 350.1.13.10 4.2.7.2.686 [id number] 044 [id number] [facility] 2024-02-23 00:00:00 2024-02-23 11:12:56 Telephone Alcon Nicolel [facility]NY?[facility] 1.2840.114 350.1.13.10 4.2.7.2.686 [id number] 044 [id number] [facility] 2024-02-22 00:00:00 2024-02-23 10:43:52 Patient Secure Msg AlconNicolle [facility] 1.2840.114 350.1.13.10 4.2.7.2.686 [id number] 044 [id number] [facility] 2024-02-23 00:00:00 2024-02-23 08:57:07 Letter (Out) [facility] 1.284.114 350.1.13.10 4.2.7.2.686 [id number] 019 [id number] [facility] 2024-02-22 00:00:00 2024-02-22 17:00:47 Refill Alcon [facility] JONNY?[facility] BU[facility] 1.2840.114 350.1.13.10 4.2.7.2.686 [id number] 044 [id number] [facility] 2024-02-22 14:00:00 2024-02-22 14:15:00 Hammer Smith Visit Lab, Ang - Db Alcon [facility] JONNY?[facility] 1.2.840.114 350.1.13.10 4.2.7.2.686 [id number] [facility] 2024-02-22 13:00:00 2024-02-22 13:54:34 Outpatient [facility] [id number] [facility] 2024-02-22 13:00:00 2024-02-22 13:54:34 Office Visit Alcon Nicolle [facility] JONNY?[facility] OFF[facility] BUILDING 1.2.840.114 350.1.13.10 4.2.7.2.686 [id number] 044 [id number] [facility] 2023-12-16 17:55:00 2023-12-24 12:35:00 Inpatient Fern Tovar [facility] REHA [id number] [facility] 2023-12-13 22:03:00 2023-12-16 18:08:00 Inpatient Rah Ramirez [facility] MEDI.01 [id number] [facility] 2023-09-09 09:30:00 2023-09-09 10:14:38 Outpatient R ADDIE [facility]A [facility] [id number] [facility] 2023-09-09 09:30:00 2023-09-09 10:14:38 Ancillary [facility]afsa [facility] ..840.114 350.1.13.10 4.2.7.2.686 [id number] [facility] 2023-09-08 11:00:00 2023-09-08 11:45:00 Ancillary Visit Hafsa Villa Craig L [facility] BUILDING 1..840.114 350.1.13.10 4.2.7.2.686 [id number] [facility] 2023-09-02 11:00:00 2023-09-02 11:45:00 Ancillary Visit Hafsa Villa Craig L Vanaphan Po [facility] BUILDING 1..840.114 350.1.13.10 4.2.7.2.686 [id number] 179 [id number] [facility] 2023-08-31 10:15:00 2023-08-31 11:00:00 Ancillary Visit Irais Das Craig L Vanaphan [facility] BUILDING 1.2.840.114 350.1.13.10 4.2.7.2.686 [id number] [facility] 2023-08-24 16:00:00 2023-08-24 16:33:59 Ancillary Visit Samara Cano Craig L Vanaphan, [facility] PROFESSIO NAL BUILDING 1.2.840.114 350.1.13.10 4.2.7.2.686 [id number] [facility] 2023-08-20 10:15:00 2023-08-20 11:06:21 Ancillary Visit Hafsa Villa [facility] 1.2.840.114 350.1.13.10 4.2.7.2.686 [id number] [facility] 2023-08-18 11:00:00 2023-08-18 11:45:00 Ancillary Visit Hafsa Villa Craig L [facility] PROFESSIO NAL BUILDING 1.2.840.114 350.1.13.10 4.2.7.2.686 [id number] [facility] 2023-08-18 11:00:00 2023-08-18 11:00:00 Outpatient R ADDIE [facility]UILERA [facility] [id number] [facility] 2023-08-16 11:00:00 2023-08-16 11:00:00 [facility] [id number] [facility] 2023-08-10 09:30:00 2023-08-10 10:23:34 Ancillary Visit Hafsa Villa Craig L [facility] PROFESSIO NAL BUILDING 1.2.840.114 350.1.13.10 4.2.7.2.686 [id number] [facility] 2023-08-04 09:30:00 2023-08-04 10:15:00 Ancillary Visit Hafsa Villa Addie Veras [facility] BUILDING 1.2.840.114 350.1.13.10 4.2.7.2.686 [id number] [facility] 2023-07-30 10:15:00 2023-07-30 11:03:11 Ancillary Visit RachaelАлександр macea Addie Aguilera [facility] 1.2840.114 350.1.13.10 4.2.7.2.686 [id number] [facility] 2023-07-20 14:12:34 2023-07-20 23:59:00 [facility]patient [facility] [id number] [facility] 2023-07-20 14:12:34 2023-07-20 23:59:00 Hospital Encounter Po Cervantes [facility] JONNY?PERLABilly [facility] MEDICAL OFFICE BUILDING 1.2840.114 350.1.13.10 4.2.7.2.686 [id number] [facility] 2023-07-20 13:40:00 2023-07-20 15:17:33 Urgent Care Po Cervantes Unknown, Attending [facility] MEDICAL OFFICE BUILDING 1.2840.114 350.1.13.10 4.2.7.2.686 [id number] [facility] 2023-07-20 00:00:00 2023-07-20 00:00:00 Orders Only Doctor Unassigned, Hargill [facility] 1.2840.114 350.1.13.10 4.2.7.2.686 [id number] [facility] 2023-04-30 11:47:52 2023-04-30 23:59:00 Hospital Encounter Daniela Mcqueen [facility] 1.840.114 350.1.13.10 4.2.7.2.686 [id number] [facility] 2023-04-30 13:00:00 2023-04-30 13:15:00 Office Visit Daniela Mcqueen [facility] 1.0.114 350.1.13.10 4.2.7.2.686 [id number] [facility] 2023-04-30 13:00:00 2023-04-30 13:00:00 Outpatient R [facility]ELA [facility] [id number] [facility] 2023-01-29 00:00:00 2023-01-29 00:00:00 Patient Secure Msg Alyssa Kunz [facility] [place] 1.840.114 350.1.13.10 4.2.7.2.686 [id number] 044 [id number] [facility] 2022-06-29 00:00:00 2022-06-29 00:00:00 Patient Secure Msg Doctor Unassigned, Hargill [facility] 1.840.114 350.1.13.10 4.2.7.2.686 [id number] 044 [id number] [facility] 2022-04-25 00:00:00 2022-04-25 00:00:00 Patient Secure Msg Doctor Unassigned, Hargill [facility] 1.0.114 350.1.13.10 4.2.7.2.686 [id number] 028 [id number] [facility] 2022-04-24 13:03:42 2022-04-24 23:59:00 Outpatient R [facility]ELA [facility] [id number] [facility] 2022-04-24 13:03:42 2022-04-24 23:59:00 Hospital Encounter Daniela Mcqueen Johanny [facility] 1.2.840.114 350.1.13.10 4.2.7.2.686 [id number] [facility] 2022-04-24 14:15:00 2022-04-24 14:30:00 Office Visit Daniela Mcqueen [facility] 1.2.840.114 350.1.13.10 4.2.7.2.686 [id number] [facility] 2022-04-24 14:15:00 2022-04-24 14:15:00 Outpatient R DANIELA [facility] [id number] [facility] 2022-03-20 00:00:00 2022-03-20 00:00:00 Refill Alyssa Kunz [facility] PAV[facility]ION 1.2.840.114 350.1.13.10 4.2.7.2.686 [id number] 044 [id number] [facility] 2022-01-30 00:00:00 2022-01-30 00:00:00 Refill Alyssa Kunz [facility] 1.2.840.114 350.1.13.10 4.2.7.2.686 [id number] 044 [id number] [facility] 2021-05-09 00:00:00 2021-05-09 00:00:00 Patient Secure Msg Alyssa Kunz [facility] 1.2.840.114 350.1.13.10 4.2.7.2.686 [id number] 044 [id number] [facility] 2021-05-07 00:00:00 2021-05-07 00:00:00 Patient Secure Msg Doctor Unassigned, Hargill [facility] 1.2.840.114 350.1.13.10 4.2.7.2.686 [id number] [id number] [facility] 2021-04-30 00:00:00 2021-04-30 00:00:00 Letter (Out) Kailyn Cantu [facility] 1.0.114 350.1.13.10 4.2.7.2.686 [id number] [facility] 2021-04-30 00:00:00 2021-04-30 00:00:00 Telephone Alyssa Kunz [facility] 1.2840.114 350.1.13.10 4.2.7.2.686 [id number] [id number] [facility] 2021-04-30 00:00:00 2021-04-30 00:00:00 Patient Secure Msg Doctor Unassigned, Hargill [facility] 1.2840.114 350.1.13.10 4.2.7.2.686 [id number] [id number] [facility] 2021-04-29 18:30:33 2021-04-29 18:45:33 Laboratory Only Nurse, Gal Pcp Assessment Clinic Rah Jiang [facility] 1.0.114 350.1.13.10 4.2.7.2.686 [id number] [id number] [facility] 2021-04-29 18:30:00 2021-04-29 18:30:00 Outpatient [facility] [id number] [facility] 2021-04-08 13:00:00 2021-04-08 13:00:00 Outpatient DANIELA [facility] [id number] [facility] 2021-04-01 09:17:33 2021-04-01 23:59:00 Hospital Encounter Daniela Mcqueen [facility] 1.20.114 350.1.13.10 4.2.7.2.686 [id number] [facility] 2021-04-01 00:00:00 2021-04-01 00:00:00 Outpatient DANIELA [facility] [id number] [facility] 2021-01-18 00:00:00 2021-01-18 00:00:00 Patient Secure Msg Doctor Unassigned, Hargill [facility] BLD[facility]. 1.84.114 350.1.13.10 4.2.7.2.686 [id number] [facility] 2021-01-14 00:00:00 2021-01-14 00:00:00 Pre Visit Outreach Scooby Austin [facility] 1..114 350.1.13.10 4.2.7.2.686 [id number] 082 [id number] [facility] 2021-01-03 10:55:07 2021-01-03 11:46:59 Nurse Visit Pcp, Medicare Wellness Gal Fm Alyssa Kunz [facility] 1.84.114 350.1.13.10 4.2.7.2.686 [id number] [facility] 2021-01-03 11:00:00 2021-01-03 11:00:00 Outpatient R [facility] [id number] [facility] 2020-12-24 00:00:00 2020-12-24 00:00:00 Pre Visit Outreach Alyssa Kunz [facility] 1.84.114 350.1.13.10 4.2.7.2.686 [id number] [facility] 2020-12-20 12:38:06 2020-12-20 12:53:06 Hammer Smith Visit Pcp-Lab Alyssa Kunz [facility] 1.2.114 350.1.13.10 4.2.7.2.686 [id number] [facility] 2020-12-20 11:16:56 2020-12-20 12:40:04 Office Visit Alyssa Kunz [facility] 1.2.840.114 350.1.13.10 4.2.7.2.686 [id number] [facility] 2020-12-20 11:00:00 2020-12-20 11:00:00 Outpatient R [facility]SSA [facility] [id number] [facility] 2020-12-20 00:00:00 2020-12-20 00:00:00 Orders Only Doctor Unassigned, [place] [facility] 1.2.840.114 350.1.13.10 4.2.7.2.686 [id number] [facility] 2020-12-11 00:00:00 2020-12-11 00:00:00 Refill Alyssa Kunz [facility] 1.2.840.114 350.1.13.10 4.2.7.2.686 [id number] [facility] 2020-11-27 00:00:00 2020-11-27 00:00:00 Patient Secure Msg Alyssa Kunz [facility] 1.2.840.114 350.1.13.10 4.2.7.2.686 [id number] [facility] 2020-11-25 00:00:00 2020-11-25 00:00:00 Patient Outreach Srikanth Rogers [facility] 1.2.840.114 350.1.13.10 4.2.7.2.686 [id number] [facility] 2020-11-21 00:00:00 2020-11-21 00:00:00 Refill Alyssa Kunz [facility] 1.2.840.114 350.1.13.10 4.2.7.2.686 [id number] [facility] 2020-08-27 00:00:00 2020-08-27 00:00:00 Refill Eric Kunzuel Meeta [facility] 1.2.840.114 350.1.13.10 4.2.7.2.686 [id number] [facility] 2020-08-19 00:00:00 2020-08-19 00:00:00 Refill Alyssa Kunz [facility] 1.2.840.114 350.1.13.10 4.2.7.2.686 [id number] [id number] [facility] 2020-07-23 00:00:00 2020-07-23 00:00:00 Refill Alyssa Kunz [facility] 1.2.840.114 350.1.13.10 4.2.7.2.686 [id number] [facility] 2020-07-15 00:00:00 2020-07-15 00:00:00 Refill Alyssa Kunz [facility] 1.2.840.114 350.1.13.10 4.2.7.2.686 [id number] [facility] 2020-06-21 12:08:08 2020-06-21 12:41:20 Hammer Smith Visit Pcp-Lab Eric Kunzuel Meeta [facility] 1.2.840.114 350.1.13.10 4.2.7.2.686 [id number] [facility] 2020-06-21 10:56:02 2020-06-21 12:09:31 Office Visit Eric Kunzuel Meeta [facility] 1.2.840.114 350.1.13.10 4.2.7.2.686 [id number] [facility] 2020-06-21 11:00:00 2020-06-21 11:00:00 Outpatient R [facility]A [facility] [id number] [facility] 2020-04-10 09:11:00 2020-04-10 23:59:00 Hospital Encounter [facility] 1.2840.114 350.1.13.10 4.2.7.2.686 [id number] [facility] 2020-04-10 09:10:59 2020-04-10 09:10:59 Outpatient R [facility] [id number] [facility] 2020-04-10 09:10:00 2020-04-10 09:10:00 Hospital Encounter [facility] 1.20.114 350.1.13.10 4.2.7.2.686 [id number] [facility] 2020-03-26 09:48:37 2020-03-26 10:03:37 Office Visit Charisse Daniela [facility] 1.2840.114 350.1.13.10 4.2.7.2.686 [id number] [facility] 2020-03-26 10:00:00 2020-03-26 10:00:00 Outpatient R [facility]SE [facility] [id number] [facility] 2020-03-25 15:00:00 2020-03-25 15:00:00 Outpatient DAYNA [facility] [id number] [facility] 2020-03-25 11:47:14 2020-03-25 12:07:14 Telemedici ne Visit Alfonso Lucia Madiha A [facility] 1..114 350.1.13.10 4.2.7.2.686 [id number] [facility] 2020-03-25 00:00:00 2020-03-25 00:00:00 Thea Pat [facility] 1.2840.114 350.1.13.10 4.2.7.2.686 [id number] [facility] 2020-03-08 13:41:32 2020-03-08 23:59:00 Outpatient [facility]A [facility] [id number] [facility] 2020-03-08 13:41:00 2020-03-08 23:59:00 [facility] Encounter Daniela Mcqueen [facility] 1.2.840.114 350.1.13.10 4.2.7.2.686 [id number] [facility] 2020-03-08 14:00:00 2020-03-08 14:00:00 Outpatient DANIELA [facility] [id number] [facility] 2019-12-14 00:00:00 2019-12-14 00:00:00 Aleah Unger [facility] 1.2.840.114 350.1.13.10 4.2.7.2.686 [id number] [facility] 2019-06-09 00:00:00 2019-06-09 00:00:00 Refpro Unger [facility] 1.2.840.114 350.1.13.10 4.2.7.2.686 [id number] [facility] 2019-06-06 00:00:00 2019-06-06 00:00:00 Aleah Unger [facility] 1.2.840.114 350.1.13.10 4.2.7.2.686 [id number] [facility] 2019-05-29 00:00:00 2019-05-29 00:00:00 Aleah Tranmeeta [facility] 1.2.840.114 350.1.13.10 4.2.7.2.686 [id number] [facility] 2019-05-27 00:00:00 2019-05-27 00:00:00 Aleah MillerFabianTremayne [facility] 1.2.840.114 350.1.13.10 4.2.7.2.686 [id number] [facility] Results Test Description Test Time Test Comments Results Result Co mments Source [facility]2025-[facility] 11:43:27* Test Item Value Reference Range Interpretation Comme [facility] MAGNESIUM (test code = 1247498366) 1.8 mg/dL 1.7-2.4 Lab Interpretation (test cod e = 20345-0) Normal [facility] [id number] 15:18:03* Test Item Value Reference Range Interpretation Comme nts Case Report (test code = 1842409072) Surgical Pathology ?Case: [id number] ? Authorizing Provider: ?Marbella Vale MD ? Collected: ? 12/07/2024 0857 ?Ordering Location: ? ? [facility] ? ? ? Received: ?12/07/2024 1019 ? Center [facility] ? Pathologist: ? Christina Almonte MD ? Specimen: ? ?STOMACH, 1 Gastric bx to eval for H. Pylori ? Final Diagnosis (test code = 7602837196) x7lybBDyEIRel3yvKMOobG FuZzEwMzNcZnRuYmpcdWMx KZcqktAaROxihAphLAG9ZF BoDD6alUtdzDx6eWwlBHCp haI4kCYcTYsrp4byLEK1i3 fqxxjpKXUyDZnkQf3zwTUj xWqaXqFyXDIuPXj0wN57FR JzsZ6qnPZzCTi7KJArjJDr zbSpExSzIAZsnIVmqPH3VL VxVV3efivfNYztUNdmLIIo ysK5PRQxkQIjD5IiWZZpBP 1pznulPCB4HEmfQQYmXCZ0 KaGyLIIsw4Fcykb6WlWloW FyZFxwbGFpblxmczIwXHBh ygPAObWLDD3JJPPNOLPLIJ 8OU5m5QJMafwVzSNBfTADQ PYWZBcdHXC6OW02PPWDRDI LPZRFAOk7NEZRfG7GCEWTB VElTXHBhciAgICAgLSBOTy YCY1RXNrgSRXQANtLWLfSH O4NKOfXUUT8SWXOWNRBKZM EgSURFTlRJRklFRFxwYXIg HGXkEJ0pSb1tWS7tLVzSP8 YKIS4YX5OAXVAXPuALRTCM BPbLGSMGYJjBKBGmL24VUU VOVClccGFyXHBhclxwYXJ9 q0rluGEyAUFdsKGuVkYfUU QfQBFbd3eaKSCmzYVdFlRr MzNcZnRuYmpcdWMxXGRlZm Emq6rxo112nKFqo5beASSu FoQ9oASdUQQhlMcfybr5fH ovLgCyBSGmm0ddujYdVyXm ZUYrLBHiFMGtyBZaR062LN DkRAcef7kjv6UeZXHxlKXt n2Q7WNUYJWemMfRjE479k1 swp8ebzdQejZO7YJPyKUL4 PMggvwFxlhQ2PNojsRVwPb N7CZpjehBbWFqkmbIykpWp Sii9HENuI736FYB3kErdv9 msWJM5FQYqPMUsXesxSl5g iDCgH737FWYxINSRYUCdfK o8MZNkswBhvuIokQJMj346 V610t4dsDWVupbUzfJzIsk hdp0aaI056SIFeiZRkpcDb FqDuZZPcxTGseKJ9MXQqAO 4uxwhpUYmbIPnoBRLoxcT2 ZQYccRUaK8ElZUUmPZ6bvd cnWFX0HCtmLFLmONI7RbFd LHRsi8Ukaov1XkCcam9qyi 19NKU3m5QmnPynSXU8DRO6 QcMnGy0lcKSrXRUpNK6xCs ZdtWKpACEhig33qPssPExb ewMmkK2yXqYgIYHuyKGfZU XuIF1jxNTdPWGjjE0pubdw XHBnYnJkcmhlYWRccGdicm CvEk7tsZpoVVE2KIdzT3en tM0sVzO7AAxtA8wznL8pTE n3NCmhjNW4XKNrjS3tIF6y xxwzr3gvFSojYSjsIGKwob V5zhU6TOBtnTGmR4KkmU5n FYQtRC0ypewna2siCRS3FA uyMZJaUAZ7GgFeGAMeu9Wd jhc2XoHdh6WqcILvOUaiH1 4im695HDAtwkKfY7rrsEDb euwpcCJaasapDAlnzcH1PX FsXHBsYWluXGYxXGZzMjBc bGFuZzEwMzNcaGljaFxmMV vkEcCzCSZwQWzyM2lgBxDw V1PwKOTsXlWaxBCsGVtrpX G8RPDgYLCxs11pqOr7KXPn rawry8PmSUXcuKMxiRYonI 0yueYvj9uaWOElSVOdNPKh O9OnZEV5yLAoNSZitMGgwG D0XE1kwhNbZQ3aKWYuOeze cmVzaWRlbnRzLCBmZWxsb3 ltJT3nARFavFjbyP3kyJO7 DSIoj4rszERceBWrq7vvt5 UgbmFtZShzKSBtYXkgYXBw KYSsIO4hKEFoeCFuubWhu7 E7WvarpILlawpzOjfmolM3 QGfiauatUTUxAJfoX8xgNi FvPYYvdXhuDohzu1SwKYIo XGZzMjhccGFyfX0= Final Diagnosis Comment (test code = 7134824986) k9vhaJPyQSMcwSKnFRjfDj ztqtTfUWJjkPLgQ6Siljwc TFkgUU0nTZ9yvAcinJAkaS BvDTYdYnLdf4dtt500lIKx k9hiCGSFsjmhqLe4iMuvT3 9vg7D2NxefW0ujVPUfZLwc MUTkEVgraEVxNBb0DWInnN VydzEyMjQwXHBhcGVyaDE1 LHSeKL6xmfmzPWgiOLssKR OyheF0CXHroUSaQ1QqVDIk ZS6whhflXFE1LYppRLCcLE K9RcVcWJMzj1Rgigv4HcDx cGFyZFxwbGFpblxmczIwIE dzuNNys2I0ECevXFYxktJT VqM7aH8dwIFjUELma8TiKZ Eke74spCaaPTDki9XzPBCy BRdhMM9iJ9C5lVIlSxqvCI CzlYHnPPXqLDBGuYpqV29e kNAusQEso3hoxgTgdURef4 ZdxAG0XWVuDXLjdSl0bSC2 XGNmMCAgXHBhclxwYXJ9 Clinical Information (test code = 2381333957) Chiquis Gaming is a 74 year old female hx of gastric ulceration1 Gastric bx to eval for H. Pylori Gross Description (test code = 4278109464) w6lwjTGvDVEeqDVFPFH1HM OvHT5ahLxiaLv2nDptOQYl bwS1kPXiLOgwv1sjWQN5d7 lqdnXNRctjRNEoWL6aMSdc LNQrIG8yDqAhEUAeZgRxIS BhcGVydzEyMjQwXHBhcGVy lSW6BIDfUD9mwympHXkdTF llBWHoabD8DRGkpYJpK5Oj IETaIT2xyonpULY1ITCSNg tdBd1nsHJnkVswYlFxApGo RBLdJHUwJUUeh5vqrbJQhg nuuXo9aY9Jq3djd4xxapQt bDtccmVkMFxncmVlbjBcYm d2HHG9hC0WPIQzE5DhAB9L n5isRCRcaQLjJXG1HApqt4 rtZXvyURP7WSEsUBTkNYSp QX6PSlQoKYG0KvTkCIJaHo W9OTp4IZDATDPiNOS1DhQ5 APK0GWz5LCGzPT9iZHwjlM NvRIcnVulmLMqyJ405BHks HHCiQ2GjR2QhOQihOmReMU icQTJlSBDtKYtmTUSlD4LD JFDrTNayUQS6FXBmRHp1EF j1UN7CSvXeYSEzJCZ2QUId KFYkMNa7TZndQT9WXCTsGw N7EJJ1WtFtLIWcGGtyYTx1 IDIgXFxzcyAzIFxcZmwgXF jpF33glQWyKXRGHjkljTQb blxmczIwIFNQRUNJTUVOIE RblFSfP3psAoBjDbjmWISh DQpccGFyZCANClxwbGFpbl xsdHJjaFxmczIyXGVwaWNO CRV0RB0dCFAHTlhesZOhUU UhWZwoU8FfNRPzMiOhF2Qi U7xjXV5bGQJojwUqRKNumN IpWCEywnXyy9BgZYjmuuUk YWJlbGVkIHdpdGggdGhlIH ByzQltpcJzgrUuVT2lSJPD TRVniX3lQCMtJXQkLRR6xy aeYGKXDZM6KRjrPg0uCAox ZHF4lR7ygGRvCC0oCZIokh Wtm6DdAX9mPARnSBKxC7Me H9L8DZOkFoL4JQ0ibFPwhS 22KUeeyeQmbChfrcTvn3R5 DBOif4K3USHbntZooECmuN WnKZFlLLS8QTDkIGV3QRXt MnPunYnnqeBaO2edQhRmco 5eOTY4BWMpWJV4vrRaVbCl V16yKQqhrNFzXPusMOFihB LtaoJmAJLeaw13Z1xmHCUg qO5im0alRhWhTHYpFKJleM EzkDT5KJDwcD9gvO31auXq pyDYUV8hxHDtSA9OTDBcbv ANClNhbGFtIFphaWRhbiwg VGNuDHLGR5HiCLZzyBZzkM XqxBrrDalufDT4KGcqLssb lZ8kxUOFBGMTOjbLFfrvmt UhJV8JVN6CWaCAYA82EqOh TSMbrDM6JIZTQYkgtZd7RG f9nNvoLavohgTzgNSaAiMO kD8yAhZtUvZfRvAsZIG7Ur E2VMHdFFtsh6uhOHSyCSig i5CeTNsGOOVQDT8WRC5zgS Z8HYnIH4QAHFsqGSRdIIG7 CWjPSEDLcSC6uGneuIr3j7 xpuMIgs6f7EBmzUOR9fXmv bGFpblxsdHJjaFxjZjFcZn GsGExbIDMbVCnzh2XaKOdi cGljWHNhMzAgDQpcZXBpY0 8ke8TDg8Vwn5pbzSzqw2Nx oZXbCT80TKNwyTLvDPQ8OH 5kfVxwYXIgDQpccGFyZCAN ClxjZjBcZnMyMiANCn0= Disclaimer (test code = 5404667328) z4pxuIDqOROmb3hoQBUaxC FuZzEwMzNcZnRuYmpcdWMx RKqsmvTlNIwhi7KoL9ZcTg AwMFxhbnNpXGRlZmxhbmcx MRKoPSX3jaVhLDHcQLlrZJ CpDPfxXm1ydICbbFldWjSr UPEyn8kojwTLTVmxSuMoP9 42LFHjURasu1csr9XsTXBr zDNks7K5AHHZuroieRk3dM xkA50ib6E4EyofT7mpUMZi RURvM2LdWV1zGNMaZxm5NV H8BEI9QFWsZUWfZ2PlGW8w INAbhLBtXQp5e0jteTfiSD UgOHG4z1woTQgnklPoJB9m fg3uzBr7e3wgxwOmMUQxYP AugMMQMLTyI6LpvPadZb5u eKu7pMloZfriKRA2Xyx7HJ 1zum11ava7zAhxBSJbwkho YkF2CQjxLBUkqiclQLa0JG qoFPAadHZ0UEVjbRYfE7Yj GAHxXO2kzlw9XTR4EQneYE CbWfM2EBCjfVYlKWAmrMzv YZgsm644LCM4KtQfNM3pB1 Mpa9P3kF1uwPPyVUIdgOFz PfRcUHNqya5voBVdMXlik4 IkGOG3jaB2bZCpbKQsTLNk HU74Ywbtk5LyUqnfy3AhO2 3hiWH8UZonb4saRZ2iJgT2 lbSzDBset3oijD4zBgD1NK qbMO7zJV0zGJUqrM5qcgeh XHBnYnJkcmhlYWRccGdicm IuDe7oeGpfTKS1ELmzR5tb qA6pQnA6SYquI0skkR8kVR n2GMilhJE9YXJrrE4uAA1x spjvv0xaJMobUZxgQXTuhh J9inL8QGIakPLoT1PvgU5z LYJoAG0luipgt6rcJIV4TP gzYECfEYR0RvCgQKWbu5Wg dmw2LeQxl1UmmACwAKkiK9 9yk098AGWtmnFcY6exxGAe lbjroYHjsnivVJvxmlW0CG BshxSax8KpNFWcWSC1LSxo RCrwsILvFUOlxXkml6ssQ8 RscGFyXHBsYWluXGYxXGZz MjBcbGFuZzEwMzNcaGljaF efKJlcAeBfNJCyZZmxH5ap ZnNlI1FfYRTjBjTntVRsY9 ggVGhpcyByZXBvcnQgbWF5 XRliU5e2MTPzkePntAu3gh WiZrRuKJXyHGT8OCdnvUOh SBHuc4YeaujrzJQeEl1rmX OmPNZevM7xLEUbSFMsKVnm LL4jjWo0OUAOkJCpkIFjAy LDXETrET32viByBBZXhlsm k4N6CYxvCGIva7SfeVVuI5 twe1MyUVNhe46zQB8ib9V9 r2erEMS2BT1zi0HeQIQorZ OngYOaIAUve8Tnvfucl0Qi PAIihjJyx1LuLBMvmlRknR OvAKRhsoMeyf0iufZzMJUf MMAxL3EdrlgdmBdhgcHnIL Jgvm7oepQzUMO1JWPQVHCy GDYgq3IhzH5sjUYFQSB0nQ Ciab5hpkPJrEOkBRMsxx03 ZJReUR3wE7smONQzFYNdlc RgtEKqj0HyHTOfwVH0hBSt AR9ZGwDJa69rBLCdBUZFsp KqTRWjqPhfuHF9qkL5dI4q IChGREEpLlx+IFRoZSBGRE DaRW8muzCyp9LhbkTaqAie RCIxjHQke1QbsXMat0FwmG pgu1QpeTRrhACcHY8yWOZi clxwYXIgVVRNQiBMYWJvcm G8i0UcWMElERJeGHU8cYjo rzl7QJTtyW0xHCFkJ9gett qfIZdpSVJaw6PzxN1igKXY jMFoh3HzjCJuaCGNtGOvRE 5wbnGnFAaXIAmKOHY2vhOc XKMel7CcDAwnH4ciX54kpU yhiEs3rYD2XXY2tL9iXvw+ IFxwYXJccGFyIEFwcHJvcH KxCLNwzFssvvZdI0WytcGv eE6bxQWoeaYtIS5gRU7sH7 X2qNOlRTVbifChx3ymZTwj dmUgYmVlbiByZXZpZXdlZC Ckf0XiEAvdNTV9COozugDf bmNsdWRpbmcgSCZFLCBTcG NqjLXuKYG3ANmosrNwfiEm LO1pvP3ccLapxH2aeQQwzN T7qabmXEGnNCGisKshRXQs TW0grVrlgL9mPwVyToByPA phSK4yRKJiZ7brtGUqZGVh XACkZ0yyPtVcrW7zrJsuLH xjZjJcZnMyMFxwYXJccGFy XHBsYWluXGYxXGZzMjBcbG FuZzEwMzNcaGljaFxmMVxk QyCrUEBbOMuzH6aiHsBuZ1 MyTRYiWuMreIMvT0myCCfb YZL1AJNdQR6xqOIxJC62rF Hvy0nvREqjhRnlzn5iK77x sRWnHVtgkOzuJSCed90ax1 MpVLLzkkIfim8zKDVmkxQ1 tI2dYWUkyMqzIBPdsPPaGQ Cwy0YcVPpizMYtauRmEKss FAHoNIKttINkljN5epYvnj EndnHoCWEncKymUVSop1So LTKrVZknx3Ytfv8xkDMvZC NeepAYmOfzwDNcpT3lO5Mi CCDbKCMgif8oJXHrvU3tRU wzq8HzotyzJSGgXLKdWSUy zyJrla4qFKBagUITEI2WJQ kedWPnn6BnvaKaS1gKIBQ9 NUQwNjYwMjgxKSBleGNlcH OzIRRfdl07UWHilL8fqEfn CHBzbU3lkZ6qfSqwmV6jFr MiWtCmKZljND4jOGAiB3bv zZOuAZZiVPTjR5hxKjVqtW 9jaFxmMVxjZjJcZnMyMFxw YXJ9fQ== Embedded Images (test code = 1028253915) [facility] CenterIR Insert indwelling tunneled pleural 2024-12-10 06:47:50PROCEDURE: Right-Sided Tunneled Pleural Catheter Placement Procedural PersonnelAttending physician(s): Kaylee Oakes, MDResident physician(s): None Pre-procedure diagnosis: Recurrent right-sided malignant pleural effusionPost-procedure diagnosis: SameIndication: Malignant pleural effusionAdditional clinical history: History of breast cancer with bony metastasis Complications: No immediate complications.[facility] CenterXR Chest 1 [id number] 18:04:37ORDERING PHYSICIAN: MANJINDER AGUAYO. HISTORY: pleural effusion TECHNIQUE: AP COMPARISON: 12/04/2024FINDINGS: Lungs: ?Right basilar consolidation obscuring the hemidiaphragm is similar. Pleura: ?Calcified pleural plaques are suggested. There is a small rightpleural effusion. No pneumothorax is identified. Mediastinum/Jannet: ?No masses or adenopathy. Heart: ?The heart is not enlarged. 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 A lefthumeral oscar and interlocking screws is noted.[facility] CenterXR Humerus 2 vw [id number] 18:42:25 EXAM: XR HUMERUS 2 VW LEFT HISTORY: 74 years old Female with status post humerus shaft fracture IMNCOMPARISON: CT left humerus on 11/17/2024 FINDINGS: Radiographs of the left humerus demonstrate interval dynamic intramedullaryrod and screw fixation of the proximal diaphysis humerus fracturenear-anatomic alignment. The glenohumeral joint alignment is maintained.Endosteal scalloping in the mid-distal diaphysis of the humerus isvisualized. Metastatic lytic lesions in the coronoid process, trochleaandradial tuberosity are better visualized in the CT left humerus on the11/17/2024. Diffuse soft tissue swelling. [facility] CenterCT Angiogram abdomen/ttugul1298-36-38 16:26:22 EXAM: CT angiogram of the abdomen and pelvis-GI Bleed HISTORY: GI bleed, lower TECHNIQUE:3.75 mm axial images are obtained from diaphragmatic domes tosymphysis pubis before and after intravenous administration of 80 mL ofIsovue-370 using GI bleed protocol. Images are obtained in arterial, uihprfdza05 seconds delayed phases. Sagittal and coronal reformation isscattered. COMPARISON: None Radiation Dose: DLP of 3514 mGy-cm. FINDINGS: CT ANGIOGRAM: There is no evidence of acute contrast extravasation in the small bowel cami the large bowel. No pooling of contrast is seen within the colon. Scattered atherosclerotic calcifications are noted in the aorta. Noaneurysmal dilation is noted. The celiac artery as well as the superiormesenteric artery are patent. Portal vein is patent and is normal incaliber. Conventional venous anatomy is noted. CT SCAN OF THE ABDOMEN AND PELVIS Areas of atelectasis are seen in the right lung base. Small tomoderate- sized right pleural effusion is noted. Heart size is normal. Righthemidiaphragm is elevated. Liver is normal in size shape and appearance. No abnormal enhancement isidentified within the liver. A well-circumscribed low-density lesion ispresent in the right lobe of the liver segment 4 measuring approximately1.9 cm. This lesion does not demonstrateany significant postcontrastenhancement but has CT density higher than that expected from a simplecyst. Gallbladder is well distended. No gallstones are seen. No bile ductdilation is noted. Pancreas demonstrates normal enhancement. No ductal dilation is seen Spleen is normal in size. A small accessory spleen is present. Adrenal glands are normal. Kidneys are normal in size. No renal stone or hydro nephrosis is noted. Asmall hyperdense lesion is seen in the interpolar zone of the left kidneymeasuring approximately 9.4 mm. An enhancing lesion is seen in theinterpolar zone of the right kidney measuring approximately 1.7 cm. Thislesion demonstrates heterogeneous contrast enhancement with some was houtnoted on the delayed images. No hydronephrosis is seen. There is no free fluid or free air in the abdomen. No enlarged lymph nodesare seen in the retroperitoneum or in the mesentery. There is no evidence of bowel obstruction. Large volume of stool is seenthroughout the colon. Evaluation of the pelvis is limited secondary to streak artifact related toright hip prosthesis. Uterus is removed. Urinary bladder is grossly normal. Changes of right hip of the posterior seen. Diffuse sclerotic and lytic lesions are seen throughout the imagedskeleton.[facility] CenterPrepare Packed RBC (in units), 1 Bwtul5040-71-32 16:17:27* Test Item Value Reference Range Interpretation Comme nts Cross Match Result (test code = 4409) Compatible ISBT Blood Type Code (test code = 444680) 5100 Unit Blood Type (test code = 4410) O Pos Unit Number (test code = 4411) [id number] Blood Expiration Date & Time (test code = 845421) [id number] Status Information (test code = 4412) Issued Product Identification (test code = 4413) Red Blood Cells Product Code (test code = 4414) [id number] Performed at [facility] B Laboratory Services - [facility] Blood [address] [place] [id number] Free: [phone] No. [id number] [facility] CenterBasi Metabolic Panel (NA, K, CL, CO2, GLUCOSE, BUN, CREATININE, CA)2024-12-05 11:47:12* Test Item Value Reference Range Interpretation Comme nts NA (test code = 5601471354) 132 mmol/L 135-145 L K (test code = 3804796251) 3.6 mmol/L 3.5-5.0 CL (test code = 9881331604) 96 mmol/L 98-108 L CO2 TOTAL (test code = 6544233683) 25 mmol/L 23-31 AGAP (test code = 3676732182) 11 2-16 BUN (test code = 8160555285) 29 mg/dL 7-23 H GLUCOSE (test code = 7483111653) 83 mg/dL 70-110 CREATININE (test code = 2160-0) 1.01 mg/dL 0.50-1.04 CALCIUM (test code = 5458255862) 9.1 mg/dL 8.6-10.6 eGFR (test code = 52491-1) 58.2 mL/min/1.73m2 CKD-EPI eGFR (2020). Assuming creatinine has been stable day-to-day for at least three months, the eGFR indicates Category G3a (45 - 59 mL/min/1.73 m2) Lab Interpretation (test code = 90494-5) Abnormal [facility] CenterMagnesium2025-03-18 11:47:12* Test Item Value Reference Range Interpretation Comme nts MAGNESIUM (test code = 8392381415) 1.7 mg/dL 1.7-2.4 Lab Interpretation (test cod e = 07647-4) Normal [facility] without Gbdh3415-64-52 11:42:50* Test Item Value Reference Range Interpretation Comme nts WBC (test code = 6690-2) 5.92 4.30-11.10 RBC (test code = 789-8) 2.09 3.93-5.25 L HGB (test code = 718-7) 6.7 g/dL 11.6-15.0 L HCT (test code = 4544-3) 21.2 % 35.7-45.2 L MCH (test code = 785-6) 32.1 pg 25.9-32.8 MCV (test code = 787-2) 101.4 fL 80.6-95.5 H MCHC (test code = 786-4) 31.6 g/dL 31.6-35.1 PLT (test code = 777-3) 75 166-358 L MPV (test code = 05140-9) 11.2 fL 9.5-12.9 RDW-CV (test code = 788-0) 17.2 % 12.0-15.5 H RDW-SD (test code = 19302-2) 61.9 fL 39.0-49.9 H NRBC x10^3 (test code = 3175099720) 0.53 See_Comment [Automated Meal [employer]icketa ge] The system which generated this result transmitted reference range: 10*3/?L. The reference range was not used to interpret this result as normal/abnormal. NRBC/100 WBC (test code = 2585262785) 9.0 0.0-10.0 IPF % (test code = 0335398980) 3.0 % 1.3-7.7 Platelet count measured by fluorescence method. Lab Interpretation (test code = 60824-6) Abnormal [facility] CenterLactate [id number] 21:58:32* Test Item Value Reference Range Interpretation Comme nts LDH (test code = 4637320357) 506 U/L 120-246 H Slight hemolysis Lab Interpretation (test code = 15020-8) [facility]normal [facility] Center[facility] without [id number] 21:53:29* Test Item Value Reference Range Interpretation Comme nts WBC (test code = 6690-2) 6.23 4.30-11.10 RBC (test code = 789-8) 2.23 3.93-5.25 L HGB (test code = 718-7) 7.3 g/dL 11.6-15.0 L HCT (test code = 4544-3) 22.5 % 35.7-45.2 L MCH (test code = 785-6) 32.7 pg 25.9-32.8 MCV (test code = 787-2) 100.9 fL 80.6-95.5 H MCHC (test code = 786-4) 32.4 g/dL 31.6-35.1 PLT (test code = 777-3) 75 166-358 L MPV (test code = 17341-1) 10.1 fL 9.5-12.9 RDW-CV (test code = 788-0) 17.2 % 12.0-15.5 H RDW-SD (test code = 80110-3) 61.2 fL 39.0-49.9 H NRBC x10^3 (test code = 2122545654) 0.32 See_Comment [Automated [employer]] The system which generated this result transmitted reference range: 10*3/?L. The reference range was not used to interpret this result as normal/abnormal. NRBC/100 WBC (test code = 3494621856) 5.1 0.0-10.0 IPF % (test code = 7865927364) 4.0 % 1.3-7.7 Platelet count measured by fluorescence method. Lab Interpretation (test code = 39801-8) Abnormal [facility] 1 VIEW, [place], [place] [id number] 21:16:32EXAM: XR CHEST 1 VW COMPARISON: Chest radiograph dated 12/03/2024 HISTORY: 74 years old Female with Post R thoracentesis Chest xrayimmediately post procedure.[facility] 2024-12-04 20:07:17EXAMINATION: ULTRASOUND-GUIDED RIGHT THORACENTESIS. HISTORY/INDICATION: 74 years old Female is herefor right thoracentesisWith micropuncture. Need INR ATTENDING: Dr. Kaylee Oakes. SEDATION: The patient did not require conscious sedation for the procedure. TECHNIQUE: The risks, benefitsand alternatives were discussed and informedconsent was obtained. Prior to beginning the procedure,Gordon Protocolwas performed to confirm the identity and the planned procedure. ?Maximumsterile barriers including cap, mask, hand hygiene, sterile gloves, sterilegown, large sterile drape and cuta neous antisepsis were used. The patient's right chest was examined with ultrasound and free flowingpleural fluid was identified. The skin overlying this area was anesthetizedwith 1% lidocaine. Using real-time ultrasound guidance a 21-gauge needlewas advanced into the pleural space, subsequently, microwire was passed andneedle was exchanged for 5 Cymraes one-step centesis sheath. Approximately 1000cc of serous fluid was drained. Samples were sent forrequested labs. At the conclusion of the procedure the catheter was removedand a sterile dressing applied to the site. ESTIMATED BLOOD LOSS: Minimal. CONDITION: Stable. DISCHARGED TO: Patient care division. FINDINGS: Ultrasound demonstrated a mode rate amount of right-sided pleuralfluid.[facility] WITH [id number] 01:28:05* Test Item Value Reference Range Interpretation Comme nts WBC (test code = 6690-2) 5.28 4.30-11.10 RBC (test code = 789-8) 2.34 3.93-5.25 L HGB (test code = 718-7) 7.5 g/dL 11.6-15.0 L HCT (test code = 4544-3) 24.4 % 35.7-45.2 L MCV (test code = 787-2) 104.3 fL 80.6-95.5 H MCH (test code = 785-6) 32.1 pg 25.9-32.8 MCHC (test code = 786-4) 30.7 g/dL 31.6-35.1 L RDW-SD (test code = 81625-1) 64.9 fL 39.0-49.9 H RDW-CV (test code = 788-0) 17.5 % 12.0-15.5 H PLT (test code = 777-3) 66 166-358 L MPV (test code = 64266-6) 12.1 fL 9.5-12.9 IPF % (test code = 1239715163) 4.0 % 1.3-7.7 Platelet count measured by fluorescence method. NRBC/100 WBC (test code = 0926940722) 4.7 0.0-10.0 NRBC x10^3 (test code = 8764858242) 0.25 See_Comment [Automated messa ge] The system which generated this result transmitted reference range: 10*3/?L. The reference range was not used to interpret this result as normal/abnormal. GRAN MAT (NEUT) % (test code = 770-8) 69.2 % IMM GRAN % (test code = 0502708705) 9.30 % LYMPH % (test code = 736-9) 12.3 % MONO % (test code = 5905-5) 7.6 % EOS % (test code = 713-8) 0.8 % BASO % (test code = 706-2) 0.8 % GRAN MAT x10^3(ANC) (test code = 0141812349) 3.66 10*3/uL 1.88-7.09 IMM GRAN x10^3 (test code = 7657028436) 0.49 10*3/uL 0.00-0.06 H LYMPH x10^3 (test code = 731-0) 0.65 10*3/uL 1.32-3.29 L MONO x10^3 (test code = 742-7) 0.40 10*3/uL 0.33-0.92 EOS x10^3 (test code = 711-2) 0.04 10*3/uL 0.03-0.39 BASO x10^3 (test code = 704-7) 0.04 10*3/uL 0.01-0.07 TOXIC CHANGES (test code = 803-7) Present A Lab Interpretation (test code = 57124-1) [facility]normal [facility] [id number] 01:25:57* Test Item Value Reference Range Interpretation Comme nts NT-proBNP (test code = 73731-5) 712 pg/mL <=125 BERNARDINO (test code = BERNARDINO) Result Indeterminate-Consid er causes of NT-proBNP elevation other than Heart failure such as acute coronary syndrome, pulmonary embolism, pulmonary hypertension, sepsis, stroke, and renal dysfunction. Lab Interpretation (test code = 26043-8) Abnormal [facility] CenterTROPONIN [id number] 01:25:42* Test Item Value Reference Range Interpretation Comme nts TROPONIN I (test code = 6691017697) 0.008 ng/mL <=0.034 BERNARDINO (test code = BERNARDINO) Reference (Normal) Range (defined by the 99th percentile reference limit): <= 0.034 ng/mL Note: Cardiac troponin begins to rise 3-4 hours after the onset of ischemia. Repeat in 4-6 hours if the sample was drawn within 3-4 hours of the onset of the symptom and found normal. Diagnosis of myocardial injury is made with acute changes in cTn concentrations with at least one serial sample above the 99th percentile upper reference limit (URL), taken together with the patient's clinical presentation. Biotin has been reported to cause a negative bias, interpret results relative to patient's use of biotin. Lab Interpretation (test code = 51843-4) Normal [facility]. METABOLIC PANEL (31631)2024-12-04 01:25:17* Test Item Value Reference Range Interpretation Comme nts NA (test code = 7427792906) 134 mmol/L 135-145 L K (test code = 3342710354) 4.0 mmol/L 3.5-5.0 CL (test code = 0348970782) 97 mmol/L 98-108 L CO2 TOTAL (test code = 6516528532) 29 mmol/L 23-31 AGAP (test code = 4363132222) 8 2-16 BUN (test code = 9744856691) 26 mg/dL 7-23 H GLUCOSE (test code = 6282352294) 95 mg/dL 70-110 CREATININE (test code = 2160-0) 0.93 mg/dL 0.50-1.04 TOTAL BILI (test code = 4393604433) 1.6 mg/dL 0.1-1.1 H CALCIUM (test code = 4137066292) 10.6 mg/dL 8.6-10.6 T PROTEIN (test code = 2547524364) 6.9 g/dL 6.3-8.2 ALBUMIN (test code = 0691267342) 4.0 g/dL 3.5-5.0 ALK PHOS (test code = 7437398638) 270 U/L 34-122 H ALTv (test code = 1742-6) 35 U/L 5-35 AST(SGOT) (test code = 7917712941) 84 U/L 13-40 H eGFR (test code = 52626-3) 64.2 mL/min/1.73m2 CKD-EPI eGFR (2020). Assuming creatinine has been stable day-to-day for at least three months, the eGFR indicates Category G2 (60 - 89 mL/min/1.73 m2) Lab Interpretation (test code = 76495-7) [facility]normal [facility] 1 [id number] 23:07:26EXAM: XR CHEST 1 12/03/2024 5:18 PM HISTORY: 74 years old Female with dyspnea TECHNIQUE: PortableAP view of the chest. COMPARISON: Chest x-ray dated [facility]/2024[facility] [id number] 21:51:00Pricila Davis MD ? ? 12/04/2024 11:14 AMCritical Care Performed by: Pricila Davis MDAuthorizedby: Pricila Davis MD ?Critical care provider statement: ?Critical care time (minutes): ?45 ?Critical care time was exclusive of: ?Separately billable procedures and treating other patients and teaching time ?Critical care was necessary to treat or prevent imminent or life-threatening deterioration of the following conditions: ?Respiratory failure ?Critical care was time spent personally by me on the following activities: ?Development of treatment plan with patient or surrogate, evaluation ofpatient's response to treatment, examination of patient, obtaining history from patient or surrogate, ordering and performing treatments and interventions, ordering and review of laboratory studies, ordering and review of radiographic studies, pulse oximetry, re- evaluation of patient's condition and review of old charts ?Care discussed with: admitting provider ?Comments: ? Due to a high probability of clinically significant, life threatening deterioration, the patient required my highest level of preparedness to intervene emergently and I personally spent this critical care time directly and personally managing the patient. This critical care time included obtaining a history; examining thepatient; pulse oximetry; ordering and review of studies; arranging urgent treatment with development of a management plan; evaluation of patient's response to treatment; frequent reassessment; and, discussions with other providers.This critical care time was performed to assess and manage the high probability of imminent, life- threatening deterioration that could result in multi-organ failure. Itwas exclusive of separately billable procedures and treating other patients. [facility]FL [facility] OR(non-reportable)2024-11-21 18:49:42 These images do not require a Radiology diagnostic report.[facility]FL Time OR(non-reportable)2024-11-21 18:49:42These images do not require a Radiology diagnostic report.[facility] Oggmlazzcj3269-85-98 17:29:00Robert Hernández CRNA ? ? 11/21/2024 11:51 AMIntubationDate/Time: 11/21/2024 11:29 AMUrgency: elective Airway not difficult General Information and Staff Patient location during procedure: ORPerformed: resident/SUPERVISOR [employer] Performed by: Galle, Robert, CRNAAuthorized by: Casper Robles MD ? Indications and Patient ConditionIndications for airway management: anesthesia and airway protectionSpontaneous Ventilation: absentSedation level: deepPreoxygenated: yesPatient position: sniffingMILS maintained throughoutMask difficulty assessment: 2 - vent by mask + OA or adjuvant +/- NMBANo planned trial extubation Final Airway DetailsFinal airway type: endotracheal airway Successful airway: ETTCuffed: yes Successfulintubation technique: video laryngoscopy (Agar)Facilitating devices/methods: intubating styletEnd otracheal tube insertion site: oralBlade size: #3ETT size (mm): 7.5Cormack- Lehane Classification: grade I - full view of glottisPlacement verified by: chest auscultation, capnometry and palpation of cuff Cuff volume (mL): 7Measured from: lipsETT to lips (cm): 22Number of attempts at approach: 1Ventilation between attempts: noneNumber of other approaches attempted: 0 Additional CommentsElective video laryngoscopy. Eyes taped prior to placement, smooth, atraumatic, dentition and lips unchanged from pre-op.[facility] CenterNerve [id number] 17:23:28Jaida Garcia MD ? ? 11/21/2024 11:25 AM Nerve Block Procedure: Supraclavicular Nerve Block Patient Location: HoldingLaterality: LeftSurgical Anesthesia: Post Op Pain: Start Time: 11/21/2024 11:23 AMEnd Time: 11/21/2024 11:23 AMPost Op Pain Management requested by surgeon per surgical: Progress NoteAnesthesiologist: Jaida Garcia MDPerformed by: anesthesiologistPreanesthetic timeout completed prior to procedure: patient identified,IV checked, site marked, risks and benefits discussed, surgical consent, monitors and equipment checked, pre-op evaluation, timeout performedInformed consent obtained patient wishes to proceed: yesPatient Position: supineSterile Prep/Drape: YesMonitoring: continuous pulse ox, ECG and blood pressureInjection Technique: single-shotNeedle Type: StimuplexNeedle Gauge: 22 GNeedle Length: 3.5Number of Attempts: 1Technique: Negative aspiration, Ultrasound guided, Paresthesia technique and Intermittent aspiration during injectionSensory Effect: Adequate Medications Given: Regional:Bupiv 0.25% 20 mLEPI 1:200KUnNexus [facility] Hospital HoustonVitamin B6, [id number] 21:25:49* Test Item Value Reference Range Interpretation Comme nts VIT B6 (test code = 95576-7) 24.0 nmol/L 20.0-125.0 INTERPRETIVE INF ORMATION: Vitamin B6 (Pyridoxal 5-Phosphate) Pyridoxal 5'-phosphate measured in a specimen collected following an 8-hour or overnight fast accurately indicates vitamin B6 nutritional status. Non-fasting specimen concentration reflects recent vitamin intake. This test was developed and its performance characteristics determined by [employer]. It has not been cleared or approved by the [place] Food and Drug Administration. This test was performed in a CLIA certified laboratory and is intended for clinical purposes.Performed By: [employer] [place] [address] 12984Jhtncfremi Director: Simon Reza MD, PhDCLIA Number: [id number] [facility] CenterVitamin B1 (Thiamine), Whole [id number] 21:05:35* Test Item Value Reference Range Interpretation Comme [facility] Vitamin B1, Whole Blood (test code = 15744-2) 79 nmol/L 70-180 INTERPRETIVE INF ORMATION: Vitamin B1, Whole Blood This assay measures the concentration of thiamine diphosphate (TDP), the primary active form of vitamin B1. Approximately 90 percent of vitamin B1 present in whole blood is TDP. Thiamine and thiamine monophosphate, which comprise the remaining 10 percent, are not measured. This test was developed and its performance characteristics determined by [employer]. It has not been cleared or approved by the [place] Food and Drug Administration. This test was performed in a CLIA certified laboratory and is intended for clinical purposes.Performed By: [employer] [place] [address] [id number] Director: Simon Reza MD, PhDCLIA Number: [id number] [facility]XR Chest 1 [id number] 18:53:07EXAM: XR CHEST 1 VW COMPARISON: Chest CT 04/10/2020 and chest x-ray 2316 HISTORY: preop testing FINDINGS: Lines/Tubes: Lungs: Moderate to large right pleural effusion. No pneumothorax.Peribronchial cuffing. Hazy opacities in the right upper lung field withthe trachea superimposed centrally. Heart/Mediastinum: The cardiac silhouette appears upper limit in size. Bones and soft tissues: Osteopenia. Ill- defined permeative appearance ofthe right proximal humerus and right scapula and distal clavicle.Surgicalclips project over the left hemithorax.[facility] CenterCT Humerus left wo kryyitst2304-94-46 18:07:28EXAM: CT HUMERUS LEFT WO CONTRAST INDICATION: Bone mass or bone pain, humerus, aggressive features on xrayScan Entire humerus COMPARISON: CT chest, 04/10/2020 TECHNIQUE: Axial CT imaging through the left humerus was performed withoutIV contrast. Coronal and sagittal reformats were constructed and reviewed. FINDINGS: Noncontrast CT of the left humerus demonstrates a displaced spiral fractureof the left proximal humerus diaphysis. There is up to 14 mm posteriordisplacement of the distal fracture segment with 13 mm of craniocaudalforeshortening. There is subtle endosteal scalloping and, endosteallucencies in the adjacent bone fragment suggestive of pathologic fracture.There is extensive mixed lytic and sclerotic changes throughout thevisualized left rib cage, distal clavicle, scapula, acromion and lefthumerus suggestive of metastatic disease. Extensive lucent osseous lesions are seen throughout the posterior distalclavicle, acromion, scapula, humeral head, humeral tuberosities as well asthe proximal medial humerus metaphysis measuring up to 2.8 cm withscalloping and cortical breach along the medial proximal humerusmetaphysis. Cortical breach is additionally seen along the left posteriorclavicular osseous lesion. Additional lytic osseous lesions are seen in theproximal ulna adjacent to the coronoid process with volar scalloping aswell as in the proximal radial tuberosity with associated scalloping.Extensive osseous metastasis is seen the visualized left iliac crest.Multiple subacute to chronic nondisplaced left rib fractures of the leftmid and lower lateral ribs.Multiple solid pulmonary nodules are seen in thevisualized left upper and lower lobe measuring up to 6 cm. Breast andaxillary surgical clips are noted.[facility] CenterVitamin D, 25-OH 2024-11-15 01:24:02* Test Item Value Reference Range Interpretation Comme nts VIT D 25OH (test code = 20158-0) 64 ng/mL 25-80 BERNARDINO (test code = BERNARDINO) Deficiency: <20 ng/mLInsufficiency : 20-24 ng/mLOptimal: 25-80 ng/mL Lab Interpretation (test code = 43128-5) Normal [facility] CenterVitamin B12, [id number] 01:19:07* Test Item Value Reference Range Interpretation Comme nts VIT B12 (test code = 6673489957) 240-930 H BERNARDINO (test code = BERNARDINO) Biotin has been reported to cause a positive bias, interpret results relative to patient's use of biotin. Lab Interpretation (test code = 32617-8) Abnormal [facility] CenterThyroid Stimulating Jdgqutw3726-66-22 23:11:41 * Test Item Value Reference Range Interpretation Comme nts TSH (test code = 8602653264) 6.77 0.45-4.70 H Biotin has been reported to cause a negative bias, interpret results relative to patient's use of biotin. Lab Interpretation (test code = 76721-1) Abnormal [facility] CenterFree [id number] 22:57:59* Test Item Value Reference Range Interpretation Comme nts FREE T4 (test code = 5398738951) 1.50 ng/dL 0.78-2.20 Lab Interpretation (test cod e = 84916-6) Normal [facility] CenterTransthoracic echo (TTE)2024-03-23 02:46:06* Test Item Value Reference Range Interpretation Comme nts Height (test code = 8189953654) 63 in Weight (test code = 6343094494) 161 lbs Systolic BP (test code = 3742923568) 151 mmHg Diastolic BP (test code = 9452217713) 77 mmHg Heart Rate (test code = 1934454344) 64 bpm EF(Teich) (test code = 0494317942) 53.70 % LVIDD (test code = 7980962252) 4.60 cm LVIDS (test code = 0013063723) 3.30 cm Left Ventricular End Systolic Volume by Teichholz Method (test code = 3452119) 45.1 mL Left Ventricular End Diastolic Volume by Teichholz Method (test code = 5646604) 97.3 mL IVS (test code = 3377582337) 1.10 cm LVPWD (test code = 2608216237) 1.10 cm LVOT diameter (test code = 2134626601) 1.93 cm LVOT area (test code = 4113649762) 2.90 cm2 FS (test code = 5277486845) 28 % LA size (test code = 7908856102) 4.6 cm RVOT Proximal Diameter (test code = 7522338647) 3.20 cm ACS (test code = 7011335583) 2.11 cm Ao root diam (test code = 5428591854) 2.90 cm Aortic root (test code = 0019569726) 2.9 cm Ao root annulus (test code = 3503025819) 2.9 cm PW (test code = 3120308903) 1.10 cm 0.6-1.1 EF - 2D (test code = 39640506) 53.70 % Interventricular Septum Diastolic Thickness by 2D (test code = 5640918) 1.10 cm BSA (test code = 4307181321) 1.76 m2 TR Peak Aria (test code = 1965944347) 290.4 cm/s Triscuspid Valve Regurgitation Peak Gradient (test code = 9372823789) 33.7 mmHg E wave decelartion time (test code = 5948985451) 0.39 s MV Peak E Aria (test code = 3413541541) 71.3 cm/s MV Peak A Aria (test code = 3610233150) 105.9 cm/s E/A ratio (test code = 4206712184) 0.67 ratio MV Prop V (test code = 9344816918) 27.90 cm/s LVOT stroke volume (test code = 8407628786) 86.30 cm3 LVOT peak aria (test code = 9437137421) 127.9 cm/s LVOT mn grad (test code = 9404793519) 3.5 mmHg AV LVOT peak gradient (test code = 5110989211) 6.5 mmHg LVOT peak VTI (test code = 3467448964) 29.6 cm LV V1 mean (test code = 1796014446) 88.50 cm/s MR max PG (test code = 9347398540) 63.00 mm[Hg] MR max aria (test code = 3572636856) 396.90 cm/s Mr max aria (test code = 7559296239) 396.9 m/s Aortic valve mean velocity (test code = 6553381568) 106.9 cm/s Ao peak aria (test code = 4895253859) 173.2 cm/s Ao VTI (test code = 8960784142) 38.4 cm AV area by cont VTI (test code = 4695240180) 2.3 cm2 AV area peak aria (test code = 2646691906) 2.2 cm2 Ao max PG (test code = 8962336407) 12.00 mm[Hg] AV peak gradient (test code = 6255988374) 12.0 mmHg AV valve area (test code = 5550629042) 2.25 cm2 AV mean gradient (test code = 6301473085) 5.3 mmHg Radiology Study observation (narrative) (test code = 95895-4) BERNARDINO (test code = BERNARDINO) ?Left?Ventricle: Left ventricle size is normal. Normal wall thickness. Normal wall motion. Normal systolic function with a visually estimated EF of 55 - 60%. There is impaired relaxation. Normal left ventricular filling pressure. ?Right?Ventricle: Right ventricle size is normal. Normal systolic function. ?Tricuspid?Valve: Right ventricular systolic pressure is 35-40 mmHg. ?RA pressure is 0-5 mmHg. Left VentricleLeft ventricle size is normal. Normal wall thickness. Normal wall motion. Normal systolic function with a visually estimated EF of 55 - 60%. There is impaired relaxation. Normal left ventricular filling pressure.Right VentricleRight ventricle size is normal. Normal systolic function.Left AtriumLeft atrium size is normal.Right AtriumRight atrium size is normal.IVC/SVCIVC diameter is less than or equal to 21 mm and decreases greater than 50% during inspiration; therefore the estimated right atrial pressure is normal (~0-5 mmHg).Mitral ValveMitral valve structure is normal. Trace transvalvular regurgitation.Tricusp id ValveTricuspid valve structure is normal. Trace transvalvular regurgitation. Right ventricular systolic pressure is 35-40 mmHg. RA pressure is 0-5 mmHg.Aortic ValveTricuspid.Pulmon ic ValveNot well visualized.Ascending AortaNormal sized aorta.PericardiumThe pericardium is normal. No pericardial effusion.Study DetailsStudy quality was adequate. A complete echocardiogram was performed using 2D, color flow Doppler and spectral Doppler. The apical, parasternal, subcostal and suprasternal views were obtained. [facility] with Euhg8532-03-19 20:44:18* Test Item Value Reference Range Interpretation [...] g/dL 31.6-35.1 L RDW-SD (test code = 17464-3) 69.5 fL 39.0-49.9 H RDW-CV (test code = 788-0) 18.1 % 12.0-15.5 H PLT (test code = 777-3) 208 166-358 MPV (test code = 84523-0) 10.5 fL 9.5-12.9 NRBC/100 WBC (test code = 1085158785) 0.5 0.0-10.0 NRBC x10^3 (test code = 6374906550) 0.03 See_Comment [Automated messa ge] The system which generated this result transmitted reference range: 10*3/?L. The reference range was not used to interpret this result as normal/abnormal. GRAN MAT (NEUT) % (test code = 770-8) 66.5 % IMM GRAN % (test code = 0381594204) 0.50 % LYMPH % (test code = 736-9) 24.0 % MONO % (test code = 5905-5) 6.9 % EOS % (test code = 713-8) 1.6 % BASO % (test code = 706-2) 0.5 % GRAN MAT x10^3(ANC) (test code = 6221939351) 4.14 10*3/uL 1.88-7.09 IMM GRAN x10^3 (test code = 2138241595) 0.03 10*3/uL 0.00-0.06 LYMPH x10^3 (test code = 731-0) 1.49 10*3/uL 1.32-3.29 MONO x10^3 (test code = 742-7) 0.43 10*3/uL 0.33-0.92 EOS x10^3 (test code = 711-2) 0.10 10*3/uL 0.03-0.39 BASO x10^3 (test code = 704-7) 0.03 10*3/uL 0.01-0.07 Lab Interpretation (test code = 56522-8) Abnormal [facility] with Jxhw1332-60-04 20:44:18* Test Item Value Reference Range Interpretation [...] g/dL 31.6-35.1 L RDW-SD (test code = 99409-9) 69.5 fL 39.0-49.9 H RDW-CV (test code = 788-0) 18.1 % 12.0-15.5 H PLT (test code = 777-3) 208 166-358 MPV (test code = 24214-7) 10.5 fL 9.5-12.9 NRBC/100 WBC (test code = 9375169964) 0.5 0.0-10.0 NRBC x10^3 (test code = 0408980728) 0.03 See_Comment [Automated messa ge] The system which generated this result transmitted reference range: 10*3/?L. The reference range was not used to interpret this result as normal/abnormal. GRAN MAT (NEUT) % (test code = 770-8) 66.5 % IMM GRAN % (test code = 5282043091) 0.50 % LYMPH % (test code = 736-9) 24.0 % MONO % (test code = 5905-5) 6.9 % EOS % (test code = 713-8) 1.6 % BASO % (test code = 706-2) 0.5 % GRAN MAT x10^3(ANC) (test code = 5560025798) 4.14 10*3/uL 1.88-7.09 IMM GRAN x10^3 (test code = 0957139303) 0.03 10*3/uL 0.00-0.06 LYMPH x10^3 (test code = 731-0) 1.49 10*3/uL 1.32-3.29 MONO x10^3 (test code = 742-7) 0.43 10*3/uL 0.33-0.92 EOS x10^3 (test code = 711-2) 0.10 10*3/uL 0.03-0.39 BASO x10^3 (test code = 704-7) 0.03 10*3/uL 0.01-0.07 Lab Interpretation (test code = 65866-8) Abnormal [facility] CenterSURGICAL2024-04-04 12:39:00* Test Item Value Reference Range Interpretation Comments SURGICAL (test code = SR) RUN DATE: 01/03/24 [place] - LAB PAGE 1 RUN TIME: 1325 Specimen Inquiry RUN USER: INTERFACE PATIENT: JUSTYNA GAMING LOC: [facility]ER U #: [id number] AGE/SX: 73/F [place] [facility] [place]12/13/23REG DR: Rah Guzman MD : 49 BED: 1 DIS: 12/16/23 STATUS: DIS IN TLOC: SPEC #: [id number] RECD: 12/16/23-1057 STATUS: DEBBI RE #: [id number] MONROE: 12/15/23- SUBM DR: Rah Guzman MD ENTERED: 12/16/23-1099 SP TYPE: SURGICAL OTHR DR: No Primary or Family Physician Self Referred Blanco Worrell MD, Dhatri MD Rosenblatt, Michael J MD Shaw, James C MDORDERED: 85247/2, 10758, 16644, 77970, IHC ADD 39400/6, ANATOMIC SPEC COPIES TO: No Primary or Family Physician Self Referred Blanco Worrell MD [address] [place] [address] Leanna Mosher MD [address] [place] [address] Fern Mata MD [address] [place] [address] Alirio Hurtado MD [address] [facility] [place] [address] Rah Guzman MD [address] [place] [address] PROCEDURES: 19604 (12/16/23-1099) 07269 (12/16/23-1100) 38591 (12/16/23-1100) 77349 (12/23/23-1218) IHC ADD 69442 (12/23/23-1218) CONTINUED ON NEXT PAGE RUN DATE: 01/03/24 [place] - LAB PAGE 2 RUN TIME: 1325 Specimen Inquiry RUN USER: INTERFACE SPEC #: [id number] PATIENT: JUSTYNA GAMING #[id number] (Continued) - TISSUES: A. FEMORAL HEAD FRACTURE - RIGHT B. NECK - RIGHT FEMORAL ADDENDUM FINDINGS Addendum #3 Entered: 12/31/23 ADDENDUM TO REPORT HER2 FISH TESTING PERFORMED ENTIRELY BY [employer]: HER2 BY FISH: NEGATIVE. PLEASE SEE ORIGINAL REFERENCE LAB REPORT FOR DETAILS Addendum Signed SIGNATURE ON FILE Lyndon Cordero 01/03/24 1324 Addendum #2 Entered: 12/27/23-818 THE DIAGNOSIS WAS ISSUED WITH AN ERROR [...] FOR DETAILS Addendum Signed SIGNATURE ON FILE Lopezjose lLyndon etienne 12/27/23818 Addendum #1 Entered: 12/24/23-1148 Breast Biomarker Reporting Template 2020 Version 1.4.1.1 Test(s) Performed (select all that apply) Estrogen Receptor (ER) Status: POSITIVETumor Stained: 97%Intensity: 3+Sallie Score: 8Internal Control: Present,PositiveVendor: [employer]. CONTINUED ON NEXT PAGE RUN DATE: 01/03/24 [place] - LAB PAGE 3 RUN TIME: 1325 Specimen Inquiry RUN USER: INTERFACE SPEC #: [id number] PATIENT: JUSTYNA GAMING #[id number] (Continued) - ADDENDUM FINDINGS (Continued) Clone: 6F11. Progesterone Receptor (PgR) Status: POSITIVETumor Stained: 92%Intensity: 3+Sallie Score: 8Internal Control: Present,PositiveVendor: [employer].Clone: PgR 1294. Predictive marker ER/IN technical immunostaining and interpretation performed by[facility] [address] [place] [address], [address], [place] [address]. HER2 by Immunohistochemistry: HER2 Breast:EQUIVOCAL/LOWScore: 2+performed professional and technical by [facility], see outside reports. HER2 by FISH: Pending HER2 technical and professional Interpretation performed by [facility] [address] [place] [address], [address], [place] [address], see outside reports. PLEASE SEE ORIGINAL REFERENCE [...] CONTINUED ON NEXT PAGE RUN DATE: 01/03/24 [place] - LAB PAGE 4 RUN TIME: 1325 Specimen Inquiry RUN USER: INTERFACE SPEC #: [id number] PATIENT: JUSTYNA GAMING #[id number] (Continued) - GROSS DESCRIPTION 1. Received in formalin labeled right femoral head is a 3.5 x 3.5 x 3 cm right femoralhead, submitted for decalcification. Tissue is submitted (A) post decalcification. 2. Received in formalin labeled right femoral neck is a 4.2 cm aggregate of fragmentedbone tissue, portions of the tissue are submitted (B) for decalcification. Technical component performed at [facility],[address] [place] [address], [place] [address] Unless gross only, the diagnosis is based [...] CDX2. CLINICAL INFORMATION RIGHT FEMUR FRACTURE Signed Lyndon Cordero 12/23/23 1239 END OF REPORT COMPREHENSIVE METABOLIC [id number] 06:52:00* Test Item Value Reference Range Interpretation [...] ALKP) 157 IUnit/L 20-125 H CBC W/AUTO [id number] 06:41:00* Test Item Value Reference Range Interpretation [...] 0.00 x10 3/uL 0.0-0.1 N COMPREHENSIVE METABOLIC [id number] 05:13:00* Test Item Value Reference Range Interpretation [...] = ALKP) 159 IUnit/L 20-125 H CA27-29, VPFXCGN8785-88-34 05:13:00* Test Item Value Reference Range Interpretation Comme nts CA27-29, BIOMIRA (test code = KH9082) 51.4 U/mL 0.0-38.6 A Siemens [employer] Immunochemiluminometric Methodology (ICMA)Values obtained with different assay methods or kits cannotbe used interchangeably. Results cannot be interpreted asabsolute evidence of the presence or absence of malignantdisease.Performed At: [facility] [address] [place], [place] [id number] Kyle L MD Ph:[phone] CA [id number] 10:08:00* Test Item Value Reference Range Interpretation Comme nts CA 15-3 (test code = CA15) 35.8 U/mL 0.0-25.0 H [employer] Electrochemiluminescence Immunoassay(ECLIA)Values obtained with different assay methods or kits cannotbe used interchangeably. Results cannot be interpreted asabsolute evidence of the presence or absence of malignantdisease.Performed At: [facility] [address] [place], [place] [id number] Kyle L MD Ph:[phone] CBC W/AUTO [id number] 07:04:00* Test Item Value Reference Range Interpretation [...] NRBC#) 0.00 x10 3/uL 0.0-0.1 N VITAMIN [id number] 07:04:00* Test Item Value Reference Range Interpretation Comme [facility] VITAMIN B12 (test code = VITB12) 899 pg/mL 193-986 N Indication for Test: Osteopenia/Bone Dis RiskFOLIC [id number] 07:04:00* Test Item Value Reference Range Interpretation Comme nts FOLIC ACID (test code = FOL) 8.2 ng/mL 3.1-17.5 N Indication for Test: Osteopenia/Bone Dis RiskVITAMIN D 23-[id number] 07:04:00* Test Item Value Reference Range Interpretation Comme nts VITAMIN D 25-HYDROXY (test c ode = VITD25) 37.7 ng/mL 30-100 N Indication for Test: Osteopenia/Bone Dis RiskTHYROID STIMULATING HORMONE 2023-12-17 07:03:00* Test Item Value Reference Range Interpretation Comme nts THYROID STIMULATING HORMONE (test code = TSH) 4.79 0.42-5.47 N Result s in sunil-International Units/mL COVID 19 Asymptomatic IH [id number] 12:47:00* Test Item Value Reference Range Interpretation [...] moderate, high or waivedcomplexity tests. BASIC METABOLIC [id number] 07:18:00* Test Item Value Reference Range Interpretation [...] CA) 8.3 mg/dL 8.0-10.5 N CBC W/AUTO [id number] 06:57:00* Test Item Value Reference Range Interpretation [...] 0.00 x10 3/uL 0.0-0.1 N COMPREHENSIVE METABOLIC [id number] 07:25:00* Test Item Value Reference Range Interpretation [...] ALKP) 158 IUnit/L 20-125 H CBC W/AUTO [id number] 06:14:00* Test Item Value Reference Range Interpretation [...] = NRBC#) 0.00 x10 3/uL 0.0-0.1 N [id number] 14:50:00* Test Item Value Reference Range Interpretation Comme nts CREATININE (test code = CREAT) 1.2 mg/dL 0.6-1.3 N COMMENTS: Stat creatinine if not already performedPTH INTACT [id number] 04:32:00* Test Item Value Reference Range Interpretation Comme nts PARATHYROID HORMONE INTACT ( test code = PARAI) 11.5 pg/mL 14.0-72.0 L PROTHROMBIN [id number] 23:39:00* Test Item Value Reference Range Interpretation [...] Infarction (to prevent recurrent infarct). COMPREHENSIVE METABOLIC [id number] 23:38:00* Test Item Value Reference Range Interpretation [...] ALKP) 167 IUnit/L 20-125 H CBC W/AUTO [id number] 23:15:00* Test Item Value Reference Range Interpretation [...] x10 3/uL 0.0-0.1 N MAMMO GUIDED WIRE [id number] 18:11:00 *.*.*.*.*.*.*.*.*.*.*.*.*.*FINAL*.*.*.*.*.*.*.*.*.*.*.*.*.*.*History: RIGHT BREAST: Focal asymmetrycentrally at [...] by: LISA ROMAN MD /Signed/ LISA ROMAN MDUnNexus Children's Hospital HoustonDIGITAL DIAGNOSTIC [id number] 14:16:00 *.*.*.*.*.*.*.*.*.*.*.*.*.*FINAL*.*.*.*.*.*.*.*.*.*.*.*.*.*.*History: Patient has known bilateral biopsy [...] NATALIA MAURICE MD /Signed/ NATALIA MAURICE MD [facility] Consult Notes Date/Time Note Provider Source 2024-12-09 11:28:46 [facility] Consult Report Requesting Physician: Josephine Levine MD DATE OF SERVICE: 12/09/2024 NAME: Chiquis Gaming #: [id number] Chief Complaint: We were asked to help manage pain Chiquis Gaming, 74 year old, female who presents with SOB. HPI Patient is a 74 year old /White female who presented to the ED for SOB. 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 She has chronic pain and history of breast cancer with bony metastasis. She complains of left shoulder pain secondary to a pathological humerus fracture. She also has right hip pain from a previous surgery. She take tramadol and gabapentin at home. The pain is throbbing and aching. The pain is mostly moderate. The pain is tolerable with medication use. The pain worsens with movement or palpation. Pain management has been asked to assist with pain control. ALLERGY: Tree nuts, Aspirin, Cefdinir, Codeine, Melon, Morphine, and Shellfish [iodine and iodide containing products] SOCIAL HISTORY: Social History Tobacco Use Smoking Status Never Passive exposure: Never Smokeless Tobacco Never Social History Substance and Sexual Activity Alcohol Use No Alcohol/week: 0.0 standard drinks of alcohol Comment: drank for 4-5 years, quit 1987 Social History Substance and Sexual Activity Drug Use No FAMILY HISTORY: Family History Problem Relation Age of Onset Heart Father Other - see comments Sister Liver transplant Heart Maternal Grandfather Kidney disease Mother dialysis Breast Cancer Paternal Aunt bilateral breast cancer, postmenopausal? Breast Cancer Other 64 daughter of aunt with breast cancer Cancer Paternal Grandmother Breast Cancer Paternal Grandmother Cancer Sister 71 oral cancer MEDICATIONS: Current Facility-Administered Medications Medication Dose Route Frequency Last Rate Last Admin KCL (KLOR-CON M20) tablet 40 mEq 40 mEq Oral ONCE pantoprazole (PROTONIX) injection 40 mg 40 mg Slow IV Push Q12H 40 mg at 12/09/24 0840 furosemide (LASIX) tablet 40 mg 40 mg Oral DAILY 40 mg at 12/09/24 0840 ipratropium-albuteroL (DUONEB) 0.5 mg-3 mg(2.5 mg base)/3 mL nebulizer solution 3 mL 3 mL Inhalation BID 3 mL at 12/09/24 0746 acetaminophen (TYLENOL) tablet 650 mg 650 mg Oral Q6HPRN 650 mg at 12/09/24 0839 albuterol (VENTOLIN) inhaler 2 Puff 2 Puff Inhalation Q6HPRN budesonide (PULMICORT RESPULE) nebulizer solution 0.5 mg 0.5 mg Inhalation BID 0.5 mg at 12/09/24 0746 cholecalciferol (vitamin D3) tablet 1,000 Units 1,000 Units Oral DAILY 1,000 Units at 12/09/24 0840 gabapentin (NEURONTIN) capsule 100 mg 100 mg Oral BIDPRN 100 mg at 12/09/24 0840 hydralAZINE (APRESOLINE) injection 10 mg 10 mg Slow IV Push Q6HPRN 10 mg at 12/04/24 0204 labetaloL (NORMODYNE) 5 mg/mL injection 10 mg 10 mg Slow IV Push Q6HPRN levothyroxine (SYNTHROID) tablet 75 mcg 75 mcg Oral QAM-0600 75 mcg at 12/09/24 0505 LORazepam (ATIVAN) tablet 0.5 mg 0.5 mg Oral PRN 0.5 mg at 12/09/24 0840 melatonin (MELATIN) tablet 6 mg 6 mg Oral QHSPRN 6 mg at 12/08/24 2255 qbzvtnkm-xchc-VX-calcium-mins (THERA-M) 9 mg iron-400 mcg tablet 1 tablet Oral DAILY 1 tablet at 12/09/24 0840 ondansetron (ZOFRAN (PF)) injection 4 mg 4 mg Slow IV Push Q6HPRN 4 mg at 12/08/24 2255 sennosides-docusate sodium (SENOKOT-S) 8.6-50 mg per tablet 1 tablet 1 tablet Oral DAILY 1 tablet at 12/09/24 0840 traMADoL (ULTRAM) tablet 50 mg 50 mg Oral Q6HPRN 50 mg at 12/09/24 0505 PAST MEDICAL HISTORY: Past Medical History: Diagnosis Date Arthritis Asthma Bone cancer Breast cancer 01/2014 Bilateral, Left invasive ductal, Right tubular, diagnosed in [place]. [facility] Genetic Screening panel negative 02/2017. Hypertension Hypothyroid Postmenopausal vaginal bleeding 2014 SURGICAL HISTORY: Past Surgical History: Procedure Laterality Date ABDOMINAL HYSTERECTOMY N/A 11/04/2015 With BSO too. Surgeon: Clarita Casillas; [facility] BREAST BIOPSY WITH NEEDLE LOCALIZATION Right 11/04/2015 Surgeon: Daniela Mcqueen; Location: [facility] BREAST LUMPECTOMY BX OF BREAST, NEEDLE CORE, IMAGE GUIDE Bilateral 2013 [facility] breast cancer COLONOSCOPY N/A 11/15/2017 Surgeon: Alejandro Barber MD; Location[facility] Location ENDOMETRIAL BIOPSY 09/24/2015 ESOPHAGOGASTRODUODENOSCOPY N/A 12/07/2024 Surgeon: Marbella Vale MD; Location: [facility] OR LOCATION HUMERUS INTRAMEDULLARY NAILING Left 11/21/2024 Surgeon: Addie Aguilera MD; Location: [facility] OR LOCATION JOINT SURGERY Right LYMPH NODE DISSECTION Left 11/04/2015 Surgeon: Daniela Mcqueen; [facility]: [facility] MAMMOGRAM, BILATERAL-DIAGNOSTIC 02/16/2014 OBSTE CARE,VAG DELIV+ 1967, 1971 REDUCTION MAMMOPLASTY Bilateral 11/04/2015 Surgeon: Jake Tomlin MD; Location: [facility] [place] SEGMENTAL MASTECTOMY Bilateral 11/04/2015 Left central lumpectomy with nipple/areola excision, Right needle localized lumpectomy. Surgeon: Daniela Mcqueen; Location: [facility] Location SENTINEL LYMPH NODE MAPPING Right 11/04/2015 Surgeon: Daniela Mcqueen; Location: [facility] Location TONSILLECTOMY US CORE BIOPSY Left axillary node core biopsy positive for breast cancer REVIEW OF SYSTEMS 14 Point ROS undertaken and negative except as noted: General: (-) fever, (-) chills, (-) weight loss Endo: (-) heat intolerance, (-) diabetes, (-) cold intolerance HEENT: (-) headache, (-) change in vision, (-) sore throat Neck: (-) pain, (-) difficulty swallowing, (-) mass Resp: (-) cough, (-) shortness of breath, (-) wheezing Cardio: (-) chest pain, (-) palpitations, (-) syncope GI: (-) abdominal pain, (-) vomiting, (-) diarrhea : (-) dysuria, (-) hematuria, (-) increased frequency Skin: (-) rash, (-) lesion Vasc: (-) claudication Neuro: (-) numbness, (-) weakness, (-) change in speech HARPREET: (-) muscle pain, (-) joint pain Psych: (-) anxiety, (-) depression, (-) psychiatric disorder PHYSICAL EXAMINATION Vitals: 12/09/24 0748 12/09/24 0758 12/09/24 0814 12/09/24 1114 BP: 134/70 118/63 BP Location: Patient Position: Pulse: 96 99 103 111 Resp: 16 16 Temp: 36.4 ?C (97.5 ?F) 36.2 ?C (97.2 ?F) TempSrc: SpO2: 97% 98% 95% 95% Weight: Height: Pain Scale: General: awake, alert, and oriented; no apparent distress HEENT: normocephalic, atraumatic, PERRLA with EOMI Neck: supple, no lymphadenopathy, no bruits, no JVD Cardio: regular rate and rhythm, no murmurs, rubs, or gallops Lungs: clear to auscultation bilaterally, no rhonchi, no crackles, wheezing, on O2 Abdomen: soft; non-tender; non-distended; normoactive bowel sounds Genital/rectal: deferred Extremities: no clubbing, cyanosis, or edema, wearing a sling to the left arm, PleurX catheter Skin: no rashes, lesions Muscle: normal RUE, LUE, RLE, LLE, normal ROM Neuro: cranial nerves grossly intact; sensation grossly intact Lymphatics: no lymphadenopathy Psychology: normal mood and affect Review of Data: LABS - reviewed pertinent labs as below: CBC WBC (10*3/?L) Date Value 12/09/2024 3.59 (L) RBC (10*6/?L) Date Value 12/09/2024 2.59 (L) PLT (10*3/?L) Date Value 12/09/2024 60 (L) HGB (g/dL) Date Value 12/09/2024 8.1 (L) HCT (%) Date Value 12/09/2024 25.4 (L) CMP NA (mmol/L) Date Value 12/09/2024 133 (L) K (mmol/L) Date Value 12/09/2024 3.3 (L) CALCIUM (mg/dL) Date Value 12/09/2024 9.0 CL (mmol/L) Date Value 12/09/2024 95 (L) BUN (mg/dL) Date Value 12/09/2024 27 (H) CREATININE (mg/dL) Date Value 12/09/2024 0.95 GLUCOSE (mg/dL) Date Value 12/09/2024 80 CO2 TOTAL (mmol/L) Date Value 12/09/2024 31 ALBUMIN (g/dL) Date Value 12/03/2024 4.0 T PROTEIN (g/dL) Date Value 12/03/2024 6.9 TOTAL BILI (mg/dL) Date Value 12/03/2024 1.6 (H) BILI UNCON (mg/dL) Date Value 05/12/2024 0.5 BILI CONJ (mg/dL) Date Value 05/12/2024 0.0 ALT(SGPT) (U/L) Date Value 02/06/2019 27 ALTv (U/L) Date Value 12/03/2024 35 AST(SGOT) (U/L) Date Value 12/03/2024 84 (H) ALK PHOS (U/L) Date Value 12/03/2024 270 (H) IMAGING - reviewed, pertinent results as below: XR Chest 1 vw Result Date: 12/07/2024 Stable small right pleural effusion. Associated right basilar subsegmental atelectasis. End of Report SSMENT/PLAN: Chiquis Gaming is a 74 year old female presents with the following: Thoracic/low back pain, acute postoperative pain -S/p PleurX catheter placement -Tylenol 650 mg PO q6h PRN pain scale 1-3 -Tramadol 50 mg PO q6h PRN pain scale 7-10 Left humerus fracture, left shoulder pain, bony metastasis -Lidocaine patch to left shoulder daily 12h on 12h off (12/09) Breast cancer, neoplasm related pain, malignant pleural effusion -S/p PleurX catheter -Polisher Implant following -Pain medications as outlined above Right hip pain -Pain medications as outlined above Polyneuropathy -Gabapentin 100 mg PO BID PRN Constipation -Senna S 1 tab PO daily Disposition: Rx: Pharmacy: [facility] ([id number] [address] [place] [address] [place] [address] Past medical history: HTN, hypothyroidism, postmenopausal vaginal bleeding, breast cancer c/b bony mets and pathological fracture, prior gastric ulcer c/b perforation, asthma, arthritis, Past surgical history: s/p siva patch 12/2023, Family history: Noncontributory Social history: No alcohol, tobacco or illicit drug use Allergies: Tree nuts, ASA, cefdinir, codeine, melon, morphine, shellfish, Goals: To provide safe and effective pain relief with PT/OT, wound care, during sleep, and to improve QOL Patient will require monitoring while using narcotic medications. Risks vs benefits of opioid medications were reviewed, including, but not limited to respiratory depression, accidental opioid overdose, dependency, altered mental status, drowsiness/sedation. All questions were answered. All diagnostics over last 24 hrs reviewed Plan of care discussed with patient and nurse Thank you Josephine Morales MD for this kind consult and for allowing us to participate in the care of your patient. Case discussed with Dr. Muhammad whom agrees with assessment and plan. Please don't hesitate to call for any question. JOSHUA Dial, AGACNP, [place] [phone] [place] [employer] MANAGER report reviewed: Chiquis Gaming 1950 [address] [id number] [facility] [id number] RX Summary Summary Total Prescriptions 8 Total Private Pay 0 Total Prescribers 5 Total Pharmacies 2 Narcotics (excluding Buprenorphine) Current MME/day 0.00 30 Day Avg MME/day 16.33 Current Qty 0 11/21/2024 11/21/2024 2 TRAMADOL HCL 50 MG TABLET 28.00 7 Cr Ar [id number] [facility] ([facility]10[facility] 0 40.00 MME Medicare [place] 11/15/2024 11/14/2024 2 TRAMADOL HCL 50 MG TABLET 21.00 7 Ry Tur [id number] [facility] ([facility]10[facility] 0 30.00 [place]ME [place] 10/27/2024 10/27/2024 2 TRAMADOL HCL 50 MG TABLET 50.00 12 Lopez Min [id number] [facility] (1910) 0 41.67 MME [place] 10/03/2024 10/02/2024 2 TRAMADOL HCL 50 MG TABLET 50.00 12 Lopez Min [id number] [facility] (1910) 0 41.67 MME [place] 09/11/2024 09/11/2024 1 TRAMADOL HCL 50 MG TABLET 40.00 10 Ja Hardy [id number] [facility] (0) 0 40.00 MME [place] 06/29/2024 06/29/2024 1 HYDROCODONE-ACETAMIN 10-325 MG 42.00 7 Lopez Min [id number] [facility] ([facility]) 0 60.00 MME [place] 06/26/2024 06/26/2024 1 LORAZEPAM 1 MG TABLET 1.00 1 Lpoez Min [id number] [facility] ([facility] 0 1.00 LME Medicare [place] 03/14/2024 03/14/2024 1 LORAZEPAM 0.5 MG TABLET 3.00 3 Ka Cot [id number] [facility] ([facility]60) 0 0.50 LME Medicare [place] [facility] [employer] (0) [address] [place] [id number] [facility] (1910) [address] [facility] [id number] Associated attestation - Ricky Muhammad Jr., MD - 12/11/2024 9:52 PM CDT I have reviewed the chart and agree with the plan. Ricky Muhammad MD [facility] 2024-12-05 14:50:41 Associated Order(s): CONSULT ADULT OCCUPATIONAL THERAPY Images from the original note were not included. 12/05/2024 1445 Chart reviewed in anticipation of follow up treatment. Upon attempt orthopedics updated precautions and activity for LUE listed below and will update goals and precautions for further treatments. Thank you. Velvet Springer OTR, [facility] Department of Rehab Services Per Orthopedics Vivi Garay 12/05/2024: LUE- please work on L shoulder pendulum exercises. No other passive or active ROM to the shoulder. AROMAT to the L wrist/elbow to prevent stiffness. and Weight Bearing Single Limb, LT Upper Extremity, NWB Precautions: Weight bearing status: NWB L UE General: PPE Utilized: Gloves, Fall, and IV to R UE, No AROM/PROM of L shoulder Bracing: Sling L UE GOAL(S): By discharge, patient will increase independence in daily living skills as follows: 1 Patient will perform toilet transfer with independence. 2 Patient will perform UB dressing with minimal assistance. 3 Patient will perform LB dressing with minimal assistance. 4 Patient will complete 2 grooming tasks with supervision while standing at the sink. 5 Patient will complete toileting hygiene, including clothing management, with independence. 6 Patient will increase endurance for functional activity as evidenced by ability to sustain 25 minutes of active participation. 7 Patient will demonstrate ability to complete L shoulder pendulum exercises and L wrist/elbow exercises at supervision level. 8 Patient/caregiver will verbalize/demonstrate understanding/proficiency in the following home programs: Adaptive equipment , AROM, Compensatory techniques/adaptive strategies, Dexterity/fine motor coordination, Energy conservation, Fall prevention, General strengthening, and WB restrictions Velvet Springer OT [facility] 2024-12-05 14:43:52 Associated Order(s): CONSULT ADULT PHYSICAL THERAPY Images from the original note were not included. Duplicate consult. Please refer to PT consult filed on 12/04/2024 at 1237 for details. Thank you. Maycol Pruitt, PT, DPT [facility] Department of Rehabilitation Services Pager: [phone] Myacol Pruitt PT [facility] 2024-12-05 10:12:49 Associated Order(s): CONSULT ORTHOPAEDIC SURGERY ORTHOPEDIC SURGERY CONSULT NOTE Patient Name: Chiquis Gaming Patient CHIEF COMPLAINT Left arm pain HISTORY OF PRESENT ILLNESS Chiquis Gaming is a 74 year old female with past medical history of breast cancer who is being seen for left arm pain. She underwent left humerus IMN with Dr. Aguilera at [facility] on 11/21/24 due to pathologic left humerus shaft fracture. She presented to the [place] ED on 12/03 complaining of SOB and was transferred to [facility] for admission due to pleural effusion. Orthopedics is consulted for postoperative care. Subjective: Patient is seen and evaluated at the bedside. Patient localizes pain to her left arm; states it has improved a lot since surgery. She has kept her left arm in a sling and adhered to NWB to the LUE. PAST HISTORIES Past Medical History: Diagnosis Date Arthritis Asthma Bone cancer Breast cancer 01/2014 Bilateral, Left invasive ductal, Right tubular, diagnosed in [place]. [facility] Genetic Screening panel negative 02/2017. Hypertension Hypothyroid Postmenopausal vaginal bleeding 2014 Past Surgical History: Procedure Laterality Date ABDOMINAL HYSTERECTOMY N/A 11/04/2015 With BSO too. Surgeon: Clarita Casillas; [facility] BREAST BIOPSY WITH NEEDLE LOCALIZATION Right 11/04/2015 Surgeon: Daniela Mcqueen; Location[facility] Location BREAST LUMPECTOMY BX OF BREAST, NEEDLE CORE, IMAGE GUIDE Bilateral 2013 [place], bil breast cancer COLONOSCOPY N/A 11/15/2017 Surgeon: Alejandro Barber MD; Location: [facility] Location ENDOMETRIAL BIOPSY 09/24/2015 HUMERUS INTRAMEDULLARY NAILING Left 11/21/2024 Surgeon: Addie Aguilera MD; Location: [facility] OR LOCATION JOINT SURGERY Right LYMPH NODE DISSECTION Left 11/04/2015 Surgeon: Daniela Mcqueen; [facility] Location MAMMOGRAM, BILATERAL-DIAGNOSTIC 02/16/2014 OBSTE CARE,VAG DELIV+ 1967, 1971 REDUCTION MAMMOPLASTY Bilateral 11/04/2015 Surgeon: Jake Tomlin MD; Location[facility] Location SEGMENTAL MASTECTOMY Bilateral 11/04/2015 Left central lumpectomy with nipple/areola excision, Right needle localized lumpectomy. Surgeon: Daniela Mcqueen; Location[facility] Location SENTINEL LYMPH NODE MAPPING Right 11/04/2015 Surgeon: Daniela Mcqueen; Location[facility] Location TONSILLECTOMY US CORE BIOPSY Left axillary node core biopsy positive for breast cancer Family History Problem Relation Age of Onset Heart Father Other - see comments Sister Liver transplant Heart Maternal Grandfather Kidney disease Mother dialysis Breast Cancer Paternal Aunt bilateral breast cancer, postmenopausal? Breast Cancer Other 64 daughter of aunt with breast cancer Cancer Paternal Grandmother Breast Cancer Paternal Grandmother Cancer Sister 71 oral cancer ALLERGIES Allergies Allergen Reactions Tree Nuts Itching Especially walnuts Aspirin Other - See comments Cefdinir Hives Codeine Unknown - See comments Melon Other - See comments "Itchy throat" Morphine Nausea and/or Vomiting Shellfish [Iodine And Iodide Containing Products] Unknown - See comments Upsets her stomach REVIEW OF SYSTEMS Constitutional: no fever, no chills Gastrointestinal: no vomiting OBJECTIVE BP 127/61 | Pulse 100 | Temp 36.4 ?C (97.6 ?F) | Resp 15 | Ht 1.6 m (5' 3") | Wt 68.7 kg (151 lb 7.3 oz) | SpO2 99% | BMI 26.83 kg/m? PHYSICAL EXAMINATION General: Alert and oriented, in no apparent distress, laying comfortably supine in hospital bed with HOB elevated Head: Atraumatic normocephalic Eyes: extraocular movements intact, conjunctivae pink CV: no pitting edema Respiratory: breaths nonlabored, no wheezing Skin: warm and dry Psychiatric: Pleasant, appropriate affect Musculoskeletal: Left upper extremity -Tender to palpation over proximal humerus -Incisions well healed with jones present. These are removed. -Gross sensory function intact to the axillary, radial, median and ulnar nerve distributions -Patient able to give thumbs up, do okay sign, abduct/adduct all fingers. Able to flex/extend the wrist. -Palpable radial and ulnar pulses. Extremity warm and well perfused with brisk capillary refill in the digits. -Compartments soft and compressible. Labs: CBC WBC (10*3/?L) Date Value 12/05/2024 5.92 RBC (10*6/?L) Date Value 12/05/2024 2.09 (L) PLT (10*3/?L) Date Value 12/05/2024 75 (L) HGB (g/dL) Date Value 12/05/2024 6.7 (L) HCT (%) Date Value 12/05/2024 21.2 (L) BMP NA (mmol/L) Date Value 12/05/2024 132 (L) K (mmol/L) Date Value 12/05/2024 3.6 CALCIUM (mg/dL) Date Value 12/05/2024 9.1 CL (mmol/L) Date Value 12/05/2024 96 (L) BUN (mg/dL) Date Value 12/05/2024 29 (H) CREATININE (mg/dL) Date Value 12/05/2024 1.01 GLUCOSE (mg/dL) Date Value 12/05/2024 83 CO2 TOTAL (mmol/L) Date Value 12/05/2024 25 CRP (mg/dL) Date Value 05/01/2015 0.2 No results found for: "[facility]" IMAGING I have personally reviewed the following images and associated radiology reports: X-rays of the L humerus performed today demonstrate well-reduced humerus shaft fracture with IMN construct in place, no hardware complications. ASSESSMENT Primary Orthopedic Diagnosis(es): -Left pathologic humerus shaft fracture, s/p IMN 11/21, progressing as expected Other Pertinent Diagnosis(es): -Breast cancer PLAN: I discussed the patient with orthopedic faculty Dr. Aguilera. Based on radiographic findings and physical exam, our recommendation is for the following: - Blue Mounds removed and replaced with steri strips. Incisions covered with 4x4 gauze and tape; keep c/d/I for 24h then okay to remove dressing and get incisions/strips wet. Strips may fall out on their own or be removed in 1 week. - Continue sling to LUE. Remove it 3x daily for L shoulder pendulum exercises and elbow/wrist AROM to prevent stiffness. - PT/OT: Mobilize, please work with pt on LUE ROM as above. - Weight bearing status: NWB LUE - Disposition: No further orthopedic intervention while inpatient. F/u in clinic with Dr. Aguilera in 4 weeks. - Pain control, medical management and Lambert care (if applicable) per primary team. Appreciate their assistance in caring for this patient. - Please contact on-call orthopedic surgical team as needed with questions or concerns. Vivi Garay PA-C 12/05/2024 10:12 Department of Orthopaedic Surgery and Rehabilitation [facility] [employer] 2024-12-05 07:52:00 Associated Order(s): CONSULT GASTROENTEROLOGY Images from the original note were not included. Department of Gastroenterology & Hepatology Consult Note Requesting Physician: Josafat Scott MD Service: PEDRO- Medicine Reason for Consultation: GIB, melena, NSAID use Date of Service: 12/05/2024 CHIEF COMPLAINT: Shortness of Breath History of Present Illness 74/F PMH HTN, hypothyroidism, postmenopausal vaginal bleeding, breast cancer c/b bony mets and pathological fracture s/p radiation, prior gastric ulcer c/b perforation s/p siva patch 12/2023, and asthma who presents to [facility] with Shortness of Breath x2 d. Patient reports shortness of breath that started Wednesday morning for which she presented to [facility] wherein she was noted to be 90% on room air--> 2L O2 via NC. Additionally noted to have anemia (Hb 7.5 down from 9.2 2 weeks ago on 11/14/2024) and hence sent to [facility] for further workup. She reports intermittent black liquidy stools but denies any hematemesis or hematochezia. Last BM is dark brown she reports In the ED workup, labs and imaging were reviewed and are unremarkable except for RBC 2.34, Hgb 7.5, HCT 24.4, MCV 104.3, platelet 66, Na 134, chloride 97, BUN 26, total bili 1.6, alk phos 270, AST 84,. Imaging with CXR showing Moderate to large right pleural effusion s/p thoracentesis of 1L fluid with IR. Of note, patient has had hip pathological fracture in last year that was due to Ca breast bony mets for which she received radiation (last in fall 2023). She sustained a left humerus pathological fracture on November 14, 2024 2/2 trauma s/p IM nailing 11/21/24 with ortho. The underlying reason for pathological fracture is unknown but CT humerus did show concerns for widespread metastatic lesions throughout clavicle, rib cage, scapula after which she underwent a PET scan that showed multiple bony mets for which treatment is being discussed (pt refused chemo) Patient is being admitted for further workup, observation, and treatment. Reports FH - Sister PBC at age 40s, s/p liver transplant PAST MEDICAL HISTORY Past Medical History: Diagnosis Date Arthritis Asthma Bone cancer Breast cancer 01/2014 Bilateral, Left invasive ductal, Right tubular, diagnosed in [place]. [facility] Genetic Screening panel negative 02/2017. Hypertension Hypothyroid Postmenopausal vaginal bleeding 2014 PAST SURGICAL HISTORY Past Surgical History: Procedure Laterality Date ABDOMINAL HYSTERECTOMY N/A 11/04/2015 With BSO too. Surgeon: Clarita Casillas; [facility] BREAST BIOPSY WITH NEEDLE LOCALIZATION Right 11/04/2015 Surgeon: Daniela Mcqueen; Location[facility] BREAST LUMPECTOMY BX OF BREAST, NEEDLE CORE, IMAGE GUIDE Bilateral 2013 [place], [facility] breast cancer COLONOSCOPY N/A 11/15/2017 Surgeon: Alejandro Barber MD; Location[facility] Location ENDOMETRIAL BIOPSY 09/24/2015 HUMERUS INTRAMEDULLARY NAILING Left 11/21/2024 Surgeon: Addie Aguilera MD; Location: [facility] OR LOCATION JOINT SURGERY Right LYMPH NODE DISSECTION Left 11/04/2015 Surgeon: Daniela Mcqueen; Location: [facility] [place] MAMMOGRAM, BILATERAL-DIAGNOSTIC 02/16/2014 OBSTE CARE,VAG DELIV+ 1967, 1971 REDUCTION MAMMOPLASTY Bilateral 11/04/2015 Surgeon: Jake Tomlin MD; Location: [facility] [place] SEGMENTAL MASTECTOMY Bilateral 11/04/2015 Left central lumpectomy with nipple/areola excision, Right needle localized lumpectomy. Surgeon: Daniela Mcqueen; Location: [facility] [place] SENTINEL LYMPH NODE MAPPING Right 11/04/2015 Surgeon: Daniela Mcqueen; Location: [facility] [place] TONSILLECTOMY US CORE BIOPSY Left axillary node core biopsy positive for breast cancer FAMILY HISTORY Family History Problem Relation Age of Onset Heart Father Other - see comments Sister Liver transplant Heart Maternal Grandfather Kidney disease Mother dialysis Breast Cancer Paternal Aunt bilateral breast cancer, postmenopausal? Breast Cancer Other 64 daughter of aunt with breast cancer Cancer Paternal Grandmother Breast Cancer Paternal Grandmother Cancer Sister 71 oral cancer ALLERGIES Allergies Allergen Reactions Tree Nuts Itching Especially walnuts Aspirin Other - See comments Cefdinir Hives Codeine Unknown - See comments Melon Other - See comments "Itchy throat" Morphine Nausea and/or Vomiting Shellfish [Iodine And Iodide Containing Products] Unknown - See comments Upsets her stomach MEDICATIONS Reviewed SOCIAL HISTORY Social History Socioeconomic History Marital status: Spouse name: Not on file Number of children: Not on file Years of education: Not on file Highest education level: Not on file Occupational History 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 Divorce with 2 grown daughters. Is retired. Wants to spend as much quality time with family as possible. Motivated to address health issues to be able to be present for and experience family. DEMETRA GIRALDO MD 05/07/2015 11:25 AM 01/03/2021 Moved to [place] from [place] to be near daughter. Son lives in [place]. 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; Likes to spend time with family Social Determinants of Health Financial Resource Strain: Not on file Food Insecurity: No Food Insecurity (12/04/2024) NCSS - Food Insecurity Worried About Running Out of Food in the Last Year: No Ran Out of Food in the Last Year: No Transportation Needs: No Transportation Needs (12/04/2024) NCSS - Transportation Lack of Transportation: No Physical Activity: Not on file Stress: Not on file Social Connections: Not on file Housing Stability: Not At Risk (12/04/2024) NCSS - Housing/Utilities Has Housing: Yes Worried About Losing Housing: No Unable to Get Utilities: No ROS: Negative unless in HPI PHYSICAL EXAM: BP 127/61 | Pulse 94 | Temp 36.4 ?C (97.6 ?F) | Resp 18 | Ht 5' 3" (1.6 m) | Wt 151 lb 7.3 oz (68.7 kg) | SpO2 98% | BMI 26.83 kg/m? Constitutional: comfortable and in no acute distress. Left arm in sling Cardiovascular: RRR Respiratory: non-labored Gastrointestinal: non distended, soft, non tender Neurologic: grossly non-focal Psychiatric: normal affect LABORATORY HGB (g/dL) Date Value 12/05/2024 6.7 (L) 12/04/2024 7.3 (L) 12/04/2024 7.3 (L) PLT (10*3/?L) Date Value 12/05/2024 75 (L) 12/04/2024 75 (L) 12/04/2024 69 (L) INR (no units) Date Value 12/04/2024 1.3 09/30/2016 1.1 03/24/2016 1.0 Hepatic Function Panel ALBUMIN (g/dL) Date Value 12/03/2024 4.0 T PROTEIN (g/dL) Date Value 12/03/2024 6.9 TOTAL BILI (mg/dL) Date Value 12/03/2024 1.6 (H) BILI UNCON (mg/dL) Date Value 05/12/2024 0.5 BILI CONJ (mg/dL) Date Value 05/12/2024 0.0 ALT(SGPT) (U/L) Date Value 02/06/2019 27 ALTv (U/L) Date Value 12/03/2024 35 AST(SGOT) (U/L) Date Value 12/03/2024 84 (H) ALK PHOS (U/L) Date Value 12/03/2024 270 (H) BMP NA (mmol/L) Date Value 12/05/2024 132 (L) K (mmol/L) Date Value 12/05/2024 3.6 CALCIUM (mg/dL) Date Value 12/05/2024 9.1 CL (mmol/L) Date Value 12/05/2024 96 (L) BUN (mg/dL) Date Value 12/05/2024 29 (H) CREATININE (mg/dL) Date Value 12/05/2024 1.01 GLUCOSE (mg/dL) Date Value 12/05/2024 83 CO2 TOTAL (mmol/L) Date Value 12/05/2024 25 RADIOLOGY: CTA GI bleed protocol 12/05/24 IMPRESSION 1. No evidence of active GI bleed at the time of examination 2. Extensive metastatic disease involving the entire skeleton 3. 1.7 cm heterogeneously enhancing lesion in the right kidney is suspicious for renal cell carcinoma 4. Hyperdense cyst in the left kidney may represent a hemorrhagic or proteinaceous cyst 5. 1.9 cm low-density lesion in the liver may represent a metastatic focus. 5. Right pleural effusion with associated atelectasis PET scan from [facility] 06/29/24 ANTICOAGULATION None PREVIOUS ENDOSCOPY: COLONOSCOPY: 10/2017 - The perianal and digital rectal examinations were normal. Pertinent negatives include no palpable rectal lesions. Findings: - Multiple small and large-mouthed diverticula were found in the sigmoid colon. - Two pedunculated polyps were found in the splenic flexure. The polyps were small in size. These polyps were removed with a hot snare. Resection and retrieval were complete. - The remaining examined colon appeared normal on direct. Noted to have internal hemorrhoids on retroflexion views ASSESSMENT and PLAN 74/F PMH HTN, hypothyroidism, postmenopausal vaginal bleeding, breast cancer c/b bony mets and pathological fracture s/p radiation in past, prior gastric ulcer c/b perforation s/p siva patch 12/2023, and asthma who presents to [facility] with Shortness of Breath x2 d. Notably had a pathological humerus fracture 10/2024 2/2 bony mets from breast Ca. At [place] she needed supplemental O2 and found to be anemic and large pleural effusion s/p thoracentesis. Notably Hb is 7.5, macrocytic and also thrombocytopenic with no known prior liver disease. Does report family history of PBC and sibling. Liver imaging with CT abdomen triple phase shows normal shape and size of the abdomen with a well-circumscribed subcapsular density of about 2 cm. Notably PET scan done at OSH 06/2024 had noted a subcapsular liver lesion that was not FDG avid # anemia # reported intermittent melena in the past -Macrocytic anemia in light of multiple bony metastasis. Also reported intermittent melena in the past with most bowel movement brown -Anemia multifactorial-bony mets replacing marrow tissue vs component of real melena -can plan eval with EGD, will defer discussion workup of mets as the underlying cause to primary vs outpatient with her onc provider -timing of EGD pending clinical course -can continue with diet today and continue resuscitation as before. In case of overt GI bleed of hemodynamic significance, recommend CTA gi bleed protocol # thrombocytopenia -Noted thrombocytopenia that has been longstanding but never as low as 60s until this admission -could be from bone marrow replacement with mets -reviewed abdominal imaging, liver appearance is not cirrhotic neither other features of portal HTN seen. This points it to be less likely splenic sequestration. -can consider inpatient heme vs continued follow up with outpatient oncologist # liver lesion -seen on PET scan 06/2024 at OSH and was noted to be not FDG avid then -Again seen on CT abdomen triple phase 12/05/2024 without any arterial enhancement. Concerns are for breast cancer metastasis. -Defer to primary team to work it up inpatient vs outpatient with primary onc provider # renal lesion -Concerning for RCC, has also been seen on the PET scan 06/2024 -Defer to primary team to work it up inpatient vs outpatient with primary onc provider Patient was seen and discussed with Dr. Vale. GI will continue to follow. Please call with any questions. Pipo Ariza MD PGY-5 Gastroenterology and hepatology Contact information available through [facility] Associated attestation - Marbella Vale MD - 12/05/2024 2:35 PM CDT I personally examined the patient on 12/05/[address] Ariza's note as written. I actively participated in the decision-making process. Please see the fellow's note for additional details. Marbella Vale MD Obstetrics Nurse Practitioner Gastroenterology and Hepatology [facility] 2024-12-04 12:15:07 Associated Order(s): CONSULT ADULT PHYSICAL THERAPY Patient agreeable to working with physical therapy. Patient semireclining in bed and Heels offloaded? No: not required as patient is alert and oriented, as well as exhibits sufficient LE strength and ability to move/reposition LEs/heels throughout the day, No visitors present. Recommend nursing staff utilize cane or hand held assistance to safely assist patient with mobility out of the bed or chair. PHYSICAL THERAPY EVALUATION Consult received, chart reviewed and evaluation complete this date. Patient is referred to PT for evaluation and treatment. Patient is a 74 year old female who presents to hospital for Dyspnea, unspecified type [R06.00] . Per chart, patient sustained a left humerus pathological fracture in October that required surgical intervention on November 21, 2024. She is currently using immobilization sling and is NWB. Discharge Recommendations: Therapy Needs and Potential: Patient would benefit from continued physical therapy services to address: decline in bed mobility decline in transfers decline in gait and/or balance decline w/c mobility decreased strength decreased endurance Patient demonstrates good potential to improve and meet therapy goals with further physical therapy services. Patient appears motivated to improve their functional mobility and return to their previous level of function. Patient demonstrates ability to tolerate atleast 30-60 minutes of physical therapy with active participation. Challenges to Home Transition: increased risk of falls decreased caregiver availability Equipment recommendations: Patient has or access to necessary equipment Current Functional Status and/or Treatment: AM-PAC 6 Clicks (Raw Score 0=Dependent, 24=Independent; Low function Raw Score 0= Dependent, 32=Independent): Raw Score - Basic Mobility : 17 T-Scale Score - Basic Mobility : 39.67 Bed Mobility: Supine-sit: Supervision Sitting balance Fair+ Scooting to edge of bed: Supervision Dizziness No Transfers: Sit to stand: Minimal Assistance using hand held assistance Stand to sit: Minimal Assistance using hand held assistance Static/dynamic standing balance: Fair Verbal cueing provided for correct hand placement and correct use of AD Dizziness No Ambulation: Assisted patient with ambulation as follows: 20 feet x 10 feet using hand held assist and Minimal Assistance. Patient presenting with Step-to gait pattern. Dizziness No Therapeutic exercise: patient educated in Compensatory techniques/adaptive strategies, Deep breathing, Fall prevention, General strengthening, Positioning, Relaxation/breathing techniques, and Safety awareness., instructed patient in the following: ankle pumps, long arc quads, seated marching, patient/caregiver instructed to perform HEP 2 times per day, 10 repetitions., and patient/caregiver verbalizes understanding of instructions. Functional Outcome Measures: (Values within the past 12 hours) Tinetti Gait Score- # / 12 Initiation of gait: No hesitancy Step length: Neither foot passes the other Foot clearance: Neither foot completely clears the floor Step Symmetry: Step lengths not equal Step continuity: Steps appear continuous Path: Mild/moderate deviation or uses AD Trunk: Marked sway or uses AD Walking: Heels apart Tinetti Gait Score: 3 Tinetti Gait Score Interpretation: < 7 - Increased risk for falls After session, patient sitting upright in bedside chair and Heels offloaded? No: not required as patient is alert and oriented, as well as exhibits sufficient LE strength and ability to move/reposition LEs/heels throughout the day, No visitors present and Medline chair alarm engaged. Call button provided. RN notified of patient status and participation with PT. PLAN OF CARE: While in the hospital, PT will follow patient at least 2 times per week,once or twice a day, per patient's tolerance and needs. See below for complete details. Admit Date: 12/03/2024 Hospital Diagnosis:Dyspnea, unspecified type [R06.00] PT Diagnosis: Difficulty walking, Weakness, Malaise/fatigue, Dyspnea, Pain, and Abnormality of gait and balance Weight Bearing Precaution: NWB, Left, UE General Precautions: PPE used:Gloves and Surgical mask, General, Fall,IV , oxygen: Nasal canula Bracing/Cast present or required: Sling PMH: Past Medical History: Diagnosis Date Arthritis Asthma Bone cancer Breast cancer 01/2014 Bilateral, Left invasive ductal, Right tubular, diagnosed in [place]. [facility] Genetic Screening panel negative 02/2017. Hypertension Hypothyroid Postmenopausal vaginal bleeding 2014 PSH: Past Surgical History: Procedure Laterality Date ABDOMINAL HYSTERECTOMY N/A 11/04/2015 With BSO too. Surgeon: Clarita Casillas; [facility] BREAST BIOPSY WITH NEEDLE LOCALIZATION Right 11/04/2015 Surgeon: Daniela Mcqueen; [facility] BREAST LUMPECTOMY BX OF BREAST, NEEDLE CORE, IMAGE GUIDE Bilateral 2013 [place], [facility] breast cancer COLONOSCOPY N/A 11/15/2017 Surgeon: Alejandro Barber MD; Location[facility] Location ENDOMETRIAL BIOPSY 09/24/2015 HUMERUS INTRAMEDULLARY NAILING Left 11/21/2024 Surgeon: Addie Aguilera MD; Location: [facility] LOCATION JOINT SURGERY Right LYMPH NODE DISSECTION Left 11/04/2015 Surgeon: Daniela Mcqueen; Location: [facility] [place] MAMMOGRAM, BILATERAL-DIAGNOSTIC 02/16/2014 OBSTE CARE,VAG DELIV+ 1967, 1971 REDUCTION MAMMOPLASTY Bilateral 11/04/2015 Surgeon: Jake Tomlin MD; Location: [facility] [place] SEGMENTAL MASTECTOMY Bilateral 11/04/2015 Left central lumpectomy with nipple/areola excision, Right needle localized lumpectomy. Surgeon: Daniela Mcqueen; [facility]: [facility] [place] SENTINEL LYMPH NODE MAPPING Right 11/04/2015 Surgeon: Daniela Mcqueen; Location: [facility] [place] TONSILLECTOMY 1949' US CORE BIOPSY Left axillary node core biopsy positive for breast cancer PRIOR LIVING SITUATION: lives along in 3rd floor apt, elevator access DME: Single Point Cane, Rolling Walker, Four wheeled walker with seat, Wheel Chair Prior level of Mobility: house hold ambulation, ambulates with four wheeled walker with seat or cane Suspected ischemic or hemorraghic stroke:No Subjective: Patient reports prior to humerus fracture she would use walker to walk but now that she can't put weight on left arm she has been using a wheelchair to get around apartment. Patient/Family Goals: Patient/service representative encouraged by therapist to set a goal,but did not state a goal this visit Patient/Family verbalizes understanding of condition: Yes PAIN: -Pain Description: variable -Pain Location: left shoulder -Pain rating before treatment: does not rate, After treatment: does not rate -Pain Management: Decreased movement aides in some pain reduction and Repositioning Provided COMMUNICATION Primary Language: Filipino Able to Verbalize needs: Yes Vision:reading glasses Hearing:good; no issues reported ORIENTATION/COGNITION: Oriented to: person, place, date/time, and situation Awake: Yes Alert: Yes Dizzy: No Follows Commands: Yes 1-Step Yes Multi-Step Yes Inconsistent: No NEUROLOGICAL Light Touch: within functional limits bilateral LE Heel to gomez: Normal Tone: Normal BALANCE: Sitting: Static: Fair+ Dynamic: Fair+ Standing: Static: Fair Dynamic: Fair RANGE OF MOTION: within functional limits bilateral LE STRENGTH: 4-/5 (G-), bilateral LE ENDURANCE: Fair+, Nasal canula SKIN INTEGRITY: intact at observable areas PROBLEM LIST: Decline in bed mobility, Decline in gait, Decline in transfers, Decreased strength, Decreased endurance, Decreased balance, decline in wheel chair mobiliity, Weight bearing restrictions, and Pain ASSESSMENT: Patient is a 74 year old female seen secondary to the above listed diagnosis. Patient would benefit from continued PT to address the above listed deficits to maximize independence and safety with functional mobility. Rehabilitation Potential: guarded Goals: The following goals are to maximize independence and safety with functional mobility to eventually return to prior living situation and prior functional status. Upon discharge, patient and/or family will demonstrate the followin. Supine-sit: Independent 2. sit-stand: Independent 3. Independent with ambulation, Feet: 50 using least assistive device. 4 Independent with wheelchair propulsion and management of brakes. Treatment Plan: Gait training, Therapeutic exercise, Transfer training, Balance training, Bed mobility training, Equipment needs assessment, Safety education, patient/caregiver education, Wheelchair mobility training, Pain management, Neuromuscular Re-Education, and Functional Motor Training PATIENT EDUCATION: Patient provided with preferred teaching of verbal information on role of PT, plan of care, benefits of functional mobility. Shows readiness to learn. Verbal instruction teaching provided. Individual is able to read and verbalizes understanding of teaching provided. Total Time Tx Codes in Minutes: 25 min Total Treatment Time in Minutes: 34 min Conchita Boggs PT, DPT Pt will be followed by physical therapy, however, this therapist may not be primary therapist. [place] [phone] for questions or concerns. Conchita Boggs PT [facility] 2024-12-04 11:08:00 Associated Order(s): CONSULT ADULT OCCUPATIONAL THERAPY OT GENERAL EVALUATION Consult received via [employer], EMR reviewed and evaluation completed 12/04/24. Patient referred to occupational therapy for evaluation and treatment secondary to Dyspnea, unspecified type [R06.00]. Patient agreeable to participate in occupational therapy. Patient found reclining in bedside chair, No visitors present and Medline chair alarm engaged. Discharge Recommendations: Therapy Needs and Potential:- Patient would benefit from continued skilled occupational therapy services to address: Decline in basic activities of daily living, Decline in instrumental activities of daily living, Decreased strength, Decreased range of motion, Decreased endurance, and Decreased coordination - Patient demonstrates good potential to improve and meet therapy goals with further skilled occupational therapy services. - Patient appears motivated to improve their BADLS and IADLs and return to their previous level of function. - Patient able to follow commands: 1-step Yes, Multi-step Yes, Inconsistencies No Challenges to Home Transition:- Limited caregiver availability - Decreased safety awareness/judgement - Increased risk of falls Equipment Recommendations: Patient has necessary equipment. PLAN OF CARE: At least 2x/week Precautions: Weight bearing status: NWB L UE General: PPE Utilized: Gloves, Fall, and IV to R UE Bracing: Sling L UE Subjective: "I know what the difference is between physical therapy and occupational therapy. My daughter is an occupational therapist." Current Occupational Performance and/or Treatment: AM-PAC 6 Clicks (Raw Score 0=Dependent, 24=Independent; Low function Raw Score 0= Dependent, 32=Independent): Raw Score - Daily Activity: 14 T-Scale Score - Daily Activity: 33.39 Feeding: Supervision, Patient requires assistance to open containers on meal tray but is able to feed self. Grooming: Supervision, Patient washed face sitting upright at EOB. UB Dressing: Moderate Assistance, Patient don/doff hospital gown anteriorly while sitting upright in bed requiring assistance to thread right arm through sleeve. Simulated BSC Toilet Transfer: Minimal Assistance, Patient performed sit to stand from bedside chair with ESTIMATOR PRINTING PLATE MAKING and performed self-care mobility with ESTIMATOR PRINTING PLATE MAKING back to EOB and stand to sit with minimal assistance. Functional Mobility: Patient reclining in bedside chair upon arrival. Patient scooted forward to edge of bedside chair with supervision, sit to stand using ESTIMATOR PRINTING PLATE MAKING with minimal assist, self-care mobility with ESTIMATOR PRINTING PLATE MAKING back to EOB, stand to sit with minimal assistance, sit to supine with minimal assistance and repositioning to HOB with minimal assistance. Patient/caregiver educated on:Adaptive equipment , ADL training, AROM, Compensatory techniques/adaptive strategies, Energy conservation, Fall prevention, General strengthening, Relaxation/breathing techniques, Role of OT, Safety awareness, and WB restrictions Patient left semireclining in bed with call del valle in reach. Nursing present. Please, see full evaluation below for more detail. OT EVALUATION: 74 year old female Admit date: 12/03/2024 Date of onset: 12/03/2024 Admit Diagnosis: Dyspnea, unspecified type [R06.00] OT Diagnosis: Impaired BADL independence, Impaired IADL independence, Weakness, Activity intolerance, Decreased endurance, Impaired self-care mobility, Decreased UE Function Non-Dominant, and Pain PMH: Past Medical History: Diagnosis Date Arthritis Asthma Bone cancer Breast cancer 01/2014 Bilateral, Left invasive ductal, Right tubular, diagnosed in [place]. [facility] Genetic Screening panel negative 02/2017. Hypertension Hypothyroid Postmenopausal vaginal bleeding 2014 PSH: Past Surgical History: Procedure Laterality Date ABDOMINAL HYSTERECTOMY N/A 11/04/2015 With BSO too. Surgeon: Clarita Casillas; [facility] [place] BREAST BIOPSY WITH NEEDLE LOCALIZATION Right 11/04/2015 Surgeon: Daniela Mcqueen; [facility] [place] BREAST LUMPECTOMY BX OF BREAST, NEEDLE CORE, IMAGE GUIDE Bilateral 2013 [place], [facility] breast cancer COLONOSCOPY N/A 11/15/2017 Surgeon: Alejandro Barber MD; Location[facility] Location ENDOMETRIAL BIOPSY 09/24/2015 HUMERUS INTRAMEDULLARY NAILING Left 11/21/2024 Surgeon: Addie Aguilera MD; Location: [facility] OR LOCATION JOINT SURGERY Right LYMPH NODE DISSECTION Left 11/04/2015 Surgeon: Daniela Mcqueen; [facility] [place] MAMMOGRAM, BILATERAL-DIAGNOSTIC 02/16/2014 OBSTE CARE,VAG DELIV+ 1967, 1971 REDUCTION MAMMOPLASTY Bilateral 11/04/2015 Surgeon: Jake Tomlin MD; Location: [facility] [place] SEGMENTAL MASTECTOMY Bilateral 11/04/2015 Left central lumpectomy with nipple/areola excision, Right needle localized lumpectomy. Surgeon: Daniela Mcqueen; [facility] [place] SENTINEL LYMPH NODE MAPPING Right 11/04/2015 Surgeon: Daniela Mcqueen; [facility]: [facility] [place] TONSILLECTOMY US CORE BIOPSY Left axillary node core biopsy positive for breast cancer PAIN: Pain Location: right hip Pain rating before treatment: 4, After treatment: 5 Pain Management: Nursing Notified, Decreased movement aides in some pain reduction, and Repositioning Provided OCCUPATIONAL ROLES/HOME ENVIRONMENT: Home environment: Lives alone, 12/04 supervision/assistance is not available, Upstairs apartment , and Elevator. Daughter comes by on regular basis to assist with all needs. Bathroom access: Yes Bathroom setup: Combo Occupation(s): Retired Function prior to admission: Prior to shoulder surgery using RW for Household ambulation and independent with ADLs and IADLs. After shoulder surgery 11/21/2024- Wheelchair primary and assistance with BADLs, and IADLs Suspected ischemic or hemorraghic stroke patient: No Equipment prior to admission: 4 wheeled walker, Hand held shower, raised commode seat, Straight Cane, Tub transfer bench, Wheelchair PERFORMANCE SKILLS/FACTORS: UE Muscle Tone: bilateral WNL UE ROM: right AROM WFL except left UE in sling UE Strength: unable to assess L UE due to NWB and R UE 12/23 Hand dominance: right Dexterity/Coordination: left Impaired and right Intact Endurance - Sitting: Fair+ Standing: Fair Sitting Balance - Static: Good Dynamic: Good Standing: Balance - Static Fair+ Dynamic: Fair Dizziness: No Skin Integrity: Refer to nurses assessment for details Sensation: bilateral Intact to light touch Oral Motor: WFL Communication: Able to verbalize needs Yes Other: N/A Vision: WFL Yes Other: N/A Hearing: good; no issues reported COGNITION: Orientation: person, place, date/time, and situation Follows Commands: 1-step Yes Multi-step Yes Inconsistencies No Safety Awareness/Judgment: Good PROBLEM LIST: Decreased independence with ADL, Decreased functional ROM, Decreased strength/endurance for functional activity, and Impaired safety awareness REHAB POTENTIAL/PROGNOSIS: excellent PATIENT/FAMILY GOALS: 'I want to be able to gain my strength back in my arm." TREATMENT/INTERVENTION PLAN: Functional motor treatment, Patient/Caregiver Education, Equipment recommendations, Daily living activities, and Therapeutic exercises GOAL(S): By discharge, patient will increase independence in daily living skills as follows: 1 Patient will perform toilet transfer with independence. 2 Patient will perform UB dressing with minimal assistance. 3 Patient will perform LB dressing with minimal assistance. 4 Patient will complete 2 grooming tasks with supervision while standing at the sink. 5 Patient will complete toileting hygiene, including clothing management, with independence. 6 Patient will increase endurance for functional activity as evidenced by ability to sustain 25 minutes of active participation. 7 Patient/caregiver will verbalize/demonstrate understanding/proficiency in the following home programs: Adaptive equipment , AROM, Compensatory techniques/adaptive strategies, Dexterity/fine motor coordination, Energy conservation, Fall prevention, General strengthening, and WB restrictions PATIENT-FAMILY TEACHING Patient provided with preferred teaching of verbal information and demonstration on Adaptive equipment , ADL training, AROM, Compensatory techniques/adaptive strategies, Energy conservation, Fall prevention, General strengthening, Relaxation/breathing techniques, Role of OT, Safety awareness, and WB restrictions . Shows readiness to learn. Verbal instruction and Demonstration teaching provided. Individual is able to read and verbalizes understanding of teaching provided and needs reinforcement of teaching. GABI Miramontes Total Timed Treatment Codes: 16 Min Total Treatment Time: 26 Min Patient Complexity Level Moderate - An occupational therapy evaluation of moderate complexity was completed using the above tests and measures. The following information was obtained: An occupational profile and medical and therapy history, including an expanded review of medical and/or therapy records and additional review of physical, cognitive, or psychosocial history related to current functional performance, Various standardized and non-standardized assessments were used to identify at least 3-5 performance deficits related to physical, cognitive, or psychosocial skills that result in activity limitations and/or participation restrictions, and Clinical decision making of moderate analytic complexity, which includes an analysis of the occupational profile, analysis of data from detailed assessment(s), and consideration of several treatment options. Patient may present with comorbidities that affect occupational performance. Minimal to moderate modification of tasks or assistance (e.g., physical or verbal) with assessment(s) is necessary to enable patient to complete evaluation component. Nataliia Yi OT [facility] 2024-12-04 10:28:08 Associated Order(s): CONSULT PULMONARY MEDICINE Pulmonary Medicine Consultation Note Date of Service:12/04/2024 Chief Complaint: SOB History of Presenting Illness: Ms. Gaming is a 74 y/o woman with hx of osteosarcoma, breasste CA, HTN and asthma came to the hospital with difficulty breathing. Patient reported using albuterol without relief. She was hypoxic on room air placed on oxygen support and was found to have anemia on CBC. She was transferred to [place] for further workup. Patient was found to have effusion on chest imaging on the right. Past Medical History: Past Medical History: Diagnosis Date Arthritis Asthma Bone cancer Breast cancer 01/2014 Bilateral, Left invasive ductal, Right tubular, diagnosed in [place]. [facility] Genetic Screening panel negative 02/2017. Hypertension Hypothyroid Postmenopausal vaginal bleeding 2014 Social History: Social History Tobacco Use Smoking status: Never Passive exposure: Never Smokeless tobacco: Never Vaping Use Vaping status: Never Used Substance Use Topics Alcohol use: No Alcohol/week: 0.0 standard drinks of alcohol Comment: drank for 4-5 years, quit 1987 Drug use: No Review of System (ROS): General: (-) fever, (-) weight gain Skin: (-) lesion HEENT: (-) change in hearing Neck: (-) difficulty swallowing Heme: (-) bleeding disorder Resp: (+) dyspnea on exertion Cardio: (-) chest pain, (-) palpitations GI: (-) nausea, (-) diarrhea, (-) constipation : (-) difficulty urinating Endo: (-) polyuria Neuro: (-) weakness Back: (-)spasms MS: (-) joint pain Psych: (-) psychiatric disorder Vital Signs: Vitals: 12/03/24 2246 12/04/24 0334 12/04/24 0803 12/04/24 0805 BP: (!) 164/80 (!) 143/70 (!) 142/66 Pulse: 91 83 79 82 Resp: 16 18 17 18 Temp: 36.7 ?C (98 ?F) 36.4 ?C (97.6 ?F) 36.5 ?C (97.7 ?F) TempSrc: Oral SpO2: 97% 96% 91% 96% Weight: Height: Physical Examination: General: alert and oriented x 3 (person, place, date/time, and situation); no apparent distress, well developed, well nourished HEENT: pupils equal, round, reactive to light; extraocular movements intact; oropharynx clear; moist mucous membranes Neck: supple, no lymphadenopathy, no bruits, no JVD Lungs: clear to auscultation bilaterally Cardio: S1, S2 normal; no murmurs, rubs or gallops Abdomen: soft; non-tender; non-distended; normoactive bowel sounds : not examined Rectal: not examined Extremities: no clubbing, cyanosis, or edema Skin: no rashes Neuro: alert and oriented x 3 Lab Data/Imaging: Recent Results (from the past 24 hour(s)) AC Panel 20 + Lactic Acid Collection Time: 12/03/24 5:40 PM Result Value Ref Range PH 7.42 7.35 - 7.45 PCO2 41 35 - 45 mmHg PO2 98 80 - 100 mmHg HCO3 26 22 - 26 mEq/L BE 1.5 -3.0 - 3.0 mEq/L THB 8.3 (LL) 12.0 - 16.0 g/dL %O2HB 95.2 94.0 - 99.0 % %COHB ART 0.8 0.0 - 1.5 % %METHB ART 0.3 (L) 0.4 - 1.5 % VOL%O2 ART 11.3 (L) 15.0 - 23.0 % NA 134 (L) 135 - 145 mmol/L K+ 4.0 3.5 - 5.0 mmol/L AC CA IONZ 4.90 4.50 - 5.30 mg/dL GLUCOSE 91 70 - 110 mg/dL LACTIC ACID 1.80 0.50 - 2.20 mmol/L CBC WITH DIFF Collection Time: 12/03/24 7:06 PM Result Value Ref Range WBC 5.28 4.30 - 11.10 10*3/?L RBC 2.34 (L) 3.93 - 5.25 10*6/?L HGB 7.5 (L) 11.6 - 15.0 g/dL HCT 24.4 (L) 35.7 - 45.2 % MCV 104.3 (H) 80.6 - 95.5 fL MCH 32.1 25.9 - 32.8 pg MCHC 30.7 (L) 31.6 - 35.1 g/dL RDW-SD 64.9 (H) 39.0 - 49.9 fL RDW-CV 17.5 (H) 12.0 - 15.5 % PLT 66 (L) 166 - 358 10*3/?L MPV 12.1 9.5 - 12.9 fL IPF % 4.0 1.3 - 7.7 % NRBC/100 WBC 4.7 0.0 - 10.0 /100 WBCs NRBC x10 3 0.25 10*3/?L GRAN MAT (NEUT) % 69.2 % IMM GRAN % 9.30 % LYMPH % 12.3 % MONO % 7.6 % EOS % 0.8 % BASO % 0.8 % GRAN MAT x10 3 (ANC) 3.66 1.88 - 7.09 10*3/uL IMM GRAN x10 3 0.49 (H) 0.00 - 0.06 10*3/uL LYMPH x10 3 0.65 (L) 1.32 - 3.29 10*3/uL MONO x10 3 0.40 0.33 - 0.92 10*3/uL EOS x10 3 0.04 0.03 - 0.39 10*3/uL BASO x10 3 0.04 0.01 - 0.07 10*3/uL TOXIC CHANGES Present (A) COMP. METABOLIC PANEL (26741) Collection Time: 12/03/24 7:06 PM Result Value Ref Range NA 134 (L) 135 - 145 mmol/L K 4.0 3.5 - 5.0 mmol/L CL 97 (L) 98 - 108 mmol/L CO2 TOTAL 29 23 - 31 mmol/L AGAP 8 2 - 16 BUN 26 (H) 7 - 23 mg/dL GLUCOSE 95 70 - 110 mg/dL CREATININE 0.93 0.50 - 1.04 mg/dL TOTAL BILI 1.6 (H) 0.1 - 1.1 mg/dL CALCIUM 10.6 8.6 - 10.6 mg/dL T PROTEIN 6.9 6.3 - 8.2 g/dL ALBUMIN 4.0 3.5 - 5.0 g/dL ALK PHOS 270 (H) 34 - 122 U/L ALTv 35 5 - 35 U/L AST(SGOT) 84 (H) 13 - 40 U/L eGFR 64.2 mL/min/1.73m2 TROPONIN I Collection Time: 12/03/24 7:06 PM Result Value Ref Range TROPONIN I 0.008 <=0.034 ng/mL N-TERMINAL PRO-BNP Collection Time: 12/03/24 7:06 PM Result Value Ref Range NT-proBNP 712 <=125 pg/mL Procalcitonin Collection Time: 12/04/24 1:16 AM Result Value Ref Range Procalcitonin 0.20 (H) <0.08 ng/mL CBC WITH DIFF Collection Time: 12/04/24 1:16 AM Result Value Ref Range WBC 6.36 4.30 - 11.10 10*3/?L RBC 2.28 (L) 3.93 - 5.25 10*6/?L HGB 7.3 (L) 11.6 - 15.0 g/dL HCT 23.1 (L) 35.7 - 45.2 % MCV 101.3 (H) 80.6 - 95.5 fL MCH 32.0 25.9 - 32.8 pg MCHC 31.6 31.6 - 35.1 g/dL RDW-SD 62.3 (H) 39.0 - 49.9 fL RDW-CV 17.1 (H) 12.0 - 15.5 % PLT 69 (L) 166 - 358 10*3/?L MPV 10.3 9.5 - 12.9 fL IPF % 2.9 1.3 - 7.7 % NRBC/100 WBC 3.1 0.0 - 10.0 /100 WBCs NRBC x10 3 0.20 10*3/?L SEG % 75 33 - 76 % BAND % 18 (H) 0 - 1 % META % 1 (H) <=0 % LYMPH % 2 (L) 14 - 54 % MONO % 2 0 - 4 % EOS % 1 0 - 3 % BASO % 1 0 - 1 % ANC 5.91 1.88 - 7.09 10*3/uL POLYCHROMASIA 2+ 2+ TOXIC CHANGES Present (A) PLT ESTIMATE Decreased (A) Normal BASIC METABOLIC PANEL (NA, K, CL, CO2, GLUCOSE, BUN, CREATININE, CA) Collection Time: 12/04/24 1:16 AM Result Value Ref Range NA 134 (L) 135 - 145 mmol/L K 4.4 3.5 - 5.0 mmol/L CL 100 98 - 108 mmol/L CO2 TOTAL 25 23 - 31 mmol/L AGAP 9 2 - 16 BUN 26 (H) 7 - 23 mg/dL GLUCOSE 140 (H) 70 - 110 mg/dL CREATININE 0.75 0.50 - 1.04 mg/dL CALCIUM 9.8 8.6 - 10.6 mg/dL eGFR 83.1 mL/min/1.73m2 XR Chest 1 vw Result Date: 12/03/2024 FINDINGS/IMPRESSION: Lungs and pleura: Moderate to large right pleural effusion is again seen with new small fissural extension. Left lower lobe atelectasis. No focal consolidations. Cardiomediastinal: The cardiomediastinal silhouette is normal accounting for technique. Musculoskeletal: Heterogeneous osseous structures of bilateral shoulder bones, may be related to osteopenia. Internal fixation of the left proximal humerus. Postsurgical changes are seen projected over the left breast and axilla. Impressions: Acute hypoxemic respiratory failure Pleural effusions Osteosarcoma History of breast cancer Asthma Recommendations: Currently on oxygen support at 2 L Chest x-ray reviewed shows effusion on the right Will get IR guided thoracentesis with fluid analysis done Continue Pulmicort and DuoNebs for asthma management I do not think asthma is exacerbation at this time Symptoms due to pleural effusion Rule out malignant effusion with recent history of osteosarcoma DVT phylaxis Full code [facility] - Health History and Physical Notes Date/Time Note Provider Source 2024-12-07 08:22:41 Endoscopy H & P Age: [age] year old Sex: female ASA Class: IV Indication: EGD - intermittent melena, anemia Blood thinners: None Previous Endoscopy: EGD: no Colonoscopy:colonoscopy 2017 Subjective/Interval history: 74/F PMH HTN, hypothyroidism, postmenopausal vaginal bleeding, breast cancer c/b bony mets and pathological fracture s/p radiation in past, prior gastric ulcer c/b perforation s/p siva patch 12/2023, and asthma who presents to [facility] with Shortness of Breath x2 d. Notably had a pathological humerus fracture 10/2024 2/2 bony mets from breast Ca. At [place] she needed supplemental O2 and found to be anemic and large pleural effusion s/p thoracentesis. Notably Hb is 7.5, macrocytic and also thrombocytopenic with no known prior liver disease. Does report family history of PBC in her sibling but Liver imaging with CT abdomen triple phase shows normal shape and size of the abdomen with a well-circumscribed subcapsular density of about 2 cm. Notably PET scan done at OSH 06/2024 had noted a subcapsular liver lesion that was not FDG avid. EGD to eval melena anemia Past Medical History: Diagnosis Date Arthritis Asthma Bone cancer Breast cancer 01/2014 Bilateral, Left invasive ductal, Right tubular, diagnosed in [place]. [facility] Genetic Screening panel negative 02/2017. Hypertension Hypothyroid Postmenopausal vaginal bleeding 2014 Current Facility-Administered Medications Medication Dose Route Frequency Last Rate Last Admin furosemide (LASIX) tablet 40 mg 40 mg Oral DAILY 40 mg at 12/06/24 1437 ipratropium-albuteroL (DUONEB) 0.5 mg-3 mg(2.5 mg base)/3 mL nebulizer solution 3 mL 3 mL Inhalation BID 3 mL at 12/06/24 0837 levoFLOXacin (LEVAQUIN) tablet 750 mg 750 mg Oral Q24H ABX 750 mg at 12/06/24 0834 pantoprazole (PROTONIX) EC tablet 40 mg 40 mg Oral BID 40 mg at 12/06/24 0834 acetaminophen (TYLENOL) tablet 650 mg 650 mg Oral Q6HPRN albuterol (VENTOLIN) inhaler 2 Puff 2 Puff Inhalation Q6HPRN budesonide (PULMICORT RESPULE) nebulizer solution 0.5 mg 0.5 mg Inhalation BID 0.5 mg at 12/06/24 0837 cholecalciferol (vitamin D3) tablet 1,000 Units 1,000 Units Oral DAILY 1,000 Units at 12/06/24 1437 gabapentin (NEURONTIN) capsule 100 mg 100 mg Oral BIDPRN 100 mg at 12/04/24 0107 hydralAZINE (APRESOLINE) injection 10 mg 10 mg Slow IV Push Q6HPRN 10 mg at 12/04/24 0204 labetaloL (NORMODYNE) 5 mg/mL injection 10 mg 10 mg Slow IV Push Q6HPRN levothyroxine (SYNTHROID) tablet 75 mcg 75 mcg Oral QAM-0600 75 mcg at 12/06/24 0515 LORazepam (ATIVAN) tablet 0.5 mg 0.5 mg Oral PRN melatonin (MELATIN) tablet 6 mg 6 mg Oral QHSPRN 6 mg at 12/04/24 0107 kewzcifj-uohh-WF-calcium-mins (THERA-M) 9 mg iron-400 mcg tablet 1 tablet Oral DAILY 1 tablet at 12/06/24 0834 ondansetron (ZOFRAN (PF)) injection 4 mg 4 mg Slow IV Push Q6HPRN 4 mg at 12/05/24 0551 sennosides-docusate sodium (SENOKOT-S) 8.6-50 mg per tablet 1 tablet 1 tablet Oral DAILY 1 tablet at 12/06/24 0834 traMADoL (ULTRAM) tablet 50 mg 50 mg Oral Q6HPRN 50 mg at 12/06/24 0834 Allergies Allergen Reactions Tree Nuts Itching Especially walnuts Aspirin Other - See comments Cefdinir Hives Codeine Unknown - See comments Melon Other - See comments "Itchy throat" Morphine Nausea and/or Vomiting Shellfish [Iodine And Iodide Containing Products] Unknown - See comments Upsets her stomach Social History Socioeconomic History Marital status: Occupational History 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 Divorce with 2 grown daughters. Is retired. Wants to spend as much quality time with family as possible. Motivated to address health issues to be able to be present for and experience family. DEMETRA GIRALDO MD 05/07/2015 11:25 AM 01/03/2021 Moved to [place] from [place] to be near daughter. Son lives in [place]. 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; Likes to spend time with family Social Determinants of Health Food Insecurity: No Food Insecurity (12/04/2024) NCSS - Food Insecurity Worried About Running Out of Food in the Last Year: No Ran Out of Food in the Last Year: No Transportation Needs: No Transportation Needs (12/04/2024) NCSS - Transportation Lack of Transportation: No Housing Stability: Not At Risk (12/04/2024) NCSS - Housing/Utilities Has Housing: Yes Worried About Losing Housing: No Unable to Get Utilities: No Mental Status: alert, oriented x3 Chest: clear to auscultation Cardiovascular: regular rate and rythmn Abdomen: bowel sounds present Tenderness: NO Impression and Plan: Proceed with EGD as planned Education provided to the patient and family about the procedure. Benefits, risks, alternatives, and likelihood of achieving patient's goals of care discussed. Risks discussed including but not limited to aspiration, infection, bleeding, perforation, missed polyps/lesions, failure to obtain a diagnosis, failure to complete the procedure, cardiovascular complications such as VA, stroke, arrhythmia, and . Informed consent obtained. Pipo Ariza MD PGY-5, Gastroenterology and Hepatology Associated attestation - Marbella Vale MD - 12/07/2024 8:31 AM CDT I personally examined the patient on 12/07/[address] Ariza's note as written. Proceed with EGD. Marbella Vale MD Obstetrics Nurse Practitioner Gastroenterology and Hepatology [facility] Procedure Notes Date/Time Note Provider Source 2024-12-08 13:17:54 VASCULAR AND INTERVENTIONAL RADIOLOGY PROCEDURE NOTE Pre-procedure diagnosis: Recurrent right pleural effusion. Malignant effusion. Post-procedure diagnosis: Same. Procedure: Successful image guided left 16 Fr tunneled pleural (PleurX) catheter placement. Findings: - Initial CT and US demonstrated moderate volume Leftsided effusion. - 16F straight tip silicone catheter tunneled and placed in the right pleural space. - Approximately 400 mL of serosanguinous output was drained and the pigtail catheter was attached to pleur-evac. - Post-procedure imaging showed confirmed pigtail catheter placement in the pleural fluid cavity. Complications: None immediate. Condition: Unchanged, Stable EBL: Minimal, < 5 cc PLAN: - Can keep chest tube to water seal while IP, but defer management to primary/pulmonology team. - Educate patients how to use vacuum bottles while OP. Please call us with any questions or concerns. Full dictated note to follow in PACS. Kaylee Oakes MD, [facility]3] Staff RAD-VASCULAR & INTERVENTIONAL RADIOLOGY STAFF [facility] 2024-12-04 14:14:00 VASCULAR AND INTERVENTIONAL RADIOLOGY PROCEDURE NOTE Pre-procedure diagnosis: Right pleural effusion Post-procedure diagnosis: Same Procedure: Successful ultrasound guided right thoracentesis. Findings: Moderate volume right pleural effusion. Ultrasound guided thoracentesis. 1000 cc serous fluid aspirated. Samples sent to lab for analysis. Post procedure CXR showed no pneumothorax. Complications: None immediate Condition: Unchange Estimated blood loss: Minimal. Full dictated note to follow in PACS. Kaylee Oakes MD, EBIR VIR Staff 12/04/2024 - 2:25 PM [facility] 2024-11-21 11:51:14 Associated Order(s): Intubation Intubation Date/Time: 11/21/2024 11:29 AM Urgency: elective Airway not difficult General Information and Staff Patient location during procedure: OR Performed: resident/SUPERVISOR [employer]ACING Performed by: Robert Hernández CRNA Authorized by: Casper Robles MD Indications and Patient Condition Indications for airway management: anesthesia and airway protection Spontaneous Ventilation: absent Sedation level: deep Preoxygenated: yes Patient position: sniffing MILS maintained throughout Mask difficulty assessment: 2 - vent by mask + OA or adjuvant +/- NMBA No planned trial extubation Final Airway Details Final airway type: endotracheal airway Successful airway: ETT Cuffed: yes Successful intubation technique: video laryngoscopy (Agar) Facilitating devices/methods: intubating stylet Endotracheal tube insertion site: oral Blade size: #3 ETT size (mm): 7.5 Cormack-Lehane Classification: grade I - full view of glottis Placement verified by: chest auscultation, capnometry and palpation of cuff Cuff volume (mL): 7 Measured from: lips ETT to lips (cm): 22 Number of attempts at approach: 1 Ventilation between attempts: none Number of other approaches attempted: 0 Additional Comments Elective video laryngoscopy. Eyes taped prior to placement, smooth, atraumatic, dentition and lips unchanged from pre-op. ENGINEER NACR-NURSE FURNACE OPERATOR OIL OR GAS,CERTIFIED REGISTERED NURSE FURNACE OPERATOR OIL OR GAS [facility] 2024-11-21 11:23:28 Associated Order(s): Nerve Block Images from the original note were not included. Nerve Block Procedure: Supraclavicular Nerve Block Patient Location: Holding Laterality: Left Surgical Anesthesia: Post Op Pain: Start Time: 11/21/2024 11:23 AM End Time: 11/21/2024 11:23 AM Post Op Pain Management requested by surgeon per surgical: Progress Note Anesthesiologist: Jaida Garcia MD Performed by: anesthesiologist Preanesthetic timeout completed prior to procedure: patient identified,IV checked, site marked, risks and benefits discussed, surgical consent, monitors and equipment checked, pre-op evaluation, timeout performed Informed consent obtained patient wishes to proceed: yes Patient Position: supine Sterile Prep/Drape: Yes Monitoring: continuous pulse ox, ECG and blood pressure Injection Technique: single-shot Needle Type: Stimuplex Needle Gauge: 22 G Needle Length: 3.5 Number of Attempts: 1 Technique: Negative aspiration, Ultrasound guided, Paresthesia technique and Intermittent aspiration during injection Sensory Effect: Adequate Medications Given: Regional: Bupiv 0.25% 20 mL EPI 1:200K ENGINEER AN-ANESTHESIOLOGY ANESTHESIOLOGIST [facility] Notes Date/Time Note Provider Source 2025-01-02 16:28:56 Suture sign was sent to providers today. Sabiha Ghosh MA [facility] 2025-01-02 14:52:32 [facility] is calling to ask if nicolle rondon can sign home health orders uploaded on [employer] on December 26 Please advise Ellis Uribe [facility] 2024-12-22 09:26:50 Spoke with Pts daughter, Althea and she verified hospice went in on 12/21 to admit pt. She was informed gabapentin was refilled to pharmacy as well. Alberta James MA [facility] 2024-12-22 08:08:41 Gabapentin reordered as requested. Please call Hospice because we dont typically have to place order for hospice [facility] 2024-12-21 16:37:26 Patient message sent as well. Please advise if you would like additional office visit. Alberta James [facility] 2024-12-21 16:05:24 Daughter of patient is requesting a STAT order for Hospice for the patient and clinical notes to be faxed to Michelle at [phone]. Please call daughter if clinic has any questions Duke Batres [facility] 2024-12-20 14:52:37 Denied: Last office visit: 11/14/24 Next office visit: 12/26/24 Requested Prescriptions Pending Prescriptions Disp Refills gabapentin 100 mg capsule 180 capsule 0 Sig: Take 1 capsule by mouth 2 (two) times daily as needed for Pain (scale 4-6). Last refill date: 11/09/24 qty 180 Notes: The encounter diagnosis was Pain of right hip. Juliann Rascon LVN [facility] 2024-12-19 14:24:35 Please review and advise. JORDAN 11/14/24 NOV 12/26/24 Juliann Rascon LVN [facility] 2024-12-13 14:54:04 Please schedule pt for face to face office visit for home health [facility] 2024-12-13 12:41:14 Yes face to face is required to place orders [facility] 2024-12-12 16:30:21 Please review and advise. JORDAN 11/14/24 NOV 12/26/24 Juliann Rascon LVN [facility] 2024-12-12 16:01:46 DANN [facility] with [facility] with be faxing over a HIPAA information to release if JOSHUA Rondon is pt pcp and would like to know if JOSHUA Rondon will follow pt for home health. Slime Holt [facility] 2024-12-12 15:51:23 Patient discharge home. Discharge instructions and education given to patient and family at bedside,by ADT nurse, all questions answered. PIV removed prior to d/c. Demetra Bland RN [facility] 2024-12-12 15:51:00 Problem: Falls, Risk of Goal: Absence of falls Outcome: Adequate for discharge Problem: Respiratory Function - Impaired Goal: Able to cough effectively Outcome: Adequate for discharge Goal: Adequate oxygenation Outcome: Adequate for discharge Goal: Adequate work of breathing Outcome: Adequate for discharge Goal: Patent airway Outcome: Adequate for discharge [facility] 2024-12-12 10:29:11 Problem: Falls, Risk of Goal: Absence of falls Outcome: Progressing as expected Problem: Respiratory Function - Impaired Goal: Able to cough effectively Outcome: Progressing as expected Goal: Adequate oxygenation Outcome: Progressing as expected Goal: Adequate work of breathing Outcome: Progressing as expected Goal: Patent airway Outcome: Progressing as expected Loki Brown RN [facility] 2024-12-12 01:13:06 Problem: Falls, Risk of Goal: Absence of falls Outcome: Progressing as expected Problem: Respiratory Function - Impaired Goal: Able to cough effectively Outcome: Progressing as expected Goal: Adequate oxygenation Outcome: Progressing as expected Goal: Adequate work of breathing Outcome: Progressing as expected Goal: Patent airway Outcome: Progressing as expected Ted Yancey RN [facility] 2024-12-11 08:00:56 Problem: Falls, Risk of Goal: Absence of falls Outcome: Progressing as expected Problem: Respiratory Function - Impaired Goal: Able to cough effectively Outcome: Progressing as expected Goal: Adequate oxygenation Outcome: Progressing as expected Goal: Adequate work of breathing Outcome: Progressing as expected Goal: Patent airway Outcome: Progressing as expected [facility] 2024-12-11 03:31:19 Problem: Falls, Risk of Goal: Absence of falls Reactivated Problem: Respiratory Function - Impaired Goal: Able to cough effectively Reactivated Goal: Adequate oxygenation Reactivated Goal: Adequate work of breathing Reactivated Goal: Patent airway Reactivated Magdalena Abdullahi RN [facility] 2024-12-10 15:21:26 O2 Saturation at REST on Room Air = 96% O2 Saturation at REST on 2 LPM of Oxygen = 96% If room air Saturations on Room Air are 88% or below STOP as no further testing is needed EXERTION TEST O2 Saturation at Rest on Room Air = 96% O2 Saturation being Exerted on Room Air = 84% O2 Saturation being Exerted on 2 LPM of Oxygen = 92% T Liza Hess RN [facility] 2024-12-10 10:18:03 Patient and family verbalize understanding of discharge and follow up instructions. [facility] 2024-12-09 23:22:10 Problem: Falls, Risk of Goal: Absence of falls Outcome: Progressing as expected Problem: Bleeding, Risk of Goal: Absence of impaired coagulation signs and symptoms Outcome: Progressing as expected Goal: Absence of active bleeding Outcome: Progressing as expected Problem: Pain Goal: Control of pain at or below patient's documented comfort goal Outcome: Progressing as expected Goal: Reduction in pain sensation Outcome: Progressing as expected Problem: Skin integrity Impaired (Risk or Actual) Goal: Wound healing Outcome: Progressing as expected Goal: Prevention of new skin breakdown Outcome: Progressing as expected Problem: Respiratory Function - Impaired Goal: Able to cough effectively Outcome: Progressing as expected Goal: Adequate oxygenation Outcome: Progressing as expected Goal: Adequate work of breathing Outcome: Progressing as expected Goal: Patent airway Outcome: Progressing as expected Problem: Respiratory Function - Impaired Goal: Able to cough effectively Outcome: Progressing as expected Goal: Adequate oxygenation Outcome: Progressing as expected Goal: Adequate work of breathing Outcome: Progressing as expected Goal: Patent airway Outcome: Progressing as expected [facility] 2024-12-09 08:00:00 Problem: Falls, Risk of Goal: Absence of falls Outcome: Progressing as expected Problem: Bleeding, Risk of Goal: Absence of impaired coagulation signs and symptoms Outcome: Progressing as expected Goal: Absence of active bleeding Outcome: Progressing as expected Problem: Pain Goal: Control of pain at or below patient's documented comfort goal Outcome: Progressing as expected Goal: Reduction in pain sensation Outcome: Progressing as expected Problem: Skin integrity Impaired (Risk or Actual) Goal: Wound healing Outcome: Progressing as expected Goal: Prevention of new skin breakdown Outcome: Progressing as expected Problem: Respiratory Function - Impaired Goal: Able to cough effectively Outcome: Progressing as expected Goal: Adequate oxygenation Outcome: Progressing as expected Goal: Adequate work of breathing Outcome: Progressing as expected Goal: Patent airway Outcome: Progressing as expected [facility] Effie Meyers RN [facility] [employer] 2024-12-09 01:01:44 Problem: Falls, Risk of Goal: Absence of falls Outcome: Progressing as expected Problem: Bleeding, Risk of Goal: Absence of impaired coagulation signs and symptoms Outcome: Progressing as expected Goal: Absence of active bleeding Outcome: Progressing as expected Problem: Pain Goal: Control of pain at or below patient's documented comfort goal Outcome: Progressing as expected Goal: Reduction in pain sensation Outcome: Progressing as expected Problem: Skin integrity Impaired (Risk or Actual) Goal: Wound healing Outcome: Progressing as expected Goal: Prevention of new skin breakdown Outcome: Progressing as expected Problem: Respiratory Function - Impaired Goal: Able to cough effectively Outcome: Progressing as expected Goal: Adequate oxygenation Outcome: Progressing as expected Goal: Adequate work of breathing Outcome: Progressing as expected Goal: Patent airway Outcome: Progressing as expected T [facility] [employer] 2024-12-08 08:00:00 Problem: Falls, Risk of Goal: Absence of falls Outcome: Progressing as expected Problem: Bleeding, Risk of Goal: Absence of impaired coagulation signs and symptoms Outcome: Progressing as expected Goal: Absence of active bleeding Outcome: Progressing as expected Problem: Pain Goal: Control of pain at or below patient's documented comfort goal Outcome: Progressing as expected Goal: Reduction in pain sensation Outcome: Progressing as expected Problem: Skin integrity Impaired (Risk or Actual) Goal: Wound healing Outcome: Progressing as expected Goal: Prevention of new skin breakdown Outcome: Progressing as expected Problem: Respiratory Function - Impaired Goal: Able to cough effectively Outcome: Progressing as expected Goal: Adequate oxygenation Outcome: Progressing as expected Goal: Adequate work of breathing Outcome: Progressing as expected Goal: Patent airway Outcome: Progressing as expected [facility] 2024-12-08 04:22:26 Problem: Falls, Risk of Goal: Absence of falls Outcome: Progressing as expected Problem: Bleeding, Risk of Goal: Absence of impaired coagulation signs and symptoms Outcome: Progressing as expected Goal: Absence of active bleeding Outcome: Progressing as expected Problem: Pain Goal: Control of pain at or below patient's documented comfort goal Outcome: Progressing as expected Goal: Reduction in pain sensation Outcome: Progressing as expected Problem: Skin integrity Impaired (Risk or Actual) Goal: Wound healing Outcome: Progressing as expected Goal: Prevention of new skin breakdown Outcome: Progressing as expected Problem: Respiratory Function - Impaired Goal: Able to cough effectively Outcome: Progressing as expected Goal: Adequate oxygenation Outcome: Progressing as expected Goal: Adequate work of breathing Outcome: Progressing as expected Goal: Patent airway Outcome: Progressing as expected [facility] 2024-12-07 19:45:20 Patient educated on using call light for any assistance. Bed in lowest and locked position with bed alarm active and call light in reach. Ean Fuller RN [facility] 2024-12-07 16:44:20 O2 Saturation at REST on Room Air = 87% O2 Saturation at REST on 2 LPM of Oxygen = 96% If room air Saturations on Room Air are 88% or below STOP as no further testing is needed Sourav Shen RN [facility] 2024-12-07 14:42:48 Problem: Falls, Risk of Goal: Absence of falls Outcome: Progressing as expected Problem: Bleeding, Risk of Goal: Absence of impaired coagulation signs and symptoms Outcome: Progressing as expected Goal: Absence of active bleeding Outcome: Progressing as expected Problem: Pain Goal: Control of pain at or below patient's documented comfort goal Outcome: Progressing as expected Goal: Reduction in pain sensation Outcome: Progressing as expected Problem: Respiratory Function - Impaired Goal: Adequate work of breathing Outcome: Progressing as expected Goal: Patent airway Outcome: Progressing as expected Silvina Allred RN [facility] 2024-12-07 08:48:21 BRIEF OPERATIVE NOTE Date of Surgery: 12/07/2024 Surgeons and Role: * Marbella Vale MD - Primary * Pipo Ariza MBBS - Fellow Pre-Op Diagnosis: Anemia, unspecified type [D64.9] Post-Op Diagnosis Codes: * Anemia, unspecified type [D64.9] Procedures: Procedure(s) (LRB): ESOPHAGOGASTRODUODENOSCOPY (N/A) CPT: CODINGHELP, Any Complications Encounters: none Estimated Blood Loss: minimal Specimens Removed: ID Type Source Tests Collected by Time Destination 1 : 1 Gastric bx to eval for H. Pylori Tissue STOMACH SURGICAL PATHOLOGY EXAM Pipo Ariza MBBS 12/07/2024 0857 * No implants in log * Patient's Condition: stable Findings: - The cricopharyngeus, upper third of the esophagus, middle third of the esophagus and lower third of the esophagus were normal. - The Z-line was regular and was found 38 cm from the incisors. - One non-obstructing non-bleeding cratered deep gastric ulcer with a clean ulcer base (Phillip Class III) was found on the posterior wall of the gastric antrum. The lesion was 15 mm in largest dimension. - Scattered mild inflammation characterized by erythema and linear erosions was found in the gastric fundus, in the gastric body and in the gastric antrum. Biopsies were taken with a cold forceps for Helicobacter pylori testing. - There was evidence of likely prior surgical siva patch repair in the duodenal bulb. This was characterized by healthy appearing mucosa, an intact appearance and visible sutures. - The first portion of the duodenum and second portion of the duodenum were normal. Recommendations: - Return patient to hospital adame for ongoing care. - Clear liquid diet and advance as tolerated. - Continue present medications. Including IV PPI BID. - Check gastrin in the morning. - Avoid NSAIDs. (The patient had been taking Aleve daily.) - Await pathology results. - Will need repeat upper endoscopy to check for healing of gastric ulcer and to take biopsies around the base of the ulcer after further high dose PPI therapy. Can consider doing this inpatient next week vs outpatient. Please see endoscopy report for additional detail. T -GASTROENTEROLOGY STAFF [facility] 2024-12-07 04:10:18 Problem: Falls, Risk of Goal: Absence of falls Outcome: Progressing as expected Problem: Bleeding, Risk of Goal: Absence of impaired coagulation signs and symptoms Outcome: Progressing as expected Goal: Absence of active bleeding Outcome: Progressing as expected Problem: Pain Goal: Control of pain at or below patient's documented comfort goal Outcome: Progressing as expected Goal: Reduction in pain sensation Outcome: Progressing as expected Problem: Skin integrity Impaired (Risk or Actual) Goal: Wound healing Outcome: Progressing as expected Goal: Prevention of new skin breakdown Outcome: Progressing as expected Problem: Respiratory Function - Impaired Goal: Able to cough effectively Outcome: Progressing as expected Goal: Adequate oxygenation Outcome: Progressing as expected Goal: Adequate work of breathing Outcome: Progressing as expected Goal: Patent airway Outcome: Progressing as expected [facility] 2024-12-06 19:42:43 Patient educated on using call light for any assistance. Bed in lowest and locked position with bed alarm active and call light in reach. [facility] 2024-12-06 09:45:39 Problem: Falls, Risk of Goal: Absence of falls Outcome: Progressing as expected Problem: Bleeding, Risk of Goal: Absence of impaired coagulation signs and symptoms Outcome: Progressing as expected Goal: Absence of active bleeding Outcome: Progressing as expected Problem: Pain Goal: Control of pain at or below patient's documented comfort goal Outcome: Progressing as expected Goal: Reduction in pain sensation Outcome: Progressing as expected Problem: Skin integrity Impaired (Risk or Actual) Goal: Wound healing Outcome: Progressing as expected Goal: Prevention of new skin breakdown Outcome: Progressing as expected Problem: Respiratory Function - Impaired Goal: Able to cough effectively Outcome: Progressing as expected Goal: Adequate oxygenation Outcome: Progressing as expected Goal: Adequate work of breathing Outcome: Progressing as expected Goal: Patent airway Outcome: Progressing as expected [facility] 2024-12-06 08:01:25 High risk for falls, patient using call light for assistance. Bed alarm on. Camryn Ghotra RN [facility] 2024-12-06 05:24:01 Problem: Skin integrity Impaired (Risk or Actual) Goal: Wound healing Outcome: Progressing as expected Goal: Prevention of new skin breakdown Outcome: Progressing as expected Problem: Respiratory Function - Impaired Goal: Able to cough effectively Outcome: Progressing as expected Goal: Adequate oxygenation Outcome: Progressing as expected Goal: Adequate work of breathing Outcome: Progressing as expected Goal: Patent airway Outcome: Progressing as expected Donna Huerta RN [facility] 2024-12-05 11:18:01 Pharmacist IV to PO Medication Conversion Note Per chart review, patient Chiquis Gaming meets criteria for IV to PO medication conversion. Please note that the following medication(s) have been converted from IV to PO per P&T approved pharmacist IV to PO medication conversion policy: - Levofloxacin - Pantoprazole Please call with questions or concerns. Noor Celesten, PharmD, BCIDP Pager: [phone] 12/05/2024 11:15 Anca Martinez [facility] 2024-12-05 08:06:26 Problem: Falls, Risk of Goal: Absence of falls Outcome: Progressing as expected Problem: Bleeding, Risk of Goal: Absence of impaired coagulation signs and symptoms Outcome: Progressing as expected Goal: Absence of active bleeding Outcome: Progressing as expected Problem: Pain Goal: Control of pain at or below patient's documented comfort goal Outcome: Progressing as expected Goal: Reduction in pain sensation Outcome: Progressing as expected Problem: Skin integrity Impaired (Risk or Actual) Goal: Wound healing Outcome: Progressing as expected Goal: Prevention of new skin breakdown Outcome: Progressing as expected Claude Sylvester RN [facility] 2024-12-05 06:26:33 Problem: Falls, Risk of Goal: Absence of falls Outcome: Progressing as expected Problem: Bleeding, Risk of Goal: Absence of impaired coagulation signs and symptoms Outcome: Progressing as expected Goal: Absence of active bleeding Outcome: Progressing as expected Problem: Pain Goal: Control of pain at or below patient's documented comfort goal Outcome: Progressing as expected Goal: Reduction in pain sensation Outcome: Progressing as expected Problem: Skin integrity Impaired (Risk or Actual) Goal: Wound healing Outcome: Progressing as expected Goal: Prevention of new skin breakdown Outcome: Progressing as expected Andie Munoz RN [facility] 2024-12-04 16:42:31 Problem: Falls, Risk of Goal: Absence of falls Outcome: Progressing as expected Problem: Bleeding, Risk of Goal: Absence of impaired coagulation signs and symptoms Outcome: Progressing as expected Goal: Absence of active bleeding Outcome: Progressing as expected Problem: Pain Goal: Control of pain at or below patient's documented comfort goal Outcome: Progressing as expected Goal: Reduction in pain sensation Outcome: Progressing as expected Problem: Skin integrity Impaired (Risk or Actual) Goal: Wound healing Outcome: Progressing as expected Goal: Prevention of new skin breakdown Outcome: Progressing as expected T [facility] 2024-12-04 07:59:47 Pt is a very high fall risk bed alarm on and fall prevention education provided to pt, pt verbalized understanding. Call light within reach. Shayna Rodriguez RN [facility] 2024-12-04 01:47:53 Problem: Falls, Risk of Goal: Absence of falls Outcome: Progressing as expected Problem: Bleeding, Risk of Goal: Absence of impaired coagulation signs and symptoms Outcome: Progressing as expected Goal: Absence of active bleeding Outcome: Progressing as expected Problem: Pain Goal: Control of pain at or below patient's documented comfort goal Outcome: Progressing as expected Goal: Reduction in pain sensation Outcome: Progressing as expected [facility] 2024-12-03 23:00:48 Patient transferred to [place] for diagnosis of Dyspnea, anemia, excerebration of asthma . Patient transfer to admission, discussed plan of care with patient and family. Patient is awake, A&Ox4, RR even and unlabored on 2L NC. Color appropriate for race. PIV intact x1. No adverse reaction to medications administered while in ED. Belongings with patient to unit. Flor Lopez RN [facility] 2024-12-03 22:58:48 Nurse Report Report given to Vandana BERTRAND. Chief complaint, assessment findings, infusion verify and orders reviewed. Flor W Lopez, RN [facility] 2024-12-03 22:45:16 [facility] ambulance arrives to transport pt to [place]. [facility] 2024-12-03 16:57:29 CC: patient presents to the ER with complaints of shortness of breath that began last night around 2300. Patient states that she has used her inhaler without relief. Awake, alert, oriented, resp reg unlabored, skin warm and dry, color appropriate for race, moves all ext without difficulty, using wheelchair. Appears in no distress. 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 Patient states that she has used her inhaler without relief. Awake, alert, oriented, resp reg unlabored, skin warm and dry, color appropriate for race, moves all ext without difficulty, using wheelchair. Appears in no distress. HPI History provided by: Patient WHEEZING Severity: Moderate Onset quality: Gradual Timing: Constant Chronicity: Recurrent Relieved by: Nothing Worsened by: Nothing Ineffective treatments: None tried Associated symptoms: no chest pain, no chest tightness, no cough, no fatigue, no fever, no headaches, no shortness of breath and no sore throat Past Medical History / Immunizations Past Medical History: Diagnosis Date Arthritis Asthma Bone cancer Breast cancer 01/2014 Bilateral, Left invasive ductal, Right tubular, diagnosed in [place]. [facility] Genetic Screening panel negative 02/2017. Hypertension Hypothyroid Postmenopausal vaginal bleeding 2014 Tetanus received in last 5 years: Unknown Past Surgical History Past Surgical History: Procedure Laterality Date ABDOMINAL HYSTERECTOMY N/A 11/04/2015 With BSO too. Surgeon: Clarita Casillas; [facility] BREAST BIOPSY WITH NEEDLE LOCALIZATION Right 11/04/2015 Surgeon: Daniela Mcqueen; [facility] BREAST LUMPECTOMY BX OF BREAST, NEEDLE CORE, IMAGE GUIDE Bilateral 2013 [place], bil breast cancer COLONOSCOPY N/A 11/15/2017 Surgeon: Alejandro Barber MD; Location: [facility] Location ENDOMETRIAL BIOPSY 09/24/2015 HUMERUS INTRAMEDULLARY NAILING Left 11/21/2024 Surgeon: Addie Aguilera MD; Location: [facility] OR LOCATION JOINT SURGERY Right LYMPH NODE DISSECTION Left 11/04/2015 Surgeon: Daniela Mcqueen; Location: [facility] MAMMOGRAM, BILATERAL-DIAGNOSTIC 02/16/2014 OBSTE CARE,VAG DELIV+ 1971 REDUCTION MAMMOPLASTY Bilateral 11/04/2015 Surgeon: Jake Tomlin MD; Location: [facility] SEGMENTAL MASTECTOMY Bilateral 11/04/2015 Left central lumpectomy with nipple/areola excision, Right needle localized lumpectomy. Surgeon: Daniela Mcqueen; Location: [facility] SENTINEL LYMPH NODE MAPPING Right 11/04/2015 Surgeon: Daniela Mcqueen; Location: [facility] TONSILLECTOMY 1950's US CORE BIOPSY Left axillary node core biopsy positive for breast cancer Allergies Allergies Allergen Reactions Tree Nuts Itching Especially walnuts Aspirin Other - See comments Cefdinir Hives Codeine Unknown - See comments Melon Other - See comments "Itchy throat" Morphine Nausea and/or Vomiting Shellfish [Iodine And Iodide Containing Products] Unknown - See comments Upsets her stomach Social History Tobacco Use Never smoked or used smokeless tobacco. Passive Exposure: Never Tobacco Cessation: Counseling given: No Vaping Use Never used Alcohol Use No. Comments: drank for 4-5 years, quit 1987 Drug Use No. Sexual Activity Not currently sexually active; Control/Protection: Post-menopausal. Review of Systems Review of Systems Constitutional: Negative. Negative for chills, fatigue, fever and unexpected weight change. HENT: Negative. Negative for sore throat. Eyes: Negative. Negative for discharge and itching. Respiratory: Positive for wheezing. Negative for cough, chest tightness and shortness of breath. Cardiovascular: Negative. Negative for chest pain and palpitations. Gastrointestinal: Negative. Negative for abdominal distention, abdominal pain, nausea and vomiting. Genitourinary: Negative. Negative for dysuria, urgency, frequency and flank pain. Musculoskeletal: Negative. Skin: Negative. Negative for color change, pallor and wound. Neurological: Negative. Negative for dizziness, syncope, light-headedness and headaches. Psychiatric/Behavioral: Negative. Negative for agitation and behavioral problems. All other systems reviewed and are negative. Endocrine: Endocrine negative Physical Exam ED Triage Vitals [12/03/24 1658] Weight 69.4 kg (153 lb) Actual or estimated Estimated by patient/family report Height 1.6 m (5' 3") BP 138/63 Pulse 81 Resp 16 Temp 37.2 ?C (99 ?F) Temp source Oral SpO2 91 % Measured on Room air Physical Exam Vitals reviewed. Constitutional: Appearance: She is well-developed. HENT: Head: Normocephalic and atraumatic. Eyes: Conjunctiva/sclera: Conjunctivae normal. Cardiovascular: Rate and Rhythm: Normal rate and regular rhythm. Heart sounds: Normal heart sounds. Pulmonary: Effort: Pulmonary effort is normal. Tachypnea present. No respiratory distress. Breath sounds: No stridor. Examination of the right-upper field reveals wheezing. Examination of the left-upper field reveals wheezing. Examination of the right-middle field reveals wheezing. Examination of the left-middle field reveals wheezing. Examination of the right-lower field reveals wheezing. Examination of the left-lower field reveals wheezing. Wheezing present. No rales. Abdominal: General: Bowel sounds are normal. There is no distension. Palpations: Abdomen is soft. Tenderness: There is no abdominal tenderness. There is no guarding or rebound. Musculoskeletal: General: Normal range of motion. Cervical back: Neck supple. Skin: General: Skin is warm and dry. Neurological: Mental Status: She is alert and oriented to person, place, and time. Cranial Nerves: No cranial nerve deficit. Sensory: No sensory deficit. Psychiatric: Behavior: Behavior normal. Thought Content: Thought content normal. Judgment: Judgment normal. Labs Lab Results CBC WITH DIFF - Abnormal Result Value Ref Range WBC 5.28 4.30 - 11.10 10*3/?L RBC 2.34 (*) 3.93 - 5.25 10*6/?L HGB 7.5 (*) 11.6 - 15.0 g/dL HCT 24.4 (*) 35.7 - 45.2 % MCV 104.3 (*) 80.6 - 95.5 fL MCH 32.1 25.9 - 32.8 pg MCHC 30.7 (*) 31.6 - 35.1 g/dL RDW-SD 64.9 (*) 39.0 - 49.9 fL RDW-CV 17.5 (*) 12.0 - 15.5 % PLT 66 (*) 166 - 358 10*3/?L MPV 12.1 9.5 - 12.9 fL IPF % 4.0 1.3 - 7.7 % NRBC/100 WBC 4.7 0.0 - 10.0 /100 WBCs NRBC x10 3 0.25 10*3/?L GRAN MAT (NEUT) % 69.2 % IMM GRAN % 9.30 % LYMPH % 12.3 % MONO % 7.6 % EOS % 0.8 % BASO % 0.8 % GRAN MAT x10 3 (ANC) 3.66 1.88 - 7.09 10*3/uL IMM GRAN x10 3 0.49 (*) 0.00 - 0.06 10*3/uL LYMPH x10 3 0.65 (*) 1.32 - 3.29 10*3/uL MONO x10 3 0.40 0.33 - 0.92 10*3/uL EOS x10 3 0.04 0.03 - 0.39 10*3/uL BASO x10 3 0.04 0.01 - 0.07 10*3/uL TOXIC CHANGES Present (*) COMP. METABOLIC PANEL (43353) - Abnormal NA 134 (*) 135 - 145 mmol/L K 4.0 3.5 - 5.0 mmol/L CL 97 (*) 98 - 108 mmol/L CO2 TOTAL 29 23 - 31 mmol/L AGAP 8 2 - 16 BUN 26 (*) 7 - 23 mg/dL GLUCOSE 95 70 - 110 mg/dL CREATININE 0.93 0.50 - 1.04 mg/dL TOTAL BILI 1.6 (*) 0.1 - 1.1 mg/dL CALCIUM 10.6 8.6 - 10.6 mg/dL T PROTEIN 6.9 6.3 - 8.2 g/dL ALBUMIN 4.0 3.5 - 5.0 g/dL ALK PHOS 270 (*) 34 - 122 U/L ALTv 35 5 - 35 U/L AST(SGOT) 84 (*) 13 - 40 U/L eGFR 64.2 mL/min/1.73m2 N-TERMINAL PRO-BNP - Abnormal NT-proBNP 712 <=125 pg/mL AC PANEL 20 + LACTIC ACID - Abnormal PH 7.42 7.35 - 7.45 PCO2 41 35 - 45 mmHg PO2 98 80 - 100 mmHg HCO3 26 22 - 26 mEq/L BE 1.5 -3.0 - 3.0 mEq/L THB 8.3 (*) 12.0 - 16.0 g/dL %O2HB 95.2 94.0 - 99.0 % %COHB ART 0.8 0.0 - 1.5 % %METHB ART 0.3 (*) 0.4 - 1.5 % VOL%O2 ART 11.3 (*) 15.0 - 23.0 % NA 134 (*) 135 - 145 mmol/L K+ 4.0 3.5 - 5.0 mmol/L AC CA IONZ 4.90 4.50 - 5.30 mg/dL GLUCOSE 91 70 - 110 mg/dL LACTIC ACID 1.80 0.50 - 2.20 mmol/L TROPONIN I - Normal TROPONIN I 0.008 <=0.034 ng/mL Imaging XR Chest 1 vw Final Result EXAM: XR CHEST 1 VW 12/03/2024 5:18 PM HISTORY: 74 years old Female with dyspnea TECHNIQUE: Portable AP view of the chest. COMPARISON: Chest x-ray dated 11/09/2024 IMPRESSION FINDINGS/IMPRESSION: Lungs and pleura: Moderate to large right pleural effusion is again seen with new small fissural extension. Left lower lobe atelectasis. No focal consolidations. Cardiomediastinal: The cardiomediastinal silhouette is normal accounting for technique. Musculoskeletal: Heterogeneous osseous structures of bilateral shoulder bones, may be related to osteopenia. Internal fixation of the left proximal humerus. Postsurgical changes are seen projected over the left breast and axilla. Orders and Treatments Orders Placed This Encounter Procedures Critical Care XR Chest 1 vw IR Thoracentesis with imaging CBC WITH DIFF COMP. METABOLIC PANEL (29486) TROPONIN I N-TERMINAL PRO-BNP AC Panel 20 + Lactic Acid Procalcitonin Sputum Culture Legionella and Streptococcus Pneumoniae Urinary Antigens CBC WITH DIFF BASIC METABOLIC PANEL (NA, K, CL, CO2, GLUCOSE, BUN, CREATININE, CA) LDH, Total Body Fluid T.Protein Body Fluid Glucose Body Fluid Body Fluid Culture(Aerobic/Anaerobic) pH, Body Fluid Cyto Pleural Fluid PROTHROMBIN TIME / INR Consult Adult Physical Therapy Consult Adult Occupational Therapy Consult Pulmonary Medicine O2 Per Protocol Orders Placed This Encounter Medications ipratropium-albuteroL (DUONEB) 0.5 mg-3 mg(2.5 mg base)/3 mL nebulizer solution 3 mL ipratropium-albuteroL (DUONEB) 0.5 mg-3 mg(2.5 mg base)/3 mL nebulizer solution 3 mL methylprednisolone sod succ (SOLU-MEDROL) injection 125 mg gabapentin (NEURONTIN) capsule 200 mg traMADoL (ULTRAM) tablet 50 mg pantoprazole (PROTONIX) injection 40 mg DISCONTD: pantoprazole (PROTONIX) 80 mg in NaCl 0.9% (NS) 500 mL infusion DISCONTD: pantoprazole (PROTONIX) injection 40 mg DISCONTD: NaCl 0.9% (NS) IV infusion 1,000 mL heparin (porcine) injection 5,000 Units acetaminophen (TYLENOL) tablet 650 mg sennosides-docusate sodium (SENOKOT-S) 8.6-50 mg per tablet 1 tablet ondansetron (ZOFRAN (PF)) injection 4 mg ipratropium-albuteroL (DUONEB) 0.5 mg-3 mg(2.5 mg base)/3 mL nebulizer solution 3 mL levoFLOXacin in D5W (LEVAQUIN) 750 mg/150 mL Piggyback 750 mg albuterol (VENTOLIN) inhaler 2 Puff DISCONTD: albuterol (VENTOLIN) inhaler 2 Puff cholecalciferol (vitamin D3) tablet 1,000 Units ferrous sulfate tablet 325 mg DISCONTD: furosemide (LASIX) tablet 20 mg gabapentin (NEURONTIN) capsule 100 mg levothyroxine (SYNTHROID) tablet 75 mcg swyeyhmt-ieyr-JM-calcium-min s (THERA-M) 9 mg iron-400 mcg tablet LORazepam (ATIVAN) tablet 0.5 mg melatonin (MELATIN) tablet 6 mg traMADoL (ULTRAM) tablet 50 mg hydralAZINE (APRESOLINE) injection 10 mg labetaloL (NORMODYNE) 5 mg/mL injection 10 mg furosemide (LASIX) injection 40 mg methylPREDNISolone sod succ (SOLU-MEDROL (PF)) injection 80 mg budesonide (PULMICORT RESPULE) nebulizer solution 0.5 mg Procedures EKG Time 194 Rate 86 Normal sinus LVH [place] normal Sinus arrhythmia Abnormal EKG MDM Patient was evaluated for an emergency medical condition related to Shortness of Breath Diagnoses considered but not limited to: Asthma exacerbation PE Pneumonia Labs:were ordered, and resulted, any relevant abnormalities were considered. ALL LABS REVIEWED Imaging:This is a teaching institution and preliminary studies are read by physicians in training. A final read by a radiologist will be confirmatory of preliminary studies or may include addenda. A reasonable attempt will be made to contact the patient or family to communicate findings if necessary. ED Course as of 12/04/24 1119 Sun Dec 03, [id number] Patient accepted by Dr. Ascencio [DN] 2154 Dr. Vale states patient will be seen in consultation [DN] 2119 Transfer initiated PPC [DN] ED Course User Index [DN] Pricila Davis MD Diagnosis/Impression as of 12/04/24 1119 Dyspnea, unspecified type Anemia, unspecified type Exacerbation of asthma, unspecified asthma severity, unspecified whether persistent Medical Decision Making Amount and/or Complexity of Data Reviewed Labs: ordered. Decision-making details documented in ED Course. Radiology: ordered and independent interpretation performed. Decision-making details documented in ED Course. ECG/medicine tests: ordered and independent interpretation performed. Decision-making details documented in ED Course. Risk Prescription drug management. Pulse Oximetry: is not hypoxic. Interpreted. Reassessment:gradually improving Communication with product support consultant: RAJIV Gold Limitations to patient care and compliance: none. Plan & Summary: The patient is a 74-year-old female who presents for shortness of breath. The patient has a history of asthma. On exam she was wheezing and was tachypneic. She was given steroids and breathing treatments. Of note she has a 3 g hemoglobin drop in the past 3 months. Today her hemoglobin is 7.5. The hematological and chemistry studies are within acceptable range. Of note, she recently had a emergent surgery for a ruptured peptic ulcer. My concern is that her shortness of breath could be compounded by this anemia. The patient was placed on Protonix. There is no GI coverage at [facility] the patient was transferred to [place] for further inpatient management and GI consult. Chiquis Gaming is a 74 year old female presenting for complaint(s) listed within the note. Transferred for higher level of care. History, physical exam findings, results of visit, diagnosis, medication regimens and plan of future care have been considered. Additional MDM may be found in the ED course. Vital signs were rechecked before final disposition and determined to be expected for patient's clinical condition.. Disposition & Follow Up ED Disposition None Current Discharge Medication List STOP taking these medications naproxen sodium (ALEVE) 220 mg tablet Comments: Reason for Stopping: traMADoL 50 mg tablet Comments: Reason for Stopping: levothyroxine 75 mcg tablet Comments: Reason for Stopping: ondansetron 4 mg disintegrating tablet Comments: Reason for Stopping: gabapentin 100 mg capsule Comments: Reason for Stopping: furosemide (LASIX) 20 mg tablet Comments: Reason for Stopping: albuterol (PROAIR HFA) 90 mcg/actuation inhaler Comments: Reason for Stopping: LORazepam (ATIVAN) 0.5 mg tablet Comments: Reason for Stopping: Cranberry 500 mg Cap Comments: Reason for Stopping: ferrous sulfate (IRON) 325 mg (65 mg iron) tablet Comments: Reason for Stopping: melatonin 3 mg Cap Comments: Reason for Stopping: inhalat.spacing dev,large mask (PURE COMFORT SPACER-ADULT MASK) Spcr Comments: Reason for Stopping: ondansetron 4 mg tablet Comments: Reason for Stopping: albuterol 90 mcg/actuation inhaler Comments: Reason for Stopping: multivit with iron,minerals (MULTIVITAMIN AND MINERALS ORAL) Comments: Reason for Stopping: Cholecalciferol, Vitamin D3, (VITAMIN D3) 2,000 unit capsule Comments: Reason for Stopping: Future Appointments In 2 days Addie Aguilera MD [facility] Orthopedics, [facility], JUAN FULLER BLE In 2 weeks Stella Keita MD [facility] Cardiology, [facility], [facility] [employer] In 3 weeks Nicolle Rondon, JOSHUA [facility], [facility] JONNY Davis Jr., MD Clinical Obstetrics Nurse Practitioner [facility] Emergency Department [employer] is used frequently and may produce errors. Promptly contact for obvious discrepancies. Pricila Davis MD 12/04/24 1122 [facility] 2024-12-03 16:51:00 Associated Order(s): Critical Care Critical Care Performed by: Pricila Davis MD Authorized by: Pricila Davis MD Critical care provider statement: Critical care time (minutes): 45 Critical care time was exclusive of: Separately billable procedures and treating other patients and teaching time Critical care was necessary to treat or prevent imminent or life-threatening deterioration of the following conditions: Respiratory failure Critical care was time spent personally by me on the following activities: Development of treatment plan with patient or surrogate, evaluation of patient's response to treatment, examination of patient, obtaining history from patient or surrogate, ordering and performing treatments and interventions, ordering and review of laboratory studies, ordering and review of radiographic studies, pulse oximetry, re-evaluation of patient's condition and review of old charts Care discussed with: admitting provider Comments: Due to a high probability of clinically significant, life threatening deterioration, the patient required my highest level of preparedness to intervene emergently and I personally spent this critical care time directly and personally managing the patient. This critical care time included obtaining a history; examining the patient; pulse oximetry; ordering and review of studies; arranging urgent treatment with development of a management plan; evaluation of patient's response to treatment; frequent reassessment; and, discussions with other providers. This critical care time was performed to assess and manage the high probability of imminent, life-threatening deterioration that could result in multi-organ failure. It was exclusive of separately billable procedures and treating other patients. 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 Anesthesia Post Evaluation Patient location during evaluation: bedside Patient participation: complete - patient participated Level of consciousness: awake and alert Pain score: 0 Pain management: satisfactory to patient Multimodal analgesia pain management approach Airway patency: patent Cardiovascular status: acceptable and blood pressure returned to baseline Respiratory status: acceptable Hydration status: acceptable [facility] AN-ANESTHESIOLOGY ANESTHESIOLOGIST [facility] 2024-11-21 11:59:39 BRIEF OPERATIVE NOTE Date of Surgery: 11/21/2024 Surgeons and Role: * Addie Aguilera MD - Primary Pre-Op Diagnosis: 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 Item Serial No. Roller Leveler Operator Lot No. LRB No. Used Action Polarus 3 Locking Nail 220mm Nail [id number] [employer] [id number] Left 1 Implanted Patient's Condition: good Findings: above Any other important information: none Please see dictated operative report for additional detail. [facility] 2024-11-21 09:03:00 Name/ MRN / Age / Gender: Chiquis Gaming, [id number] 74 year old female BMI: Estimated body mass index is 27.1 kg/m? as calculated from the following: Height as of 11/17/24: 1.6 m (5' 3"). Weight as of 11/17/24: 69.4 kg (153 lb). Allergies: Aspirin, Cefdinir, Codeine, Morphine, and Shellfish [iodine and iodide containing products] Last Vitals: BP Readings from Last 1 Encounters: 11/17/24 (!) 149/74 Pulse Readings from Last 1 Encounters: 11/17/24 91 SpO2 Readings from Last 1 Encounters: 11/17/24 92% Date of Surgery: 11/21/2024 Surgeon: Addie Aguilera MD Procedure: HUMERUS INTRAMEDULLARY NAILING (Left: Arm) OR Location: [facility] OR LOCATION Anesthesia Preop Eval (physical exam) Anesthesia Preop: Chart Review and [id number] PONV Risk Factors: female and non-smoker PONV Risk Score: 6 Anesthesia History Anesthesia History Negative per Chart Review Previous Anesthetics/Airways Cardiovascular (+) Patient reports cardiac eval within past 5 years Manager Adult's name/number: Bossman (+) Hypertension (+) Echocardiogram results Pulmonary (+) Asthma (used this morning 1x/week) and inhaler/nebulizer use Neuro/Musculoskeletal (+) Osteoarthritis (+) Obesity GI/Hepatic Negative GI/Hepatic ROS (-) GERD Hematology Negative Hematology ROS Renal Negative Renal ROS Skin Skin ROS Negative per Chart Review Endo/Other (+) Hypothyroidism Other PATHOLOGIST PATHOLOGIST N/A Pediatric Pediatric N/A N/A Preoperative Medication Instructions Continue taking all prescribed medications except: JULIANNE inhibitors, ARBs, diuretics, all oral diabetes medications Anticoagulant Therapy: Defer to surgeons Insulin: Take 1/2 dose the night prior to surgery. Hold on DOS. Phentermine: Alert [facility] anesthesiologist SGLT2 Inhibitors: "gliflozins" to be held for 3 days prior to elective surgeries GLP1 Agonosit: stop 7 days prior to surgery MAC Cases: Continue taking JULIANNE inhibitors and ARBs ASA Classification ASA: 3 ASA Comments: Chiquis Gaming is a 74 year old female. Left humerus injury sustained 11/14/24. Patient was holding a dog leash and the dog lunged to the side when injury occurred. Reports limited ROM.Has pain with activity. Has tried immobilization and oral narcotics for pain with no relief. Labs: Chemistry 11/14/2024 CBC 11/14/2024 137 103 33 (H) 115 (H) 3.87 (L) 9.2 (L) 86 (L) 3.4 (L) 23 1.07 (H) 29.2 (L) eGFR: 54.3 Date: 11/14/2024 ANC: 2.59 Date: 11/14/2024 LFTs 11/14/2024 Coags AST: 111 (H) AP: 306 (H) Prot: 7.3 Ca: 11.0 (H) PT: - Date: - ALT: 48 (H) T Matheus: 1.5 (H) Alb: 4.5 PTT: - Date: - PO4: - Date: - INR: - Date: - Cardiac Endocrine & other pBNP: 202 Date: 05/12/2024 A1C: 4.4 Date: 02/22/2024 Trop I: - Date: - POCT A1C: - Date: - CK: - Date: - TSH: 6.77 (H) Date: 11/14/2024 CKMB: - Date: - FT4: 1.50 Date: 11/14/2024 LDL: - Date: - Lact: - Date: - Procal: - Date: - Respiratory -|-|-|-|- D-dimer: - ABG Date: - Date: - Miscellaneous Type and Screen: - Antibody: - Date: - POCT : Negative Date: 09/25/2015 Current Medications: Current Facility-Administered Medications for the 11/21/24 encounter (Hospital Encounter) Medication Dose Route Frequency Provider Last Rate Last Admin [START ON 11/21/2024] vancomycin placeholder: dosing by provider Intravenous RX Placeholder Addie Aguilera MD No outpatient medications have been marked as taking for the 11/21/24 encounter (Hospital Encounter). Previous Surgeries: Past Surgical History: Procedure Laterality Date ABDOMINAL HYSTERECTOMY N/A 11/04/2015 With BSO too. Surgeon: Clarita Casillas; [facility]: [facility] BREAST BIOPSY WITH NEEDLE LOCALIZATION Right 11/04/2015 Surgeon: Daniela Mcqueen; Location: [facility] BREAST LUMPECTOMY BX OF BREAST, NEEDLE CORE, IMAGE GUIDE Bilateral [place], bil breast cancer COLONOSCOPY N/A 11/15/2017 Surgeon: Alejandro Barber MD; Location: [facility] ([facility] OR Location ENDOMETRIAL BIOPSY 09/24/2015 JOINT SURGERY Right LYMPH NODE DISSECTION Left 11/04/2015 Surgeon: Daniela Mcqueen; Location: [facility] MAMMOGRAM, BILATERAL-DIAGNOSTIC 02/16/2014 OBSTE CARE,VAG DELIV+ 1971 REDUCTION MAMMOPLASTY Bilateral 11/04/2015 Surgeon: Jake Tomlin MD; Location: [facility] SEGMENTAL MASTECTOMY Bilateral 11/04/2015 Left central lumpectomy with nipple/areola excision, Right needle localized lumpectomy. Surgeon: Daniela Mcqueen; Location: [facility] SENTINEL LYMPH NODE MAPPING Right 11/04/2015 Surgeon: Daniela Mcqueen; Location: [facility] TONSILLECTOMY 1950's US CORE BIOPSY Left axillary node core biopsy positive for breast cancer Anesthesia Physical Exam General no apparent distress and alert and oriented x 3 Neuro/Psych Dental no notable dental hx Abdominal GI exam normal Airway Mallampati score:II TM distance:> 5 cm Neck ROM: full Mouth opening:normal Extremity Pulmonary pulmonary exam normal Other Cardiovascular cardiovascular exam normal Anesthesia Plan ASA Status: 3 Plan discussed during pre-op evaluation: General Anesthetic plan on DOS: General Plan to include: IV induction and ETT Anesthesia plan discussed with: patient or service representative Post-Operative Analgesia: routine analgesia & antiemetics and nerve block for post-op analgesia Recovery Plan: PACU Additional comments: I reviewed the preoperative history,labs, medications, and pertinent studies and performed a physical exam perioperative. The anesthetic plan is general . I discussed this anesthetic plan with all of its components at length with the patient including the risks, benefits, and alternatives.I answered all of her questions and consent, ID, and NPO status were verified. This patient agrees with the plan and desires to proceed with surgery. [facility] 2024-11-20 10:58:46 Images from the original note were not included. Your procedure is at [facility] on 11/21/24. The address is [address] [place] [address], [id number]. [facility] nursing staff will call you the workday prior to surgery/procedure between 12-3 pm with your arrival time. When you arrive, please come inside and sign in at the desk. Please note: You may not travel home alone and that includes in a taxi or by bus. We must speak to your Responsible Adult (who will be picking you up) the morning of your procedure, before the start of your procedure. This person must be an adult over the age of 18 years of age. Do not eat any solid food after midnight the night before surgery. May have 8-16 oz of water/clear liquids each hour after midnight, as desired, until two hours prior to arrival to promote hydration. You may take your medications with a sip of water as directed by physician. Anticoagulants will be per physician guidance. Other medication Note(s)/Instructions:Instruc danielle to hold furosemide morning of procedure. Advised to take levothyroxine morning of surgery. Pending screening, we may test for COVID. If a patient tests positive, their cases are cancelled and/or rescheduled. COVID SCREENING NOTE: Denies COVID symptoms, no testing required. Additional requests, questions, concerns:EKG completed but not in record, will notify MR. MORENO number and availability provided. Patient verbalized understanding of pre-op instructions and voiced no further questions at this time. [facility] 2024-11-17 11:00:00 Images from the original note were not included. Patient has been identified by and name and was provided with cup, antiseptic towelette, and clean catch instructions. 3 urine specimen(s) sent. Unpreserved 2 Urine Culture 1 Aptima tube Other urine [facility] 2024-11-17 10:30:00 Addended by: SAULO MILLER on: 11/17/2024 12:17 PM Modules accepted: Level of Service [facility] IM-CARDIOVASCULAR DISEASE STAFF [facility] 2024-11-15 11:55:35 Dosage adjustment sent for levothyroxine [facility] 2024-11-15 08:48:11 Please review and advise. JORDAN 11/14/24 [facility] Juliann Rascon LVN [facility] 2024-11-14 16:00:00 Images from the original note were not included. Venipuncture collection performed by clean technique on the right wrist. Total of 2 attempts were made. Slight pressure and a bandage/dressing were applied to the site(s). The patient experienced no complications. The following specimens were processed according to instructions and sent to [facility] laboratories per lab order on 11/14/2024 : LT BLUE SST 2RST 2LT GREEN RED LAV 1 PPT DK GREEN (LiHep) 1 DK GREEN (SodH) ZHANG DK BLUE (K2) DK BLUE (S) ACD Blood Culture NIPT/NTD [facility] 2024-11-09 16:18:39 Images from the original note were not included. Notes: 08/14/24 Last Refilled: [id number] - [place], [place] - [address] AT [facility] Recent Visits Date Type Provider Dept 08/14/24 [...] ago (08/14/2024) by JOSHUA Rodas [facility]4011/09/2024 03:31 PM Protocol Details Manual Review: Verify no changes in dose in the last 3 months Valid encounter within last 12 months To be filled at: [id number] - [place], [place] - [address] AT [facility] [employer] 2024-10-04 08:16:29 Refill requested for spironolactone 25 mg JORDAN 08/22/2024 "Due to rising BUN, creatinine and potassium, stop spironolactone." [facility] Haylee Cook RN [facility] 2024-10-04 07:54:41 Images from the original note were not included. Patients pharmacy is requesting for this medication to be refilled but I do not see this In their chart. Please advise, thank you. Go [facility] 2024-08-22 13:30:00 Images from the original note were not included. Venipuncture collection performed by clean technique on the left anticubitus. Total of 1 attempts were made. Slight pressure and a bandage/dressing were applied to the site(s). The patient experienced no complications. The following specimens were processed according to instructions and sent to [facility] laboratories per lab order on 08/22/2024 : LT BLUE SST 2 RED LAV 1 PPT DK GREEN (LiHep) DK GREEN (SodH) ZHANG DK BLUE (K2) DK BLUE (S) ACD Blood Culture NIPT/NTD [facility] 2024-08-21 17:15:01 I sent increased dosage of levothyroxine let recheck in [address] the orders. Just have her come in for labs [facility] 2024-08-14 14:00:00 Images from the original note were not included. Venipuncture collection performed by clean technique on the right anticubitus. Total of 1 attempts were made. Slight pressure and a bandage/dressing were applied to the site(s). The patient experienced no complications. The following specimens were processed according to instructions and sent to [facility] laboratories per lab order on 08/14/2024 : LT BLUE SST 2 RED LAV 1 PPT DK GREEN (LiHep) DK GREEN (SodH) ZHANG DK BLUE (K2) DK BLUE (S) ACD Blood Culture NIPT/NTD [facility] 2024-08-03 14:46:25 Last Refilled: Disp Refills Start End ALAN levothyroxine 50 mcg tablet 30 tablet 0 07/07/2024 -- -- Sig: Take 1 tablet by mouth every morning. On empty stomach. Sent to pharmacy as: levothyroxine 50 mcg tablet (SYNTHROID) Class: eRX Route: Oral Order: [id number] Date/Time Signed: 07/07/2024 11:19 E-Prescribing Status: Receipt confirmed by pharmacy (07/07/2024 11:20 AM CDT) Notes: Please review and fill if appropriate Recent Visits Date Type Provider Dept 05/12/24 Office Visit Nicolle Rondon FNP Ang-Db [...] authorizing provider and meeting all other requirements Hammer Smith Visit on 05/12/2024 Component Date Value FOLATE [...] 05/12/2024 0.10 BASO x10 3 05/12/2024 <0.03 Hammer Smith Visit on 03/10/2024 Component Date Value NT-proBNP 03/10/2024 1,590 (H) NA 03/10/2024 137 K 03/10/2024 3.8 CL 03/10/2024 100 CO2 TOTAL 03/10/2024 27 AGAP 03/10/2024 10 BUN 03/10/2024 27 (H) GLUCOSE 03/10/2024 94 CREATININE 03/10/2024 0.67 CALCIUM 03/10/2024 9.7 eGFR 03/10/2024 91.8 Hammer Smith Visit on 02/22/2024 Component Date Value NA [...] 02/22/2024 0.10 BASO x10 3 02/22/2024 0.03 ENGINEER Amber Ewing RN [facility] 2024-07-07 10:51:46 Patient requesting a refill of: Medication: LEVOTHYROXINE Dose: 50 mg Route: refill Quantity: 30 Pharmacy: [facility]/pharmacy #[id number] - [place], [place] - [address] AT [facility] [address] [facility] [address] Last appt.: 05/12 Next appt.: 08/14 [facility] 2024-07-06 08:49:54 Images from the original note were not included. T [facility] 2024-07-06 08:47:40 Images from the original note were not included. Chiquis Gaming is a 74 year old female Received refill request from pharmacy . Please advise . [facility] 2024-05-12 14:15:00 Images from the original note were not included. Venipuncture collection performed by clean technique on the right anticubitus. Total of 1 attempts were made. Slight pressure and a bandage/dressing were applied to the site(s). The patient experienced no complications. The following specimens were processed according to instructions and sent to [facility] laboratories per lab order on 05/12/2024 : LT BLUE SST 2 RED LAV 1 PPT DK GREEN (LiHep) DK GREEN (SodH) ZHANG DK BLUE (K2) DK BLUE (S) ACD Blood Culture NIPT/NTD [facility] 2024-04-13 11:12:50 Received 90 day request for Spironolactone, meets ambulatory guidelines, sent to [place] [id number] [place], [place] - [facility] [place] [address] [facility] 2024-04-11 09:45:00 Pharmacy sent a fax requesting a 90 day prescription request for Spironolactone 25 MG Tablet and Furosemide 20 MG Tablet. Please advise. Kristen Cornell [facility] 2024-04-06 15:36:29 Please review and sign if [...] DULoxetine 20 mg capsule Juliann Rascon LVN [facility] 2024-03-30 09:06:08 Results discussed during office visit Haylee Cook RN [facility] 2024-03-13 08:25:59 Patient notified via private, detailed voicemail to keep her upcoming appt 03/14/24 with Nicolle Rondon NP per the provider. Advised to call back if she has any questions or concerns. Ilsa Rosales LVN 03/13/2024 8:26 AM Ilsa Rosales LVN [facility] 2024-03-13 08:02:34 Yes I recommend keeping follow up apt, I want to make sure she has everything set up that is needed [facility] 2024-03-10 15:41:54 Chiquis Gaming is a 73 year old female Pt is calling stating that she has an appointment on 03/14 with Nicolle Rondon. Pt states her cardiologists is going to be monitoring her medication Lasix. Pt is asking if she still needs this appointment on 03/14. Please advise. [phone] (home) Anjelica Talbot [facility] 2024-03-10 13:15:00 Images from the original note were not included. Only here for Dr Keita's labs per patient request. Venipuncture collection performed by clean technique on the right anticubitus. Total of 1 attempts were made. Slight pressure and a bandage/dressing were applied to the site(s). The patient experienced no complications. The following specimens were processed according to instructions and sent to [facility] laboratories per lab order on 03/10/2024 : LT BLUE SST 1 RED LAV PPT DK GREEN (LiHep) DK GREEN (SodH) ZHANG DK BLUE (K2) DK BLUE (S) ACD Blood Culture NIPT/NTD [facility] 2024-02-29 10:24:03 Followed up with patient. She reports that she is not having headaches. I relayed the recommendations to her per JOSHUA Rodas. She voiced understanding. Amber Ewing RN [facility] 2024-02-25 08:10:22 Pt has apt with Dr. Pompa on 03/07 please keep apt, We need to try to continue with lasix , can break in half and take the second half around noon. The lasix is going help pull of fluids [facility] 2024-02-24 15:16:22 Please call and schedule follow up with Nicolle Rondon per Dr. Payne note. Ml Rosado RN [facility] 2024-02-24 15:00:45 Good ER precautions, Follow uo with Ms Rondon in the nest few days. FM-FAMILY MEDICINE STAFF [facility] 2024-02-24 14:53:12 Patient states she took lasix at 0900 this AM and has had a headache ever since. Patient states she isn't sure if that is what is the cause but the only thing different. Patient rates the pain with LOPEZ at 4/10 and states it is getting [...] Patient verbalizes understanding. Please review and advise. [facility] 2024-02-24 14:33:47 Please advise or ask provider in clinic today. [facility] [employer] 2024-02-24 14:30:14 Chiquis Gaming is a 73 year old female Pt's Nurse with [facility] is calling stating pt has been experiencing a headache since taking her Furosemide medication this morning, 02/24/24, and nurse also stated pt's latest blood pressure reading being 176/89 with a heart rate of 57 BPM. Please contact pt at [phone] (home) Sheldon Real [facility] 2024-02-23 11:25:30 Patient viewed on My Chart. A my chart message has been sent to patient with the results/recommendations per the provider. [facility] [employer] 2024-02-23 11:11:40 Repeat CBC in 6 weeks Increase iron to bid if pt is able to tolerate and see Oncology/hematology as planned [facility] [employer] 2024-02-23 10:36:57 Contacted patients daughter to clarify. Pts daughter stated she would purchase inhaler spacer herself and owuld follow up with cardio and gi. Pt schedule on for f/u visit. [employer] [facility] [employer] 2024-02-22 16:58:14 What does insurance perfer ? We will start lasix 20mg daily Needs to see Cardio ROSA please give ER precautions for SOB or chest pain. RTO in 2 weeks. [facility] 2024-02-22 14:58:24 Pharmacy comment: Alternative Requested:NOT COVERED BY HER INSURANCE. PLEASE SEND AN ALTERNATIVE OR DO A PRIOR AUTHORIZATION. Ilsa Rosales LVN [facility] 2024-02-22 14:00:00 Images from the original note were not included. Venipuncture collection performed by clean technique on the right anticubitus. Total of 1 attempts were made. Slight pressure and a bandage/dressing were applied to the site(s). The patient experienced no complications. The following specimens were processed according to instructions and sent to [facility] laboratories per lab order on 02/22/2024 : LT BLUE SST 2 RED LAV 2 PPT DK GREEN (LiHep) DK GREEN (SodH) ZHANG DK BLUE (K2) DK BLUE (S) ACD Blood Culture NIPT/NTD [facility] 2023-12-24 13:48:00 [facility] ([facility]) Rehab Discharge Summary REPORT#:[id number] REPORT STATUS: Signed REPORT INITIALIZATION DATE:12/24/23 TIME: 1347 PATIENT: JUSTYNA GAMING UNIT #: [id number] ROOM/BED: [place] [address] : 49 AGE: 73 SEX: F ATTEND: Fern Mata MD ADM AUTHOR: Haylee Hamilton PA-C REPT SERVICE DT/TIME: 12/24/23 1348 * ALL edits or amendments must be [...] mass, normal tone, range of motion normal Neuro/SOFTWARE DEVELOPMENT LEADER: alert, oriented X 3, CNII-XII intact, no [...] oncologist that she has been seen at [facility] in [place]. She will need to follow with Dr. [...] Instructions Discharge Instructions Discharge to: Home Health lan of Care Additional Discharge Routines: PCP Follow-Up, Parachute/Combatant Diver Officer Follow-Up Diet: Regular Prescriptions: e-prescribe Discharge management: [...] timeframe: In 1-2 weeks at 2234 RPT #:[id number] END OF REPORT [facility] 2023-12-23 20:46:00 [facility] ([facility]) Tevin/Oncology Progress Note REPORT#:[id number] REPORT STATUS: Signed REPORT INITIALIZATION DATE:12/23/23 TIME: 2045 PATIENT: JUSTYNA GAMING UNIT #: [id number] ROOM/BED: [place] [address] : 49 AGE: 73 SEX: F ATTEND: [...] Resp B/P B/P Mean Pulse Ox FiO2 /-12/22 36.5-36.9 52-84 16-18 142-169/65-76 92.5-106.4 92-97 Last [...] non-tender, soft, no mass/organomegaly Extremities: moves all Neuro/SOFTWARE DEVELOPMENT LEADER: alert, oriented X 3, no motor deficits, [...] please call if questions. at 2050 RPT #:[id number] END OF REPORT [facility] 2023-12-23 15:53:00 [facility] ([facility]) Rehab Progress Note REPORT#:[id number] REPORT STATUS: Signed REPORT INITIALIZATION DATE:12/23/23 TIME: 1552 PATIENT: JUSTYNA GAMING UNIT #: [id number] ROOM/BED: [place] [address] : 49 AGE: 73 SEX: F ATTEND: Fern Mata MD ADM AUTHOR: Fern Mata MD REPT SERVICE DT/TIME: 12/23/23 1553 * ALL edits or amendments must be [...] mass, normal tone, range of motion normal Neuro/SOFTWARE DEVELOPMENT LEADER: alert, oriented X 3, CNII-XII intact, no [...] oncologist that she has been seen at [facility] in [place]. She will need to follow with Dr. [...] with interdisciplinary treatment plan. at 1555 RPT #:[id number] END OF REPORT [facility] 2023-12-22 21:21:00 [facility] Hospitalist Progress Note REPORT#:[id number] REPORT STATUS: Signed REPORT INITIALIZATION DATE:12/22/23 TIME: 2120 PATIENT: JUSTYNA GAMING UNIT #: [id number] ROOM/BED: [place] [address] : 49 AGE: 73 SEX: F ATTEND: [...] Extremities: TRACE PRETIBIAL EDEMA Musculoskeletal: decreased ROM Neuro/SOFTWARE DEVELOPMENT LEADER: alert, oriented X 3 Skin: normal color [...] elevated, Will adjust medication. at 2122 RPT #:[id number] END OF REPORT [facility] 2023-12-22 14:40:00 [facility] ([facility] Rehab Team Conference REPORT#:[id number] REPORT STATUS: Signed REPORT INITIALIZATION DATE:12/22/23 TIME: 144 PATIENT: JUSTYNA GAMING UNIT #: [id number] ROOM/BED: [place] [address] : 49 AGE: 73 SEX: F ATTEND: Fern Mata MD ADM AUTHOR: Fern Mata MD REPT SERVICE DT/TIME: 12/22/23 1440 * ALL edits or amendments must be made on the electronic/computer document * Rehabilitation Team Conference Weekly Team Conference Team conf information: Date of conference: 12/22/23 Conference type: Initial Conference scribe: Donna Tolbert PTA INTERDISCIPLINARY TEAM MEETING PARTICIPANTS: TITLE NAME MD ELZA Vanegas, RN SONIA Copeland, SONIA Hopkins OT CM/SHANE Saba NO ATTENDEE [facility] Marina Clark, PRESSURE VESSEL INSPECTOR Staff (8) SNEHAL Motley Staff (9) NO ATTENDEE OTHER NAME CREDENTIALS 1 2 FUNCTIONAL CHANGE: TYPE ADMISSION TOTAL INTERIM TOTAL CHANGE Self care 19 12 Transfer 5 Mobility 14 26 12 Wheelchair distance: [...] HHOT ST team conference update: CM or SW team conference update: PATIENT LIVES AT HOME ALONE IN AN APARTMENT IN [place]. SHE WOULD LIKE TO MOVE TO THE [...] Twelve steps discharge goal: Partial/moderate asst (3) [place] 150 feet discharge goal: Independent (6) Goal [...] FALL EMMY NJURY. 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 IRF cont stay criteria D/C HOME 12/23 at 1441 RPT #:[id number] END OF REPORT [facility] 2023-12-22 13:23:00 [facility] ([facility]) Rehab Progress Note REPORT#:[id number] REPORT STATUS: Signed REPORT INITIALIZATION DATE:12/22/23 TIME: 132 PATIENT: JUSTYNA GAMING UNIT #: [id number] ROOM/BED: [place] [address] : 49 AGE: 73 SEX: F ATTEND: [...] mass, normal tone, range of motion normal Neuro/SOFTWARE DEVELOPMENT LEADER: alert, oriented X 3, CNII-XII intact, no [...] oncologist that she has been seen at [facility] in [place]. She will need to follow with Dr. [...] with interdisciplinary treatment plan. at 1636 RPT #:[id number] END OF REPORT [facility] 2023-12-21 18:35:00 [facility] ([facility]) Tevin/Oncology Progress Note REPORT#:[id number] REPORT STATUS: Signed REPORT INITIALIZATION DATE:12/21/23 TIME: 1834 PATIENT: JUSTYNA GAMING UNIT #: [id number] ROOM/BED: [place] [address] : 49 AGE: 73 SEX: F ATTEND: [...] Documented: Result Date Time Pulse Ox 96 12/20 1600 B/P 151/70 / 1600 B/P Mean 97.4 12/20 1600 O2 Delivery Room air 12/20 1600 Temp 36.7 12/20 1600 Pulse 59 12/20 1600 Resp 16 12/20 1600 General appearance: awake HEENT: pupils reactive to light Cardiovascular: regular rate and rhythm, normal heart sounds Respiratory: aerating well, symmetric expansion, no distress Abdomen: non-tender, soft, no mass/organomegaly Extremities: moves all Neuro/SOFTWARE DEVELOPMENT LEADER: alert, oriented X 3, no motor deficits, [...] PRN PO Results Findings/Data: Laboratory Tests 12/21/23 0511: [Embedded Image Not Available] Laboratory Tests 12/20 [...] - 5.0 g/dL) 3.00 L Laboratory Tests 04/02 0511 Hematology WBC (4.5 - 11.0 x10 [...] (Auto) (14.0 - 32.0 %) 8.0 L Bladen % (Auto) (4.8 - 9.0 %) 4.3 L Eos % (Auto) (0.3 - 3.7 %) 0.0 L Baso % (Auto) (0.0 - 2.0 %) 0.3 Neut # (Auto) (2.0 - 7.6 x10 3/uL) 9.20 H Lymph # (Auto) (1.0 - 3.8 x10 3/uL) 0.87 L Bladen # (Auto) (0.1 - 0.8 x10 3/uL) [...] Report Impression - Status: SIGNED Entered: 12/21/2023 9619 IMPRESSION: 1. Unremarkable brain. 2. Abnormal enhancement [...] po bid if stable. at 1837 RPT #:[id number] END OF REPORT [facility] 2023-12-21 13:03:00 [facility] ([facility]) Rehab Progress Note REPORT#:[id number] REPORT STATUS: Signed REPORT INITIALIZATION DATE:12/21/23 TIME: 1303 PATIENT: JUSTYNA GAMING UNIT #: [id number] ROOM/BED: [place] [address] : 49 AGE: 73 SEX: F ATTEND: [...] PT C/O PAIN ON R HIP PS 11/27. ASSISTED PT BACK TO ROOM AND LEFT PT SITTING IN W/C WITH ALL NEEDS MET AND WITHIN REACH. ELZA HAWA WAS MADE AWARE AND NOTIFIED. A: [...] mass, normal tone, range of motion normal Neuro/SOFTWARE DEVELOPMENT LEADER: alert, oriented X 3, CNII-XII intact, no [...] (Auto) (14.0 - 32.0 %) 8.0 L Bladen % (Auto) (4.8 - 9.0 %) 4.3 L Eos % (Auto) (0.3 - 3.7 %) 0.0 L Baso % (Auto) (0.0 - 2.0 %) 0.3 Neut # (Auto) (2.0 - 7.6 x10 3/uL) 9.20 H Lymph # (Auto) (1.0 - 3.8 x10 3/uL) 0.87 L Bladen # (Auto) (0.1 - 0.8 x10 3/uL) [...] oncologist that she has been seen at [facility] in [place]. She will need to follow with Dr. [...] with interdisciplinary treatment plan. at 1552 RPT #:[id number] END OF REPORT [facility] 2023-12-20 20:36:00 [facility] Tevin/Oncology Progress Note REPORT#:[id number] REPORT STATUS: Signed REPORT INITIALIZATION DATE:12/20/23 TIME: 2035 PATIENT: JUSTYNA GAMING UNIT #: [id number] ROOM/BED: [place] [address] : 49 AGE: 73 SEX: F ATTEND: [...] 12/19 1825 O2 Delivery Room air 12/19 182 Temp 36.8 12/19 182 Pulse 64 12/19 1825 Resp 17 12/19 1825 General appearance: awake HEENT: pupils reactive to light Cardiovascular: regular rate and rhythm, normal heart sounds Respiratory: aerating well, symmetric expansion, no distress Abdomen: non-tender, soft, no mass/organomegaly Extremities: moves all Neuro/SOFTWARE DEVELOPMENT LEADER: alert, oriented X 3, no motor deficits, [...] (4.5 - 11.0 x10 3/uL) 9.3 12/17 0609 RBC (3.54 - 5.02 x10 6/uL) 3.63 12/17 0609 Hgb (11.0 - 15.0 g/dL) 11.0 12/17 0609 Hct (33.0 - 45.0 %) 32.1 L 12/17 0509 MCV (81.0 - 99.0 fL) 88.4 12/17 0609 MCH (27.0 - 33.0 pg) 30.3 12/17 0509 MCHC (33.0 - 37.0 g/dL) 34.3 12/17 0609 RDW (11.5 - 14.5 %) 14.3 12/17 608 Plt Count (150 - 400 x10 3/uL) 192 12/17 0509 MPV (7.0 - 9.0 fL) 11.2 H 12/17 608 Neut % (Auto) (56.0 - 77.0 %) 85.8 H 12/17 0509 Lymph % (Auto) (14.0 - 32.0 %) 7.0 L 12/17 0509 Bladen % (Auto) (4.8 - 9.0 %) 5.4 12/17 0509 Eos % (Auto) (0.3 - 3.7 %) 0.0 L 12/17 608 Baso % (Auto) (0.0 - 2.0 %) 0.2 12/17 608 Neut # (Auto) (2.0 - 7.6 x10 3/uL) 7.98 H 12/17 608 Lymph # (Auto) (1.0 - 3.8 x10 3/uL) 0.65 L 12/17 0509 Bladen # (Auto) (0.1 - 0.8 x10 3/uL) 0.50 12/17 0509 Eos # (Auto) (0.0 - 0.2 x10 3/uL) 0.00 12/17 0509 Baso # (Auto) (0.0 - 0.2 x10 3/uL) 0.02 12/17 0509 Abs Immat Gran (auto) (0.00 - 0.03 [...] for spinal epidural mass. at 2039 RPT #:[id number] END OF REPORT [facility] 2023-12-20 16:05:00 [facility] ([facility]) Rehab Progress Note REPORT#:[id number] REPORT STATUS: Signed REPORT INITIALIZATION DATE:12/20/23 TIME: 1604 PATIENT: JUSTYNA GAMING UNIT #: [id number] ROOM/BED: [place] [address] : 49 AGE: 73 SEX: F ATTEND: [...] mass, normal tone, range of motion normal Neuro/SOFTWARE DEVELOPMENT LEADER: alert, oriented X 3, CNII-XII intact, no [...] oncologist that she has been seen at [facility] in [place]. She will need to follow with Dr. [...] with interdisciplinary treatment plan. at 1607 RPT #:[id number] END OF REPORT [facility] 2023-12-20 15:03:00 [facility] Hospitalist Progress Note REPORT#:[id number] REPORT STATUS: Signed REPORT INITIALIZATION DATE:12/20/23 TIME: 1503 PATIENT: JUSTYNA GAMING UNIT #: [id number] ROOM/BED: [place] [address] : 49 AGE: 73 SEX: F ATTEND: [...] Flow FiO2 Mean Ox Delivery Rate 12/19 626 97.7 49 16 164/71 102.1 96 12/19 [...] Extremities: TRACE PRETIBIAL EDEMA Musculoskeletal: decreased ROM Neuro/SOFTWARE DEVELOPMENT LEADER: alert, oriented X 3 Skin: normal color [...] and adjust medication accordingly at 1505 RPT #:[id number] END OF REPORT [facility] 2023-12-19 13:31:00 [facility] Hospitalist Progress Note REPORT#:[id number] REPORT STATUS: Signed REPORT INITIALIZATION DATE:12/19/23 TIME: 133 PATIENT: JUSTYNA GAMING UNIT #: [id number] ROOM/BED: [place] [address] : 49 AGE: 73 SEX: F ATTEND: [...] Extremities: TRACE PRETIBIAL EDEMA Musculoskeletal: decreased ROM Neuro/SOFTWARE DEVELOPMENT LEADER: alert, oriented X 3 Skin: normal color [...] 50 mg twice daily. at 1333 RPT #:[id number] END OF REPORT [facility] 2023-12-18 15:48:00 [facility] Hospitalist Progress Note REPORT#:[id number] REPORT STATUS: Signed REPORT INITIALIZATION DATE:12/18/23 TIME: 1547 PATIENT: JUSTYNA GAMING UNIT #: [id number] ROOM/BED: [place] [address] : 49 AGE: 73 SEX: F ATTEND: Fern Mata MD ADM AUTHOR: Travis Chavez DO REPT SERVICE DT/TIME: 12/18/238 * ALL edits or amendments must be [...] (kg): 85.000 Results Findings/Data: Laboratory Tests 12/17 06 Chemistry Sodium (134 - 147 mEq/L) 136 [...] 5.0 g/dL) 2.90 L Laboratory Tests 12/17 06 Hematology WBC (4.5 - 11.0 x10 3/uL) [...] (Auto) (14.0 - 32.0 %) 7.0 L Bladen % (Auto) (4.8 - 9.0 %) 5.4 Eos % (Auto) (0.3 - 3.7 %) 0.0 L Baso % (Auto) (0.0 - 2.0 %) 0.2 Neut # (Auto) (2.0 - 7.6 x10 3/uL) 7.98 H Lymph # (Auto) (1.0 - 3.8 x10 3/uL) 0.65 L Bladen # (Auto) (0.1 - 0.8 x10 3/uL) [...] Extremities: TRACE PRETIBIAL EDEMA Musculoskeletal: decreased ROM Neuro/SOFTWARE DEVELOPMENT LEADER: alert, oriented X 3 Skin: normal color [...] 5 mg at bedtime for hypertension. at 1545 RPT #:[id number] END OF REPORT [facility] 2023-12-17 22:10:00 [facility] Rehab Indiv Overall POC REPORT#:[id number] REPORT STATUS: Signed REPORT INITIALIZATION DATE:12/17/23 TIME: 2209 PATIENT: JUSTYNA GAMING UNIT #: [id number] ROOM/BED: [place] [address] : 49 AGE: 73 SEX: F ATTEND: Fern Mata MD ADM AUTHOR: Fern Mata MD REPT SERVICE DT/TIME: 12/17/232209 * ALL edits or amendments must be [...] Setup/clean-up only (5) object discharge goal: CARE [place] 50 feet Independent (6) with two turns discharge goal: CARE [place] 150 Independent (6) feet discharge goal: CARE [...] mgt/care, Complex pain management at 2210 RPT #:[id number] END OF REPORT [facility] 2023-12-17 15:10:00 [facility] ([facility]) Rehab History Physical REPORT#:[id number] REPORT STATUS: Signed REPORT INITIALIZATION DATE:12/17/23 TIME: 1509 PATIENT: JUSTYNA GAMING UNIT #: [id number] ROOM/BED: [place] [address] : 49 AGE: 73 SEX: F ATTEND: [...] been followed ( last in ) at [facility] by Dr. Mcqueen (breast surgeon) since [...] disease, Periph arterial disease, Pressure ulcer, Prior VA, Schizophrenia, Sickle cell disease, Steroid use, Transfusion [...] surgery, Nephrectomy, PCI, Prostate surgery, Thyroidectomy, Tracheotomy, SOIL SCIENCE TEACHER shunt. Additional surgical history: Bilateral Breast lumpectomy [...] 12/16 1552 O2 Delivery Room air 12/16 09 PATIENT WEIGHT: Weight (lb): 187 Weight (oz): 6.29 Weight (kg): 85.000 General appearance: alert, awake, oriented HEENT: mucosal membranes moist, pupils reactive to light Neck: supple Cardiovascular: regular rate rhythm Respiratory: clear bilaterally Abdomen: obese, soft, non-tender Skin: incision, (COVERED WITH AQUACEL), dry, intact Musculoskeletal - general: Musculoskeletal - general: normal muscle mass, normal tone, range of motion normal Neuro/SOFTWARE DEVELOPMENT LEADER: alert, oriented X 3, CNII-XII intact, no [...] oncologist that she has been seen at [facility] in [place]. She will need to follow with Dr. [...] mgt/care, Complex pain management at 1616 RPT #:[id number] END OF REPORT [facility] 2023-12-17 12:35:00 [facility] Hospitalist Progress Note REPORT#:[id number] REPORT STATUS: Signed REPORT INITIALIZATION DATE:12/17/23 TIME: 1234 PATIENT: JUSTYNA GAMING UNIT #: [id number] ROOM/BED: [place] [address] : 49 AGE: 73 SEX: F ATTEND: [...] Rate 12/16 0929 95 Room air 12/16 06 97.9 56 16 155/72 99.5 95 12/16 [...] Extremities: TRACE PRETIBIAL EDEMA Musculoskeletal: decreased ROM Neuro/SOFTWARE DEVELOPMENT LEADER: alert, oriented X 3 Skin: normal color [...] hospital for 5 treatments. at 1239 RPT #:[id number] END OF REPORT [facility] 2023-12-17 08:57:00 [facility] Tevin/Oncology Progress Note REPORT#:[id number] REPORT STATUS: Signed REPORT INITIALIZATION DATE:12/17/23 TIME: 856 PATIENT: JUSTYNA GAMING UNIT #: [id number] ROOM/BED: [place] [address] : 49 AGE: 73 SEX: F ATTEND: [...] Documented: Result Date Time Pulse Ox 95 03/29 0629 B/P 155/72 12/16 628 B/P Mean 99.5 12/16 628 Temp 36.6 12/16 628 Pulse 56 12/16 628 Resp 16 12/16 628 General appearance: alert, awake, oriented HEENT: pupils reactive to light Cardiovascular: regular rate and rhythm, normal heart sounds Respiratory: aerating well, symmetric expansion, no distress Abdomen: non-tender, soft, no mass/organomegaly Extremities: moves all Neuro/SOFTWARE DEVELOPMENT LEADER: alert, oriented X 3, no motor deficits, [...] 25-Hydroxy (30 - 100 ng/mL) 37.7 12/16 050 Folate (3.1 - 17.5 ng/mL) 8.2 12/16 050 TSH (0.42 - 5.47) 4.79 12/16 050 Current Medications Sig/Fozia Start time Last Medication Dose Route Stop Time Status Admin Hydrochlorothiazide 12.5 MG DAILY 12/16 899 AC PO 03/16 859 Losartan Potassium 25 MG DAILY 12/16 899 AC PO 06/27 0859 Bisacodyl 10 MG BEDTIME 12/15 2100 [...] hydraion pending ca and path at 0905 [facility] #:[id number] END OF REPORT [facility] 2023-12-16 14:14:00 [facility] ([facility]) Orthopaedic Progress Note REPORT#:[id number] REPORT STATUS: Signed REPORT INITIALIZATION DATE:12/16/23 TIME: 1413 PATIENT: JUSTYNA GAMING UNIT #: [id number] ROOM/BED: [place] [address] : 49 AGE: 73 SEX: F ATTEND: Rah Guzman MD ADM AUTHOR: Josephine Cedillo REPT SERVICE DT/TIME: 12/16/23 141 * ALL edits or amendments must be [...] 0734 B/P Mean 84.1 12/15 0734 Temp 36.6 12/15 0734 Pulse 68 [...] Sodium Chloride (SODIUM CHLORIDE 0.9%) 1,000 ML .[id number] IV (DC) Free Text Obj Notes Free [...] when cleared from PT at 1419 at 9858 RPT #:[id number] END OF REPORT [facility] 2023-12-16 13:53:00 [facility] ([facility]) Rehab Preadmission Screen REPORT#: REPORT STATUS: DATE:12/16/23 TIME: 135 PATIENT: JUSTYNA GAMING UNIT #: ROOM: BED: [...] solid lines has been imported from [facility] documentation. PREADMISSION INFORMATION: DEMOGRAPHICS: Assessment date: 12/16/23 Assessment time: 1120 Patient has an Advanced Directive: No Content of advance directive/living will/plan of care: Copy of advance directive on chart: Referring physician: RAH MORENO-HOSPITALIST Primary care provider: Consulting physician(s): FERN VARGAS-PMR TIM FRAZIER.ONC. 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 Prior living situation: Home Living with: Alone Living with comment: ANTICIPATED DC PLAN/POST IRF: Primary support contact: KATIUSKA GAMING Relationship to patient: CR Phone number 1: [phone] Phone number 2: Caregiver availability: 24 hours [...] in acute inpatient rehab: Rehab nursing 12/04, field training manager, Occupational therapy, Physical therapy, Dietitian, Respiratory therapy Acute hospital documents reviewed prior to admission decision: Acute History/ Physical, Consult notes, Operative reports, Progress notes, Lab/diagnostics, Therapy notes, Vital signs, Other ancillary notes CRS ELECTRONIC SIGNATURE: CRS #1 electronic signature: ANJELICA CROWE CRS credentials: CRRN Date: 12/16/23 Time: 1158 CRS #2 electronic signature: CRS credentials: Date: Time: CRS #3 electronic signature: CRS credentials: Date: Time: Provider Pre-Admit Summary Acute IP rehab admit: criteria met MD determination Based upon my evaluation and review of the supporting assessment documentation and consultation with the preadmission online merchandiser, I have determined, prior to admitting this [...] mgt/care, Complex pain management at 1355 RPT #:[id number] END OF REPORT [facility] 2023-12-16 11:36:00 [facility] ([facility]) Hospitalist Discharge Summary REPORT#:[id number] REPORT STATUS: Signed REPORT INITIALIZATION DATE:12/16/23 TIME: 1136 PATIENT: JUSTYNA GAMING UNIT #: [id number] ROOM/BED: 434[address]1 : 49 AGE: 73 SEX: F ATTEND: Rah Guzman MD ADM AUTHOR: Rah Guzman MD REPT SERVICE DT/TIME: 12/16/23 0236 * ALL edits or amendments must be [...] Extremities: TRACE PRETIBIAL EDEMA Musculoskeletal: decreased ROM Neuro/SOFTWARE DEVELOPMENT LEADER: alert, oriented X 3 Skin: normal color [...] (Auto) (14.0 - 32.0 %) 5.9 L Bladen % (Auto) (4.8 - 9.0 %) 7.0 Eos % (Auto) (0.3 - 3.7 %) 0.0 L Baso % (Auto) (0.0 - 2.0 %) 0.1 Neut # (Auto) (2.0 - 7.6 x10 3/uL) 9.46 H Lymph # (Auto) (1.0 - 3.8 x10 3/uL) 0.65 L Bladen # (Auto) (0.1 - 0.8 x10 3/uL) [...] with: patient, HER NURSE at 1142 RPT #:[id number] END OF REPORT [facility] 2023-12-16 10:46:00 [facility] ([facility]) Acute Rehab Consult REPORT#:[id number] REPORT STATUS: Signed REPORT INITIALIZATION DATE:12/16/23 TIME: 1046 PATIENT: JUSTYNA GAMING UNIT #: [id number] ROOM/BED: [place] [address] : 49 AGE: 73 SEX: F ATTEND: [...] been followed ( last in ) at [facility] by Dr. Mcqueen (breast surgeon) since [...] CANAL AT T9-T10 AND T10-T11. 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 ACTIVITY 20740 SELF/HOME MGT/ADL 48330 Comments: SKILLED OT EVALUATION COMPLETED FOR PATIENT [...] AND DAUGHTER. BEGINNING TRAINING WITH USE OF ALLERGY AND IMMUNOLOGY CHIEF, SOCK AIDE, DRESSING STICK, LONG HANDLE BATH SPONGE ISSUED TO PATIENT. PATIENT VERBALIZED UNDERSTANDING. DAUGHTER IS A RETIRED OCCUPATIONAL THERAPIST AND WILL ASSIST PRATIMA UPON DC HOME. PATIENT MOVED WITH MOD [...] Normal Gross Motor Coordination: Normal Right Hand Rice Dryer Mechanic Strength: Good Left Hand Rice Dryer Mechanic Strength: Good FUNCTIONAL MOBILITY FUNCTIONAL MOBILITY Items [...] as brushing teeth? 4 Eating meals? 4 [facility] Activity Score: 13 ACTIVITIES OF DAILY LIVING Items determined to be outside Functional Limits are as follows: Upper Body Dressing: Minimal Assistance Lower Body Dressing: Dependent Hygiene/Grooming: Supervision or Set-up Feeding: Modified [place] Toileting: Dependent Comments: PURWICK IN PLACE, POSTERIOR HIP PRECAUTIONS, INTRODUCED USE OF ALLERGY AND IMMUNOLOGY CHIEF, SOCK AIDE, LONG HANDLE BATH SPONGE AND [...] disease, Periph arterial disease, Pressure ulcer, Prior VA, Schizophrenia, Sickle cell disease, Steroid use, Transfusion [...] surgery, Nephrectomy, PCI, Prostate surgery, Thyroidectomy, Tracheotomy, SOIL SCIENCE TEACHER shunt. Additional surgical history: Bilateral Breast lumpectomy [...] normal, range of motion normal, no atrophy Neuro/SOFTWARE DEVELOPMENT LEADER: alert, oriented X 3, normal speech, no sensory deficits Results Findings/Data: Laboratory Tests: 12/15 0539 Chemistry [...] (Auto) (14.0 - 32.0 %) 5.9 L Bladen % (Auto) (4.8 - 9.0 %) 7.0 Eos % (Auto) (0.3 - 3.7 %) 0.0 L Baso % (Auto) (0.0 - 2.0 %) 0.1 Neut # (Auto) (2.0 - 7.6 x10 3/uL) 9.46 H Lymph # (Auto) (1.0 - 3.8 x10 3/uL) 0.65 L Bladen # (Auto) (0.1 - 0.8 x10 3/uL) [...] - Timothy Grissom M.D. Diagnosis, Assessment Plan Problem List/A [...] ] No explain why at 2241 RPT #:[id number] END OF REPORT [facility] 2023-12-16 10:11:00 [facility] Hospitalist Progress Note REPORT#:[id number] REPORT STATUS: Signed REPORT INITIALIZATION DATE:12/16/23 TIME: 1011 PATIENT: JUSTYNA GAMING UNIT #: [id number] ROOM/BED: [place] [address] : 49 AGE: 73 SEX: F ATTEND: [...] Sodium Chloride (SODIUM CHLORIDE 0.9%) 1,000 ML .[id number] IV (DC) Diphenhydramine HCl (BENADRYL) 12.5 MG [...] Sodium Chloride (SODIUM CHLORIDE 0.9%) 1,000 ML .[id number] IV Physical Exam General appearance: chronically ill appearing, obese, alert, awake Head/Eyes: WEARING EYEGLASSES Neck: no JVD Cardiovascular: regular rate rhythm Respiratory: aerating well, clear to auscultation, symmetric expansion Abdomen: obese, non-tender, normal bowel sounds, soft Extremities: TRACE PRETIBIAL EDEMA Musculoskeletal: decreased ROM Neuro/SOFTWARE DEVELOPMENT LEADER: alert, oriented X 3 Skin: normal color [...] (Auto) (14.0 - 32.0 %) 5.9 L Bladen % (Auto) (4.8 - 9.0 %) 7.0 Eos % (Auto) (0.3 - 3.7 %) 0.0 L Baso % (Auto) (0.0 - 2.0 %) 0.1 Neut # (Auto) (2.0 - 7.6 x10 3/uL) 9.46 H Lymph # (Auto) (1.0 - 3.8 x10 3/uL) 0.65 L Bladen # (Auto) (0.1 - 0.8 x10 3/uL) [...] the hospital for 5 treatments. at 1016 RPT #:[id number] END OF REPORT [facility] 2023-12-15 22:49:00 [facility] ([facility]) Tevin/Oncology Progress Note REPORT#:[id number] REPORT STATUS: Signed REPORT INITIALIZATION DATE:12/15/23 TIME: 2248 PATIENT: JUSTYNA GAMING UNIT #: [id number] ROOM/BED: [place] [address] : 49 AGE: 73 SEX: F ATTEND: [...] non-tender, soft Extremities: post right hip surgery Neuro/SOFTWARE DEVELOPMENT LEADER: alert, normal speech, no motor deficits Current Medications Medications: Active Meds + DC'd Last 24 Hrs Enoxaparin Sodium (lovENOX) 30 MG Q12HR SUBQ Cefazolin Sodium (KEFZOL OR ANCEF) 1 GM Q8H IV Sodium Chloride (SODIUM CHLORIDE) 10 ML Miscellaneous Information (LOVENOX PHARMACY TO DOSE) 1 EACH ASDIR SUBQ ( CKD) Sodium Chloride (SODIUM CHLORIDE 0.9%) 1,000 ML .[id number] IV (DC) Phenylephrine HCl (Phenylephrine PF 500 [...] 20 ML .STK-MED ONE IV (DC) Rocuronium [place] (ZEMURON) 0 .STK-MED ONE IV (DC) Propofol [...] Sodium Chloride (SODIUM CHLORIDE 0.9%) 1,000 ML .[id number] IV Results Findings/Data: Laboratory Tests 12/15/23 050: [Embedded Image Not Available] 12/15/2316: [Embedded Image Not Available] Laboratory Tests 12/14 499 Chemistry Sodium (134 - 147 mEq/L) 139 [...] 5.0 g/dL) 3.20 L Laboratory Tests 12/14 16 Hematology WBC (4.5 - 11.0 x10 3/uL) [...] (Auto) (14.0 - 32.0 %) 9.6 L Bladen % (Auto) (4.8 - 9.0 %) 1.8 L Eos % (Auto) (0.3 - 3.7 %) 0.0 L Baso % (Auto) (0.0 - 2.0 %) 0.3 Neut # (Auto) (2.0 - 7.6 x10 3/uL) 6.64 Lymph # (Auto) (1.0 - 3.8 x10 3/uL) 0.73 L Bladen # (Auto) (0.1 - 0.8 x10 3/uL) [...] Procedure - Status Source Growth 12/14 0529 [facility] Surveillance Screen - COMP NASAL Radiology data: [...] profiling. I will obtain and review her [facility] records for initial cancer history. start dex [...] competion of xrt. all questions answered. at 2256 Addendum 1: 12/15/232254 by Leanna Mosher MD hypercalcemi s/p zometa x 1 on 12/13 calcium normal aggresive DVT prophylaxis starte don lovenox 30mg q 12. at 2259 RPT #:[id number] END OF REPORT [facility] 2023-12-15 14:21:00 [facility]) Hospitalist Progress Note REPORT#:[id number] REPORT STATUS: Signed REPORT INITIALIZATION DATE:12/15/23 TIME: 1420 PATIENT: JUSTYNA GAMING UNIT #: [id number] ROOM/BED: [place] [address] : 49 AGE: 73 SEX: F ATTEND: Mirna Delcid DO ADM AUTHOR: Yoseph Floyd MD REPT SERVICE DT/TIME: 12/15/23 1421 * ALL edits or amendments must be [...] 13 134/63 100 Simple 8 mask 12/14 06 97.8 57 20 181/88 98 Nasal 3 [...] Extremities: no clubbing, no cyanosis, no edema Neuro/SOFTWARE DEVELOPMENT LEADER: alert, oriented X 3 Results Radiology data: Laboratory Tests 12/15/23 0500: [Embedded Image Not Available] 12/15/23 0017: [Embedded Image Not Available] 12/14/23 1313: [Embedded Image Not Available] 12/13/23 2254: [Embedded Image Not Available] Current Medications Sig/Fozia Start time Last Medication Dose Route Stop Time Status Admin Enoxaparin Sodium 30 MG Q12HR 12/14 2100 AC SUBQ 03/14 2059 Cefazolin Sodium 1 GM Q8H 12/14 1600 AC Sodium Chloride 10 ML IV 12/15 0002 Miscellaneous 1 EACH ASDIR 12/14 1015 CKD Information SUBQ 12/21 1014 Sodium Chloride 1,000 ML .[id number] 12/14 1015 DC IV 03/14 1014 Phenylephrine [...] HCl 0 .STK-MED ONE 12/14 0802 DC .ROUTE Fentanyl Citrate 0 .STK-MED ONE 12/14 0703 DC .ROUTE Lidocaine HCl 0 .STK-MED ONE 12/14 07 DC .ROUTE Propofol 20 ML .STK-MED ONE 12/14 0702 DC IV Rocuronium [place] 0 .STK-MED ONE 12/14 0702 DC IV Propofol 100 ML .STK-MED ONE 12/14 0656 DC IV Clonidine HCl 0 .STK-MED ONE 12/14 0631 DC .ROUTE Epinephrine 0 .STK-MED ONE 12/14 06 DC .ROUTE Ropivacaine 0 .STK-MED ONE 12/14 06 DC .ROUTE Tobramycin Sulfate 0 .STK-MED ONE 12/14 06 DC .ROUTE Tranexamic Acid 0 .STK-MED ONE 12/14 06 DC .ROUTE Vancomycin HCl 0 .STK-MED ONE 12/14 06 DC .ROUTE Ketorolac 0 .STK-MED ONE 12/14 06 DC Tromethamine .ROUTE Vancomycin HCl 1,000 MG PREOP ONCALL 12/14 06 CKD 12/14 Sodium Chloride 250 ML IV [...] 12/13 1245 CKD 12/14 PO 01/12 2359 0602 Lactated Ringer's 1,000 ML PREOP ONCALL 12/13 1245 AC IV 03/13 1244 Sodium Chloride 20 ML ASDIR 12/13 1245 AC IV 12/14 2359 Albuterol/Ipratropium 3 ML RTQ4H PRN PRN 12/13 0300 AC NEB 03/13 0259 Azithromycin 500 MG Q24H 12/13 0300 AC 12/14 Sodium Chloride 250 ML IV 12/16 0259 0328 Hydralazine HCl 10 MG Q6H PRN PRN 12/13 0300 AC IV 03/13 0259 Acetaminophen 650 MG Q4H PRN PRN 12/13 0230 AC 12/13 PO 03/13 229 1217 Al Hydrox/Mg Hydrox/ 30 ML Q4H PRN PRN 12/13 0230 AC Simethicone PO 03/13 229 Docusate Sodium 100 MG BID PRN PRN 12/13 023 AC PO 03/13 229 Sodium Chloride 1,000 ML .[id number] 12/13 229 AC 12/13 IV 03/13 229 1659 Laboratory Tests: 12/14 12/14 0500 0017 [...] (Auto) (14.0 - 32.0 %) 9.6 L Bladen % (Auto) (4.8 - 9.0 %) 1.8 L Eos % (Auto) (0.3 - 3.7 %) 0.0 L Baso % (Auto) (0.0 - 2.0 %) 0.3 Neut # (Auto) (2.0 - 7.6 x10 3/uL) 6.64 Lymph # (Auto) (1.0 - 3.8 x10 3/uL) 0.73 L Bladen # (Auto) (0.1 - 0.8 x10 3/uL) [...] at T9-T10 and at T10-T11 Impression By: [email or web address] - Ann Oneill M.D. RADIOLOGY - XR PELVIS 1/2 VIEWS 12/14 0833 Report Impression - Status: SIGNED Entered: 12/15/2023 1153 IMPRESSION: Femoral component right hip replacement appears satisfactory. Impression By: Haylee - Quentin Soto M.D. RADIOLOGY - XR HIP W/PEL UNI 2+V RT 12/14 1104 Report Impression - Status: SIGNED Entered: 12/15/2023 1300 IMPRESSION: A hip prosthesis is identified. No new fracture is identified. There is air in the soft tissues, consistent with recent surgery. Metastatic disease to the bones is again demonstrated. Impression By: Lindsey Grissom M.D. Free Text Obj Notes Free [...] hospital for 5 treatments. at 1423 RPT #:[id number] END OF REPORT [facility] 2023-12-15 11:25:00 [facility] ([facility]) Operative Note - Full REPORT#:[id number] REPORT STATUS: Signed REPORT INITIALIZATION DATE:12/15/23 TIME: 1124 PATIENT: JUSTYNA GAMING UNIT #: [id number] ROOM/BED: [facility] : 49 AGE: 73 SEX: F ATTEND: Mirna Delcid DO ADM AUTHOR: Alirio Hurtado MD REPT SERVICE DT/TIME: 12/15/231124 * ALL edits or amendments must be made on the electronic/computer document * Operative Report ORM Surgeries: Surgery Date and Time: 12/15/2023 07 Proposed Primary Procedure: RIGHT HEMIARTHROPLASTY HIP Start date: 12/15/23 Start time: 744 Pre-procedure diagnosis: right pathologic femoral neck fracture S72.031A M84.451 Post-procedure diagnosis: right pathologic femoral neck fracture S72.031A M84.451 Procedures performed: Right hip hemiarthroplasty 82204 Technique/Procedure: See free text Primary Surgeon: Alirio Hurtado Hat Maker(s): Raghavendra Jiang Anesthesia: general anesthesia Indications: see free text Operative findings: Pathologic right femoral neck fracture Complications: none Estimated blood loss in ml's: 300ccs Specimens removed/altered: femoral head and neck sent to pathology Implant(s): Shayne Accolade C Size 3 stem, bipolar 47mm [...] from PT Alirio Hurtado MD at 1131 [facility] #:[id number] END OF REPORT [facility] 2023-12-15 11:08:00 [facility] ([facility]) Clinical Note REPORT#:[id number] REPORT STATUS: Signed REPORT INITIALIZATION DATE:12/15/23 TIME: 1108 PATIENT: JUSTYNA GAMING UNIT #: [id number] ROOM/BED: [place] [address] : 49 AGE: 73 SEX: F ATTEND: [...] now, please call prn. at 1111 RPT #:[id number] END OF REPORT [facility] 2023-12-15 10:15:00 [facility] Orthopaedic Consult Note REPORT#:[id number] REPORT STATUS: Signed REPORT INITIALIZATION DATE:12/15/23 TIME: 1015 PATIENT: JUSTYNA GAMING UNIT #: [id number] ROOM/BED: [place] [address] : 49 AGE: 73 SEX: F ATTEND: [...] disease, Periph arterial disease, Pressure ulcer, Prior VA, Schizophrenia, Sickle cell disease, Steroid use, Transfusion [...] surgery, Nephrectomy, PCI, Prostate surgery, Thyroidectomy, Tracheotomy, SOIL SCIENCE TEACHER shunt. Additional surgical history: Bilateral Breast lumpectomy [...] ONE 12/14 0820 DC (GLYCOPYRROLATE) .ROUTE Rocuronium [place] 0 .STK-MED ONE 12/14 0702 DC (ZEMURON) [...] ONCE 12/14 0815 CKD (ULTRAM) PO 12/14 180 Hydromorphone HCl 0 .STK-MED ONE 12/14 0802 DC (DILAUDID) .ROUTE Fentanyl Citrate 0 .STK-MED ONE 12/14 0703 DC (SUBLIMAZE) .ROUTE Propofol 20 ML .STK-MED ONE 12/14 0702 DC (DIPRIVAN 200MG/20ML IV INJECTION) Propofol 100 [...] Time Status Admin Sodium Chloride 1,000 ML .[id number] 12/14 1015 DC (SODIUM CHLORIDE IV 03/14 [...] IV 12/14 2359 Sodium Chloride 1,000 ML .[id number] 12/13 0230 AC 12/13 (SODIUM CHLORIDE IV [...] Status Admin Mupirocin 0 .STK-MED ONE 12/14 05 DC (BACTROBAN 2% 22 GM NASAL OINTMENT) Mupirocin 1 APPLIC BID 12/14 0530 AC 12/14 (BACTROBAN 2% 22 GM NASAL 12/18 0901 0603 OINTMENT) Other Sig/Fozia Start time Last Medication Dose Route Stop Time Status Admin Miscellaneous 1 EACH ASDIR 12/14 1015 PEND Information SUBQ 12/21 1014 ([employer] [facility]ACY TO DOSE) Allergies: Coded Allergies: aspirin [...] Chloride (SODIUM CHLORIDE) 10 ML Miscellaneous Information ([employer] PHARMACY TO DOSE) 1 EACH ASDIR SUBQ ( PEND) Sodium Chloride (SODIUM CHLORIDE 0.9%) 1,000 ML .[id number] IV (DC) Phenylephrine HCl (Phenylephrine PF 500 [...] 20 ML .STK-MED ONE IV (DC) Rocuronium [place] (ZEMURON) 0 .STK-MED ONE IV (DC) Propofol [...] Sodium Chloride (SODIUM CHLORIDE 0.9%) 1,000 ML .[id number] IV Physical Exam General appearance: alert, awake, oriented Foot-left: neurovascular intact, non-tender, normal inspection, palpable pulses Foot-right: neurovascular intact, non-tender, normal inspection, palpable pulses Hip/thigh-right: pain with ROM, tenderness, neurovascular intact HEENT: atraumatic, normocephalic Neck: full range of motion, non-tender Cardiovascular: pedal pulses present, regular rate rhythm Respiratory: no distress Abdomen: non-tender, soft Neuro/SOFTWARE DEVELOPMENT LEADER: alert, oriented X 3, normal speech Skin: [...] (Auto) (14.0 - 32.0 %) 9.6 L Bladen % (Auto) (4.8 - 9.0 %) 1.8 L Eos % (Auto) (0.3 - 3.7 %) 0.0 L Baso % (Auto) (0.0 - 2.0 %) 0.3 Neut # (Auto) (2.0 - 7.6 x10 3/uL) 6.64 Lymph # (Auto) (1.0 - 3.8 x10 3/uL) 0.73 L Bladen # (Auto) (0.1 - 0.8 x10 3/uL) [...] right hip hemiarthroplasty. NPO. at 1124 RPT #:[id number] END OF REPORT [facility] 2023-12-14 17:05:00 [facility] Neurosurgical Consultation REPORT#:[id number] REPORT STATUS: Signed REPORT INITIALIZATION DATE:12/14/23 TIME: 1704 PATIENT: JUSTYNA GAMING UNIT #: [id number] ROOM/BED: [facility] : 49 AGE: 73 SEX: F ATTEND: [...] been followed ( last in ) at [facility] by Dr. Mcqueen (breast surgeon) since [...] disease, Periph arterial disease, Pressure ulcer, Prior VA, Schizophrenia, Sickle cell disease, Steroid use, Transfusion [...] surgery, Nephrectomy, PCI, Prostate surgery, Thyroidectomy, Tracheotomy, SOIL SCIENCE TEACHER shunt. Additional surgical history: Bilateral Breast lumpectomy [...] , appear well nourished and not cachectic Neuro/SOFTWARE DEVELOPMENT LEADER: alert, oriented X 3, CN II-XII intact, [...] today, as per my discussion with the instrumentation and controls technician. If she gets her hip fracture addressed surgically by Orhtopedician (Dr. Hurtado), it is imperative that adequate spinal precautions are being taken during positioning in the OR for her hip surgery. at 2713 RPT #:[id number] END OF REPORT [facility] 2023-12-14 16:36:00 [id number] [address] PATIENT NAME: JUSTYNA GAMING ADMIT DATE: 12/13/23 ACCOUNT NO: [id number] [place]OM NO: [facility] AGE: 73 REPORT TYPE: eELECTROCARDIOGRAM REPORT SEX: F ADMITTING PHYSICIAN:Marques Lim MD ATTENDING PHYSICIAN:Mirna Delcid DO Order: [id number] Test Reason : PRE OP PROTOCOL Test [...] MD at 1835 PATIENT NAME: JUSTYNA GAMING [facility] 2023-12-14 16:27:00 [facility] ([facility]) Tevin/Oncology Consult Note REPORT#:[id number] REPORT STATUS: Signed REPORT INITIALIZATION DATE:12/14/23 TIME: 1626 PATIENT: JUSTYNA GAMING UNIT #: [id number] ROOM/BED: [place] [address] : 49 AGE: 73 SEX: F ATTEND: [...] was under care of DR Mcqueen at [facility]. she has not been on endocrine [...] Hydralazine HCl 10 MG X1ED STA 12/12 2202 DC 12/12 (APRESOLINE) IV 12/12 2202 2230 Central Nervous System Agents Sig/Fozia Start [...] IV 12/14 2359 Sodium Chloride 1,000 ML .[id number] 12/13 0230 AC 12/13 (SODIUM CHLORIDE IV 03/13 022 0353 0.9%) Eye, Ear, Nose And Throat [...] PRN 12/13 0230 AC (COLACE) PO 03/13 229 Ondansetron HCl 4 MG X1ED STA 12/12 2201 DC 12/12 (ZOFRAN) IV 12/12 Allergies: Coded Allergies: aspirin (NAUSEA 12/14/23) cefdinir [...] Available] Laboratory Tests 12/13 12/13 12/12 1313 4124 1856 Chemistry Sodium (134 - 147 mEq/L) 139 [...] (Auto) (14.0 - 32.0 %) 10.1 L Bladen % (Auto) (4.8 - 9.0 %) 5.8 Eos % (Auto) (0.3 - 3.7 %) 0.3 Baso % (Auto) (0.0 - 2.0 %) 0.3 Neut # (Auto) (2.0 - 7.6 x10 3/uL) 4.98 Lymph # (Auto) (1.0 - 3.8 x10 3/uL) 0.61 L Bladen # (Auto) (0.1 - 0.8 x10 3/uL) [...] 2333 Report Impression - Status: SIGNED Entered: 12/14/20235 IMPRESSION: Extensive lytic osseous metastatic disease. Acute [...] CT LOWER EXTRM W/O C RT 12/12 6365 Report Impression - Status: SIGNED Entered: 12/14/2023 [...] profiling. I will obtaina nd review her [facility] records for initial cancer history. start dex [...] x 1 monitor calcium. at 1640 RPT #:[id number] END OF REPORT [facility] 2023-12-14 15:57:00 [facility] ([facility]) Clinical Note REPORT#:[id number] REPORT STATUS: Signed REPORT INITIALIZATION DATE:12/14/23 TIME: 1556 PATIENT: JUSTYNA GAMING UNIT #: [id number] ROOM/BED: [place] [address] : 49 AGE: 73 SEX: F ATTEND: [...] Blood pressure medication added. at 1604 RPT #:[id number] END OF REPORT [facility] 2023-12-14 02:24:00 [facility] ([facility]) Hospitalist History Physical REPORT#:[id number] REPORT STATUS: Signed REPORT INITIALIZATION DATE:12/14/23 TIME: 223 PATIENT: JUSTYNA GAMING UNIT #: [id number] ROOM/BED: [place] [address] : 49 AGE: 73 SEX: F ATTEND: Marques Lim MD ADM AUTHOR: Marques Lim MD REPT SERVICE DT/TIME: 12/14/234 * ALL edits or amendments must be [...] Sodium Chloride (SODIUM CHLORIDE 0.9%) 1,000 ML .[id number] IV Iopamidol (ISOVUE-300 100ML) 150 ML .STK-MED ONE IV (DC) Hydralazine HCl (APRESOLINE) 10 MG X1ED STA IV (DC) Hydromorphone HCl (DILAUDID) 1 MG X1ED STA IV (DC) Ondansetron HCl (ZOFRAN) 4 MG X1ED STA IV (DC) Results Findings/Data: Laboratory Tests: 12/124 Chemistry Sodium (134 - 147 [...] (Auto) (14.0 - 32.0 %) 10.1 L Bladen % (Auto) (4.8 - 9.0 %) 5.8 Eos % (Auto) (0.3 - 3.7 %) 0.3 Baso % (Auto) (0.0 - 2.0 %) 0.3 Neut # (Auto) (2.0 - 7.6 x10 3/uL) 4.98 Lymph # (Auto) (1.0 - 3.8 x10 3/uL) 0.61 L Bladen # (Auto) (0.1 - 0.8 x10 3/uL) [...] rami fractures. Impression By: Leonela White M.D. Free Text PE Notes Free [...] course CODE STATUS: full code. at 0621 RPT #:[id number] END OF REPORT [facility] 2023-12-13 21:43:00 [facility] ([facility]) EMERGENCY PROVIDER REPORT REPORT#:[id number] REPORT STATUS: Signed DATE:12/13/23 TIME: 2142 PATIENT: JUSTYNA GAMING UNIT #: [id number] ROOM/BED: [place] [address] AGE: 73 SEX: F PCP PHYS: No [...] intact, 5 /5 strength, sensation intact Re-Evaluation MDM ED Course Medication(s) Ordered Medication(s) Ordered: Cardiovascular [...] Call Information will see patient at 0133 RPT #:[id number] END OF REPORT [facility]
--- NOTE | 2025-01-11 10:53 | RAD REPORT ---
EXAMINATION: CT HEAD WITHOUT CONTRAST CT CERVICAL SPINE WITHOUT CONTRAST CLINICAL INDICATION:. Head and neck pain. Breast cancer. Metastatic disease TECHNIQUE: Axial CT images from the skull base to the vertex without intravenous contrast. Axial CT i mages through the cervical spine were obtained without intravenous contrast. Sagittal and coronal reformatted images were created from the data set. Coronal and sagittal reformatted images were creat ed from the data set. One or more of the following dose reduction techniques were used: Automated exposure control, adjustment of the mA and/or kV according to patient size, and/or iterative reconstr uction. Unless otherwise specified, incidental findings do not require dedicated imaging follow-up. [id number]. Comparison: 2023 FINDINGS: An intracranial bleed is not seen. Ventricles are normal in caliber. No significant hypodensity within the brain No extra-axial fluid collection. Bony skull metastases. All of the cervical vertebral metastatic lesions. Pathologic fractures involve the C4-C5 vertebral bodies. No significant retropulsion of bone into the spinal canal seen. No obvious spinal canal mass visualized. Clavicular and rib metastases IMPRESSION: No acute intracranial abnormality noted Extensive metastatic disease involving the cervical spine. Pathologic compression fractures C4 and C5 vertebral bodies without visualization of retropulsion of bone into the spinal canal If evaluation of the spinal canal is without wired then MRI with contrast would recommended.
--- NOTE | 2025-01-11 12:24 | EDPHYS ---
Physician Documentation [facility] Name: Amy Gaming Age: 74 yrs Sex: Female : 1950 Arrival Date: 01/11/2025 Time: 09:56 Bed 5 Private MD: ADE Physician Sharon Hagen HPI: 01/11 10:20 This 74 yrs old Female presents to ER via Unassigned with complaints of Fall sw6 from wheelchair. 10:20 Details of fall: The patient fell from an upright position, Trying to sit down in her sw6 wheelchair. Onset: The symptoms/episode began/occurred just prior to arrival. The patient presents from home and EMS for evaluation status post a mechanical fall that occurred just prior to arrival while she was trying to sit back down in her wheelchair. She does use a wheelchair for ambulation at all times. She reports she fell onto her left side but denies hitting her head. No loss of consciousness. She does not take any blood thinners. She was able to use her alert device to call for help. She was unable to get herself back up. She denies any headache or neck pain. No arm or leg pain. She does have a history of metastatic breast cancer and is currently in hospice. No medication given prior to arrival. She denies any pain at present time. 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 Here for evaluation. Historical: - Allergies: 12:55 Aspirin; db 12:55 Codeine; db 12:55 Morphine; db 12:55 SHELLFISH; db - PMHx: 12:55 Hypertensive disorder; Stage 4 bone cancer (Hypothyroidism); Hip Fracture db (Hypothyroidism); Stage 4 Breast Cancer (Hypothyroidism); Hypothyroidism; - PSHx: 12:55 Hip surgery (yr); db - Immunization history: Last tetanus immunization: unknown. - Infectious Disease History:: Denies. - Social history:: Smoking status: Patient denies any tobacco usage or history of. ROS: 10:20 Constitutional: Negative for fever, chills, and weight loss, Cardiovascular: Negative sw6 for chest pain, palpitations, and edema, Respiratory: Negative for shortness of breath, cough, wheezing, and pleuritic chest pain, Abdomen/GI: Negative for abdominal pain, nausea, vomiting, diarrhea, and constipation, MS/Extremity: Negative for injury and deformity, 10:20 All other systems are negative, Exam: 10:20 Constitutional: This is a well developed, well nourished patient who is awake, alert, sw6 and in no acute distress. Neck: Trachea midline, no thyromegaly or masses palpated, and no cervical lymphadenopathy. Supple, full range of motion without nuchal rigidity, or vertebral point tenderness. No Meningismus. Chest/axilla: Normal chest wall appearance and motion. Nontender with no deformity. No lesions are appreciated. Cardiovascular: Regular rate and rhythm with a normal S1 and S2. No gallops, murmurs, or rubs. Normal PMI, no JVD. No pulse deficits. Respiratory: Lungs have equal breath sounds bilaterally, clear to auscultation and percussion. No rales, rhonchi or wheezes noted. No increased work of breathing, no retractions or nasal flaring. Abdomen/GI: Soft, non-tender, with normal bowel sounds. No distension or tympany. No guarding or rebound. No evidence of tenderness throughout. Back: No spinal tenderness. No costovertebral tenderness. Full range of motion. MS/ Extremity: Pulses equal, no cyanosis. Neurovascular intact. Full, normal range of motion. Neuro: Awake and alert, GCS 15, oriented to person, place, time, and situation. Cranial nerves II-XII grossly intact. Motor strength 5/5 in all extremities. Sensory grossly intact. Cerebellar exam normal. Normal gait. Vital Signs: 10:00 BP 131 / 77; Pulse 100; Resp 20; Temp 98; Pulse Ox 98% on 2 lpm NC; bp 10:54 BP 136 / 70; Pulse 77; Resp 16; Pulse Ox 100% on 2 lpm NC; db 11:30 BP 109 / 57; Pulse 83; Resp 16; Pulse Ox 100% ; db 12:15 BP 137 / 65; Pulse 73; Resp 16; Pulse Ox 100% ; db 12:45 BP 125 / 74; Pulse 79; Resp 16; Pulse Ox 100% on 2 lpm NC; db 13:30 BP 132 / 60; Pulse 79; Resp 18; Pulse Ox 100% on R/A; db 14:00 BP 110 / 63; Pulse 75; Resp 16; Pulse Ox 100% ; db Kasia Coma Score: 10:00 Eye Response: spontaneous(4). Motor Response: obeys commands(6). Verbal Response: bp oriented(5). Total: 15. Trauma Score (Adult): 10:00 Eye Response: spontaneous(1); Verbal Response: oriented(1); Motor Response: obeys bp commands(2); Systolic BP: > 89 mm Hg(4); Respiratory Rate: 10 to 29 per min(4); Kasia Score: 15; Trauma Score: 12 MDM: 10:20 Differential diagnosis: abrasion, closed head injury, contusion, fracture. Data reviewed: vital signs, nurses notes. 10:31 Medical Screening Exam initiated 12:22 Data reviewed: radiologic studies, CT scan. ED course: The CT of her head and cervical [facility] spine show pathologic compression fractures of C4 and C5. A cervical collar was applied at bedside. Spoke with the patient as well as her daughter regarding her need for admission for continued management. They do prefer [facility] [[email or web address]] as she has received previous care there. Spoke with Dr. Collado with the neurosurgery service at [facility] [[email or web address]] in [place] and the patient was accepted for admission for continued management. She is pending transportation.. 01/11 11:42 Order name: Basic Metabolic Panel [facility] 01/11 11:42 Order name: CBC with Diff [facility] 01/11 11:42 Order name: Type And Screen [facility] 01/11 12:54 Order name: Manual Differential [facility] 01/11 10:10 Order name: CT Head C Spine; Complete Time: 10:54 [facility] 01/11 10:55 Interpretation: Abnormal: C4 and C5 compression fractures. [facility] 01/11 11:42 Order name: Labs collected and sent; Complete Time: 12:08 [facility] Administered Medications: 13:00 Drug: Ondansetron IVP 4 mg IVP once; over 2 minutes Route: IVP; Site: right antecubital;db 13:34 Follow up: Response: No adverse reaction db Disposition Summary: 01/11/25 12:23 Transfer Ordered Notes: Transfer Location: [facility] Reason: Higher level of care 6 Condition: Fair sw6 Problem: new 6 Symptoms: are unchanged 6 Accepting Physician: Dr. Collado(01/11/25 14:28) db Diagnosis - C4 and C5 compression fracture [facility] Forms: - Medication Reconciliation Form 6 - SBAR form sw Signatures: Dispatcher [employer] Robert Freedman RN RN bp Maile Gregg RN RN db Sharon Hagen MD MD sw6 Corrections: (The following items were deleted from the chart) 12:24 10:20 The patient presents from home and EMS for evaluation status post a mechanical sw6 fall that occurred just prior to arrival while she was trying to sit back down in her wheelchair. She does use a wheelchair for ambulation at all times. She reports she fell onto her left side but denies hitting her head. No loss of consciousness. She does not take any blood thinners. She was able to use her alert device to call for help. She was unable to get herself back up. She denies any headache or neck pain. No arm or leg pain. She does have a history of metastatic breast cancer and is currently in hospice. No medication given prior to arrival. She denies any pain at present time. here for evaluation. sw6 14:28 12:23 Dr. Collado sw6 db
--- NOTE | 2025-01-11 12:24 | ER ---
Nurse's Notes [facility] Name: Amy Gaming Age: 74 yrs Sex: Female : 1950 Arrival Date: 01/11/2025 Time: 09:56 Bed 5 Private MD: Diagnosis: C4 and C5 compression fracture Presentation: 01/11 10:00 Chief complaint: EMS states: FALL FROM CHAIR. Care prior to arrival: None. Mechanism of bp Injury: Fall out of chair. Trauma event details: Injury occurred in the [facility] [place], Injury occurred: at home. Injury occurred: January 11, 2025 Injury occurred at: 09:30. 10:00 Acuity: NAM 3 bp 10:00 Method Of Arrival: EMS: [facility] bp 12:00 Coronavirus screen: Client denies travel out of the [place] in the last 14 days. At this db time, the client does not indicate any symptoms associated with coronavirus-19. Ebola Screen: Patient negative for fever greater than or equal to 101.5 degrees Fahrenheit, and additional compatible Ebola Virus Disease symptoms Patient denies exposure to infectious person. Patient denies travel to an Ebola-affected area in the 21 days before illness onset. No symptoms or risks identified at this time. Initial Sepsis Screen: Does the patient meet any 2 criteria? No. Patient's initial sepsis screen is negative. Does the patient have a suspected source of infection? No. Patient's initial sepsis screen is negative. Risk Assessment: Do you want to hurt yourself or someone else? Patient reports no desire to harm self or others. Onset of symptoms was January 11, 2025. Trauma Activation: Not Applicable Physician: ED Physician; Name: ; Notified At: ; Arrived At: Physician: General Surgeon; Name: ; Notified At: ; Arrived At: Physician: Radiology; Name: ; Notified At: ; Arrived At: Physician: Respiratory; Name: ; Notified At: ; Arrived At: Physician: Lab; Name: ; Notified At: ; Arrived At: Historical: - Allergies: 12:55 Aspirin; db 12:55 Codeine; db 12:55 Morphine; db 12:55 SHELLFISH; db - PMHx: 12:55 Hypertensive disorder; Stage 4 bone cancer (Hypothyroidism); Hip Fracture db (Hypothyroidism); Stage 4 Breast Cancer (Hypothyroidism); Hypothyroidism; - PSHx: 12:55 Hip surgery (yr); db - Immunization history: Last tetanus immunization: unknown. - Infectious Disease History:: Denies. - Social history:: Smoking status: Patient denies any tobacco usage or history of. Screenin:00 Abuse screen: Denies threats or abuse. Denies injuries from another. Tuberculosis bp screening: No symptoms or risk factors identified. 14:26 [facility] ED Fall Risk Assessment (Adult) History of falling in the last 3 months, db including since admission Yes- single mechanical fall (1 pt) Confusion or Disorientation No (0 pts) Intoxicated or Sedated No (0 pts) Impaired Gait Yes (1 pt) Mobility Assist Device Used Yes (1 pt) Altered Elimination No (0 pt) Score/Fall Risk Level 3 or more points = High Risk Oriented to surroundings, Maintained a safe environment. Nutritional screening: No deficits noted. Primary Survey: 10:00 NO uncontrolled hemorrhage observed. A: The client is awake and alert. The airway is bp patent. Breathing/Chest: Spontaneous respiratory effort, equal unlabored respirations, breath sounds clear bilaterally, regular pattern, symmetrical chest rise and fall. Circulation: No external hemorrhage present. Regular and strong central pulse, skin warm/dry/normal color. Disability Client is alert. Exposure/Environment: All clothing and personal items were removed. Forensic evidence collection is not deemed to be indicated at this time. Items placed in patient belonging bag. There is no evidence of uncontrolled external bleeding. 12:58 Reassessment Alertness and Airway: Awake and alert. The airway is patent. Breathing: db Spontaneous respiratory effort, equal unlabored respirations, breath sounds clear bilaterally, regular pattern with symmetrical chest rise and fall. Circulation: No external hemorrhage noted. Regular and strong central pulse, skin warm/dry/normal color. Disability: Alert. Assessment: 10:00 General: Appears in no apparent distress. uncomfortable, Behavior is calm, cooperative, bp appropriate for age. Pain: Complains of pain in left arm and left leg. Neuro: Level of Consciousness is awake, alert, obeys commands, Oriented to Appropriate for age. EENT: No deficits noted. Cardiovascular: No deficits noted. Respiratory: No deficits noted. GI: No signs and/or symptoms were reported involving the gastrointestinal system. : No signs and/or symptoms were reported regarding the genitourinary system. Derm: No deficits noted. Musculoskeletal: Reports pain in left arm and left leg. 12:57 Reassessment: Patient appears in no apparent distress at this time. Patient and/or db family updated on plan of care and expected duration. Pain level reassessed. Patient is alert, oriented x 3, equal unlabored respirations, skin warm/dry/pink. REPORT CALLED TO [facility]. 14:00 Reassessment: Patient appears in no apparent distress at this time. Patient and/or db family updated on plan of care and expected duration. Pain level reassessed. Patient is alert, oriented x 3, equal unlabored respirations, skin warm/dry/pink. Vital Signs: 10:00 BP 131 / 77; Pulse 100; Resp 20; Temp 98; Pulse Ox 98% on 2 lpm NC; bp 10:54 BP 136 / 70; Pulse 77; Resp 16; Pulse Ox 100% on 2 lpm NC; db 11:30 BP 109 / 57; Pulse 83; Resp 16; Pulse Ox 100% ; db 12:15 BP 137 / 65; Pulse 73; Resp 16; Pulse Ox 100% ; db 12:45 BP 125 / 74; Pulse 79; Resp 16; Pulse Ox 100% on 2 lpm NC; db 13:30 BP 132 / 60; Pulse 79; Resp 18; Pulse Ox 100% on R/A; db 14:00 BP 110 / 63; Pulse 75; Resp 16; Pulse Ox 100% ; db [place] Coma Score: 10:00 Eye Response: spontaneous(4). Motor Response: obeys commands(6). Verbal Response: bp oriented(5). Total: 15. Trauma Score (Adult): 10:00 Eye Response: spontaneous(1); Verbal Response: oriented(1); Motor Response: obeys bp commands(2); Systolic BP: > 89 mm Hg(4); Respiratory Rate: 10 to 29 per min(4); Kasia Score: 15; Trauma Score: 12 ED Course: 10:00 Patient has correct armband on for positive identification. bp 10:00 Oxygen administration via nasal cannula \T\ 2L/min. bp 10:01 Patient arrived in ED. bd 10:04 Sharon Hagen MD is Attending Physician. sw6 10:16 Maile Gregg, ELZA is Primary Nurse. db 10:22 CT Head C Spine In Process Unspecified. EDMS 11:04 Triage completed. bp 12:00 Thermoregulation: warm blanket given to patient. db 12:08 Initial lab(s) drawn, by me, sent to lab. T\T\S collected, blood band applied to patient. bp Inserted saline lock: 22 gauge in right forearm, using aseptic technique. Blood collected. Flushed with 10 mL NS. 12:14 initiated transfer [facility] ,pt accepted in transfer to [facility] y[facility] leonel sara [address] Cortez. 13:34 Provided Education on: TRANSFER. Client placed on continuous cardiac and pulse oximetry db monitoring. NIBP monitoring applied. monitor worker on. Pulse ox on. NIBP on. Warm blanket given. Pillow given. 14:26 No provider procedures requiring assistance completed. Patient transferred, IV remains db in place. Administered Medications: 13:00 Drug: Ondansetron IVP 4 mg IVP once; over 2 minutes Route: IVP; Site: right antecubital;db 13:34 Follow up: Response: No adverse reaction db Medication: 12:57 VIS not applicable for this client. db Outcome: 12:23 ER care complete, transfer ordered by sw6 14:26 Transferred by ground EMS Transfer form completed. X-rays sent w/ patient. db 14:26 Condition: stable 14:26 Instructed on the need for transfer, 14:28 Patient left the ED. db Signatures: Dispatcher [employer] EDMS Joleen Rios Brian, RN RN bp Benton, Danielle, RN RN db Williams, Sandra, MD MD sw6 Corrections: (The following items were deleted from the chart) 12:59 12:45 BP 125 / 74; Pulse 79bpm; Resp 16bpm; Pulse Ox 100%; db db 12:59 10:54 BP 136 / 70; Pulse 77bpm; Resp 16bpm; Pulse Ox 100% RA; db db
[2025-01-11 12:25] LABS: Absolute Eosinophils 0.1 K/uL (0-0.5); Absolute Lymphocytes (CBC) 0.6 K/uL (0.7-4.9); Absolute Monocytes 0.3 K/uL (0.1-1.3); Absolute Neutrophil 2.6 K/uL (1.8-8.0); Basophils % 1.1 % (0-1.3); Hematocrit 21.9 % (36.0-45.0); Hemoglobin 7.4 g/dL (12.0-15.0); Lymphocytes % 16.2 % (15.3-44.8); MCH 32.5 pg (27.0-35.0); MCV 95.8 fL (80-100); MPV 7.8 fL (7.6-11.3); Monocytes % 8.8 % (3.3-12.3); Neutrophils % 70.9 % (41.7-73.7); Nucleated RBC Absolute Count 0.1 (0-0); Nucleated Red Blood Cells % 1.6 % (0-0); Platelets 77 thou/uL (152-406); RBC Red Blood Cell Count 2.29 M/uL (3.86-4.86)
[2025-01-11 12:40] LABS: Anion Gap 10.9 mEq/L (5.0-15.0); Potassium 3.9 mEq/L (3.5-5.1)
[2025-01-11] MEDS ORDERED: ONDANSETRON 4 MG/2 ML VIAL ONE (13:13)
[2025-01-11 13:57] LABS: Blood Morphology Comment NOT SEEN (NOT SEEN); Differential Total Cells Count 100; Eosinophils 2 % (0-3); Lymphocytes 13 % (15-42); Monocytes 15 % (0-10); Nucleated Red Blood Cells 5 /100WBC; Platelet Estimate DECR; Segmented Neutrophils 69 % (40-80)
[2025-01-11 15:09] VITALS: TEMP 98
[2025-01-11 15:10] VITALS: O2SAT 100
[2025-01-11 15:17] VITALS: BP 110/63
== END 2025-01-11 14:28 | disposition short-term general hospital (02) ==
LOC: ER 09:56
DX: S12.300A Unspecified displaced fracture of fourth cervical vertebra, initial encounter for closed fracture (principal); S12.400A Unspecified displaced fracture of fifth cervical vertebra, initial encounter for closed fracture; W18.30XA Fall on same level, unspecified, initial encounter; Z85.3 Personal history of malignant neoplasm of breast; Z85.830 Personal history of malignant neoplasm of bone
CPT/HCPCS: 85025; 80048; 36415; 86900; 86850; 86901; 70450; 72125; 96374; 99285; J2405